=== PATIENT | female | born 1950 | race Caucasian/White ===

== ENCOUNTER → 2017-02-21 | Outpatient (CLI) | payer BC ==
--- NOTE | 2017-02-21 19:59 | Diagnostic Imaging Report ---
Bilateral screening mammogram. The current study was also evaluated with a Computer Aided Detection (CAD) system. INDICATION: Screening. No current complaints stated on the questionnaire. COMPARISON: 02/18/16. FINDINGS: The breasts are composed of scattered fibroglandular densities. Occasional benign-appearing calcifications are seen. Allowing for technique and positional differences, no suspicious change is seen. IMPRESSION: No significant change. ACR BI-RADS Category 2: Benign findings. Result letter will be mailed to the patient. Note: At least 10% of breast cancer is not imaged by mammography. Dictated by: Dictated on workstation # [id number]
== END ==
LOC: RAD 09:41
PROVIDERS: ATTEND Family Medicine
DX: Z12.31 Encounter for screening mammogram for malignant neoplasm of breast (principal)
CPT/HCPCS: 77067

== ENCOUNTER → 2017-09-05 | Outpatient (CLI) | payer MEDICARE ==
--- NOTE | 2017-09-05 17:20 | Diagnostic Imaging Report ---
Three views of the left knee. INDICATION: Left knee pain. FINDINGS: There is no fracture, dislocation, or radiopaque foreign body. There are tricompartment osteophytes seen. No significant joint space loss is identified. There is suggestion of a small suprapatellar effusion. IMPRESSION: Osteoarthritis. Suggestion of a small suprapatellar effusion. Dictated by: Dictated on workstation # [id number]
== END ==
LOC: RAD 14:14
DX: M17.12 Unilateral primary osteoarthritis, left knee (principal)
CPT/HCPCS: 73562

== ENCOUNTER → 2017-11-02 | Outpatient (CLI) | payer MEDICARE ==
--- NOTE | 2017-11-02 11:19 | Diagnostic Imaging Report ---
PROCEDURE: MRI left joint lower extremity without contrast. TECHNIQUE: Multiplanar, multisequence non contrast-enhanced MRI of the left lower extremity was accomplished. INDICATION: Left knee pain. FINDINGS: There is a small suprapatellar effusion. There is a small popliteal cyst measuring 2.4 x 0.7 x 3 cm. There is mild tendinosis in the distal quadriceps tendon, otherwise the extensor mechanism is intact. There is mild subcutaneous edema anterior to the proximal aspect of the patellar tendon. The PCL and ACL are intact. There is increased signal seen in the posterior root of the lateral meniscus which could be degenerative or related to a nondisplaced tear. The body of the medial meniscus demonstrates extrusion with no definite tear. The MCL and the lateral collateral ligament complex appears intact. Prominent marginal osteophytes are seen particularly medially and in the patellofemoral compartment. There is 50% cartilage thinning in the patellofemoral compartment and 25% cartilage thinning in the medial and lateral compartments suggested. No focal significant marrow signal abnormality. There are some subcutaneous mildly dilated veins compatible with varicose veins. Dilated veins within the medial head of the gastrocnemius muscle is also noted. IMPRESSION: 1. Moderate tricompartment osteoarthritis changes. 2. Small Cazares's cyst. 3. Varicose veins. Dictated by: Dictated on workstation # [id number]
== END ==
LOC: RAD 09:06
PROVIDERS: ATTEND Nurse Practitioner Family
DX: M17.12 Unilateral primary osteoarthritis, left knee (principal); I83.92 Asymptomatic varicose veins of left lower extremity; M71.22 Synovial cyst of popliteal space [Baker], left knee
CPT/HCPCS: 73721

== ENCOUNTER 2018-01-12 12:53 | Outpatient (RCR) | payer MEDICARE | END 2018-01-12 14:23 | disposition home or self-care (01) | PROVIDERS: ATTEND Orthopaedic Surgery | DX: M17.12 Unilateral primary osteoarthritis, left knee (principal) ==

== ENCOUNTER → 2018-03-02 | Outpatient (CLI) | payer MEDICARE ==
--- NOTE | 2018-03-03 11:56 | Diagnostic Imaging Report ---
Procedure: Digital mammogram. Indication: Bilateral screening. Comparison: This study was compared to prior exams of 02/21/2017, 02/18/2016 and 02/04/2015. At this time there are no current complaints. The current study was also evaluated with a Computer Aided Detection (CAD) system. FINDINGS: The fibroglandular tissue in both breasts is heterogeneously dense. This does limit the sensitivity of this exam. Overall, there does not appear to have been any significant change when compared to the prior study. No primary or secondary sign of malignancy is noted. IMPRESSION: There is no radiographic evidence for malignancy. Dictated on workstation # [id number]
== END ==
LOC: RAD 09:27
PROVIDERS: ATTEND Family Medicine
DX: Z12.31 Encounter for screening mammogram for malignant neoplasm of breast (principal)
CPT/HCPCS: 77067

== ENCOUNTER → 2018-05-08 | Outpatient (CLI) | payer MEDICARE ==
[2018-05-08 12:02] LABS: BASOPHILS % (AUTO) 0 % (0-10); EOSINOPHILS # (AUTO) 0.2 10^3/uL (0.0-0.3); EOSINOPHILS % (AUTO) 1 % (0-10); HEMATOCRIT 39 % (35-52); HEMOGLOBIN 12.5 G/DL (11.5-16.0); LYMPHOCYTES # (AUTO) 1.1 X 10^3 (1.0-4.0); LYMPHOCYTES % (AUTO) 8 % (12-44); MEAN CORPUSCULAR HEMOGLOBIN 29 PG (25-34); MEAN CORPUSCULAR HGB CONC 32 G/DL (32-36); MEAN CORPUSCULAR VOLUME 91 FL (80-99); MEAN PLATELET VOLUME 9.4 FL (7.4-10.4); MONOCYTES # (AUTO) 0.8 X 10^3 (0.0-1.0); MONOCYTES % (AUTO) 6 % (0-12); NEUTROPHILS # (AUTO) 11.1 X 10^3 (1.8-7.8); NEUTROPHILS % (AUTO) 84 % (42-75); PLATELET COUNT 268 10^3/uL (130-400); RED BLOOD COUNT 4.26 10^6/uL (4.35-5.85); RED CELL DISTRIBUTION WIDTH 14.9 % (10.0-14.5); WHITE BLOOD COUNT 13.2 10^3/uL (4.3-11.0)
[2018-05-08 12:25] LABS: ERYTHROCYTE SEDIMENTATION RATE 17 MM/HR (0-30)
[2018-05-08 12:28] LABS: CALCIUM 9.7 MG/DL (8.5-10.1); CREATININE SERUM 1.04 MG/DL (0.60-1.30); POTASSIUM 3.8 MMOL/L (3.6-5.0)
--- NOTE | 2018-05-08 13:04 | Diagnostic Imaging Report ---
INDICATION: Pneumonia. Patient complains of shortness of breath and cough. COMPARISON: No prior studies are available for comparison. FINDINGS: The heart is enlarged. The lungs are clear. No infiltrates are detected. There is no evidence of congestive failure. No effusion or pneumothorax is seen. IMPRESSION: 1. Cardiomegaly. 2. No acute pulmonary infiltrate is detected. 3. The report was called to Lucy/financial administration officer of Dr. Unique Frye by romulo@ 1:05 PM. Dictated by: Dictated on workstation # [id number]
== END ==
LOC: RAD 11:34
PROVIDERS: ATTEND Family Medicine
DX: J18.9 Pneumonia, unspecified organism (principal); I51.7 Cardiomegaly
CPT/HCPCS: 36415; 71046; 80048; 85025; 85652

== ENCOUNTER → 2018-05-10 | Outpatient (CLI) | payer MEDICARE ==
[~2018-05-10] MED LIST: IOHEXOL 350 MG/ML 150 ML (OMNIPAQUE 350) VIAL IV ONE; NS 250 ML (IVPB) BAG IV ONE
--- NOTE | 2018-05-10 15:16 | Diagnostic Imaging Report ---
PROCEDURE: CT angiography of the chest with contrast. TECHNIQUE: Multiple contiguous axial images were obtained through the chest after uneventful bolus administration of intravenous contrast. Reconstructed CTA MIP acquisitions were also performed. INDICATION: Dyspnea and elevated d-dimer. FINDINGS: There is good opacification of pulmonary arteries without intraluminal filling defect. The lungs appear clear and well expanded. There is no pleural pericardial fluid. No pathologic adenopathy is identified. IMPRESSION: No CTA evidence of pulmonary embolism. There is no evidence of acute thoracic aortic abnormality or other acute abnormality in the thorax. Dictated by: Dictated on workstation # [id number]
== END ==
LOC: RAD 13:40
PROVIDERS: ATTEND Nurse Practitioner Family
DX: R06.00 Dyspnea, unspecified (principal); R79.1 Abnormal coagulation profile
CPT/HCPCS: 71275

== ENCOUNTER → 2018-06-13 | Outpatient (CLI) | payer MEDICARE ==
[~2018-06-13] MED LIST changes: +AMLO5TAB2 PO; +APIX5TAB PO; +ASPI-983 PO; +ASPI-999 PO; +CARV6.25 PO; +CATHETER FLUSH 10 ML SYR IV PRN; +CLON0.2T PO; +COLE1TAB PO; +CYCL5TAB PO; +DILT120C82 PO; +FURO-124 PO; +GLUC-194 PO; -IOHEXOL 350 MG/ML 150 ML (OMNIPAQUE 350) VIAL IV ONE; +METO-395 PO; -NS 250 ML (IVPB) BAG IV ONE; +POTA10TA36 PO; +REGADENOSON 0.4 MG/5 ML SYR (LEXISCAN) IV ONE; +VALS320T15 PO
[2018-06-13 08:58] VITALS: BP 213/101
[2018-06-13 09:17] VITALS: BP 210/101
--- NOTE | 2018-06-13 23:52 | STRESS TEST ---
DATE OF SERVICE: 06/13/2018 RESTING AND POST REGADENOSON TECHNETIUM-99M TETROFOSMIN SPECT CT IMAGING ORDERING PHYSICIAN: Unique Frye DO PRIMARY CARE PHYSICIAN: Unique Frye DO CLINICAL DIAGNOSIS: Chest pain. Baseline images were carried out after injection of 10.94 mCi of technetium-99m Tetrofosmin. This was followed by 0.4 mg of regadenoson and 30.9 mCi of technetium-99m tetrofosmin for stress imaging. The electrocardiogram showed atrial fibrillation with a controlled ventricular rate and intermittent left bundle branch block. The electrocardiogram did not change significantly with regadenoson infusion. Review of images at rest and following stress does not indicate any significant perfusion defects consistent with significant myocardial ischemia or infarction. Review of images at rest and following stress indicates an anteroseptal perfusion defect, which is small and appears transient. Gated images show mild impairment in global left ventricular systolic function with ejection fraction of 46%. Left ventricular end diastolic volume is 104 mL. TID is absent (1.01). CONCLUSIONS: 1. This study suggests a small amount of anteroseptal ischemia. 2. Mild to moderate cardiomegaly. 3. Mild impairment in global left ventricular systolic function with ejection fraction 46%. 4. The electrocardiogram indicated atrial fibrillation with intermittent left bundle branch block. Job ID: [id number] DocumentID: [id number] Dictated Date: 06/13/2018 20:49:31 Certified Medicine Aide Date: 06/13/2018 22:46:07 Dictated By: DARRIAN KILGORE MD, MA, FACP, FACC, MTDD
== END ==
LOC: CARD 06:48
PROVIDERS: ATTEND Family Medicine
DX: R07.9 Chest pain, unspecified (principal); I51.7 Cardiomegaly
CPT/HCPCS: 78452; 93017

== ENCOUNTER 2018-06-21 10:29 | Outpatient (RCR) | payer MEDICARE ==
[2018-06-22] MEDS ORDERED: VALS320T15 PO (14:06)
[2018-06-22] MEDS ORDERED: CYCL5TAB PO (14:06)
[2018-06-22] MEDS ORDERED: ASPI-999 PO (14:06)
[2018-06-22] MEDS ORDERED: CLON0.2T PO (14:06)
[2018-06-22] MEDS ORDERED: GLUC-194 PO (14:06)
[2018-06-22] MEDS ORDERED: METO-395 PO (14:06)
[2018-06-22] MEDS ORDERED: COLE1TAB PO (14:06)
[2018-06-23] MEDS ORDERED: ASPI-983 PO (12:31)
[2018-06-24] MEDS ORDERED: FURO-124 PO (12:20)
[2018-06-24] MEDS ORDERED: AMLO5TAB2 PO (12:20)
[2018-06-24] MEDS ORDERED: CARV6.25 PO (12:20)
[2018-06-24] MEDS ORDERED: APIX5TAB PO (12:20)
[2018-06-24] MEDS ORDERED: DILT120C82 PO (12:20)
[2018-06-24] MEDS ORDERED: POTA10TA36 PO (12:20)
== END 2018-07-05 10:43 | disposition home or self-care (01) ==
PROVIDERS: ATTEND Family Medicine
DX: M54.2 Cervicalgia (principal); R51 Headache

== ENCOUNTER 2018-06-22 11:28 | Inpatient (IN) | payer MEDICARE ==
[~2018-06-22] VITALS: Ht 167.6 cm; Wt 104.5 kg
[2018-06-22] VITALS (14 sets, daily range): BP systolic 130–197; BP diastolic 79–179
[2018-06-22] MEDS ORDERED: PATIENT MAY USE OWN MEDS, ALL PO SCH (12:15)
[2018-06-22] MEDS ORDERED: ONDANSETRON 4 MG/2 ML (SDV) Z0FRAN IVP PRN (12:15)
[2018-06-22] MEDS ORDERED: ENOXAPARIN 40 MG/0.4 ML (LOVENOX) SYR SC NR (12:30)
--- NOTE | 2018-06-22 12:42 | Diagnostic Imaging Report ---
Indication: Chest pain Frontal chest obtained at 1229 hrs pm, and compared with 05/08/2018. There is cardiomegaly. There is central vascular congestion which appears similar to the prior study. There is some early infiltrate in the right lung base. There is no pneumothorax or pleural fluid. IMPRESSION: Cardiomegaly and central vascular congestion. Early infiltrate in right lung base. No pneumothorax or pleural fluid. Dictated by: Dictated on workstation # [id number]
[2018-06-22 12:45] LABS: BASOPHILS % (AUTO) 0 % (0-10); EOSINOPHILS # (AUTO) 0.2 10^3/uL (0.0-0.3); EOSINOPHILS % (AUTO) 3 % (0-10); HEMATOCRIT 37 % (35-52); LYMPHOCYTES # (AUTO) 0.8 X 10^3 (1.0-4.0); LYMPHOCYTES % (AUTO) 11 % (12-44); MEAN CORPUSCULAR HEMOGLOBIN 30 PG (25-34); MEAN CORPUSCULAR HGB CONC 33 G/DL (32-36); MEAN CORPUSCULAR VOLUME 92 FL (80-99); MEAN PLATELET VOLUME 9.6 FL (7.4-10.4); MONOCYTES # (AUTO) 0.5 X 10^3 (0.0-1.0); MONOCYTES % (AUTO) 7 % (0-12); NEUTROPHILS # (AUTO) 5.5 X 10^3 (1.8-7.8); NEUTROPHILS % (AUTO) 79 % (42-75); PLATELET COUNT 205 10^3/uL (130-400); RED BLOOD COUNT 3.98 10^6/uL (4.35-5.85); RED CELL DISTRIBUTION WIDTH 15.1 % (10.0-14.5)
[2018-06-22 13:04] LABS: ALANINE AMINOTRANSFERASE 30 U/L (0-55); ALKALINE PHOSPHATASE 77 U/L (40-136); BILIRUBIN,TOTAL 1.4 MG/DL (0.1-1.0); BUN/CREATININE RATIO 17; CALCIUM 9.6 MG/DL (8.5-10.1); CARBON DIOXIDE 28 MMOL/L (21-32); CHLORIDE 107 MMOL/L (98-107); CREATININE SERUM 1.08 MG/DL (0.60-1.30); GFR ESTIMATED 51; GLUCOSE 112 MG/DL (70-105); POTASSIUM 4.3 MMOL/L (3.6-5.0); SODIUM 143 MMOL/L (135-145); TOTAL PROTEIN 6.5 GM/DL (6.4-8.2)
[2018-06-22] MEDS ORDERED: CLON0.2T PO (14:06)
[2018-06-22] MEDS ORDERED: COLE1TAB PO (14:06)
[2018-06-22] MEDS ORDERED: METO-395 PO (14:06)
[2018-06-22] MEDS ORDERED: ASPI-999 PO (14:06)
[2018-06-22] MEDS ORDERED: GLUC-194 PO (14:06)
[2018-06-22] MEDS ORDERED: CYCL5TAB PO (14:06)
[2018-06-22] MEDS ORDERED: VALS320T15 PO (14:06)
[2018-06-22] MEDS ORDERED: DILTIAZEM 60 MG (CARDIZEM) TAB ONE (14:55)
[2018-06-22] MEDS ORDERED: amLODIPine 5 MG (NORVASC) TAB ONE (14:55)
[2018-06-22] MEDS ORDERED: amLODIPine 5 MG (NORVASC) TAB PO NR (15:00)
[2018-06-22] MEDS: DILTIAZEM 60 MG (CARDIZEM) TAB PO SCH ×2 (15:01→20:34)
[2018-06-22] MEDS ORDERED: CATHETER FLUSH 10 ML SYR IV PRN (15:15)
[2018-06-22] MEDS ORDERED: FUROSEMIDE 40 MG/4 ML INJ (LASIX) ONE (15:17)
[2018-06-22] MEDS ORDERED: RT-ALBUTEROL/IPRATROPIUM 3 ML (DUONEB) VIAL INH PRN (15:30)
[2018-06-22] MEDS ORDERED: FUROSEMIDE 40 MG/4 ML INJ (LASIX) IVP NR ×3 (15:30→18:30)
[2018-06-22] MEDS ORDERED: LORazepam INJ 2 MG/ML (ATIVAN) VIAL ONE (15:36)
[2018-06-22] MEDS ORDERED: LORazepam INJ 2 MG/ML (ATIVAN) VIAL IVP NR (15:45)
[2018-06-22] MEDS ORDERED: DILTIAZEM 25 MG/5 ML INJ (CARDIZEM) VIAL IV NR (15:45)
[2018-06-22] MEDS ORDERED: DILTIAZEM 25 MG/5 ML INJ (CARDIZEM) VIAL ONE (15:46)
[2018-06-22 15:52] LABS: MEAN PLATELET VOLUME 10.4 FL (7.4-10.4); RED BLOOD COUNT 4.61 10^6/uL (4.35-5.85); RED CELL DISTRIBUTION WIDTH 15.5 % (10.0-14.5); WHITE BLOOD COUNT 10.5 10^3/uL (4.3-11.0)
[2018-06-22 15:53] LABS: ABG BASE EXCESS 0.7 MMOL/L (-2.5-2.5); ABG OXYGEN SATURATION 99 % (94-100); ABG PCO2 42 MMHG (35-45); ABG PH 7.39 (7.37-7.43); ABG PO2 91 MMHG (79-93); ABG TCO2 26.7 MMOL/L (21.0-31.0)
[2018-06-22 15:54] LABS: ALLENS TEST POSITIVE
[2018-06-22 15:55] LABS: INSPIRED O2 4L; PATIENT TEMP 96.2; VENTILATOR NO
[2018-06-22] MEDS ORDERED: NS IV 1000 ML 1,000 ML ONE (16:00)
[2018-06-22] MEDS ORDERED: PROPOFOL DRIP (ICU) 0 ML IV ONE (16:00)
[2018-06-22] MEDS ORDERED: MIDAZOLAM 5 MG/5 ML (VERSED) VIAL ONE (16:00)
[2018-06-22 16:08] LABS: ALBUMIN 4.5 GM/DL (3.2-4.5); BILIRUBIN,TOTAL 1.6 MG/DL (0.1-1.0); CREATININE SERUM 1.01 MG/DL (0.60-1.30); TOTAL PROTEIN 7.5 GM/DL (6.4-8.2)
--- NOTE | 2018-06-22 16:11 | Pulmonary Consultation ---
History of Present Illness History of Present Illness Date of Consultation 06/22/18 1530 Time Seen by Provider: 18:00 Date of Admission History of Present Illness 68yo who was admitted from Dr. Frye's office secondary to progressive SOB and weakness. PT was found to have new onset AFib and recent stress test questioned anterolateral ischemia. After admission pt was ambulating to bathroom and became acutely more SOB. Pt also developed wheezing. Pt was placed on BiPAP and was given a total of 80mg of IV Lasix. Afib RVR with rate around 180's and Cardizem was given. I was called for a stat consult and upon entering room pt was in obvious respiratory distress with increased WOB while on BiPAP. PT agreed to intubation however while we were getting set for intubation pt showed improved respiratory distress. Since pt was improving I decided to hold off on intubation. PT diuresed over 2 liters after lasix. Cardiology is consulted and they are planning on cardiac catheterization. Unable to obtain full ROS secondary to Bipap and respiratory distress. I discussed patient extensively with RN, Dr. Turner and Dr. Frye. I have also discussed plan of care with patient and family. Allergies and Home Medications Allergies Coded Allergies: No Known Drug Allergies (Unverified , 04/19/11) Home Medications Amlodipine Besylate 5 Mg Tablet, 10 MG PO DAILY Prescribed by: ISAIAH ESCALONA on 06/24/18 1220 Apixaban 5 Mg Tablet, 5 MG PO BID Prescribed by: ISAIAH ESCALONA on 06/24/18 1220 Aspirin 81 Mg Tablet.dr, 81 MG PO DAILY, (Reported) Carvedilol 6.25 Mg Tablet, 6.25 MG PO BID Prescribed by: ISAIAH ESCALONA on 06/24/18 1220 Clonidine HCl 0.2 Mg Tablet, 0.2 MG PO HS, (Reported) Diltiazem HCl 120 Mg Cap.er.24h, 120 MG PO BID Prescribed by: ISAIAH ESCALONA on 06/24/18 1220 Furosemide 40 Mg Tablet, 40 MG PO DAILY Prescribed by: ISAIAH ESCALONA on 06/24/18 1220 Potassium Chloride 10 Meq Tab.er.prt, 10 MEQ PO DAILY Prescribed by: ISAIAH ESCALONA on 06/24/18 1220 Past Pqzpkuy-Qlwunl-Zxbosa Hx Patient Social History Recent Foreign Travel: No Contact w/Someone Who Travel: No Review of Systems Time Seen by Provider: 13:24 Sepsis Event Evaluation Height, Weight, BMI Height: 5'6.00" Weight: 252lbs. 0.0oz. 114.202826nn; 40.7 BMI Method: Exam Exam Vital Signs Date Time Temp Pulse Resp B/P (MAP) Pulse Ox O2 Delivery O2 Flow Rate FiO2 06/22/18 15:48 96.7 06/22/18 15:34 NIV Bilevel 50.00 06/22/18 15:33 149 42 96 50.00 06/22/18 15:31 Non Rebreather 15.00 06/22/18 15:14 93 94 28 06/22/18 13:00 99 06/22/18 12:30 93 18 173/123 (140) 97 Nasal Cannula 2.00 06/22/18 12:10 99.2 112 23 92 Room Air Height & Weight Height: 5'6.00" Weight: 252lbs. 0.0oz. 114.135826db; 40.7 BMI Method: General Appearance: Severe Distress HEENT: Normal ENT Inspection, Pharynx Normal Neck: Non Tender, Supple; No Carotid Bruit; JVD Respiratory: Accessory Muscle Use, Crackles, Decreased Breath Sounds, Respiratory Distress, Wheezing Cardiovascular: Regular Rate, Rhythm Gastrointestinal: normal bowel sounds, non tender, soft Extremity: Normal Capillary Refill, No Pedal Edema Neurologic/Psychiatric: Alert, Oriented x3 Skin: Normal Color, Warm/Dry Lymphatic: No Adenopathy Results Lab Laboratory Tests 06/22/18 12:35 06/22/18 15:40 Assessment/Plan Assessment/Plan Severe acute respiratory distress -Hold off on intubation and continue BiPAP -repeat labs and BNP pending -stat echo- (beign done now) and CTA CP -Cardiology following and planning cath Afib RVR -cardizem gtt I discussed with Dr. Turner,and Dr. Frye. Over 60 min was spent with patient , medical staff and family. Critical Care: Critically Ill Patient Time spent with patient (mins): 60 GOOD CHO DO Jun 22, 2018 16:11
[2018-06-22] MEDS: DILTIAZEM 125 MG/D5W 100 ML DRIP IV SCH ×2 (16:15)
[2018-06-22] MEDS ORDERED: NS IV 1000 ML 1,000 ML IV ONE ×2 (16:30)
[2018-06-22] MEDS ORDERED: NS 250 ML (IVPB) BAG IV ONE (17:15)
[2018-06-22] MEDS ORDERED: IOHEXOL 350 MG/ML 150 ML (OMNIPAQUE 350) VIAL IV ONE (17:15)
--- NOTE | 2018-06-22 17:48 | Diagnostic Imaging Report ---
PROCEDURE: CT angiography of the chest with contrast. TECHNIQUE: Multiple contiguous axial images were obtained through the chest after uneventful bolus administration of intravenous contrast. Reconstructed CTA MIP acquisitions were also performed. INDICATION: Shortness of breath, respiratory failure. COMPARISON: 05/10/18 FINDINGS: The heart remains mildly enlarged. There is no pericardial effusion. There is no lymphadenopathy. The pulmonary arteries and aorta are grossly unremarkable. There is no embolism. There are bilateral pleural effusions right greater than left with dependent atelectasis. There is central vascular congestion and borderline pulmonary edema. There is no focal infiltrate. Benign stable liver cysts are present. There is a small hiatal hernia. Osseous structures are age-appropriate. IMPRESSION: 1. Cardiac enlargement with central vascular congestion and borderline pulmonary edema. 2. No pulmonary embolism identified. 3. Bilateral pleural effusions with dependent atelectasis. Dictated by: Dictated on workstation # [id number]
--- NOTE | 2018-06-22 17:49 | Consultation-Cardiology ---
HPI-Cardiology Cardiology Consultation: Date of Consultation 06/22/18 Date of Admission Attending Physician Unique Frye DO Admitting Physician Unique Frye DO Consulting Physician Iris TURNER MD HPI: Time Seen by Provider: 15:30 Chief Complaint: Chest discomfort, atrial fibrillation, respiratory distress. This is a 68-year-old lady with history of recurrent pneumonia. Her last episode of pneumonia was one and a half month ago. She has history of irregular heart beating but denies atrial fibrillation. She had mild chest discomfort and had abnormal nuclear stress test with mild apical ischemia done by Dr. Todd. She also has history of hypertension. On the stress test she was noted to be in atrial fibrillation. She also had normal LV function on the stress test. She presented with new onset atrial fibrillation, chest discomfort and with breathing difficulties. Review of Systems-Cardiology Review of Systems Constitutional: As described under HPI; No As described under HPI, No no symptoms reported, No chills, No fever, No lightheadedness Eyes: No As described under HPI, No no symptoms reported, No blindness, No blurred vision, No contact lenses, No drainage, No decreased acuity, No foreign body sensation, No pain, No vision change Ears/Nose/Throat: No As described under HPI, No no symptoms reported, No chronic hearing loss, No ear discharge, No ear pain, No nasal drainage, No ulcerations Respiratory: No no symptoms reported; As described under HPI; No As described under HPI, No cough; orthopnea, shortness of breath; No SOB with excertion Cardiovascular: No no symptoms reported; As described under HPI; No As described under HPI; chest pain; No edema, No irregular heart rate, No lightheadedness, No palpitations Gastrointestinal: No no symptoms reported, No As described under HPI, No abdomen distended, No abdominal pain, No blood streaked bowels, No constipation , No diarrhea, No nausea, No vomiting, No stool coloration changes Genitourinary: No As described under HPI, No burning, No dysuria, No discharge , No frequency, No flank pain, No hematuria, No urgency : Yes : No Skin: No rash, No skin related problems, No ulcerations Psychiatric/Neurological: No anxiety, No depression, No seizure, No focal weakness, No syncope Hematologic: No bleeding abnormalities XML-Nhymdl-Vrbulw Hx Patient Social History Smoking Status: Never a Smoker Recent Foreign Travel: No Recent Infectious Disease Expo: No Immunizations Up To Date Date of Pneumonia Vaccine: May 28, 2015 Past Medical History PMH As described under Assessment. Family Medical History Family History: Dementia 19 MOTHER Diabetes mellitus G8 BROTHER FH: CABG (coronary artery bypass surgery) 19 FATHER FH: stroke 19 FATHER G8 BROTHER Myocardial infarction 19 FATHER TIAs G8 SISTER Allergies and Home Medications Allergies Coded Allergies: No Known Drug Allergies (Unverified , 04/19/11) Home Medications Aspirin 81 Mg Tab.chew, 81 MG PO DAILY, (Reported) Clonidine HCl 0.2 Mg Tablet, 0.2 MG PO HS, (Reported) Colestipol HCl 1 Gm Tablet, 1 GM PO TID, (Reported) Cyclobenzaprine HCl 5 Mg Tablet, 5-10 MG PO HS, (Reported) Glucosam/Chondroit/C/Manganese 1 Each Capsule, 1 EACH PO DAILY, (Reported) Metoprolol Succinate 100 Mg Tab.er.24h, 100 MG PO HS, (Reported) Valsartan 320 Mg Tablet, 320 MG PO DAILY, (Reported) Patient Home Medication List Home Medication List Reviewed: Yes Physical Exam-Cardiology Physical Exam Vital Signs/I&O 06/22/18 06/22/18 06/22/18 06/22/18 12:10 12:30 13:00 13:00 Temp 99.2 Pulse 112 93 99 99 Resp 23 18 22 B/P (MAP) 173/123 (140) 179/130 (146) Pulse Ox 92 97 96 O2 Delivery Room Air Nasal Cannula Nasal Cannula O2 Flow Rate 2.00 2.00 06/22/18 06/22/18 06/22/18 06/22/18 14:00 15:00 15:14 15:31 Pulse 80 104 93 Resp 15 38 B/P (MAP) 184/102 (129) 182/153 (163) Pulse Ox 96 93 94 O2 Delivery Nasal Cannula Nasal Cannula Non Rebreather O2 Flow Rate 2.00 2.00 15.00 FiO2 28 06/22/18 06/22/18 06/22/18 06/22/18 15:33 15:34 15:48 16:00 Temp 96.7 Pulse 149 Resp 42 Pulse Ox 96 O2 Delivery NIV Bilevel NIV Bilevel O2 Flow Rate 50.00 50.00 FiO2 50 06/22/18 06/22/18 06/22/18 16:00 17:00 17:14 Pulse 86 73 Resp 35 28 B/P (MAP) 197/132 (153) 159/99 (119) Pulse Ox 95 100 94 O2 Delivery NIV Bilevel NIV Bilevel Vapotherm O2 Flow Rate 50.00 50.00 15.00 FiO2 35 Capillary Refill : Constitutional: AAO x 3, apparent distress HEENT: No PERRL, No normal ENT inspection, No TMs normal, No pharynx normal, No scleral icterus (R), No scleral icterus (L), No pale conjunctivae (R), No pale conjunctivae (L), No photophobia, No TM abnormal (R), No TM abnormal (L), No pharyngeal erythema, No tonsillar exudate, No other, No discharge, No EOMI, No hearing is well preserved, No hard of hearing, No oral hygience is good, No ulceration, No xanthelasmas are seen Neck: No non-tender, No full range of motion, No supple, No normal inspection, No carotid bruit, No limited range of motion, No lymphadenopathy (R), No lymphadenopathy (L), No tender lateral, No tender midline, No thyromegaly, No other, No carotid pulses are 2 + bilaterally, No with good upstrokes Respiratory: accessory muscle use, respiratory distress, chest is bilaterally symmetric, rales Cardiovascular: No regular rate-rhythm; irregularly irregular; No extra beats, No parasternal heave is noted, No JVD, No edema, No bradycardia; tachycardia; No point of maximal impulse, No cardiac thrills are palpable; S1 and S2; No gallop/S3, No gallop/S4, No diastolic murmur, No systolic murmur, No friction rub, No click, No other Gastrointestinal: No tender, No soft, No round, No distended, No pulsatile mass , No organomegaly, No guarding, No rebound, No tenderness, No hernia, No mass, No audible bowel sounds, No abnormal bowel sounds, No abdominal bruits, No spleenomegaly, No other Rectal: deferred Extremities: No normal range of motion, No non-tender, No normal inspection, No pedal edema, No calf tenderness, No normal capillary refill, No pelvis stable , No calf tenderness, No inflammation, No pedal edema, No slow capillary refill , No swelling, No other, No abrasion, No clubbing, No cyanosis, No ecchymosis, No laceration, No no lower extremity edema bilateral, No significant edema, No tenderness, No wound Neurologic/Psychiatric: no motor/sensory deficits, alert, normal mood/affect, oriented x 3 Skin: No normal color, No warm/dry, No cyanosis, No cool, No diaphoresis, No damp, No ecchymosis, No jaundice, No mottled, No pallor, No rash, No tattoos/ piercings, No ulcerations, No rash on exposed areas, No ulcerations on exposed areas, No other Data Review Labs Laboratory Tests 06/22/18 12:35: White Blood Count 7.0, Red Blood Count 3.98L, Hemoglobin 12.0, Hematocrit 37, Mean Corpuscular Volume 92, Mean Corpuscular Hemoglobin 30, Mean Corpuscular Hemoglobin Concent 33, Red Cell Distribution Width 15.1H, Platelet Count 205, Mean Platelet Volume 9.6, Neutrophils (%) (Auto) 79H, Lymphocytes (%) (Auto) 11L , Monocytes (%) (Auto) 7, Eosinophils (%) (Auto) 3, Basophils (%) (Auto) 0, Neutrophils # (Auto) 5.5, Lymphocytes # (Auto) 0.8L, Monocytes # (Auto) 0.5, Eosinophils # (Auto) 0.2, Basophils # (Auto) 0.0, Sodium Level 143, Potassium Level 4.3, Chloride Level 107, Carbon Dioxide Level 28, Anion Gap 8, Blood Urea Nitrogen 18, Creatinine 1.08, Estimat Glomerular Filtration Rate 51, BUN/ Creatinine Ratio 17, Glucose Level 112H, Calcium Level 9.6, Total Bilirubin 1.4H , Aspartate Amino Transf (AST/SGOT) 31, Alanine Aminotransferase (ALT/SGPT) 30, Alkaline Phosphatase 77, Troponin I < 0.30, Total Protein 6.5, Albumin 4.0 06/22/18 15:40: White Blood Count 10.5, Red Blood Count 4.61, Hemoglobin 14.0, Hematocrit 42, Mean Corpuscular Volume 91, Mean Corpuscular Hemoglobin 30, Mean Corpuscular Hemoglobin Concent 33, Red Cell Distribution Width 15.5H, Platelet Count 258, Mean Platelet Volume 10.4, Sodium Level 143, Potassium Level 4.0, Chloride Level 107, Carbon Dioxide Level 26, Anion Gap 10, Blood Urea Nitrogen 17, Creatinine 1.01, Estimat Glomerular Filtration Rate 55, BUN/Creatinine Ratio 17 , Glucose Level 118H, Calcium Level 10.0, Total Bilirubin 1.6H, Aspartate Amino Transf (AST/SGOT) 36H, Alanine Aminotransferase (ALT/SGPT) 36, Alkaline Phosphatase 93, Troponin I < 0.30, Total Protein 7.5, Albumin 4.5, B-Type Natriuretic Peptide 1500.2H 06/22/18 15:45: Blood Gas Puncture Site RIGHT RADIAL, Blood Gas Patient Temperature 96.2, Arterial Blood pH 7.39, Arterial Blood Partial Pressure CO2 42, Arterial Blood Partial Pressure O2 91, Arterial Blood HCO3 25, Arterial Blood Total CO2 26.7, Arterial Blood Oxygen Saturation 99, Arterial Blood Base Excess 0.7, Bill Test POSITIVE, Blood Gas Ventilator Setting NO, Blood Gas Inspired Oxygen 4L ECG Impression ECG Initial ECG Impression: Atrial Fibrillation w/RVR A/P-Cardiology Assessment/Admission Diagnosis Severe respiratory distress, Chest discomfort, Atrial fibrillation with rapid ventricular rate, Recent pneumonia, Hypertension Plan Severe respiratory distress, difficulty breathing, she was started on BiPAP. Given Lasix 40 mg and then 40 mg more. By mouth Cardizem was given. Pulmonology consultation was requested. Lower extremity swelling which occurred recently. Pulmonary embolism needs to be ruled out with chest CT angiogram. Bedside echocardiogram was done which showed normal LV function with moderate concentric LVH. Right atrial enlargement. No significant valvular heart disease. Dilated IVC suggesting increased right atrial pressure. Mild pulmonary hypertension. I remained at the bedside during the entire echocardiogram. Discussed with pulmonology with possible intubation. Critical patient requiring over 30 minutes of bedside care. Chest discomfort, no chest discomfort on my examination. Nuclear stress testing had shown reversible apical ischemia. Coronary angiography when stable. Atrial fibrillation with rapid ventricular rate, Cardizem by mouth 60 mg. Cardizem infusion will be started. Eliquis. Recent pneumonia, Hypertension Thank you for your consultation. Please call me if you have any questions. Lorene Turner MD, FACP, FACC, FSCAI, FHRS, CCDS Interventional Cardiology Cardiac Electrophysiology Vascular Medicine and Endovascular Interventions Iris TURNER MD Jun 22, 2018 5:49 pm
--- NOTE | 2018-06-22 17:53 | History & Physicial ---
History of Present Illness History of Present Illness Reason for visit/HPI This is a 68 year old female who presented to my office in followup with complaint of weakness and worsening shortness of air. She was in new onset atrial fibrillation in my office and her recent chemical stress test showed some possible anterolateral ischemia so it was decided to direct admit her to ICU stepdown. The patient was admitted and got up to go to the [facility] after which she had sudden onset of shortness of air requiring oxygen. This worsened with associated wheezing and the patient had to be placed on BIPAP. Her pulse jumped to the 160s and her BP was in the 180s over 90s. Oral cardizem was ordered and IV lasix and pulmonology was consulted. She was close to intubation when her respiratory status started to improve. She has diuresed over 2 liters and her breathing is much improved. Cardiology is planning on a cardiac catheterization in the morning. Date of Admission Jun 22, 2018 at 12:05 Date Seen by Provider: Jun 22, 2018 Time Seen by Provider: 17:48 I consulted on this patient on 06/22/18 17:47 Attending Physician Unique Frye DO Admitting Physician Unique Frye DO Consult Allergies and Home Medications Allergies Coded Allergies: No Known Drug Allergies (Unverified , 04/19/11) Home Medications Aspirin 81 Mg Tab.chew, 81 MG PO DAILY, (Reported) Clonidine HCl 0.2 Mg Tablet, 0.2 MG PO HS, (Reported) Colestipol HCl 1 Gm Tablet, 1 GM PO TID, (Reported) Cyclobenzaprine HCl 5 Mg Tablet, 5-10 MG PO HS, (Reported) Glucosam/Chondroit/C/Manganese 1 Each Capsule, 1 EACH PO DAILY, (Reported) Metoprolol Succinate 100 Mg Tab.er.24h, 100 MG PO HS, (Reported) Valsartan 320 Mg Tablet, 320 MG PO DAILY, (Reported) Patient Home Medication List Home Medication List Reviewed: Yes Past Thkodcx-Lmvkns-Nencnm Hx Patient Social History Marrital Status: Smoking Status: Never a Smoker Recent Foreign Travel: No Contact w/other who traveled: No Recent Infectious Disease Expo: No Immunizations Up To Date Date of Pneumonia Vaccine: May 28, 2015 Family Medical History Family Hx: Dementia 19 MOTHER Diabetes mellitus G8 BROTHER FH: CABG (coronary artery bypass surgery) 19 FATHER FH: stroke 19 FATHER G8 BROTHER Myocardial infarction 19 FATHER TIAs G8 SISTER Constitutional: weakness EENTM: No see HPI, No no symptoms reported, No ear discharge, No hearing loss, No ear pain, No blurred vision, No double vision, No eye pain, No tearing, No vision loss, No dental problems, No hoarseness, No mouth pain, No mouth swelling , No epistaxis, No nose congestion, No nose pain, No throat pain, No throat swelling, No other Respiratory: dyspnea on exertion, short of breath, wheezing Cardiovascular: chest pain (mild substernal chest pressure), edema (recently increased) Gastrointestinal: No RUQ, No LUQ, No RLQ, No LLQ, No no symptoms reported, No see HPI, No abdominal pain, No constipation, No diarrhea, No dysphagia, No hematemesis, No heartburn, No jaundice, No loss of appetite, No melena, No nausea, No vomiting, No other Genitourinary: No no symptoms reported, No see HPI, No decreased output, No discharge, No dysuria, No frequency, No hematuria, No hesitancy, No incontinence , No nocturia, No pain, No other Musculoskeletal: muscle weakness Skin: No no symptoms reported, No see HPI, No change in color, No change in hair/nails, No dryness, No hx of skin cancer, No lesions, No lumps, No pruritus , No rash, No other Psychiatric/Neurological: Weakness Physical Exam Vital Signs Vital Signs - First Documented 06/22/18 06/22/18 06/22/18 12:10 12:30 15:14 Temp 99.2 Pulse 112 Resp 23 B/P (MAP) 173/123 (140) Pulse Ox 92 O2 Delivery Room Air O2 Flow Rate 2.00 FiO2 28 Capillary Refill : Height, Weight, BMI Height: 5'6.00" Weight: 240lbs. 6.0oz. [id number]; 38.8 BMI Method: General Appearance: Mild Distress HEENT: Pharynx Normal Neck: Supple Respiratory: Lungs Clear Cardiovascular: Systolic Murmur, Gallop/S4, Irregularly Irregular, Tachycardia Gastrointestinal: Normal Bowel Sounds, Non Tender, Soft Rectal: Deferred Back: No CVA Tenderness Extremity: Non Tender, No Pedal Edema Neurologic/Psychiatric: Alert, Oriented x3 Skin: Normal Color, Warm/Dry Comments Laboratory Tests 06/22/18 12:35: White Blood Count 7.0, Red Blood Count 3.98L, Hemoglobin 12.0, Hematocrit 37, Mean Corpuscular Volume 92, Mean Corpuscular Hemoglobin 30, Mean Corpuscular Hemoglobin Concent 33, Red Cell Distribution Width 15.1H, Platelet Count 205, Mean Platelet Volume 9.6, Neutrophils (%) (Auto) 79H, Lymphocytes (%) (Auto) 11L , Monocytes (%) (Auto) 7, Eosinophils (%) (Auto) 3, Basophils (%) (Auto) 0, Neutrophils # (Auto) 5.5, Lymphocytes # (Auto) 0.8L, Monocytes # (Auto) 0.5, Eosinophils # (Auto) 0.2, Basophils # (Auto) 0.0, Sodium Level 143, Potassium Level 4.3, Chloride Level 107, Carbon Dioxide Level 28, Anion Gap 8, Blood Urea Nitrogen 18, Creatinine 1.08, Estimat Glomerular Filtration Rate 51, BUN/ Creatinine Ratio 17, Glucose Level 112H, Calcium Level 9.6, Total Bilirubin 1.4H , Aspartate Amino Transf (AST/SGOT) 31, Alanine Aminotransferase (ALT/SGPT) 30, Alkaline Phosphatase 77, Troponin I < 0.30, Total Protein 6.5, Albumin 4.0 06/22/18 15:40: White Blood Count 10.5, Red Blood Count 4.61, Hemoglobin 14.0, Hematocrit 42, Mean Corpuscular Volume 91, Mean Corpuscular Hemoglobin 30, Mean Corpuscular Hemoglobin Concent 33, Red Cell Distribution Width 15.5H, Platelet Count 258, Mean Platelet Volume 10.4, Sodium Level 143, Potassium Level 4.0, Chloride Level 107, Carbon Dioxide Level 26, Anion Gap 10, Blood Urea Nitrogen 17, Creatinine 1.01, Estimat Glomerular Filtration Rate 55, BUN/Creatinine Ratio 17 , Glucose Level 118H, Calcium Level 10.0, Total Bilirubin 1.6H, Aspartate Amino Transf (AST/SGOT) 36H, Alanine Aminotransferase (ALT/SGPT) 36, Alkaline Phosphatase 93, Troponin I < 0.30, Total Protein 7.5, Albumin 4.5, B-Type Natriuretic Peptide 1500.2H 06/22/18 15:45: Blood Gas Puncture Site RIGHT RADIAL, Blood Gas Patient Temperature 96.2, Arterial Blood pH 7.39, Arterial Blood Partial Pressure CO2 42, Arterial Blood Partial Pressure O2 91, Arterial Blood HCO3 25, Arterial Blood Total CO2 26.7, Arterial Blood Oxygen Saturation 99, Arterial Blood Base Excess 0.7, Bill Test POSITIVE, Blood Gas Ventilator Setting NO, Blood Gas Inspired Oxygen 4L Assessment/Plan Assessment and Plan 1. New onset Atrial Fibrillation--admit, rate control, eliquis started, cardiology consulted 2. Acute Respiratory Failure due to Diastolic Dysfunction--improved after diuresis 3. Chest Pressure--cardiac catheterization in AM 4. Hypertension--started on Cardizem and has IV lopressor prn Admission Diagnosis Admission Status: Inpatient Order (span 2 midnights) Reason for Inpatient Admission: Acute Respiratory Distress and new onset atrial fibrillation which will require at least 2 midnights to assess and adjust medications UNIQUE FRYE DO Jun 22, 2018 17:53
[2018-06-22] MEDS ORDERED: TEMAZEPAM 15 MG (RESTORIL) CAP PO PRN (18:00)
[2018-06-22] MEDS: meTOprolol 5 MG/5 ML (LOPRESSOR) VIAL IV PRN (18:18)
[2018-06-22] MEDS: RT-ALBUTEROL/IPRATROPIUM 3 ML (DUONEB) VIAL INH SCH (18:26)
--- NOTE | 2018-06-22 18:58 | Diagnostic Imaging Report ---
CLINICAL INDICATION: Patient with shortness of air. COMPARISON: None. PROCEDURE: Real-time bilateral lower extremity venous Doppler duplex evaluation is performed from the inguinal region through the popliteal fossa. The calf venous structures were unable to be evaluated due to lower extremity edema. FINDINGS: Limited exam due to patient body habitus and lower extremity swelling. 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 The deep venous system is well visualized and is easily compressible. There is no evidence of deep venous thrombosis, valvular incompetence, or significant collateral circulation. IMPRESSION: 1: Limited exam due to patient body habitus and lower extremity swelling. There is no ultrasound Doppler evidence of deep venous thrombosis in the bilateral lower extremities. 2: Left Cazares's cyst. Dictated by: Dictated on workstation # [id number]
[2018-06-22] MEDS: APIXABAN 5 MG (ELIQUIS) TABLET PO SCH (20:33)
[2018-06-22] MEDS: ACETAMINOPHEN 325 MG TABLET PO PRN (20:34)
[2018-06-22] MEDS ORDERED: meTOprolol TARTRATE 25 MG (LOPRESSOR) TABLET ONE (21:33)
[2018-06-22] MEDS: meTOprolol TARTRATE 25 MG (LOPRESSOR) TABLET PO SCH (21:44)
[2018-06-22] MEDS: CATHETER FLUSH 10 ML SYR IV SCH (22:00)
[2018-06-23] VITALS (30 sets, daily range): BP systolic 84–182; BP diastolic 63–125
[2018-06-23] MEDS: RT-ALBUTEROL/IPRATROPIUM 3 ML (DUONEB) VIAL INH SCH ×4 (02:48→19:35)
[2018-06-23] MEDS: CATHETER FLUSH 10 ML SYR IV SCH ×3 (05:13→22:22)
[2018-06-23 06:22] LABS: BASOPHILS % (AUTO) 1 % (0-10); EOSINOPHILS # (AUTO) 0.3 10^3/uL (0.0-0.3); EOSINOPHILS % (AUTO) 4 % (0-10); HEMATOCRIT 39 % (35-52); HEMOGLOBIN 12.6 G/DL (11.5-16.0); LYMPHOCYTES # (AUTO) 1.2 X 10^3 (1.0-4.0); LYMPHOCYTES % (AUTO) 19 % (12-44); MEAN CORPUSCULAR HEMOGLOBIN 29 PG (25-34); MEAN CORPUSCULAR HGB CONC 33 G/DL (32-36); MEAN CORPUSCULAR VOLUME 90 FL (80-99); MEAN PLATELET VOLUME 10.2 FL (7.4-10.4); MONOCYTES # (AUTO) 0.6 X 10^3 (0.0-1.0); MONOCYTES % (AUTO) 10 % (0-12); NEUTROPHILS # (AUTO) 4.4 X 10^3 (1.8-7.8); NEUTROPHILS % (AUTO) 68 % (42-75); PLATELET COUNT 214 10^3/uL (130-400); RED CELL DISTRIBUTION WIDTH 15.3 % (10.0-14.5); WHITE BLOOD COUNT 6.6 10^3/uL (4.3-11.0)
[2018-06-23 06:40] LABS: BILIRUBIN,TOTAL 2.6 MG/DL (0.1-1.0); CALCIUM 9.7 MG/DL (8.5-10.1); POTASSIUM 3.1 MMOL/L (3.6-5.0); TOTAL PROTEIN 6.5 GM/DL (6.4-8.2)
[2018-06-23] MEDS: meTOprolol 5 MG/5 ML (LOPRESSOR) VIAL IV PRN ×2 (06:42→17:29)
[2018-06-23] MEDS: KCL 20 MEQ TAB (K-DUR) PO SCH (06:43)
[2018-06-23] MEDS: MAGNESIUM 1 GM/100 ML IVPB 100 ML IV SCH (06:43)
[2018-06-23] MEDS: POTASSIUM CL 10MEQ/50ML IVPB 50 ML IV SCH ×3 (06:44→07:42)
[2018-06-23] MEDS ORDERED: NS (IVPB) 250 ML ONE (06:49)
[2018-06-23] MEDS ORDERED: HEParin (CATH LAB) 2,000 ML IV ONE (07:32)
[2018-06-23] MEDS ORDERED: NS IV 1000 ML 1,000 ML ONE (07:32)
[2018-06-23] MEDS ORDERED: LIDOCAINE 1% INJ 20 ML 20 ML VIAL ONE (07:32)
[2018-06-23] MEDS: ASPIRIN E.C. 81 MG (ECOTRIN) TAB PO SCH (07:52)
[2018-06-23] MEDS: APIXABAN 5 MG (ELIQUIS) TABLET PO SCH ×2 (07:52→20:57)
[2018-06-23] MEDS: DILTIAZEM 60 MG (CARDIZEM) TAB PO SCH ×3 (07:52→20:57)
[2018-06-23] MEDS: meTOprolol TARTRATE 25 MG (LOPRESSOR) TABLET PO SCH ×2 (07:53→20:57)
[2018-06-23] MEDS: ACETAMINOPHEN 325 MG TABLET PO PRN (07:58)
[2018-06-23] MEDS ORDERED: POTASSIUM CL 10MEQ/50ML IVPB 50 ML IV NR (08:30)
[2018-06-23] MEDS ORDERED: KCL 10 MEQ TAB (MICRO K) PO NR (09:00)
[2018-06-23] MEDS ORDERED: ASPI-983 PO (12:31)
--- NOTE | 2018-06-23 13:07 | Progress Note (SOAP) ---
Subjective Date Seen by Provider: Jun 23, 2018 Time Seen by Provider: 13:03 Subjective/Events-last exam Fwup new onset atrial fibrillation, diastolic dysfunction with acute respiratory failure, edema, hypertension. C/O JEAN-BAPTISTE. Did not sleep well but did not try sleeping med last night. Family concerned about worsening memory. Objective Exam Vital Signs Date Time Temp Pulse Resp B/P (MAP) Pulse Ox O2 Delivery O2 Flow Rate FiO2 06/23/18 11:00 71 18 165/100 (121) 95 Vapotherm 40.00 12.00 06/23/18 10:00 78 13 158/105 (122) 94 Vapotherm 40.00 12.00 06/23/18 09:21 Vapotherm 40.00 12.00 06/23/18 09:02 92 Vapotherm 12.00 40 06/23/18 09:00 Vapotherm 15.00 45 06/23/18 09:00 98 13 159/125 (136) 96 Vapotherm 45.00 15.00 06/23/18 08:00 97.1 Vapotherm 45.00 15.00 06/23/18 08:00 73 12 159/108 (125) 97 Vapotherm 45.00 15.00 06/23/18 08:00 Vapotherm 15.00 45 06/23/18 07:00 68 162/104 (123) 96 Vapotherm 45.00 15.00 06/23/18 07:00 66 06/23/18 06:00 75 14 165/106 (125) 97 Vapotherm 45.00 15.00 06/23/18 05:00 66 20 158/105 (122) 94 Vapotherm 45.00 15.00 06/23/18 04:00 Vapotherm 15.00 45 06/23/18 04:00 64 19 173/85 (114) 91 Vapotherm 45.00 15.00 06/23/18 03:00 51 18 169/104 (125) 91 Vapotherm 45.00 15.00 06/23/18 02:50 92 Vapotherm 15.00 45 06/23/18 02:00 63 14 143/89 (107) 96 Vapotherm 45.00 15.00 06/23/18 01:00 69 36 136/108 (117) 95 Vapotherm 45.00 15.00 06/23/18 01:00 69 06/23/18 00:00 Vapotherm 15.00 45 06/23/18 00:00 53 28 155/84 (107) 91 Vapotherm 45.00 15.00 06/23/18 00:00 98.2 06/22/18 23:00 67 18 143/80 (101) 93 Vapotherm 45.00 15.00 06/22/18 22:15 61 11 94 Vapotherm 45.00 15.00 06/22/18 22:00 60 14 148/86 (106) 92 Vapotherm 35.00 15.00 06/22/18 21:00 69 14 130/119 (123) 93 Vapotherm 35.00 15.00 06/22/18 21:00 94 Vapotherm 15.00 35 06/22/18 20:00 97.1 06/22/18 20:00 High Flow N/C 15.00 35 06/22/18 20:00 81 27 154/103 (120) 94 Vapotherm 35.00 15.00 06/22/18 19:55 Vapotherm 35.00 15.00 06/22/18 19:00 81 30 184/122 (142) 95 Vapotherm 35.00 15.00 06/22/18 19:00 81 06/22/18 18:32 95 Vapotherm 15.00 35 06/22/18 18:00 78 14 183/79 (113) 94 Vapotherm 35.00 15.00 06/22/18 17:14 94 Vapotherm 15.00 35 06/22/18 17:12 Vapotherm 35.00 15.00 06/22/18 17:00 73 28 159/99 (119) 100 NIV Bilevel 50.00 06/22/18 16:00 86 35 197/132 (153) 95 NIV Bilevel 50.00 06/22/18 16:00 NIV Bilevel 50 06/22/18 15:48 96.7 06/22/18 15:34 NIV Bilevel 50.00 06/22/18 15:33 149 42 96 50.00 06/22/18 15:31 Non Rebreather 15.00 06/22/18 15:14 93 94 28 06/22/18 15:00 104 38 182/153 (163) 93 Nasal Cannula 2.00 06/22/18 14:00 80 15 184/102 (325) 96 Nasal Cannula 2.00 I & O 06/23/18 07:00 Intake Total 930 ml Output Total 9270 ml Balance -8340 ml Capillary Refill : General Appearance: No Apparent Distress Neck: Supple Respiratory: Lungs Clear Cardiovascular: Systolic Murmur, Gallop/S4, Irregularly Irregular Gastrointestinal: normal bowel sounds, non tender, soft Extremity: Non Tender, No Calf Tenderness, No Pedal Edema Neurologic/Psychiatric: Alert, Oriented x3 Results Lab Laboratory Tests 06/22/18 15:40: White Blood Count 10.5, Red Blood Count 4.61, Hemoglobin 14.0, Hematocrit 42, Mean Corpuscular Volume 91, Mean Corpuscular Hemoglobin 30, Mean Corpuscular Hemoglobin Concent 33, Red Cell Distribution Width 15.5H, Platelet Count 258, Mean Platelet Volume 10.4, Sodium Level 143, Potassium Level 4.0, Chloride Level 107, Carbon Dioxide Level 26, Anion Gap 10, Blood Urea Nitrogen 17, Creatinine 1.01, Estimat Glomerular Filtration Rate 55, BUN/Creatinine Ratio 17 , Glucose Level 118H, Calcium Level 10.0, Total Bilirubin 1.6H, Aspartate Amino Transf (AST/SGOT) 36H, Alanine Aminotransferase (ALT/SGPT) 36, Alkaline Phosphatase 93, Troponin I < 0.30, B-Type Natriuretic Peptide 1500.2H, Total Protein 7.5, Albumin 4.5 06/22/18 15:45: Blood Gas Puncture Site RIGHT RADIAL, Blood Gas Patient Temperature 96.2, Arterial Blood pH 7.39, Arterial Blood Partial Pressure CO2 42, Arterial Blood Partial Pressure O2 91, Arterial Blood HCO3 25, Arterial Blood Total CO2 26.7, Arterial Blood Oxygen Saturation 99, Arterial Blood Base Excess 0.7, Bill Test POSITIVE, Blood Gas Ventilator Setting NO, Blood Gas Inspired Oxygen 4L 06/22/18 19:08: Troponin I < 0.30, D-Dimer 2.75H 06/23/18 06:05: White Blood Count 6.6, Red Blood Count 4.30L, Hemoglobin 12.6, Hematocrit 39, Mean Corpuscular Volume 90, Mean Corpuscular Hemoglobin 29, Mean Corpuscular Hemoglobin Concent 33, Red Cell Distribution Width 15.3H, Platelet Count 214, Mean Platelet Volume 10.2, Sodium Level 143, Potassium Level 3.1L, Chloride Level 97L, Carbon Dioxide Level 34H, Anion Gap 12, Blood Urea Nitrogen 15, Creatinine 1.00, Estimat Glomerular Filtration Rate 55, BUN/Creatinine Ratio 15 , Glucose Level 93, Calcium Level 9.7, Total Bilirubin 2.6H, Aspartate Amino Transf (AST/SGOT) 30, Alanine Aminotransferase (ALT/SGPT) 28, Alkaline Phosphatase 83, Total Protein 6.5, Albumin 4.0, Neutrophils (%) (Auto) 68, Lymphocytes (%) (Auto) 19, Monocytes (%) (Auto) 10, Eosinophils (%) (Auto) 4, Basophils (%) (Auto) 1, Neutrophils # (Auto) 4.4, Lymphocytes # (Auto) 1.2, Monocytes # (Auto) 0.6, Eosinophils # (Auto) 0.3, Basophils # (Auto) 0.0 Assessment/Plan Assessment/Plan Assess & Plan/Chief Complaint 1. New onset atrial fibrillation--on eliquis and cardizem and rate controlled, cardiac cath today 2. Diastolic Dysfunction with Acute Respiratory Failure--improved, cath today 3. Hypertension--on cardizem with lopressor prn 4. Memory Loss--will Check CT scan of brain and carotid dopplers Clinical Quality Measures Admission Status Admission Dx 1. New onset Atrial Fibrillation--admit, rate control, eliquis started, cardiology consulted 2. Acute Respiratory Failure due to Diastolic Dysfunction--improved after diuresis 3. Chest Pressure--cardiac catheterization in AM 4. Hypertension--started on Cardizem and has IV lopressor prn DVT/VTE Risk/Contraindication: Risk Factor Score Per Nursin RFS Level Per Nursing on Admit: 4+=Very High CAPO SEE DO Jun 23, 2018 13:07
[2018-06-23] MEDS ORDERED: MIDAZOLAM 5 MG/5 ML (VERSED) VIAL ONE (13:52)
[2018-06-23] MEDS ORDERED: fentaNYL INJECTION 100 MCG/2 ML AMP ONE (13:52)
--- NOTE | 2018-06-23 14:20 | Diagnostic Imaging Report ---
PROCEDURE: CT head without contrast. TECHNIQUE: Multiple contiguous axial images were obtained through the brain without the use of intravenous contrast. INDICATION: Memory loss, possible TIAs. COMPARISON: Study correlated with brain MRI 10/28/2015. FINDINGS: Periventricular and subcortical white matter disease when the differing modalities are taken into account does not appear convincingly changed and is most likely reflective of the sequelae of chronic small vessel disease. No sulcal effacement. No findings suggestive of cortical edema. No intracerebral hemorrhage, mass, or mass effect. The basilar cisterns are patent. The ventricles are nondilated and nondisplaced. The orbits, sinuses, and calvarium appear nonacute. IMPRESSION: Chronic white matter small vessel sequelae. No findings of edema, hemorrhage, or acute pathology. Dictated by: Dictated on workstation # [id number]
[2018-06-23] MEDS ORDERED: ENALAPRILAT 2.5 MG/2 ML (VASOTEC) VIAL IV ONE (15:05)
--- NOTE | 2018-06-23 15:08 | Cardiac Procedure Note-CS/ASA ---
Pre-Procedure Note Pre-Op Procedure Note H&P Reviewed The H&P was reviewed, patient examined and no changes noted. Date H&P Reviewed: Jun 23, 2018 Time H&P Reviewed: 14:00 Conscious Sedation Pre-Proced Time Reviewed: 14:00 ASA Class: 3 Airway Mallampati Classification: (inaja appropriate class) I. II. III, IV Lungs Heart ASA score ASA 1: a normal healthy patient ASA 2: a patient with a mild systemic disease (mid diabetes, controlled hypertension, obesity ASA 3: a patient with a severe systemic disease that limits activity (angina , COPD, prior Myocardial infarction) ASA 4: a patient with an incapacitating disease that is a constant threat to life (CHF, renal failure) ASA 5: a moribund patient not expected to survive 24 hrs. (ruptured aneurysm) ASA 6: a declared brain patient whose organs are being harvested. For emergent operations, add the letter E after the classification Grade 1 Sedation Plan: Analgesia, Amnesia, Plan communicated to team members, Discussed options with patient/fam, Discussed risks with patient/fam Note The patient is an appropriate candidate to undergo the planned procedure, sedation, and anesthesia. The patient immediately re-assessed prior to indication. Iris SALMON MD Jun 23, 2018 3:08 pm
--- NOTE | 2018-06-23 15:08 | Cardiology Progress Note ---
Cardiology SOAP Progress Note Subjective: No cardiac complaints. Objective: I&O/Vital Signs 06/23/18 06/23/18 06/23/18 06/23/18 04:00 04:00 05:00 06:00 Pulse 64 66 75 Resp 19 20 14 B/P (MAP) 173/85 (114) 158/105 (122) 165/106 (125) Pulse Ox 91 94 97 O2 Delivery Vapotherm Vapotherm Vapotherm Vapotherm O2 Flow Rate 45.00 15.00 45.00 45.00 15.00 15.00 15.00 FiO2 45 06/23/18 06/23/18 06/23/18 06/23/18 07:00 07:00 08:00 08:00 Pulse 66 68 73 Resp 12 B/P (MAP) 162/104 (123) 159/108 (125) Pulse Ox 96 97 O2 Delivery Vapotherm Vapotherm Vapotherm O2 Flow Rate 45.00 15.00 45.00 15.00 15.00 FiO2 45 06/23/18 06/23/18 06/23/18 06/23/18 08:00 09:00 09:00 09:02 Temp 97.1 Pulse 98 Resp 13 B/P (MAP) 159/125 (136) Pulse Ox 96 92 O2 Delivery Vapotherm Vapotherm Vapotherm Vapotherm O2 Flow Rate 45.00 45.00 15.00 12.00 15.00 15.00 FiO2 45 40 06/23/18 06/23/18 06/23/18 06/23/18 09:21 10:00 11:00 12:00 Pulse 78 71 Resp 13 18 B/P (MAP) 158/105 (122) 165/100 (121) Pulse Ox 94 95 O2 Delivery Vapotherm Vapotherm Vapotherm Vapotherm O2 Flow Rate 40.00 40.00 40.00 12.00 12.00 12.00 12.00 FiO2 40 06/23/18 13:00 Pulse 77 06/23/18 00:00 Intake Total 460 ml Output Total 7270 ml Balance -6810 ml Weight (Pounds): 225 Weight (Ounces): 6.0 Weight (Calculated Kilograms): [id number] Constitutional: AAO x 3, apparent distress Respiratory: chest is bilaterally symmetric, lungs clear to auscultation Cardiovascular: No regular rate-rhythm; irregularly irregular; No extra beats, No parasternal heave is noted, No JVD, No edema, No bradycardia; tachycardia; No point of maximal impulse, No cardiac thrills are palpable; S1 and S2; No gallop/S3, No gallop/S4, No diastolic murmur, No systolic murmur, No friction rub, No click, No other Gastrointestional: No tender, No soft, No round, No distended, No pulsatile mass, No organomegaly, No guarding, No rebound, No tenderness, No hernia, No mass, No audible bowel sounds, No abnormal bowel sounds, No abdominal bruits, No spleenomegaly, No other Extremities: No normal range of motion, No non-tender, No normal inspection, No pedal edema, No calf tenderness, No normal capillary refill, No pelvis stable , No calf tenderness, No inflammation, No pedal edema, No slow capillary refill , No swelling, No other, No abrasion, No clubbing, No cyanosis, No ecchymosis, No laceration, No no lower extremity edema bilateral, No significant edema, No tenderness, No wound Neurologic/Psychiatric: no motor/sensory deficits, alert, normal mood/affect, oriented x 3 Skin: No normal color, No warm/dry, No cyanosis, No cool, No diaphoresis, No damp, No ecchymosis, No jaundice, No mottled, No pallor, No rash, No tattoos/ piercings, No ulcerations, No rash on exposed areas, No ulcerations on exposed areas, No other Results/Procedures: Labs Laboratory Tests 06/22/18 15:40: White Blood Count 10.5, Red Blood Count 4.61, Hemoglobin 14.0, Hematocrit 42, Mean Corpuscular Volume 91, Mean Corpuscular Hemoglobin 30, Mean Corpuscular Hemoglobin Concent 33, Red Cell Distribution Width 15.5H, Platelet Count 258, Mean Platelet Volume 10.4, Sodium Level 143, Potassium Level 4.0, Chloride Level 107, Carbon Dioxide Level 26, Anion Gap 10, Blood Urea Nitrogen 17, Creatinine 1.01, Estimat Glomerular Filtration Rate 55, BUN/Creatinine Ratio 17 , Glucose Level 118H, Calcium Level 10.0, Total Bilirubin 1.6H, Aspartate Amino Transf (AST/SGOT) 36H, Alanine Aminotransferase (ALT/SGPT) 36, Alkaline Phosphatase 93, Troponin I < 0.30, B-Type Natriuretic Peptide 1500.2H, Total Protein 7.5, Albumin 4.5 06/22/18 15:45: Blood Gas Puncture Site RIGHT RADIAL, Blood Gas Patient Temperature 96.2, Arterial Blood pH 7.39, Arterial Blood Partial Pressure CO2 42, Arterial Blood Partial Pressure O2 91, Arterial Blood HCO3 25, Arterial Blood Total CO2 26.7, Arterial Blood Oxygen Saturation 99, Arterial Blood Base Excess 0.7, Bill Test POSITIVE, Blood Gas Ventilator Setting NO, Blood Gas Inspired Oxygen 4L 06/22/18 19:08: Troponin I < 0.30, D-Dimer 2.75H 06/23/18 06:05: White Blood Count 6.6, Red Blood Count 4.30L, Hemoglobin 12.6, Hematocrit 39, Mean Corpuscular Volume 90, Mean Corpuscular Hemoglobin 29, Mean Corpuscular Hemoglobin Concent 33, Red Cell Distribution Width 15.3H, Platelet Count 214, Mean Platelet Volume 10.2, Sodium Level 143, Potassium Level 3.1L, Chloride Level 97L, Carbon Dioxide Level 34H, Anion Gap 12, Blood Urea Nitrogen 15, Creatinine 1.00, Estimat Glomerular Filtration Rate 55, BUN/Creatinine Ratio 15 , Glucose Level 93, Calcium Level 9.7, Total Bilirubin 2.6H, Aspartate Amino Transf (AST/SGOT) 30, Alanine Aminotransferase (ALT/SGPT) 28, Alkaline Phosphatase 83, Total Protein 6.5, Albumin 4.0, Neutrophils (%) (Auto) 68, Lymphocytes (%) (Auto) 19, Monocytes (%) (Auto) 10, Eosinophils (%) (Auto) 4, Basophils (%) (Auto) 1, Neutrophils # (Auto) 4.4, Lymphocytes # (Auto) 1.2, Monocytes # (Auto) 0.6, Eosinophils # (Auto) 0.3, Basophils # (Auto) 0.0 A/P: Assessment/Dx: Severe respiratory distress, Acute diastolic heart failure. Chest discomfort, Atrial fibrillation with rapid ventricular rate, Recent pneumonia, Hypertension Plan: Improved respiratory status. She was started on BiPAP. On Lasix. Chest CT angios was negative for PE. Acute diastolic heart failure improved significantly with Lasix. Coronary angiography showed patent epicardial coronary vessels. LVEDP 12 mmHg which is normal. Bedside echocardiogram was done which showed normal LV function with moderate concentric LVH. Right atrial enlargement. No significant valvular heart disease. Dilated IVC suggesting increased right atrial pressure. Mild pulmonary hypertension. Chest discomfort, no chest discomfort on my examination. Nuclear stress testing had shown reversible apical ischemia. Coronary angiography shows no CAD. Atrial fibrillation with rapid ventricular rate, Cardizem by mouth 60 mg. Cardizem infusion will be started. Eliquis. Recent pneumonia, Hypertension Thank you for your consultation. Please call me if you have any questions. Lorene Turner MD, FACP, FACC, FSCAI, FHRS, CCDS Interventional Cardiology Cardiac Electrophysiology Vascular Medicine and Endovascular Interventions Iris TURNER MD Jun 23, 2018 3:08 pm
[2018-06-23] MEDS ORDERED: PATIENT MAY USE OWN MEDS, ALL PO SCH (15:15)
[2018-06-23] MEDS ORDERED: NITRO DRIP 25000 MCG/D5W 250 ML IV ONE (15:16)
--- NOTE | 2018-06-23 15:16 | Coronary Angiography Report ---
Coronary Angiography Report DATE OF PROCEDURE: 06/23/18 INDICATION: Atrial fibrillation, abnormal nuclear stress test, recurrent chest pain. PREOPERATIVE DIAGNOSIS: Atrial fibrillation, abnormal nuclear stress test, recurrent chest pain. POSTOPERATIVE DIAGNOSIS: Patent epicardial coronary arteries. HISTORY: This is a 68-year-old lady with history of chest pain with abnormal nuclear stress test. Atrial fibrillation with rapid ventricular rate controlled with Cardizem. Presented with chest pain and shortness of breath. Severe respiratory distress yesterday responded to IV Lasix. Therefore, the patient was scheduled for coronary angiography. PROCEDURES PERFORMED: 1.Coronary angiography. 2.Left heart catheterization. 3. Aortic arch angiography. COMPLICATIONS: None. SPECIMENS: None. ESTIMATED BLOOD LOSS: 10 mL ANESTHESIA: Conscious sedation ANTICOAGULATION: None. CONTRAST: 77 mL. FLUOROSCOPY: 2.39 minutes. FLOUROSCOPY DOSE: 467 MGY. PROCEDURE DETAILS: The patient is a 68 female and was brought to the labor specialist after informed consent was taken. All the risks and complications were explained in detail; this included the risk of bleeding, vascular damage, stroke , VT and even . The patient was draped and prepped in the usual sterile fashion. Access was gained in the right femoral artery with a 5 Romansh sheath. Coronary angiography was performed with a JR4 and JL4 catheter. Left heart catheterization and aortic arch angiogram was performed with a JR4 catheter. FINDINGS: 1.Left main: Patent. 2.LAD: Patent. 3.Left circumflex artery: Patent. 4.RCA: Patent. 5.Left heart catheterization: Aortic pressure 195/95 mmHg. LV pressure 176/12 mmHg. LVEDP 12 mmHg. Normal LV function with no wall motion abnormalities. No gradient across the aortic valve. 6. Aortic arch angiogram: No evidence of dissection or aneurysm. Patent proximal segment of great arteries including brachycephalic artery, common carotid artery, subclavian artery. CONCLUSIONS: 1. Atrial fibrillation, hypertension, patent epicardial coronary arteries. Normal LVEDP. Lorene Turner MD, FACP, FACC, [facility] Interventional Cardiology Iris TURNER MD Jun 23, 2018 3:16 pm
[2018-06-23] MEDS ORDERED: meTOprolol 5 MG/5 ML (LOPRESSOR) VIAL ONE (15:18)
[2018-06-23] MEDS ORDERED: LABETALOL HCL 20 MG/4 ML VIAL ONE (15:24)
[2018-06-23] MEDS: DILTIAZEM 125 MG/D5W 100 ML DRIP IV SCH ×2 (16:30)
--- NOTE | 2018-06-23 16:44 | Diagnostic Imaging Report ---
INDICATION: Transient ischemic attacks. TECHNIQUE: Carotid Doppler study performed in the routine fashion with color flow Doppler and waveform analysis. FINDINGS: There is no significant plaquing or stenosis visualized on either side. Velocities and ratios are within normal range with ICA/CCA systolic velocity ratio of 1.1 on the right side and 0.95 on the left side. Both vertebrals show antegrade flow. Parameters based on the consensus panel Frye-Scale and Doppler ultrasound criteria published September 2003, Radiology, Volume 229. DOPPLER (peak systolic velocity M/S Right Left CCA 0.7 0.7 ICA Proximal 0.8 0.4 ICA Mid 0.6 0.5 ICA Distal 0.6 0.7 RATIO 1.1 0.95 ECA 0.6 0.8 VERT 0.5 0.4 IMPRESSION: Unremarkable carotid Doppler study. Dictated by: Dictated on workstation # [id number]
[2018-06-23] MEDS: NS IV 1000 ML 1,000 ML IV SCH (17:29)
[2018-06-23] MEDS ORDERED: amLODIPine 10 MG (NORVASC) TAB PO NR (17:30)
[2018-06-24] VITALS (16 sets, daily range): BP systolic 137–178; BP diastolic 62–108
[2018-06-24] MEDS: RT-ALBUTEROL/IPRATROPIUM 3 ML (DUONEB) VIAL INH SCH ×2 (01:16→09:10)
[2018-06-24] MEDS: NS IV 1000 ML 1,000 ML IV SCH ×2 (01:20→03:11)
[2018-06-24] MEDS: CATHETER FLUSH 10 ML SYR IV SCH (03:21)
[2018-06-24 03:53] LABS: CALCIUM 9.2 MG/DL (8.5-10.1); CREATININE SERUM 0.96 MG/DL (0.60-1.30); MAGNESIUM 1.5 MG/DL (1.8-2.4); POTASSIUM 3.4 MMOL/L (3.6-5.0)
[2018-06-24] MEDS: POTASSIUM CL 10MEQ/50ML IVPB 50 ML IV SCH (04:01)
[2018-06-24] MEDS: KCL 20 MEQ TAB (K-DUR) PO SCH (04:01)
[2018-06-24] MEDS: MAGNESIUM 1 GM/100 ML IVPB 100 ML IV SCH ×3 (04:01→05:31)
[2018-06-24] MEDS: meTOprolol 5 MG/5 ML (LOPRESSOR) VIAL IV PRN (06:40)
[2018-06-24 07:40] LABS: BASOPHILS % (AUTO) 1 % (0-10); EOSINOPHILS # (AUTO) 0.4 10^3/uL (0.0-0.3); EOSINOPHILS % (AUTO) 5 % (0-10); HEMATOCRIT 38 % (35-52); HEMOGLOBIN 12.8 G/DL (11.5-16.0); LYMPHOCYTES # (AUTO) 1.3 X 10^3 (1.0-4.0); LYMPHOCYTES % (AUTO) 18 % (12-44); MEAN CORPUSCULAR HEMOGLOBIN 31 PG (25-34); MEAN CORPUSCULAR HGB CONC 33 G/DL (32-36); MEAN CORPUSCULAR VOLUME 92 FL (80-99); MEAN PLATELET VOLUME 10.6 FL (7.4-10.4); MONOCYTES # (AUTO) 0.8 X 10^3 (0.0-1.0); MONOCYTES % (AUTO) 11 % (0-12); NEUTROPHILS # (AUTO) 4.7 X 10^3 (1.8-7.8); NEUTROPHILS % (AUTO) 66 % (42-75); PLATELET COUNT 226 10^3/uL (130-400); RED BLOOD COUNT 4.18 10^6/uL (4.35-5.85); RED CELL DISTRIBUTION WIDTH 15.3 % (10.0-14.5); WHITE BLOOD COUNT 7.2 10^3/uL (4.3-11.0)
[2018-06-24] MEDS: meTOprolol TARTRATE 25 MG (LOPRESSOR) TABLET PO SCH (08:08)
[2018-06-24] MEDS: DILTIAZEM 60 MG (CARDIZEM) TAB PO SCH ×2 (08:08→12:30)
[2018-06-24] MEDS: ASPIRIN E.C. 81 MG (ECOTRIN) TAB PO SCH (08:09)
[2018-06-24] MEDS: APIXABAN 5 MG (ELIQUIS) TABLET PO SCH (08:09)
[2018-06-24] MEDS ORDERED: amLODIPine 5 MG (NORVASC) TAB PO SCH (09:00)
[2018-06-24] MEDS ORDERED: KCL 20 MEQ TAB (K-DUR) PO ONE (09:00)
--- NOTE | 2018-06-24 09:36 | Diagnostic Imaging Report ---
EXAM: CHEST 1 VIEW, AP/PA ONLY INDICATION: Congestive heart failure. COMPARISON: Chest radiograph 06/22/2018. FINDINGS: Cardiomegaly. Mild prominence of the central pulmonary vascularity. This is overall improved compared to the prior exam. No new dense consolidation, pleural effusion or pneumothorax. No acute osseous findings. IMPRESSION: Cardiomegaly with improving pulmonary venous congestion. Dictated by: Dictated on workstation # [id number]
[2018-06-24] MEDS ORDERED: POTA10TA36 PO (12:20)
[2018-06-24] MEDS ORDERED: DILT120C82 PO (12:20)
[2018-06-24] MEDS ORDERED: FURO-124 PO (12:20)
[2018-06-24] MEDS ORDERED: CARV6.25 PO (12:20)
[2018-06-24] MEDS ORDERED: AMLO5TAB2 PO (12:20)
[2018-06-24] MEDS ORDERED: APIX5TAB PO (12:20)
--- NOTE | 2018-06-24 12:22 | Discharge Summary-Hospitalist ---
Diagnosis/Chief Complaint Date of Admission Jun 22, 2018 at 12:10 Date of Discharge Discharge Date: Jun 24, 2018 Discharge Diagnosis (1) Atrial fibrillation Status: Acute (2) Hypoxia Status: Acute Assessment & Plan: O2 evaluation and likely will Rx home O2 at DC (3) Weakness Status: Acute Assessment & Plan: Appears to be the last 6 months since bronchitis and diverticulitis episode (4) Sleep apnea Status: Chronic Assessment & Plan: Maintain on CPAP (5) Obesity Status: Chronic (6) Debility Status: Chronic (7) Hypertension, malignant Status: Chronic Assessment & Plan: Multiple med changes per Cardiology (8) H/O viral meningitis Status: Chronic (9) Headache, chronic daily Status: Chronic (10) Anticoagulant prescribed at discharge Status: Acute Assessment & Plan: Gave coupon for initiation of Eliquis Discharge Summary Discharge Physical Exam Allergies: Coded Allergies: No Known Drug Allergies (Unverified , 04/19/11) Vitals & I&Os Vital Signs Date Time Temp Pulse Resp B/P (MAP) Pulse Ox O2 Delivery O2 Flow Rate FiO2 06/24/18 12:00 92 Room Air 06/24/18 11:11 2.00 06/24/18 11:00 97.6 63 157/80 (105) 06/24/18 10:00 15 06/23/18 16:00 40 General Appearance: Alert, Oriented X3, Cooperative, Other (weakened) Respiratory: Clear to Auscultation, Normal Air Movement Cardiovascular: Other (Irr Irr) Neuro: Normal Gait, Normal Speech, Strength at 5/5 X4 Ext Psych/Mental Status: Mental Status NL, Mood NL Hospital Course Hospital course: Patient was admitted for chest pain noted new onset atrial fibrillation with rapid ventricular response so cardiology manage that with medical treatment. She is placed on anticoagulation for stroke prophylaxis. She underwent cardiac catheterization for risk stratification which revealed no significant CAD. Home O2 evaluation is initiated at time of discharge cardiology and patient were all in agreement for discharge home. She will have close follow-up due to multiple blood pressure medication changes along with initiation of anticoagulation and coupon was given at time of discharge to help with the cost of that new medication. Labs (last 24 hrs) Laboratory Tests 06/24/18 03:05: White Blood Count 7.2, Red Blood Count 4.18L, Hemoglobin 12.8, Hematocrit 38, Mean Corpuscular Volume 92, Mean Corpuscular Hemoglobin 31, Mean Corpuscular Hemoglobin Concent 33, Red Cell Distribution Width 15.3H, Platelet Count 226, Mean Platelet Volume 10.6H, Neutrophils (%) (Auto) 66, Lymphocytes (%) (Auto) 18 , Monocytes (%) (Auto) 11, Eosinophils (%) (Auto) 5, Basophils (%) (Auto) 1, Neutrophils # (Auto) 4.7, Lymphocytes # (Auto) 1.3, Monocytes # (Auto) 0.8, Eosinophils # (Auto) 0.4H, Basophils # (Auto) 0.0, Sodium Level 143, Potassium Level 3.4L, Chloride Level 101, Carbon Dioxide Level 29, Anion Gap 13, Blood Urea Nitrogen 16, Creatinine 0.96, Estimat Glomerular Filtration Rate 58, BUN/ Creatinine Ratio 17, Glucose Level 98, Calcium Level 9.2, Magnesium Level 1.5L Patient resulted labs reviewed. Discussion & Recommendations Discharge Planning: <30 minutes discharge planning Discharge Home Medications: Active Scripts Active Potassium Chloride 10 Meq Tab.er.prt 10 Meq PO DAILY Lasix (Furosemide) 40 Mg Tablet 40 Mg PO DAILY Coreg (Carvedilol) 6.25 Mg Tablet 6.25 Mg PO BID Cardizem Cd (Diltiazem HCl) 120 Mg Cap.er.24h 120 Mg PO BID Amlodipine Besylate 5 Mg Tablet 10 Mg PO DAILY Eliquis (Apixaban) 5 Mg Tablet 5 Mg PO BID Reported Aspirin EC (Aspirin) 81 Mg Tablet.dr 81 Mg PO DAILY Valsartan 320 Mg Tablet 320 Mg PO DAILY Clonidine HCl 0.2 Mg Tablet 0.2 Mg PO HS Metoprolol Succinate 100 Mg Tab.er.24h 100 Mg PO HS Instructions to patient/family Please see electronic discharge instructions given to patient. Clinical Quality Measures DVT/VTE Risk/Contraindication: Risk Factor Score Per Nursin RFS Level Per Nursing on Admit: 4+=Very High Problem Qualifiers (1) Atrial fibrillation: Atrial fibrillation type: chronic Qualified Codes: I48.2 - Chronic atrial fibrillation (2) Sleep apnea: Sleep apnea type: unspecified type Qualified Codes: G47.30 - Sleep apnea, unspecified (3) Obesity: Obesity type: due to excess calories Obesity classification: adult class 2 ( BMI 35 - 39.9) Serious obesity comorbidity presence: with serious comorbidity ISAIAH ESCALONA DO Jun 24, 2018 12:22
--- NOTE | 2018-06-24 15:13 | Cardiology Progress Note ---
Cardiology SOAP Progress Note Subjective: Improved shortness of breath. Objective: I&O/Vital Signs 06/24/18 06/24/18 06/24/18 06/24/18 04:00 04:00 05:00 06:00 Pulse 68 61 63 B/P (MAP) 137/108 (118) 165/97 (119) 168/106 (126) Pulse Ox 95 94 95 O2 Delivery NIV CPAP NIV CPAP NIV CPAP NIV CPAP O2 Flow Rate 4.00 3.00 3.00 3.00 06/24/18 06/24/18 06/24/18 06/24/18 06:29 07:00 07:00 08:00 Pulse 73 55 62 B/P (MAP) 167/107 (127) 164/89 (114) Pulse Ox 97 96 O2 Delivery NIV CPAP NIV CPAP Nasal Cannula O2 Flow Rate 3.00 3.00 4.00 06/24/18 06/24/18 06/24/18 06/24/18 08:00 08:00 09:00 09:12 Temp 97.7 Pulse 76 68 Resp 16 20 B/P (MAP) 172/105 (127) 177/94 (121) Pulse Ox 95 96 92 O2 Delivery NIV CPAP NIV CPAP Nasal Cannula High Flow N/C O2 Flow Rate 4.00 4.00 4.00 4.00 06/24/18 06/24/18 06/24/18 06/24/18 10:00 11:00 11:11 12:00 Temp 97.6 Pulse 65 63 Resp 15 B/P (MAP) 154/90 (111) 157/80 (105) Pulse Ox 96 98 92 O2 Delivery Nasal Cannula Nasal Cannula NIV CPAP Room Air O2 Flow Rate 4.00 2.00 2.00 06/24/18 06/24/18 06/24/18 06/24/18 12:00 12:45 13:00 13:00 Pulse 59 67 59 Resp 28 11 B/P (MAP) 143/64 (90) Pulse Ox 96 95 96 O2 Delivery Nasal Cannula Nasal Cannula O2 Flow Rate 2.00 2.00 2.00 06/24/18 06/24/18 14:00 15:01 Pulse 54 61 Resp 18 12 B/P (MAP) 152/62 (92) 143/86 (105) Pulse Ox 98 98 O2 Delivery Nasal Cannula Room Air O2 Flow Rate 2.00 06/24/18 00:00 Intake Total 300 ml Output Total 1250 ml Balance -950 ml Weight (Pounds): 230 Weight (Ounces): 6.0 Weight (Calculated Kilograms): [id number] Constitutional: AAO x 3, apparent distress Respiratory: chest is bilaterally symmetric, lungs clear to auscultation Cardiovascular: No regular rate-rhythm; irregularly irregular; No extra beats, No parasternal heave is noted, No JVD, No edema, No bradycardia; tachycardia; No point of maximal impulse, No cardiac thrills are palpable; S1 and S2; No gallop/S3, No gallop/S4, No diastolic murmur, No systolic murmur, No friction rub, No click, No other Gastrointestional: No tender, No soft, No round, No distended, No pulsatile mass, No organomegaly, No guarding, No rebound, No tenderness, No hernia, No mass, No audible bowel sounds, No abnormal bowel sounds, No abdominal bruits, No spleenomegaly, No other Extremities: No normal range of motion, No non-tender, No normal inspection, No pedal edema, No calf tenderness, No normal capillary refill, No pelvis stable , No calf tenderness, No inflammation, No pedal edema, No slow capillary refill , No swelling, No other, No abrasion, No clubbing, No cyanosis, No ecchymosis, No laceration, No no lower extremity edema bilateral, No significant edema, No tenderness, No wound Neurologic/Psychiatric: no motor/sensory deficits, alert, normal mood/affect, oriented x 3 Skin: No normal color, No warm/dry, No cyanosis, No cool, No diaphoresis, No damp, No ecchymosis, No jaundice, No mottled, No pallor, No rash, No tattoos/ piercings, No ulcerations, No rash on exposed areas, No ulcerations on exposed areas, No other Results/Procedures: Labs Laboratory Tests 06/24/18 03:05: White Blood Count 7.2, Red Blood Count 4.18L, Hemoglobin 12.8, Hematocrit 38, Mean Corpuscular Volume 92, Mean Corpuscular Hemoglobin 31, Mean Corpuscular Hemoglobin Concent 33, Red Cell Distribution Width 15.3H, Platelet Count 226, Mean Platelet Volume 10.6H, Neutrophils (%) (Auto) 66, Lymphocytes (%) (Auto) 18 , Monocytes (%) (Auto) 11, Eosinophils (%) (Auto) 5, Basophils (%) (Auto) 1, Neutrophils # (Auto) 4.7, Lymphocytes # (Auto) 1.3, Monocytes # (Auto) 0.8, Eosinophils # (Auto) 0.4H, Basophils # (Auto) 0.0, Sodium Level 143, Potassium Level 3.4L, Chloride Level 101, Carbon Dioxide Level 29, Anion Gap 13, Blood Urea Nitrogen 16, Creatinine 0.96, Estimat Glomerular Filtration Rate 58, BUN/ Creatinine Ratio 17, Glucose Level 98, Calcium Level 9.2, Magnesium Level 1.5L A/P: Assessment/Dx: Severe respiratory distress, Acute diastolic heart failure. Chest discomfort, Atrial fibrillation with rapid ventricular rate, rate controlled now. Recent pneumonia, Hypertension Plan: Improved respiratory status. Acute diastolic heart failure improved significantly with Lasix. Coronary angiography showed patent epicardial coronary vessels. LVEDP 12 mmHg which is normal. Bedside echocardiogram was done which showed normal LV function with moderate concentric LVH. Right atrial enlargement. No significant valvular heart disease. Dilated IVC suggesting increased right atrial pressure. Mild pulmonary hypertension. Chest discomfort, no chest discomfort on my examination. Nuclear stress testing had shown reversible apical ischemia. Coronary angiography shows no CAD. Atrial fibrillation with rapid ventricular rate, rate much better now. Start Cardizem long-acting. Continue Eliquis. Okay to discharge to follow-up as an outpatient and will likely require ARNAUD cardioversion. Recent pneumonia, Hypertension, amlodipine, lisinopril. Thank you for your consultation. Please call me if you have any questions. Lorene Turner MD, FACP, FACC, FSCAI, FHRS, CCDS Interventional Cardiology Cardiac Electrophysiology Vascular Medicine and Endovascular Interventions Iris TURNER MD Jun 24, 2018 15:13
--- OUTSIDE RECORDS SUMMARY | 2018-07-01 10:00 | XMS REPORT | Continuity of Care Document ---
Author Author [facility] Organization [facility] Address Unknown Phone Unavailable Allergies Active Description Code Type Severity Reaction Onset Reported/Identified Relationship to Patient Clinical Status Yes No Known Drug Allergies [id number] Drug Allergy Unknown N/A 04/19/2011 Medications There is no data. Problems Date Dx Coded Attending Type Code Diagnosis Diagnosed By 10/27/1422 PRIYANKA ALTHAM DO Ot M17.12 UNILATERAL PRIMARY OSTEOARTHRITIS, LEFT 04/19/2011 Ot 562.10 04/19/2011 Ot 787.3 04/19/2011 Ot 787.99 02/20/2015 Ot V76.12 06/03/2015 [facility] Ot 427.9 06/19/2015 UNIQUE FRYE DO S Ot 327.23 OBSTRUCTIVE SLEEP APNEA (ADULT) (PEDIATR 06/19/2015 KARRI FRYE DOLINE S Ot 427.2 PAROX TACHYCARDIA NOS 07/07/2015 MAYI FARMER, UNIQUE S Ot 327.23 OBSTRUCTIVE SLEEP APNEA (ADULT) (PEDIATR 07/17/2015 [facility] Ot 789.06 07/25/2015 [facility] Ot 573.8 07/25/2015 [facility] Ot 789.06 10/30/2015 UNIQUE FRYE DO S Ot R41.3 10/30/2015 IRVING FRYE DOQUELINE S Ot R51 11/13/2015 IRVING FRYE DOQUELINE S Ot R41.3 11/13/2015 IRVING FRYE DOQUELINE S Ot R51 02/18/2016 Ot 793.81 02/18/2016 Ot V67.9 02/18/2016 Ot 610.8 02/18/2016 Ot V15.89 02/18/2016 Ot V76.11 02/18/2016 Ot 454.8 02/18/2016 Ot 787.02 02/18/2016 Ot 789.00 02/18/2016 Ot 789.00 02/18/2016 Ot V76.12 02/18/2016 NEETA, MART R DRESSAGE JUDGE Ot 553.3 02/18/2016 NEETA, MART R DRESSAGE JUDGE Ot 562.10 02/18/2016 NEETA, MART R DRESSAGE JUDGE Ot 789.00 02/18/2016 NEETA, MART R DRESSAGE JUDGE Ot 789.00 02/18/2016 ART SANTACRUZINA R DRESSAGE JUDGE Ot 625.8 02/18/2016 ORENDER DO, UNIQUE S Ot V76.12 02/18/2016 Ot V76.12 02/18/2016 VANBECELAERE, JAKE M [facility] SOC[facility] WORKER Ot 427.9 02/18/2016 VANBECELAERE, JAKE M [facility] WORKER Ot 789.06 02/18/2016 VANBECELAERE, JAKE M [facility] WORKER Ot 573.8 02/18/2016 VANBECELAERE, JAKE M [facility] WORKER Ot 789.06 02/18/2016 FERNNDER DO, UNIQUE S Ot R41.3 02/18/2016 [facility] Ot R51 02/19/2016 SHIVANI CHAVARRIA DRESSAGE JUDGE Ot Z12.31 03/03/2016 SHIVANI CHAVARRIA DRESSAGE JUDGE Ot Z12.31 03/17/2016 SHIVANI CHAVARRIA DRESSAGE JUDGE Ot R10.84 GENERALIZED ABDOMINAL PAIN 05/24/2016 ORENDER DO, UNIQUE S Ot E86.0 DEHYDRATION 05/24/2016 ORENDER DO, UNIQUE S Ot R11.0 NAUSEA 05/24/2016 ORENDER DO, UNIQUE S Ot R51 HEADACHE 05/25/2016 ORENDER DO, UNIQUE S Ot E86.0 DEHYDRATION 05/25/2016 ORENDER DO, UNIQUE S Ot R11.0 NAUSEA 05/25/2016 ORENDER DO, UNIQUE S Ot R51 HEADACHE 06/03/2016 ORENDER DO, UNIQUE S Ot E86.0 DEHYDRATION 06/03/2016 ORENDER DO, UNIQUE S Ot R11.0 NAUSEA 06/03/2016 ORENDER DO, UNIQUE S Ot R51 HEADACHE 02/21/2017 Ot V15.89 HX-HEALTH HAZARDS NEC 02/21/2017 Ot V76.11 SCRN MAMMO- HIGH RISK PT, MALIGNANT NEOPL 02/21/2017 Ot 454.8 VARICOSE VEINS LOWER EXTREM W OTHER COMP 02/21/2017 Ot 787.02 NAUSEA ALONE 02/21/2017 Ot 789.00 ABDOMINAL PAIN, UNSPECIFIED SITE 02/21/2017 Ot 789.00 ABDOMINAL PAIN, UNSPECIFIED SITE 02/21/2017 Ot V76.12 OTH SCREEN MAMMO-MALIGN NEOPLASM OF SHAUN 02/21/2017 MART SANTACRUZ DRESSAGE JUDGE Ot 553.3 DIAPHRAGMATIC HERNIA 02/21/2017 MART SANTACRUZ R DRESSAGE JUDGE Ot 562.10 DIVERTICULOSIS COLON (W/O MENT OF HEMORR 02/21/2017 MART SANTACRUZ DRESSAGE JUDGE Ot 789.00 ABDOMINAL PAIN, UNSPECIFIED SITE 02/21/2017 MART SANTACRUZ DRESSAGE JUDGE Ot 789.00 ABDOMINAL PAIN, UNSPECIFIED SITE 02/21/2017 MART SANTACRUZ DRESSAGE JUDGE Ot 625.8 FEM GENITAL SYMPTOMS NEC 02/21/2017 UNIQUE FRYE DO S Ot V76.12 OTH SCREEN MAMMO-MALIGN NEOPLASM OF SHAUN 02/21/2017 Ot V76.12 OTH SCREEN MAMMO-MALIGN NEOPLASM OF SHAUN 02/21/2017 VANJAKE EPSTEIN M [facility] SOCIAL WORKER Ot 427.9 CARDIAC DYSRHYTHMIA NOS 02/21/2017 [facility] M [facility] WORK[facility] Ot 789.06 ABDOMINAL PAIN, EPIGASTRIC 02/21/2017 [facility] M [facility] WORK[facility] Ot 573.8 LIVER DISORDERS NEC 02/21/2017 [facility] M [facility] WORKER Ot 789.06 ABDOMINAL PAIN, EPIGASTRIC 02/21/2017 KARRI FRYE DOLINE S Ot R41.3 OTHER AMNESIA 02/21/2017 KARRI FRYE DOLINE S Ot R51 HEADACHE 02/21/2017 SHIVANI CHAVARRIA DRESSAGE JUDGE Ot Z12.31 ENCNTR SCREEN MAMMOGRAM FOR MALIGNANT NE 02/21/2017 SHIVANI CHAVARRIA DRESSAGE JUDGE Ot R10.84 GENERALIZED ABDOMINAL PAIN 02/21/2017 UNIQUE FRYE DO S Ot E86.0 DEHYDRATION 02/21/2017 UNIQUE FRYE DO S Ot R11.0 NAUSEA 02/21/2017 KARRI FRYE DOLINE S Ot R51 HEADACHE 02/22/2017 MAYI FARMER UNIQUE S Ot Z12.31 ENCNTR SCREEN MAMMOGRAM FOR MALIGNANT NE 03/03/2017 FERNRAMONMICHELLE DO UNIQUE S Ot Z12.31 ENCNTR SCREEN MAMMOGRAM FOR MALIGNANT NE 09/05/2017 Ot 454.8 VARICOSE VEINS LOWER EXTREM W OTHER COMP 09/05/2017 Ot 787.02 NAUSEA ALONE 09/05/2017 Ot 789.00 ABDOMINAL PAIN, UNSPECIFIED SITE 09/05/2017 Ot 789.00 ABDOMINAL PAIN, UNSPECIFIED SITE 09/05/2017 Ot V76.12 OTH SCREEN MAMMO-MALIGN NEOPLASM OF SHAUN 09/05/2017 MART SANTACRUZ DRESSAGE JUDGE Ot 553.3 DIAPHRAGMATIC HERNIA 09/05/2017 MART SANTACRUZ DRESSAGE JUDGE Ot 562.10 DIVERTICULOSIS COLON (W/O MENT OF HEMORR 09/05/2017 MART SANTACRUZ DRESSAGE JUDGE Ot 789.00 ABDOMINAL PAIN, UNSPECIFIED SITE 09/05/2017 MART SANTACRUZ DRESSAGE JUDGE Ot 789.00 ABDOMINAL PAIN, UNSPECIFIED SITE 09/05/2017 MART SANTACRUZ DRESSAGE JUDGE Ot 625.8 FEM GENITAL SYMPTOMS NEC 09/05/2017 MAYI FARMER UNIQUE S Ot V76.12 OTH SCREEN MAMMO-MALIGN NEOPLASM OF SHAUN 09/05/2017 Ot V76.12 OTH SCREEN MAMMO-MALIGN NEOPLASM OF SHAUN 09/05/2017 [facility] Ot 427.9 CARDIAC DYSRHYTHMIA NOS 09/05/2017 XAVIER, JAKE M [facility] SOC[facility] WORKER Ot 789.06 ABDOMINAL PAIN, EPIGASTRIC 09/05/2017 VANLUCIAN, JAKE M [facility] WORKER Ot 573.8 LIVER DISORDERS NEC 09/05/2017 VANHUBERTELAESUSIE, JAKE M [facility] WORKER Ot 789.06 ABDOMINAL PAIN, EPIGASTRIC 09/05/2017 UNIQUE FRYE DO S Ot R41.3 OTHER AMNESIA 09/05/2017 UNIQUE FRYE DO S Ot R51 HEADACHE 09/05/2017 SHIVANI CHAVARRIA DRESSAGE JUDGE Ot Z12.31 ENCNTR SCREEN MAMMOGRAM FOR MALIGNANT NE 09/05/2017 SHIVANI CHAVARRIA DRESSAGE JUDGE Ot R10.84 GENERALIZED ABDOMINAL PAIN 09/05/2017 IRVING FRYE DOQUELINE S Ot E86.0 DEHYDRATION 09/05/2017 ORENDER DO, UNIQUE S Ot R11.0 NAUSEA 09/05/2017 [facility] S Ot R51 HEADACHE 09/05/2017 ORENDER DO, UNIQUE S Ot Z12.31 ENCNTR SCREEN MAMMOGRAM FOR MALIGNANT NE 09/06/2017 OTHER, UNLISTED Ot M17.12 UNILATERAL PRIMARY OSTEOARTHRITIS, LEFT 09/11/2017 OTHER, UNLISTED Ot M17.12 UNILATERAL PRIMARY OSTEOARTHRITIS, LEFT 09/29/2017 OTHER, UNLISTED Ot M17.12 UNILATERAL PRIMARY OSTEOARTHRITIS, LEFT 10/06/2017 OTHER, UNLISTED Ot M17.12 UNILATERAL PRIMARY OSTEOARTHRITIS, LEFT 11/08/2017 BRAYAN, GOLDEN R DRESSAGE JUDGE Ot 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 11/08/2017 BRAYAN, GOLDEN R DRESSAGE JUDGE Ot M17.12 UNILATERAL PRIMARY OSTEOARTHRITIS, LEFT 11/08/2017 BRAYAN, GOLDEN R DRESSAGE JUDGE Ot M71.22 SYNOVIAL CYST OF POPLITEAL SPACE [GARCIA] 11/23/2017 BRAYAN, GOLDEN R DRESSAGE JUDGE Ot 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 11/23/2017 BRAYAN, GOLDEN R DRESSAGE JUDGE Ot M17.12 UNILATERAL PRIMARY OSTEOARTHRITIS, LEFT 11/23/2017 BRAYAN, GOLDEN R DRESSAGE JUDGE Ot M71.22 SYNOVIAL CYST OF POPLITEAL SPACE [GARCIA] 12/02/2017 BRAYAN, GOLDEN R DRESSAGE JUDGE Ot 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 12/02/2017 BRAYAN, GOLDEN R DRESSAGE JUDGE Ot M17.12 UNILATERAL PRIMARY OSTEOARTHRITIS, LEFT 12/02/2017 BRAYAN, GOLDEN R DRESSAGE JUDGE Ot M71.22 SYNOVIAL CYST OF POPLITEAL SPACE [GARCIA] 01/12/2018 YEISON DO, PRIYANKA Laura Ot M17.12 UNILATERAL PRIMARY OSTEOARTHRITIS, LEFT 02/23/2018 [facility], [facility]QUE S Ot Z12.31 ENCNTR SCREEN MAMMOGRAM FOR MALIGNANT NE 03/03/2018 ORENDER DO, UNIQUE S Ot Z12.31 ENCNTR SCREEN MAMMOGRAM FOR MALIGNANT NE 03/23/2018 OREND DO, UNIQUE S Ot Z12.31 ENCNTR SCREEN MAMMOGRAM FOR MALIGNANT NE 05/09/2018 ORENDER DO, UNIQUE S Ot I51.7 CARDIOMEGALY 05/09/2018 ORENDER DO, UNIQUE S Ot J18.9 PNEUMONIA, UNSPECIFIED ORGANISM 05/09/2018 ORENDER DO, UNIQUE S Ot I51.7 CARDIOMEGALY 05/09/2018 ORENDER DO, UNIQUE S Ot J18.9 PNEUMONIA, UNSPECIFIED ORGANISM 05/11/2018 BRAYAN, GOLDEN R DRESSAGE JUDGE Ot R06.00 DYSPNEA, UNSPECIFIED 05/11/2018 BRAYAN, GOLDEN R DRESSAGE JUDGE Ot R79.1 ABNORMAL COAGULATION PROFILE 06/01/2018 ORENDER DO, UNIQUE S Ot I51.7 CARDIOMEGALY 06/01/2018 ORENDER DO, UNIQUE S Ot J18.9 PNEUMONIA, UNSPECIFIED ORGANISM 06/01/2018 BRAYAN, GOLDEN R DRESSAGE JUDGE Ot R06.00 DYSPNEA, UNSPECIFIED 06/01/2018 BRAYAN, GOLDEN R DRESSAGE JUDGE Ot R79.1 ABNORMAL COAGULATION PROFILE 06/08/2018 ORENDER DO, UNIQUE S Ot I51.7 CARDIOMEGALY 06/08/2018 ORENDER DO, UNIQUE S Ot J18.9 PNEUMONIA, UNSPECIFIED ORGANISM 06/08/2018 BRAYAN, GOLDEN R DRESSAGE JUDGE Ot R06.00 DYSPNEA, UNSPECIFIED 06/08/2018 BRAYAN, GOLDEN R DRESSAGE JUDGE Ot R79.1 ABNORMAL COAGULATION PROFILE 06/14/2018 ORENDER DO, UNIQUE S Ot I51.7 CARDIOMEGALY 06/14/2018 ORENDER DO, UNIQUE S Ot R07.9 CHEST PAIN, UNSPECIFIED 06/16/2018 ORENDER DO, UNIQUE S Ot M54.2 CERVICALGIA 06/16/2018 ORENDER DO, UNIQUE S Ot R51 HEADACHE Procedures There is no data. Results Test Result Range Complete blood count (CBC) with automated white blood cell (WBC) differential - 05/08/18 11:55 Blood leukocytes automated count (number/volume) 13.2 10*3/uL 4.3-11.0 Blood erythrocytes automated count (number/volume) 4.26 10*6/uL 4.35-5.85 Venous blood hemoglobin measurement (mass/volume) 12.5 g/dL 11.5-16.0 Blood hematocrit (volume fraction) 39 % 35-52 Automated erythrocyte mean corpuscular volume 91 [foz_us] 80-99 Automated erythrocyte mean corpuscular hemoglobin (mass per erythrocyte) 29 pg 25-34 Automated erythrocyte mean corpuscular hemoglobin concentration measurement ( mass/volume) 32 g/dL 32-36 Automated erythrocyte distribution width ratio 14.9 % 10.0-14.5 Automated blood platelet count (count/volume) 268 10*3/uL 130-400 Automated blood platelet mean volume measurement 9.4 [foz_us] 7.4-10.4 Automated blood neutrophils/100 leukocytes 84 % 42-75 Automated blood lymphocytes/100 leukocytes 8 % 12-44 Blood monocytes/100 leukocytes 6 % 0-12 Automated blood eosinophils/100 leukocytes 1 % 0-10 Automated blood basophils/100 leukocytes 0 % 0-10 Blood neutrophils automated count (number/volume) 11.1 10*3 1.8-7.8 Blood lymphocytes automated count (number/volume) 1.1 10*3 1.0-4.0 Blood monocytes automated count (number/volume) 0.8 10*3 0.0-1.0 Automated eosinophil count 0.2 10*3/uL 0.0-0.3 Automated blood basophil count (count/volume) 0.0 10*3/uL 0.0-0.1 Erythrocyte sedimentation rate by westergren method - 05/08/18 11:55 Erythrocyte sedimentation rate by westergren method 17 mm 0-30 Whole blood basic metabolic panel - 05/08/18 11:55 Serum or plasma sodium measurement (moles/volume) 141 mmol/L 135-145 Serum or plasma potassium measurement (moles/volume) 3.8 mmol/L 3.6-5.0 Serum or plasma chloride measurement (moles/volume) 102 mmol/L 98-107 Carbon dioxide 27 mmol/L 21-32 Serum or plasma anion gap determination (moles/volume) 12 mmol/L 5-14 Serum or plasma urea nitrogen measurement (mass/volume) 19 mg/dL 7-18 Serum or plasma creatinine measurement (mass/volume) 1.04 mg/dL 0.60-1.30 Serum or plasma urea nitrogen/creatinine mass ratio 18 NRG Serum or plasma creatinine measurement with calculation of estimated glomerular filtration rate 53 NRG Serum or plasma glucose measurement (mass/volume) 80 mg/dL 70-105 Serum or plasma calcium measurement (mass/volume) 9.7 mg/dL 8.5-10.1 Complete blood count (CBC) with automated white blood cell (WBC) differential - 06/22/18 12:35 Blood leukocytes automated count (number/volume) 7.0 10*3/uL 4.3-11.0 Blood erythrocytes automated count (number/volume) 3.98 10*6/uL 4.35-5.85 Venous blood hemoglobin measurement (mass/volume) 12.0 g/dL 11.5-16.0 Blood hematocrit (volume fraction) 37 % 35-52 Automated erythrocyte mean corpuscular volume 92 [foz_us] 80-99 Automated erythrocyte mean corpuscular hemoglobin (mass per erythrocyte) 30 pg 25-34 Automated erythrocyte mean corpuscular hemoglobin concentration measurement ( mass/volume) 33 g/dL 32-36 Automated erythrocyte distribution width ratio 15.1 % 10.0-14.5 Automated blood platelet count (count/volume) 205 10*3/uL 130-400 Automated blood platelet mean volume measurement 9.6 [foz_us] 7.4-10.4 Automated blood neutrophils/100 leukocytes 79 % 42-75 Automated blood lymphocytes/100 leukocytes 11 % 12-44 Blood monocytes/100 leukocytes 7 % 0-12 Automated blood eosinophils/100 leukocytes 3 % 0-10 Automated blood basophils/100 leukocytes 0 % 0-10 Blood neutrophils automated count (number/volume) 5.5 10*3 1.8-7.8 Blood lymphocytes automated count (number/volume) 0.8 10*3 1.0-4.0 Blood monocytes automated count (number/volume) 0.5 10*3 0.0-1.0 Automated eosinophil count 0.2 10*3/uL 0.0-0.3 Automated blood basophil count (count/volume) 0.0 10*3/uL 0.0-0.1 Comprehensive metabolic panel - 06/22/18 12:35 Serum or plasma sodium measurement (moles/volume) 143 mmol/L 135-145 Serum or plasma potassium measurement (moles/volume) 4.3 mmol/L 3.6-5.0 Serum or plasma chloride measurement (moles/volume) 107 mmol/L 98-107 Carbon dioxide 28 mmol/L 21-32 Serum or plasma anion gap determination (moles/volume) 8 mmol/L 5-14 Serum or plasma urea nitrogen measurement (mass/volume) 18 mg/dL 7-18 Serum or plasma creatinine measurement (mass/volume) 1.08 mg/dL 0.60-1.30 Serum or plasma urea nitrogen/creatinine mass ratio 17 NRG Serum or plasma creatinine measurement with calculation of estimated glomerular filtration rate 51 NRG Serum or plasma glucose measurement (mass/volume) 112 mg/dL 70-105 Serum or plasma calcium measurement (mass/volume) 9.6 mg/dL 8.5-10.1 Serum or plasma total bilirubin measurement (mass/volume) 1.4 mg/dL 0.1-1.0 Serum or plasma alkaline phosphatase measurement (enzymatic activity/volume) 77 U/L 40-136 Serum or plasma aspartate aminotransferase measurement (enzymatic activity/ volume) 31 U/L 5-34 Serum or plasma alanine aminotransferase measurement (enzymatic activity/volume ) 30 U/L 0-55 Serum or plasma protein measurement (mass/volume) 6.5 g/dL 6.4-8.2 Serum or plasma albumin measurement (mass/volume) 4.0 g/dL 3.2-4.5 Serum or plasma troponin i.cardiac measurement (mass/volume) - 06/22/18 12:35 Serum or plasma troponin i.cardiac measurement (mass/volume) < ng/ mL <0.30 Automated blood complete blood count (hemogram) panel - 06/22/18 15:40 Blood leukocytes automated count (number/volume) 10.5 10*3/uL 4.3-11.0 Blood erythrocytes automated count (number/volume) 4.61 10*6/uL 4.35-5.85 Venous blood hemoglobin measurement (mass/volume) 14.0 g/dL 11.5-16.0 Blood hematocrit (volume fraction) 42 % 35-52 Automated erythrocyte mean corpuscular volume 91 [foz_us] 80-99 Automated erythrocyte mean corpuscular hemoglobin (mass per erythrocyte) 30 pg 25-34 Automated erythrocyte mean corpuscular hemoglobin concentration measurement ( mass/volume) 33 g/dL 32-36 Automated erythrocyte distribution width ratio 15.5 % 10.0-14.5 Automated blood platelet count (count/volume) 258 10*3/uL 130-400 Automated blood platelet mean volume measurement 10.4 [foz_us] 7.4-10.4 Comprehensive metabolic panel - 06/22/18 15:40 Serum or plasma sodium measurement (moles/volume) 143 mmol/L 135-145 Serum or plasma potassium measurement (moles/volume) 4.0 mmol/L 3.6-5.0 Serum or plasma chloride measurement (moles/volume) 107 mmol/L 98-107 Carbon dioxide 26 mmol/L 21-32 Serum or plasma anion gap determination (moles/volume) 10 mmol/L 5-14 Serum or plasma urea nitrogen measurement (mass/volume) 17 mg/dL 7-18 Serum or plasma creatinine measurement (mass/volume) 1.01 mg/dL 0.60-1.30 Serum or plasma urea nitrogen/creatinine mass ratio 17 NRG Serum or plasma creatinine measurement with calculation of estimated glomerular filtration rate 55 NRG Serum or plasma glucose measurement (mass/volume) 118 mg/dL 70-105 Serum or plasma calcium measurement (mass/volume) 10.0 mg/dL 8.5-10.1 Serum or plasma total bilirubin measurement (mass/volume) 1.6 mg/dL 0.1-1.0 Serum or plasma alkaline phosphatase measurement (enzymatic activity/volume) 93 U/L 40-136 Serum or plasma aspartate aminotransferase measurement (enzymatic activity/ volume) 36 U/L 5-34 Serum or plasma alanine aminotransferase measurement (enzymatic activity/volume ) 36 U/L 0-55 Serum or plasma protein measurement (mass/volume) 7.5 g/dL 6.4-8.2 Serum or plasma albumin measurement (mass/volume) 4.5 g/dL 3.2-4.5 Serum or plasma lithium measurement (moles/volume) - 06/22/18 15:40 BNP level 1500.2 pg/mL <100.0 Serum or plasma troponin i.cardiac measurement (mass/volume) - 06/22/18 15:40 Serum or plasma troponin i.cardiac measurement (mass/volume) < ng/ mL <0.30 Arterial blood gas measurement - 06/22/18 15:45 Blood pCO2 42 mm[Hg] 35-45 Blood pO2 91 mm[Hg] 79-93 Arterial blood bicarbonate measurement (moles/volume) 25 mmol/L 23-27 Arterial blood base excess by calculation 0.7 mmol/L -2.5 -2.5 Arterial blood oxygen saturation measurement 99 % 94-100 * Inhaled oxygen flow rate 4L NRG Arterial blood pH measurement with patient temperature correction 7.39 7.37-7.43 Arterial blood carbon dioxide, total measurement (moles/volume) 26.7 mmol/L 21.0-31.0 Body site RIGHT RADIAL NRG Assessment of wrist artery patency prior to arterial puncture POSITIVE NRG Setting of ventilation mode NO NRG Measurement of body temperature 96.2 NRG Fibrin D-dimer FEU measurement in platelet poor plasma (mass/volume) - 19:08 Fibrin D-dimer FEU measurement in platelet poor plasma (mass/volume) 2.75 ug/mL 0.00-0.49 Serum or plasma troponin i.cardiac measurement (mass/volume) - 06/22/18 19:08 Serum or plasma troponin i.cardiac measurement (mass/volume) < ng/ mL <0.30 Complete blood count (CBC) with automated white blood cell (WBC) differential - 06/23/18 06:05 Blood leukocytes automated count (number/volume) 6.6 10*3/uL 4.3-11.0 Blood erythrocytes automated count (number/volume) 4.30 10*6/uL 4.35-5.85 Venous blood hemoglobin measurement (mass/volume) 12.6 g/dL 11.5-16.0 Blood hematocrit (volume fraction) 39 % 35-52 Automated erythrocyte mean corpuscular volume 90 [foz_us] 80-99 Automated erythrocyte mean corpuscular hemoglobin (mass per erythrocyte) 29 pg 25-34 Automated erythrocyte mean corpuscular hemoglobin concentration measurement ( mass/volume) 33 g/dL 32-36 Automated erythrocyte distribution width ratio 15.3 % 10.0-14.5 Automated blood platelet count (count/volume) 214 10*3/uL 130-400 Automated blood platelet mean volume measurement 10.2 [foz_us] 7.4-10.4 Automated blood neutrophils/100 leukocytes 68 % 42-75 Automated blood lymphocytes/100 leukocytes 19 % 12-44 Blood monocytes/100 leukocytes 10 % 0-12 Automated blood eosinophils/100 leukocytes 4 % 0-10 Automated blood basophils/100 leukocytes 1 % 0-10 Blood neutrophils automated count (number/volume) 4.4 10*3 1.8-7.8 Blood lymphocytes automated count (number/volume) 1.2 10*3 1.0-4.0 Blood monocytes automated count (number/volume) 0.6 10*3 0.0-1.0 Automated eosinophil count 0.3 10*3/uL 0.0-0.3 Automated blood basophil count (count/volume) 0.0 10*3/uL 0.0-0.1 Comprehensive metabolic panel - 06/23/18 06:05 Serum or plasma sodium measurement (moles/volume) 143 mmol/L 135-145 Serum or plasma potassium measurement (moles/volume) 3.1 mmol/L 3.6-5.0 Serum or plasma chloride measurement (moles/volume) 97 mmol/L 98-107 Carbon dioxide 34 mmol/L 21-32 Serum or plasma anion gap determination (moles/volume) 12 mmol/L 5-14 Serum or plasma urea nitrogen measurement (mass/volume) 15 mg/dL 7-18 Serum or plasma creatinine measurement (mass/volume) 1.00 mg/dL 0.60-1.30 Serum or plasma urea nitrogen/creatinine mass ratio 15 NRG Serum or plasma creatinine measurement with calculation of estimated glomerular filtration rate 55 NRG Serum or plasma glucose measurement (mass/volume) 93 mg/dL 70-105 Serum or plasma calcium measurement (mass/volume) 9.7 mg/dL 8.5-10.1 Serum or plasma total bilirubin measurement (mass/volume) 2.6 mg/dL 0.1-1.0 Serum or plasma alkaline phosphatase measurement (enzymatic activity/volume) 83 U/L 40-136 Serum or plasma aspartate aminotransferase measurement (enzymatic activity/ volume) 30 U/L 5-34 Serum or plasma alanine aminotransferase measurement (enzymatic activity/volume ) 28 U/L 0-55 Serum or plasma protein measurement (mass/volume) 6.5 g/dL 6.4-8.2 Serum or plasma albumin measurement (mass/volume) 4.0 g/dL 3.2-4.5 Encounters ACCT No. Visit Date/Time Discharge Status Pt. Type Provider Facility Loc./Unit Complaint [id number] 07/07/2015 22:29:27 07/07/2015 23:59:59 [facility] Outpatient Shivani Chavarria [id number] 07/07/2015 22:18:40 07/07/2015 23:59:59 [facility] Outpatient Shivani Chavarria [id number] 07/07/2015 22:16:21 07/07/2015 23:59:59 [facility] Outpatient Shivani Chavarria [id number] 06/21/2018 10:29:00 06/21/2018 23:59:59 [facility] Outpatient FERNNDER DO, UNIQUE S [facility] REHAB CERVICALGIA WITH CEPHALGIA [id number] 06/13/2018 06:48:00 06/13/2018 23:59:59 CLS Outpatient ORENDER DO, UNIQUE S [facility] CARD CHEST PAIN [id number] 05/10/2018 13:40:00 05/10/2018 23:59:59 CLS Outpatient GOLDEN SCHMIDT DRESSAGE JUDGE [facility] RAD ASPNEA,ELEVATED,D- DIMER [id number] 05/08/2018 11:34:00 05/08/2018 23:59:59 CLS Outpatient FERNNDER DO UNIQUE S [facility] RAD PNEUMONIA [id number] 03/02/2018 09:27:00 03/02/2018 23:59:59 CLS Outpatient ORENDER DO, UNIQUE S [facility] RAD SCREENING [id number] 01/12/2018 12:53:00 01/12/2018 14:23:00 DIS Outpatient YEISON DOPRIYANKA [facility] REHAB PRIMARY OA L KNEE [id number] 11/02/2017 09:06:00 11/02/2017 23:59:59 CLS Outpatient GOLDEN SCHMIDT DRESSAGE JUDGE [facility] RAD LT KNEE PAIN [id number] 09/05/2017 14:14:00 09/05/2017 23:59:59 CLS Outpatient OTHER, UNLISTED [facility] RAD LT KNEE PAIN [id number] 02/21/2017 09:41:00 02/21/2017 23:59:59 CLS Outpatient ORENDER DO, UNIQUE S [facility] RAD SCREENING [id number] 05/21/2016 12:14:00 05/21/2016 23:59:59 CLS Outpatient MONAER DO, UNIQUE S [facility] LAB NAUSEA,COPHALGIA [id number] 03/03/2016 15:34:00 03/03/2016 23:59:59 CLS Outpatient DEON SHIVANI Leone DRESSAGE JUDGE [facility] RAD GENERAL ABDOMINAL PAIN [id number] 02/18/2016 08:16:00 02/18/2016 23:59:59 CLS Outpatient DEON SHIVANI Sulema DRESSAGE JUDGE [facility] RAD SCREENING [id number] 10/28/2015 14:21:00 10/28/2015 23:59:59 CLS Outpatient UNIQUE FRYE DO [facility] RAD MEMORY LOSS, CEPHALGIA [id number] 07/10/2015 09:20:00 07/10/2015 23:59:59 CLS Outpatient [facility] CARD EPIGASTRIC PAIN LIVER CYST [id number] 07/06/2015 19:55:00 07/07/2015 05:00:00 DIS Outpatient UNIQUE FRYE DO [facility] SLEEP OBSERVED APNEAS CESAR [id number] 07/02/2015 07:36:00 07/02/2015 23:59:59 CLS Outpatient [facility] RAD EPIGASTRIC PAIN [id number] 06/18/2015 20:53:00 06/19/2015 06:00:00 DIS Outpatient UNIQUE FRYE DO S [facility] SLEEP OBSERVED APNEAS SNORING HTN EXCESSIVE DAYTIME SLEE [id number] 05/13/2015 08:31:00 05/13/2015 23:59:59 CLS Outpatient [facility] CARD IRREGULAR HEARTBEAT [id number] 12/24/2013 07:09:00 12/24/2013 23:59:59 CLS Outpatient UNIQUE FRYE DO S [facility] RAD SCREENING [id number] 04/24/2013 15:26:00 04/24/2013 23:59:59 CLS Outpatient MART SANTACRUZ DRESSAGE JUDGE [facility] RAD ABDOMINAL CYST [id number] 04/19/2013 07:53:00 04/19/2013 23:59:59 CLS Outpatient ART SANTACRUZINA R DRESSAGE JUDGE [facility] RAD ABD PAIN [id number] 04/18/2013 09:05:00 04/18/2013 23:59:59 CLS Outpatient MART SANTACRUZ R DRESSAGE JUDGE [facility] LAB ABD PAIN [id number] 06/22/2018 12:05:00 ACT Inpatient UNIQUE FRYE DO [facility] ICU CHEST PAIN [id number] 02/04/2015 08:17:00 Document Registration [id number] 11/29/2012 10:21:00 Document Registration [id number] 05/08/2012 14:21:00 Document Registration [id number] 05/02/2012 08:32:00 Document Registration [id number] 04/14/2012 13:59:00 Document Registration [id number] 11/11/2011 09:51:00 Document Registration [id number] 04/19/2011 08:09:00 Document Registration [id number] 03/01/2011 08:01:00 Document Registration [id number] 02/23/2011 12:41:00 Document Registration 02/201706/22/2018 19:32:54 06/22/2018 23:59:59 CLS Outpatient Unique Frye
== END 2018-06-24 15:18 | disposition home or self-care (01) | DRG 308 ==
LOC: UNDOADMOB 12:05 → ICU 12:05 → INTOOBSV 12:05 → UNDOADMOB 12:10 → ICU 12:10 → OBSVTOIN 06-23 09:21 → UNDODISOB 06-24 15:18
PROVIDERS: ADMIT Family Medicine; ATTEND Family Medicine
DX: I48.2 Chronic atrial fibrillation (principal); J96.01 Acute respiratory failure with hypoxia; R07.89 Other chest pain; I10 Essential (primary) hypertension; I27.20 Pulmonary hypertension, unspecified; Z87.01 Personal history of pneumonia (recurrent); R41.3 Other amnesia; R53.1 Weakness; G47.30 Sleep apnea, unspecified; I34.0 Nonrheumatic mitral (valve) insufficiency; E66.9 Obesity, unspecified; R51 Headache; Z79.01 Long term (current) use of anticoagulants; Z68.37 Body mass index [BMI] 37.0-37.9, adult
CPT/HCPCS: 36415; 36600; 70450; 71045; 71275; 80048; 80053; 82805; 83735; 83880; 84484; 85025; 85027; 85379; 93005; 93306; 93458; 93567; 93880; 93970; 94640; 94660; 94761

== ENCOUNTER → 2018-08-09 | Outpatient (CLI) | payer MEDICARE ==
[~2018-08-09] MED LIST changes: -AMLO5TAB2 PO; +AMLO5TAB7 PO; -CATHETER FLUSH 10 ML SYR IV PRN; -REGADENOSON 0.4 MG/5 ML SYR (LEXISCAN) IV ONE; +RT-ALBUTEROL SULF 2.5 MG/3 ML PRE-MIX VIAL INH ONE
== END ==
LOC: RT 14:59
PROVIDERS: ATTEND Internal Medicine Interventional Cardiology
DX: I11.0 Hypertensive heart disease with heart failure (principal); I50.32 Chronic diastolic (congestive) heart failure; I48.1 Persistent atrial fibrillation; I34.0 Nonrheumatic mitral (valve) insufficiency; E66.01 Morbid (severe) obesity due to excess calories; Z68.41 Body mass index [BMI] 40.0-44.9, adult
CPT/HCPCS: 94060; 94726; 94729

== ENCOUNTER 2018-08-24 20:35 | Outpatient (CLI) | payer MEDICARE ==
[~2018-08-24 20:35] MED LIST changes: -RT-ALBUTEROL SULF 2.5 MG/3 ML PRE-MIX VIAL INH ONE
== END 2018-08-25 06:37 | disposition home or self-care (01) ==
LOC: SLEEP 20:35
PROVIDERS: ATTEND Family Medicine
DX: G47.33 Obstructive sleep apnea (adult) (pediatric) (principal); G47.36 Sleep related hypoventilation in conditions classified elsewhere; R09.02 Hypoxemia; R06.83 Snoring; I10 Essential (primary) hypertension; I48.91 Unspecified atrial fibrillation; I47.9 Paroxysmal tachycardia, unspecified; Z79.82 Long term (current) use of aspirin; Z79.899 Other long term (current) drug therapy
CPT/HCPCS: 95811

== ENCOUNTER → 2018-10-04 | Outpatient (CLI) | payer MEDICARE ==
--- NOTE | 2018-10-04 15:55 | Diagnostic Imaging Report ---
INDICATION: Dyspnea. Recent heart surgery. COMPARISON: 06/24/2018 FINDINGS: Frontal and lateral radiographic views of the chest were obtained and show persistent, although improved mild cardiomegaly. Pulmonary vasculature is within normal limits. There are small bibasilar pleural effusions. Otherwise, lungs are essentially clear. There is no pneumothorax on either side. Sternotomy wires and postsurgical changes of interval cardiac valve repair are noted. Bony structures show no acute abnormalities. IMPRESSION: 1. Improved, although persistent mild cardiomegaly. 2. Small bibasilar effusions. Dictated by: Dictated on workstation # [id number]
== END ==
LOC: RAD 13:55
PROVIDERS: ATTEND Internal Medicine Interventional Cardiology
DX: J90 Pleural effusion, not elsewhere classified (principal); I50.32 Chronic diastolic (congestive) heart failure; Z98.890 Other specified postprocedural states
CPT/HCPCS: 71046

== ENCOUNTER 2018-10-11 08:55 | Outpatient (CLI) | payer MEDICARE ==
[~2018-10-11] VITALS: Ht 167.6 cm; Wt 114.3 kg
[2018-10-11] VITALS (7 sets, daily range): BP systolic 112–131; BP diastolic 59–69
[2018-10-11] MEDS ORDERED: NS IV 500 ML 500 ML IV SCH (09:15)
[2018-10-11] MEDS ORDERED: FUROSEMIDE 40 MG/4 ML INJ (LASIX) IV NR (09:15)
[2018-10-11 13:06] LABS: HEMOGLOBIN 7.9 G/DL (11.5-16.0)
[2018-10-11 15:37] LABS: HEMOGLOBIN 8.6 G/DL (11.5-16.0)
== END 2018-10-11 14:35 | disposition home or self-care (01) ==
LOC: SDC 08:55
PROVIDERS: ATTEND Family Medicine
DX: D64.9 Anemia, unspecified (principal); I48.2 Chronic atrial fibrillation; I50.23 Acute on chronic systolic (congestive) heart failure
CPT/HCPCS: 36415; 36430; 85014; 85018; 86850; 86900; 86901; 86920

== ENCOUNTER → 2018-12-06 | Outpatient (CLI) | payer MEDICARE ==
[~2018-12-06] MED LIST changes: +AMLO10TA6 PO; +ATOR40TA70 PO; +CARV6.252 PO; +CLOT15CR5 TOP; +CYAN10006 PO; +DOXA2TAB2 PO; +FERR325T18 PO; +FURO40TA4 PO; +METR-197 PO; +MULT-35 PO; +POTA10TA14 PO; +SPIR25TA5 PO; +WARF1TAB82 PO; +WARF4TAB70 PO
--- NOTE | 2018-12-06 11:47 | Diagnostic Imaging Report ---
PROCEDURE: CT abdomen and pelvis without contrast. TECHNIQUE: Multiple contiguous axial images were obtained through the abdomen and pelvis without the use of intravenous contrast. INDICATION: Colitis, abdominal pain and diarrhea. COMPARISON: Correlation is made with prior CT from 03/03/2016. FINDINGS: The lung bases are clear. The liver contains several circumscribed low-density masses suggestive of cysts. All cysts appear similar to perhaps slightly increased in size when compared to prior exam. No biliary ductal dilatation is seen. The gallbladder is unremarkable. The pancreas and spleen are unremarkable. No adrenal mass is detected. The kidneys are unremarkable. Aorta is nonaneurysmal. The small and large bowel loops are normal in caliber. No obstruction is seen. There is diverticulosis of the sigmoid colon, however, no evidence of acute diverticulitis. Uterus contains calcified mass in the left uterine body consistent with a fibroid. The bladder is decompressed. No definite abdominal or pelvic lymphadenopathy is seen. No acute inflammatory process is identified. Appendix is unremarkable. IMPRESSION: Stable noncontrast CT of the abdomen and pelvis when compared with the examination from 03/03/2016 apart from mild increase in size of hepatic cyst. No acute feature is detected. There are findings of uncomplicated sigmoid diverticulosis. Dictated by: Dictated on workstation # [id number]
== END ==
LOC: RAD 10:14
PROVIDERS: ATTEND Family Medicine
DX: K76.89 Other specified diseases of liver (principal); K52.9 Noninfective gastroenteritis and colitis, unspecified; R10.9 Unspecified abdominal pain
CPT/HCPCS: 74176

== ENCOUNTER 2018-12-07 12:16 | Observation (INO) | payer MEDICARE ==
[~2018-12-07] VITALS: Ht 167.6 cm; Wt 112.9 kg
[~2018-12-07 12:16] MED LIST changes: -AMLO10TA6 PO; -ATOR40TA70 PO; -CARV6.252 PO; -CLOT15CR5 TOP; -CYAN10006 PO; -DOXA2TAB2 PO; -FERR325T18 PO; -FURO40TA4 PO; -METR-197 PO; -MULT-35 PO; -POTA10TA14 PO; -SPIR25TA5 PO; -WARF1TAB82 PO; -WARF4TAB70 PO
--- OUTSIDE RECORDS SUMMARY | 2018-12-07 13:29 | XMS REPORT | Encounter Summary ---
Author Author [facility] Organization [facility] Address Unknown Phone Unavailable Care Team Providers Care Icer Air Conditioning Name Role Phone Unique Frye MD PCP Emilee Turner MD 21 Reason for Visit * Reason Comments Post Operative Visit Postop MVR, cryozame, per MARIAELENA, Please discuss endocarditis prophylaxis Encounter Details Care Team Description Date Type Department Anthony River MD [address] [facility] [address] [place] [address] Persistent atrial fibrillation (HCC) (Primary Dx); S/P Maze operation for atrial fibrillation 10/30/2018 Office Visit [facility] Thoracic & Cardiovascular Surgeons [facility] [place] [address] Social History Date Tobacco Use Types Packs/Day Years Used Never Smoker Smokeless Tobacco: Never Used Alcohol Use Drinks/Week oz/Week Comments No Sex Assigned at Date Recorded Not on file Industry Job Start Date Occupation Not on file Not on file Not on file Travel End Travel History Travel Start No recent travel history available. as of this encounter Last Filed Vital Signs Time Taken Vital Sign Reading 10/30/2018 10:30 AM LOSS MITIGATION SPECIALIST Blood Pressure 122/72 10/30/2018 10:30 AM LOSS MITIGATION SPECIALIST Pulse 84 - Temperature - - Respiratory Rate - 10/30/2018 10:30 AM LOSS MITIGATION SPECIALIST Oxygen Saturation 90% - Inhaled Oxygen - Concentration 10/30/2018 10:30 AM LOSS MITIGATION SPECIALIST Weight 114.3 kg (252 lb) 10/30/2018 10:30 AM LOSS MITIGATION SPECIALIST Height 167.6 cm (5' 6") 10/30/2018 10:30 AM LOSS MITIGATION SPECIALIST Body Mass Index 40.67 in this encounter Functional Status Date of Assessment Functional Status Response 09/09/2018 Does the patient have a hearing impairment: No as of this encounter Progress Notes * Anthony River MD - 10/30/2018 11:15 AM LOSS MITIGATION SPECIALIST Date of Service: 10/30/2018 Subjective: Juany Conley is a 68 y.o. female. History of Present IllnessToday we had the pleasure of seeing your patient, Juany Conley, in our office for routine postop follow up after valvuloplasty mitral valve with cardiopulmonary bypass and prosthetic ring, tissue ablation and reconstruction of the atria with cardiopulmonary bypass and extensive tricuspid annuloplasty performed by Dr. Anthony River on 09/08/18. She did return into atrial fibrillation and was placed on warfarin. Her prior to arrival Eliquis was discontinued during this immediate postoperative period. She was weaned back to her home oxygen requirement of 2 L per nasal cannula and was discharged to a longterm facility. Since discharge Jauny Conley states she has been doing well. She has been walking daily. She denies any fevers, drainage from her incision or popping/ clicking of her sternum. She does have an area of her midsternal incision between her breasts which does appear that it has periods of moisture. It is without erythema or purulent drainage and she has been instructed to keep this area dry. She was seen by her PCP for routine follow-up and complained of extreme fatigue and her hemoglobin was checked and she continued to be anemic and she did receive a blood transfusion for this. She states since that time her energy level has continued to improve. She is continue to work with outpatient physical therapy and plans to start cardiac rehab at [facility]. She has followed up with her gauge checker, Dr. Turner, since discharge. We have instructed her that from a surgical standpoint is fine for her to transition back to her prior to arrival Eliquis from her warfarin. She has been instructed to contact her gauge checker for this transition. She has continued to have lower extremity edema and has needed her oxygen continuously. She does complain of a nonproductive cough. She has an appointment scheduled with her PCP in the next few days for reevaluation and we have instructed her to discuss her diuretics with them at that time. EKG performed today revealed atrial for ablation with a heart rate of 74. Chest xray performed today revealed stable sternum without significant effusion. She will need antibiotics prior to certain procedures. This helps prevent infection that could scar and destroy the heart valve. She will be given instructions on when to take this medication, such as before dental work, surgery, or medical procedures. She will need a baseline echocardiogram and then yearly after for continued surveillance. She was instructed on how to keep her sternal incision dry with gauze or another dressing for continued healing. She will weight herself daily and continue to follow up with her PCP and gauge checker. She is scheduled to see her PCP this week. She was instructed to discuss her swelling and weight with them. She may transition back to her [facility] per cardiology recommendations. Patient was informed that at 6 weeks from the date of surgery she may gradually increase the amount of weight that she is lifting. She should start at low weights and gradually work her way up. If there is no discomfort while doing it, then that is ok. If she has discomfort then she should stop. At 3 months from the date of surgery the sternum should be completely healed like it was never broken. If she has any questions or concerns she will notify our office otherwise we feel no further surgical follow-up is warranted. She will continue to follow with her PCP and gauge checker for continued care. Thank you for the opportunity to participate in the care of Juany Gambino Jonna. Review of Systems Constitution: Positive for chills, weakness and night sweats. HENT: Negative. Eyes: Negative. Cardiovascular: Positive for dyspnea on exertion, irregular heartbeat and leg swelling. Respiratory: Positive for cough and shortness of breath. Endocrine: Negative. Hematologic/Lymphatic: Negative. Skin: Negative. Musculoskeletal: Negative. Gastrointestinal: Positive for diarrhea. Genitourinary: Negative. Psychiatric/Behavioral: Negative. Allergic/Immunologic: Negative. Objective: acetaminophen (TYLENOL) 325 mg tablet Take two tablets by mouth every 6 hours as needed. albuterol (PROAIR HFA, VENTOLIN HFA, OR PROVENTIL HFA) 90 mcg/actuation inhaler Inhale 2 puffs by mouth into the lungs every 6 hours as needed for Wheezing or Shortness of Breath. Shake well before use. amLODIPine (NORVASC) 10 mg tablet Take 10 mg by mouth at bedtime daily. aspirin EC 81 mg tablet Take 81 mg by mouth daily. Take with food. atorvastatin (LIPITOR) 40 mg tablet Take one tablet by mouth daily. carvedilol (COREG) 6.25 mg tablet Take one tablet by mouth twice daily. Take with food. doxazosin (CARDURA) 2 mg tablet Take one tablet by mouth daily. furosemide (LASIX) 80 mg tablet Take 80 mg by mouth twice daily. potassium chloride SR (K-DUR) 20 mEq tablet Take 20 mEq by mouth twice daily. Take with a meal and a full glass of water. senna/docusate (SENOKOT-S) 8.6/50 mg tablet Take two tablets by mouth twice daily. traMADol (ULTRAM) 50 mg tablet Take one tablet to two tablets by mouth every 6 hours as needed. warfarin (COUMADIN) 4 mg tablet Take 4 mg by mouth daily. Vitals: 10/30/18 1030 BP: 122/72 Pulse: 84 SpO2: (!) 90% Weight: 114.3 kg (252 lb) Height: 1.676 m (5' 6") Body mass index is 40.67 kg/m. Physical Exam Constitutional: She is oriented to person, place, and time. She appears well- developed and well-nourished. morbid obesity HENT: Head: Normocephalic and atraumatic. Eyes: Pupils are equal, round, and reactive to light. Conjunctivae and EOM are normal. Neck: Normal range of motion. Neck supple. Cardiovascular: Normal rate, regular rhythm and intact distal pulses. Pulmonary/Chest: Effort normal and breath sounds normal. O2 per NC @ 2L Abdominal: Soft. Musculoskeletal: Normal range of motion. Edema: 2+ bilateral LE. Neurological: She is alert and oriented to person, place, and time. Skin: Skin is warm and dry. midsternal incision is intact without erythema or drainage. Middle portion of midsternal area with superficial open area that appears to have remained moist. Sternum is stable with cough. Psychiatric: She has a normal mood and affect. Her behavior is normal. Judgment and thought content normal. ROEN Simon-Kassi 10/31/18 @ 0855. I performed a history and physical examination of the patient and discussed his management with the midlevel provider. I reviewed the midlevel provider note and agree with the documented findings and plan of care. Mrs. conley is come along very well. I suspect it will take 3-6 months in order for her to recover completely from her open heart surgery. I think it is fine for her to resume her Eliquis instead of warfarin at this point. She will follow-up with her primary gauge checker, Dr. Turner. I truly appreciate the opportunity of taking care of your delightful patient. Thank you very much for the kind referral. We will keep you updated. Sincerely, Anthony River MD Cardiovascular and Thoracic Surgery [facility] [place], [place] [email or web address] MITIGATION SPECIALIST in this encounter Plan of Treatment Order Schedule Name Priority Associated Diagnoses Expected: 10/30/2018, Expires: 10/30/2019 ECG 12-LEAD Routine Persistent atrial fibrillation (HCC) S/P Maze operation for atrial fibrillation as of this encounter Procedures Comments Procedure Name Priority Date/Time Associated Diagnosis ECG-SCAN 10/31/2018 12:45 PM LOSS MITIGATION SPECIALIST in this encounter Results * ECG-SCAN (10/31/2018 12:45 PM LOSS MITIGATION SPECIALIST) Narrative Performed At Ordered by an unspecified provider. in this encounter Visit Diagnoses Diagnosis Persistent atrial fibrillation (HCC) - Primary Atrial fibrillation S/P Maze operation for atrial fibrillation Other postprocedural status in this encounter
--- OUTSIDE RECORDS SUMMARY | 2018-12-07 13:29 | XMS REPORT | Encounter Summary ---
Author Author [facility] Organization [facility] Address Unknown Phone Unavailable Care Team Providers Care Collection Teller Name Role Phone Unique Frye MD PCP Emilee Turner MD 21 Reason for Visit * Reason Comments General Question Encounter Details Care Team Description Date Type Department Carl dAame RN General Question 09/29/2018 Telephone [facility] Thoracic [facility] Cardiovascular Surgeons [place] [address] [address] [place] [address] Social History Date Tobacco Use Types Packs/Day Years Used Never Smoker Smokeless Tobacco: Never Used Alcohol Use Drinks/Week oz/Week Comments No Sex Assigned at Date Recorded Not on file Industry Job Start Date Occupation Not on file Not on file Not on file Travel End Travel History Travel Start No recent travel history available. as of this encounter Functional Status Date of Assessment Functional Status Response 09/09/2018 Does the patient have a hearing impairment: No as of this encounter Miscellaneous Notes * Telephone Encounter - Carl Adame RN - 09/29/2018 11:51 AM CDT Received call from patient's spouse with reports that today the patient has noted some increased SOB, and she states she feels "very chilled". He reports this AM her BP was 84/50, HR 70s, however they do not feel their BP cuff is accurate. They have not taken a temp, and he reports her incisions are CDI. Requested they recheck vitals, BP 123/101, HR 70s, Temp 99.1*F, SpO2 92% on 2L O2. Discussed that she should be evaluated today, they live about 2 hours from so it is difficult to come to our office. Called spoke with Riya, RN at patient's PCP office, the office closes at Noon on Tuesday's and they are unable to see the patient, nurse states she will update Dr. Frye of her status. Nurse also states they evaluated the patient on Tuesday, and she was doing well at that time, her BP was 138/82, SpO2 98% on 2L O2. Nurse at that office states they do have local urgent care however they would recommend the patient proceed to the ER. Updated patient's spouse, the patient does not want to seek care in the ER. Called patient's cardiology office, spoke with Alma, who also speaks with Emily, the medical staff specialist. They also recommend the patient seek care in the ER, and are not able to see the patient in the office today. Called patient back to update, she states she is "feeling much better now, my breathing is back to normal again". Updated her that we are glad to hear that she is feeling improved however we do still recommend she be evaluated in the ER. She states "well, if I get to feeling that way again that's the first place I'll go". Patient reports she will call us back on Tuesday AM to update us on her status. ADDENDUM: 10/02 0845 - Called patient to follow up on her status, spoke with her spouse. He states "she's doing really good now". He reports she no longer has any SOB, he states "shes much stronger and her vitals are all good". He states the patient denies any fevers or chills. He states they did no seek care in an ER or go to a local urgent care after she felt she was improving. They have an OV with her exhibit builder tomorrow. Instructed them to call if she would have any other issues. in this encounter Plan of Treatment Not on fileas of this encounter Visit Diagnoses Not on filein this encounter
--- OUTSIDE RECORDS SUMMARY | 2018-12-07 13:29 | XMS REPORT | Encounter Summary ---
Author Author [facility] Organization [facility] Address Unknown Phone Unavailable Care Team Providers Care Certified Adaptive Physical Educator Name Role Phone Unique Frye MD PCP Emilee Turner MD 21 Encounter Details Care Team Description Date Type Department Laine Mosher PA-C [address] [facility] [address] [place], [place] [id number] 10/30/2018 Hospital [facility] Radiology [facility] [address]nd [address] [place] [address] Social History Date Tobacco Use Types Packs/Day [...] hearing impairment: No as of this encounter Medications at Time of Discharge Start Date End Date Medication Sig Dispensed Refills 09/18/2018 acetaminophen (TYLENOL) Take two 0 325 mg tablet tablets by mouth every 6 hours as needed. albuterol (PROAIR HFA, Inhale 2 0 VENTOLIN HFA, OR puffs by PROVENTIL HFA) 90 mouth into mcg/actuation inhaler the lungs every 6 hours as needed for Wheezing or Shortness of Breath. Shake well before use. amLODIPine (NORVASC) 10 Take 10 mg by 0 mg tablet mouth at bedtime daily. aspirin EC 81 mg tablet Take 81 mg by 0 mouth daily. Take with food. 09/19/2018 atorvastatin (LIPITOR) 40 Take one 90 tablet 3 mg tablet tablet by mouth daily. 09/18/2018 carvedilol (COREG) 6.25 Take one 180 tablet 3 mg tablet tablet by mouth twice daily. Take with food. 09/19/2018 doxazosin (CARDURA) 2 mg Take one 90 tablet 1 tablet tablet by mouth daily. furosemide (LASIX) 80 mg Take 80 mg by 0 tablet mouth twice daily. potassium chloride SR Take 20 mEq 0 (K-DUR) 20 mEq tablet by mouth twice daily. Take with a meal and a full glass of water. 09/18/2018 senna/docusate Take two 60 tablet 0 (SENOKOT-S) 8.6/50 mg tablets by tablet mouth twice daily. 09/18/2018 traMADol (ULTRAM) 50 mg Take one 30 tablet 0 tablet tablet to two tablets by mouth every 6 hours as needed. warfarin (COUMADIN) 4 mg Take 4 mg by 0 tablet mouth daily. as of this encounter Plan of Treatment Not on fileas of this encounter Procedures Comments Procedure Name Priority Date/Time Associated Diagnosis CHEST 2 VIEWS Routine 10/30/2018 Mitral valve 10:08 AM VEHICLE TECHNICIAN insufficiency, unspecified etiology Persistent atrial fibrillation (HCC) in this encounter Results * CHEST 2 VIEWS (10/30/2018 10:08 AM VEHICLE TECHNICIAN) Impressions Performed At Stable cardiomegaly without CHF or pneumonia. [facility] RESULTS Approved by Tyron Huerta M.D. on 10/30/2018 10:27 AM By my electronic signature, I attest that I have personally reviewed the images for this examination and formulated the interpretations and opinions expressed in this report Finalized by Albert Leyva M.D. on 10/30/2018 11:44 AM. Dictated by Tyron Huerta M.D. on 10/30/2018 10:10 AM. Narrative Performed At CHEST 2 VIEWS [facility] RESULTS Clinical Indication: Female, 68 years old. Status post mitral valve repair, tricuspid valve repair, MAZE procedure Comparison: Chest x-ray 09/15/2018 Findings: Prior median sternotomy, mitral valve annuloplasty, and atrial appendage clip. The cardiac silhouette remains mildly enlarged without evidence of pulmonary vascular congestion. No consolidating pneumonia, pleural effusion, or pneumothorax. Procedure Note Interface, Radiant Results - 10/30/2018 11:47 AM VEHICLE TECHNICIAN CHEST 2 VIEWS Clinical Indication: Female, 68 years old. Status post mitral valve repair, tricuspid valve repair, MAZE procedure Comparison: Chest x-ray 09/15/2018 Findings: Prior median sternotomy, mitral valve annuloplasty, and atrial appendage clip. The cardiac silhouette remains mildly enlarged without evidence of pulmonary vascular congestion. No consolidating pneumonia, pleural effusion, or pneumothorax. IMPRESSION Stable cardiomegaly without CHF or pneumonia. Approved by Tyron Huerta M.D. on 10/30/2018 10:27 AM By my electronic signature, I attest that I have personally reviewed the images for this examination and formulated the interpretations and opinions expressed in this report Finalized by Albert Leyva M.D. on 10/30/2018 11:44 AM. Dictated by Tyron Huerta M.D. on 10/30/2018 10:10 AM. Performing Organization Address City/State/Zipcode Phone Number [facility] RESULTS in this encounter Visit Diagnoses Diagnosis Mitral valve insufficiency, unspecified etiology Persistent atrial fibrillation (HCC) Atrial fibrillation in this encounter
--- OUTSIDE RECORDS SUMMARY | 2018-12-07 13:29 | XMS REPORT | Clinical Summary ---
Author Author [facility] Organization [facility] Address Unknown Phone Unavailable Care Team Providers Care Progressive Die Maker Name Role Phone Unique Frye MD PCP Emilee Turner MD 21 Source Comments Some departments are not documenting in the electronic medical record. If you do not see the information that you expected, contact Release of Information in the Health Information Management department at [phone] for further assistance in locating additional records.[facility] Allergies No Known Allergies Medications End Date Status Medication Sig Dispensed Refills Start Date Active albuterol (PROAIR HFA, Inhale 2 0 VENTOLIN HFA, OR puffs by PROVENTIL HFA) 90 mouth into mcg/actuation inhaler the lungs every 6 hours as needed for Wheezing or Shortness of Breath. Shake well before use. Active aspirin EC 81 mg tablet Take 81 mg by 0 mouth daily. Take with food. Active amLODIPine (NORVASC) 10 Take 10 mg by 0 mg tablet mouth at bedtime daily. Active carvedilol (COREG) 6.25 Take one 180 tablet 3 09/18/201 mg tablet tablet by 8 mouth twice daily. Take with food. Active doxazosin (CARDURA) 2 mg Take one 90 tablet 1 09/19/201 tablet tablet by 8 mouth daily. Active acetaminophen (TYLENOL) Take two 0 09/18/201 325 mg tablet tablets by 8 mouth every 6 hours as needed. Active traMADol (ULTRAM) 50 mg Take one 30 tablet 0 09/18/201 tablet tablet to two 8 tablets by mouth every 6 hours as needed. Active atorvastatin (LIPITOR) 40 Take one 90 tablet 3 10/23/201 mg tablet tablet by 8 mouth daily. Active senna/docusate Take two 60 tablet 0 (SENOKOT-S) 8.6/50 mg tablets by 8 tablet mouth twice daily. Active furosemide (LASIX) 80 mg Take 80 mg by 0 tablet mouth twice daily. Active potassium chloride SR Take 20 mEq 0 (K-DUR) 20 mEq tablet by mouth twice daily. Take with a meal and a full glass of water. Active warfarin (COUMADIN) 4 mg Take 4 mg by 0 tablet mouth daily. Active Problems Problem Noted Date Acute on chronic respiratory failure with hypoxia 09/11/2018 S/P mitral valve repair 09/08/2018 Overview: 09/08/18 - s/p MVRepair, TVRepair, Maze H/O tricuspid valve annuloplasty 09/08/2018 Overview: 09/08/18 S/P Maze operation for atrial fibrillation 09/08/2018 Overview: 09/08/18 Atrial fibrillation Chronic diastolic heart failure HTN (hypertension) Hyperlipemia Morbid obesity Acute on chronic diastolic CHF (congestive heart failure), NYHA class 3 Resolved Problems Problem Noted Date Resolved Date Mitral regurgitation 08/01/2018 09/08/2018 Encounters Care Team Description Date Type Specialty Anthony River MD Persistent atrial fibrillation (HCC) (Primary Dx); S/P Maze operation for atrial fibrillation 10/30/2018 Office Visit Cardiothoracic Surgery Laine Mosher PA-C 10/30/2018 Hospital Radiology Encounter Carl Adame RN General Question 09/29/2018 Telephone Cardiothoracic Surgery Anthoyn River MD VALVULOPLASTY MITRAL VALVE WITH CARDIOPULMONARY BYPASS AND PROSTHETIC RING 09/08/2018 Surgery Fady Uribe MD 09/08/2018 Anesthesia Event Anthony River MD S/P mitral valve repair 09/08/2018 Hospital - Encounter 09/18/2018 Anthony River MD 09/07/2018 Hospital Radiology Encounter Anthony River MD Encounter for blood typing (Primary Dx); Mitral valve insufficiency, unspecified etiology; Atrial fibrillation, unspecified type (HCC) 09/07/2018 PAC Office Anesthesiology Visit Kwesi Vo MD 09/07/2018 Hospital Cardiology Encounter Anthony River MD 09/07/2018 Orders Only Cardiothoracic Surgery from Last 3 Months Family History Medical History Relation Name Comments Diabetes Brother Heart Disease Brother Cancer Father Heart Disease Father Hypertension Mother Relation Name Status Comments Brother Alive Father (Age 72) Mother (Age 90s) Social History Date Tobacco Use Types Packs/Day Years Used Never Smoker Smokeless Tobacco: Never Used Alcohol Use Drinks/Week oz/Week Comments No Sex Assigned at Date Recorded Not on file Industry Job Start Date Occupation Not on file Not on file Not on file Travel End Travel History Travel Start No recent travel history available. Last Filed Vital Signs Time Taken Vital Sign Reading 10/30/2018 10:30 AM CONTROL CLERK HEAD Blood Pressure 122/72 10/30/2018 10:30 AM CONTROL CLERK HEAD Pulse 84 09/18/2018 7:25 AM CDT Temperature 36.7 C (98.1 F) - Respiratory Rate - 10/30/2018 10:30 AM CONTROL CLERK HEAD Oxygen Saturation 90% - Inhaled Oxygen - Concentration 10/30/2018 10:30 AM CONTROL CLERK HEAD Weight 114.3 kg (252 lb) 10/30/2018 10:30 AM CONTROL CLERK HEAD Height 167.6 cm (5' 6") 10/30/2018 10:30 AM CONTROL CLERK HEAD Body Mass Index 40.67 Plan of Treatment Health Maintenance Due Date Last Done Comments HEPATITIS C SCREENING 1952 PHYSICAL (COMPREHENSIVE) 1959 EXAM DTAP/TDAP VACCINES (1 - 1970 Tdap) BREAST CANCER SCREENING 1992 COLORECTAL CANCER 2002 SCREENING SHINGLES RECOMBINANT 2002 VACCINE (1 of 2) OSTEOPOROSIS 2017 SCREENING/MONITORING PNEUMONIA (PCV13/PPSV23) 2017 VACCINES (1 of 2 - PCV13) INFLUENZA VACCINE 06/28/2018 Implants Device Identifier Shelf Expiration Date Model / Serial / Lot Implanted Type Area Manufactur er 11/27/2021 [id number] / [id number] / [id number] Band Annuloplasty 27mm Simulus N/A: Heart ATS MED Fully Flexible - [id number] Implanted: Qty: 1 on 09/08/2018 by Anthony River MD 01/26/2021 PRO 145 / NA / [id number] Clip Internal 60d 45mm Atriclip Pro N/A: Heart ATRICURE [employer] Head - Sna Implanted: Qty: 1 on 09/08/2018 by Anthony River MD Procedures Comments Procedure Name Priority Date/Time Associated Diagnosis ECG-SCAN 10/31/2018 12:45 PM CONTROL CLERK HEAD CHEST 2 VIEWS Routine 10/30/2018 Mitral valve 10:08 AM CONTROL CLERK HEAD insufficiency, unspecified etiology Persistent atrial fibrillation (HCC) ECG-SCAN 10/08/2018 3:30 PM CONTROL CLERK HEAD TELEMETRY STRIPS-SCAN 09/21/2018 1:15 PM CDT PROCEDURE RECORD-SCAN 09/19/2018 10:27 AM CDT ECG-SCAN 09/19/2018 10:11 AM CDT BASIC METABOLIC PANEL Routine 09/18/2018 3:54 AM CDT CBC Routine 09/18/2018 3:54 AM CDT PROTIME INR (PT) Routine 09/18/2018 3:54 AM CDT BASIC METABOLIC PANEL Routine 09/17/2018 4:36 AM CDT CBC Routine 09/17/2018 4:36 AM CDT PROTIME INR (PT) Routine 09/17/2018 4:36 AM CDT BASIC METABOLIC PANEL Routine 09/16/2018 3:51 AM CDT CBC Routine 09/16/2018 3:51 AM CDT PROTIME INR (PT) Routine 09/16/2018 3:51 AM CDT CHEST SINGLE VIEW Routine 09/15/2018 6:09 AM CDT BASIC METABOLIC PANEL Routine 09/15/2018 4:07 AM CDT CBC Routine 09/15/2018 4:07 AM CDT PROTIME INR (PT) Routine 09/15/2018 4:07 AM CDT POC GLUCOSE 09/14/2018 9:08 PM CDT POC GLUCOSE 09/14/2018 11:47 AM CDT CBC Add on 09/14/2018 3:54 AM CDT BASIC METABOLIC PANEL Add on 09/14/2018 3:54 AM CDT PROTIME INR (PT) Routine 09/14/2018 3:54 AM CDT POC GLUCOSE 09/13/2018 9:00 PM CDT POC GLUCOSE 09/13/2018 8:15 AM CDT CHEST 2 VIEWS Routine 09/13/2018 6:34 AM CDT PROTIME INR (PT) Routine 09/13/2018 4:45 AM CDT BASIC METABOLIC PANEL Routine 09/13/2018 4:45 AM CDT CBC Routine 09/13/2018 4:45 AM CDT POC GLUCOSE 09/12/2018 9:18 PM CDT POC GLUCOSE 09/12/2018 5:23 PM CDT POC GLUCOSE 09/12/2018 12:08 PM CDT POC GLUCOSE 09/12/2018 8:43 AM CDT CHEST SINGLE VIEW YOEL 09/12/2018 6:19 AM CDT POC GLUCOSE 09/12/2018 3:44 AM CDT MAGNESIUM Routine 09/12/2018 3:30 AM CDT PROTIME INR (PT) STAT 09/12/2018 3:30 AM CDT BASIC METABOLIC PANEL Routine 09/12/2018 3:30 AM CDT CBC Routine 09/12/2018 3:30 AM CDT POC GLUCOSE 09/11/2018 9:18 PM CDT POC GLUCOSE 09/11/2018 4:12 PM CDT PHOSPHORUS STAT 09/11/2018 4:10 PM CDT MAGNESIUM STAT 09/11/2018 4:10 PM CDT BASIC METABOLIC PANEL STAT 09/11/2018 4:10 PM CDT POC GLUCOSE 09/11/2018 12:12 PM CDT POC GLUCOSE 09/11/2018 8:47 AM CDT CHEST SINGLE VIEW Routine 09/11/2018 4:37 AM CDT POC GLUCOSE 09/11/2018 3:23 AM CDT PROTIME INR (PT) STAT 09/11/2018 3:20 AM CDT BASIC METABOLIC PANEL Routine 09/11/2018 3:20 AM CDT CBC Routine 09/11/2018 3:20 AM CDT POC GLUCOSE 09/10/2018 8:48 PM CDT POC GLUCOSE 09/10/2018 5:22 PM CDT MAGNESIUM STAT 09/10/2018 5:20 PM CDT BASIC METABOLIC PANEL STAT 09/10/2018 5:20 PM CDT POC GLUCOSE 09/10/2018 12:12 PM CDT BASIC METABOLIC PANEL STAT 09/10/2018 12:10 PM CDT POC GLUCOSE 09/10/2018 8:08 AM CDT CHEST SINGLE VIEW Routine 09/10/2018 4:15 AM CDT POC GLUCOSE 09/10/2018 3:02 AM CDT MAGNESIUM 09/10/2018 1:50 AM CDT PROTIME INR (PT) STAT 09/10/2018 1:50 AM CDT BASIC METABOLIC PANEL Routine 09/10/2018 1:50 AM CDT CBC Routine 09/10/2018 1:50 AM CDT POC GLUCOSE 09/09/2018 9:07 PM CDT POC GLUCOSE 09/09/2018 6:05 PM CDT BASIC METABOLIC PANEL STAT 09/09/2018 3:45 PM CDT CHEST SINGLE VIEW Routine 09/09/2018 3:35 PM CDT ECG-SCAN 09/09/2018 11:30 AM CDT POC GLUCOSE 09/09/2018 8:56 AM CDT O2 SATURATION, MIXED Routine 09/09/2018 VENOUS 8:48 AM CDT POC GLUCOSE 09/09/2018 6:52 AM CDT CHEST SINGLE VIEW Routine 09/09/2018 4:56 AM CDT POC GLUCOSE 09/09/2018 4:21 AM CDT O2 SATURATION, MIXED Routine 09/09/2018 VENOUS 4:11 AM CDT BASIC METABOLIC PANEL Routine 09/09/2018 4:11 AM CDT CBC Routine 09/09/2018 4:11 AM CDT ECG 12-LEAD Routine 09/09/2018 4:00 AM CDT POC GLUCOSE 09/09/2018 2:04 AM CDT POC GLUCOSE 09/09/2018 12:23 AM CDT O2 SATURATION, MIXED Routine 09/09/2018 VENOUS 12:17 AM CDT POC GLUCOSE 09/08/2018 8:35 PM CDT POTASSIUM Routine 09/08/2018 8:27 PM CDT O2 SATURATION, MIXED Routine 09/08/2018 VENOUS 8:27 PM CDT BLOOD GASES, ARTERIAL STAT 09/08/2018 6:50 PM CDT POC GLUCOSE 09/08/2018 6:49 PM CDT POC BLOOD GAS ARTERIAL 09/08/2018 5:41 PM CDT POC GLUCOSE 09/08/2018 5:38 PM CDT POTASSIUM Routine 09/08/2018 5:35 PM CDT MAGNESIUM Routine 09/08/2018 5:35 PM CDT POC GLUCOSE 09/08/2018 3:35 PM CDT POTASSIUM Routine 09/08/2018 2:23 PM CDT O2 SATURATION, MIXED STAT 09/08/2018 VENOUS 2:23 PM CDT POC GLUCOSE 09/08/2018 2:20 PM CDT POC IONIZED CALCIUM 09/08/2018 1:16 PM CDT POC SODIUM 09/08/2018 1:16 PM CDT POC POTASSIUM 09/08/2018 1:16 PM CDT POC HEMATOCRIT 09/08/2018 1:16 PM CDT POC BLOOD GAS ARTERIAL 09/08/2018 1:16 PM CDT MAGNESIUM STAT 09/08/2018 1:15 PM CDT PTT (APTT) STAT 09/08/2018 1:15 PM CDT PROTIME INR (PT) STAT 09/08/2018 1:15 PM CDT BASIC METABOLIC PANEL STAT 09/08/2018 1:15 PM CDT CBC STAT 09/08/2018 1:15 PM CDT POC GLUCOSE 09/08/2018 1:13 PM CDT LINE PLCMT 1V CXR STAT 09/08/2018 12:40 PM CDT POC IONIZED CALCIUM 09/08/2018 11:26 AM CDT POC SODIUM 09/08/2018 11:26 AM CDT POC POTASSIUM 09/08/2018 11:26 AM CDT POC HEMATOCRIT 09/08/2018 11:26 AM CDT POC BLOOD GAS ARTERIAL 09/08/2018 11:26 AM CDT POC GLUCOSE 09/08/2018 11:24 AM CDT POC IONIZED CALCIUM 09/08/2018 10:36 AM CDT POC SODIUM 09/08/2018 10:36 AM CDT POC POTASSIUM 09/08/2018 10:36 AM CDT POC HEMATOCRIT 09/08/2018 10:36 AM CDT POC BLOOD GAS ARTERIAL 09/08/2018 10:36 AM CDT POC GLUCOSE 09/08/2018 10:34 AM CDT POC IONIZED CALCIUM 09/08/2018 10:07 AM CDT POC SODIUM 09/08/2018 10:07 AM CDT POC POTASSIUM 09/08/2018 10:07 AM CDT POC HEMATOCRIT 09/08/2018 10:07 AM CDT POC BLOOD GAS ARTERIAL 09/08/2018 10:07 AM CDT POC GLUCOSE 09/08/2018 10:05 AM CDT POC IONIZED CALCIUM 09/08/2018 9:39 AM CDT POC SODIUM 09/08/2018 9:39 AM CDT POC POTASSIUM 09/08/2018 9:39 AM CDT POC HEMATOCRIT 09/08/2018 9:39 AM CDT POC BLOOD GAS ARTERIAL 09/08/2018 9:39 AM CDT POC GLUCOSE 09/08/2018 9:37 AM CDT ANESTHESIA Routine 09/08/2018 TRANSEESOPHAGEAL 9:29 AM CDT ECHOCARDIOGRAM Procedure Note - González Benson DO - 09/08/2018 9:29 AM CDT Anesthesi a Procedure: Transesoph ageal Echocardio gram ARNAUD Preproced ure checklist performed: 2 patient identifier s, risks & benefits discussed, patient evaluated, timeout performed, consent obtained and patient being monitored Staff Anesthesio logist: GONZÁLEZ BENSON Surgeon: ANTHONY RIVER Performed personally Indicatio n for ARNAUD: assessment of ascending aorta, assessment of surgical repair, defect repair evaluation , ventricula r function, volume assessment , confirmati on of pre-proced ure diagnosis and valvular assessment CPT codes: 54669 - ARNAUD 2D imaging (w or w/o M-mode) including probe placement, image acquisitio n, interpreta tion & report, 22902 - PWD and/or CWD complete and 67261 - Color flow velocity mapping Patient location: OR Intubated: yes Bite block: yes Heart visualized : yes Insertion: easy Probe type: multiplane Modalities : 2D, color flow mapping, continuous wave Doppler, pulse wave Doppler and 3D Echocardio graphic and Doppler Measuremen ts Ventricul ar Findings Right Ventricle RV cavity size: normal RV hypertroph y: no RV thrombus: no RV global function: normal Left Ventricle LV cavity size: dilated and spherical dilation. LV thrombus: no LV global function: normal LV ejection fraction: 55% Ventricula r Wall Motion Four Chamber View Basal anterolate ral: normal Basal inferosept al: normal Mid anterolate ral: normal Mid inferosept al: normal Apical lateral: normal Apical septal: normal Two Chamber View Basal anterior: normal Basal inferior: normal Mid anterior: normal Mid inferior: normal Apical anterior: normal Apical inferior: normal Long [place] View Basal anterosept al: normal Basal inferolate ral: normal Mid anterosept al: normal Mid inferolate ral: normal Apical lateral: normal Apical septal: normal [place]: normal Mid Short [place] View Mid anterosept al: normal Mid anterior: normal Mid anterolate ral: normal Mid inferolate ral: normal Mid inferior: normal Mid inferosept al: normal Valves Aortic Valve Annulus: normal Stenosis: none Annulus measuremen t: 1.9 cm Regurgitat ion severity: trace Leaflet morphology : thickened Leaflet motion: normal Mitral Valve Annulus: normal Stenosis: none Mean gradient: 2 mmHg VC width: 0.38 cm Regurgitat ion severity: moderate and With MAP 110. PISA EROA 0.16 Leaflet morphology : thickened Leaflet motion: restricted Tricuspid Valve Annulus: normal Stenosis: none Annulus measuremen t: 3.9 cm Regurgitat ion severity: moderate and Mith elevated MAP Leaflet morphology : thickened Leaflet motion: normal Pulmonic Valve Annulus: normal Stenosis: none Regurgitat ion severity: trace regurgitat ion Leaflet morphology : normal Aorta Ascending Aorta Size: normal Diameter: 3.5 cm Dissection : no Plaque thickness: 0-3 mm Plaque mobile: no Sinotubul ar Junction Size: normal Diameter: 2.42 cm Dissection : no Plaque mobile: no Sinus of Valsalva Size: normal Diameter: 3.23 cm Dissection : no Plaque mobile: no Descendin g Thoracic Aorta Size: normal Dissection : no Plaque mobile: no Atria Right Atrium Size: dilated SEC (smoke): no Thrombus: no Tumor: no Device: yes Left Atrium Size: dilated SEC (smoke): no Thrombus: no Tumor: no Device: no Left atrial appendage size: normal Septa Intra-atri al septal morphology : normal Intra-ignacia tricular septal morphology : normal Other Findings Pericardiu m: normal Pleural effusion: none Pulmonary arteries: normal Pulmonary venous flow: blunted (decreased ) systolic flow Additiona l notes: A/P 2.6/1.9, C-sept 2.88 cm. Post Procedure Mitral valve procedure Mean gradient (mmHg): 3 Systolic anterior motion of the mitral valve: no Return to [facility] for echo-relat ed diagnosis: no Aorta intact after decannulat ion: yes Post-proce dure LVEF measured: yes; 60% Post-proce dure RV dysfunctio n: none Post-proc edure comments: S/P MV ring annuloplas ty, TV ring annuloplas ty, LAAL with an atriclip and cryo Maze. LV: Normal size and function. RV: unchanged MV: ring in place, low mean gradient of 3, no LISA, No residual MR TV: ring in place, low mean gradient of 1, no residual TR. GRAY appears well isolated, no flow seen on color. Aorta intact No pericardia effusion. Performed by: GONZÁLEZ BENSON Authorized by: GONZÁLEZ BENSON ANESTHESIA PULMONARY Routine 09/08/2018 ARTERY CATHETER INSERTION 9:16 AM CDT ANESTHESIA CENTRAL LINE Routine 09/08/2018 INSERTION 9:15 AM CDT ANESTHESIA ARTERIAL LINE Routine 09/08/2018 INSERTION 9:12 AM CDT POC GLUCOSE 09/08/2018 9:04 AM CDT POC IONIZED CALCIUM 09/08/2018 8:41 AM CDT POC SODIUM 09/08/2018 8:41 AM CDT POC POTASSIUM 09/08/2018 8:41 AM CDT POC HEMATOCRIT 09/08/2018 8:41 AM CDT POC BLOOD GAS ARTERIAL 09/08/2018 8:41 AM CDT POC GLUCOSE 09/08/2018 8:38 AM CDT BLOOD TYPE CONFIRMATION - STAT 09/08/2018 Mitral valve ORDER ONLY IF REQUESTED 7:25 AM CDT insufficiency, BY LAB unspecified etiology Atrial fibrillation, unspecified type (HCC) Encounter for blood typing CHEST 2 VIEWS STAT 09/07/2018 Mitral valve 11:56 AM CDT insufficiency, unspecified etiology Atrial fibrillation, unspecified type (HCC) TYPE & CROSSMATCH STAT 09/07/2018 Mitral valve 10:24 AM CDT insufficiency, unspecified etiology Atrial fibrillation, unspecified type (HCC) PTT (APTT) STAT 09/07/2018 Mitral valve 10:24 AM CDT insufficiency, unspecified etiology Atrial fibrillation, unspecified type (HCC) PROTIME INR (PT) STAT 09/07/2018 Mitral valve 10:24 AM CDT insufficiency, unspecified etiology Atrial fibrillation, unspecified type (HCC) HEMOGLOBIN A1C STAT 09/07/2018 Mitral valve 10:24 AM CDT insufficiency, unspecified etiology Atrial fibrillation, unspecified type (HCC) COMPREHENSIVE METABOLIC STAT 09/07/2018 Mitral valve PANEL 10:24 AM CDT insufficiency, unspecified etiology Atrial fibrillation, unspecified type (HCC) CBC STAT 09/07/2018 Mitral valve 10:24 AM CDT insufficiency, unspecified etiology Atrial fibrillation, unspecified type (HCC) BNP (B-TYPE NATRIURETIC STAT 09/07/2018 Mitral valve PEPTI) 10:24 AM CDT insufficiency, unspecified etiology Atrial fibrillation, unspecified type (HCC) URINALYSIS MICROSCOPIC STAT 09/07/2018 Mitral valve REFLEX TO CULTURE 10:23 AM CDT insufficiency, unspecified etiology Atrial fibrillation, unspecified type (HCC) URINALYSIS DIPSTICK STAT 09/07/2018 Mitral valve REFLEX TO CULTURE 10:23 AM CDT insufficiency, unspecified etiology Atrial fibrillation, unspecified type (HCC) UA REFLEX CULTURE LABEL STAT 09/07/2018 Mitral valve 10:23 AM CDT insufficiency, unspecified etiology Atrial fibrillation, unspecified type (HCC) CULTURE-URINE 09/07/2018 W/SENSITIVITY 10:23 AM CDT from Last 3 Months Results * ECG-SCAN (10/31/2018 12:45 PM CONTROL CLERK HEAD) Narrative Performed At Ordered by an unspecified provider. * CHEST 2 VIEWS (10/30/2018 10:08 AM CONTROL CLERK HEAD) Only the most recent of 3 results within the time period is included. Impressions Performed At Stable cardiomegaly without CHF [...] Interface, Radiant Results - 10/30/2018 11:47 AM CONTROL CLERK HEAD CHEST 2 VIEWS Clinical Indication: Female, 68 [...] Address City/State/Zipcode Phone Number [facility] * ECG-SCAN (10/08/2018 3:30 PM CONTROL CLERK HEAD) Narrative Performed At Ordered by an unspecified provider. * TELEMETRY STRIPS-SCAN (09/21/2018 1:15 PM CDT) Narrative Performed At Ordered by an unspecified provider. * PROCEDURE RECORD-SCAN (09/19/2018 10:27 AM CDT) Narrative Performed At Ordered by an unspecified provider. * ECG-SCAN (09/19/2018 10:11 AM CDT) Narrative Performed At Ordered by an unspecified provider. * PROTIME INR (PT) (09/18/2018 3:54 AM CDT) Only the most recent of 11 results within the time period is included. INR 2.2 (H) 0.8 - 1.2 MAIN LAB Specimen Blood Performing Organization Address City/[facility] Phone Number [facility] [address] [place] [address] * CBC (09/18/2018 3:54 AM CDT) Only the most recent of 12 results within the time period is included. White Blood Cells 9.0 4.5 - 11.0 K/[facility] MAIN LAB RBC 2.95 (L) 4.0 - 5.0 M/UL MAIN LAB Hemoglobin 8.6 (L) 12.0 - 15.0 GM/DL [facility] Hematocrit 26.1 (L) 36 - 45 % MAIN LAB MCV 88.6 80 - 100 FL [facility] MCH 29.3 26 - 34 PG MAIN LAB MCHC 33.1 32.0 - 36.0 G/DL MAIN LAB RDW 14.6 11 - 15 % [facility] Platelet Count 310 150 - 400 K/[facility] MAIN [facility] MPV 7.7 7 - 11 FL MAIN LAB Specimen Blood Performing Organization Address [facility] Phone Number [facility] [address] [place] [address] * BASIC METABOLIC PANEL (09/18/2018 3:54 AM CDT) Only the most recent of 15 results within the time period is included. Sodium 134 (L) 137 - 147 MMOL/L MAIN LAB Potassium 3.7 3.5 - 5.1 MMOL/L MAIN LAB Chloride 96 (L) 98 - 110 MMOL/L MAIN LAB CO2 31 (H) 21 - 30 MMOL/L [facility] Anion Gap 7 3 - 12 [facility] Glucose 98 70 - 100 MG/DL [facility] Blood Urea Nitrogen 34 (H) 7 - 25 MG/DL [facility] Creatinine 1.33 (H) 0.4 - 1.00 MG/DL [facility] Calcium 9.3 8.5 - 10.6 MG/DL [facility] eGFR Non 40 (L) >60 mL/min [facility] Comment: The eGFR is not validated for use in drug dosing adjustments.Continue to use estimated creatinine clearance per dosing reference text.Please contact the Clinical Pharmacist for questions. eGFR 48 (L) >60 mL/min [facility] Comment: The eGFR is not validated for use in drug dosing adjustments.Continue to use estimated creatinine clearance per dosing reference text.Please contact the Clinical Pharmacist for questions. Specimen Blood Performing Organization Address City/State/Zipcode Phone Number [facility] [address] [place] [address] * CHEST SINGLE VIEW (09/15/2018 6:09 AM CDT) Only the most recent of 6 results within the time period is included. Impressions Performed At 1. Stable chest radiograph with unchanged enlargement of the cardiac silhouette [facility] and pulmonary vascular congestion, small left pleural effusion and atelectasis of the left lower lobe. Approved by Henny Wilkins MD on 09/15/2018 10:52 AM By my electronic signature, I attest that I have personally reviewed the images for this examination and formulated the interpretations and opinions expressed in this report Finalized by Albert Leyva M.D. on 09/15/2018 12:24 PM. Dictated by Henny Wilkins MD on 09/15/2018 8:17 AM. Narrative Performed At CHEST SINGLE VIEW [facility] RES[facility] Clinical Indication: Female, 68 years old with atelectasis. Comparison: Chest 2 views September 13, 2018. Findings: And AP upright, single view chest radiograph was obtained. Median sternotomy wires, mitral valve repair and left atrial appendage clip are again noted. There is persistent enlargement of the cardiac silhouette with pulmonary vascular congestion. Small left pleural effusion and atelectasis of the left lower lobe. Pleural effusion and atelectasis of the right lower lobe have improved. No pneumothorax. Procedure Note Interface, Radiant Results - 09/15/2018 12:27 PM CDT CHEST SINGLE VIEW Clinical Indication: Female, 68 years old with atelectasis. Comparison: Chest 2 views September 13, 2018. Findings: And AP upright, single view chest radiograph was obtained. Median sternotomy wires, mitral valve repair and left atrial appendage clip are again noted. There is persistent enlargement of the cardiac silhouette with pulmonary vascular congestion. Small left pleural effusion and atelectasis of the left lower lobe. Pleural effusion and atelectasis of the right lower lobe have improved. No pneumothorax. IMPRESSION 1. Stable chest radiograph with unchanged enlargement of the cardiac silhouette and pulmonary vascular congestion, small left pleural effusion and atelectasis of the left lower lobe. Approved by Henny Wilkins MD on 09/15/2018 10:52 AM By my electronic signature, I attest that I have personally reviewed the images for this examination and formulated the interpretations and opinions expressed in this report Finalized by Albert Leyva M.D. on 09/15/2018 12:24 PM. Dictated by Henny Wilkins MD on 09/15/2018 8:17 AM. Performing Organization Address [facility] Phone Number RAD RESULTS * POC GLUCOSE (09/14/2018 9:08 PM CDT) Only the most recent of 38 results within the time period is included. Glucose, POC 133 (H) 70 - 100 MG/DL [facility] Performing Organization Address [facility] Phone Number [facility] [address] [place] [address] * MAGNESIUM (09/12/2018 3:30 AM CDT) Only the most recent of 6 results within the time period is included. Magnesium 2.1 1.6 - 2.6 mg/dL [facility] MAIN [facility] Specimen Blood Performing Organization Address [facility] Phone Number MA[facility] LAB [address] [place] [address] * PHOSPHORUS (09/11/2018 4:10 PM CDT) Phosphorus 3.4Comment: NOTE NEW REFERENCE 2.0 - 4.5 MG/DL [employer] MAIN LAB RANGES Specimen Blood Performing Organization Address [facility] Phone Number MAIN LAB [address] [place] [address] * ECG-SCAN (09/09/2018 11:30 AM CDT) Narrative Performed At Ordered by an unspecified provider. * O2 SATURATION, MIXED VENOUS (09/09/2018 8:48 AM CDT) Only the most recent of 5 results within the time period is included. [id number] Venous 57.9 % MAIN LAB Specimen Blood Performing Organization Address [facility] Phone Number [facility] LAB [address] [place] [address] * POTASSIUM (09/08/2018 8:27 PM CDT) Only the most recent of 3 results within the time period is included. Potassium 4.0 3.5 - 5.1 MMOL/L MAIN LAB Specimen Blood Performing Organization Address [facility] Phone Number MAIN LAB [address] [place] [address] * BLOOD GASES, ARTERIAL (09/08/2018 6:50 PM CDT) pH-Arterial 7.40 7.35 - 7.45 MAIN LAB pCO2-Arterial 39 35 - 45 [facility] MAIN LAB pO2-Arterial 88 80 - 100 [facility] MAIN LAB Base Deficit-Arterial 0.5 MMOL/L [facility] MAIN LAB O2 Sat-Arterial 96.8 95 - 99 % MAIN LAB Hvrvsygiivb-EQA-Zsb 24.0 21 - 28 MMOL/L MAIN LAB Specimen Blood, arterial - Blood Performing Organization Address [facility] Phone Number MAIN LAB [address] [place] [address] * POC BLOOD GAS ARTERIAL (09/08/2018 5:41 PM CDT) Only the most recent of 7 results within the time period is included. PH-ART-POC 7.41 7.35 - 7.45 [facility] MAIN LAB [id number]-[id number] 40 35 - 45 [facility] MAIN LAB PO2-ART-POC 85 80 - 100 [facility] MAIN LAB Base Ex-ART-POC 1.0 MMOL/L MAIN LAB O2 Sat-ART-POC 97.0 95 - 99 % MAIN LAB Cetqjhzqatm-BEN-IVJ 25.3 21 - 28 MMOL/L MAIN LAB Performing Organization Address [facility] Phone Number MAIN LAB [address] [place] [address] * POC SODIUM (09/08/2018 1:16 PM CDT) Only the most recent of 6 results within the time period is included. Sodium-POC 143 137 - 147 MMOL/L [employer] MAIN LAB Performing Organization Address [facility] Phone Number [employer] MAIN LAB [address] [place] [address] * POC POTASSIUM (09/08/2018 1:16 PM CDT) Only the most recent of 6 results within the time period is included. Potassium-POC 3.5 3.5 - 5.1 MMOL/L [facility] MAIN LAB Performing Organization Address [facility] Phone Number [employer] MAIN LAB [address] [place] [address] * POC IONIZED CALCIUM (09/08/2018 1:16 PM CDT) Only the most recent of 6 results within the time period is included. Ionized Calcium-POC 1.17 1.0 - 1.3 MMOL/L [employer] MAIN LAB Performing Organization Address [facility] Phone Number [employer] MAIN LAB [address] [place] [address] * POC HEMATOCRIT (09/08/2018 1:16 PM CDT) Only the most recent of 6 results within the time period is included. Hemoglobin POC 10.2 (L) 12.0 - 15.0 GM/DL [employer] MAIN LAB Hematocrit POC 30.0 (L) 36 - 45 % [facility] MAIN LAB Performing Organization Address [facility] Phone Number [employer] MAIN LAB [address] [place] [address] * PTT (APTT) (09/08/2018 1:15 PM CDT) Only the most recent of 2 results within the time period is included. APTT 24.9Comment: NOTE NEW 20.0 - 36.0 SEC [employer] MAIN LAB REFERENCE RANGES Specimen Blood Performing Organization Address [facility] Phone Number [employer] MAIN LAB [address] [place] [address] * LINE PLCMT 1V CXR (09/08/2018 12:40 PM CDT) Impressions Performed At Interval median sternotomy and placement of an atrial clip device, as well as [facility] multiple indwelling lines and catheters as described above. No pneumothorax is identified. Finalized by Jeff Boykin D.O. on 09/08/2018 12:44 PM. Dictated by Jeff Boykin D.O. on 09/08/2018 12:41 PM. Narrative Performed At Chest single view [facility] Clinical history: Endotracheal tube and line placement Comparison: September 07, 2018 Findings: Interval median sternotomy and placement of an atrial appendage clip. Interval placement of an endotracheal tube with its tip lying midway between the clavicles and artemio. Interval placement of a right IJ Brooks-Darío catheter with its tip overlying the region of the main pulmonary artery. Interval placement of 2 thoracostomy tubes and a nasogastric tube. Nasogastric tube is visualized caudally to the level of the epigastrium. The distal tip is not clearly visualized due to overlying medical devices. Limited depth of inspiration causing crowding of the central pulmonary vasculature. The cardiac silhouette remains mildly enlarged. No pleural effusion or pneumothorax is identified. Procedure Note Interface, Radiant Results - 09/08/2018 12:47 PM CDT Chest single view Clinical history: Endotracheal tube and line placement Comparison: September 07, 2018 Findings: Interval median sternotomy and placement of an atrial appendage clip. Interval placement of an endotracheal tube with its tip lying midway between the clavicles and artemio. Interval placement of a right IJ Brooks-Darío catheter with its tip overlying the region of the main pulmonary artery. Interval placement of 2 thoracostomy tubes and a nasogastric tube. Nasogastric tube is visualized caudally to the level of the epigastrium. The distal tip is not clearly visualized due to overlying medical devices. Limited depth of inspiration causing crowding of the central pulmonary vasculature. The cardiac silhouette remains mildly enlarged. No pleural effusion or pneumothorax is identified. IMPRESSION Interval median sternotomy and placement of an atrial clip device, as well as multiple indwelling lines and catheters as described above. No pneumothorax is identified. Finalized by Jeff Boykin D.O. on 09/08/2018 12:44 PM. Dictated by Jeff Boykin D.O. on 09/08/2018 12:41 PM. Performing Organization Address City/State/Zipcode Phone Number [facility] * ANESTHESIA PULMONARY ARTERY CATHETER INSERTION (09/08/2018 9:16 AM CDT) Narrative Performed At González Benson DO 09/08/2018 10:00 AM Anesthesia Procedure: Pulmonary Artery Catheter PULMONARY ARTERY CATHETER INSERTION Date/Time: 09/08/2018 8:25 AM This note is used in conjunction with the CVC Line Insertion note for additional details regarding the insertion of a Pulmonary Artery Catheter: PA Catheter Insertion Procedure Catheter type: standard Insertion depth: 40 cm Events: none Additional notes: ATTESTATION I was present during the entire procedure performed by a resident Staff name:oGnzález Benson DO Date:09/08/2018 Performed by: BUNNY MANTILLA Authorized by: GONZÁLEZ BENSON Procedure Note González Benson DO - 09/08/2018 9:16 AM CDT Anesthesia Procedure: Pulmonary Artery Catheter PULMONARY ARTERY CATHETER INSERTION Date/Time: 09/08/2018 8:25 AM This note is used in conjunction with the CVC Line Insertion note for additional details regarding the insertion of a Pulmonary Artery Catheter: PA Catheter Insertion Procedure Catheter type: standard Insertion depth: 40 cm Events: none Additional notes: ATTESTATION I was present during the entire procedure performed by a resident Staff name: González Benson DO Date: 09/08/2018 Performed by: BUNNY MANTILLA Authorized by: GONZÁLEZ BENSON * ANESTHESIA CENTRAL LINE INSERTION (09/08/2018 9:15 AM CDT) Narrative Performed At Bunny Mantilla DO 09/08/20189:16 AM Anesthesia Procedure: Central Venous Catheter Line CENTRAL LINE INSERTION Date/Time: 09/08/2018 8:20 AM Patient location: OR Indications: medications requiring CV access, hemodynamic pressure monitoring and vascular access Preprocedure checklist performed: 2 patient identifiers, risks & benefits discussed, patient evaluated, timeout performed, consent obtained, patient being monitored and CVC bundle followed (proper hand washing, maximal sterile barrier technique with cap, sterile gown, sterile glove, sterile drape, and skin prep for antisepsis) CVC Line Insertion Procedure Skin prepped with chlorhexidine; skin prep agent completely dried prior to procedure. Patient Position: Trendelenburg Location: internal jugular vein Laterality: right Vein identification: ultrasound guided Confirmation of venous placement prior to dilation of vein by: ultrasound Ultrasound image captured Number of attempts: 1 Successful placement: yes Patient sedated: yes Sedation given: general Catheter: Catheter type: introducer placed using standard wire through needle technique Catheter size: 9 Fr Insertion depth: 10 cm Procedure Outcome Post procedure: all ports aspirated, dressing applied, line sutured and securement device; Dressing: chlorhexidine impregnated sponge and sterile occlusive dressing Placement verification: x-ray verification pending Events: none Observations: patient tolerated well Performed by: BUNNY MANTILLA Authorized by: GONZÁLEZ BENSON * ANESTHESIA ARTERIAL LINE INSERTION (09/08/2018 9:12 AM CDT) Narrative Performed At Bunny Mantilla DO 09/08/20189:13 AM Anesthesia Procedure: Arterial Line Placement A-LINE INSERTION Date/Time: 09/08/2018 7:50 AM Patient location: OR Preprocedure checklist performed: 2 patient identifiers, risks & benefits discussed, patient evaluated, timeout performed, consent obtained and patient being monitored Sterile technique: - Proper hand washing - Cap, mask - Sterile gloves - Skin prep for antisepsis Arterial Line Procedure Patient sedated: yes (see MAR) Sedation type: general; Artery prepped with chlorhexidine; skin prep agent completely dried prior to procedure. Location: radial artery Laterality: right Technique: palpation Needle gauge: 20 G Number of attempts: 1 Procedure Outcome Catheter secured with adhesive dressing applied Events: no complications noted during insertion and skin intact, warm, and dry Observation: pt tolerated well Performed by: BUNNY MANTILLA Authorized by: GONZÁLEZ BENSON * BLOOD TYPE CONFIRMATION - ORDER ONLY IF REQUESTED BY LAB (09/08/2018 7:25 AM CDT) ABO/RH(D) A NEG MAIN LAB Specimen Blood Performing Organization Address [facility] Phone Number MAIN LAB [address] [place] [address] * TYPE & CROSSMATCH (09/07/2018 10:24 AM CDT) Units Ordered 0 MAIN LAB Crossmatch Expires 09/10/2018 MAIN LAB Record Check 2ND TYPE REQUIRED MAIN LAB ABO/RH(D) A NEG MAIN LAB Antibody Screen NEG MAIN LAB Electronic Crossmatch YES MAIN LAB Specimen Blood Performing Organization Address City/[facility] Phone Number MAIN LAB [address] [place] [address] * BNP (B-TYPE NATRIURETIC PEPTI) (09/07/2018 10:24 AM CDT) B Type Natriuretic 323.0 (H) 0 - 100 PG/ML MAIN LAB Peptide Specimen Blood Performing Organization Address [facility] Phone [facility] MAIN LAB [address] [place] [address] * HEMOGLOBIN A1C (09/07/2018 10:24 AM CDT) Hemoglobin A1C 5.6 4.0 - 6.0 % [facility] MAIN LAB Comment: The ADA recommends that most patients with type 1 and type 2 diabetes maintain an A1c level <7%. Specimen Blood Performing Organization Address [facility] Phone Number MAIN LAB [address] [place] [address] * COMPREHENSIVE METABOLIC PANEL (09/07/2018 10:24 AM CDT) Sodium 142 137 - 147 MMOL/L [facility] MAIN LAB Potassium 4.0 3.5 - 5.1 MMOL/L [facility] MAIN LAB Chloride 101 98 - 110 MMOL/L [facility] MAIN LAB Glucose 93 70 - 100 MG/DL [facility] MAIN LAB Blood Urea Nitrogen 25 7 - 25 MG/DL [facility] MAIN LAB Creatinine 1.25 (H) 0.4 - 1.00 MG/DL [facility] MAIN LAB Calcium 10.2 8.5 - 10.6 MG/DL [facility] MAIN LAB Total Protein 7.4 6.0 - 8.0 G/DL [facility] MAIN LAB Total Bilirubin 0.7 0.3 - 1.2 MG/DL [facility] MAIN [facility] Albumin 4.3 3.5 - 5.0 G/DL [facility] MAIN [facility] Alk Phosphatase 90 25 - 110 U/L [facility] MAIN [facility] AST (SGOT) 22 7 - 40 U/L [facility] MAIN LAB CO2 31 (H) 21 - 30 MMOL/L [facility] MAIN [facility] ALT (SGPT) 15 7 - 56 U/L [facility] MAIN [facility] Anion Gap 10 3 - 12 [facility] MAIN [facility] eGFR Non 43 (L) >60 mL/min [facility] MAIN [facility] Comment: The eGFR is not validated for use in drug dosing adjustments.Continue to use estimated creatinine clearance per dosing reference text.Please contact the Clinical Pharmacist for questions. eGFR 52 (L) >60 mL/min [facility] MAIN LAB Comment: The eGFR is not validated for use in drug dosing adjustments.Continue to use estimated creatinine clearance per dosing reference text.Please contact the Clinical Pharmacist for questions. Specimen Blood Performing Organization Address City/[facility]/Zipcode Phone Number MAIN LAB [address] [place] [address] * UA REFLEX CULTURE LABEL (09/07/2018 10:23 AM CDT) UA Reflex Culture LAB LABEL [facility] MAIN LAB Specimen Urine Performing Organization Address City/[facility]/Zipcode Phone Number [facility] MAIN LAB [address] [place] [address] * URINALYSIS MICROSCOPIC REFLEX TO CULTURE (09/07/2018 10:23 AM CDT) WBCs,UA PACKED 0 - 2 /HPF [facility] MAIN LAB RBCs,UA 0-2 0 - 3 /HPF [facility] MAIN [facility] Comment,UA Urine submitted for reflex [facility] MAIN LAB culture if criteria are met:WBC>10, positive nitrite and/or >=1+ leukocyte esterase. If quantity is not sufficient, an addendum will follow. Bacteria,UA MODERATE (A) NEG-NEG MAIN LAB Squamous Epithelial Cells 5-10 0 - 5 [facility] MAIN LAB Specimen Urine Performing Organization Address City/[facility]/Zipcode Phone Number MAIN LAB [address] [place] [address] * URINALYSIS DIPSTICK REFLEX TO CULTURE (09/07/2018 10:23 AM CDT) Color,UA YELLOW [facility] MAIN [facility] Turbidity,UA 1+ (A) CLEAR-CLEAR [facility] MAIN LAB Specific [place]-Urine 1.016 1.003 - 1.035 [facility] MAIN LAB pH,UA 7.0 5.0 - 8.0 [facility] MAIN LAB Protein,UA NEG NEG-NEG [facility] MAIN LAB Glucose,UA NEG NEG-NEG [facility] MAIN [facility] Ketones,UA NEG NEG-NEG MAIN LAB Bilirubin,UA NEG NEG-NEG MAIN LAB Blood,UA NEG NEG-NEG [facility] MAIN LAB Urobilinogen,UA INCREASED (A) NORM-NORMAL [facility]IN [facility] Nitrite,UA NEG NEG-NEG [facility]IN [facility] Leukocytes,UA 3+ (A) NEG-NEG [facility] MAIN [facility] Urine Ascorbic Acid, UA POS (A) NEG-NEG MAIN LAB Comment: Ascorbic acid is found in various food supplies and dietary supplements, and is reported to cause strong interference with Macroscopic Urinalysis testing for glucose, blood and nitrite, and can result in a false negative result. Specimen Urine Performing Organization Address City/[facility]/Zipcode Phone Number MAIN LAB [address] [place] [address] * CULTURE-URINE W/SENSITIVITY (09/07/2018 10:23 AM CDT) Battery Name URINE CULTURE [facility] MAIN LAB Specimen Description URINE MAIN LAB Special Requests NONE [facility] MAIN LAB Culture <10,000 organisms/ml MAIN LAB MIXED CONTAMINANTS Report Status FINAL MAIN LAB 09/08/2018 Specimen Urine Performing Organization Address City/State/Zipcode Phone Number [facility] MAIN LAB [address] [place] [address] from Last 3 Months Insurance Payer Benefit Subscriber ID Type Phone Address Plan / Group MEDICARE MEDICARE xxxxxxxxxxx Medicare PART A [place] B [place] Medicare SUPPLEMENT Advance Directives Patient has advance care planning documents, and code status on file. For more information, please contact: [facility] [address] [place] [address] Date Inactivated Comments Code Status Date Activated 09/18/2018 1:15 PM Full Code 09/08/2018 6:40 AM Provider has discussed Code Status Yes w/Patient or Family?
[2018-12-07] MEDS ORDERED: PATIENT MAY USE OWN MEDS, ALL PO SCH (13:30)
[2018-12-07] MEDS ORDERED: ONDANSETRON 4 MG/2 ML (SDV) Z0FRAN IV PRN (13:30)
[2018-12-07] MEDS ORDERED: LOPERAMIDE 2 MG (IMODIUM) CAP PO NR (13:30)
[2018-12-07] MEDS ORDERED: LOPERAMIDE 2 MG (IMODIUM) CAP PO PRN (13:30)
--- OUTSIDE RECORDS SUMMARY | 2018-12-07 13:32 | XMS REPORT | Encounter Summary ---
Author Author [facility] Organization [facility] Address Unknown Phone Unavailable Care Team Providers Care Autoclave Operator Name Role Phone Unique Frye MD PCP Emilee Turner MD 21 Reason for Visit * Auth/Cert Referred By Contact Referred To Contact Status Reason Specialty Diagnoses / Procedures Diagnoses Mitral regurgitation Atrial fibrillation (HCC) Mitral regurgitation [I34.0] Atrial fibrillation (HCC) [I48.91] P rocedures AL VLVP MITRAL VALVE W/CARD BYP W/PROSTC RING AL ABLATION & RCNSTJ ATRIA EXTNSV W/BYPASS VALVULOPLASTY MITRAL VALVE WITH CARDIOPULMONARY BYPASS AND PROSTHETIC RING TISSUE ABLATION AND RECONSTRUCTION OF ATRIA WITH CARDIOPULMONARY BYPASS - EXTENSIVE Encounter Details Care Team Description Date Type Department David River MD [address] [facility] [address] [place] [address] [phone] S/P mitral valve repair 09/08/2018 Hospital Cardiothor Prgrsv cr - Encounter [address] 09/18/2018 [place] [address] Social History Date Tobacco Use Types Packs/Day [...] Vital Signs Time Taken Vital Sign Reading 09/18/2018 7:25 AM CDT Blood Pressure 128/57 09/18/2018 8:42 AM CDT Pulse 78 09/18/2018 7:25 AM CDT Temperature 36.7 C (98.1 F) - Respiratory Rate - 09/18/2018 8:42 AM CDT Oxygen Saturation 96% - Inhaled Oxygen - Concentration 09/18/2018 6:00 AM CDT Weight 108 kg (238 lb) 09/08/2018 7:42 AM CDT Height 167.6 cm (5' 6") 09/18/2018 6:00 AM CDT Body Mass Index 38.41 in this encounter Functional Status Date of Assessment Functional Status Response 09/09/2018 Does the patient have a hearing impairment: No as of this encounter Discharge Summaries * Laine Mosher PA-C - 09/18/2018 9:55 AM CDT Physician Discharge Summary Name: Ashlee Hoyt Date Of : 1950 Age: 68 years Admit date: 09/08/2018 Discharge date: 09/18/2018 Attending Physician: David River MD Service: Cardiothor Surg Physician Summary completed by: Laine Mosher PA-C Reason for hospitalization: Mitral valve regurgitation Significant PMH: Past Medical History: Diagnosis Date Acute on chronic diastolic CHF (congestive heart failure), NYHA class 3 (HCC ) Atrial fibrillation (HCC) Dyspnea Gastrointestinal disorder diverticulosis HTN (hypertension) Hx of acute respiratory failure 05/2018 2 liters NC continuously Hyperlipemia Mitral regurgitation Morbid obesity (HCC) Sleep apnea CPAP use Allergies: Patient has no known allergies. Brief Hospital Course: Ms. Hoyt is a 68 y/o F with PMHx atrial fibrillation, HTN, HLD, morbid obesity, and chronic respiratory failure who has been followed for mitral valve regurgitation. She was hospitalized in May with respiratory failure and echo demonstrated severe mitral regurgitation. She was evaluated in CTS clinic and surgical intervention was recommended. She presented to the hospital on 09/08/18 for surgery and was taken to the OR under the direction of Dr. River. She underwent mitral valve repair, tricuspid valve repair, MAZE, and AtriClip without complications and was monitored in the CTICU after surgery. She was diuresed and started on Coumadin for atrial fibrillation. She had an JOSE F and her creatinine peaked at 1.85, however it trended back down to her baseline. She was kept in the ICU due to acute on chronic respiratory failure and her oxygen requirements improved with aggressive pulmonary toilet and diuresis. She was transferred to the floor on POD 4. She was eventually weaned back to her home oxygen requirement of 2L. PT and OT were consulted and she slowly increased her physical activity daily. She was deemed stable for discharge to care home facility on POD 9. She was discharged on Coumadin 3mg QHS and will have levels followed by her PCP, Dr. Frye after she is discharged from the care home facility. Condition at Discharge: Stable Discharge Diagnoses: Hospital Problems Active Problems * (Principal)S/P mitral valve repair Atrial fibrillation (HCC) Chronic diastolic heart failure (HCC) HTN (hypertension) Hyperlipemia Morbid obesity (HCC) Acute on chronic diastolic CHF (congestive heart failure), NYHA class 3 ([facility]) H/O tricuspid valve annuloplasty S/P Maze operation for atrial fibrillation Acute on chronic respiratory failure with hypoxia ([facility]) Resolved Problems RESOLVED: Mitral regurgitation Surgical Procedures: 09/08/18 Dr. River Mitral valve repair with 27mm Medtronic flexible band, DeVega annuloplasty of tricuspid valve, left atrial appendage occlusion with 45mm AtriClip and Maze procedure Significant Diagnostic Studies and Procedures: noted in brief hospital course Consults: Anesthesiology/Critical Care Patient Disposition: [facility] Facility Patient instructions/medications: CHEST 2 VIEWS Standing Status: Future Standing Exp. Date: 09/18/19 Reason for exam:(Sign,Symptom,Reason) s/p mitral valve repair, tricuspid valve repair, MAZE 09/08/18 Other Activity Restrictions -You should and need to walk daily. Your goal is to walk 30 minutes at at time without stopping for breaks. This is a daily exercise routine that you should start as soon as you arrive home. Your basic daily activities do not count toward your 30 minute minimum, e.g. housework, toileting, fixing meals. Do not exercise outside in extremely hot or cold temperatures. -Bathing: NO tub baths, hot tubs, or swimming for 6 weeks. You may shower at any time. -Driving: NO driving for 2 weeks or while taking narcotics -Lifting: NO lifting more than 10 pounds (gallon of milk) for 6 weeks. -Monitoring: If you have access to a home blood pressure cuff, record your blood pressure and heart rate daily. Please call if your systolic blood pressure is <90 or >160, OR if your heart rate is <50 or >120 at rest Report These Signs and Symptoms Please contact your doctor for the following symptoms: *Temperature over 100 degrees F *Uncontrolled pain *Drainage with a foul odor *Shortness of breath *Racing or skipping heart beats *Popping or clicking of your breastbone *Suture material sticking up through your incisions *Change in coordination of ability to talk *If you gain more than 2 pounds in 24 hours, or 5 pounds in one week. Questions About Your Stay For questions or concerns regarding your hospital stay. Call [phone] Discharging attending physician: DAVID RIVER [[id number]] Complete if patient is going to a Penitentiary Facility I certify that the patient requires skilled care Yes The patient's stay is expected to be less than 30 days Yes I will be in charge of patient in group home No Cardiac Diet Limiting unhealthy fats and cholesterol is the most important step you can take in reducing your risk for cardiovascular disease. Unhealthy fats include saturated and trans fats. Monitor your sodium and cholesterol intake. Restrict your sodium to 2g (grams) or 2000mg (milligrams) daily, and your cholesterol to 200mg daily. If you have questions regarding your diet at home, you may contact a dietitian at . Incision Care *Keep your incision clean and dry. *May shower daily following procedure. Avoid direct water contact to the incision. Take sponge baths, working around the incision during this time. *Do not submerge incision in tub, pool, hot tub, or simms for 4 weeks. *Usually there are not stitches to be removed. Steri-strips (strips of tape) will begin to fall off in 10-14 days. If they remain after 2 weeks, gently remove them when they are damp after a shower. *Your incision should gradually look better each day. If you notice unusual swelling, redness, drainage, have increasing pain at the site, or have a fever greater than 100 degrees, notify your physician immediately. Return Appointment You will have a chest x-ray at 12:30. Your appointment with Dr. River will follow at 1:30. [facility] Provider DAVID RIVER [[id number]] Appointment date: 10/23/2018 Appointment time: 12:30 PM Return Appointment Please call your primary care provider to schedule an appointment for 1-2 weeks after you are discharged from the hospital for follow up. Provider UNIQUE FRYE [[id number]] Return Appointment You will need to schedule an appointment with your braid maker for 3-4 weeks after you are discharged from the hospital for follow up. Outside Provider Dr. Turner Cardiac Rehab Your physician has referred you to outpatient cardiac rehab. Contact [facility] Cardiac Rehab Department at [phone] to schedule an appointment. Opioid (Narcotic) Safety Information OPIOID (NARCOTIC) PAIN MEDICATION SAFETY We care about your comfort, and believe you need opioid medications at this time to treat your pain. An opioid is a strong pain medication. It is only available by prescription for moderate to severe pain. Usually these medications are used for only a short time to treat pain, but sometimes will be prescribed for longer. Talk with your doctor or nurse about how long they expect you to need this medication. When used the right way, opioids are safe and effective medications to treat your pain, even when used for a long time. Yet, when used in the wrong way, opioids can be dangerous for you or others. Opioids do not work for everyone. Most patients do not get full relief of their pain from opioid medication; full relief of your pain may not be possible. For your safety, we ask you to follow these instructions: *Only take your opioid medication as prescribed. If your pain is not controlled with the prescribed dose, or the medication is not lasting long enough, call your doctor. *Do not break or crush your opioid medication unless your doctor or pharmacist says you can. With certain medications, this can be dangerous, and may cause . *Never share your medications with others, even if they appear to have a good reason. Never take someone else's pain medication-this is dangerous, and illegal (a crime). Overdoses and deaths have occurred. *Keep your opioid medications safe, as you would with miranda, in a lock box or similar container. *Make sure your opioids are going to be secure, especially if you are around children or teens. *Talk with your doctor or pharmacist before you take other medications. *Avoid driving, operating machinery, or drinking alcohol while taking opioid pain medication. This may be unsafe. Pain medications can cause constipation. Constipation is bowel movements that are less often than normal. Stools often become very hard and difficult to pass. This may lead to stomach pain and bloating. It may also cause pain when trying to use the bathroom. Constipation may be treated with suppositories, laxatives or stool softeners. A diet high in fiber with plenty of fluids helps to maintain regular, soft bowel movements. Warfarin Information WARFARIN INFORMATION Medication regimen: You will be discharged on warfarin. Warfarin is a blood thinner medication. The dose you are currently taking may change based on blood levels/INR upon follow-up. It is very important to continue taking the medication as prescribed. Do not change your dose unless instructed by a healthcare professional. Warfarin requires monitoring of blood levels/INR on a regular basis. You should tell your healthcare professionals that you take warfarin. Follow-up: Follow-up on all scheduled appointments. Warfarin dosing may change based on your blood level/INR. If not done already, you will want to schedule an appointment after discharge to follow-up on your blood levels/INR. You may need to follow-up multiple times during the first several weeks after hospital discharge. Drug Interactions: Talk with your healthcare professional prior to starting or stopping any medications. This includes prescription, nlkw-tqe-owosldh, natural supplements , vitamins, and minerals. Many medications may increase or decrease your blood level/INR. Dietary Advice: Certain foods with vitamin K may alter the effects of warfarin. Green, leafy vegetables (examples: broccoli, spinach, kale) are some vegetables that may change blood levels/INR. It is important to keep a consistent diet. Avoid any major changes in diet when taking warfarin. Please notify a health professional before changing your eating habits. Adverse Reactions: The most common reaction seen with warfarin is an increased risk of bleeding. Bruising may also be a common occurrence while taking this medication. Reasons to go to the emergency department: *Falling/hitting your head, with periods of headaches, vision changes, dizziness , loss of consciousness *Heavy pressure on your chest, difficulty breathing, shortness of breath. This may be a sign of a clot in your lungs. *Blood-tinged vomiting, or what looks like coffee-grounds. This may be a sign of a stomach bleed. *Bright red urine. This may be a sign of a bleed in your bladder. *Extreme temperature changes, swelling, and pain in your thighs. This may be a sign of a clot in your legs. Current Discharge Medication List START taking these medications Details acetaminophen (TYLENOL) 325 mg tablet Take two tablets by mouth every 6 hours as needed. Refills: 0 PRESCRIPTION TYPE: No Print atorvastatin (LIPITOR) 40 mg tablet Take one tablet by mouth daily. Qty: 90 tablet, Refills: 3 PRESCRIPTION TYPE: No Print doxazosin (CARDURA) 2 mg tablet Take one tablet by mouth daily. Qty: 90 tablet, Refills: 1 PRESCRIPTION TYPE: No Print senna/docusate (SENOKOT-S) 8.6/50 mg tablet Take two tablets by mouth twice daily. Qty: 60 tablet, Refills: 0 PRESCRIPTION TYPE: No Print traMADol (ULTRAM) 50 mg tablet Take one tablet to two tablets by mouth every 6 hours as needed. Qty: 30 tablet, Refills: 0 PRESCRIPTION TYPE: Print warfarin (COUMADIN) 3 mg tablet Take one tablet by mouth at bedtime daily. Qty: 90 tablet, Refills: 3 PRESCRIPTION TYPE: No Print CONTINUE these medications which have been CHANGED or REFILLED Details carvedilol (COREG) 6.25 mg tablet Take one tablet by mouth twice daily. Take with food. Qty: 180 tablet, Refills: 3 PRESCRIPTION TYPE: No Print furosemide (LASIX) 40 mg tablet Take one tablet by mouth daily. Qty: 90 tablet, Refills: 3 PRESCRIPTION TYPE: No Print CONTINUE these medications which have NOT CHANGED Details albuterol (PROAIR HFA, VENTOLIN HFA, OR PROVENTIL HFA) 90 mcg/actuation inhaler Inhale 2 puffs by mouth into the lungs every 6 hours as needed for Wheezing or Shortness of Breath. Shake well before use. PRESCRIPTION TYPE: Historical Med amLODIPine (NORVASC) 10 mg tablet Take 10 mg by mouth at bedtime daily. PRESCRIPTION TYPE: Historical Med aspirin EC 81 mg tablet Take 81 mg by mouth daily. Take with food. PRESCRIPTION TYPE: Historical Med potassium chloride SR (K-DUR) 10 mEq tablet Take 20 mEq by mouth daily. Take with a meal and a full glass of water. PRESCRIPTION TYPE: Historical Med The following medications were removed from your list. 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 ([facility]) [facility] [facility] [address] Signed: Laine Mosher PA-C 09/18/2018 cc: Primary Care Physician: Unique Frye Referring physicians: Unique Frye MD Additional provider(s): Emilee Turner MD in this encounter Medications at Time of Discharge [...] tablet 1 tablet tablet by mouth daily. 09/18/2018 senna/docusate Take two 60 tablet 0 (SENOKOT-S) 8.6/50 mg tablets by tablet mouth twice daily. 09/18/2018 traMADol (ULTRAM) 50 mg Take one 30 tablet 0 tablet tablet to two tablets by mouth every 6 hours as needed. 09/19/2018 10/30/2018 furosemide (LASIX) 40 mg Take one 90 tablet 3 tablet tablet by mouth daily. 10/30/2018 potassium chloride SR Take 20 mEq 0 (K-DUR) 10 mEq tablet by mouth daily. Take with a meal and a full glass of water. 09/18/2018 10/30/2018 warfarin (COUMADIN) 3 mg Take one 90 tablet 3 tablet tablet by mouth at bedtime daily. as of this encounter Progress Notes * Unique Patel RN - 09/18/2018 11:09 AM CDT Cardiac Rehab Call Back Note: Pt reporting she has felt stronger the past few days. Pt reporting she has had some fluid in her legs. Pt reporting she is taking lasix and potassium for excess fluid. Pt reporting her PCP is aware of this and is following the fluid. Instructed pt to notify doctor if this does not improve or gets worse. Pt agrees with this plan. Are you tolerating activity?Yes Is pain controlled?Pt denies pain Is appetite normal?N/A Are you having symptoms of heart discomfort?No Are you having signs of infection at your incision sites or groin site?No Do you want outpt cardiac rehab?Yes. Pt reporting she has an appointment scheduled to start cardiac rehab. * Anjali Hampton RN - 09/18/2018 11:09 AM CDT Assessments complete and documented per flowsheet. A/Ox4. VSS. Requiring 2lpm O2 via NC. Afib (80s) on tele. Mild pain adequately managed with PRN tylenol. Surgical incisions clean, dry, approximated, and open to air; CTE sutures removed prior to d/c. Ambulating in giang with assist x1 and a walker, fall bundle in place. UOA, last BM 09/16. Discharge instructions reviewed with pt by RIMMA Penny. IV and tele removed. Report called to Lana at [facility] at [phone]. Pt left unit via facility transport with discharge instructions and all personal belongings. * Hemalatha Sunshine RN - 09/18/2018 10:14 AM CDT 1000 - Reviewed discharge instructions, medications, follow-up appt with pt and pt's family. Pt states verbal understanding - no questions. IV and Tele dc'd. CT sutures dc'd. Interfacility transfer packet complete and outside of room - narcotic prescription inside of envelope. Pt scheduled to be transported to facility at 10am this morning. Pt's RN, julian Alba. * Gonzalez French RT - 09/18/2018 8:45 AM CDT RT Adult Assessment Note NAME:Ashlee Hoyt :1950 AGE: 68 y.o. ADMISSION DATE: 09/08/2018 DAYS ADMITTED: LOS: 10 days RT Treatment Plan: Protocol Plan: Medications Albuterol: MDI PRN Protocol Plan: Procedures IPPB: Place a nursing order for "IS Q1h While Awake" for any of Lung Expansion indicators Oxygen/Humidity: O2 to keep SpO2 > 92% Monitoring: Pulse oximetry BID & PRN Comment: 2L home O2. Alb PRN home use. CESAR w/ CPAP Additional Comments: Impressions of the patient: resting on baseline oxygen. Vital Signs: Pulse: Pulse: 78 RR: Respirations: 16 PER MINUTE SpO2: SpO2: 96 % O2 Device: $$ O2 Device: Standby Liter Flow: O2 Liter Flow: (RA) O2%: Breath Sounds: Respiratory Effort: Respiratory Effort: Non-Labored * Unique Patel RN - 09/18/2018 8:31 AM CDT 09/18/18 0830 Cardiac Rehab Activity Distance Walked (feet) 360 ft BP Pre-activity 141/80 BP Post-activity 142/72 HR Pre-activity 76 bpm HR Post-activity 74 SaO2 Pre-activity 94 % SaO2 Post-activity 98 O2 Device Nasal Cannula O2 (lpm) 2 LPM Comments Pt ambulated with a steady gait. Pt tolerated ambulation well Mobility Progressive Mobility Level 9 Level of Assistance Assist X1 Assistive Device Walker Time Tolerated 0-10 minutes Activity Limited By No limitations * Mega Guadarrama MD - 09/18/2018 8:11 AM CDT Doing well, ready for d/c to [facility]. Reviewed with pt and , questions answered. GFM * Laine Mosher PA-C - 09/18/2018 7:33 AM CDT CARDIOTHORACIC SURGERY DAILY PROGRESS NOTE PROCEDURE: 09/08/18 - VALVULOPLASTY MITRAL VALVE WITH CARDIOPULMONARY BYPASS AND PROSTHETIC RIN (CPT) TISSUE ABLATION AND RECONSTRUCTION OF ATRIA WITH CARDIOPULMONARY BYPASS - EXTENSIVE: 28043 (CPT) POD #: 9 SUBJECTIVE: No acute events overnight. ASSESSMENT: Principal Problem: S/P mitral valve repair Active Problems: Atrial fibrillation (HCC) Chronic diastolic heart failure (HCC) HTN (hypertension) Hyperlipemia Morbid obesity (HCC) Acute on chronic diastolic CHF (congestive heart failure), NYHA class 3 (HCC) H/O tricuspid valve annuloplasty S/P Maze operation for atrial fibrillation Acute on chronic respiratory failure with hypoxia (HCC) PLAN: Neuro A&O. Pain controlled on current regimen. Continue PRN tramadol, Tylenol. CV Atrial fib, rates 60-70s. SBP 110s. On Norvasc 10mg, ASA 81mg, atorvastatin, Coreg 6.25. Holding home clonidine, cardizem CD. Intra op ARNAUD LVEF normal. 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 INR 1.7-->1.7-->1.8--> 2.2. Give 3mg tonight. Resp CXR 09/15 with cardiomegaly, improved vascular congestion, persistent bibasilar atelectasis and small bilateral effusions. Weaned to 2L O2 (wore 2L at home). Continue home CPAP qHS. Continue IS, aggressive pulm toilet. IPPB. Renal JOSE F on CKD stage III, baseline ~1.2. SCr 1.59-->1.41-->1.46-->1.33--> 1.42-->1.39-->1.33. On Lasix 40mg PO daily. UOP 1.8L/24hr. Na+ 133. FW restriction. Net -6kg/admission. GI - Cardiac diet, +BM ID Afebrile. WBC 7.8 Heme Hgb 8.9, Plts 292. Continue coumadin for Afib. FEN Hgb A1c 5.6 %. FSBS stable, D/C SSI. Activity PT/OT consulted. Recommending inpatient setting at discharge. Planning DC to facility today. Walked 200' yesterday. Increase activity as able. Disposition - Continue pulmonary toilet, wean O2 as able. Cont Coumadin, PO Lasix. Increase activity. DC to SNF today. OBJECTIVE: Vitals: 09/17/18 2020 09/17/18 2300 09/18/18 0335 09/18/18 0600 BP: 118/63 113/67 Pulse: 71 70 74 Temp: 36.8 C (98.3 F) 36.7 C (98.1 F) SpO2: 98% 96% 93% Weight: 108 kg (238 lb) Height: Physical Exam: General: A&O x 3 Cardiovascular: Irregularly irregular, no murmur Respiratory: LS CTA jocelyn, diminished in bases GI: obese, soft, NT, +BS Extremities: trace bilateral LE edema Incisions: clean, dry, intact, sternum stable Prophylaxis Review: Lines: No Antibiotic Usage: No VTE: Pharmacological prophylaxis; Warfarin and Mechanical prophylaxis; Sequential compression device Urinary Catheter: No Pertinent Meds: Taking Reason for Not Taking 1. Aspirin yes 2. B-Uziel yes 3. Statin yes 4. JEANETTE/ARB no EF > 40% LABS: Lab Results Component Value Date/Time WBC 9.0 09/18/2018 03:54 AM HGB 8.6 (L) 09/18/2018 03:54 AM HCT 26.1 (L) 09/18/2018 03:54 AM PLTCT 310 09/18/2018 03:54 AM Lab Results Component Value Date/Time NA 134 (L) 09/18/2018 03:54 AM K 3.7 09/18/2018 03:54 AM CL 96 (L) 09/18/2018 03:54 AM CO2 31 (H) 09/18/2018 03:54 AM BUN 34 (H) 09/18/2018 03:54 AM CR 1.33 (H) 09/18/2018 03:54 AM GLU 98 09/18/2018 03:54 AM Lab Results Component Value Date MG 2.1 09/12/2018 Lab Results Component Value Date PO4 3.4 09/11/2018 Lab Results Component Value Date GLUPOC 133 (H) 09/14/2018 GLUPOC 116 (H) 09/14/2018 GLUPOC 124 (H) 09/13/2018 GLUPOC 113 (H) 09/13/2018 GLUPOC 150 (H) 09/12/2018 GLUPOC 105 (H) 09/12/2018 GLUPOC 91 09/12/2018 GLUPOC 99 09/12/2018 Laine Mosher PA-C [id number] * Brionna Giang RN - 09/18/2018 5:57 AM CDT Pt rested most of night. Afib with BBB on tele. Vital signs per trend. Pt has denied pain. Mid sternal incision approximated/ENVIRONMENTAL EDUCATOR with dermabond. CT exits with sutures. Denies needs. Will cont to monitor. * Ashtyn Rae RN - 09/17/2018 4:50 PM CDT Pt has walked in the halls, and took a shower. She has had minimal c/o pain controlled with tylenol. Urine output adequate, and no BM this shift, although is still requesting maalox to prevent diarrhea again. Remains afib on tele, and has been weaned to home O2 dose of 2L O2 NC. No other changes to previously charted assessments. Will cont to monitor. * Daniel Alves PA-C - 09/17/2018 6:31 AM CDT CARDIOTHORACIC SURGERY DAILY PROGRESS NOTE PROCEDURE: 09/08/18 - VALVULOPLASTY MITRAL VALVE WITH CARDIOPULMONARY BYPASS AND PROSTHETIC RIN (CPT) TISSUE ABLATION AND RECONSTRUCTION OF ATRIA WITH CARDIOPULMONARY BYPASS - EXTENSIVE: 40169 (CPT) POD #: 8 SUBJECTIVE: No acute events overnight. ASSESSMENT: Principal Problem: S/P mitral valve repair Active Problems: Atrial fibrillation (HCC) Chronic diastolic heart failure (HCC) HTN (hypertension) Hyperlipemia Morbid obesity (HCC) Acute on chronic diastolic CHF (congestive heart failure), NYHA class 3 (HCC) H/O tricuspid valve annuloplasty S/P Maze operation for atrial fibrillation Acute on chronic respiratory failure with hypoxia (HCC) PLAN: Neuro A&O. Pain controlled on current regimen. Continue PRN tramadol, Tylenol. CV Atrial fib, rates 60-70s. SBP 110s-130s. On Norvasc 10mg, ASA 81mg, atorvastatin, Coreg 6.25. Holding home clonidine, cardizem CD Intra op ARNAUD LVEF normal. 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 INR 1.7-->1.7-->1.8. Give 3mg tonight. Resp CXR 09/15 with cardiomegaly, improved vascular congestion, persistent bibasilar atelectasis and small bilateral effusions. On 3-4L NC. Wean O2 as able. Wears 2L home O2. Continue home CPAP qHS. Continue IS, aggressive pulm toilet. IPPB. Renal JOSEF on CKD stage III, baseline ~1.2. SCr 1.59-->1.41-->1.46-->1.33--> 1.42-->1.39. On Lasix 40mg PO daily. UOP 1.8L/24hr. Na+ 133. FW restriction. Net -6kg/admission. GI - Cardiac diet, +BM ID Afebrile. WBC 7.8 Heme Hgb 8.9, Plts 292. Continue coumadin for Afib. FEN Hgb A1c 5.6 %. FSBS stable, D/C SSI. Activity PT/OT consulted. Recommending inpatient setting at discharge. Planning DC to facility on Tuesday. Walked 200' yesterday. Increase activity as able. Disposition - Continue pulmonary toilet, wean O2 as able. Cont Coumadin, PO Lasix. Increase activity. Will discuss with staff. Likely DC to facility Tuesday. OBJECTIVE: Vitals: 09/16/18 1830 09/16/18 2115 09/16/18 2300 09/17/18 0300 BP: 125/71 111/74 110/65 Pulse: 64 70 74 73 Temp: 36.7 C (98.1 F) 37.1 C (98.7 F) 36.5 C (97.7 F) SpO2: 98% 97% 98% Weight: Height: Physical Exam: General: A&O x 3 Cardiovascular: Irregularly irregular, no murmur Respiratory: LS CTA jocelyn, diminished in bases GI: obese, soft, NT, +BS Extremities: trace bilateral LE edema Incisions: clean, dry, intact, sternum stable Prophylaxis Review: Lines: No Antibiotic Usage: No VTE: Pharmacological prophylaxis; Warfarin and Mechanical prophylaxis; Sequential compression device Urinary Catheter: No Pertinent Meds: Taking Reason for Not Taking 1. Aspirin yes 2. B-Uziel yes 3. Statin yes 4. JEANETTE/ARB no EF > 40% LABS: Lab Results Component Value Date/Time WBC 7.8 09/17/2018 04:36 AM HGB 8.9 (L) 09/17/2018 04:36 AM HCT 26.8 (L) 09/17/2018 04:36 AM PLTCT 292 09/17/2018 04:36 AM Lab Results Component Value Date/Time NA 133 (L) 09/17/2018 04:36 AM K 4.2 09/17/2018 04:36 AM CL 94 (L) 09/17/2018 04:36 AM CO2 31 (H) 09/17/2018 04:36 AM BUN 36 (H) 09/17/2018 04:36 AM CR 1.39 (H) 09/17/2018 04:36 AM GLU 103 (H) 09/17/2018 04:36 AM Lab Results Component Value Date MG 2.1 09/12/2018 Lab Results Component Value Date PO4 3.4 09/11/2018 Lab Results Component Value Date GLUPOC 133 (H) 09/14/2018 GLUPOC 116 (H) 09/14/2018 GLUPOC 124 (H) 09/13/2018 GLUPOC 113 (H) 09/13/2018 GLUPOC 150 (H) 09/12/2018 GLUPOC 105 (H) 09/12/2018 GLUPOC 91 09/12/2018 GLUPOC 99 09/12/2018 Daniel Alves PA-C [id number] Associated attestation - Blas Nogueira MD - 09/17/2018 8:55 AM CDT Walking in the halls well. She is still a little bit of oxygen. We will see if we get that off before she leaves. Anticipate transfer to skilled facility tomorrow morning. Miguel Nogueira M.D. * Ashtyn Rae RN - 09/16/2018 5:46 PM CDT Pt has done well today. She has walked in the halls x3, and has minimal c/o pain. She had multiple loose BMs despite holding all bowel meds this morning, but she also has diverticulitis. Maalox has calmed her stomach. Urine output adequate. Pt remains in afib and on RA. No other changes. Will cont to monitor. * Daniel Alves PA-C - 09/16/2018 8:58 AM CDT CARDIOTHORACIC SURGERY DAILY PROGRESS NOTE PROCEDURE: 09/08/18 - VALVULOPLASTY MITRAL VALVE WITH CARDIOPULMONARY BYPASS AND PROSTHETIC RIN (CPT) TISSUE ABLATION AND RECONSTRUCTION OF ATRIA WITH CARDIOPULMONARY BYPASS - EXTENSIVE: 34387 (CPT) POD #: 8 SUBJECTIVE: No acute events overnight. ASSESSMENT: Principal Problem: S/P mitral valve repair Active Problems: Atrial fibrillation (HCC) Chronic diastolic heart failure (HCC) HTN (hypertension) Hyperlipemia Morbid obesity (HCC) Acute on chronic diastolic CHF (congestive heart failure), NYHA class 3 (HCC) H/O tricuspid valve annuloplasty S/P Maze operation for atrial fibrillation Acute on chronic respiratory failure with hypoxia (HCC) PLAN: Neuro A&O. Pain controlled on current regimen. Continue PRN tramadol, Tylenol. CV Atrial fib, rates 70-80s. SBP 110s-140s. On Norvasc 10mg, ASA 81mg, atorvastatin, Coreg 6.25. Holding home clonidine, cardizem CD Intra op ARNAUD LVEF normal. 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 INR 1.7-->1.7-->1.8. Give 3mg tonight. Resp CXR 09/15 with cardiomegaly, improved vascular congestion, persistent bibasilar atelectasis and small bilateral effusions. On 3-4L NC. Wean O2 as able. Wears 2L home O2. Continue home CPAP qHS. Continue IS, aggressive pulm toilet. IPPB. Renal JOSE F on CKD stage III, baseline ~1.2. SCr 1.59-->1.41-->1.46-->1.33--> 1.42. On Lasix 40mg PO daily. UOP 2.0L/24hr. Lasix 40mg IV BID. Na+ 134. FW restriction. Net -6kg/admission. GI - Cardiac diet, continue post op bowel regimen. +BM ID Afebrile. WBC 7.2 Heme Hgb 8.9, Plts 247. Continue coumadin for Afib. FEN Hgb A1c 5.6 %. FSBS stable, D/C SSI. Activity PT/OT consulted. Recommending inpatient setting at discharge. Planning DC to facility on Tuesday. Walked 100' yesterday. Increase activity as able. Disposition - Continue pulmonary toilet, wean O2 as able. Cont Coumadin, PO Lasix. Increase activity. Will discuss with staff. Likely DC to facility Tuesday. OBJECTIVE: Vitals: 09/16/18 0104 09/16/18 0300 09/16/18 0700 09/16/18 0746 BP: 131/59 145/79 Pulse: 80 89 85 Temp: 37.2 C (98.9 F) 36.8 C (98.2 F) SpO2: 98% 92% 93% Weight: 108.6 kg (239 lb 6.4 oz) Height: Physical Exam: General: A&O x 3 Cardiovascular: Irregularly irregular, no murmur Respiratory: LS CTA jocelyn, diminished in bases GI: obese, soft, NT, +BS Extremities: trace bilateral LE edema Incisions: clean, dry, intact, sternum stable Prophylaxis Review: Lines: No Antibiotic Usage: No VTE: Pharmacological prophylaxis; Warfarin and Mechanical prophylaxis; Sequential compression device Urinary Catheter: No Pertinent Meds: Taking Reason for Not Taking 1. Aspirin yes 2. B-Uziel yes 3. Statin yes 4. JEANETTE/ARB no EF > 40% LABS: Lab Results Component Value Date/Time WBC 7.2 09/16/2018 03:51 AM HGB 8.9 (L) 09/16/2018 03:51 AM HCT 26.3 (L) 09/16/2018 03:51 AM PLTCT 247 09/16/2018 03:51 AM Lab Results Component Value Date/Time NA 134 (L) 09/16/2018 03:51 AM K 3.9 09/16/2018 03:51 AM CL 94 (L) 09/16/2018 03:51 AM CO2 31 (H) 09/16/2018 03:51 AM BUN 40 (H) 09/16/2018 03:51 AM CR 1.42 (H) 09/16/2018 03:51 AM GLU 104 (H) 09/16/2018 03:51 AM Lab Results Component Value Date MG 2.1 09/12/2018 Lab Results Component Value Date PO4 3.4 09/11/2018 Lab Results Component Value Date GLUPOC 133 (H) 09/14/2018 GLUPOC 116 (H) 09/14/2018 GLUPOC 124 (H) 09/13/2018 GLUPOC 113 (H) 09/13/2018 GLUPOC 150 (H) 09/12/2018 GLUPOC 105 (H) 09/12/2018 GLUPOC 91 09/12/2018 GLUPOC 99 09/12/2018 Daniel Alves PA-C [id number] * Brionna Giang RN - 09/16/2018 5:27 AM CDT Pt rested most of night. AFib with BBB on tele. Vital signs per trend. Pt has c/o minimal pain. No prn medications requested. Incisions approximated with no drainage. CT exits with sutures. Denies needs. Will cont to monitor. * Peri Mckeon RN - 09/15/2018 6:27 PM CDT Assumed pt care at 0700. VSS per trend, A&Ox4, tolerating 3-4L NC, Afib on tele. Incisional pain relieved with Tylenol. Incisions C/D/I. UOP adequate. BM x2 during shift. Pt states throughout the day she feels very tired and wants to sleep. Team aware. Encouraging ambulation. High fall risk bundle in place, call light within reach, will cont to monitor. 1830-No further changes or acute events during shift. Will cont to monitor and handoff to night RN. * Suellen Morris, PT - 09/15/2018 3:35 PM CDT PHYSICAL THERAPY NOTE Patient declined to participate despite encouragement and education about the role and benefits of physical therapy. Pt states she returned from a walk with nursing staff about 20 minutes prior to this therapist's arrival - reports she is fatigued at this time and wants to take a nap. Physical therapy will continue to follow and provide intervention as indicated. Therapist: Suellen Morris PT, DPT Date: 09/15/2018 * Lorin Adams - 09/15/2018 1:11 PM CDT CLINICAL NUTRITION Clinical Nutrition Assessment Summary NAME:Ashlee Hoyt :1950 AGE: 68 y.o. ADMISSION DATE: 09/08/2018 DAYS ADMITTED: LOS: 7 days Nutrition Assessment of Patient: BMI Categories Adult: Obesity Class II: 35-39.9 Malnutrition Assessment: Does not meet criteria Current Oral Intake: Inconsistent, Inadequate Estimated Calorie Needs: 1750 kcal (25 kcal/kg per DBW) Estimated Protein Needs: 84 gm (1.2 gm/kg per DBW) Oral Diet Order: Cardiac (1000mL free water restriction) Comments: Pt is a 68 yo female with hx of CHF, afib, HTN, HLD and mitral regurgitation who presented for planned valvuloplasty mitral valve with cardiopulmonary bypass and prosthetic ring; tissue ablation and reconstruction of atria with cardiopulmonary bypass. Now POD #7. Pt reports having a normal appetite and PO intakes V/[employer]. She does not follow any specific diet restrictions. She endorses reduced appetite since admission, which she attributes to nausea. PRN behzad on board, last given this morning. Per diet recall, intakes have been inconsistent and largely inadequate. For breakfast today she only ate a piece of toast and for lunch she had a few bites of a pretzel brought in by her spouse. She has tried Boost in the past with marginal liking and was agreeable to RD providing one for her this afternoon. RD encouraged continued small/ frequent PO intake attempts with focus on protein/kcal rich options until appetite improves. Pt denies recent wt loss, but was unable to report a dry/ usual weight. No evident muscle wasting or fat loss present. Note weight is - 5.9kg since admit 2/2 diuresis with -9.2L net I/Os. Pt denied low Na diet education during visit today d/t feeling nauseous, however, she did accept printed materials provided by RD. Recommendation: Continue cardiac diet as ordered encouraging good PO intake efforts at all meals /snacks and offering Boost supplement if pt is not consuming at least 50% of meals Intervention / Plan: Continue to assess adequacy/tolerance of PO intakes Monitor GI symptoms, wt trends, labs, meds Encouraged good PO intakes efforts with all meals/snacks; provided Boost for pt to try and encouraged consuming as a supplement to meals Nutrition Diagnosis: Inadequate protein-energy intake Etiology: reduced appetite, nausea Signs & Symptoms: diet recall/pt report, meal documentation Goals: Patient to consume >75% of meals Time Frame: Within [address], LD *[phone] * Unique Patel RN - 09/15/2018 11:39 AM CDT 09/15/18 1109 Cardiac Rehab Activity Distance Walked (feet) 100 ft BP Pre-activity 122/59 BP Post-activity 139/76 HR Pre-activity 84 bpm HR Post-activity 76 SaO2 Pre-activity 100 % SaO2 Post-activity 98 O2 Device Nasal Cannula O2 (lpm) 4 LPM Comments Pt initially declining ambulation and requesting I come back at 10:35. Returned at 1035 and pt reporting that she felt her heart pounding and that she was fatigued. Pt agreeable to ambulate. Pt ambulated 50 feet with a wheeled walker and pt requesting to sit down. Pt reporting SOA and dizziness. BP 139/76 , 02 sat 95%. Pt rested. Pt then requesting to return to room. Additional staff member present for walk back to room. Once in chair, pt reporting nausea, chest heaviness and fatigue. RN notifed of pt's symptoms. Mobility Progressive Mobility Level 8 Level of Assistance Assist X1 (2nd person present for walk back to room) Assistive Device Walker Time Tolerated 0-10 minutes Activity Limited By Fatigue;Nausea;Patient request to stop * Laine De La Cruz - 09/15/2018 11:18 AM CDT OCCUPATIONAL THERAPY NOTE Spoke with RN and attempted to see patient for OT tx session at this time. Pt c/ o nausea and fatigue and declined participation in OT session after education. RN addressing nausea. Will hold, continue to follow, and re-attempt to see as able to progress with OT plan of care. Therapist: Laine De La Cruz OTR/Juan Manuel [id number] Date: 09/15/2018 * Gonzalez French RT - 09/15/2018 8:38 AM CDT RT Adult Assessment Note NAME:Ashlee Hoyt :1950 AGE: 68 y.o. ADMISSION DATE: 09/08/2018 DAYS ADMITTED: LOS: 7 days RT Treatment Plan: Protocol Plan: Procedures IPPB: Place a nursing order for "IS Q1h While Awake" for any of Lung Expansion indicators Oxygen/Humidity: O2 to keep SpO2 > 92% Monitoring: Pulse oximetry BID & PRN Comment: 2L home O2. Alb PRN home use. CESAR w/ CPAP. Additional Comments: Impressions of the patient: doing IS and PEP every hour. Good effort. Currently resting on 4L nasal cannula. Will continue to titrate down to 2L baseline. Vital Signs: Pulse: Pulse: 73 RR: Respirations: 16 PER MINUTE SpO2: SpO2: 94 % O2 Device: $$ O2 Device: High Flow Nasal Cannula Liter Flow: O2 Liter Flow: 4 lpm O2%: Breath Sounds: Respiratory Effort: Respiratory Effort: Non-Labored * Ginette Moffett PA-C - 09/15/2018 7:32 AM CDT CARDIOTHORACIC SURGERY DAILY PROGRESS NOTE PROCEDURE: 09/08/18 - VALVULOPLASTY MITRAL VALVE WITH CARDIOPULMONARY BYPASS AND PROSTHETIC RIN (CPT) TISSUE ABLATION AND RECONSTRUCTION OF ATRIA WITH CARDIOPULMONARY BYPASS - EXTENSIVE: 90207 (CPT) POD #: 7 SUBJECTIVE: Feels much better than yesterday. Overnight events: No acute overnight events. ASSESSMENT: Principal Problem: S/P mitral valve repair Active Problems: Atrial fibrillation (HCC) Chronic diastolic heart failure (HCC) HTN (hypertension) Hyperlipemia Morbid obesity (HCC) Acute on chronic diastolic CHF (congestive heart failure), NYHA class 3 (HCC) H/O tricuspid valve annuloplasty S/P Maze operation for atrial fibrillation Acute on chronic respiratory failure with hypoxia (HCC) PLAN: Neuro Pain controlled on current regimen. Continue PRN tramadol, Tylenol. CV Atrial fibrillation rates 60s-80s. SBP 110s-130s. Continue Cardura, Maxzide, amlodipine, Coreg. Cont ASA 81 mg and statin. Intra op ARNAUD LVEF normal. Continue coumadin for afib. INR 1.7. Resp CXR: lungs expanded, improving pulmonary vascular congestion, persistent bibasilar atelectasis and bilateral effusions. On 3-4L NC. Wean O2. Wears 2L home O2. Continue home CPAP qHS. Continue IS, aggressive pulm toilet. IPPB. Renal JOSE F on CKD. Baseline Scr 1.25-->1.39-->1.85-->1.69-->1.59-->1.41--> 1.33. Continue maxzide. UOP 4.2L/24hr. Lasix 40mg IV BID. Na+ 133-->134. FW restriction. Net -6kg/admission. GI - Cardiac diet, continue post op bowel regimen. Last BM 09/14. ID Afebrile. WBC 7.2 Heme INR 1.3-->2.2-->2.9-->2.0-->1.7-->1.7, Patient received 2 doses of 5mg , held x 2 days, restarted 09/13 at 2mg-->3mg 09/14. Holding V/[employer] Eliquis (for atrial fib). FEN Hgb A1c 5.6 %. FSBS stable, D/C SSI. Activity PT/OT consulted. Recommending inpatient setting at discharge. Considering [facility]. Will d/w social work. Walked 200' yesterday. Increase activity as able. Disposition - Continue pulmonary toilet, wean O2 as able. Cont Coumadin. Increase activity. Discuss w staff. OBJECTIVE: Vitals: 09/14/18 2356 09/15/18 0000 09/15/18 0400 09/15/18 0600 BP: 132/82 138/72 Pulse: 69 77 81 Temp: 37.2 C (99 F) 36.6 C (97.9 F) SpO2: 98% 96% 96% Weight: 108.9 kg (240 lb) Height: Physical Exam: General: A&O x 3 Cardiovascular: Irregularly irregular, no murmur Respiratory: LS CTA jocelyn, diminished in bases GI: obese, soft, NT, +BS Extremities: trace bilateral LE edema Incisions: clean, dry, intact, sternum stable Prophylaxis Review: Lines: No Antibiotic Usage: No VTE: Pharmacological prophylaxis; Warfarin and Mechanical prophylaxis; Sequential compression device Urinary Catheter: No Pertinent Meds: Taking Reason for Not Taking 1. Aspirin yes 2. B-Uziel yes 3. Statin yes 4. JEANETTE/ARB no EF > 40% LABS: Lab Results Component Value Date/Time WBC 7.2 09/15/2018 04:07 AM HGB 9.0 (L) 09/15/2018 04:07 AM HCT 27.0 (L) 09/15/2018 04:07 AM PLTCT 202 09/15/2018 04:07 AM Lab Results Component Value Date/Time NA 134 (L) 09/15/2018 04:07 AM K 3.9 09/15/2018 04:07 AM CL 93 (L) 09/15/2018 04:07 AM CO2 32 (H) 09/15/2018 04:07 AM BUN 46 (H) 09/15/2018 04:07 AM CR 1.33 (H) 09/15/2018 04:07 AM GLU 104 (H) 09/15/2018 04:07 AM Lab Results Component Value Date MG 2.1 09/12/2018 Lab Results Component Value Date PO4 3.4 09/11/2018 Lab Results Component Value Date GLUPOC 133 (H) 09/14/2018 GLUPOC 116 (H) 09/14/2018 GLUPOC 124 (H) 09/13/2018 GLUPOC 113 (H) 09/13/2018 GLUPOC 150 (H) 09/12/2018 GLUPOC 105 (H) 09/12/2018 GLUPOC 91 09/12/2018 GLUPOC 99 09/12/2018 Ginette Moffett PA-C [id number] Associated attestation - David River MD - 09/15/2018 1:11 PM CDT Better today. INR Therapeutic. Looking at group home options. * Brionna Giang RN - 09/15/2018 5:32 AM CDT Pt rested most of night. C/o minimal pain. Afib on tele. Vital signs per trend. Incision approximated with no drainage. UOP adequate. +BM. Denies needs. Will cont to monitor. * Anjali Hampton RN - 09/14/2018 6:57 PM CDT I have reviewed the notes, assessments, and/or procedures performed by Smiley Mendes, and concur with her documentation unless otherwise noted. * Anjali Hampton RN - 09/14/2018 4:44 PM CDT Assessments complete and documented per flowsheet. Alert in AM/PM - lethargic midday following tramadol admin, improved in afternoon/evening. Ox4. Requiring 3lpm O2 via NC, 4lpm c ambulation. VSS. Afib (80s) on tele. Mild to moderate pain adequately managed with PRN tylenol and tramadol. Surgical incisions clean, dry, approximated, and open to air c sutures to CTEs. Ambulating in [place] with assist x1 and a walker, limited by fatigue, fall bundle in place. UOA, last BM 09/11 - passing flatus. Pt participating in and compliant c mgmt of 1L FWR. Call light within reach, will continue to monitor until transferring care to night baker RN. * Laine De La Cruz - 09/14/2018 2:15 PM CDT OCCUPATIONAL THERAPY ASSESSMENT NOTE Patient Name: Ashlee Hoyt Room/Bed: [facility]/ Admitting Diagnosis: Mitral regurgitation [I34.0] Atrial fibrillation (HCC) [I48.91] Past Medical History: Diagnosis Date Acute on chronic diastolic CHF (congestive heart failure), NYHA class 3 (HCC ) Atrial fibrillation (HCC) Dyspnea Gastrointestinal disorder diverticulosis HTN (hypertension) Hx of acute respiratory failure 05/2018 2 liters NC continuously Hyperlipemia Mitral regurgitation Morbid obesity (HCC) Sleep apnea CPAP use Mobility Progressive Mobility Level: Walk in room Distance Walked (feet): 30 ft Level of Assistance: Assist X1 Assistive Device: Walker Time Tolerated: 0-10 minutes Activity Limited By: Fatigue Subjective Pertinent Dx per Physician: History of A-fib, acute on chronic diastolic heart failure, chronic respiratory failure, and mitral regurgitation; s/p mitral valve repair on 09/08/18. Precautions: Standard;Falls;Sternal Precautions;O2 Requirement Pain / Complaints: Patient agrees to participate in therapy;Patient premedicated Pain Location: Incisional (Does not rate; Controlled at rest) Comments: Patient sleeping in recliner upon therapist arrival and positioned for comfort in chair with needs met and precautions in place at end of session. Daughter entering room. Objective Psychosocial Status: Willing and Cooperative to Participate Persons Present: Family Home Living Type of Home: House Home Layout: Multi-level Bathroom Shower / Tub: Tub/Shower Unit;Walk-in Shower Bathroom Toilet: Standard Home Equipment: (None) Comment: Was bathing in tub prior to admission. Has to navigate stairs to walk- in shower. Prior Function Level Of [place]: Independent with ADLs and functional transfers; Independent with homemaking w/ ambulation Lives With: Spouse Receives Help From: Spouse (IADLs) Homemaking Tasks: Laundry Homemaking Assist: (Spouse provides transport; Has cleaning lady) Vocational: Retired Other Function Comments: Pt independent with in-home distances prior to admission, but reports, "I didn't move much." Pt denies hx of falls. Reports functional decline/ increased fatigue since March. Spouse works as ethnic origins teacher and project manager/team coach and is not home 20/06. ADL's Where Assessed: In Bathroom;Standing at Sink;Chair Eating Assist: Independent Eating Deficits: No Assist Needed LE Dressing Assist: Modified Independent (demo of crossover technique for socks only ) LE Dressing Deficits: Setup;Verbal Cueing;Supervision/Safety;Increased Time To Complete Toileting Assist: Minimal Assist Toileting Deficits: Setup;Perineal Hygiene (Pt managed gown only- not wearing brief) Functional Transfer Assist: Minimal Assist (with roller walker) Functional Transfer Deficits: Setup;Verbal Cueing;Supervision/Safety;Increased Time to Complete;Toilet Transfer Comment: ADLs per above. Pt required cues to avoid pushing through UEs during functional sit <> stand transfers. Pt on 3L O2 NC upon therapist arrival and 4L upon therapist exit; SpO2 92% on 4L NC. Activity Tolerance Endurance: 4/5 Tolerates 30+ Minutes Exercise W/O Fatigue Sitting Balance: 4/5 Moves/Returns Trunkal Midpoint 1-2 Inches in Multiple Planes Cognition Overall Cognitive Status: WFL to Adequately Complete Self Care Tasks Safely Comments: Decreased alertness; Pt's R eye closing during seated-level conversation. Pt reports feeling tired and nausea earlier this morning. Spoke with RN. UE AROM Overall BUE AROM WNL: Yes Coordination: Adequate to Complete ADLs UE Strength / Tone Overall Strength / Tone: WFL Able to Perform ADL Tasks Education Persons Educated: Patient Teaching Methods: Verbal Instruction;Demonstration Patient Response: Verbalized and Demo Understanding;More Instruction Required Topics: Role of OT, Goals for Therapy;ADL Compensatory Techniques (Sternal precautions) Goal Formulation: With Patient/Family Assessment Assessment: Decreased ADL Status;Decreased Endurance;Decreased Self-Care Trans; Decreased High-Level ADLs Prognosis: Good;w/Cont OT s/p Acute Discharge Goal Formulation: Patient AM-PAC 6 Clicks Basic Mobility Inpatient Turning from your back to your side while in a flat bed without using bed rails : A Little Moving from lying on your back to sitting on the side of a flatbed without using bedrails : A Lot Moving to and from a bed to a chair (including a wheelchair): A Little Standing up from a chair using your arms (e.g. wheelchair, or bedside chair): A Little To walk in hospital room: A Little Climbing 3-5 steps with a railing: A Lot Raw Score: 16 Standardized (T-scale) Score: 38.32 Basic Mobility CMS 0-100%: 47.12 CMS G Code Modifier for Basic Mobility: CK AM-PAC 6 Clicks Daily Activity Inpatient Putting on and taking off regular lower body clothes?: A Little Bathing (Including washing, rinsing, drying): A Little Toileting, which includes using toilet, bedpan, or urinal: A Little Putting on and taking off regular upper body clothing: A Little Taking care of personal grooming such as brushing teeth: A Little Eating meals?: None Daily Activity Raw Score: 19 Standardized (t-scale) score: 40.22 CMS 0-100% Score: 42.8 CMS G Code Modifier: CK Plan OT Frequency: 5x/week OT Plan for Next Visit: Functional sit <> stands with sternal precautions maintained; Billie care; Pants; Log roll ADL Goals Patient Will Perform LE Dressing: w/ Stand By Assist (maintaining precautions) Patient Will Perform Toileting: w/ Stand By Assist (maintaining precautions) Functional Transfer Goals Pt Will Perform All Functional Transfers: w/ Stand By Assist G-Codes: Self-care [id number] Current Status: 40-59% Impairment [id number] Goal Status: 1-19% Impairment Based on above evaluation and clinical judgment. OT Discharge Recommendations OT Discharge Recommendations: Inpatient Setting (at current functional level) Equipment Recommendations: Likely None; Ongoing assessment needed Additional Information: Pt limited primarily by lethargy, SOA, and acute medical status, in addition to need to maintain sternal precautions. Will continue to follow to provide intervention as indicated and ongoing discharge recommendations as appropriate during acute stay. Therapist: Laine De La Cruz OTR/Juan Manuel [id number] Date: 09/14/2018 * Cristina Orantes, PT - 09/14/2018 10:46 AM CDT PHYSICAL THERAPY ASSESSMENT MOBILITY: Mobility Progressive Mobility Level: Walk in hallway Distance Walked (feet): 200 ft (100' x2 bouts with rest break) Level of Assistance: Assist X1 Assistive Device: Walker Time Tolerated: 0-10 minutes Activity Limited By: Nausea;Fatigue SUBJECTIVE: Subjective Significant hospital events: History of A-fib, acute on chronic diastolic heart failure, chronic respiratory failure, and mitral regurgitation; s/p mitral valve repair on 09/08/18. Mental / Cognitive Status: Alert;Oriented;Cooperative;Follows Commands (soft- spoken, keeps eyes closed majority of session) Persons Present: Family Pain: Patient complains of pain;Patient does not rate pain;Before activity; During activity Pain Location: (Nausea) Pain Interventions: Patient pre-medicated;Patient agrees to participate in therapy with modifications to session;Treatment altered to patient's pain tolerance;Nursing staff notified of patient's pain level (Pain varies with mobility; appears to decrease with rest) Comments: Receiving 3L O2 via NC upon arrival. Per discussion with cardiac clinical rehabilitation aide, patient with desaturation requiring titration to 4L to maintain O2 saturations 90% Precautions: Sternal Precautions Comments: Patient is seated in chair upon arrival Comments: Family reports gradual worsening of mobility with incresaed fatigue since March 2018. Patient has been staying on main level and occasionaly requiring family assistance for iADLs Ambulation Assist: Independent Mobility in Community without Device Patient Owned Equipment: None Home Situation: Lives with Family Type of Home: House Entry Stairs: 1-2 Stairs (2) In-Home Stairs: Able to Live on One Level;1-2 Flights of Stairs;Rail on 1 Side ( to basement) Comments: Oxygen requirement at baseline: 2L via NC during the day BED MOBILITY/TRANSFERS: Bed Mobility/Transfers Transfer Type: Sit to/from Stand Transfer: Assistance Level: To/From;Bed Side Chair;Minimal Assist (and hallway bench) Transfer: Assistive Device: Roller Walker Transfers: Type Of Assistance: Verbal Cues;To Maintain Precautions;For Balance End Of Activity Status: Up in Chair;Nursing Notified;Instructed Patient to Request Assist with Mobility;Instructed Patient to Use Call Light GAIT: Gait Gait Distance: 100 feet (x2 bouts with 5 minute seated rest break) Gait: Assistance Level: Minimal Assist;Safety Considerations (periods of contact guard assistance) Gait: Assistive Device: Roller Walker Gait: Descriptors: Pace: Slow;Variable step length;Swing-Through Gait (cues to ligthen human resources records clerk on walker to aide in UE tension) O2 saturations at rest: 96% on 3L O2, During activity 92% on 4L, decreased to 3L during seated rest break and tolerated 3L for last gait bout with O2 saturations >90%. Activity Limited By: Nausea;Complaint of Fatigue EDUCATION: Education Persons Educated: Patient/Family Patient Barriers To Learning: Pain Interventions: Repetition of Instructions;Family Education Teaching Methods: Verbal Instruction Patient Response: Verbalized Understanding;More Instruction Required Topics: Plan/Goals of PT Interventions;Mobility Progression;Precautions; Importance of Increasing Activity;Use of Assistive Device/Orthosis;Recommend Continued Therapy;Therapy Schedule ASSESSMENT/PROGRESS: Assessment/Progress Impaired Mobility Due To: Decreased Activity Tolerance;Pain;Deconditioning Assessment/Progress: Should Improve w/ Continued PT Comments: Expect patient will benefit from inpatient setting to improve independence and safety with functional mobility, entering/exiting home, and mobility-related ADLs AM-PAC 6 Clicks Basic Mobility Inpatient Turning from your back to your side while in a flat bed without using bed rails : A Little Moving from lying on your back to sitting on the side of a flatbed without using bedrails : A Lot Moving to and from a bed to a chair (including a wheelchair): A Little Standing up from a chair using your arms (e.g. wheelchair, or bedside chair): A Little To walk in hospital room: A Little Climbing 3-5 steps with a railing: A Lot Raw Score: 16 Standardized (T-scale) Score: 38.32 Basic Mobility CMS 0-100%: 47.12 [facility] G Code Modifier for Basic Mobility: CK G-Codes: Mobility G8978 Current Status: 40-59% Impairment G8979 Goal Status: 20-39% Impairment Based on above evaluation and clinical judgment. GOALS: Goals Goal Formulation: With Patient/Family Time For Goal Achievement: 5 days Pt Will Go Supine To/From Sit: w/ Stand By Assist Pt Will Transfer Sit to Stand: w/ Stand By Assist Pt Will Ambulate: Greater than 200 Feet, w/ Walker, w/ Stand By Assist Pt Will Go Up / Down Stairs: 1-2 Stairs, w/ Stand By Assist PLAN: Plan Treatment Interventions: Mobility Training;Strengthening;Endurance Training; Balance Activities;Family Training Plan Frequency: 5 Days per Week PT Plan for Next Visit: progress gait distance and activity tolerance; evaluate bed mobility next session RECOMMENDATIONS: PT Discharge Recommendations PT Discharge Recommendations: Inpatient Setting;[facility] Equipment Recommendations: Roller Walker (early recommendation) Therapist: Cristina Orantes PT, DPT Date: 09/14/2018 * Unique Patel RN - 09/14/2018 8:38 AM CDT 09/14/18 0831 Cardiac Rehab Activity Distance Walked (feet) 200 ft BP Pre-activity (see v/s flowsheet. BP just taken prior to my arrival) BP Post-activity 147/87 HR Pre-activity 89 bpm HR Post-activity 88 SaO2 Pre-activity 97 % SaO2 Post-activity 95 O2 Device Nasal Cannula O2 (lpm) (3-4 L NC) Comments Pt provided with demonstration of standing while preserving sternal precautions. Pt stood with assistance of 1. Pt ambulated with a wheeled walker. 30 feet into walk, pt reporting dizziness. Attempted to have pt sit and rest and pt reporting the dizziness went away with a standing rest break. Pt then continued to ambulate. Pt stopped for a prolonged sitting rest break. Pt reporting shoulder blade pain. Pt reporting SOA. 02 sat 88% on 3 LNC. Pt placed on 4 LNC and 02 sat increased to 95%. Pt then resumed ambulation on 4 L NC. Once back to chair in room, pt placed on 3 LNC and 02 sat remained 95% on 3 LNC at rest. Rn notified of dizziness, pain, and 02 requirement Mobility Progressive Mobility Level 8 Level of Assistance Assist X1 (2nd staff member present) Assistive Device Walker Time Tolerated 0-10 minutes Activity Limited By Fatigue;Shortness of air * Laine Mosher PA-C - 09/14/2018 7:15 AM CDT CARDIOTHORACIC SURGERY DAILY PROGRESS NOTE PROCEDURE: VALVULOPLASTY MITRAL VALVE WITH CARDIOPULMONARY BYPASS AND PROSTHETIC RIN (CPT) TISSUE ABLATION AND RECONSTRUCTION OF ATRIA WITH CARDIOPULMONARY BYPASS - EXTENSIVE: 86459 (CPT) POD #: 6 SUBJECTIVE: Overnight events: No acute overnight events. ASSESSMENT: Principal Problem: S/P mitral valve repair Active Problems: Atrial fibrillation (HCC) Chronic diastolic heart failure (HCC) HTN (hypertension) Hyperlipemia Morbid obesity (HCC) Acute on chronic diastolic CHF (congestive heart failure), NYHA class 3 (HCC) H/O tricuspid valve annuloplasty S/P Maze operation for atrial fibrillation Acute on chronic respiratory failure with hypoxia (HCC) PLAN: Neuro Pain controlled on current regimen. Continue PRN tramadol, Tylenol. CV Atrial fibrillation rates 70s-80s. SBP 110s-130s. Continue Cardura, Maxzide, amlodipine, Coreg. Cont ASA 81 mg and statin. Intra op ARNAUD LVEF normal. Resp 2 view CXR yesterday: lungs expanded, improving pulmonary vascular congestion, persistent bibasilar atelectasis and bilateral effusions. On 3-4L NC. Wean O2. Wears 2L home O2. Continue home CPAP qHS. Continue IS, aggressive pulm toilet. IPPB. Renal JOSE F on CKD. Baseline Scr 1.25-->1.39-->1.85-->1.69-->1.59-->1.41--> pending. Continue maxzide. UOP 2.7L/24hr. Lasix 40mg IV BID. Na+ 133-->pending. FW restriction. GI - Cardiac diet, continue post op bowel regimen. Last BM 09/11. ID Afebrile. Heme INR 1.3-->2.2-->2.9-->2.0-->1.7, Patient received 2 doses of 5mg, held x 2 days, restarted last night at 2mg. Increase to 3mg tonight. Holding V/[employer] Eliquis (for atrial fib). FEN Hgb A1c 5.6 %. FSBS stable, D/C SSI. Activity PT/OT consulted. Walked 150' yesterday. Increase activity. Disposition - Continue pulmonary toilet and diuresis, wean O2 as able. Increase Coumadin. Increase activity. OBJECTIVE: Vitals: 09/13/18 2155 09/13/18 2300 09/14/18 0330 09/14/18 0406 BP: 136/78 122/70 115/66 Pulse: 78 84 70 74 Temp: 36.7 C (98.1 F) 36.7 C (98.1 F) SpO2: 94% 94% 93% Weight: Height: Physical Exam: General: A&O x 3 Cardiovascular: Irregularly irregular rate, no murmur Respiratory: LS CTA jocelyn, diminished in bases GI: obese, soft, NT, +BS Extremities: 1+ bilateral LE edema Incisions: clean, dry, intact, sternum stable Prophylaxis Review: Lines: No Antibiotic Usage: No VTE: Pharmacological prophylaxis; Warfarin and Mechanical prophylaxis; Sequential compression device Urinary Catheter: No Pertinent Meds: Taking Reason for Not Taking 1. Aspirin yes 2. B-Uziel yes 3. Statin yes 4. JEANETTE/ARB no EF > 40% LABS: Lab Results Component Value Date/Time WBC 6.8 09/13/2018 04:45 AM HGB 8.8 (L) 09/13/2018 04:45 AM HCT 26.5 (L) 09/13/2018 04:45 AM PLTCT 163 09/13/2018 04:45 AM Lab Results Component Value Date/Time NA 133 (L) 09/13/2018 04:45 AM K 4.0 09/13/2018 04:45 AM CL 94 (L) 09/13/2018 04:45 AM CO2 31 (H) 09/13/2018 04:45 AM BUN 47 (H) 09/13/2018 04:45 AM CR 1.41 (H) 09/13/2018 04:45 AM GLU 105 (H) 09/13/2018 04:45 AM Lab Results Component Value Date MG 2.1 09/12/2018 Lab Results Component Value Date PO4 3.4 09/11/2018 Lab Results Component Value Date GLUPOC 124 (H) 09/13/2018 GLUPOC 113 (H) 09/13/2018 GLUPOC 150 (H) 09/12/2018 GLUPOC 105 (H) 09/12/2018 GLUPOC 91 09/12/2018 GLUPOC 99 09/12/2018 GLUPOC 94 09/12/2018 GLUPOC 132 (H) 09/11/2018 Laine Mosher PA-C [id number] Associated attestation - David River MD - 09/14/2018 8:27 AM CDT Slow improvement. May need snf * Kirsten Lacy, RIMMA - 09/14/2018 7:03 AM CDT Assumed care at 1900. No acute events overnight. Assessments completed and documented per flowsheet. A&Ox4, VSS per pt trend, Tolerating 4L NC and wore CPAP at night, denies SOA. Afib on tele overnight. Pt has chronic Afib. Pain well controlled via current regimen. Surgical incisions CDI. BM 09/11/18, Adequate UOP overnight. HFR bundle in place. Pt uses call light appropriately. No other needs voiced at this time. Call light within reach. Will continue to monitor. * Anjali Hampton RN - 09/13/2018 4:36 PM CDT Assessments complete and documented per flowsheet. A/Ox4. VSS. Requiring 4lpm O2 via NC. Afib (80s) on tele. Mild to moderate pain adequately managed with PRN tramadol. Surgical incisions clean, dry, approximated, and open to air. Ambulating in giang with assist x1 and a walker, fall bundle in place. UOA, last BM 09/11. Call light within reach, will continue to monitor until transferring care to night baker RN. * Unique Patel RN - 09/13/2018 3:34 PM CDT 09/13/18 1532 Cardiac Rehab Activity Distance Walked (feet) 150 ft BP Pre-activity 147/76 BP Post-activity 149/69 HR Pre-activity 80 bpm HR Post-activity 72 SaO2 Pre-activity 95 % SaO2 Post-activity 94 O2 Device Nasal Cannula O2 (lpm) 4 LPM Comments Pt ambulated with a wheeled walker. Pt reporting she felt weaker this afternoon. Pt requesting to return to room. Pt then requesting pain medication. RN notified of pain and weakness Mobility Progressive Mobility Level 8 Level of Assistance Assist X1 Assistive Device Walker Time Tolerated 0-10 minutes Activity Limited By Patient request to stop;Weakness * Tommy Sanchez RT - 09/13/2018 1:21 PM CDT RT Adult Assessment Note NAME:Ashlee Hoyt :1950 AGE: 68 y.o. ADMISSION DATE: 09/08/2018 DAYS ADMITTED: LOS: 5 days RT Treatment Plan: Protocol Plan: Procedures PEP Therapy: Place a nursing order for "IS Q1h While Awake" for any of Lung Expansion indicators IPPB: Q4h IPPB While Awake Oxygen/Humidity: O2 to keep SpO2 > 92% Monitoring: Pulse oximetry BID & PRN Additional Comments: Impressions of the patient: pt. Resting comfortably Vital Signs: Pulse: Pulse: 67 RR: Respirations: 18 PER MINUTE SpO2: SpO2: 97 % O2 Device: Liter Flow: O2 Liter Flow: 4 lpm O2%: Breath Sounds: Respiratory Effort: * Kirsten Lacy RN - 09/13/2018 7:50 AM CDT Assumed care at 1900. No acute events overnight. Assessments completed and documented per flowsheet. A&Ox4, VSS per pt trend (except see below about O2 Sats) Pt uses 2L of O2 at home. Needing 3-5L via NC + wore CPAP w/ 4L while asleep. O2 Sats fluctuating 90-94%. RT notified, and came to bedside to assess, and adjust O2 as needed. Pt continued to fluctuate between 90-94% w/ CPAP the rest of shift. SOA w/ activity. Afib on tele overnight (chronic). Pain well controlled via current regimen. Surgical incisions CDI. BM 09/11/18, Adequate UOP overnight. HFR bundle in place. Up x 1 w/ gait belt. Walker in room if needed. Pt uses call light appropriately. No other needs voiced at this time. Call light within reach. Will continue to monitor. * Laine Mosher PA-C - 09/13/2018 7:43 AM CDT CARDIOTHORACIC SURGERY DAILY PROGRESS NOTE PROCEDURE: VALVULOPLASTY MITRAL VALVE WITH CARDIOPULMONARY BYPASS AND PROSTHETIC RIN (CPT) TISSUE ABLATION AND RECONSTRUCTION OF ATRIA WITH CARDIOPULMONARY BYPASS - EXTENSIVE: 79951 (CPT) POD #: 5 SUBJECTIVE: Overnight events: Transferred to floor from CTI. No acute overnight events. ASSESSMENT: Principal Problem: S/P mitral valve repair Active Problems: Atrial fibrillation (HCC) Chronic diastolic heart failure (HCC) HTN (hypertension) Hyperlipemia Morbid obesity (HCC) Acute on chronic diastolic CHF (congestive heart failure), NYHA class 3 (HCC) H/O tricuspid valve annuloplasty S/P Maze operation for atrial fibrillation Acute on chronic respiratory failure with hypoxia (HCC) PLAN: Neuro Pain controlled on current regimen. Continue PRN tramadol, Tylenol. CV Post-op had times of accelerated junctional 50's with sinus beats. Now atrial fibrillation rates 80s-90s. EC wires capped (atrial wire have been removed -> non-functional). SBP 110s-130s. Continue Cardura, Maxzide, amlodipine , Coreg. Cont ASA 81 mg (hold for plts <80k) and statin. Hold ACEI in the initial post op phase. Intra op ARNAUD LVEF normal. Resp 2 view CXR: lungs expanded, improving pulmonary vascular congestion, persistent bibasilar atelectasis and bilateral effusions. On 4L NC. Wean O2. Wears 2L home O2. Continue home CPAP qHS. Continue IS, aggressive pulm toilet. Add IPPB. Renal JOSE F on CKD. Baseline Scr 1.25-->1.39-->1.85-->1.69-->1.59-->1.41 today. Continue maxzide. UOP 3.4L/24hr. Continue to diurese with Bumex PRN. Na+ 133. FW restriction. GI - Cardiac diet, continue post op bowel regimen. Last BM 09/11. ID Afebrile. WBC 6.8. Heme INR 1.3-->2.2-->2.9-->2.0, Patient received 2 doses of 5mg, on hold since 09/11. Restart tonight at 2mg. Holding V/[employer] Eliquis (for atrial fib). Continue mechanical prophylaxis. FEN If creatinine < 2.0, replace Mg and K per CTS post op protocol. Hgb A1c 5.6 %. FSBS stable, D/C SSI. Activity Patient has not walked much. Consult PT/OT, increase activity. OOBTC, ambulate in halls as tolerated, goal of at least TID. Early cardiac PT/ OT. Disposition - D/C wires, continue pulmonary toilet, wean O2 as able. Restart Coumadin. Increase activity. OBJECTIVE: Vitals: 09/12/18 2300 09/13/18 0058 09/13/18 0335 09/13/18 0359 BP: 111/72 129/64 Pulse: 86 85 Temp: 37.3 C (99.2 F) 37.3 C (99.1 F) SpO2: (!) 90% 92% 94% Weight: 111.6 kg (246 lb) Height: Physical Exam: General: A&O x 3 Cardiovascular: Irregularly irregular rate, no murmur Respiratory: LS CTA jocelyn, diminished in bases GI: soft, NT, +BS Extremities: 1+ bilateral LE edema Incisions: clean, dry, intact, sternum stable Prophylaxis Review: Lines: No Antibiotic Usage: No VTE: Pharmacological prophylaxis; Warfarin and Mechanical prophylaxis; Sequential compression device Urinary Catheter: No Pertinent Meds: Taking Reason for Not Taking 1. Aspirin yes 2. B-Uziel yes 3. Statin yes 4. JEANETTE/ARB no EF > 40% LABS: Lab Results Component Value Date/Time WBC 6.8 09/13/2018 04:45 AM HGB 8.8 (L) 09/13/2018 04:45 AM HCT 26.5 (L) 09/13/2018 04:45 AM PLTCT 163 09/13/2018 04:45 AM Lab Results Component Value Date/Time NA 133 (L) 09/13/2018 04:45 AM K 4.0 09/13/2018 04:45 AM CL 94 (L) 09/13/2018 04:45 AM CO2 31 (H) 09/13/2018 04:45 AM BUN 47 (H) 09/13/2018 04:45 AM CR 1.41 (H) 09/13/2018 04:45 AM GLU 105 (H) 09/13/2018 04:45 AM Lab Results Component Value Date MG 2.1 09/12/2018 Lab Results Component Value Date PO4 3.4 09/11/2018 Lab Results Component Value Date GLUPOC 150 (H) 09/12/2018 GLUPOC 105 (H) 09/12/2018 GLUPOC 91 09/12/2018 GLUPOC 99 09/12/2018 GLUPOC 94 09/12/2018 GLUPOC 132 (H) 09/11/2018 GLUPOC 99 09/11/2018 GLUPOC 105 (H) 09/11/2018 Laine Mosher PA-C [id number] * Nilton Masterson MD - 09/12/2018 4:30 PM CDT Critical Care Progress Note Today's Date: 09/12/2018 Name: Ashlee Hoyt Admission Date: 09/08/2018 LOS: 4 days Assessment/Plan: Principal Problem: S/P mitral valve repair Active Problems: Atrial fibrillation (HCC) Chronic diastolic heart failure (HCC) HTN (hypertension) Hyperlipemia Morbid obesity (HCC) Acute on chronic diastolic CHF (congestive heart failure), NYHA class 3 (HCC) H/O tricuspid valve annuloplasty S/P Maze operation for atrial fibrillation Acute on chronic respiratory failure with hypoxia (HCC) Neuro: Pain well controlled. Monitor. Cardiac: Hemodynamics improving. Uptitrate antihypertensives. No slow rhythm overnight. Will add back low dose carvedilol. Respiratory: CXR improving. Chronic O2 requirement. Diuresis in favor of lungs today. Cont NIV as needed and nocturnally. GI: Advance diet as tolerated. GI ppx. Continue bowel regimen, ensure regular BM. Heme: INR with large increase. Will hold warfarin agian for tonight. Monitor. ID: No infectious concerns. Monitor. Renal: Watch BMP. Creat looks to have peaked. Bumex today in favor of lungs. FEN:Electrolyte goals while in ICU: Mg >2.0, iCal > 1.0, K+ >4.0 mEq/L. Insulin gtt per Modified [facility]al[facility] Protocol. Activity: Advance activity as tolerated. Early cardiac PT/OT. Dispo: Improving. Okay for telemetry. __ Subjective: Ashlee Hoyt is a 68 y.o. female. Overnight Events: Stable night. Objective: Medications: Scheduled Meds: amLODIPine (NORVASC) tablet 10 mg 10 mg Oral QDAY aspirin EC tablet 81 mg 81 mg Oral QDAY atorvastatin (LIPITOR) tablet 40 mg 40 mg Oral QDAY carvedilol (COREG) tablet 3.125 mg 3.125 mg Oral BID doxazosin (CARDURA) tablet 2 mg 2 mg Oral QDAY insulin aspart U-100 (NOVOLOG FLEXPEN) injection PEN 0-14 Units 0-14 Units Subcutaneous 5 X Day polyethylene glycol 3350 (MIRALAX) packet 17 g 1 packet Oral BID senna/docusate (SENOKOT-S) tablet 2 tablet 2 tablet Oral BID triamterene-hydrochlorothiazide (MAXZIDE) 75-50 mg tablet 1 tablet 1 tablet Oral QDAY Continuous Infusions: PRN and Respiratory Meds:[START ON 09/13/2018] acetaminophen Q6H PRN OR [ START ON 09/13/2018] acetaminophen Q6H PRN, alum/mag hydroxide/simeth Q4H PRN, bisacodyl QDAY PRN, hydrALAZINE Q6H PRN, metoclopramide (REGLAN) IV Q6H PRN, milk of magnesia (CONC) QDAY PRN, ondansetron Q6H PRN OR ondansetron (ZOFRAN ) IV Q6H PRN, potassium chloride SR PRN OR potassium chloride PRN OR potassium chloride in water PRN, traMADol Q6H PRN Vital Signs: Last Filed Vital Signs: 24 Hour Range BP: 134/72 (09/12 1520) Temp: 37.2 C (98.9 F) (09/12 1520) Pulse: 88 (09/12 1610) Respirations: 20 PER MINUTE (09/12 152) SpO2: 92 % (09/12 1520) O2 Delivery: High Flow Nasal Cannula (09/12 152) Weight: 108.3 kg (238 lb 12.8 oz) (09/12 06) BP: (111-147)/(57-79) Temp: [37.2 C (98.9 F)-37.4 C (99.3 F)] Pulse: [82-102] Respirations: [16 PER MINUTE-34 PER MINUTE] SpO2: [91 %-99 %] O2 Delivery: High Flow Nasal Cannula Intensity Pain Scale (Self Report): (not recorded) Vitals: 09/10/18 0600 09/11/18 0600 09/12/18 0600 Weight: 123.8 kg (273 lb) 118.1 kg (260 lb 5.8 oz) 108.3 kg (238 lb 12.8 oz) Intake/Output Summary (Last 24 hours) at 09/12/18 1915 Last data filed at 09/12/18 1700 Gross per 24 hour Intake 840 ml Output 3150 ml Net -2310 ml Physical Exam: General: Alert, cooperative, no distress, appears stated age Lungs: DIminished bilaterally Heart: Junctional to NSR rhythm Abdomen: Soft, non-tender. Bowel sounds normal. No masses. No organomegaly. Extremities: Edema present Lab Review: 24-hour labs: Results for orders placed or performed during the hospital encounter of (from the past 24 hour(s)) POC GLUCOSE Collection Time: 09/11/18 9:18 PM Result Value Ref Range Glucose, POC 132 (H) 70 - 100 MG/DL CBC Collection Time: 09/12/18 3:30 AM Result Value Ref Range White Blood Cells 7.6 4.5 - 11.0 K/UL RBC 2.94 (L) 4.0 - 5.0 M/UL Hemoglobin 9.0 (L) 12.0 - 15.0 GM/DL Hematocrit 26.7 (L) 36 - 45 % MCV 90.8 80 - 100 FL MCH 30.4 26 - 34 PG MCHC 33.5 32.0 - 36.0 G/DL RDW 15.1 (H) 11 - 15 % Platelet Count 131 (L) 150 - 400 K/UL MPV 8.7 7 - 11 FL BASIC METABOLIC PANEL Collection Time: 09/12/18 3:30 AM Result Value Ref Range Sodium 136 (L) 137 - 147 MMOL/L Potassium 4.2 3.5 - 5.1 MMOL/L Chloride 97 (L) 98 - 110 MMOL/L CO2 30 21 - 30 MMOL/L Anion Gap 9 3 - 12 Glucose 91 70 - 100 MG/DL Blood Urea Nitrogen 45 (H) 7 - 25 MG/DL Creatinine 1.59 (H) 0.4 - 1.00 MG/DL Calcium 10.2 8.5 - 10.6 MG/DL eGFR Non 32 (L) >60 mL/min eGFR 39 (L) >60 mL/min PROTIME INR (PT) Collection Time: 09/12/18 3:30 AM Result Value Ref Range INR 2.9 (H) 0.8 - 1.2 MAGNESIUM Collection Time: 09/12/18 3:30 AM Result Value Ref Range Magnesium 2.1 1.6 - 2.6 mg/dL POC GLUCOSE Collection Time: 09/12/18 3:44 AM Result Value Ref Range Glucose, POC 94 70 - 100 MG/DL POC GLUCOSE Collection Time: 09/12/18 8:43 AM Result Value Ref Range Glucose, POC 99 70 - 100 MG/DL POC GLUCOSE Collection Time: 09/12/18 12:08 PM Result Value Ref Range Glucose, POC 91 70 - 100 MG/DL POC GLUCOSE Collection Time: 09/12/18 5:23 PM Result Value Ref Range Glucose, POC 105 (H) 70 - 100 MG/DL Point of Care Testing: (Last 24 hours): Glucose: 91 (09/12/18 0330) POC Glucose (Download): (!) 105 (09/12/18 0263) Radiology and Other Diagnostic Procedures Review: Pertinent radiology reviewed. I have seen, examined and reviewed data concerning this patient. I discussed the findings and plan of care with the [facility] ICU team. I spent 45 minutes in critical care time, excluding procedures today. Nilton Masterson MD [employer] Anesthesiology and Critical Care [phone] * Gurjit Diehl RN - 09/12/2018 2:55 PM CDT Pt transferred to [facility] via wheelchair accompanied by staff in stable condition. Report given to Lorena SHANKS, see transfer flowsheet for details. * Marilu Coleman APRN - 09/12/2018 10:26 AM CDT Cardiothoracic Surgery Critical Care Progress Note Ashlee Gambino Jonna Today's Date: 09/12/2018 Admission Date: 09/08/2018 LOS: 4 days POD: 4 Procedure: VALVULOPLASTY MITRAL VALVE WITH CARDIOPULMONARY BYPASS AND PROSTHETIC RIN (CPT) TISSUE ABLATION AND RECONSTRUCTION OF ATRIA WITH CARDIOPULMONARY BYPASS - EXTENSIVE: 11526 (CPT) Principal Problem: S/P mitral valve repair Active Problems: Atrial fibrillation (HCC) Chronic diastolic heart failure (HCC) HTN (hypertension) Hyperlipemia Morbid obesity (HCC) Acute on chronic diastolic CHF (congestive heart failure), NYHA class 3 ([facility]) H/O tricuspid valve annuloplasty S/P Maze operation for atrial fibrillation Acute on chronic respiratory failure with hypoxia ([facility]) Assessment/Plan: Neuro Pain controlled on current regimen. Continue PRN tramadol, Tylenol. CV Post-op had times of accelerated junctional 50's with sinus beats. Now atrial fibrillation rates 80s-100s. EC wires capped (atrial wire have been removed -> non-functional). BP 110s-150s/60s-80s. Continue Cardura, Maxzide, amlodipine. Add Coreg. Cont ASA 81 mg (hold for plts <80k) and statin. Hold ACEI in the initial post op phase. Intra op ARNAUD LVEF normal. Resp Daily CXR bedside interpretation: lungs expanded, improving pulmonary vascular congestion, persistent bibasilar atelectasis. Will review radiology report. SpO2 95% on O2 @ 4L NC. Wean O2. Wears 2L home O2. Continue home CPAP qHS. Continue IS, aggressive pulm toilet. Renal JOSE F on CKD. Baseline Scr 1.25-->1.39-->1.85-->1.69-->1.59 today. Monitor BMP BID. Continue maxzide. UOP 4 L/24hr, net -3.2 L/24hr. Continue to diurese with Bumex PRN. GI - ADAT, continue post op bowel regimen. Last BM 09/11. ID afebrile. No indication for abx. Heme INR 1.3-->2.2-->2.9, continue to hold warfarin tonight (last dose 5mg on 09/10). Holding V/[employer] Eliquis (for atrial fib). Continue mechanical prophylaxis. FEN If creatinine < 2.0, replace Mg and K per CTS post op protocol. Hgb A1c 5.6 %. FSBS 94-132, continue MDCF. Activity OOBTC, ambulate in halls as tolerated, goal of at least TID. Early cardiac PT/OT. Prophylaxis Review: Lines: Yes; Central Line; Indication: Hemodynamic monitoring; Type: Internal jugular - remove Antibiotic Usage: No VTE: Pharmacological prophylaxis; Warfarin and Mechanical prophylaxis; Foot pump Urinary Catheter: Yes; Retain cardoza due to: Need for accurate Intake and Output and Acute renal insufficiency or failure Disposition: Plan as above, This patient is post-cardiac surgery and at risk for life threatening deterioration. Recovering as expected. Anticipate transfer to the floor later today. I have seen, personally fully evaluated, and discussed patient with the critical care attending and cardiothoracic surgeon. The patient is critically ill, I spent 60 minutes (excluding time spent performing procedures) providing and personally directing critical care services hemodynamic monitoring and management, lab and radiology review, medication review and management, fluid and electrolyte management and coordination of care. Marilu Coleman APRN [facility] Intensive Care Pager [phone] 09/12/2018 Subjective: HPI: Ashlee Hoyt is a 68 y.o. female with a history of A. fib with RVR, chronic anticoagulation, acute on chronic diastolic heart failure, hypertension, morbid obesity, hyperlipidemia and respiratory failure. She was hospitalized in May with respiratory failure and wears home O2. She underwent valvuloplasty mitral valve with prosthetic ring with full MAZE with Dr. River. She remains in the ICU with accelerated junctional rhythm with evolving JOSE F, will continue diuretic management and optimize hemodynamics, stay in ICU today. POD2 converted out of JR to AF POD 3 remains AF. Increased O2 requirements overnight, requiring BiPap. POD 4 wean O2, add BB, transfer to floor REVIEW OF SYSTEMS: Constitutional: negative for fevers and chills Respiratory: positive for cough, negative for increased work of breathing or wheezing Cardiovascular: positive for lower extremity edema, negative for chest pain, palpitations Gastrointestinal: positive for decreased appetite, negative for nausea and vomiting Musculoskeletal:negative for muscle weakness Neurological: negative for memory problems and speech problems Objective: Medications: Scheduled Meds: acetaminophen (TYLENOL) tablet 1,000 mg 1,000 mg Oral Q6H* amLODIPine (NORVASC) tablet 10 mg 10 mg Oral QDAY aspirin EC tablet 81 mg 81 mg Oral QDAY atorvastatin (LIPITOR) tablet 40 mg 40 mg Oral QDAY carvedilol (COREG) tablet 3.125 mg 3.125 mg Oral BID doxazosin (CARDURA) tablet 2 mg 2 mg Oral QDAY insulin aspart U-100 (NOVOLOG FLEXPEN) injection PEN 0-14 Units 0-14 Units Subcutaneous 5 X Day polyethylene glycol 3350 (MIRALAX) packet 17 g 1 packet Oral BID senna/docusate (SENOKOT-S) tablet 2 tablet 2 tablet Oral BID triamterene-hydrochlorothiazide (MAXZIDE) 75-50 mg tablet 1 tablet 1 tablet Oral QDAY Continuous Infusions: nitroGLYCERIN 50 mg/D5W 250 mL infusion Stopped (09/09/18 1550) PRN and Respiratory Meds:[START ON 09/13/2018] acetaminophen Q6H PRN OR [ START ON 09/13/2018] acetaminophen Q6H PRN, alum/mag hydroxide/simeth Q4H PRN, bisacodyl QDAY PRN, hydrALAZINE Q6H PRN, lidocaine PF PRN, metoclopramide ( REGLAN) IV Q6H PRN, milk of magnesia (CONC) QDAY PRN, ondansetron Q6H PRN OR* * ondansetron (ZOFRAN) IV Q6H PRN, oxyCODONE Q4H PRN, potassium chloride SR PRN OR potassium chloride PRN OR potassium chloride in water PRN, traMADol Q6H PRN Vital Signs: Last Filed Vital Signs: 24 Hour Range BP: 123/64 (09/12 1000) Temp: 37.4 C (99.3 F) (09/12 0800) Pulse: 97 (09/12 1000) Respirations: 20 PER MINUTE (09/12 1000) SpO2: 94 % (09/12 1000) O2 Delivery: High Flow Nasal Cannula (09/12 1000) SpO2 Pulse: 96 (09/12 1000) BP: (114-155)/(57-83) Temp: [37.2 C (98.9 F)-37.4 C (99.3 F)] Pulse: [82-103] Respirations: [14 PER MINUTE-34 PER MINUTE] SpO2: [90 %-99 %] O2 Delivery: High Flow Nasal Cannula Intensity Pain Scale (Self Report): 0 (09/12/18 1000) Vitals: 09/10/18 0600 09/11/18 0600 09/12/18 0600 Weight: 123.8 kg (273 lb) 118.1 kg (260 lb 5.8 oz) 108.3 kg (238 lb 12.8 oz) Intake/Output Summary: (Last 24 hours) Intake/Output Summary (Last 24 hours) at 09/12/18 1027 Last data filed at 09/12/18 0951 Gross per 24 hour Intake 840 ml Output 3600 ml Net -2760 ml Physical Exam: Neuro: Awake and alert, ANTOINE Cardiovascular: RRR no rub or murmur Respiratory: LS CTA jocelyn - diminished in the bases GI: soft, NT, hypoactive BS Extremities: 1+ BLE Edema Incisions: Sternal incision dressing, dry and intact. No crepitus or sternal instability. Laboratory: LABS: Recent Labs 09/09/18 1545 09/10/18 0150 09/10/18 1210 09/10/18 1720 09/11/18 0320 09/11/18 1610 09/12/18 0330 NA 136* 136* 134* 135* 135* 135* 136* K 4.3 3.8 4.3 4.3 4.1 3.8 4.2 CL 104 104 102 101 100 96* 97* CO2 22 24 26 26 26 31* 30 GAP 10 8 6 8 9 8 9 BUN 29* 30* 34* 35* 38* 41* 45* CR 1.79* 1.85* 1.65* 1.72* 1.69* 1.52* 1.59* GLU 161* 145* 118* 114* 104* 99 91 CA 9.5 9.3 9.9 10.1 10.3 10.5 10.2 MG -- 2.3 -- 2.5 -- 2.1 2.1 PO4 -- -- -- -- -- 3.4 -- Recent Labs 09/10/18 0150 09/11/18 0320 09/12/18 0330 WBC 12.5* 11.9* 7.6 HGB 9.3* 9.3* 9.0* HCT 27.3* 27.8* 26.7* PLTCT 110* 122* 131* INR 1.3* 2.2* 2.9* Estimated Creatinine Clearance: 43.4 mL/min (A) (based on SCr of 1.59 mg/dL (H)) . Vitals: 09/10/18 0600 09/11/18 0600 09/12/18 0600 Weight: 123.8 kg (273 lb) 118.1 kg (260 lb 5.8 oz) 108.3 kg (238 lb 12.8 oz) No results for input(s): PHART, PO2ART in the last 72 hours. Invalid input(s): PC02A Radiology and Other Diagnostic Procedures Review: Reviewed * Gurjit Diehl RN - 09/12/2018 8:30 AM CDT Pt assessment completed per flowsheet. Lines and drains reviewed. Pt is a/o x 4 sitting up in chair. Telemetry is afib 90's, SBP 130's High flow NC down to 4L w/ sats 90-95%. Pt tolerating PO and voiding well. Plan discussed w/ CTS team during rounds. Start low dose coreg today. Diuresis w/ Bumex. Hold warfarin dose. Encourage IS and wean O2 as able. TTF later today if pt doing well. Call light in pt's reach, ICU care cont. * Negra Best MD - 09/12/2018 6:20 AM CDT JODEE ON. Remains in rate controlled afib. Continues to diurese well, negative 2.8L yesterday. Cr stable at 1.5. Remains on 6LNC. CXR with improving effusions/atelectasis compared to yesterday. INR 2.9 from 2.2 this AM; will continue to hold Coumadin. Continue diuresis and pulm hygiene. Hopefully transfer to floor later today. Nerga Best MD * Elida Donnelly RN - 09/12/2018 4:18 AM CDT 0344-Reassessment complete. No acute changes. Pt resting comfortably. Will continue to monitor. * Elida Donnelly RN - 09/12/2018 12:33 AM CDT 0010-Reassessment complete. No acute changes at this time. Pt resting comfortably. Will continue to monitor. * Nilton Masterson MD - 09/11/2018 10:29 PM CDT Critical Care Progress Note Today's Date: 09/11/2018 Name: Ashlee Hoyt Admission Date: 09/08/2018 LOS: 3 days Assessment/Plan: Principal Problem: S/P mitral valve repair Active Problems: Atrial fibrillation (HCC) Chronic diastolic heart failure (HCC) HTN (hypertension) Hyperlipemia Morbid obesity (HCC) Acute on chronic diastolic CHF (congestive heart failure), NYHA class 3 (HCC) H/O tricuspid valve annuloplasty S/P Maze operation for atrial fibrillation Acute on chronic respiratory failure with hypoxia (HCC) Neuro: Pain well controlled. Monitor. Cardiac: Hemodynamics improving. Uptitrate antihypertensives. Avoiding AV emmie blockers for now as she has had intermittent junctional rhythm. Respiratory: CXR with some congestion. Chronic O2 requirement. Diuresis in favor of lungs today. Cont NIV as needed and nocturnally. GI: Advance diet as tolerated. GI ppx. Continue bowel regimen, ensure regular BM. Heme: INR with large increase. Will hold warfarin for tonight. Monitor. ID: No infectious concerns. Monitor. Renal: Watch BMP. Creat looks to have peaked. Bumex today in favor of lungs. FEN:Electrolyte goals while in ICU: Mg >2.0, iCal > 1.0, K+ >4.0 mEq/L. Insulin gtt per Modified Pratt Protocol. Activity: Advance activity as tolerated. Early cardiac PT/OT. Dispo: This patient is immediately postop, critically ill with dysfunction of multiple organ systems and is at risk for additional life threatening deterioration. Cont ICU care while having increased oxygen requirements. __ Subjective: Ashlee Hoyt is a 68 y.o. female. Overnight Events: Increased oxygen requirements. Objective: Medications: Scheduled Meds: acetaminophen (TYLENOL) tablet 1,000 mg 1,000 mg Oral Q6H* amLODIPine (NORVASC) tablet 10 mg 10 mg Oral QDAY aspirin EC tablet 81 mg 81 mg Oral QDAY atorvastatin (LIPITOR) tablet 40 mg 40 mg Oral QDAY doxazosin (CARDURA) tablet 2 mg 2 mg Oral QDAY insulin aspart U-100 (NOVOLOG FLEXPEN) injection PEN 0-14 Units 0-14 Units Subcutaneous 5 X Day polyethylene glycol 3350 (MIRALAX) packet 17 g 1 packet Oral BID senna/docusate (SENOKOT-S) tablet 2 tablet 2 tablet Oral BID triamterene-hydrochlorothiazide (MAXZIDE) 75-50 mg tablet 1 tablet 1 tablet Oral QDAY Continuous Infusions: nitroGLYCERIN 50 mg/D5W 250 mL infusion Stopped (09/09/18 1550) PRN and Respiratory Meds:[START ON 09/13/2018] acetaminophen Q6H PRN OR [ START ON 09/13/2018] acetaminophen Q6H PRN, alum/mag hydroxide/simeth Q4H PRN, bisacodyl QDAY PRN, hydrALAZINE Q6H PRN, lidocaine PF PRN, metoclopramide ( REGLAN) IV Q6H PRN, milk of magnesia (CONC) QDAY PRN, ondansetron Q6H PRN OR* * ondansetron (ZOFRAN) IV Q6H PRN, oxyCODONE Q4H PRN, potassium chloride SR PRN OR potassium chloride PRN OR potassium chloride in water PRN, traMADol Q6H PRN Vital Signs: Last Filed Vital Signs: 24 Hour Range BP: 137/71 (09/11 2200) Temp: 37.3 C (99.2 F) (09/11 2010) Pulse: 94 (09/11 2200) Respirations: 19 PER MINUTE (09/11 2200) SpO2: 94 % (09/11 2200) O2 Delivery: High Flow Nasal Cannula (09/11 2200) Weight: 118.1 kg (260 lb 5.8 oz) (09/11 600) BP: (114-155)/(57-92) Temp: [37 C (98.6 F)-37.4 C (99.4 F)] Pulse: [84-107] Respirations: [14 PER MINUTE-31 PER MINUTE] SpO2: [75 %-97 %] O2 Delivery: High Flow Nasal Cannula Intensity Pain Scale (Self Report): (not recorded) Vitals: 09/09/18 0600 09/10/18 0600 09/11/18599 Weight: 116.7 kg (257 lb 4.4 oz) 123.8 kg (273 lb) 118.1 kg (260 lb 5.8 oz) Intake/Output Summary (Last 24 hours) at 09/11/189 Last data filed at 09/11/18 2100 Gross per 24 hour Intake 600 ml Output 5250 ml Net -4650 ml Physical Exam: General: Alert, cooperative, no distress, appears stated age Lungs: DIminished bilaterally Heart: Junctional to NSR rhythm Abdomen: Soft, non-tender. Bowel sounds normal. No masses. No organomegaly. Extremities: Edema present Lab Review: 24-hour labs: Results for orders placed or performed during the hospital encounter of (from the past 24 hour(s)) CBC Collection Time: 09/11/18 3:20 AM Result Value Ref Range White Blood Cells 11.9 (H) 4.5 - 11.0 K/UL RBC 3.09 (L) 4.0 - 5.0 M/UL Hemoglobin 9.3 (L) 12.0 - 15.0 GM/DL Hematocrit 27.8 (L) 36 - 45 % MCV 90.0 80 - 100 FL MCH 30.2 26 - 34 PG MCHC 33.6 32.0 - 36.0 G/DL RDW 15.4 (H) 11 - 15 % Platelet Count 122 (L) 150 - 400 K/UL MPV 9.2 7 - 11 FL BASIC METABOLIC PANEL Collection Time: 09/11/18 3:20 AM Result Value Ref Range Sodium 135 (L) 137 - 147 MMOL/L Potassium 4.1 3.5 - 5.1 MMOL/L Chloride 100 98 - 110 MMOL/L CO2 26 21 - 30 MMOL/L Anion Gap 9 3 - 12 Glucose 104 (H) 70 - 100 MG/DL Blood Urea Nitrogen 38 (H) 7 - 25 MG/DL Creatinine 1.69 (H) 0.4 - 1.00 MG/DL Calcium 10.3 8.5 - 10.6 MG/DL eGFR Non 30 (L) >60 mL/min eGFR 37 (L) >60 mL/min PROTIME INR (PT) Collection Time: 09/11/18 3:20 AM Result Value Ref Range INR 2.2 (H) 0.8 - 1.2 POC GLUCOSE Collection Time: 09/11/18 3:23 AM Result Value Ref Range Glucose, POC 104 (H) 70 - 100 MG/DL POC GLUCOSE Collection Time: 09/11/18 8:47 AM Result Value Ref Range Glucose, POC 102 (H) 70 - 100 MG/DL POC GLUCOSE Collection Time: 09/11/18 12:12 PM Result Value Ref Range Glucose, POC 105 (H) 70 - 100 MG/DL BASIC METABOLIC PANEL Collection Time: 09/11/18 4:10 PM Result Value Ref Range Sodium 135 (L) 137 - 147 MMOL/L Potassium 3.8 3.5 - 5.1 MMOL/L Chloride 96 (L) 98 - 110 MMOL/L CO2 31 (H) 21 - 30 MMOL/L Anion Gap 8 3 - 12 Glucose 99 70 - 100 MG/DL Blood Urea Nitrogen 41 (H) 7 - 25 MG/DL Creatinine 1.52 (H) 0.4 - 1.00 MG/DL Calcium 10.5 8.5 - 10.6 MG/DL eGFR Non 34 (L) >60 mL/min eGFR 41 (L) >60 mL/min MAGNESIUM Collection Time: 09/11/18 4:10 PM Result Value Ref Range Magnesium 2.1 1.6 - 2.6 mg/dL PHOSPHORUS Collection Time: 09/11/18 4:10 PM Result Value Ref Range Phosphorus 3.4 2.0 - 4.5 MG/DL POC GLUCOSE Collection Time: 09/11/18 4:12 PM Result Value Ref Range Glucose, POC 99 70 - 100 MG/DL POC GLUCOSE Collection Time: 09/11/18 9:18 PM Result Value Ref Range Glucose, POC 132 (H) 70 - 100 MG/DL Point of Care Testing: (Last 24 hours): Glucose: 99 (09/11/18 1610) POC Glucose (Download): (!) 132 (09/11/188) Radiology and Other Diagnostic Procedures Review: Pertinent radiology reviewed. I have seen, examined and reviewed data concerning this patient. I discussed the findings and plan of care with the [facility] ICU team. I spent 45 minutes in critical care time, excluding procedures today. Nilton Masterson MD [employer] Anesthesiology and Critical Care [phone] * Elida Donnelly RN - 09/11/2018 10:08 PM CDT 2009-Initial assessment complete. Pt lethargic but oriented x4. ANTOINE. Temp ~99. PERRL. Pt is Afib in the 80s-90s. SBP 130s-140s. Pulses palpable. Lungs clear/ diminished on 6L HFNC. Encouraging respiratory exercises frequently. Voiding adequately. No c/o pain. Pt resting comfortably at this time. ~2100-Pt walked, VSS, some c/o SOA, SpO2 decreased to ~90. Back to chair. * David River MD - 09/11/2018 12:40 PM CDT Increased O2 requirements last night, but hemodynamics good. Suspect she is mobilizing and will need aggressive diuretics. Discussed w family. * Marilu Coleman APRN - 09/11/2018 9:15 AM CDT Cardiothoracic Surgery Critical Care Progress Note Ashlee Gambino Jonna Today's Date: 09/11/2018 Admission Date: 09/08/2018 LOS: 3 days POD: 3 Procedure: VALVULOPLASTY MITRAL VALVE WITH CARDIOPULMONARY BYPASS AND PROSTHETIC RIN (CPT) TISSUE ABLATION AND RECONSTRUCTION OF ATRIA WITH CARDIOPULMONARY BYPASS - EXTENSIVE: 08261 (CPT) Principal Problem: S/P mitral valve repair Active Problems: Atrial fibrillation (HCC) Chronic diastolic heart failure (HCC) HTN (hypertension) Hyperlipemia Morbid obesity (HCC) Acute on chronic diastolic CHF (congestive heart failure), NYHA class 3 (HCC) H/O tricuspid valve annuloplasty S/P Maze operation for atrial fibrillation Assessment/Plan: Neuro Pain controlled on current regimen. Continue PRN tramadol, oxycodone with scheduled Tylenol. CV Post-op had times of accelerated junctional 50's with sinus beats. Now atrial fibrillation rates 70-100. EC wires capped (atrial wire have been removed -> non-functional). BP 120s-150s/60s-70s. Continue Cardura, Maxzide, increase amlodipine to 10mg. Cont ASA 81 mg (hold for plts < 80k) and statin. Hold BB with recent JR and ACEI in the initial post op phase. Intra op ARNAUD LVEF normal. Resp Daily CXR bedside interpretation: lungs expanded, pulmonary vascular congestion, persistent bibasilar atelectasis. Will review radiology report. SpO2 95% on BiPap 10/5, FiO2 60%. Wean FiO2. Wears 2L home O2. Continue IS, aggressive pulm toilet. Renal JOSE F on CKD. Baseline Scr 1.25-->1.39-->1.85-->1.69 today. Monitor BMP BID. Continue maxzide. UOP 3.8 L/24hr, net -2260 mL/24hr. Continue to diurese with Bumex. GI - ADAT, continue post op bowel regimen. Last BM V/[employer]. ID afebrile. No indication for abx. Heme INR 1.3-->2.2 after warfarin 5 mg x2 doses, hold warfarin tonight. Holding V/[employer] Eliquis (for atrial fib). Continue mechanical prophylaxis. FEN If creatinine < 2.0, replace Mg and K per CTS post op protocol. Hgb A1c 5.6 %. FSBS 104-122, continue MDCF. Activity OOBTC. Early cardiac PT/OT. Prophylaxis Review: Lines: Yes; Central Line; Indication: Hemodynamic monitoring; Type: Internal jugular Antibiotic Usage: No VTE: Pharmacological prophylaxis; Warfarin and Mechanical prophylaxis; Foot pump Urinary Catheter: Yes; Retain cardoza due to: Need for accurate Intake and Output and Acute renal insufficiency or failure Disposition: The patient is post-cardiac surgery at at risk for life threatening deterioration. Patient is s/p valvuloplasty mitral valve with prosthetic ring with full MAZE with Dr. River. Continue ICU for acute on chronic hypoxic respiratory failure. I have seen, personally fully evaluated, and discussed patient with the critical care attending and cardiothoracic surgeon. The patient is critically ill, I spent 60 minutes (excluding time spent performing procedures) providing and personally directing critical care services hemodynamic monitoring and management, lab and radiology review, medication review and management, fluid and electrolyte management and coordination of care. Marilu Coleman APRN [facility] Intensive Care Pager [phone] 09/11/2018 Subjective: HPI: Ashlee Hoyt is a 68 y.o. female with a history of A. fib with RVR, chronic anticoagulation, acute on chronic diastolic heart failure, hypertension, morbid obesity, hyperlipidemia and respiratory failure. She was hospitalized in May with respiratory failure and wears home O2. She underwent valvuloplasty mitral valve with prosthetic ring with full MAZE with Dr. River. She remains in the ICU with accelerated junctional rhythm with evolving JOSE F, will continue diuretic management and optimize hemodynamics, stay in ICU today. POD2 converted out of JR to AF POD 3 remains AF. Increased O2 requirements overnight, requiring BiPap. REVIEW OF SYSTEMS: Constitutional: negative for fevers and chills Respiratory: positive for increased work of breathing, negative for wheezing Cardiovascular: negative for chest pain, palpitations Gastrointestinal: positive for decreased appetite, negative for nausea and vomiting Musculoskeletal:negative for muscle weakness Neurological: negative for memory problems and speech problems Objective: Medications: Scheduled Meds: acetaminophen (TYLENOL) tablet 1,000 mg 1,000 mg Oral Q6H* amLODIPine (NORVASC) tablet 10 mg 10 mg Oral QDAY aspirin EC tablet 81 mg 81 mg Oral QDAY atorvastatin (LIPITOR) tablet 40 mg 40 mg Oral QDAY doxazosin (CARDURA) tablet 2 mg 2 mg Oral QDAY insulin aspart U-100 (NOVOLOG FLEXPEN) injection PEN 0-14 Units 0-14 Units Subcutaneous 5 X Day polyethylene glycol 3350 (MIRALAX) packet 17 g 1 packet Oral BID senna/docusate (SENOKOT-S) tablet 2 tablet 2 tablet Oral BID triamterene-hydrochlorothiazide (MAXZIDE) 75-50 mg tablet 1 tablet 1 tablet Oral QDAY Continuous Infusions: nitroGLYCERIN 50 mg/D5W 250 mL infusion Stopped (09/09/18 1550) PRN and Respiratory Meds:[START ON 09/13/2018] acetaminophen Q6H PRN OR [ START ON 09/13/2018] acetaminophen Q6H PRN, alum/mag hydroxide/simeth Q4H PRN, bisacodyl QDAY PRN, hydrALAZINE Q6H PRN, lidocaine PF PRN, metoclopramide ( REGLAN) IV Q6H PRN, milk of magnesia (CONC) QDAY PRN, ondansetron Q6H PRN OR* * ondansetron (ZOFRAN) IV Q6H PRN, oxyCODONE Q4H PRN, potassium chloride SR PRN OR potassium chloride PRN OR potassium chloride in water PRN, traMADol Q6H PRN Vital Signs: Last Filed Vital Signs: 24 Hour Range BP: 154/92 (09/11 1000) Temp: 37.4 C (99.4 F) (09/11 0800) Pulse: 98 (09/11 1000) Respirations: 27 PER MINUTE (09/11 1000) SpO2: 94 % (09/11 1000) O2 Delivery: High Flow Nasal Cannula (09/11 1000) SpO2 Pulse: 95 (09/11 1000) BP: (120-155)/(58-92) Temp: [37 C (98.6 F)-37.4 C (99.4 F)] Pulse: [73-107] Respirations: [13 PER MINUTE-31 PER MINUTE] SpO2: [75 %-97 %] O2 Delivery: High Flow Nasal Cannula Intensity Pain Scale (Self Report): 0 (09/11/18 1000) Vitals: 09/09/18 0600 09/10/18 0600 09/11/18 0600 Weight: 116.7 kg (257 lb 4.4 oz) 123.8 kg (273 lb) 118.1 kg (260 lb 5.8 oz) Intake/Output Summary: (Last 24 hours) Intake/Output Summary (Last 24 hours) at 09/11/18 1117 Last data filed at 09/11/18 1000 Gross per 24 hour Intake 1060 ml Output 4275 ml Net -3215 ml Physical Exam: Neuro: Awake and alert, ANTOINE Cardiovascular: RRR no rub or murmur Respiratory: LS CTA jocelyn - diminished in the bases GI: soft, NT, hypoactive BS Extremities: 2+ BLE Edema Incisions: Sternal incision dressing, dry and intact. No crepitus or sternal instability. Laboratory: LABS: Recent Labs 09/08/18 1315 09/08/18 1423 09/08/18 1735 09/08/18 2027 09/09/18 0411 09/09/18 1545 09/10/18 0150 09/10/18 1210 09/10/18 1720 09/11/18 0320 NA 140 -- -- -- 140 136* 136* 134* 135* 135* K 3.5 3.7 3.7 4.0 3.9 4.3 3.8 4.3 4.3 4.1 CL 107 -- -- -- 106 104 104 102 101 100 CO2 25 -- -- -- 24 22 24 26 26 26 GAP 8 -- -- -- 10 10 8 6 8 9 BUN 21 -- -- -- 22 29* 30* 34* 35* 38* CR 1.14* -- -- -- 1.39* 1.79* 1.85* 1.65* 1.72* 1.69* GLU 158* -- -- -- 136* 161* 145* 118* 114* 104* CA 8.7 -- -- -- 9.4 9.5 9.3 9.9 10.1 10.3 MG 2.3 -- 2.9* -- -- -- 2.3 -- 2.5 -- Recent Labs 09/08/18 1315 09/09/18 0411 09/10/18 0150 09/11/18 0320 WBC 10.6 10.5 12.5* 11.9* HGB 10.9* 10.9* 9.3* 9.3* HCT 32.3* 32.1* 27.3* 27.8* PLTCT 137* 159 110* 122* INR 1.2 -- 1.3* 2.2* PTT 24.9 -- -- -- Estimated Creatinine Clearance: 42.8 mL/min (A) (based on SCr of 1.69 mg/dL (H)) . Vitals: 09/09/18 0600 09/10/18 0600 09/11/18 0600 Weight: 116.7 kg (257 lb 4.4 oz) 123.8 kg (273 lb) 118.1 kg (260 lb 5.8 oz) Recent Labs 09/08/18 1850 PHART 7.40 PO2ART 88 Radiology and Other Diagnostic Procedures Review: Reviewed * Gurjit Diehl, RIMMA - 09/11/2018 8:30 AM CDT Pt assessment completed per flowsheet. Lines and drains reviewed. Pt is a/o x 4, denies pain and is currently on BiPAP 5/5 60%. Plan to change to high flow NC once she is ready to move OOBTC. ABD soft, rounds w/ active BS and bountiful flatulent's. Tolerating PO and voiding. Wounds per flowsheet. Plan discussed w/ CTS team during rounds. Increase norvasc. Give bumex today. Hold warfarin dose. Encourage IS, IPPB. Ambulation and OOB TID. Keep in ICU today to closely monitor respiratory status. * Elida Donnelly RN - 09/11/2018 6:23 AM CDT Pt desats when turning. Team aware. Unable to get up to the chair at this time. * Elida Donnelly RN - 09/11/2018 4:27 AM CDT 0420-Reassessment complete. Pt switched to face mask for more comfort. See flowsheet for details of assessment. No other acute changes at this time. * Elida Donnelly RN - 09/11/2018 12:35 AM CDT 0010-Reassessment complete. Pt resting comfortably at this time. Periods of desatting when getting up and moving, RT notified, to bedside for treatment. Josee Carter APRN notified, new orders placed and carried out. See flowsheet for details of assessment. * Milan Barraza DO - 09/10/2018 4:28 PM CDT Critical Care Progress Note Today's Date: 09/10/2018 Name: Ashlee Hoyt Admission Date: 09/08/2018 LOS: 2 days Assessment/Plan: Principal Problem: S/P mitral valve repair Active Problems: Atrial fibrillation (HCC) Chronic diastolic heart failure (HCC) HTN (hypertension) Hyperlipemia Morbid obesity (HCC) Acute on chronic diastolic CHF (congestive heart failure), NYHA class 3 (HCC) H/O tricuspid valve annuloplasty S/P Maze operation for atrial fibrillation Neuro: PRN tylenol and PRN opioids per CTS protocol. Assess daily for delirium. Cardiac: Monitor vitals q1hr. Fluids and inotropes for CI greater than 2. Diuresis in favor of lungs Respiratory: OOB when able, aggressive RT. Chest tubes per CTS. 2 liter O2 home requirement. Continue Nebs GI: Advance diet as tolerated. GI ppx. Continue CTS bowel regimen, ensure regular BM. Heme: Watch CBC/coags, assess for coagulopathy. Hold chemical DVT ppx until cleared by CTS, continue mechanical ppx. Continue warfarin ID: Post op abx: Per CTS protocol Renal: Watch BMP, monitor for JOSE F. Cr up. Lasix/diuril today FEN:Electrolyte goals while in ICU: Mg >2.0, iCal > 1.0, K+ >4.0 mEq/L. Insulin gtt per Modified Rosalind Protocol. Activity: Advance activity as tolerated. Early cardiac PT/OT. Dispo: This patient is immediately postop, critically ill with dysfunction of multiple organ systems and is at risk for additional life threatening deterioration. Cont ICU care. __ Subjective: Ashlee Hoyt is a 68 y.o. female. Overnight Events:JODEE Objective: Medications: Scheduled Meds: acetaminophen (TYLENOL) tablet 1,000 mg 1,000 mg Oral Q6H* amLODIPine (NORVASC) tablet 5 mg 5 mg Oral QDAY aspirin EC tablet 81 mg 81 mg Oral QDAY atorvastatin (LIPITOR) tablet 40 mg 40 mg Oral QDAY doxazosin (CARDURA) tablet 2 mg 2 mg Oral QDAY insulin aspart U-100 (NOVOLOG FLEXPEN) injection PEN 0-14 Units 0-14 Units Subcutaneous 5 X Day senna/docusate (SENOKOT-S) tablet 2 tablet 2 tablet Oral BID triamterene-hydrochlorothiazide (MAXZIDE) 75-50 mg tablet 1 tablet 1 tablet Oral QDAY warfarin (COUMADIN) tablet 5 mg 5 mg Oral QHS Continuous Infusions: nitroGLYCERIN 50 mg/D5W 250 mL infusion Stopped (09/09/18 1550) PRN and Respiratory Meds:[START ON 09/13/2018] acetaminophen Q6H PRN OR [ START ON 09/13/2018] acetaminophen Q6H PRN, alum/mag hydroxide/simeth Q4H PRN, bisacodyl QDAY PRN, hydrALAZINE Q6H PRN, lidocaine PF PRN, metoclopramide ( REGLAN) IV Q6H PRN, milk of magnesia (CONC) QDAY PRN, ondansetron Q6H PRN OR* * ondansetron (ZOFRAN) IV Q6H PRN, oxyCODONE Q4H PRN, potassium chloride SR PRN OR potassium chloride PRN OR potassium chloride in water PRN, traMADol Q6H PRN Vital Signs: Last Filed Vital Signs: 24 Hour Range BP: 135/70 (09/10 1600) Temp: 37 C (98.6 F) (09/10 1200) Pulse: 83 (09/10 1600) Respirations: 20 PER MINUTE (09/10 1600) SpO2: 93 % (09/10 1600) O2 Delivery: High Flow Nasal Cannula (09/10 1400) Weight: 123.8 kg (273 lb) (09/10 0600) BP: (120-172)/(55-97) Temp: [37 C (98.6 F)-37.3 C (99.1 F)] Pulse: [56-106] Respirations: [13 PER MINUTE-33 PER MINUTE] SpO2: [84 %-96 %] O2 Delivery: High Flow Nasal Cannula Intensity Pain Scale (Self Report): (not recorded) Vitals: 09/08/18 0742 09/09/18 0600 09/10/18 0600 Weight: 114.8 kg (253 lb 1.4 oz) 116.7 kg (257 lb 4.4 oz) 123.8 kg (273 lb) Critical Care Vitals: ICP Monitoring: PA Catheter: Hemodynamics/Oxycalcs: Intake/Output Summary: (Last 24 hours) Intake/Output Summary (Last 24 hours) at 09/10/18 1628 Last data filed at 09/10/18 1600 Gross per 24 hour Intake 1600 ml Output 1687 ml Net -87 ml Physical Exam: General: Alert, cooperative, no distress, appears stated age Lungs: DIminished bilaterally Heart: Junctional to NSR rhythm Abdomen: Soft, non-tender. Bowel sounds normal. No masses. No organomegaly. Extremities: Edema present Lab Review: 24-hour labs: Results for orders placed or performed during the hospital encounter of (from the past 24 hour(s)) POC GLUCOSE Collection Time: 09/09/18 6:05 PM Result Value Ref Range Glucose, POC 152 (H) 70 - 100 MG/DL POC GLUCOSE Collection Time: 09/09/18 9:07 PM Result Value Ref Range Glucose, POC 165 (H) 70 - 100 MG/DL CBC Collection Time: 09/10/18 1:50 AM Result Value Ref Range White Blood Cells 12.5 (H) 4.5 - 11.0 K/UL RBC 3.05 (L) 4.0 - 5.0 M/UL Hemoglobin 9.3 (L) 12.0 - 15.0 GM/DL Hematocrit 27.3 (L) 36 - 45 % MCV 89.3 80 - 100 FL MCH 30.5 26 - 34 PG MCHC 34.1 32.0 - 36.0 G/DL RDW 14.8 11 - 15 % Platelet Count 110 (L) 150 - 400 K/UL MPV 8.9 7 - 11 FL BASIC METABOLIC PANEL Collection Time: 09/10/18 1:50 AM Result Value Ref Range Sodium 136 (L) 137 - 147 MMOL/L Potassium 3.8 3.5 - 5.1 MMOL/L Chloride 104 98 - 110 MMOL/L CO2 24 21 - 30 MMOL/L Anion Gap 8 3 - 12 Glucose 145 (H) 70 - 100 MG/DL Blood Urea Nitrogen 30 (H) 7 - 25 MG/DL Creatinine 1.85 (H) 0.4 - 1.00 MG/DL Calcium 9.3 8.5 - 10.6 MG/DL eGFR Non 27 (L) >60 mL/min eGFR 33 (L) >60 mL/min PROTIME INR (PT) Collection Time: 09/10/18 1:50 AM Result Value Ref Range INR 1.3 (H) 0.8 - 1.2 MAGNESIUM Collection Time: 09/10/18 1:50 AM Result Value Ref Range Magnesium 2.3 1.6 - 2.6 mg/dL POC GLUCOSE Collection Time: 09/10/18 3:02 AM Result Value Ref Range Glucose, POC 152 (H) 70 - 100 MG/DL POC GLUCOSE Collection Time: 09/10/18 8:08 AM Result Value Ref Range Glucose, POC 120 (H) 70 - 100 MG/DL BASIC METABOLIC PANEL Collection Time: 09/10/18 12:10 PM Result Value Ref Range Sodium 134 (L) 137 - 147 MMOL/L Potassium 4.3 3.5 - 5.1 MMOL/L Chloride 102 98 - 110 MMOL/L CO2 26 21 - 30 MMOL/L Anion Gap 6 3 - 12 Glucose 118 (H) 70 - 100 MG/DL Blood Urea Nitrogen 34 (H) 7 - 25 MG/DL Creatinine 1.65 (H) 0.4 - 1.00 MG/DL Calcium 9.9 8.5 - 10.6 MG/DL eGFR Non 31 (L) >60 mL/min eGFR 38 (L) >60 mL/min POC GLUCOSE Collection Time: 09/10/18 12:12 PM Result Value Ref Range Glucose, POC 120 (H) 70 - 100 MG/DL Point of Care Testing: (Last 24 hours): Glucose: (!) 118 (09/10/18 1210) POC Glucose (Download): (!) 120 (09/10/18 1212) Radiology and Other Diagnostic Procedures Review: Pertinent radiology reviewed. I have seen, examined and reviewed data concerning this patient. I discussed the findings and plan of care with the [facility] ICU team. I spent 30 minutes in critical care time, excluding procedures today. Milan Barraza DO [employer] Anesthesiology and Critical Care [phone] * Kelly Yuen, RIMMA - 09/10/2018 4:00 PM CDT Pt reassessed - see flowsheet for detailed assessment. Pt resting in chair throughout day. Encouraging mobility and pulmonary toilet. Good response to bumex - Josephine Cazares APRN updated. 4L HF NC. Will continue to monitor. * Kelly Yuen, RIMMA - 09/10/2018 1:00 PM CDT Updated Josephine Cazares APRN on new BMP results, VS, UO, and decrease of O2 requirement last hour to 4L NC. New orders for bumex IV and hold/dc norvasc. Will continue to monitor. * Kelly Yuen RN - 09/10/2018 12:00 PM CDT Pt reassessed - see flowsheet for detailed assessment. Pt denies pain. Ambulated in hallway - noted to desat to mid-80% and increased O2 requirements for walk up to 8L, but able to decrease to 6L NC when returned from walk. Encouraging mobility and deep breathing. Pt resting in chair this AM. Will continue to monitor. * Tala Cazares APRN - 09/10/2018 9:11 AM CDT Cardiothoracic Surgery Critical Care Progress Note Ashlee Hoyt Today's Date: 09/10/2018 Admission Date: 09/08/2018 LOS: 2 days POD: 2 Procedure: VALVULOPLASTY MITRAL VALVE WITH CARDIOPULMONARY BYPASS AND PROSTHETIC RIN (CPT) TISSUE ABLATION AND RECONSTRUCTION OF ATRIA WITH CARDIOPULMONARY BYPASS - EXTENSIVE: 00535 (CPT) Principal Problem: S/P mitral valve repair Active Problems: Atrial fibrillation (HCC) Chronic diastolic heart failure (HCC) HTN (hypertension) Hyperlipemia Morbid obesity (HCC) Acute on chronic diastolic CHF (congestive heart failure), NYHA class 3 (HCC) H/O tricuspid valve annuloplasty S/P Maze operation for atrial fibrillation Assessment/Plan: Neuro Continue PRN Fentanyl, oxycodone with scheduled Tylenol. CV Underlying accelerated junctional 50's with sinus beats, atrial fibrillation rate ~90. on back up VVI 40, d/c atrial wire (non-functional) BP ~160/70-90, cardura added yesterday. Cont ASA 81 mg (hold for plts <80k) and statin. Hold BB and ACEI in the initial post op phase. Intra op ARNAUD LVEF normal. Resp Daily CXR bedside interpretation: lungs expanded without large effusion with bibasilar atelectasis. Will await radiology report. Currently on 6L, Wean FiO2. Wears 2L home O2. Initiate IS, aggressive pulm toilet today. Renal JOSE F on CKD. Baseline Scr 1.25-->1.39-->1.85 today. Monitor BMP BID. Hold Lasix, diuril today. Continue maxzide. GI - ADAT, start post op bowel regimen today. Large gastric distention on xray with reglan scheduled yesterday. ID Continue standard post op antibiotic for prophylaxis, per CTS protocol. Heme INR 1.3, continue warfarin 5 mg today, Eliquis V/[employer] SIGNAL OFFICER for atrial fib. Continue mechanical prophylaxis. FEN If creatinine < 2.0, replace Mg and K per CTS post op protocol. Hgb A1c 5.6 %. Controlled on [facility]. Activity OOBTC. Early cardiac PT/OT. Prophylaxis Review: Lines: Yes; Central Line; Indication: Hemodynamic monitoring; Type: Internal jugular Antibiotic Usage: No VTE: Mechanical prophylaxis; Foot pump Urinary Catheter: Yes; Retain cardoza due to: Need for accurate Intake and Output and Acute renal insufficiency or failure Disposition: The patient is post-cardiac surgery at at risk for life threatening deterioration. Patient is s/p valvuloplasty mitral valve with prosthetic ring with full MAZE with Dr. River. Keep in the ICU today for hemodynamic monitoring, accelerated junctional rhthym, JOSE F. I have seen, personally fully evaluated, and discussed patient with the critical care attending and cardiothoracic surgeon. The patient is critically ill, I spent 60 minutes (excluding time spent performing procedures) providing and personally directing critical care services hemodynamic monitoring and management, lab and radiology review, medication review and management, fluid and electrolyte management and coordination of care. Tala Cazares APRN [facility] Intensive Care Pager [phone] 09/10/2018 Subjective: HPI: Ashlee Hoyt is a 68 y.o. female with a history of A. fib with RVR, chronic anticoagulation, acute on chronic diastolic heart failure, hypertension, morbid obesity, hyperlipidemia and respiratory failure. She was hospitalized in May with respiratory failure and wears home O2. She underwent valvuloplasty mitral valve with prosthetic ring with full MAZE with Dr. River. She remains in the ICU with accelerated junctional rhythm with evolving JOSE F, will continue diuretic management and optimize hemodynamics, stay in ICU today. REVIEW OF SYSTEMS: Constitutional: negative for fevers and chills Respiratory: negative for increased work of breathing, wheezing or dyspnea on exertion Cardiovascular: negative for chest pain, palpitations Gastrointestinal: positive for nausea and vomiting Musculoskeletal:negative for muscle weakness Neurological: negative for memory problems and speech problems Objective: Medications: Scheduled Meds: acetaminophen (TYLENOL) tablet 1,000 mg 1,000 mg Oral Q6H* aspirin EC tablet 81 mg 81 mg Oral QDAY atorvastatin (LIPITOR) tablet 40 mg 40 mg Oral QDAY chlorothiazide injection 500 mg 500 mg Intravenous ONCE doxazosin (CARDURA) tablet 2 mg 2 mg Oral QDAY insulin aspart U-100 (NOVOLOG FLEXPEN) injection PEN 0-14 Units 0-14 Units Subcutaneous 5 X Day senna/docusate (SENOKOT-S) tablet 2 tablet 2 tablet Oral BID triamterene-hydrochlorothiazide (MAXZIDE) 75-50 mg tablet 1 tablet 1 tablet Oral QDAY warfarin (COUMADIN) tablet 5 mg 5 mg Oral QHS WATER FOR INJECTION, STERILE IJ SOLN (Cabinet Override) NOW Continuous Infusions: nitroGLYCERIN 50 mg/D5W 250 mL infusion Stopped (09/09/18 1550) sodium chloride 0.9 % infusion Stopped (09/09/18 1550) PRN and Respiratory Meds:[START ON 09/13/2018] acetaminophen Q6H PRN OR [ START ON 09/13/2018] acetaminophen Q6H PRN, alum/mag hydroxide/simeth Q4H PRN, bisacodyl QDAY PRN, hydrALAZINE Q6H PRN, lidocaine PF PRN, metoclopramide ( REGLAN) IV Q6H PRN, milk of magnesia (CONC) QDAY PRN, ondansetron Q6H PRN OR* * ondansetron (ZOFRAN) IV Q6H PRN, oxyCODONE Q4H PRN, potassium chloride SR PRN OR potassium chloride PRN OR potassium chloride in water PRN, traMADol Q6H PRN Vital Signs: Last Filed Vital Signs: 24 Hour Range BP: 164/87 (09/10 800) Temp: 37.1 C (98.8 F) (09/10 726) Pulse: 87 (09/10 0800) Respirations: 22 PER MINUTE (09/10 0800) SpO2: 94 % (09/10 800) O2 Delivery: Nasal Cannula (09/10 800) SpO2 Pulse: 87 (09/10 800) BP: (121-172)/(55-97) ABP: (130-163)/(56-66) Temp: [36.9 C (98.4 F)-37.3 C (99.1 F)] Pulse: [56-106] Respirations: [14 PER MINUTE-33 PER MINUTE] SpO2: [84 %-96 %] O2 Delivery: Nasal Cannula Intensity Pain Scale (Self Report): 4 (09/10/18 08) Vitals: 09/08/18 0742 09/09/18 0600 09/10/18 06 Weight: 114.8 kg (253 lb 1.4 oz) 116.7 kg (257 lb 4.4 oz) 123.8 kg (273 lb) Intake/Output Summary: (Last 24 hours) Intake/Output Summary (Last 24 hours) at 09/10/18 0911 Last data filed at 09/10/18 0808 Gross per 24 hour Intake 1055.47 ml Output 737 ml Net 318.47 ml Physical Exam: Neuro: Awake and alert, ANTOINE Cardiovascular: RRR no rub or murmur Respiratory: LS CTA jocelyn - diminished in the bases GI: soft, NT, hypoactive BS Extremities: No Edema Incisions: Sternal incision dressing, dry and intact. No crepitus or sternal instability. Laboratory: LABS: Recent Labs 09/07/18 1024 09/08/18 1315 09/08/18 1423 09/08/18 1735 09/08/18 2027 09/09/18 0411 09/09/18 1545 09/10/18 0150 NA 142 140 -- -- -- 140 136* 136* K 4.0 3.5 3.7 3.7 4.0 3.9 4.3 3.8 CL 101 107 -- -- -- 106 104 104 CO2 31* 25 -- -- -- 24 22 24 GAP 10 8 -- -- -- 10 10 8 BUN 25 21 -- -- -- 22 29* 30* CR 1.25* 1.14* -- -- -- 1.39* 1.79* 1.85* GLU 93 158* -- -- -- 136* 161* 145* CA 10.2 8.7 -- -- -- 9.4 9.5 9.3 ALBUMIN 4.3 -- -- -- -- -- -- -- MG -- 2.3 -- 2.9* -- -- -- 2.3 HGBA1C 5.6 -- -- -- -- -- -- -- Recent Labs 09/07/18 1024 09/08/18 1315 09/09/18 0411 09/10/18 0150 WBC 4.7 10.6 10.5 12.5* HGB 12.2 10.9* 10.9* 9.3* HCT 36.8 32.3* 32.1* 27.3* PLTCT 187 137* 159 110* INR 1.1 1.2 -- 1.3* PTT 29.6 24.9 -- -- AST 22 -- -- -- ALT 15 -- -- -- ALKPHOS 90 -- -- -- Estimated Creatinine Clearance: 40.2 mL/min (A) (based on SCr of 1.85 mg/dL (H)) . Vitals: 09/08/18 0742 09/09/18 0600 09/10/18 0600 Weight: 114.8 kg (253 lb 1.4 oz) 116.7 kg (257 lb 4.4 oz) 123.8 kg (273 lb) Recent Labs 09/08/18 1850 PHART 7.40 PO2ART 88 Radiology and Other Diagnostic Procedures Review: Reviewed * Kelly Yuen RN - 09/10/2018 8:00 AM CDT Pt assessed - see flowsheet for detailed assessment. Pt states "mild pain" of 4/ 10, but denies need for pain medication. Lethargic, but easily arousable. Sitting in chair tolerating well. Encouraging deep breathing and coughing. 6L NC. Denies nausea. Eating breakfast at this time. Will continue to monitor. * Reuben Gruber MD - 09/10/2018 6:48 AM CDT 68F h/o A fib, NYHA class III from mitral regurgitation s/p mitral valve repair with 27mm Medtronic flexible band, DeVega annuloplasty of TV and Maze procedure on 09/08/18. Requiring more O2, typically on 2L nc at home. Was on 4L yesterday morning, now at 6. CPAP overnight. Rhythm varied from junctional to a fib to NSR with PVCs, currently in NSR with occasional PVCs. Received hydralazine over interval. UOP 36-75 ml hr. Received lasix 40mg once yesterday due to increased Cr, receiving 25% albumin q6hr. on maxzide cardura, coumadin. Cr currently 1.85 up from 1.79. Basline ~1.25. CXR improved congestion and left base effusion. Continue aggressive pulm toilet. Continue diuresis. Replace K. Keep on unit Reuben Gruber MD [id number] * Kareen Galvez, RN - 09/10/2018 6:31 AM CDT Pt walked 170 ft in giang with walker and standby assist at 0550. Up to chair. Pt stated she was able to get "some sleep" and that her pain was tolerable and she did not need any pain medication after walk completed. Monitor shows afib with frequent wide complex beats, rate 80s. SBP 140s, required more hydralazine to keep SBP < 160. Temp 37.3. On CPAP for CESAR overnight (wears CPAP at home), required O2 at 6L to keep SpO2>92%. Continued to require extensive coaching to use IS, doing 500. Taking water, c/o nausea when moving, comfortable at rest. Reglan given. Cardoza with adequate u/o >30 ml/hr. KCL 40 meq po given for AM K 3.8. Desaturated during walk to 88%, required increased O2 to 8L until recovered and then able to titrate back down to 6L. * Kareen Galvez RN - 09/10/2018 2:07 AM CDT Josee Carter NP notified of rhythm change to afib with possible bigeminy vs aberrantly conducted beats, rate increased to 90-100s. SBP 160. Orders received to draw AM lab early and add a magnesium level. Josee Carter NUCLEAR ENGINEERING TECHNICIAN notified of SBP>160 earlier, orders received to increase hydralazine dose from 10 to 10-20mg q 6 hrs. SBP decreased to 140-150s after another 10 mg IV given. * Kareen Galvez RN - 09/09/2018 9:35 PM CDT Assumed care of pt at 1930. Pt drowsy, states she is "very very tired". Up in chair on initial assessment. Oriented x4. ANTOINE. Up for walk with 2 person assist to stand, standby assist during walk, using walker at 2047. Pt c/o incisional pain, ultram 50 mg given with continued pain, oxycodone total 10 mg given after walk with partial relief. Pt getting scheduled doses of tylenol. Monitor shows junctional rhythm, rate 55-60s. V wires connected to temp pacer set at backup rate of 40. Hydralazine 10 mg IV given at 2035 for SBP>160. Temp 37.2. On O2 initially at 4L by NC. Pt desaturated during walk to 84%. O2 titrated up to 7L to keep SpO2 >92%. After walk, continued to require increased O2 to maintain SpO2. Poor effort on IS even with coaching. NUCLEAR ENGINEERING TECHNICIAN cough. Tolerating sips of water, c/o some intermittent nausea, hypoactive BS. Reglan 10 mg IV given to improve bowel motility. Senna given as ordered. Cardoza with marginal u/o, monitoring hourly, currently 30 ml/hr. 1 peripheral IV and RIJ introducer for access. * Kelly Yuen RN - 09/09/2018 4:00 PM CDT Assumed care of pt - assessed - see flowsheet for detailed assessment. Pt denies pain. States nausea is "better." Pt needing much encouragement to participate in care. Lethargic, but easily arousable. Orders to hold lasix IV until BMP resulted. NTG off - orders to DC lyla per Josephine Cazares, RAHUL. Will continue to monitor. * Star Barrazaed, - 09/09/2018 10:26 AM CDT Critical Care Progress Note Today's Date: 09/09/2018 Name: Ashlee Hoyt Admission Date: 09/08/2018 LOS: 1 day Assessment/Plan: Principal Problem: S/P mitral valve repair Active Problems: Atrial fibrillation (HCC) Chronic diastolic heart failure (HCC) HTN (hypertension) Hyperlipemia Morbid obesity (HCC) Acute on chronic diastolic CHF (congestive heart failure), NYHA class 3 (HCC) H/O tricuspid valve annuloplasty S/P Maze operation for atrial fibrillation Neuro: PRN tylenol and PRN opioids per CTS protocol. Assess daily for delirium. Cardiac: Monitor vitals q1hr. Fluids and inotropes for CI greater than 2. Diuresis in favor of lungs Respiratory: COOB when able, aggressive RT. Chest tubes per CTS. 2 liter O2 home requirement. Continue Nebs GI: NPO for now, then advance diet as tolerated. GI ppx. Start CTS bowel regimen, ensure regular BM. Heme: Check postop CBC/coags, assess for coagulopathy. Hold chemical DVT ppx until cleared by CTS, continue mechanical ppx. ID: Post op abx: Per CTS protocol Renal: Check postop BMP, monitor for JOSE F. Fluids PRN to maintain hemodynamic stability. FEN:Electrolyte goals while in ICU: Mg >2.0, iCal > 1.0, K+ >4.0 mEq/L. Insulin gtt per Modified Rosalind Protocol. Activity: Advance activity as tolerated. Early cardiac PT/OT. Dispo: This patient is immediately postop, critically ill with dysfunction of multiple organ systems and is at risk for additional life threatening deterioration. Cont ICU care. __ Subjective: Ashlee Hoyt is a 68 y.o. female. Overnight Events:JODEE, Extubated Objective: Medications: Scheduled Meds: acetaminophen (TYLENOL) tablet 1,000 mg 1,000 mg Oral Q6H* aspirin EC tablet 81 mg 81 mg Oral QDAY atorvastatin (LIPITOR) tablet 40 mg 40 mg Oral QDAY ceFAZolin (ANCEF) IVP 2 g 2 g Intravenous Q8H* furosemide (LASIX) injection 40 mg 40 mg Intravenous BID(08-14) senna/docusate (SENOKOT-S) tablet 2 tablet 2 tablet Oral BID triamterene-hydrochlorothiazide (MAXZIDE) 75-50 mg tablet 1 tablet 1 tablet Oral QDAY warfarin (COUMADIN) tablet 5 mg 5 mg Oral QHS Continuous Infusions: nitroGLYCERIN 50 mg/D5W 250 mL infusion 0.5 mcg/kg/min (09/09/18 0842) sodium chloride 0.9 % infusion 30 mL/hr at 09/08/18 1241 PRN and Respiratory Meds:[START ON 09/13/2018] acetaminophen Q6H PRN OR [ START ON 09/13/2018] acetaminophen Q6H PRN, alum/mag hydroxide/simeth Q4H PRN, bisacodyl QDAY PRN, fentaNYL citrate PF Q1H PRN, hydrALAZINE Q6H PRN, lidocaine PF PRN, milk of magnesia (CONC) QDAY PRN, ondansetron Q6H PRN OR ondansetron (ZOFRAN) IV Q6H PRN, oxyCODONE Q4H PRN, potassium chloride SR PRN OR potassium chloride PRN OR potassium chloride in water PRN Vital Signs: Last Filed Vital Signs: 24 Hour Range ABP: 130/64 (09/09 1000) Temp: 36.9 C (98.4 F) (09/09 1000) Pulse: 58 (09/09 1000) Respirations: 18 PER MINUTE (09/09 1000) SpO2: 93 % (09/09 1000) O2 Delivery: Nasal Cannula (09/09 09) Weight: 116.7 kg (257 lb 4.4 oz) (09/09 06) ABP: (100-148)/(50-82) Temp: [36.1 C (97 F)-37.4 C (99.3 F)] Pulse: [58-81] Respirations: [0 PER MINUTE-25 PER MINUTE] SpO2: [93 %-99 %] O2 Delivery: Nasal Cannula Intensity Pain Scale (Self Report): 5 (09/09/18 0900) Vitals: 09/08/18 0742 09/09/18 0600 Weight: 114.8 kg (253 lb 1.4 oz) 116.7 kg (257 lb 4.4 oz) Critical Care Vitals: Vigileo SVI (Calculated): (!) 23 (09/08/18 1400) SVRI (Calculated): (!) 3889 (09/08/18 1325) LVSWI (Calculated): (!) 20 (09/08/18 1400) ICP Monitoring: PA Catheter: PA Catheter Only PA Pressure: (!) 40/20 (09/09/18 1000) PA Mean (mm Hg): (!) 28 mm Hg (09/09/18 1000) PAOP: (!) 25 MM HG (09/08/18 1400) CO: 4.14 (09/08/18 1400) CI: (!) 1.87 (09/08/18 1400) SVR (Calculated): 1468 (09/08/18 1400) SVRI (Calculated): (!) 3889 (09/08/18 1325) PVR (Calculated): 77 (09/08/18 1400) PVRI (Calculated): (!) 171 (09/08/18 1400) SV (Calculated): (!) 52 (09/08/18 1400) SVI (Calculated): (!) 23 (09/08/18 1400) Hemodynamics/Oxycalcs: Hemodynamics/Oxycalcs PA Pressure: (!) 40/20 (09/09/18 1000) PA Mean (mm Hg): (!) 28 mm Hg (09/09/18 1000) CVP: (!) 14 MM HG (09/09/18 1000) PAOP: (!) 25 MM HG (09/08/18 1400) CO: 4.14 (09/08/18 1400) CI: (!) 1.87 (09/08/18 1400) SVR (Calculated): 1468 (09/08/18 1400) SVRI (Calculated): (!) 3889 (09/08/18 1325) PVR (Calculated): 77 (09/08/18 1400) PVRI (Calculated): (!) 171 (09/08/18 1400) LVSWI (Calculated): (!) 20 (09/08/18 1400) RVSWI (Calculated): (!) 4.14 (09/08/18 1325) SV (Calculated): (!) 52 (09/08/18 1400) SVI (Calculated): (!) 23 (09/08/18 1400) Intake/Output Summary: (Last 24 hours) Intake/Output Summary (Last 24 hours) at 09/09/18 1027 Last data filed at 09/09/18 0900 Gross per 24 hour Intake 5950.51 ml Output 1387 ml Net 4563.51 ml Physical Exam: General: Alert, cooperative, no distress, appears stated age Lungs: DIminished bilaterally Heart: Junctional to NSR rhythm Abdomen: Soft, non-tender. Bowel sounds normal. No masses. No organomegaly. Extremities: Edema present Lab Review: 24-hour labs: Results for orders placed or performed during the hospital encounter of (from the past 24 hour(s)) POC GLUCOSE Collection Time: 09/08/18 10:34 AM Result Value Ref Range Glucose, POC 154 (H) 70 - 100 MG/DL POC BLOOD GAS ARTERIAL Collection Time: 09/08/18 10:36 AM Result Value Ref Range PH-ART-POC 7.47 (H) 7.35 - 7.45 [id number] 45 35 - 45 MMHG PO2-ART-POC 437 (H) 80 - 100 MMHG Base Ex-ART-POC 9.0 MMOL/L O2 Sat-ART-POC 100.0 (H) 95 - 99 % [id number]-SEN-SLN 32.8 (H) 21 - 28 MMOL/L POC HEMATOCRIT Collection Time: 09/08/18 10:36 AM Result Value Ref Range Hemoglobin POC 8.2 (L) 12.0 - 15.0 GM/DL Hematocrit POC 24.0 (L) 36 - 45 % POC POTASSIUM Collection Time: 09/08/18 10:36 AM Result Value Ref Range Potassium-POC 3.6 3.5 - 5.1 MMOL/L POC SODIUM Collection Time: 09/08/18 10:36 AM Result Value Ref Range Sodium-POC 142 137 - 147 MMOL/L POC IONIZED CALCIUM Collection Time: 09/08/18 10:36 AM Result Value Ref Range Ionized Calcium-POC 1.05 1.0 - 1.3 MMOL/L POC GLUCOSE Collection Time: 09/08/18 11:24 AM Result Value Ref Range Glucose, POC 159 (H) 70 - 100 MG/DL POC BLOOD GAS ARTERIAL Collection Time: 09/08/18 11:26 AM Result Value Ref Range PH-ART-POC 7.48 (H) 7.35 - 7.45 [id number] 39 35 - 45 MMHG PO2-ART-POC 277 (H) 80 - 100 MMHG Base Ex-ART-POC 6.0 MMOL/L O2 Sat-ART-POC 100.0 (H) 95 - 99 % [id number]-NOU-HTC 29.2 (H) 21 - 28 MMOL/L POC HEMATOCRIT Collection Time: 09/08/18 11:26 AM Result Value Ref Range Hemoglobin POC 8.2 (L) 12.0 - 15.0 GM/DL Hematocrit POC 24.0 (L) 36 - 45 % POC POTASSIUM Collection Time: 09/08/18 11:26 AM Result Value Ref Range Potassium-POC 3.2 (L) 3.5 - 5.1 MMOL/L POC SODIUM Collection Time: 09/08/18 11:26 AM Result Value Ref Range Sodium-POC 143 137 - 147 MMOL/L POC IONIZED CALCIUM Collection Time: 09/08/18 11:26 AM Result Value Ref Range Ionized Calcium-POC 1.13 1.0 - 1.3 MMOL/L POC GLUCOSE Collection Time: 09/08/18 1:13 PM Result Value Ref Range Glucose, POC 160 (H) 70 - 100 MG/DL CBC Collection Time: 09/08/18 1:15 PM Result Value Ref Range White Blood Cells 10.6 4.5 - 11.0 K/UL RBC 3.62 (L) 4.0 - 5.0 M/UL Hemoglobin 10.9 (L) 12.0 - 15.0 GM/DL Hematocrit 32.3 (L) 36 - 45 % MCV 89.4 80 - 100 FL MCH 30.2 26 - 34 PG MCHC 33.8 32.0 - 36.0 G/DL RDW 14.4 11 - 15 % Platelet Count 137 (L) 150 - 400 K/UL MPV 8.6 7 - 11 FL BASIC METABOLIC PANEL Collection Time: 09/08/18 1:15 PM Result Value Ref Range Sodium 140 137 - 147 MMOL/L Potassium 3.5 3.5 - 5.1 MMOL/L Chloride 107 98 - 110 MMOL/L CO2 25 21 - 30 MMOL/L Anion Gap 8 3 - 12 Glucose 158 (H) 70 - 100 MG/DL Blood Urea Nitrogen 21 7 - 25 MG/DL Creatinine 1.14 (H) 0.4 - 1.00 MG/DL Calcium 8.7 8.5 - 10.6 MG/DL eGFR Non 48 (L) >60 mL/min eGFR 58 (L) >60 mL/min PROTIME INR (PT) Collection Time: 09/08/18 1:15 PM Result Value Ref Range INR 1.2 0.8 - 1.2 PTT (APTT) Collection Time: 09/08/18 1:15 PM Result Value Ref Range APTT 24.9 20.0 - 36.0 SEC MAGNESIUM Collection Time: 09/08/18 1:15 PM Result Value Ref Range Magnesium 2.3 1.6 - 2.6 mg/dL POC BLOOD GAS ARTERIAL Collection Time: 09/08/18 1:16 PM Result Value Ref Range PH-ART-POC 7.43 7.35 - 7.45 [id number] 41 35 - 45 MMHG PO2-ART-POC 143 (H) 80 - 100 MMHG Base Ex-ART-POC 3.0 MMOL/L O2 Sat-ART-POC 99.0 95 - 99 % Rglxzikyvvc-XCM-STM 27.0 21 - 28 MMOL/L POC HEMATOCRIT Collection Time: 09/08/18 1:16 PM Result Value Ref Range Hemoglobin POC 10.2 (L) 12.0 - 15.0 GM/DL Hematocrit POC 30.0 (L) 36 - 45 % POC POTASSIUM Collection Time: 09/08/18 1:16 PM Result Value Ref Range Potassium-POC 3.5 3.5 - 5.1 MMOL/L POC SODIUM Collection Time: 09/08/18 1:16 PM Result Value Ref Range Sodium-POC 143 137 - 147 MMOL/L POC IONIZED CALCIUM Collection Time: 09/08/18 1:16 PM Result Value Ref Range Ionized Calcium-POC 1.17 1.0 - 1.3 MMOL/L POC GLUCOSE Collection Time: 09/08/18 2:20 PM Result Value Ref Range Glucose, POC 151 (H) 70 - 100 MG/DL O2 SATURATION, MIXED VENOUS Collection Time: 09/08/18 2:23 PM Result Value Ref Range N4Mnn-Ihfhk Venous 58.8 % POTASSIUM Collection Time: 09/08/18 2:23 PM Result Value Ref Range Potassium 3.7 3.5 - 5.1 MMOL/L POC GLUCOSE Collection Time: 09/08/18 3:35 PM Result Value Ref Range Glucose, POC 148 (H) 70 - 100 MG/DL MAGNESIUM Collection Time: 09/08/18 5:35 PM Result Value Ref Range Magnesium 2.9 (H) 1.6 - 2.6 mg/dL POTASSIUM Collection Time: 09/08/18 5:35 PM Result Value Ref Range Potassium 3.7 3.5 - 5.1 MMOL/L POC GLUCOSE Collection Time: 09/08/18 5:38 PM Result Value Ref Range Glucose, POC 138 (H) 70 - 100 MG/DL POC BLOOD GAS ARTERIAL Collection Time: 09/08/18 5:41 PM Result Value Ref Range PH-ART-POC 7.41 7.35 - 7.45 [id number] 40 35 - 45 MMHG PO2-ART-POC 85 80 - 100 MMHG Base Ex-ART-POC 1.0 MMOL/L O2 Sat-ART-POC 97.0 95 - 99 % Tdisyfsnldg-KBF-XAI 25.3 21 - 28 MMOL/L POC GLUCOSE Collection Time: 09/08/18 6:49 PM Result Value Ref Range Glucose, POC 131 (H) 70 - 100 MG/DL BLOOD GASES, ARTERIAL Collection Time: 09/08/18 6:50 PM Result Value Ref Range pH-Arterial 7.40 7.35 - 7.45 pCO2-Arterial 39 35 - 45 MMHG pO2-Arterial 88 80 - 100 MMHG Base Deficit-Arterial 0.5 MMOL/L O2 Sat-Arterial 96.8 95 - 99 % Zufifboisnd-AOL-Ylx 24.0 21 - 28 MMOL/L O2 SATURATION, MIXED VENOUS Collection Time: 09/08/18 8:27 PM Result Value Ref Range U1Wsr-Duuqr Venous 64.5 % POTASSIUM Collection Time: 09/08/18 8:27 PM Result Value Ref Range Potassium 4.0 3.5 - 5.1 MMOL/L POC GLUCOSE Collection Time: 09/08/18 8:35 PM Result Value Ref Range Glucose, POC 130 (H) 70 - 100 MG/DL O2 SATURATION, MIXED VENOUS Collection Time: 09/09/18 12:17 AM Result Value Ref Range Z7Ukg-Rydaz Venous 65.1 % POC GLUCOSE Collection Time: 09/09/18 12:23 AM Result Value Ref Range Glucose, POC 119 (H) 70 - 100 MG/DL POC GLUCOSE Collection Time: 09/09/18 2:04 AM Result Value Ref Range Glucose, POC 127 (H) 70 - 100 MG/DL CBC Collection Time: 09/09/18 4:11 AM Result Value Ref Range White Blood Cells 10.5 4.5 - 11.0 K/UL RBC 3.59 (L) 4.0 - 5.0 M/UL Hemoglobin 10.9 (L) 12.0 - 15.0 GM/DL Hematocrit 32.1 (L) 36 - 45 % MCV 89.4 80 - 100 FL MCH 30.2 26 - 34 PG MCHC 33.8 32.0 - 36.0 G/DL RDW 14.3 11 - 15 % Platelet Count 159 150 - 400 K/UL MPV 9.0 7 - 11 FL BASIC METABOLIC PANEL Collection Time: 09/09/18 4:11 AM Result Value Ref Range Sodium 140 137 - 147 MMOL/L Potassium 3.9 3.5 - 5.1 MMOL/L Chloride 106 98 - 110 MMOL/L CO2 24 21 - 30 MMOL/L Anion Gap 10 3 - 12 Glucose 136 (H) 70 - 100 MG/DL Blood Urea Nitrogen 22 7 - 25 MG/DL Creatinine 1.39 (H) 0.4 - 1.00 MG/DL Calcium 9.4 8.5 - 10.6 MG/DL eGFR Non 38 (L) >60 mL/min eGFR 46 (L) >60 mL/min O2 SATURATION, MIXED VENOUS Collection Time: 09/09/18 4:11 AM Result Value Ref Range R1Znn-Nsvon Venous 64.1 % POC GLUCOSE Collection Time: 09/09/18 4:21 AM Result Value Ref Range Glucose, POC 136 (H) 70 - 100 MG/DL POC GLUCOSE Collection Time: 09/09/18 6:52 AM Result Value Ref Range Glucose, POC 133 (H) 70 - 100 MG/DL O2 SATURATION, MIXED VENOUS Collection Time: 09/09/18 8:48 AM Result Value Ref Range U3Hbx-Xnygi Venous 57.9 % POC GLUCOSE Collection Time: 09/09/18 8:56 AM Result Value Ref Range Glucose, POC 124 (H) 70 - 100 MG/DL Point of Care Testing: (Last 24 hours): Glucose: (!) 136 (09/09/18 9401) POC Glucose (Download): (!) 124 (09/09/18 5547) Radiology and Other Diagnostic Procedures Review: Pertinent radiology reviewed. I have seen, examined and reviewed data concerning this patient. I discussed the findings and plan of care with the [facility] ICU team. I spent 45 minutes in critical care time, excluding procedures today. Milan Barraza DO [employer] Anesthesiology and Critical Care [phone] * Tala Cazares, ROLLER EMBOSSER - 09/09/2018 9:43 AM CDT Cardiothoracic Surgery Critical Care Progress Note Ashlee Hoyt Today's Date: 09/09/2018 Admission Date: 09/08/2018 LOS: 1 day POD: 1 Procedure: VALVULOPLASTY MITRAL VALVE WITH CARDIOPULMONARY BYPASS AND PROSTHETIC RIN (CPT) TISSUE ABLATION AND RECONSTRUCTION OF ATRIA WITH CARDIOPULMONARY BYPASS - EXTENSIVE: 01236 (CPT) Principal Problem: S/P mitral valve repair Active Problems: Atrial fibrillation (HCC) Chronic diastolic heart failure (HCC) HTN (hypertension) Hyperlipemia Morbid obesity (HCC) Acute on chronic diastolic CHF (congestive heart failure), NYHA class 3 (HCC) H/O tricuspid valve annuloplasty S/P Maze operation for atrial fibrillation Assessment/Plan: Neuro Continue PRN Fentanyl, oxycodone with scheduled Tylenol. CV Underlying accelerated junctional 50's with sinus beats, on back up VVI 40, d/c atrial wire today (non-functional) history of afib, BP augmented with NTG, D/C PA cath, will resume Lasix 40 mg IV BID and Maxzide 50 mg daily, could add alpha uziel for BP control. Cont ASA 81 mg (hold for plts <80k) and statin. Hold BB and ACEI in the initial post op phase. Intra op ARNAUD LVEF normal. Resp Daily CXR bedside interpretation: lungs expanded without large effusion. Will await radiology report. Currently on 4L, Wean FiO2. Wears 2L home O2. Initiate IS, aggressive pulm toilet once extubated. Chest tubes in place will likely d/c later today, total 325 ml/out since OR. Renal Baseline Scr 1.25-->1.39 today. Monitor BMP, assess for JOSE F. Lasix 40 mg IV BID, V/STOL LANDING SIGNAL OFFICER Lasix 80 daily. GI - ADAT, start post op bowel regimen today. ID Continue standard post op antibiotic for prophylaxis, per CTS protocol. Heme Daily INR, start warfarin 5 mg today, Eliquis V/STOL [employer] OFFICER for atrial fib. Continue mechanical prophylaxis. FEN If creatinine < 2.0, replace Mg and K per CTS post op protocol. Hgb A1c 5.6 %. Insulin gtt [facility]ed [facility] Activity OOBTC. Early cardiac PT/OT. Prophylaxis Review: Lines: Yes; Arterial Line; Indication: Frequent blood draws and Continuous BP monitoring; Location: Radial Central Line; Indication: Hemodynamic monitoring; Type: Internal jugular Antibiotic Usage: No VTE: Mechanical prophylaxis; Foot pump Urinary Catheter: Yes; Retain cardoza due to: Need for accurate Intake and Output Disposition: The patient is post-cardiac surgery at at risk for life threatening deterioration. Patient is s/p valvuloplasty mitral valve with prosthetic ring with full MAZE with Dr. River. Keep in the ICU while on NTG for blood pressure, accelerated junctional rhthym, increase activity. I have seen, personally fully evaluated, and discussed patient with the critical care attending and cardiothoracic surgeon. The patient is critically ill, I spent 60 minutes (excluding time spent performing procedures) providing and personally directing critical care services including direct OR recovery, ventilator management, hemodynamic monitoring and management, lab and radiology review, medication review and management, fluid and electrolyte management and coordination of care. Tala Cazares APRN [facility] Intensive Care Pager [phone] 09/09/2018 Subjective: HPI: Ashlee Hoyt is a 68 y.o. female with a history of A. fib with RVR, chronic anticoagulation, acute on chronic diastolic heart failure, hypertension, morbid obesity, hyperlipidemia and respiratory failure. She was hospitalized in May with respiratory failure and wears home O2. She underwent valvuloplasty mitral valve with prosthetic ring with full MAZE with Dr. River. She remains in the ICU with accelerated junctional rhythm off pressor support. REVIEW OF SYSTEMS: Review of systems not obtained from patient due to patient factors. Objective: Medications: Scheduled Meds: acetaminophen (TYLENOL) tablet 1,000 mg 1,000 mg Oral Q6H* aspirin EC tablet 81 mg 81 mg Oral QDAY atorvastatin (LIPITOR) tablet 40 mg 40 mg Oral QDAY ceFAZolin (ANCEF) IVP 2 g 2 g Intravenous Q8H* furosemide (LASIX) injection 40 mg 40 mg Intravenous BID(08-14) senna/docusate (SENOKOT-S) tablet 2 tablet 2 tablet Oral BID triamterene-hydrochlorothiazide (MAXZIDE) 75-50 mg tablet 1 tablet 1 tablet Oral QDAY warfarin (COUMADIN) tablet 5 mg 5 mg Oral QHS Continuous Infusions: nitroGLYCERIN 50 mg/D5W 250 mL infusion 0.5 mcg/kg/min (09/09/18 0842) sodium chloride 0.9 % infusion 30 mL/hr at 09/08/18 1241 PRN and Respiratory Meds:[START ON 09/13/2018] acetaminophen Q6H PRN OR [ START ON 09/13/2018] acetaminophen Q6H PRN, alum/mag hydroxide/simeth Q4H PRN, bisacodyl QDAY PRN, fentaNYL citrate PF Q1H PRN, hydrALAZINE Q6H PRN, lidocaine PF PRN, milk of magnesia (CONC) QDAY PRN, ondansetron Q6H PRN OR ondansetron (ZOFRAN) IV Q6H PRN, oxyCODONE Q4H PRN, potassium chloride SR PRN OR potassium chloride PRN OR potassium chloride in water PRN Vital Signs: Last Filed Vital Signs: 24 Hour Range Temp: 37 C (98.6 F) (09/09 700) Pulse: 70 (09/09 700) Respirations: 18 PER MINUTE (09/09 700) SpO2: 95 % (09/09 700) O2 Delivery: Nasal Cannula (09/09 700) SpO2 Pulse: 70 (09/09 700) ABP: (100-148)/(50-82) Temp: [36.1 C (97 F)-37.4 C (99.3 F)] Pulse: [70-81] Respirations: [0 PER MINUTE-25 PER MINUTE] SpO2: [93 %-99 %] O2 Delivery: Nasal Cannula Intensity Pain Scale (Self Report): 5 (09/09/18 0400) Vitals: 09/08/18 0742 09/09/18 0600 Weight: 114.8 kg (253 lb 1.4 oz) 116.7 kg (257 lb 4.4 oz) Intake/Output Summary: (Last 24 hours) Intake/Output Summary (Last 24 hours) at 09/09/18 0943 Last data filed at 09/09/18 0900 Gross per 24 hour Intake 5950.51 ml Output 1562 ml Net 4388.51 ml Physical Exam: Neuro: Awake and alert, ANTOINE Cardiovascular: RRR no rub or murmur Respiratory: LS CTA jocelyn - diminished in the bases GI: soft, NT, hypoactive BS Extremities: No Edema Incisions: Sternal incision dressing, dry and intact. No crepitus or sternal instability. Chest Tubes OUTPUT/24 HOURSAIR LEAK PRESENT Mediastinal 325 No Mediastinal Pleural Pleural Laboratory: LABS: Recent Labs 09/07/18 1024 09/08/18 1315 09/08/18 1423 09/08/18 1735 09/08/18202609/09/18 0411 NA 142 140 -- -- -- 140 K 4.0 3.5 3.7 3.7 4.0 3.9 CL 101 107 -- -- -- 106 CO2 31* 25 -- -- -- 24 GAP 10 8 -- -- -- 10 BUN 25 21 -- -- -- 22 CR 1.25* 1.14* -- -- -- 1.39* GLU 93 158* -- -- -- 136* CA 10.2 8.7 -- -- -- 9.4 ALBUMIN 4.3 -- -- -- -- -- MG -- 2.3 -- 2.9* -- -- HGBA1C 5.6 -- -- -- -- -- Recent Labs 09/07/18 1024 09/08/18 1315 09/09/18 0411 WBC 4.7 10.6 10.5 HGB 12.2 10.9* 10.9* HCT 36.8 32.3* 32.1* PLTCT 187 137* 159 INR 1.1 1.2 -- PTT 29.6 24.9 -- AST 22 -- -- ALT 15 -- -- ALKPHOS 90 -- -- Estimated Creatinine Clearance: 51.7 mL/min (A) (based on SCr of 1.39 mg/dL (H)) . Vitals: 09/08/18 0742 09/09/18 0600 Weight: 114.8 kg (253 lb 1.4 oz) 116.7 kg (257 lb 4.4 oz) Recent Labs 09/08/18 1850 PHART 7.40 PO2ART 88 Radiology and Other Diagnostic Procedures Review: Reviewed * David River MD - 09/09/2018 7:58 AM CDT Off to good start. Etc. noted junctional rhythm with occasional sinus beats. We will begin diuretics and anticoagulation * Reuben Gruber MD - 09/09/2018 5:29 AM CDT 68F h/o A fib, NYHA class III from mitral regurgitation s/p mitral valve repair with 27mm [employer]onic flexible band, DeVega annuloplasty of TV and Maze procedure on 09/08/18. Extubated yesterday late afternoon. Doing well on 4L [place], on CPAP at night. Pain controlled. Paced at 70, underlying rhythm went from junctional to afib with rates in the 50's this am. Systolic murmur, CTAB. UOP slowing down, 10-25ml/hr. Received total 250 albumin since surgery. Mixed venous stable ~65. PAP 42/22. On Nitro 0.3mcg/kg/min. Labs reviewed, Cr 1. 39, baseline ~1.25. On lasix at home 80mg daily. CXR appears congested with poor inspiratory effort. Will plan on diuresing today, place her on PO BP meds and wean off Nitro. Ambulate and remove CTs later today if output remains low. Reuben Gruber MD [phone] * Mikey Leyva RN - 09/09/2018 5:20 AM CDT Patient reassessment completed. A&Ox4. PRN pain meds administered. Afebrile. AV paced rate of 70, underlying rhythm now AFib rate 50's. UOP <30ml previous 2 hours, Dr. Gruber updated and discussed lab results. Will continue to monitor. Current gtts: Insulin, Nitro, MIV * Mikey Leyva RN - 09/09/2018 12:00 AM CDT Patient reassessment completed. A&Ox4. States pain is tolerable at this time. AV Paced on monitor. Dangle at side of bed without event. UOP>30ml/hr. Minimal CT output. Will continue to monitor. Current gtts: Insulin, MIV * Mikey Leyva RN - 09/08/2018 8:00 PM CDT Patient assessment completed. Drowsy, oriented x4. Afebrile. AV paced on monitor rate of 70. UOP >30ml/hr. Minimal CT output at this time. Will continue to monitor. Current gtts: Insulin, MIV * Tien Gaitan RN - 09/08/2018 6:18 PM CDT 1750 - Pt extubated to 4LNC, oriented x4, OG removed. Fentanyl given for pain. Restraints off. * Vito Perez RT - 09/08/2018 5:55 PM CDT RT Adult Assessment Note NAME:Ashlee Hoyt :1950 AGE: 68 y.o. ADMISSION DATE: 09/08/2018 DAYS ADMITTED: LOS: 0 days RT Treatment Plan: Protocol Plan: Procedures PEP Therapy: Q4h PEP While Awake PAP: Q4h PAP While Awake IPPB: Place a nursing order for "IS Q1h While Awake" for any of Lung Expansion indicators Oxygen/Humidity: O2 to keep SpO2 > 92% Monitoring: Pulse oximetry BID & PRN Additional Comments: Impressions of the patient: pt. extubated; RN at bedside to manage pain Intervention(s)/outcome(s): standard CTS RT Protocol therapies initiated Patient education that was completed: pt. encouraged to deep breath and cough Recommendations to the care team: none at this time Vital Signs: Pulse: Pulse: 80 RR: Respirations: 22 PER MINUTE SpO2: SpO2: 97 % O2 Device: $$ O2 Device: Cannula Liter Flow: O2 Liter Flow: 4 lpm O2%: O2 Percent: 40 % Breath Sounds: Respiratory Effort: Respiratory Effort: Non-Labored * Tien Gaitan RN - 09/08/2018 4:24 PM CDT Pt reassessed. ANTOINE, follow commands. Off NTG, precedex off. Checking mixed venous in place of CI now per NUCLEAR ENGINEERING TECHNICIAN Tala Zheng Will trial as able. VSS. Will continue to monitor. * Unique Patel RN - 09/08/2018 3:30 PM CDT CARDIOPULMONARY REHABILITATION INPATIENT ASSESSMENT Cardiac Rehabilitation Staff: Dior Patel RN Discharge Date: Demographics Pre-admit Dx: Mitral Regurg Date of Admission: 09/08/2018 Room: [place] [id number] : 1950 Insurance: Primary: Medicare Secondary: unknown Address: [address] [place] [id number] Patient (home) [phone] (work ) Marital Status: Occupation: Unknown ED Contact: Vito Hoyt ED Phone #: [phone] CTS: [employer]ta [employer]: Cardiac Procedures and Events Valve: 09/08/18 Procedure: VALVULOPLASTY MITRAL VALVE WITH CARDIOPULMONARY BYPASS AND PROSTHETIC RIN (CPT) TISSUE ABLATION AND RECONSTRUCTION OF ATRIA WITH CARDIOPULMONARY BYPASS - EXTENSIVE: 63612 (CPT) Risk Factors Risk Factors: Hypertension, Obesity, Hyperlipidemia BP: 137/78 Height: 167.6 cm (66") Weight: 114.8 kg (253 lb 1.4 oz) BMI (Calculated): 40.85 Medical History has a past medical history of Acute on chronic diastolic CHF (congestive heart failure), NYHA class 3 (HCC); Atrial fibrillation (HCC); Dyspnea; Gastrointestinal disorder; HTN (hypertension); acute respiratory failure (2017); Hyperlipemia; Mitral regurgitation; Morbid obesity (HCC); and Sleep apnea. Labs Hemoglobin A1C Date Value Ref Range Status 09/07/2018 5.6 4.0 - 6.0 % Final Comment: The ADA recommends that most patients with type 1 and type 2 diabetes maintain an A1c level <7%. Heart Resource Manual Given: Teaching Completed: Outpatient Cardiopulmonary Rehabilitation OPCR: Referral Faxed to: Date Faxed: Location: If [facility], Sent to Staff: Unique Patel RN 09/08/2018 * Tala Cazares, ROLLER EMBOSSER - 09/08/2018 1:27 PM CDT Cardiothoracic Surgery Critical Care Progress Note Ashlee Hoyt Today's Date: 09/08/2018 Admission Date: 09/08/2018 LOS: 0 days POD: 0 Procedure: VALVULOPLASTY MITRAL VALVE WITH CARDIOPULMONARY BYPASS AND PROSTHETIC RIN (CPT) TISSUE ABLATION AND RECONSTRUCTION OF ATRIA WITH CARDIOPULMONARY BYPASS - EXTENSIVE: 82289 (CPT) Principal Problem: Mitral regurgitation Active Problems: Atrial fibrillation (HCC) Chronic diastolic heart failure (HCC) HTN (hypertension) Hyperlipemia Morbid obesity (HCC) Acute on chronic diastolic CHF (congestive heart failure), NYHA class 3 (HCC) Assessment/Plan: Neuro Continue to wean from sedation to work towards extubation. Continue PRN Fentanyl, oxycodone with scheduled Tylenol. CV Underlying accelerated junctional 50's, A paced at 80, history of afib, BP 128/76, CI 1.62, PA 32/24, CVP 12. NTG @ 0.75 mcg/kg/min. Cont ASA 81 mg (hold for plts <80k) and statin. Hold BB and ACEI in the initial post op phase. Intra op ARNAUD LVEF normal. Resp Daily CXR bedside interpretation: lungs expanded without large effusion. Will await radiology report. ABG 7.43/41/143/27.0. Wean FiO2. Wears 2L home O2. Initiate IS, aggressive pulm toilet once extubated. Chest tubes in place. Renal Baseline Scr 1.25. Monitor BMP, assess for JOSE F. GI - ADAT, start post op bowel regimen on POD 1. ID Continue standard post op antibiotic for prophylaxis, per CTS protocol. Heme Check post op CBC/coags, assess for coagulopathy. Hold DVT prophylaxis until cleared by CTS, continue mechanical prophylaxis. V/STOL [employer]NAL OFFICER Eliquis. FEN If creatinine < 2.0, replace Mg and K per CTS post op protocol. Hgb A1c 5.6 %. Insulin gtt per Modified Pratt Protocol. Activity HOB to 30 degrees over 1st postop hour. Bedrest until extubated, dangle 6 hours after extubation. Early cardiac PT/OT. Prophylaxis Review: Lines: Yes; Arterial Line; Indication: Frequent blood draws and Continuous BP monitoring; Location: Radial Central Line; Indication: Hemodynamic monitoring; Type: Internal jugular Antibiotic Usage: No VTE: Mechanical prophylaxis; Foot pump Urinary Catheter: Yes; Retain cardoza due to: Need for accurate Intake and Output Disposition: The patient is post-cardiac surgery at at risk for life threatening deterioration. Patient is critically ill s/p valvuloplasty mitral valve with prosthetic ring with full MAZE with Dr. River. I have seen, personally fully evaluated, and discussed patient with the critical care attending and cardiothoracic surgeon. The patient is critically ill, I spent 70 minutes (excluding time spent performing procedures) providing and personally directing critical care services including direct OR recovery, ventilator management, hemodynamic monitoring and management, lab and radiology review, medication review and management, fluid and electrolyte management and coordination of care. Tala Cazares APRN [facility] Intensive Care Pager [phone] 09/08/2018 Subjective: HPI: Ashlee Hoyt is a 68 y.o. female with a history of A. fib with RVR, chronic anticoagulation, acute on chronic diastolic heart failure, hypertension, morbid obesity, hyperlipidemia and respiratory failure. She was hospitalized in May with respiratory failure and wears home O2. She underwent valvuloplasty mitral valve with prosthetic ring with full MAZE with Dr. River. REVIEW OF SYSTEMS: Review of systems not obtained from patient due to patient factors. Objective: Medications: Scheduled Meds: acetaminophen (TYLENOL) tablet 1,000 mg 1,000 mg Oral Q6H* [START ON 09/09/2018] amiodarone (CORDARONE) tablet 400 mg 400 mg Oral BID aspirin EC tablet 81 mg 81 mg Oral QDAY [START ON 09/09/2018] atorvastatin (LIPITOR) tablet 40 mg 40 mg Oral QDAY ceFAZolin (ANCEF) IVP 2 g 2 g Intravenous Q8H* magnesium sulfate 4 g/50 mL IVPB 4 g Intravenous ONCE [START ON 09/09/2018] senna/docusate (SENOKOT-S) tablet 2 tablet 2 tablet Oral BID Continuous Infusions: aminocaproic acid (AMICAR) 12.5 g in sodium chloride 0.9% (NS) IV infusion 2 g/hr (09/08/18 1240) insulin regular (NOVOLIN R) 100 Units in sodium chloride 0.9% (NS) 100 mL IV drip (std conc) 1 Units/hr (09/08/18 1320) nitroGLYCERIN 50 mg/D5W 250 mL infusion 0.75 mcg/kg/min (09/08/18 1310) norepinephrine (LEVOPHED) 4 mg in dextrose 5% (D5W) 250 mL IV drip (std conc ) Stopped (09/08/18 1241) sodium chloride 0.9 % infusion 30 mL/hr at 09/08/18 1241 PRN and Respiratory Meds:[START ON 09/13/2018] acetaminophen Q6H PRN OR [ START ON 09/13/2018] acetaminophen Q6H PRN, alum/mag hydroxide/simeth Q4H PRN, atropine Once PRN, bisacodyl QDAY PRN, fentaNYL citrate PF Q1H PRN, hydrALAZINE Q6H PRN, lidocaine PF PRN, milk of magnesia (CONC) QDAY PRN, ondansetron Q6H PRN OR ondansetron (ZOFRAN) IV Q6H PRN, oxyCODONE Q4H PRN, potassium chloride SR PRN OR potassium chloride PRN OR potassium chloride in water PRN Vital Signs: Last Filed Vital Signs: 24 Hour Range BP: 137/78 (09/08 0715) Temp: 36.3 C (97.3 F) (09/08 1325) Pulse: 80 (09/08 1325) Respirations: 0 PER MINUTE (09/08 1325) SpO2: 96 % (09/08 1325) O2 Delivery: Endotracheal Tube (Oral) (09/08 1300) SpO2 Pulse: 80 (09/08 1325) Height: 167.6 cm (66") (09/08 0742) BP: (137-148)/(78-79) ABP: (100-142)/(50-82) Temp: [36.1 C (97 F)-36.9 C (98.4 F)] Pulse: [59-81] Respirations: [0 PER MINUTE-15 PER MINUTE] SpO2: [96 %-100 %] O2 Delivery: Endotracheal Tube (Oral) Vitals: 09/08/18 0742 Weight: 114.8 kg (253 lb 1.4 oz) Intake/Output Summary: (Last 24 hours) Intake/Output Summary (Last 24 hours) at 09/08/18 1327 Last data filed at 09/08/18 1300 Gross per 24 hour Intake 3601.53 ml Output 770 ml Net 2831.53 ml Physical Exam: Neuro: Sedated, ANTOINE Cardiovascular: RRR no rub or murmur Respiratory: LS CTA jocelyn - diminished in the bases GI: soft, NT, hypoactive BS Extremities: No Edema Incisions: Sternal incision dressing, dry and intact. No crepitus or sternal instability. Chest Tubes OUTPUT/24 HOURSAIR LEAK PRESENT Mediastinal Mediastinal Pleural Pleural Artificial airway: Endotracheal Tube Vent weaning trial: Per protocol Laboratory: LABS: Recent Labs 09/07/18 1024 NA 142 K 4.0 CL 101 CO2 31* GAP 10 BUN 25 CR 1.25* GLU 93 CA 10.2 ALBUMIN 4.3 HGBA1C 5.6 Recent Labs 09/07/18 1024 WBC 4.7 HGB 12.2 HCT 36.8 PLTCT 187 INR 1.1 PTT 29.6 AST 22 ALT 15 ALKPHOS 90 Estimated Creatinine Clearance: 57 mL/min (A) (based on SCr of 1.25 mg/dL (H)). Vitals: 09/08/18 0742 Weight: 114.8 kg (253 lb 1.4 oz) No results for input(s): PHART, PO2ART in the last 72 hours. Invalid input(s): PC02A Radiology and Other Diagnostic Procedures Review: Reviewed * Tien Gaitan, RIMMA - 09/08/2018 1:00 PM CDT Pt received by bed from OR, attached to vent and monitor, assessment completed, see doc flowsheet for details. Sedated, precedex gtt. Apaced @ 80bpm, low CI treating with 5% albumin per NUCLEAR ENGINEERING TECHNICIAN Tala, NTG gtt. Vent at 100% fiO2. OG to LIS, clear drainage, absent BS x4. Cardoza cath to DD, clear yellow drainage. Med CT x2 -20cm, SS drainage. VSS. Will monitor. * Kayley Paez RN - 09/07/2018 12:04 PM CDT Reported to Lorene Andrade PA-C pt's pre operative UA results and patient denies UTI s/s. Orders for Cipro 500 mg PO today and tomorrow am with sip of water. Patient verbalized understanding for prescription. * Kayley Paez RN - 09/07/2018 12:03 PM CDT Reviewed pre op instructions with patient and her family. Instructions included arrival time (0630)/location, NPO at VT, CHG 4 % shower x 2 and plan of care. Patient and family verbalized understanding. in this encounter H&P Notes * Ginette Moffett PA-C - 09/08/2018 7:00 AM CDT History and Physical Update Note Name: Ashlee Hoyt Allergies: Patient has no known allergies. Primary Care Physician: Unique Frye Verified Lab/Radiology/Other Diagnostic Tests: Hematology: Lab Results Component Value Date HGB 12.2 09/07/2018 HCT 36.8 09/07/2018 PLTCT 187 09/07/2018 WBC 4.7 09/07/2018 MCV 89.6 09/07/2018 MCHC 33.0 09/07/2018 MPV 8.3 09/07/2018 RDW 14.2 09/07/2018 , Coagulation: Lab Results Component Value Date PTT 29.6 09/07/2018 INR 1.1 09/07/2018 , General Chemistry: Lab Results Component Value Date NA 142 09/07/2018 K 4.0 09/07/2018 CL 101 09/07/2018 GAP 10 09/07/2018 BUN 25 09/07/2018 CR 1.25 09/07/2018 GLU 93 09/07/2018 CA 10.2 09/07/2018 ALBUMIN 4.3 09/07/2018 TOTBILI 0.7 09/07/2018 , Enzymes: Lab Results Component Value Date AST 22 09/07/2018 ALT 15 09/07/2018 ALKPHOS 90 09/07/2018 , HgbA1C: Lab Results Component Value Date HGBA1C 5.6 09/07/2018 , Lipid Profile: No results found for: CHOL, TRIG, HDL, LDL, VLDL and Blood Bank: Results for ASHLEE HOYT ( ) as of 09/08/2018 07:08 Ref. Range 09/07/2018 10:24 Record Check Unknown 2ND TYPE REQUIRED ABO/RH(D) Unknown A NEG Antibody Screen Unknown NEG Crossmatch Expires Unknown 09/10/2018 Units Ordered Unknown 0 BNP: 323 Last Dose Beta Blockers/Anticoagulants: Last dose of Beta Uziel: Date 09/08/18 - coreg 3.125mg , Last dose of other Anticoagulant Date Eliquis 09/01/18 Point of Care Testing: (Last 24 hours): I have examined the patient, and there are no significant changes in their condition, from the previous H&P performed on 08/21/18. She was given Cipro 500 mg x 2 doses for positive UA. She denies dysuria, hematuria, fevers, chills, or night sweats. The patient has been NPO since midnight. Her consent for MVR/Maze is signed and on the chart. She has no further questions and is eager to proceed with surgery. Patient Active Problem List Diagnosis Date Noted Acute on chronic diastolic CHF (congestive heart failure), NYHA class 3 (HCC ) Atrial fibrillation (HCC) Chronic diastolic heart failure (HCC) HTN (hypertension) Hyperlipemia Morbid obesity (HCC) Mitral regurgitation 08/01/2018 Ginette Moffett PA-C Pager [phone] * Daniel Alves PA-C - 09/07/2018 9:10 AM CDT The original H&P below was performed and dictated by Brianne HINKLE and Dr. River. Daniel Alves PA-C Pager [phone] Date of Service: 08/21/2018 Subjective: Ashlee Hoyt is a 68 y.o. female. History of Present Illness Thank you for the referral of your pleasant patient Ashlee Hoyt. As you know Ashlee Hoyt is a 68 y.o. female who you have been following for MRRosio She has a history of A. fib with RVR, chronic anticoagulation, acute on chronic diastolic heart failure, hypertension, morbid obesity, hyperlipidemia and respiratory failure. She was hospitalized in May with respiratory failure and recurrent pneumonia. She did complain of some mild chest discomfort and a nuclear stress test was performed which was abnormal. She was noted to be in atrial fibrillation during her stress test. She had had palpitations in the past but no documented atrial fibrillation. Outside hospital transthoracic echocardiogram performed June 22, 2018 revealed ejection fraction of 55-65%, grade 1 diastolic dysfunction, normal aortic valve, mild MR and mild TR. She was placed on anticoagulation as well as antiarrhythmic was scheduled for a cardioversion. Outside hospital cardiac catheterization performed June 23, 2018 revealed normal coronary arteries. ARNAUD performed during her cardioversion on July 20, 2018 revealed a normal ejection fraction, moderately dilated left atrium, normal aortic valve, severe mitral regurgitation and mild TR. Her cardioversion was unsuccessful at that time. ARNAUD performed here today was reviewed by Dr. River. Pulmonary function test performed August 09, 2018 revealed an FEV1 of 1.81 which was 70% predicted and a DLCO of 71%. CTA chest 06/22/18 revealed no PE, cardiac enlargement with central vascular congestion and borderline pulmonary edema with bilateral pleural effusions. Overall her symptoms have included fatigue, decreased energy level, lower extremity edema, lightheadedness and occasional chest pressure. She lives at home independently with her and prior to her hospitalization did not require oxygen. Since discharge she has remained on O2 at 2 L per nasal cannula continuously and was instructed to do very little activity. She was placed on diuretics at that time but has noticed little difference in her lower extremity edema since then. Imaging was reviewed at length today by Dr. River. These results were discussed with the patient at length. She is here today to discuss possible surgical interventions. Prelim STS Procedure: MV Replacement Only Risk of Mortality: 2.569% Morbidity or Mortality: 19.305% Long Length of Stay: 9.605% Short Length of Stay: 21.395% Permanent Stroke: 1.199% Prolonged Ventilation: 13.292% DSW Infection: 0.493% Renal Failure: 5.557% Reoperation: 7.264% Procedure: MV Repair Risk of Mortality: 1.391% Morbidity or Mortality: 13.908% Long Length of Stay: 6.44% Short Length of Stay: 33.504% Permanent Stroke: 1.199% Prolonged Ventilation: 8.333% DSW Infection: 0.493% Renal Failure: 3.752% Reoperation: 5.566% HAS-BLED score of 3. Review of Systems Constitution: Negative. HENT: Negative. Eyes: Negative. Cardiovascular: Positive for dyspnea on exertion. Respiratory: Positive for shortness of breath. Endocrine: Negative. Hematologic/Lymphatic: Negative. Skin: Negative. Musculoskeletal: Negative. Gastrointestinal: Positive for diarrhea and flatus. Genitourinary: Negative. Neurological: Positive for headaches. Psychiatric/Behavioral: Negative. Objective: albuterol (PROAIR HFA, VENTOLIN HFA, OR PROVENTIL HFA) 90 mcg/actuation inhaler Inhale 2 puffs by mouth into the lungs every 6 hours as needed for Wheezing or Shortness of Breath. Shake well before use. amLODIPine (NORVASC) 5 mg tablet Take 5 mg by mouth daily. apixaban (ELIQUIS) 5 mg tablet Take 5 mg by mouth twice daily. aspirin EC 81 mg tablet Take 81 mg by mouth daily. Take with food. carvedilol (COREG) 3.125 mg tablet Take 3.125 mg by mouth twice daily. Take with food. cloNIDine (CATAPRESS) 0.2 mg tablet Take 0.2 mg by mouth daily. diltiazem CD (CARDIZEM CD) 120 mg capsule Take 120 mg by mouth daily. furosemide (LASIX) 40 mg tablet Take 80 mg by mouth every morning. potassium chloride SR (K-DUR) 10 mEq tablet Take 20 mEq by mouth daily. Take with a meal and a full glass of water. Vitals: 08/21/18 1239 BP: 142/86 Pulse: 58 SpO2: 98% Weight: 116.1 kg (255 lb 14.4 oz) Height: 1.676 m (5' 6") Body mass index is 41.3 kg/m. Past Medical History: Diagnosis Date Acute on chronic diastolic CHF (congestive heart failure), NYHA class 3 (HCC ) Atrial fibrillation (HCC) Dyspnea HTN (hypertension) Hyperlipemia Mitral regurgitation Morbid obesity (HCC) Past Surgical History: Procedure Laterality Date CARDIAC CATHERIZATION 06/23/2018 [facility]- normal coronaries CARDIOVERSION 07/20/2018 Unsuccessful TRANSESOPHAGEAL ECHOCARDIOGRAM 07/20/2018 EYE SURGERY Left FOOT SURGERY Right TUBAL LIGATION No Known Allergies Social History Social History Marital status: Spouse name: N/A Number of children: 3 Years of education: N/A Social History Main Topics Smoking status: Never Smoker Smokeless tobacco: Never Used Alcohol use No Drug use: No Sexual activity: Not on file Other Topics Concern Not on file Social History Narrative No narrative on file Family History Problem Relation Age of Onset Cancer Father Heart Disease Father 66 Diabetes Brother Heart Disease Brother Hypertension Mother Physical Exam Constitutional: She is oriented to person, place, and time. She appears ill. morbid obesity HENT: Head: Normocephalic and atraumatic. Eyes: Pupils are equal, round, and reactive to light. Conjunctivae and EOM are normal. Neck: Normal range of motion. Neck supple. Cardiovascular: S1 normal and S2 normal. An irregularly irregular rhythm present. Murmur heard. Pulmonary/Chest: Effort normal and breath sounds normal. O2 @ 2L per NC Abdominal: Soft. Bowel sounds are normal. obese, round, soft, nontender Musculoskeletal: Normal range of motion. wheelchair Neurological: She is alert and oriented to person, place, and time. Skin: Skin is warm and dry. Psychiatric: She has a normal mood and affect. Her behavior is normal. Judgment and thought content normal. Assessment: 1. Severe mitral regurgitation 2. Acute on chronic diastolic heart failure, NYHA class 3 3. Morbid obesity 4. A.fib 5. Chronic anticoagulation 6. HTN 7. Hyperlipidemia Will obtain CTA images from [facility]. Will plan for open MV repair, LLAA and cryomaze. MANAN Simon 08/21/18 @ 1340. Assessment and Plan: I performed a history and physical examination of the patient and discussed his management with the midlevel provider. I reviewed the midlevel provider note and agree with the documented findings and plan of care. The patient's symptoms include severe shortness of breath and acute on chronic diastolic heart failure with [place] heart association class III symptoms, and this is consistent with severe mitral valve insufficiency. Her mitral valve insufficiency appears to be functional. Her left atrium is quite dilated. Her ventricular function remains normal. I suspect that this lady has had long- standing atrial fibrillation and that this has affected her mitral valve. I agree that mitral valve repair or replacement, as well as a maze ablation procedure is indicated. The benefits (symptomatic relief, prolongation of life expectancy) and risks (including, but not limited to , stroke, renal failure, blood product transfusion and infection) were all clearly explained to the patient who voiced understanding. The risk profile documented above was specifically discussed with the patient, and all questions were answered to the patient's satisfaction. Will proceed with surgery electively. In addition, there is a report of a questionable aortic enlargement at the mid ascending aorta and I will review her CTA from [facility] to investigate this further. I truly appreciate the opportunity of taking care of your delightful patient. Thank you very much for the kind referral. We will keep you updated. Sincerely, David River MD Cardiovascular and Thoracic Surgery [facility] [place], [place] [email or web address]. in this encounter Consult Notes * Torrey Temple MD - 09/15/2018 9:33 AM CDT Associated Order(s): CONSULT REHABILITATION MEDICINE PHYSICIAN Rehabilitation Medicine Attending Physician Attestation: Agree with resident, with exceptions as noted in blue font and as appropriate. I personally performed edmonds portions of the history and exam. I discussed the case with the resident and concur with the resident's documentation of history, physical assessment and treatment plan unless otherwise noted. Torrey Temple MD Physical Medicine & Rehabilitation Consult Note Date of Service: 09/15/2018 Ashlee Hoyt is a 68 y.o. female. : 1950 Primary Insurance: MEDICARE Secondary Insurance: [employer] [place] Tertiary Insurance: Financial Class: Medicare Date of Admission: 09/08/2018 Referring Physician: David River MD Reason for Consult: evaluate for Post-Acute Rehab/Placement Precautions: Fall, . Weight bearing Precautions: Sternal Active Problems Debility Impaired mobility and ADLs Impaired transfers Gait abnormality Generalized weakness Mitral Regurgitation s/p MV valvuloplasty A-Fib s/p MAZE Assessment & Plan Ashlee Hoyt is a 68 y.o. female admitted to [facility] on 09/08/2018 with the following issues: debility due to CHF , Mitral Regurgitation, A-Fib Impairments: poor activity tolerance and weakness Activity Limitations: transfers, ambulation and stairs Participation Restrictions: unable to return home safely Post-acute care rehabilitation needs: -Patient has therapeutic goals in PT and OT but borderline complexity to warrant daily physician oversight at a IPR. Concern that pt would be able to tolerate 3 hours of therapy a day and thus qualify for IPR. Agree with referral to [facility]. Will continue to follow as patient becomes medically stable and progresses with therapy. Other recommendations (bowel, bladder, skin, pain, etc): Pain: Patient would benefit from pre-treatment of pain prior to therapies and possibly scheduling Tylenol 650mg-1g TID while awake for improved pain and function (If LFT is WNL) Bowel:Recommend bowel regimen with Senokot 2 tabs QHS and Colace 100-200mg daily while on opiate pain medications +/- Miralax daily PRN Bladder: Voiding independently Skin/MSK: Given relative immobility and/or risk for contractures and skin breakdown, continue passive range of motion ~twice daily (partially performed by therapists), progressing as able to active range of motion, and functional activities. Recommend HOB > 30 degrees to reduce shearing, turning Q2 hours while supine in bed, pressure relief [id number] in seated position, PRAFOs for pressure relief and to prevent contractures Papito Tamayo, DO Rehab Consult Pager: [phone] History of Present Illness CC: Mitral Regurgitation, A-Fib Hospital Course: Ashlee Hoyt is a 68 y/o female PMHx of A.fib w/RVR on chronic anticoagulation, Mitral regurgitation, CHF, HTN, HLD, obesity s/p mitral valve valvuloplasty and Maze procedure 09/08 per . Post op course complicated by JOSE F on CKD, recently transitioned from IV to PO lasix. Pt transferred to floor 09/13. Rehab consulted for post acute rehab/placement. 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 Past Medical History Past Medical History: Diagnosis Date Acute on chronic diastolic CHF (congestive heart failure), NYHA class 3 (HCC ) Atrial fibrillation (HCC) Dyspnea Gastrointestinal disorder diverticulosis HTN (hypertension) Hx of acute respiratory failure 05/2018 2 liters NC continuously Hyperlipemia Mitral regurgitation Morbid obesity (HCC) Sleep apnea CPAP use Past Surgical History Past Surgical History: Procedure Laterality Date CARDIAC CATHERIZATION 06/23/2018 [facility]- normal coronaries CARDIOVERSION 07/20/2018 Unsuccessful TRANSESOPHAGEAL ECHOCARDIOGRAM 07/20/2018 MITRAL VALVULOPLASTY N/A 09/08/2018 VALVULOPLASTY MITRAL VALVE WITH CARDIOPULMONARY BYPASS AND PROSTHETIC RING performed by David River MD at [facility] HX MAZE N/A 09/08/2018 TISSUE ABLATION AND RECONSTRUCTION OF ATRIA WITH CARDIOPULMONARY BYPASS - EXTENSIVE performed by David River MD at [facility] EYE SURGERY Left FOOT SURGERY Right TUBAL LIGATION Family\\Social History Social History Social History Marital status: Spouse name: N/A Number of children: 3 Years of education: N/A Social History Main Topics Smoking status: Never Smoker Smokeless tobacco: Never Used Alcohol use No Drug use: No Sexual activity: Not on file Other Topics Concern Not on file Social History Narrative No narrative on file Family History Problem Relation Age of Onset Cancer Father Heart Disease Father 66 Diabetes Brother Heart Disease Brother Hypertension Mother Medications: amLODIPine (NORVASC) tablet 10 mg 10 mg Oral QDAY aspirin EC tablet 81 mg 81 mg Oral QDAY atorvastatin (LIPITOR) tablet 40 mg 40 mg Oral QDAY carvedilol (COREG) tablet 6.25 mg 6.25 mg Oral BID doxazosin (CARDURA) tablet 2 mg 2 mg Oral QDAY furosemide (LASIX) tablet 40 mg 40 mg Oral QDAY polyethylene glycol 3350 (MIRALAX) packet 17 g 1 packet Oral BID senna/docusate (SENOKOT-S) tablet 2 tablet 2 tablet Oral BID triamterene-hydrochlorothiazide (MAXZIDE) 75-50 mg tablet 1 tablet 1 tablet Oral QDAY warfarin (COUMADIN) tablet 3 mg 3 mg Oral QHS PRN Medications: acetaminophen Q6H PRN OR acetaminophen Q6H PRN, alum/mag hydroxide/simeth Q4H PRN, bisacodyl QDAY PRN, hydrALAZINE Q6H PRN, metoclopramide (REGLAN) IV Q6H PRN, milk of magnesia (CONC) QDAY PRN, ondansetron Q6H PRN OR ondansetron (ZOFRAN) IV Q6H PRN, potassium chloride SR PRN OR potassium chloride PRN OR potassium chloride in water PRN, traMADol Q6H PRN Allergies: No Known Allergies Prior Level of Function Prior Function Level Of [place]: Independent with ADLs and functional transfers; Independent with homemaking w/ ambulation Lives With: Spouse Receives Help From: Spouse (IADLs) Homemaking Tasks: Laundry Homemaking Assist: (Spouse provides transport; Has cleaning lady) Vocational: Retired Other Function Comments: Pt independent with in-home distances prior to admission, but reports, "I didn't move much." Pt denies hx of falls. Reports functional decline/ increased fatigue since March. Spouse works as ethnic origins teacher and project manager/team coach and is not home 20/06 Home Environment: Home Situation: Lives with Family (09/14/2018 10:42 AM) Patient Owned Equipment: None (09/14/2018 10:42 AM) Type of Home: House (09/14/2018 2:00 PM) Entry Stairs: 1-2 Stairs (2) (09/14/2018 10:42 AM) In-Home Stairs: Able to Live on One Level;1-2 Flights of Stairs;Rail on 1 Side ( to basement) (09/14/2018 10:42 AM) Comments: Oxygen requirement at baseline: 2L via NC during the day (09/14/2018 10:42 AM) No Data Recorded Current Level of Function Current Level Of Function: PT Gait:Gait Distance: 100 feet (x2 bouts with 5 minute seated rest break) Gait : Assistance Level: Minimal Assist, Safety Considerations (periods of contact guard assistance) Gait: Assistive Device: Roller Walker Bed Mobility/Transfers Transfer Type: Sit to/from Stand Transfer: Assistance Level: To/From, Bed Side Chair, Minimal Assist (and hallway bench) Transfer: Assistive Device: Roller Walker Transfers: Type Of Assistance: Verbal Cues, To Maintain Precautions, For Balance End Of Activity Status: Up in Chair, Nursing Notified, Instructed Patient to Request Assist with Mobility, Instructed Patient to Use Call Light OT ADL's Where Assessed: In Bathroom, Standing at Sink, Chair Eating Assist: Independent Eating Deficits: No Assist Needed LE Dressing Assist: Modified Independent (demo of crossover technique for socks only ) LE Dressing Deficits: Setup, Verbal Cueing, Supervision/Safety, Increased Time To Complete Toileting Assist: Minimal Assist Toileting Deficits: Setup, Perineal Hygiene (Pt managed gown only- not wearing brief) Functional Transfer Assist: Minimal Assist (with roller walker) Functional Transfer Deficits: Setup, Verbal Cueing, Supervision/Safety, Increased Time to Complete, Toilet Transfer Comment: ADLs per above. Pt required cues to avoid pushing through UEs during functional sit <> stand transfers. Pt on 3L O2 NC upon therapist arrival and 4L upon therapist exit; SpO2 92%. SATELLITE INSTALLATION TECHNICIAN COGNITIVE EVALUATION SUMMARY PRAGMATICS: BEHAVIOR: AUDITORY COMPREHENSION: ORIENTATION: AUDITORY ATTENTION/WORKING MEMORY: AUDITORY MEMORY/SUSTAINED ATTENTION: NEW LEARNING: SEQUENCING/ORGANIZATION: PROBLEM SOLVING: REASONING: MATH/MONEY SKILLS: VISUAL PERCEPTUAL: SWALLOW EVALUATION SUMMARY Review of Systems A 14 point review of systems was negative except for: Noted in HPI Physical Exam BP: 134/69 (09/15 820) Temp: 36.8 C (98.3 F) (09/15 820) Pulse: 73 (09/15 835) Respirations: 16 PER MINUTE (09/15 835) SpO2: 94 % (09/15 835) O2 Delivery: Nasal Cannula (09/15 820) Body mass index is 38.74 kg/m. Gen: Alert & Oriented X 3, No Acute Distress HEENT: NCAT, PERRL, EOMI, MMM Neck: Supple, no elevated JVP Heart: Regular Rate & Rhythm, no m/g/r Lungs: Clear to auscultation bilaterally, no w/r/r Abdomen: Soft, non-tender, non-distended, +BS : No Cardoza Skin: no rash/lesion Ext: MS: Root Right Left Shoulder Abduction C5 4 4 Elbow Flexion C5 4 4 Elbow Extension C7 4 4 Wrist Extension C6 4 4 Finger Flexion C8 4 4 Finger Abduction T1 4 4 Hip Flexion L2 4 4 Knee Flexion L5/S1 4 4 Knee Extension L3 4 4 Dorsiflexion L4 4 4 Plantarflexion S1 4 4 EHL Extension L5 4 4 Intake/Output Summary: Intake/Output Summary (Last 24 hours) at 09/15/18 0933 Last data filed at 09/15/18 0600 Gross per 24 hour Intake 370 ml Output 4250 ml Net -3880 ml Stool Occurrence: 1 (09/14/2018 11:05 PM) Last Bowel Movement Date: 09/14/18 (09/14/2018 11:00 PM) No Data Recorded No Data Recorded No Data Recorded No Data Recorded No Data Recorded Basic Metabolic Profile Lab Results Component Value Date/Time NA 134 (L) 09/15/2018 04:07 AM K 3.9 09/15/2018 04:07 AM CA 9.8 09/15/2018 04:07 AM CL 93 (L) 09/15/2018 04:07 AM CO2 32 (H) 09/15/2018 04:07 AM Lab Results Component Value Date/Time BUN 46 (H) 09/15/2018 04:07 AM CR 1.33 (H) 09/15/2018 04:07 AM GLU 104 (H) 09/15/2018 04:07 AM CBC w/Diff Lab Results Component Value Date/Time WBC 7.2 09/15/2018 04:07 AM RBC 2.99 (L) 09/15/2018 04:07 AM HGB 9.0 (L) 09/15/2018 04:07 AM HCT 27.0 (L) 09/15/2018 04:07 AM MCV 90.3 09/15/2018 04:07 AM MCH 30.0 09/15/2018 04:07 AM RDW 14.4 09/15/2018 04:07 AM PLTCT 202 09/15/2018 04:07 AM MPV 8.1 09/15/2018 04:07 AM No results found for: NEUT, ANC, LYMA, ALC, YOUSUF, AMC, EOSA, AEC, BASA, ABC Radiology: Pertinent radiology reviewed * Milan Barraza DO - 09/08/2018 2:15 PM CDT Associated Order(s): CONSULT ANESTHESIOLOGY CRITICAL CARE PHYSICIAN Ashlee Gambino Jonna Admission Date: 09/08/2018 LOS: 0 days ASSESSMENT/PLAN ATTESTATION I have seen, personally fully evaluated, and discussed patient with the CTS ICU team. The patient is critically ill s/p VALVULOPLASTY MITRAL VALVE WITH CARDIOPULMONARY BYPASS AND PROSTHETIC RING,) TISSUE ABLATION AND RECONSTRUCTION OF ATRIA WITH CARDIOPULMONARY BYPASS - EXTENSIVE. I spent 60 minutes ( excluding time spent performing or supervising any procedures) providing and personally directing critical care services including direct OR recovery, ventilator management, hemodynamic monitoring and management, lab and radiology review, medication review and management, fluid and electrolyte management and coordination of care. Staff name: Milan Barraza, Date: 09/08/2018 Patient Active Problem List Diagnosis Date Noted Acute on chronic diastolic CHF (congestive heart failure), NYHA class 3 (HCC ) Atrial fibrillation (HCC) Chronic diastolic heart failure (HCC) HTN (hypertension) Hyperlipemia Morbid obesity (HCC) Mitral regurgitation 08/01/2018 Neuro: PRN tylenol and PRN opioids per CTS protocol. Assess daily for delirium. Sedation: PRN pain meds. Precedex for moderate to severe agitation if no contraindications (bradycardia, heart block). Cardiac: Monitor vitals q1hr. Fluids and inotropes for CI greater than 2. Respiratory: Check postop ABG. OOB when able, aggressive RT. Chest tubes per CTS. GI: NPO for now, then advance diet as tolerated. GI ppx. Start CTS bowel regimen, ensure regular BM. Heme: Check postop CBC/coags, assess for coagulopathy. Hold chemical DVT ppx until cleared by CTS, continue mechanical ppx. ID: Post op abx: Per CTS protocol Renal: Check postop BMP, monitor for JOSE F. Fluids PRN to maintain hemodynamic stability. FEN:Electrolyte goals while in ICU: Mg >2.0, iCal > 1.0, K+ >4.0 mEq/L. Insulin gtt per Modified Rosalind Protocol. Activity: Increase HOB to 30 degrees over 1st postop hour. Bedrest until extubated. Dangle early and advance activity as tolerated. Early cardiac PT/ OT. Dispo: This patient is immediately postop, critically ill with dysfunction of multiple organ systems and is at risk for additional life threatening deterioration. Cont ICU care. Lines: Yes; Arterial Line; Indication: Frequent blood draws and Continuous BP monitoring; Location: Radial Central Line; Indication: Incompatability of meds and Hemodynamic monitoring; Type: Internal jugular Urinary Catheter: Yes; Retain cardoza due to: Need for accurate Intake and Output __ HISTORY OR Course Uncomplicated intubation. Complications: None PMHx significant for: HTN, HLD, Mitral regurgitation, Morbid Obesity, Aifb Past Surgical History: Procedure Laterality Date CARDIAC CATHERIZATION 06/23/2018 [facility]- normal coronaries CARDIOVERSION 07/20/2018 Unsuccessful TRANSESOPHAGEAL ECHOCARDIOGRAM 07/20/2018 EYE SURGERY Left FOOT SURGERY Right TUBAL LIGATION No Known Allergies Home Medications Inpatient Scheduled Meds: acetaminophen (TYLENOL) tablet 1,000 mg 1,000 mg Oral Q6H* aspirin EC tablet 81 mg 81 mg Oral QDAY [START ON 09/09/2018] atorvastatin (LIPITOR) tablet 40 mg 40 mg Oral QDAY ceFAZolin (ANCEF) IVP 2 g 2 g Intravenous Q8H* magnesium sulfate 4 g/50 mL IVPB 4 g Intravenous ONCE [START ON 09/09/2018] senna/docusate (SENOKOT-S) tablet 2 tablet 2 tablet Oral BID Continuous Infusions: aminocaproic acid (AMICAR) 12.5 g in sodium chloride 0.9% (NS) IV infusion 2 g/hr (09/08/18 1240) dexmedetomidine (PRECEDEX) 400 mcg in sodium chloride 0.9% (NS) 100 mL IV infusion 0.5 mcg/kg/hr (09/08/18 1415) insulin regular (NOVOLIN R) 100 Units in sodium chloride 0.9% (NS) 100 mL IV drip (std conc) 1 Units/hr (09/08/18 1320) nitroGLYCERIN 50 mg/D5W 250 mL infusion 0.75 mcg/kg/min (09/08/18 1310) norepinephrine (LEVOPHED) 4 mg in dextrose 5% (D5W) 250 mL IV drip (std conc ) Stopped (09/08/18 1241) sodium chloride 0.9 % infusion 30 mL/hr at 09/08/18 1241 PRN and Respiratory Meds:[START ON 09/13/2018] acetaminophen Q6H PRN OR [ START ON 09/13/2018] acetaminophen Q6H PRN, alum/mag hydroxide/simeth Q4H PRN, atropine Once PRN, bisacodyl QDAY PRN, fentaNYL citrate PF Q1H PRN, hydrALAZINE Q6H PRN, lidocaine PF PRN, milk of magnesia (CONC) QDAY PRN, ondansetron Q6H PRN OR ondansetron (ZOFRAN) IV Q6H PRN, oxyCODONE Q4H PRN, potassium chloride SR PRN OR potassium chloride PRN OR potassium chloride in water PRN Social History Social History Substance Use Topics Smoking status: Never Smoker Smokeless tobacco: Never Used Alcohol use No OBJECTIVE Vital Signs: Last Filed Vital Signs: 24 Hour Range BP: 137/78 (09/08 715) ABP: 129/73 (09/08 1400) Temp: 36.3 C (97.3 F) (09/08 1400) Pulse: 80 (09/08 1400) Respirations: 0 PER MINUTE (09/08 1400) SpO2: 95 % (09/08 1400) O2 Delivery: Endotracheal Tube (Oral) (09/08 1400) Height: 167.6 cm (66") (09/08 742) Weight: 114.8 kg (253 lb 1.4 oz) (09/08 742) BP: (137-148)/(78-79) ABP: (100-142)/(50-82) Temp: [36.1 C (97 F)-36.9 C (98.4 F)] Pulse: [59-81] Respirations: [0 PER MINUTE-17 PER MINUTE] SpO2: [95 %-100 %] O2 Delivery: Endotracheal Tube (Oral) Intensity Pain Scale (Self Report): (not recorded) Vitals: 09/08/18741 Weight: 114.8 kg (253 lb 1.4 oz) Artificial airway: Endotracheal Tube Ventilator/ Respiratory Therapy: Yes: Weaning readiness screen (RT Only):: Implement protocol Mode: V/AC+ Set Vt (ml): [460 milliliters] Tidal Volume Spont (mL): [463 milliliters-466 milliliters] Set RR: [15 breaths/minutes] Total Respiratory Rate (Breaths/Min): [15 breaths/minutes] Minute Volume (L/min): [6.9 liters/minutes-7.01 liters/minutes] %MVspon: [0 %-1 %] O2%: [50 %-100 %] PIP Actual: [21 cm H20-23 cm H20] PEEP/CPAP: [5 cm H2O] Physical Exam: General: Sedated Neurologic: Pupils: Size: 2 mm, Reactivity: PERRL Heart: RRR, no murmur Lungs: CTAB Abdomen: Soft, NTTP Extremities: Trace edema Lab Review: 24-hour labs: Results for orders placed or performed during the hospital encounter of (from the past 24 hour(s)) BLOOD TYPE CONFIRMATION - ORDER ONLY IF REQUESTED BY LAB Collection Time: 09/08/18 7:25 AM Result Value Ref Range ABO/RH(D) A NEG POC GLUCOSE Collection Time: 09/08/18 8:38 AM Result Value Ref Range Glucose, POC 104 (H) 70 - 100 MG/DL POC BLOOD GAS ARTERIAL Collection Time: 09/08/18 8:41 AM Result Value Ref Range PH-ART-POC 7.40 7.35 - 7.45 [id number]-SBN-ZSK 48 (H) 35 - 45 MMHG PO2-ART-POC 103 (H) 80 - 100 MMHG Base Ex-ART-POC 5.0 MMOL/L O2 Sat-ART-POC 98.0 95 - 99 % Raulzoqyncm-FUA-NVX 29.6 (H) 21 - 28 MMOL/L POC HEMATOCRIT Collection Time: 09/08/18 8:41 AM Result Value Ref Range Hemoglobin POC 10.2 (L) 12.0 - 15.0 GM/DL Hematocrit POC 30.0 (L) 36 - 45 % POC POTASSIUM Collection Time: 09/08/18 8:41 AM Result Value Ref Range Potassium-POC 3.2 (L) 3.5 - 5.1 MMOL/L POC SODIUM Collection Time: 09/08/18 8:41 AM Result Value Ref Range Sodium-POC 142 137 - 147 MMOL/L POC IONIZED CALCIUM Collection Time: 09/08/18 8:41 AM Result Value Ref Range Ionized Calcium-POC 1.16 1.0 - 1.3 MMOL/L POC GLUCOSE Collection Time: 09/08/18 9:04 AM Result Value Ref Range Glucose, POC 111 (H) 70 - 100 MG/DL POC GLUCOSE Collection Time: 09/08/18 9:37 AM Result Value Ref Range Glucose, POC 116 (H) 70 - 100 MG/DL POC BLOOD GAS ARTERIAL Collection Time: 09/08/18 9:39 AM Result Value Ref Range PH-ART-POC 7.56 (H) 7.35 - 7.45 [id number]-[id number]-[id number] 37 35 - 45 MMHG PO2-ART-POC 423 (H) 80 - 100 MMHG Base Ex-ART-POC 11.0 MMOL/L O2 Sat-ART-POC 100.0 (H) 95 - 99 % Awxewmmiozm-ALO-UAC 33.4 (H) 21 - 28 MMOL/L POC HEMATOCRIT Collection Time: 09/08/18 9:39 AM Result Value Ref Range Hemoglobin POC 8.5 (L) 12.0 - 15.0 GM/DL Hematocrit POC 25.0 (L) 36 - 45 % POC POTASSIUM Collection Time: 09/08/18 9:39 AM Result Value Ref Range Potassium-POC 3.6 3.5 - 5.1 MMOL/L POC SODIUM Collection Time: 09/08/18 9:39 AM Result Value Ref Range Sodium-POC 141 137 - 147 MMOL/L POC IONIZED CALCIUM Collection Time: 09/08/18 9:39 AM Result Value Ref Range Ionized Calcium-POC 1.01 1.0 - 1.3 MMOL/L POC GLUCOSE Collection Time: 09/08/18 10:05 AM Result Value Ref Range Glucose, POC 135 (H) 70 - 100 MG/DL POC BLOOD GAS ARTERIAL Collection Time: 09/08/18 10:07 AM Result Value Ref Range PH-ART-POC 7.54 (H) 7.35 - 7.45 XEU0-GFV-VAA 38 35 - 45 MMHG PO2-ART-POC 363 (H) 80 - 100 MMHG Base Ex-ART-POC 9.0 MMOL/L O2 Sat-ART-POC 100.0 (H) 95 - 99 % Rvevlgbvbho-EIR-EKR 32.0 (H) 21 - 28 MMOL/L POC HEMATOCRIT Collection Time: 09/08/18 10:07 AM Result Value Ref Range Hemoglobin POC 8.8 (L) 12.0 - 15.0 GM/DL Hematocrit POC 26.0 (L) 36 - 45 % POC POTASSIUM Collection Time: 09/08/18 10:07 AM Result Value Ref Range Potassium-POC 3.7 3.5 - 5.1 MMOL/L POC SODIUM Collection Time: 09/08/18 10:07 AM Result Value Ref Range Sodium-POC 142 137 - 147 MMOL/L POC IONIZED CALCIUM Collection Time: 09/08/18 10:07 AM Result Value Ref Range Ionized Calcium-POC 1.03 1.0 - 1.3 MMOL/L POC GLUCOSE Collection Time: 09/08/18 10:34 AM Result Value Ref Range Glucose, POC 154 (H) 70 - 100 MG/DL POC BLOOD GAS ARTERIAL Collection Time: 09/08/18 10:36 AM Result Value Ref Range PH-ART-POC 7.47 (H) 7.35 - 7.45 VEQ7-WTU-DVK 45 35 - 45 MMHG PO2-ART-POC 437 (H) 80 - 100 MMHG Base Ex-ART-POC 9.0 MMOL/L O2 Sat-ART-POC 100.0 (H) 95 - 99 % Wejcyquufjy-TUV-URK 32.8 (H) 21 - 28 MMOL/L POC HEMATOCRIT Collection Time: 09/08/18 10:36 AM Result Value Ref Range Hemoglobin POC 8.2 (L) 12.0 - 15.0 GM/DL Hematocrit POC 24.0 (L) 36 - 45 % POC POTASSIUM Collection Time: 09/08/18 10:36 AM Result Value Ref Range Potassium-POC 3.6 3.5 - 5.1 MMOL/L POC SODIUM Collection Time: 09/08/18 10:36 AM Result Value Ref Range Sodium-POC 142 137 - 147 MMOL/L POC IONIZED CALCIUM Collection Time: 09/08/18 10:36 AM Result Value Ref Range Ionized Calcium-POC 1.05 1.0 - 1.3 MMOL/L POC GLUCOSE Collection Time: 09/08/18 11:24 AM Result Value Ref Range Glucose, POC 159 (H) 70 - 100 MG/DL POC BLOOD GAS ARTERIAL Collection Time: 09/08/18 11:26 AM Result Value Ref Range PH-ART-POC 7.48 (H) 7.35 - 7.45 UVY6-UXL-JDU 39 35 - 45 MMHG PO2-ART-POC 277 (H) 80 - 100 MMHG Base Ex-ART-POC 6.0 MMOL/L O2 Sat-ART-POC 100.0 (H) 95 - 99 % Sqjwwpjxyld-KTB-UUB 29.2 (H) 21 - 28 MMOL/L POC HEMATOCRIT Collection Time: 09/08/18 11:26 AM Result Value Ref Range Hemoglobin POC 8.2 (L) 12.0 - 15.0 GM/DL Hematocrit POC 24.0 (L) 36 - 45 % POC POTASSIUM Collection Time: 09/08/18 11:26 AM Result Value Ref Range Potassium-POC 3.2 (L) 3.5 - 5.1 MMOL/L POC SODIUM Collection Time: 09/08/18 11:26 AM Result Value Ref Range Sodium-POC 143 137 - 147 MMOL/L POC IONIZED CALCIUM Collection Time: 09/08/18 11:26 AM Result Value Ref Range Ionized Calcium-POC 1.13 1.0 - 1.3 MMOL/L POC GLUCOSE Collection Time: 09/08/18 1:13 PM Result Value Ref Range Glucose, POC 160 (H) 70 - 100 MG/DL CBC Collection Time: 09/08/18 1:15 PM Result Value Ref Range White Blood Cells 10.6 4.5 - 11.0 K/UL RBC 3.62 (L) 4.0 - 5.0 M/UL Hemoglobin 10.9 (L) 12.0 - 15.0 GM/DL Hematocrit 32.3 (L) 36 - 45 % MCV 89.4 80 - 100 FL MCH 30.2 26 - 34 PG MCHC 33.8 32.0 - 36.0 G/DL RDW 14.4 11 - 15 % Platelet Count 137 (L) 150 - 400 K/UL MPV 8.6 7 - 11 FL BASIC METABOLIC PANEL Collection Time: 09/08/18 1:15 PM Result Value Ref Range Sodium 140 137 - 147 MMOL/L Potassium 3.5 3.5 - 5.1 MMOL/L Chloride 107 98 - 110 MMOL/L CO2 25 21 - 30 MMOL/L Anion Gap 8 3 - 12 Glucose 158 (H) 70 - 100 MG/DL Blood Urea Nitrogen 21 7 - 25 MG/DL Creatinine 1.14 (H) 0.4 - 1.00 MG/DL Calcium 8.7 8.5 - 10.6 MG/DL eGFR Non 48 (L) >60 mL/min eGFR 58 (L) >60 mL/min PROTIME INR (PT) Collection Time: 09/08/18 1:15 PM Result Value Ref Range INR 1.2 0.8 - 1.2 PTT (APTT) Collection Time: 09/08/18 1:15 PM Result Value Ref Range APTT 24.9 20.0 - 36.0 SEC MAGNESIUM Collection Time: 09/08/18 1:15 PM Result Value Ref Range Magnesium 2.3 1.6 - 2.6 mg/dL POC BLOOD GAS ARTERIAL Collection Time: 09/08/18 1:16 PM Result Value Ref Range PH-ART-POC 7.43 7.35 - 7.45 XPP2-HUN-QHA 41 35 - 45 MMHG PO2-ART-POC 143 (H) 80 - 100 MMHG Base Ex-ART-POC 3.0 MMOL/L O2 Sat-ART-POC 99.0 95 - 99 % Itdatahpjpb-LSD-YXO 27.0 21 - 28 MMOL/L POC HEMATOCRIT Collection Time: 09/08/18 1:16 PM Result Value Ref Range Hemoglobin POC 10.2 (L) 12.0 - 15.0 GM/DL Hematocrit POC 30.0 (L) 36 - 45 % POC POTASSIUM Collection Time: 09/08/18 1:16 PM Result Value Ref Range Potassium-POC 3.5 3.5 - 5.1 MMOL/L POC SODIUM Collection Time: 09/08/18 1:16 PM Result Value Ref Range Sodium-POC 143 137 - 147 MMOL/L POC IONIZED CALCIUM Collection Time: 09/08/18 1:16 PM Result Value Ref Range Ionized Calcium-POC 1.17 1.0 - 1.3 MMOL/L Point of Care Testing: (Last 24 hours): Glucose: (!) 158 (09/08/18 1315) POC Glucose (Download): (!) 160 (09/08/18 1313) Radiology and Other Diagnostic Procedures Review: Reviewed Milan Barraza DO, MA Men'S Designer Anesthesiology and Critical Care [phone] in this encounter Miscellaneous Notes * Case Mgmt DC Plan - Suellen Quijano - 09/18/2018 11:09 AM CDT Case Management Progress NoteNAME:Ashlee Hoyt :1950 AGE: 68 y.o. ADMISSION DATE: 09/08/2018 DAYS ADMITTED: LOS: 10 days Todays Date: 09/18/2018 Plan DC to SNF today. Interventions ? Support Support: Pt/Family Updates re:POC or DC Plan, Patient Education ? Info or Referral Information or Referral to Community Resources: No Needs Identified ? Discharge Planning Discharge Planning: [facility] NCM faxed physician dc summary to PCP in continuity of care as PCP will be managing pt's AC once she discharged from the SNF. ? 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 ) ? Financial Financial: No Needs Identified ? Legal Legal: No Needs Identified ? Other Other/None: No needs identified Disposition ? Expected Discharge Date Expected Discharge Date: 09/18/18 ? Transportation Does the patient need discharge transport arranged?: No Transportation Name, Phone and Availability #1: Spouse or dgt, Jadyn Does the patient use Medicaid Transportation?: No ? Discharge Disposition DC to SNF today. Suellen TUCKER, coupon redemption clerk Nurse Wastewater Superintendent Inpatient Cardiothoracic Surgery M-F [phone] O: [phone] * Case Mgmt DC Plan - Selin Bowens - 09/18/2018 11:02 AM CDT Case Management Progress NoteNAME:Ashlee Hoyt :1950 AGE: 68 y.o. ADMISSION DATE: 09/08/2018 DAYS ADMITTED: LOS: 10 days Todays Date: 09/18/2018 Plan Pt to dc today at 10am via facility arranged wc van. 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 Pt with jodee overnight. Pt continues with pulmonary toilet and to have team to wean O2 as able. Pt on po lasix. Ready for dc today. Interventions ? Support Support: Pt/Family Updates re:POC or DC Plan, Patient Education KATY met with pt this am in room to discuss dc planning and to complete a CARE assessment. Pt and agreeable to meeting with SW to complete same. KATY discussed why CARE assessment was needed and had pt sign all WANDA as well as certificate of assessment once it was completed. KATY provided her with her brochure, certificate, and right to a hearing handout as well. SW confirmed she was agreeable to going to SNF today at [facility] via wc van. Pt and agreeable to same. ? Info or Referral Information or Referral to Community Resources: No Needs Identified ? Discharge Planning Discharge Planning: [facility] SW contacted SNF admissions this am to confirm they are able to accept pt today and can provide transport. They notified SW they can accept and sent their transport team over at 8am so they will be arriving at 10am. SW notified CTS team as well as bedside and DC RN's of timeline. SW completed transfer packet and placed in wallaroo. SW also faxed signed dc orders and scripts to [phone]. SW also faxed CARE assessment and WANDA/ Certificate along with dc orders. ? 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 ) ? Financial Financial: No Needs Identified ? Legal Legal: No Needs Identified ? Other Other/None: No needs identified Disposition ? Expected Discharge Date Expected Discharge Date: 09/18/18 ? Transportation Does the patient need discharge transport arranged?: No Transportation Name, Phone and Availability #1: Spouse or dgt, Jadyn Does the patient use Medicaid Transportation?: No ? Next Level of Care (Acute Psych discharges only) ? Discharge Disposition Durable Medical Equipment No service has been selected for the patient. Destination [facility] Home Care No service has been selected for the patient. Dialysis/Infusion No service has been selected for the patient. Selin Bowens LMSW Surgery - Cardiothoracic/Vascular Turbine Room Attendant *[id number] * Care Plan - Brionna Giang RN - 09/16/2018 5:31 AM CDT Problem: Discharge Planning Goal: Prepared for discharge Outcome: Goal Ongoing Pt going to SNF at beginning of next week. Problem: Pain Goal: Management of pain Outcome: Goal Ongoing Pain assessed q4h and prn. Pt has c/o minimal pain. Problem: Respiratory Impairment (Non-Ventilated Patient) Goal: Effective gas exchange Outcome: Goal Ongoing Pt remains on 3-4L while awake. * Care Plan - Peri Mckeon RN - 09/15/2018 12:00 PM CDT Problem: Discharge Planning Goal: Participation in plan of care Outcome: Goal Ongoing Pt is an active participant in plan of care. Goal: Knowledge regarding plan of care Outcome: Goal Ongoing Pt verbalizes understanding in plan of care. Goal: Prepared for discharge Outcome: Goal Ongoing Dc plan ongoing. Problem: Pain Goal: Management of pain Outcome: Goal Ongoing Pain well controlled with current pain regimen. Goal: Knowledge of pain management Outcome: Goal Ongoing Pt verbalizes understanding of pain scale and pain management options. Problem: Fluid Volume, Imbalanced Goal: Absence of dehydration Outcome: Goal Ongoing Monitoring I&Os. Goal: Absence of fluid overload Outcome: Goal Ongoing Monitoring I&Os. 1L Free Water restriction in place. Problem: Falls, High Risk of Goal: Absence of falls-Adult Patient Outcome: Goal Ongoing High fall risk bundle in place. Problem: Infection, Risk of, Surgical Site Infection Goal: Absence of surgical site infection Outcome: Goal Ongoing Incisions C/D/I. Problem: Skin Integrity Goal: Skin integrity intact Outcome: Goal Ongoing Encouraging ambulation, self turns and weight shifting. Goal: Healing of skin (Wound & Incision) Outcome: Goal Ongoing Incisions C/D/I. Goal: Healing of skin (Pressure Ulcer) Outcome: Goal Achieved Date Met: 09/15/18 Pt does not have pressure ulcer. Problem: Respiratory Impairment (Non-Ventilated Patient) Goal: Effective gas exchange Outcome: Goal Ongoing Tolerating 3-4L NC. Goal: Effective breathing pattern Outcome: Goal Ongoing Pt displays non-labored, symmetrical breathing. Goal: Patent airway Outcome: Goal Ongoing Displays patent airway. Problem: Mobility/Activity Intolerance Goal: Maximize functional ADL's and mobility outcomes Outcome: Goal Ongoing PT/OT/Cardiac rehab following. Problem: Self-Care Deficit Goal: Maximize ADL functioning Outcome: Goal Ongoing Completing ADLs with staff assist. * Case Mgmt DC Plan - Selin Bowens - 09/15/2018 11:21 AM CDT Case Management Progress NoteNAME:Ashlee Hoyt :1950 AGE: 68 y.o. ADMISSION DATE: 09/08/2018 DAYS ADMITTED: LOS: 7 days Todays Date: 09/15/2018 Plan [facility] can accept for admit on Tuesday and will plan to p/u pt at 10am. Per CTS team huddle this am, pt is medically stable for dc. Pt still requiring 3-4L NC at rest. Team to attempt to wean pt as able. Pt on cardiac diet and continues on post op bowel regimen. INR currently 1.7. PT/OT consulted and recommending inpatient. Interventions ? Support Support: Pt/Family Updates re:POC or DC Plan, Patient Education KATY met with pt's sister in room this morning because pt was outside of room working with PT/OT. Sister notified SW that she and her family had discussed SNF vs IPR and feel pt is not ready for IPR setting and will need to go to SNF for several weeks. They are requesting for referrals to be sent to [facility] as well as [facility]. They would prefer to have pt dc to [facility]. KATY also contacted pt's to discuss plan to ensure the above information was correct. He confirmed same and notified SW he would be at [facility] later today in case SW had updates. Update 1:15pm SW met with pt this afternoon in room to discuss dc planning. KATY apologized for not being able to meet with pt sooner but also explained that each time SW has tried to meet with her, she has been working with therapies. Pt understood same. SW notified pt of [facility] being able to accept her for admit on Tuesday. She was agreeable to this plan and thanked KATY for her assistance. ? Info or Referral Information or Referral to Community Resources: No Needs Identified ? Discharge Planning Discharge Planning: [facility]patient Rehabilitation, [facility] KATY contacted [facility] and notified them of incoming referral. They cannot accept pt over the weekend and would need to defer until Tuesday. They will review referral and f/u with SW when able. Update 1:00pm SW received f[facility]u from [facility] and they can accept pt for admit on Tuesday morning and will plan to p/u at 10am. SW notified them of need for O2 as well. ? 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 ) ? Financial Financial: No Needs Identified ? Legal Legal: No Needs Identified ? Other Other/None: No needs identified Disposition ? Expected Discharge Date Expected Discharge Date: 09/18/18 ? Transportation Does the patient need discharge transport arranged?: No Transportation Name, Phone and Availability #1: Spouse or dgt, Jadyn Does the patient use Medicaid Transportation?: No ? Next Level of Care (Acute Psych discharges only) ? Discharge Disposition Durable Medical Equipment No service has been selected for the patient. [facility] Destination No service has been selected for the patient. Home Care No service has been selected for the patient. [facility] Dialysis/Infusion No service has been selected for the patient. Selin Bowens LMSW Surgery - Cardiothoracic/Vascular Turbine Room Attendant *[id number] * Care Plan - Brionna Giang RN - 09/15/2018 3:01 AM CDT Problem: Infection, Risk of, Central Venous Catheter-Associated Bloodstream Infection Goal: Absence of CVC Associated Bloodstream infection Outcome: Goal Achieved Date Met: 09/15/18 Pt no longer has a CVC. Problem: Pain Goal: Management of pain Outcome: Goal Ongoing Pain assessed q4h and prn. Pt has c/o minimal pain. Problem: Falls, High Risk of Goal: Absence of falls-Adult Patient Outcome: Goal Ongoing Fall bundle in place. Call light in reach. Bed exit alarm armed. Problem: Glucose Management Goal: Glucose level within specified parameters Outcome: Goal Achieved Date Met: 09/15/18 Pt no longer glucose checks. * Case Mgmt DC Plan - Selin Bowens - 09/14/2018 2:29 PM CDT Case Management Progress NoteNAME:Ashlee Hoyt :1950 AGE: 68 y.o. ADMISSION DATE: 09/08/2018 DAYS ADMITTED: LOS: 6 days Todays Date: 09/14/2018 Plan Dc planning ongoing at this time. Pt will likely need placement upon dc. SNF vs IPR. Pt's family would prefer IPR setting at [facility] in [place], [place] if possible. 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 Pt with jodee overnight. To continue with pulmonary toilet and diuresis. Pt to be weaned of O2 as able and to have coumadin increased. Interventions ? Support Support: Pt/Family Updates re:POC or DC Plan, Patient Education SW met with pt's , dgt, and sister in waiting room this afternoon to discuss dc planning. SW attempted to meet with pt but she had just begun working with OT. SW notified pt's family that she would likely need rehab upon dc. SW discussed the differences between SNF and IPR and also provided a list for both options. Pt's and sister felt pt would not be open to SNF and would only consider IPR. SW educated family on PMR consult process. They identified [facility] IPR as the only close option. SW told them she would discuss PMR consult with her team and notify them if there were any issues. ? Info or Referral Information or Referral to Community Resources: No Needs Identified ? Discharge Planning Discharge Planning: [facility]patient Rehabilitation[facility] SW requested for team to place a rehab consult as soon as they were able per families preference. ? 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 ) ? Financial Financial: No Needs Identified ? Legal Legal: No Needs Identified ? Other Other/None: No needs identified Disposition ? Expected Discharge Date Expected Discharge Date: 09/18/18 ? Transportation Does the patient need discharge transport arranged?: No Transportation Name, Phone and Availability #1: Spouse or dgt, Jadyn Does the patient use Medicaid Transportation?: No ? Next Level of Care (Acute Psych discharges only) ? Discharge Disposition Durable Medical Equipment No service has been selected for the patient. Destination No service has been selected for the patient. Home Care No service has been selected for the patient. Dialysis/Infusion No service has been selected for the patient. Selin Bowens LMSW Surgery - Cardiothoracic/Vascular Turbine Room Attendant *[id number] * Care Plan - Kirsten Lacy RN - 09/14/2018 2:50 AM CDT Problem: Discharge Planning Goal: Participation in plan of care Outcome: Goal Ongoing Pt acknowledges current POC. No concerns at this time. Problem: Pain Goal: Management of pain Outcome: Goal Ongoing Pain well controlled via current regimen. Problem: Falls, High Risk of Goal: Absence of falls-Adult Patient Outcome: Goal Ongoing HFR bundle in place. Pt uses call light appropriately. Problem: Skin Integrity Goal: Skin integrity intact Outcome: Goal Ongoing Skin integrity intact (except surgical incisions/wounds). Warm, race appropriate, w/ normal turgor. Goal: Healing of skin (Pressure Ulcer) Outcome: Goal Ongoing Surgical incisions CDI. No s/s of infection. * Patient Education - Keegan Morales - 09/13/2018 6:54 PM CDT Pharmacy Anticoagulation Teaching Ashlee Hoyt was provided with both verbal and written drug information about Warfarin. Discussion with the patient included: the medication regimen, dosing, monitoring, possible adverse effects, food/drug interactions to be aware of and OTC/herbal medication use. Emphasis was placed on the importance of medication compliance. The patient was also encouraged to contact the pharmacist with any further questions. Keegan Morales Clinical Social Science Manager 09/13/2018 * Case Mgmt DC Plan - Suellen Quijano - 09/13/2018 10:48 AM CDT Case Management Progress NoteNAME:Ashlee Hoyt :1950 AGE: 68 y.o. ADMISSION DATE: 09/08/2018 DAYS ADMITTED: LOS: 5 days Todays Date: 09/13/2018 Plan Continue inpt care/dc planning. PT/OT evals pending. Possible dc by the end of the week . Interventions ? Support ? Info or Referral ? Discharge Planning [facility] spoke with Dr. Turner's nurse ( pt's Cards) and confirmed that he does not manage Coumadin and defers to PCP. GLENDA then called Dr. Skaggs and spoke with her nurse Chela and confirmed they will manage AC. [facility] anticipates need for HHS on dc therefore HH RN can draw INR's while on service. Once pt dc's from [facility], she can have labs done within PCP clinic. INR results to be faxed to Dr. Skaggs : [phone] F: [phone]. Will follow up w pt to further discuss dc needs once PT/OT rec's in place. ? 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 ) ? Financial ? Legal ? Other Disposition ? Expected Discharge Date Expected Discharge Date: 09/16/18 ? Transportation Does the patient need discharge transport arranged?: No Transportation Name, Phone and Availability #1: Spouse or dgt, Jadyn Does the patient use Medicaid Transportation?: No ? Discharge Disposition TBD pending progression. Suellen TUCKER, coupon redemption clerk Nurse Wastewater Superintendent Inpatient Cardiothoracic Surgery M-F [phone] O: [phone] * Care Plan - Kirsten Lacy RN - 09/13/2018 12:57 AM CDT Problem: Discharge Planning Goal: Participation in plan of care Outcome: Goal Ongoing Pt and pt's acknowledge current POC. Both express concerns w/ pt's O2 Sat levels. I continued to educate the pt on taking deep breaths in to expand lungs, and notified RT of low 90's Sats. Problem: Pain Goal: Management of pain Outcome: Goal Ongoing Pain well controlled via current regimen. Problem: Falls, High Risk of Goal: Absence of falls-Adult Patient Outcome: Goal Ongoing HFR bundle in place. Up x1-2 + walker in room if needed. Pt uses call light appropriately. Problem: Skin Integrity Goal: Skin integrity intact Outcome: Goal Ongoing Skin integrity intact (except surgical incisions/wounds). Warm, race appropriate, w/ normal turgor. Goal: Healing of skin (Wound & Incision) Outcome: Goal Ongoing Surgical incisions CDI. No s/s of infection. Problem: Respiratory Impairment (Non-Ventilated Patient) Goal: Effective gas exchange Outcome: Goal Ongoing Pt uses 2L of O2 at home. Needing 3-5L via NC overnight + wearing CPAP while asleep. O2 Sats in low 90's, and RT notified. Pt c/o SOA w/ activity and increased pain. * Case Mgmt DC Plan - Suellen Quijano - 09/12/2018 3:30 PM CDT Case Management Admission AssessmentNAME:Ashlee Hoyt :1950 AGE: 68 y.o. ADMISSION DATE: 09/08/2018 DAYS ADMITTED: LOS: 4 days Todays Date: 09/12/2018 Source of Information: Patient Plan Plan: CM Assessment, Assist PRN with SW/NCM Services, Discharge Planning for Home Anticipated NCM met with pt in continuation of care and dc planning. NCM introduced self and NCM/SW roles. Provided contact information and encouraged pt to reach out to CM team with questions or concerns. Pt admitted for planned MVR and is now POD 4- dc needs TBD. NCM to follow up w pt on 09/14 to further discuss dc planning. NCM called and left VM for Dr. Turner's nurse to determine if they can follow and mange AC on dc-awaiting response. Patient Address/Phone [address] [place] [phone] (home) [phone] (work) Emergency Contact Extended Emergency Contact Information Primary Emergency Contact: Vito Hoyt [address]: [address] [place] [phone] [facility] Relation: Spouse Healthcare Directive Healthcare Directive: No, patient does not have a healthcare directive Would patient like to fill out a (a new) Healthcare Directive?: No, patient declined Transportation Does the patient need discharge transport arranged?: No Transportation Name, Phone and Availability #1: Spouse or Jadyn young Does the patient use Medicaid Transportation?: No Expected Discharge Date Expected Discharge Date: 09/16/18 Living Situation Prior to Admission ? Living Arrangements Living Arrangements: Spouse/significant other Bathroom Shower / Tub: Walk-in Shower How many levels in the residence?: 2 Can patient live on one level if needed?: Yes Does residence have entry and/or side stairs?: (S) Yes (2) Assistance needed prior to admit or anticipated on discharge: Yes Who provides assistance or could if needed?: Spouse can assist. Pt's Jadyn young will also be taking time off work to stay w pt and assist with any needs. Are they in good health?: Yes Can support system provide 24/7 care if needed?: Maybe ? Level of Function Prior level of function: Independent ? Cognitive Abilities Cognitive Abilities: Alert and Oriented, Participates in decision making, Recognizes impact of health condition on lifestyle, Engages in problem solving and planning Financial Resources ? Coverage Primary Insurance: Medicare (A/B ) Secondary Insurance: Commercial insurance ([employer] [place]) Additional Coverage: RX (BCBS ) States meds have been affordable. ? 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 Financial Assistance Needed? NA Psychosocial Needs ? Mental Health Mental Health History: No ? Substance Use History Substance Use History Screen: No ? Other NA Current/Previous Services ? PCP [facility], , Cards: Dr. Turner ? Pharmacy [address] [facility] [address] ? Durable Medical Equipment Durable Medical Equipment at home: Oxygen (Wears 2 lpm oxygen continuously- supplied by [facility] [facility]- pt also uses a CPAP w nasal pillow. ) ? Home Health Receiving home health: No ? Hemodialysis or Peritoneal Dialysis Undergoing hemodialysis or peritoneal dialysis: No ? Tube/Enteral Feeds Receive tube/enteral feeds: No ? Infusion Receive infusions: No ? Private Duty Private duty help used: No ? Home and Community Based Services Home and community based services: No ? Daniel Morales: N/A ? Hospice Hospice: No ? Outpatient Therapy PT: No OT: No SATELLITE INSTALLATION TECHNICIAN: No ? Penitentiary Facility/Senior Living SNF: No NH: No ? Inpatient Rehab No ? Long-Term Acute Care Hospital LTACH: No ? Acute Hospital Stay Acute Hospital Stay: In the past Was patient's stay within the last 30 days?: No Suellen TUCKER, coupon redemption clerk Nurse Wastewater Superintendent Inpatient Cardiothoracic Surgery M-F [phone] O: [phone] * Case Mgmt DC Plan - Suellen Quijano - 09/12/2018 3:30 PM CDT Case Management Admission AssessmentNAME:Ashlee Immanuel Hoyt :1950 AGE: 68 y.o. ADMISSION DATE: 09/08/2018 DAYS ADMITTED: LOS: 4 days Todays Date: 09/12/2018 Source of Information: Patient Plan Plan: CM Assessment, Assist PRN with SW/NCM Services, Discharge Planning for Home Anticipated NCM met with pt in continuation of care and dc planning. NCM introduced self and NCM/SW roles. Provided contact information and encouraged pt to reach out to CM team with questions or concerns. Pt admitted for planned MVR and is now POD 4- dc needs TBD. NCM to follow up w pt on 09/14 to further discuss dc planning. Patient Address/Phone [address] [facility] [phone] (home) [phone] (work) Emergency Contact Extended Emergency Contact Information Primary Emergency Contact: Vito Hoyt Address: [address] [place] [address] [facility] Relation: Spouse Healthcare Directive Healthcare Directive: No, patient does not have a healthcare directive Would patient like to fill out a (a new) Healthcare Directive?: No, patient declined Transportation Does the patient need discharge transport arranged?: No Transportation Name, Phone and Availability #1: Spouse or Jadyn young Does the patient use Medicaid Transportation?: No Expected Discharge Date Expected Discharge Date: 09/16/18 Living Situation Prior to Admission ? Living Arrangements Living Arrangements: Spouse/significant other Bathroom Shower / Tub: Walk-in Shower How many levels in the residence?: 2 Can patient live on one level if needed?: Yes Does residence have entry and/or side stairs?: (S) Yes (2) Assistance needed prior to admit or anticipated on discharge: Yes Who provides assistance or could if needed?: Spouse can assist. Pt's Jadyn young will also be taking time off work to stay w pt and assist with any needs. Are they in good health?: Yes Can support system provide 24/7 care if needed?: Maybe ? Level of Function Prior level of function: Independent ? Cognitive Abilities Cognitive Abilities: Alert and Oriented, Participates in decision making, Recognizes impact of health condition on lifestyle, Engages in problem solving and planning Financial Resources ? Coverage Primary Insurance: Medicare (A/B ) Secondary Insurance: Commercial insurance ([employer] [place]) Additional Coverage: RX (BCBS ) States meds have been affordable. ? 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 Financial Assistance Needed? NA Psychosocial Needs ? Mental Health Mental Health History: No ? Substance Use History Substance Use History Screen: No ? Other NA Current/Previous Services ? PCP [facility], , Cards: Dr. Turner ? Pharmacy [address] [facility] [address] ? Durable Medical Equipment Durable Medical Equipment at home: Oxygen (Wears 2 lpm oxygen continuously- supplied by [facility]- pt also uses a CPAP w nasal pillow. ) ? Home Health Receiving home health: No ? Hemodialysis or Peritoneal Dialysis Undergoing hemodialysis or peritoneal dialysis: No ? Tube/Enteral Feeds Receive tube/enteral feeds: No ? Infusion Receive infusions: No ? Private Duty Private duty help used: No ? Home and Community Based Services Home and community based services: No ? Daniel Sanchez [place]: N/A ? Hospice Hospice: No ? Outpatient Therapy PT: No OT: No SATELLITE INSTALLATION TECHNICIAN: No ? Penitentiary Facility/Senior Living SNF: No NH: No ? Inpatient Rehab No ? Long-Term Acute Care Hospital LTACH: No ? Acute Hospital Stay Acute Hospital Stay: In the past Was patient's stay within the last 30 days?: No Suellen TUCKER, coupon redemption clerk Nurse Wastewater Superintendent Inpatient Cardiothoracic Surgery M-F [phone] O: [phone] * Care Plan - Elida Donnelly RN - 09/12/2018 3:33 AM CDT Problem: Discharge Planning Goal: Prepared for discharge Outcome: Goal Ongoing Not prepared for d/c at this time. Problem: Glucose Management Goal: Glucose level within specified parameters Outcome: Goal Ongoing Blood sugar checks 5x daily, treated appropriately. * Case Mgmt DC Plan - Suellen Quijano - 09/11/2018 3:22 PM CDT Case Management Progress NoteNAME:Ashlee Hoyt :1950 AGE: 68 y.o. ADMISSION DATE: 09/08/2018 DAYS ADMITTED: LOS: 3 days Todays Date: 09/11/2018 Plan Pt admitted for planned MVR and is now POD 3. Interventions ? Support ? Info or Referral ? Discharge Planning EMR and POC reviewed CM team attempted to complete assessment however pt not appropriate for same due to drowsiness. CM team to f/u again tomorrow to complete assessment. ? Medication Needs ? Financial ? Legal ? Other Disposition ? Expected Discharge Date Expected Discharge Date: 09/15/18 ? Discharge Disposition TBD pending progression. Suellen TUCKER, coupon redemption clerk Nurse Wastewater Superintendent Inpatient Cardiothoracic Surgery M-F [phone] O: [phone] * Care Plan - Elida Donnelly RN - 09/10/2018 9:56 PM CDT Problem: Infection, Risk of, Central Venous Catheter-Associated Bloodstream Infection Goal: Absence of CVC Associated Bloodstream infection Outcome: Goal Ongoing Central line up to date. Problem: Pain Goal: Management of pain Outcome: Goal Ongoing Pain assessed q2 and more frequently as needed, treated appropriately per eMAR. Problem: Falls, High Risk of Goal: Absence of falls-Adult Patient Outcome: Goal Ongoing Fall bundle in place. Problem: Skin Integrity Goal: Healing of skin (Wound & Incision) Outcome: Goal Ongoing Skin and wounds c/d/i. Wound cleanser used as able. * Care Plan - Kelly Yuen RN - 09/10/2018 10:42 AM CDT Problem: Infection, Risk of, Central Venous Catheter-Associated Bloodstream Infection Goal: Absence of CVC Associated Bloodstream infection Outcome: Goal Ongoing CL care per protocol. Problem: Infection, Risk of, Urinary Catheter-Associated Urinary Tract Infection Goal: Absence of urinary catheter-associated infection Outcome: Goal Ongoing Cardoza care per protocol. Problem: Discharge Planning Goal: Participation in plan of care Outcome: Goal Ongoing Educated pt and family on POC and expectations. Goal: Knowledge regarding plan of care Outcome: Goal Ongoing Educated pt and family on POC and expectations. Goal: Prepared for discharge Outcome: Goal Ongoing Anticipate DC needs Problem: Pain Goal: Management of pain Outcome: Goal Ongoing Educated pt and family on pain mgt. Goal: Knowledge of pain management Outcome: Goal Ongoing Educated pt and family on pain mgt. Problem: Fluid Volume, Imbalanced Goal: Absence of dehydration Outcome: Goal Ongoing Monitor I/O Goal: Absence of fluid overload Outcome: Goal Ongoing Monitor I/O Problem: Falls, High Risk of Goal: Absence of falls-Adult Patient Outcome: Goal Ongoing High fall risk preventions in place Problem: Infection, Risk of, Surgical Site Infection Goal: Absence of surgical site infection Outcome: Goal Ongoing Incision care per protocol. Problem: Glucose Management Goal: Glucose level within specified parameters Outcome: Goal Ongoing SSI Problem: Skin Integrity Goal: Skin integrity intact Outcome: Goal Ongoing Encourage mobility. Goal: Healing of skin (Wound & Incision) Outcome: Goal Ongoing Incision care per protocol. * Care Plan - Kareen Galvez RN - 09/09/2018 11:58 PM CDT Problem: Infection, Risk of, Central Venous Catheter-Associated Bloodstream Infection Goal: Absence of CVC Associated Bloodstream infection Outcome: Goal Ongoing CLABSI bundle interventions in place to prevent infection. Problem: Infection, Risk of, Urinary Catheter-Associated Urinary Tract Infection Goal: Absence of urinary catheter-associated infection Outcome: Goal Ongoing CAUTI bundle interventions in place to prevent infection. Problem: Injury-Risk of, Non-Violent Physical Restraints Goal: Absence of Injury while physically restrained (Non-Violent) Outcome: Goal Achieved Date Met: 09/09/18 Restraints removed when pt extubated. Problem: Discharge Planning Goal: Participation in plan of care Outcome: Goal Ongoing Pt participating in plan of care. Goal: Knowledge regarding plan of care Outcome: Goal Ongoing Discussed plan of care for the night with pt at beginning of shift. Goal: Prepared for discharge Outcome: Goal Ongoing Requires ICU level care at this time. Problem: Anxiety Goal: Alleviation of anxiety Outcome: Goal Ongoing Pt calm and cooperative. Needs encouragement to increase mobility. Problem: Pain Goal: Management of pain Outcome: Goal Ongoing Receiving scheduled doses of tylenol and prn tramadol and oxycodone for pain control. Comfort/pain: comfortable Change in pain: About the same Pain Control: Partially effective Function: Can do most things, but pain gets in the way of some things Sleep: Awake with occasional pain Problem: Tissue Perfusion, Altered Goal: Adequate tissue perfusion Outcome: Goal Ongoing Maintaining adequate MAP. Problem: Skin Integrity Goal: Skin integrity intact Outcome: Goal Ongoing No changes in skin integrity. Assisting with turns. Goal: Healing of skin (Wound & Incision) Outcome: Goal Ongoing Surgical dressings dry and intact. Problem: Fluid Volume, Imbalanced Goal: Absence of dehydration Outcome: Goal Ongoing Monitoring I&Os hourly. Goal: Absence of fluid overload Outcome: Goal Ongoing Monitoring I&Os hourly. Standard postop 1.5L fluid restriction. Problem: Falls, High Risk of Goal: Absence of falls-Adult Patient Outcome: Goal Ongoing High risk fall bundle interventions in place to prevent falls. Problem: Infection, Risk of, Surgical Site Infection Goal: Absence of surgical site infection Outcome: Goal Ongoing No evidence of surgical site infection, dressings dry and intact. Problem: Glucose Management Goal: Glucose level within specified parameters Outcome: Goal Ongoing Monitoring FSBG 5 times daily with SSI as needed. * Care Plan - Mikey Leyva RN - 09/09/2018 3:12 AM CDT Problem: Discharge Planning Goal: Prepared for discharge Outcome: Goal Ongoing Continues to require ICU level of care. * Operative Report (Direct Entry) - Negra Best MD - 09/08/2018 12:00 PM CDT OPERATIVE REPORT Name: Ashlee Hoyt is a 68 y.o. female : 1950 DATE OF OPERATION: 09/08/2018 Surgeon(s) and Role: * David River MD - Primary * Negra Best MD - Fellow * Selin Good PA-C - Assisting Preoperative Diagnosis: Mitral regurgitation [I34.0] Atrial fibrillation (HCC) [I48.91] Post-op Diagnosis * Mitral regurgitation [I34.0] * Atrial fibrillation (HCC) [I48.91] Procedure(s): VALVULOPLASTY MITRAL VALVE WITH CARDIOPULMONARY BYPASS AND PROSTHETIC RING TISSUE ABLATION AND RECONSTRUCTION OF ATRIA WITH CARDIOPULMONARY BYPASS - EXTENSIVE TRICUSPID ANNULOPLASTY Anesthesia Type: General Indications for Procedure: Ms. Hoyt is a 68 y/o F with atrial fibrillation and NYHA class III symptoms from mitral regurgitation. Today's procedure is a planned mitral valve repair and Maze procedure. The risks and benefits of the procedure were discussed at length with the pt and her family and all parties wish to proceed. Description and Findings of Operative Procedure: The patient was brought to the operating room and placed in the supine position. A timeout was performed. Following induction of anesthesia, the patient was intubated and an arterial line and [place] catheter were placed. The patient was then prepped and draped in sterile fashion. A median sternotomy was performed and a sternal retractor was placed, the heart was exposed and a pericardial well was created. The patient was systemically heparinized and following placement of caval tapes and pursestring sutures, the aorta, SVC and IVC were cannulated. An antegrade cardioplegia catheter was placed. After confirmation of appropriate ACT, cardiopulmonary bypass was initiated. The crossclamp was applied, caval tapes were snared and the heart arrested using a high-potassium cold-blood cardioplegia solution in both an antegrade and retrograde fashion. The arrest was maintained throughout the case with periodic reinfusion of cold cardioplegia. The right atrium was then entered sharply. The left atrium was entered through the fossa ovalis and the incision extended along the floor of the right atrium into the dome of the left atrium. The left atrial appendage was quite large and was accordingly sized and occluded using a 45mm AtriClip. Next the atrial edges were suspended. A full Maze was then performed using a cryothermal probe. The mitral valve was exposed and inspected. The leaflets appeared morphologically normal with a dilated annulus. Eight Ethibond sutures were then placed along the annulus and a 27 mm Medtronic flexible annuloplasty band was selected, the sutures seated into the band and the band secured. No regurgitation was appreciated upon distension of the left ventricle with saline instillation. Next the tricuspid valve was examined, and its annulus was also found to be dilated. A DeVega annuloplasty was performed using a 4-0 Prolene suture with good reduction in annular diameter. Using a running suture the left atrium was closed following deairing maneuvers. The heart was then infused with warm blood while the right atrium was deaired and closed with a running suture. The crossclamp was then removed. Caval tapes were released. All suture lines were inspected and repairs made when necessary. Atrial and ventricular pacing wires were placed. Deairing maneuvers were performed with satisfactory echocardiographic improvement. The patient was placed back onto the ventilator. Once appropriate cardiac output was demonstrated the patient was successfully from cardiopulmonary bypass. Protamine was administered, the patient was decannulated without incident and hemostasis was achieved. Two 24F drains were placed into the mediastinum and pleural spaces, and the chest was closed with stainless steel wire cerclage. The fascia and deep dermal layers were reapproximated with an 0 PDS, and the skin was reapproximated with a 4-0 Monocryl. The incision was covered with a Silverlon dressing. Post-bypass echo showed preserved ventricular function, complete occlusion of the left atrial appendage, and no regurgitation within the tricuspid or mitral valves. The patient tolerated the procedure well; there were no complications. Sponge and instrument counts were reported as correct at the end of the case. She was transferred to the ICU in critical but stable condition. Dr. River was present and scrubbed for the critical portions of the case. Estimated Blood Loss: No blood loss documented. Specimen(s) Removed/Disposition: * No specimens in log * Attestation: I performed this procedure with a resident. Negra Best MD Pager [phone] * Procedures (Immed Post or Bedside) - Negra Best MD - 09/08/2018 11:57 AM CDT Brief Operative Note Name: Ashlee Hoyt is a 68 y.o. female : 1950 DATE OF OPERATION: 09/08/2018 Date: 09/08/2018 Preoperative Dx: Mitral regurgitation [I34.0] Atrial fibrillation (HCC) [I48.91] Post-op Diagnosis * Mitral regurgitation [I34.0] * Atrial fibrillation (HCC) [I48.91] Procedure(s): VALVULOPLASTY MITRAL VALVE WITH CARDIOPULMONARY BYPASS AND PROSTHETIC RING TISSUE ABLATION AND RECONSTRUCTION OF ATRIA WITH CARDIOPULMONARY BYPASS - EXTENSIVE Anesthesia Type: Defer to Anesthesia Surgeon(s) and Role: * David River MD - Primary * Negra Best MD - Fellow * Selin Good PA-C - Assisting Findings: Maze procedure performed. Dilated mitral annulus with essentially normal leaflets. 27mm annuloplasty band placed with no regurgitation on postprocedure ARNAUD. DeVega annuloplasty of the tricuspid valve performed with trace TR on postprocedure echo. Estimated Blood Loss: No blood loss documented. Specimen(s) Removed/Disposition: * No specimens in log * Complications: None Implants: 27mm Medtronic flexible mitral annuloplasty band Drains: Other 24F mediastinal drain x 2 Disposition: ICU - stable Negra Best MD Pager [phone] in this encounter Plan of Treatment Order Schedule Name Priority Associated Diagnoses ONE TIME for 1 Occurrences starting 09/08/2018 until 09/08/2018 ECG 12-LEAD STAT as of this encounter Procedures Comments Procedure Name Priority Date/Time Associated Diagnosis ECG-SCAN 10/08/2018 3:30 PM LAND SURVEY TECHNICIAN TELEMETRY STRIPS-SCAN 09/21/2018 1:15 PM CDT PROCEDURE RECORD-SCAN 09/19/2018 10:27 AM CDT ECG-SCAN 09/19/2018 10:11 AM CDT PROTIME INR (PT) Routine 09/18/2018 3:54 AM CDT CBC Routine 09/18/2018 3:54 AM CDT BASIC METABOLIC PANEL Routine 09/18/2018 3:54 AM CDT PROTIME INR (PT) Routine 09/17/2018 4:36 AM CDT CBC Routine 09/17/2018 4:36 AM CDT BASIC METABOLIC PANEL Routine 09/17/2018 4:36 AM CDT PROTIME INR (PT) Routine 09/16/2018 3:51 AM CDT CBC Routine 09/16/2018 3:51 AM CDT BASIC METABOLIC PANEL Routine 09/16/2018 3:51 AM CDT CHEST SINGLE VIEW Routine 09/15/2018 6:09 AM CDT PROTIME INR (PT) Routine 09/15/2018 4:07 AM CDT CBC Routine 09/15/2018 4:07 AM CDT BASIC METABOLIC PANEL Routine 09/15/2018 4:07 AM CDT POC GLUCOSE 09/14/2018 9:08 PM CDT POC GLUCOSE 09/14/2018 11:47 AM CDT PROTIME INR (PT) Routine 09/14/2018 3:54 AM CDT CBC Add on 09/14/2018 3:54 AM CDT BASIC METABOLIC PANEL Add on 09/14/2018 3:54 AM CDT POC GLUCOSE 09/13/2018 9:00 PM CDT POC GLUCOSE 09/13/2018 8:15 AM CDT CHEST 2 VIEWS Routine 09/13/2018 6:34 AM CDT PROTIME INR (PT) Routine 09/13/2018 4:45 AM CDT CBC Routine 09/13/2018 4:45 AM CDT BASIC METABOLIC PANEL Routine 09/13/2018 4:45 AM CDT POC GLUCOSE 09/12/2018 9:18 PM CDT POC GLUCOSE 09/12/2018 5:23 PM CDT POC GLUCOSE 09/12/2018 12:08 PM CDT POC GLUCOSE 09/12/2018 8:43 AM CDT CHEST SINGLE VIEW YOEL 09/12/2018 6:19 AM CDT POC GLUCOSE 09/12/2018 3:44 AM CDT PROTIME INR (PT) STAT 09/12/2018 3:30 AM CDT CBC Routine 09/12/2018 3:30 AM CDT MAGNESIUM Routine 09/12/2018 3:30 AM CDT BASIC METABOLIC PANEL Routine 09/12/2018 3:30 AM CDT POC GLUCOSE [...] INR (PT) STAT 09/11/2018 3:20 AM CDT CBC Routine 09/11/2018 3:20 AM CDT BASIC METABOLIC PANEL Routine 09/11/2018 3:20 AM CDT POC GLUCOSE [...] CDT POC GLUCOSE 09/10/2018 3:02 AM CDT PROTIME INR (PT) STAT 09/10/2018 1:50 AM CDT CBC Routine 09/10/2018 1:50 AM CDT MAGNESIUM 09/10/2018 1:50 AM CDT BASIC METABOLIC PANEL Routine 09/10/2018 1:50 AM CDT POC GLUCOSE 09/09/2018 9:07 PM CDT POC GLUCOSE 09/09/2018 6:05 PM CDT BASIC METABOLIC PANEL STAT 09/09/2018 3:45 PM CDT CHEST SINGLE VIEW Routine 09/09/2018 3:35 PM CDT POC GLUCOSE 09/09/2018 8:56 AM CDT O2 SATURATION, MIXED Routine 09/09/2018 VENOUS 8:48 AM CDT POC GLUCOSE 09/09/2018 6:52 AM CDT CHEST SINGLE VIEW Routine 09/09/2018 4:56 AM CDT POC GLUCOSE 09/09/2018 4:21 AM CDT O2 SATURATION, MIXED Routine 09/09/2018 VENOUS 4:11 AM CDT CBC Routine 09/09/2018 4:11 AM CDT BASIC METABOLIC PANEL Routine 09/09/2018 4:11 AM CDT ECG 12-LEAD Routine 09/09/2018 4:00 AM CDT POC GLUCOSE 09/09/2018 2:04 AM CDT POC GLUCOSE 09/09/2018 12:23 AM CDT O2 SATURATION, MIXED Routine 09/09/2018 VENOUS 12:17 AM CDT POC GLUCOSE 09/08/2018 8:35 PM CDT O2 SATURATION, MIXED Routine 09/08/2018 VENOUS 8:27 PM CDT POTASSIUM Routine 09/08/2018 8:27 PM CDT BLOOD GASES, ARTERIAL STAT 09/08/2018 6:50 PM CDT POC GLUCOSE 09/08/2018 6:49 PM CDT POC BLOOD GAS ARTERIAL 09/08/2018 5:41 PM CDT POC GLUCOSE 09/08/2018 5:38 PM CDT POTASSIUM Routine 09/08/2018 5:35 PM CDT MAGNESIUM Routine 09/08/2018 5:35 PM CDT POC GLUCOSE 09/08/2018 3:35 PM CDT O2 SATURATION, MIXED STAT 09/08/2018 VENOUS 2:23 PM CDT POTASSIUM Routine 09/08/2018 2:23 PM CDT POC GLUCOSE 09/08/2018 2:20 PM CDT POC BLOOD GAS ARTERIAL 09/08/2018 1:16 PM CDT POC SODIUM 09/08/2018 1:16 PM CDT POC POTASSIUM 09/08/2018 1:16 PM CDT POC IONIZED CALCIUM 09/08/2018 1:16 PM CDT POC HEMATOCRIT 09/08/2018 1:16 PM CDT PTT (APTT) STAT 09/08/2018 1:15 PM CDT PROTIME INR (PT) STAT 09/08/2018 1:15 PM CDT CBC STAT 09/08/2018 1:15 PM CDT MAGNESIUM STAT 09/08/2018 1:15 PM CDT BASIC METABOLIC PANEL STAT 09/08/2018 1:15 PM CDT POC GLUCOSE 09/08/2018 1:13 PM CDT LINE PLCMT 1V CXR STAT 09/08/2018 12:40 PM CDT POC BLOOD GAS ARTERIAL 09/08/2018 11:26 AM CDT POC SODIUM 09/08/2018 11:26 AM CDT POC POTASSIUM 09/08/2018 11:26 AM CDT POC IONIZED CALCIUM 09/08/2018 11:26 AM CDT POC HEMATOCRIT 09/08/2018 11:26 AM CDT POC GLUCOSE 09/08/2018 11:24 AM CDT POC BLOOD GAS ARTERIAL 09/08/2018 10:36 AM CDT POC SODIUM 09/08/2018 10:36 AM CDT POC POTASSIUM 09/08/2018 10:36 AM CDT POC IONIZED CALCIUM 09/08/2018 10:36 AM CDT POC HEMATOCRIT 09/08/2018 10:36 AM CDT POC GLUCOSE 09/08/2018 10:34 AM CDT POC BLOOD GAS ARTERIAL 09/08/2018 10:07 AM CDT POC SODIUM 09/08/2018 10:07 AM CDT POC POTASSIUM 09/08/2018 10:07 AM CDT POC IONIZED CALCIUM 09/08/2018 10:07 AM CDT POC HEMATOCRIT 09/08/2018 10:07 AM CDT POC GLUCOSE 09/08/2018 10:05 AM CDT POC BLOOD GAS ARTERIAL 09/08/2018 9:39 AM CDT POC SODIUM 09/08/2018 9:39 AM CDT POC POTASSIUM 09/08/2018 9:39 AM CDT POC IONIZED CALCIUM 09/08/2018 9:39 AM CDT POC HEMATOCRIT 09/08/2018 9:39 AM CDT POC GLUCOSE 09/08/2018 9:37 AM CDT POC GLUCOSE 09/08/2018 9:04 AM CDT POC BLOOD GAS ARTERIAL 09/08/2018 8:41 AM CDT POC SODIUM 09/08/2018 8:41 AM CDT POC POTASSIUM 09/08/2018 8:41 AM CDT POC IONIZED CALCIUM 09/08/2018 8:41 AM CDT POC HEMATOCRIT 09/08/2018 8:41 AM CDT POC GLUCOSE 09/08/2018 8:38 AM CDT BLOOD TYPE CONFIRMATION - STAT 09/08/2018 Mitral valve ORDER ONLY IF REQUESTED 7:25 AM CDT insufficiency, BY LAB unspecified etiology Atrial fibrillation, unspecified type (HCC) Encounter for blood typing in this encounter Results * CHEST 2 VIEWS (10/30/2018 10:08 AM LAND SURVEY TECHNICIAN) Impressions Performed At Stable cardiomegaly without [...] Interface, Radiant Results - 10/30/2018 11:47 AM LAND SURVEY TECHNICIAN CHEST 2 VIEWS Clinical Indication: Female, [...] RAD RESULTS * ECG-SCAN (10/08/2018 3:30 PM LAND SURVEY TECHNICIAN) Narrative Performed At Ordered by an unspecified provider. * TELEMETRY STRIPS-SCAN (09/21/2018 1:15 PM CDT) Narrative Performed At Ordered by an unspecified provider. * PROCEDURE RECORD-SCAN (09/19/2018 10:27 AM CDT) Narrative Performed At Ordered by an unspecified provider. * ECG-SCAN (09/19/2018 10:11 AM CDT) Narrative Performed At Ordered by an unspecified provider. * BASIC METABOLIC PANEL (09/18/2018 3:54 AM CDT) Sodium 134 (L) 137 - 147 MMOL/L [facility] Potassium 3.7 3.5 - 5.1 MMOL/L [facility] Chloride 96 (L) 98 - 110 MMOL/L [facility] CO2 31 (H) 21 [...] Blood Performing Organization Address City/State/Zipcode Phone Number [facility] [address] [place] [address] * CBC (09/18/2018 3:54 AM CDT) White Blood Cells 9.0 4.5 - 11.0 K/UL [facility] RBC 2.95 (L) 4.0 - 5.0 M/UL [facility] Hemoglobin 8.6 (L) 12.0 - 15.0 GM/DL [facility] Hematocrit 26.1 (L) 36 - 45 % [facility] MCV 88.6 80 - 100 FL [facility] MCH 29.3 26 - 34 PG [facility] MCHC 33.1 32.0 - 36.0 G/DL [facility] RDW 14.6 11 - 15 % [facility] Platelet Count 310 150 - 400 K/UL [facility] MPV 7.7 7 - 11 FL [facility] Specimen Blood Performing Organization Address [facility] Phone Number [facility] [address] [phone] * PROTIME INR (PT) (09/18/2018 3:54 AM CDT) INR 2.2 (H) 0.8 - 1.2 MAIN [facility] Specimen Blood Performing Organization Address [facility] Phone Number [facility] [address] [place] [address] * BASIC METABOLIC PANEL (09/17/2018 4:36 AM CDT) Sodium 133 (L) 137 - 147 MMOL/L [facility] Potassium 4.2 3.5 - 5.1 MMOL/L [facility] Chloride 94 (L) 98 - 110 MMOL/L [facility] CO2 31 (H) 21 - 30 MMOL/L [facility] Anion Gap 8 3 - 12 [facility] Glucose 103 (H) 70 - 100 MG/DL [facility] Blood Urea Nitrogen 36 (H) 7 - 25 MG/DL [facility] Creatinine 1.39 (H) 0.4 - 1.00 MG/DL [facility] Calcium 9.5 8.5 - 10.6 MG/DL [facility] eGFR Non 38 (L) >60 mL/min [facility] Comment: The eGFR is not validated for use in drug dosing adjustments.Continue to use estimated creatinine clearance per dosing reference text.Please contact the Clinical Pharmacist for questions. eGFR 46 (L) >60 mL/min [facility] Comment: The eGFR is not validated for use in drug dosing adjustments.Continue to use estimated creatinine clearance per dosing reference text.Please contact the Clinical Pharmacist for questions. Specimen Blood Performing Organization Address [facility]/Zipcode Phone Number [facility] [address] [place] [address] * CBC (09/17/2018 4:36 AM CDT) White Blood Cells 7.8 4.5 - 11.0 K/UL [facility] RBC 2.99 (L) 4.0 - 5.0 M/UL [facility] Hemoglobin 8.9 (L) 12.0 - 15.0 GM/DL [facility] Hematocrit 26.8 (L) 36 - 45 % [facility] MCV 89.8 80 - 100 FL [facility] MCH 29.7 26 - 34 PG [facility] MCHC 33.0 32.0 - 36.0 G/DL [facility]IN [facility] RDW 14.8 11 - 15 % [facility] Platelet Count 292 150 - 400 K/UL [facility] MPV 7.6 7 - 11 FL [facility] Specimen Blood Performing Organization Address [facility] Phone Number [facility] [address] [place] [address] * PROTIME INR (PT) (09/17/2018 4:36 AM CDT) INR 1.9 (H) 0.8 - 1.2 MAIN [facility] Specimen Blood Performing Organization Address [facility] Phone Number [facility] [address] [place] [address] * BASIC METABOLIC PANEL (09/16/2018 3:51 AM CDT) Sodium 134 (L) 137 - 147 MMOL/L [facility] Potassium 3.9 3.5 - 5.1 MMOL/L [facility] Chloride 94 (L) 98 - 110 MMOL/L [facility] CO2 31 (H) 21 - 30 MMOL/L [facility] Anion Gap 9 3 - 12 [facility] Glucose 104 (H) 70 - 100 MG/DL [facility] Blood Urea Nitrogen 40 (H) 7 - 25 MG/DL [facility] Creatinine 1.42 (H) 0.4 - 1.00 MG/DL [facility] Calcium 9.6 8.5 - 10.6 MG/DL [facility]IN [facility] eGFR Non 37 (L) >60 mL/min [facility] Comment: The eGFR is not validated for use in drug dosing adjustments.Continue to use estimated creatinine clearance per dosing reference text.Please contact the Clinical Pharmacist for questions. eGFR 45 (L) >60 mL/min [facility] Comment: The eGFR is not validated for use in drug dosing adjustments.Continue to use estimated creatinine clearance per dosing reference text.Please contact the Clinical Pharmacist for questions. Specimen Blood Performing Organization Address [facility] Phone Number [facility] [address] [place] [address] * CBC (09/16/2018 3:51 AM CDT) White Blood Cells 7.2 4.5 - 11.0 K/UL [facility] RBC 2.98 (L) 4.0 - 5.0 M/UL [facility] Hemoglobin 8.9 (L) 12.0 - 15.0 GM/DL [facility] Hematocrit 26.3 (L) 36 - 45 % [facility] MCV 88.3 80 - 100 FL [facility] MCH 29.7 26 - 34 PG [facility] MCHC 33.7 32.0 - 36.0 G/DL [facility] RDW 14.7 11 - 15 % [facility] Platelet Count 247 150 - 400 K/UL [facility] MPV 8.2 7 - 11 FL [facility] Specimen Blood Performing Organization Address City/[facility]/Zipcode Phone Number MAIN LAB [address] [place] [address] * PROTIME INR (PT) (09/16/2018 3:51 AM CDT) INR 1.8 (H) 0.8 - 1.2 [facility] Specimen Blood Performing Organization Address City/[facility]/Zipcode Phone Number [facility] [address] [place] [address] * CHEST SINGLE VIEW (09/15/2018 6:09 AM CDT) Impressions Performed At 1. Stable chest radiograph [...] on 09/15/2018 8:17 AM. Performing Organization Address City/State/Zipcode Phone Number [facility] RAD RESULTS * BASIC METABOLIC PANEL (09/15/2018 4:07 AM CDT) Sodium 134 (L) 137 - 147 MMOL/L [facility] Potassium 3.9 3.5 - 5.1 MMOL/L [facility] Chloride 93 (L) 98 - 110 MMOL/L [facility] CO2 32 (H) 21 - 30 MMOL/L [facility] Anion Gap 9 3 - 12 [facility] Glucose 104 (H) 70 - 100 MG/DL [facility] Blood Urea Nitrogen 46 (H) 7 - 25 MG/DL [facility] Creatinine 1.33 (H) 0.4 - 1.00 MG/DL [facility] Calcium 9.8 8.5 - 10.6 MG/DL [facility] [...] for questions. Specimen Blood Performing Organization Address City/[facility] Phone Number [facility] [address] [place] [address] * CBC (09/15/2018 4:07 AM CDT) White Blood Cells 7.2 4.5 - 11.0 K/UL [facility] RBC 2.99 (L) 4.0 - 5.0 M/UL [facility] Hemoglobin 9.0 (L) 12.0 - 15.0 GM/DL [facility] Hematocrit 27.0 (L) 36 - 45 % [facility] MCV 90.3 80 - 100 FL [facility] MCH 30.0 26 - 34 PG [facility] MCHC 33.2 32.0 - 36.0 G/DL [facility] RDW 14.4 11 - 15 % [facility] Platelet Count 202 150 - 400 K/UL [facility] MPV 8.1 7 - 11 FL [facility] Specimen Blood Performing Organization Address [facility] Phone Number [facility] [address] [phone] * PROTIME INR (PT) (09/15/2018 4:07 AM CDT) INR 1.7 (H) 0.8 - 1.2 MAIN LAB Specimen Blood Performing Organization Address [facility] Phone Number [facility] [address] [place] [address] * POC GLUCOSE (09/14/2018 9:08 PM CDT) Glucose, POC 133 (H) 70 - 100 MG/DL [facility] Performing Organization Address [facility] Phone Number [facility] [address] [place] [address] * POC GLUCOSE (09/14/2018 11:47 AM CDT) Glucose, POC 116 (H) 70 - 100 MG/DL [facility] Performing Organization Address [facility] Phone Number [facility] [address] [place] [address] * CBC (09/14/2018 3:54 AM CDT) White Blood Cells 6.6 4.5 - 11.0 K/UL [facility] RBC 2.85 (L) 4.0 - 5.0 M/UL [facility] Hemoglobin 8.6 (L) 12.0 - 15.0 GM/DL [facility] Hematocrit 25.2 (L) 36 - 45 % [facility] MCV 88.4 80 - 100 FL [facility] MCH 30.2 26 - 34 PG [facility] MCHC 34.2 32.0 - 36.0 G/DL [facility] RDW 14.6 11 - 15 % [facility] Platelet Count 167 150 - 400 K/UL [facility] MPV 8.7 7 - 11 FL [facility] Performing Organization Address City/[facility] Phone Number [facility] [address] [place] [address] * BASIC METABOLIC PANEL (09/14/2018 3:54 AM CDT) Sodium 132 (L) 137 - 147 MMOL/L [facility] Potassium 3.8 3.5 - 5.1 MMOL/L [facility] Chloride 92 (L) 98 - 110 MMOL/L [facility] CO2 31 (H) 21 - 30 MMOL/L [facility] Anion Gap 9 3 - 12 [facility] Glucose 100 70 - 100 MG/DL [facility] Blood Urea Nitrogen 50 (H) 7 - 25 MG/DL [facility] Creatinine 1.46 (H) 0.4 - 1.00 MG/DL [facility] Calcium 9.5 8.5 - 10.6 MG/DL [facility] eGFR Non 36 (L) >60 mL/min [facility] Comment: The eGFR is not validated for use in drug dosing adjustments.Continue to use estimated creatinine clearance per dosing reference text.Please contact the Clinical Pharmacist for questions. eGFR 43 (L) >60 mL/min [facility] Comment: The eGFR is not validated for use in drug dosing adjustments.Continue to use estimated creatinine clearance per dosing reference text.Please contact the Clinical Pharmacist for questions. Performing Organization Address City/[facility]/Zipcode Phone Number MAIN [facility] [address] [place] [address] * PROTIME INR (PT) (09/14/2018 3:54 AM CDT) INR 1.7 (H) 0.8 - 1.2 [facility] Specimen Blood Performing Organization Address [facility] Phone Number [facility] [address] [place] [address] * POC GLUCOSE (09/13/2018 9:00 PM CDT) Glucose, POC 124 (H) 70 - 100 MG/DL [facility] Performing Organization Address [facility] Phone Number [facility] [address] [place] [address] * POC GLUCOSE (09/13/2018 8:15 AM CDT) Glucose, POC 113 (H) 70 - 100 MG/DL [facility] Performing Organization Address [facility] Phone Number MAIN [facility] [address] [place] [address] * CHEST 2 VIEWS (09/13/2018 6:34 AM CDT) Impressions Performed At Stable chest radiograph demonstrating cardiomegaly and pulmonary vascular [facility] RAD RESULTS congestion with gradually improving perihilar edema. Bilateral pleural effusions associated with atelectasis and consolidation of the lower lobes, left greater than right. Finalized by Albert Leyva M.D. on 09/13/2018 11:37 AM. Dictated by Albert Leyva M.D. on 09/13/2018 11:36 AM. Narrative Performed At CHEST 2 VIEWS [facility] RESULTS History: atelectasis. Mitral valve disease, pleural effusion, atelectasis Technique: PA and lateral views of the chest were obtained. Comparison: Comparison is made to an examination of 09/12/2018. Findings: Changes of sternotomy, mitral valve repair and left atrial appendage clip placement are again identified. There is unchanged cardiomegaly. There is persistent pulmonary venous congestion. Zones of atelectasis and consolidation lower lobes shown little change. Bilateral pleural effusions are again identified. No significant pneumothorax is seen. Procedure Note Interface, Radiant Results - 09/13/2018 11:40 AM CDT CHEST 2 VIEWS History: atelectasis. Mitral valve disease, pleural effusion, atelectasis Technique: PA and lateral views of the chest were obtained. Comparison: Comparison is made to an examination of 09/12/2018. Findings: Changes of sternotomy, mitral valve repair and left atrial appendage clip placement are again identified. There is unchanged cardiomegaly. There is persistent pulmonary venous congestion. Zones of atelectasis and consolidation lower lobes shown little change. Bilateral pleural effusions are again identified. No significant pneumothorax is seen. IMPRESSION Stable chest radiograph demonstrating cardiomegaly and pulmonary vascular congestion with gradually improving perihilar edema. Bilateral pleural effusions associated with atelectasis and consolidation of the lower lobes, left greater than right. Finalized by Albert Leyva M.D. on 09/13/2018 11:37 AM. Dictated by Albert Leyva M.D. on 09/13/2018 11:36 AM. Performing Organization Address City/State/Zipcode Phone Number RAD RESULTS * PROTIME INR (PT) (09/13/2018 4:45 AM CDT) INR 2.0 (H) 0.8 - 1.2 [facility] Specimen Blood Performing Organization Address City/[facility]/Zipcode Phone Number [facility] [address] [place] [address] * BASIC METABOLIC PANEL (09/13/2018 4:45 AM CDT) Sodium 133 (L) 137 - 147 MMOL/L [facility] Potassium 4.0 3.5 - 5.1 MMOL/L [facility] Chloride 94 (L) 98 - 110 MMOL/L [facility] CO2 31 (H) 21 - 30 MMOL/L [facility] Anion Gap 8 3 - 12 [facility] Glucose 105 (H) 70 - 100 MG/DL [facility] Blood Urea Nitrogen 47 (H) 7 - 25 MG/DL [facility] Creatinine 1.41 (H) 0.4 - 1.00 MG/DL [facility] Calcium 9.6 8.5 - 10.6 MG/DL [facility] eGFR Non 37 (L) >60 mL/min [facility] Comment: The eGFR is not validated for use in drug dosing adjustments.Continue to use estimated creatinine clearance per dosing reference text.Please contact the Clinical Pharmacist for questions. eGFR 45 (L) >60 mL/min [facility] Comment: The eGFR is not validated for use in drug dosing adjustments.Continue to use estimated creatinine clearance per dosing reference text.Please contact the Clinical Pharmacist for questions. Specimen Blood Performing Organization Address City/[facility]/Zipcode Phone Number [facility] [address] [place] [address] * CBC (09/13/2018 4:45 AM CDT) White Blood Cells 6.8 4.5 - 11.0 K/UL [facility] RBC 2.92 (L) 4.0 - 5.0 M/UL [facility] Hemoglobin 8.8 (L) 12.0 - 15.0 GM/DL [facility] Hematocrit 26.5 (L) 36 - 45 % [facility] MCV 90.6 80 - 100 FL [facility] MCH 30.0 26 - 34 PG [facility] MCHC 33.1 32.0 - 36.0 G/DL [facility] RDW 14.6 11 - 15 % MAIN LAB Platelet Count 163 150 - 400 K/UL [facility] MPV 8.6 7 - 11 FL [facility] Specimen Blood Performing Organization Address City/[facility] Phone Number [facility] [address] [place] [address] * POC GLUCOSE (09/12/2018 9:18 PM CDT) Glucose, POC 150 (H) 70 - 100 MG/DL [facility] Performing Organization Address City/[facility] Phone Number [facility] [address] [place] [address] * POC GLUCOSE (09/12/2018 5:23 PM CDT) Glucose, POC 105 (H) 70 - 100 MG/DL [facility] Performing Organization Address City/[facility] Phone Number [facility] [address] [place] [address] * POC GLUCOSE (09/12/2018 12:08 PM CDT) Glucose, POC 91 70 - 100 MG/DL [facility] Performing Organization Address City/[facility]/Zipcode Phone Number [facility] [address] [place] [address] * POC GLUCOSE (09/12/2018 8:43 AM CDT) Glucose, POC 99 70 - 100 MG/DL [facility] Performing Organization Address City/[facility]/Zipcode Phone Number [facility] [address] [place] [address] * CHEST SINGLE VIEW (09/12/2018 6:19 AM CDT) Impressions Performed At 1. Persistent cardiomegaly with mild improvement in perihilar edema. [facility] RAD RESULTS 2. Persistent zones of atelectasis and or pneumonitis involving the bilateral lower lobes. Finalized by Emmanuel Anaya M.D. on 09/12/2018 8:17 AM. Dictated by Emmanuel Anaya M.D. on 09/12/2018 8:15 AM. Narrative Performed At Portable upright AP chest [facility] RESULTS Clinical history: Atelectasis. Comparison: 09/11/2018. Findings: Portable upright AP chest again demonstrate prior median sternotomy, left atrial clipping and mitral valvular repair. There is persistent moderate cardiomegaly with mild improvement in perihilar edema. Zones of atelectasis and or pneumonitis involving the lower lobes are again seen. No pneumothorax. Procedure Note Interface, Radiant Results - 09/12/2018 8:20 AM CDT Portable upright AP chest Clinical history: Atelectasis. Comparison: 09/11/2018. Findings: Portable upright AP chest again demonstrate prior median sternotomy, left atrial clipping and mitral valvular repair. There is persistent moderate cardiomegaly with mild improvement in perihilar edema. Zones of atelectasis and or pneumonitis involving the lower lobes are again seen. No pneumothorax. IMPRESSION 1. Persistent cardiomegaly with mild improvement in perihilar edema. 2. Persistent zones of atelectasis and or pneumonitis involving the bilateral lower lobes. Finalized by Emmanuel Anaya M.D. on 09/12/2018 8:17 AM. Dictated by Emmanuel Anaya M.D. on 09/12/2018 8:15 AM. Performing Organization Address [facility] Phone Number [facility] RESULTS * POC GLUCOSE (09/12/2018 3:44 AM CDT) Glucose, POC 94 70 - 100 MG/DL [facility] Performing Organization Address [facility] Phone Number [facility] [address] [place] [address] * PROTIME INR (PT) (09/12/2018 3:30 AM CDT) INR 2.9 (H) 0.8 - 1.2 [facility] Specimen Blood Performing Organization Address City/[facility] Phone Number [facility] [address] [place] [address] * MAGNESIUM (09/12/2018 3:30 AM CDT) Magnesium 2.1 1.6 - 2.6 mg/dL [facility] Specimen Blood Performing Organization Address City/[facility] Phone Number [facility] [address] [place] [address] * BASIC METABOLIC PANEL (09/12/2018 3:30 AM CDT) Sodium 136 (L) 137 - 147 MMOL/L [facility] Potassium 4.2 3.5 - 5.1 MMOL/L [facility] Chloride 97 (L) 98 - 110 MMOL/L [facility] CO2 30 21 - 30 MMOL/L [facility] Anion Gap 9 3 - 12 [facility] Glucose 91 70 - 100 MG/DL [facility] Blood Urea Nitrogen 45 (H) 7 - 25 MG/DL [facility] Creatinine 1.59 (H) 0.4 - 1.00 MG/DL [facility] Calcium 10.2 8.5 - 10.6 MG/DL [facility] eGFR Non 32 (L) >60 mL/min [facility] Comment: The eGFR is not validated for use in drug dosing adjustments.Continue to use estimated creatinine clearance per dosing reference text.Please contact the Clinical Pharmacist for questions. eGFR 39 (L) >60 mL/min [facility] Comment: The eGFR is not validated for use in drug dosing adjustments.Continue to use estimated creatinine clearance per dosing reference text.Please contact the Clinical Pharmacist for questions. Specimen Blood Performing Organization Address [facility] Phone Number [facility] [address] [place] [address] * CBC (09/12/2018 3:30 AM CDT) White Blood Cells 7.6 4.5 - 11.0 K/UL [facility] RBC 2.94 (L) 4.0 - 5.0 M/UL [facility] Hemoglobin 9.0 (L) 12.0 - 15.0 GM/DL [facility] Hematocrit 26.7 (L) 36 - 45 % [facility] MCV 90.8 80 - 100 FL [facility] MCH 30.4 26 - 34 PG [facility] MCHC 33.5 32.0 - 36.0 G/DL [facility]IN LAB RDW 15.1 (H) 11 - 15 % MAIN LAB Platelet Count 131 (L) 150 - 400 K/UL MAIN LAB MPV 8.7 7 - 11 FL [facility]IN [facility] Specimen Blood Performing Organization Address City/[facility] Phone Number [facility] [address] [place] [address] * POC GLUCOSE (09/11/2018 9:18 PM CDT) Glucose, POC 132 (H) 70 - 100 MG/DL [facility] Performing Organization Address City/[facility] Phone Number [facility] [address] [place] [address] * POC GLUCOSE (09/11/2018 4:12 PM CDT) Glucose, POC 99 70 - 100 MG/DL [facility] Performing Organization Address [facility] Phone Number MA[facility] [address] [place] [address] * PHOSPHORUS (09/11/2018 4:10 PM CDT) Phosphorus 3.4Comment: NOTE NEW REFERENCE 2.0 - 4.5 MG/DL [facility]IN [facility] RANGES Specimen Blood Performing Organization Address City/[facility] Phone Number [facility] [address] [phone] * MAGNESIUM (09/11/2018 4:10 PM CDT) Magnesium 2.1 1.6 - 2.6 mg/dL [facility]IN LAB Specimen Blood Performing Organization Address [facility] [facility] [address] [phone] * BASIC METABOLIC PANEL (09/11/2018 4:10 PM CDT) Sodium 135 (L) 137 - 147 MMOL/L MAIN LAB Potassium 3.8 3.5 - 5.1 MMOL/L MAIN LAB Chloride 96 (L) 98 - 110 MMOL/L MAIN LAB CO2 31 (H) 21 - 30 MMOL/L [facility] MAIN [facility] Anion Gap 8 3 - 12 MAIN LAB Glucose 99 70 - 100 MG/DL MAIN LAB Blood Urea Nitrogen 41 (H) 7 - 25 MG/DL MAIN LAB Creatinine 1.52 (H) 0.4 - 1.00 MG/DL [facility] MAIN [facility] Calcium 10.5 8.5 - 10.6 MG/DL [facility] MAIN [facility] eGFR Non 34 (L) >60 mL/min [facility] MAIN [facility] Comment: The eGFR is not validated for use in drug dosing adjustments.Continue to use estimated creatinine clearance per dosing reference text.Please contact the Clinical Pharmacist for questions. eGFR 41 (L) >60 mL/min [facility] MAIN LAB Comment: The eGFR is not validated for use in drug dosing adjustments.Continue to use estimated creatinine clearance per dosing reference text.Please contact the Clinical Pharmacist for questions. Specimen Blood Performing Organization Address City/[facility]/Zipcode Phone Number [facility] MAIN LAB [address] [place] [address] * POC GLUCOSE (09/11/2018 12:12 PM CDT) Glucose, POC 105 (H) 70 - 100 MG/DL [facility] MAIN LAB Performing Organization Address [facility] Phone Number [facility] [address] [place] [address] * POC GLUCOSE (09/11/2018 8:47 AM CDT) Glucose, POC 102 (H) 70 - 100 MG/DL [facility] MAIN LAB Performing Organization Address [facility] Phone Number [facility] MA[facility] [address] [place] [address] * CHEST SINGLE VIEW (09/11/2018 4:37 AM CDT) Impressions Performed At Cardiomegaly with progression of findings of vascular congestion and pulmonary [facility] RAD RESULTS edema. Persistent zones of atelectasis and pneumonitis in the lower lobes. Finalized by Albert Leyva M.D. on 09/11/2018 10:31 AM. Dictated by Albert Leyva M.D. on 09/11/2018 10:30 AM. Narrative Performed At CHEST SINGLE VIEW [facility] RAD RESULTS History: s/p MVR, Maze. Mitral insufficiency, cardiomegaly Technique: Single portable AP upright view of the chest was obtained. Comparison: Comparison is made to an examination of the previous day.. Findings: Changes of prior sternotomy, mitral valve annuloplasty, and left atrial appendage clip placement are again identified. There has been change in the generalized cardiomegaly but there has been progression of findings of vascular congestion and pulmonary edema. Zones of atelectasis and pneumonitis in the lower lobes persist. No pneumothorax is identified. Procedure Note Interface, Radiant Results - 09/11/2018 10:34 AM CDT CHEST SINGLE VIEW History: s/p MVR, Maze. Mitral insufficiency, cardiomegaly Technique: Single portable AP upright view of the chest was obtained. Comparison: Comparison is made to an examination of the previous day.. Findings: Changes of prior sternotomy, mitral valve annuloplasty, and left atrial appendage clip placement are again identified. There has been change in the generalized cardiomegaly but there has been progression of findings of vascular congestion and pulmonary edema. Zones of atelectasis and pneumonitis in the lower lobes persist. No pneumothorax is identified. IMPRESSION Cardiomegaly with progression of findings of vascular congestion and pulmonary edema. Persistent zones of atelectasis and pneumonitis in the lower lobes. Finalized by Albert Leyva M.D. on 09/11/2018 10:31 AM. Dictated by Albert Leyva M.D. on 09/11/2018 10:30 AM. Performing Organization Address [facility] Phone Number RAD RESULTS * POC GLUCOSE (09/11/2018 3:23 AM CDT) Glucose, POC 104 (H) 70 - 100 MG/DL MAIN LAB Performing Organization Address [facility] Phone Number [facility] [address] [place] [address] * PROTIME INR (PT) (09/11/2018 3:20 AM CDT) INR 2.2 (H) 0.8 - 1.2 MAIN LAB Specimen Blood Performing Organization Address [facility] Phone Number MAIN LAB [address] [place] [address] * BASIC METABOLIC PANEL (09/11/2018 3:20 AM CDT) Sodium 135 (L) 137 - 147 MMOL/L [facility] MAIN LAB Potassium 4.1 3.5 - 5.1 MMOL/L [facility] MAIN [facility] Chloride 100 98 - 110 MMOL/L [facility] MAIN LAB CO2 26 21 - 30 MMOL/L [facility] MAIN [facility] Anion Gap 9 3 - 12 [facility] MAIN [facility] Glucose 104 (H) 70 - 100 MG/DL [facility] MAIN [facility] Blood Urea Nitrogen 38 (H) 7 - 25 MG/DL [facility] MAIN [facility] Creatinine 1.69 (H) 0.4 - 1.00 MG/DL [facility] MAIN [facility] Calcium 10.3 8.5 - 10.6 MG/DL [facility] MAIN LAB eGFR Non 30 (L) >60 mL/min [facility] MAIN LAB Comment: The eGFR is not validated for use in drug dosing adjustments.Continue to use estimated creatinine clearance per dosing reference text.Please contact the Clinical Pharmacist for questions. eGFR 37 (L) >60 mL/min [facility] MAIN LAB Comment: The eGFR is not validated for use in drug dosing adjustments.Continue to use estimated creatinine clearance per dosing reference text.Please contact the Clinical Pharmacist for questions. Specimen Blood Performing Organization Address City/[facility] Phone Number [facility] [address] [place] [address] * CBC (09/11/2018 3:20 AM CDT) White Blood Cells 11.9 (H) 4.5 - 11.0 K/UL [facility] MAIN LAB RBC 3.09 (L) 4.0 - 5.0 M/UL [facility] MAIN LAB Hemoglobin 9.3 (L) 12.0 - 15.0 GM/DL [facility] MAIN LAB Hematocrit 27.8 (L) 36 - 45 % [facility] MAIN LAB MCV 90.0 80 - 100 FL [facility] MAIN LAB MCH 30.2 26 - 34 PG [facility] MAIN LAB MCHC 33.6 32.0 - 36.0 G/DL [facility] MAIN LAB RDW 15.4 (H) 11 - 15 % [facility] MAIN LAB Platelet Count 122 (L) 150 - 400 K/UL [facility] MAIN LAB MPV 9.2 7 - 11 FL MAIN LAB Specimen Blood Performing Organization Address [facility] Phone Number [facility] MA[facility] [address] [place] [address] * POC GLUCOSE (09/10/2018 8:48 PM CDT) Glucose, POC 122 (H) 70 - 100 MG/DL [facility] MAIN [facility] Performing Organization Address City/[facility] Phone Number [facility] [address] [place] [address] * POC GLUCOSE (09/10/2018 5:22 PM CDT) Glucose, POC 119 (H) 70 - 100 MG/DL [facility] MAIN [facility] Performing Organization Address [facility] Phone Number [facility] [address] [place] [address] * MAGNESIUM (09/10/2018 5:20 PM CDT) Magnesium 2.5 1.6 - 2.6 mg/dL [facility] MAIN LAB Specimen Blood Performing Organization Address City/[facility]/Zipcode Phone Number [facility] MAIN LAB [address] [place] [address] * BASIC METABOLIC PANEL (09/10/2018 5:20 PM CDT) Sodium 135 (L) 137 - 147 MMOL/L [facility] MAIN [facility] Potassium 4.3 3.5 - 5.1 MMOL/L [facility] MAIN [facility] Chloride 101 98 - 110 MMOL/L [facility] MAIN [facility] CO2 26 21 - 30 MMOL/L [facility] MAIN [facility] Anion Gap 8 3 - 12 [facility] MAIN LAB Glucose 114 (H) 70 - 100 MG/DL [facility] MAIN [facility] Blood Urea Nitrogen 35 (H) 7 - 25 MG/DL [facility] MAIN [facility] Creatinine 1.72 (H) 0.4 - 1.00 MG/DL [facility] MAIN [facility] Calcium 10.1 8.5 - 10.6 MG/DL [facility] MAIN [facility] eGFR Non 30 (L) >60 mL/min [facility] MAIN LAB Comment: The eGFR is not validated for use in drug dosing adjustments.Continue to use estimated creatinine clearance per dosing reference text.Please contact the Clinical Pharmacist for questions. eGFR 36 (L) >60 mL/min [facility] MAIN [facility] Comment: The eGFR is not validated for use in drug dosing adjustments.Continue to use estimated creatinine clearance per dosing reference text.Please contact the Clinical Pharmacist for questions. Specimen Blood Performing Organization Address City/[facility]/Zipcode Phone Number MAIN LAB [address] [place] [address] * POC GLUCOSE (09/10/2018 12:12 PM CDT) Glucose, POC 120 (H) 70 - 100 MG/DL [facility] MAIN LAB Performing Organization Address City/[facility]/Zipcode Phone Number MAIN LAB [address] [place] [address] * BASIC METABOLIC PANEL (09/10/2018 12:10 PM CDT) Sodium 134 (L) 137 - 147 MMOL/L [facility] MAIN [facility] Potassium 4.3 3.5 - 5.1 MMOL/L [facility] MAIN [facility] Chloride 102 98 - 110 MMOL/L [facility] MAIN [facility] CO2 26 21 - 30 MMOL/L [facility] MAIN [facility] Anion Gap 6 3 - 12 [facility] MAIN [facility] Glucose 118 (H) 70 - 100 MG/DL [facility] MAIN [facility] Blood Urea Nitrogen 34 (H) 7 - 25 MG/DL [facility] MAIN [facility] Creatinine 1.65 (H) 0.4 - 1.00 MG/DL [facility] MAIN LAB Calcium 9.9 8.5 - 10.6 MG/DL [facility] MAIN LAB eGFR Non 31 (L) >60 mL/min [facility] MAIN LAB Comment: The eGFR is not validated for use in drug dosing adjustments.Continue to use estimated creatinine clearance per dosing reference text.Please contact the Clinical Pharmacist for questions. eGFR 38 (L) >60 mL/min [facility] MAIN LAB Comment: The eGFR is not validated for use in drug dosing adjustments.Continue to use estimated creatinine clearance per dosing reference text.Please contact the Clinical Pharmacist for questions. Specimen Blood Performing Organization Address City/[facility]/Zipcode Phone Number MAIN LAB [address] [place] [address] * POC GLUCOSE (09/10/2018 8:08 AM CDT) Glucose, POC 120 (H) 70 - 100 MG/DL [facility] MAIN LAB Performing Organization Address City/[facility] Phone Number MA[facility] LAB [address] [place] [address] * CHEST SINGLE VIEW (09/10/2018 4:15 AM CDT) Impressions Performed At 1.Limited depth of inspiration with unchanged perihilar opacities and small [facility] RAD RESULTS left pleural effusion. Finalized by Chidi Garcia M.D. on 09/10/2018 10:56 AM. Dictated by Chidi Garcia M.D. on 09/10/2018 10:54 AM. Narrative Performed At Procedure: CHEST SINGLE VIEW [facility] RAD RESULTS Clinical Indication: Status post MVR Comparison: Chest x-ray 09/09/2018 Findings: Prior median sternotomy, mitral valve annuloplasty, and left atrial appendage clipping. Limited depth of inspiration with crowding of the heart and pulmonary vasculature as well as persistent perihilar opacities. Unchanged small left pleural effusion. No pneumothorax. Procedure Note Interface, Radiant Results - 09/10/2018 10:59 AM CDT Procedure: CHEST SINGLE VIEW Clinical Indication: Status post MVR Comparison: Chest x-ray 09/09/2018 Findings: Prior median sternotomy, mitral valve annuloplasty, and left atrial appendage clipping. Limited depth of inspiration with crowding of the heart and pulmonary vasculature as well as persistent perihilar opacities. Unchanged small left pleural effusion. No pneumothorax. IMPRESSION 1. Limited depth of inspiration with unchanged perihilar opacities and small left pleural effusion. Finalized by Chidi Garcia M.D. on 09/10/2018 10:56 AM. Dictated by Chidi Garcia M.D. on 09/10/2018 10:54 AM. Performing Organization Address [facility] Phone Number RAD RESULTS * POC GLUCOSE (09/10/2018 3:02 AM CDT) Glucose, POC 152 (H) 70 - 100 MG/DL MAIN LAB Performing Organization Address [facility] Phone Number MAIN LAB [address] [place] [address] * MAGNESIUM (09/10/2018 1:50 AM CDT) Magnesium 2.3 1.6 - 2.6 mg/dL MAIN LAB Performing Organization Address [facility] Phone Number MAIN LAB [address] [place] [address] * PROTIME INR (PT) (09/10/2018 1:50 AM CDT) INR 1.3 (H) 0.8 - 1.2 MAIN LAB Specimen Blood Performing Organization Address [facility] Phone Number MAIN LAB [address] [place] [address] * BASIC METABOLIC PANEL (09/10/2018 1:50 AM CDT) Sodium 136 (L) 137 - 147 MMOL/L [facility] MAIN LAB Potassium 3.8 3.5 - 5.1 MMOL/L [facility] MAIN LAB Chloride 104 98 - 110 MMOL/L [facility] MAIN LAB CO2 24 21 - 30 MMOL/L [facility] MAIN LAB Anion Gap 8 3 - 12 [facility] MAIN LAB Glucose 145 (H) 70 - 100 MG/DL [facility] MAIN LAB Blood Urea Nitrogen 30 (H) 7 - 25 MG/DL [facility] MAIN LAB Creatinine 1.85 (H) 0.4 - 1.00 MG/DL [facility] MAIN LAB Calcium 9.3 8.5 - 10.6 MG/DL [facility] MAIN LAB eGFR Non 27 (L) >60 mL/min [facility] MAIN LAB Comment: The eGFR is not validated for use in drug dosing adjustments.Continue to use estimated creatinine clearance per dosing reference text.Please contact the Clinical Pharmacist for questions. eGFR 33 (L) >60 mL/min [facility] MAIN LAB Comment: The eGFR is not validated for use in drug dosing adjustments.Continue to use estimated creatinine clearance per dosing reference text.Please contact the Clinical Pharmacist for questions. Specimen Blood Performing Organization Address City/[facility]/Zipcode Phone Number MAIN LAB [address] [place] [address] * CBC (09/10/2018 1:50 AM CDT) White Blood Cells 12.5 (H) 4.5 - 11.0 K/UL [facility] MAIN LAB RBC 3.05 (L) 4.0 - 5.0 M/UL [facility] MAIN LAB Hemoglobin 9.3 (L) 12.0 - 15.0 GM/DL [facility] MAIN LAB Hematocrit 27.3 (L) 36 - 45 % [facility] MAIN LAB MCV 89.3 80 - 100 FL [facility] MAIN LAB MCH 30.5 26 - 34 PG [facility] MAIN LAB MCHC 34.1 32.0 - 36.0 G/DL [facility] MAIN LAB RDW 14.8 11 - 15 % [facility] MAIN LAB Platelet Count 110 (L) 150 - 400 K/UL [facility] MAIN LAB MPV 8.9 7 - 11 FL [facility] MAIN LAB Specimen Blood Performing Organization Address City/[facility] Phone Number [facility] [address] [place] [address] * POC GLUCOSE (09/09/2018 9:07 PM CDT) Glucose, POC 165 (H) 70 - 100 MG/DL [facility] MAIN LAB Performing Organization Address City/[facility] Phone Number [facility] [address] [place] [address] * POC GLUCOSE (09/09/2018 6:05 PM CDT) Glucose, POC 152 (H) 70 - 100 MG/DL [facility] MAIN LAB Performing Organization Address [facility] Phone Number [facility] [address] [place] [address] * BASIC METABOLIC PANEL (09/09/2018 3:45 PM CDT) Sodium 136 (L) 137 - 147 MMOL/L [facility] MAIN LAB Potassium 4.3 3.5 - 5.1 MMOL/L [facility] MAIN LAB Chloride 104 98 - 110 MMOL/L [facility] MAIN [facility] CO2 22 21 - 30 MMOL/L [facility] MAIN LAB Anion Gap 10 3 - 12 [facility] MAIN [facility] Glucose 161 (H) 70 - 100 MG/DL [facility] MAIN LAB Blood Urea Nitrogen 29 (H) 7 - 25 MG/DL [facility] MAIN LAB Creatinine 1.79 (H) 0.4 - 1.00 MG/DL [facility] MAIN LAB Calcium 9.5 8.5 - 10.6 MG/DL [facility] MAIN LAB eGFR Non 28 (L) >60 mL/min [facility] MAIN LAB Comment: The eGFR is not validated for use in drug dosing adjustments.Continue to use estimated creatinine clearance per dosing reference text.Please contact the Clinical Pharmacist for questions. eGFR 34 (L) >60 mL/min [facility] MAIN LAB Comment: The eGFR is not validated for use in drug dosing adjustments.Continue to use estimated creatinine clearance per dosing reference text.Please contact the Clinical Pharmacist for questions. Specimen Blood Performing Organization Address City/State/Zipcode Phone Number MAIN LAB [address] [place] [address] * CHEST SINGLE VIEW (09/09/2018 3:35 PM CDT) Impressions Performed At 1.Limited depth of inspiration with unchanged perihilar opacities and small [facility] RAD RESULTS left pleural effusion. 2.Interval removal of the thoracostomy and mediastinal tubes without pneumothorax. Approved by Janee Johns M.D. on 09/10/2018 9:30 AM By my electronic signature, I attest that I have personally reviewed the images for this examination and formulated the interpretations and opinions expressed in this report Finalized by Chidi Garcia M.D. on 09/10/2018 10:02 AM. Dictated by Janee Johns M.D. on 09/10/2018 7:20 AM. Narrative Performed At Procedure: CHEST SINGLE VIEW [facility] RAD RESULTS Clinical Indication: Chest tube removal Comparison: Chest x-ray 09/09/2018 Findings: Prior median sternotomy, mitral valve annuloplasty, and left atrial appendage clipping. Limited depth of inspiration with crowding of the heart and pulmonary vasculature as well as persistent perihilar opacities. Unchanged small left pleural effusion. Interval removal of the mediastinal drains and thoracostomy tube. No pneumothorax. Procedure Note Interface, Radiant Results - 09/10/2018 10:05 AM CDT Procedure: CHEST SINGLE VIEW Clinical Indication: Chest tube removal Comparison: Chest x-ray 09/09/2018 Findings: Prior median sternotomy, mitral valve annuloplasty, and left atrial appendage clipping. Limited depth of inspiration with crowding of the heart and pulmonary vasculature as well as persistent perihilar opacities. Unchanged small left pleural effusion. Interval removal of the mediastinal drains and thoracostomy tube. No pneumothorax. IMPRESSION 1. Limited depth of inspiration with unchanged perihilar opacities and small left pleural effusion. 2. Interval removal of the thoracostomy and mediastinal tubes without pneumothorax. Approved by Janee Johns M.D. on 09/10/2018 9:30 AM By my electronic signature, I attest that I have personally reviewed the images for this examination and formulated the interpretations and opinions expressed in this report Finalized by Chidi Garcia M.D. on 09/10/2018 10:02 AM. Dictated by Janee Johns M.D. on 09/10/2018 7:20 AM. Performing Organization Address [facility] Phone Number [facility] RAD RESULTS * POC GLUCOSE (09/09/2018 8:56 AM CDT) Glucose, POC 124 (H) 70 - 100 MG/DL [facility] MAIN LAB Performing Organization Address [facility] Phone Number [facility] MAIN LAB [address] [place] [address] * O2 SATURATION, MIXED VENOUS (09/09/2018 8:48 AM CDT) [id number] Venous 57.9 % [facility] MAIN LAB Specimen Blood Performing Organization Address [facility] Phone Number [facility] MAIN LAB [address] [place] [address] * POC GLUCOSE (09/09/2018 6:52 AM CDT) Glucose, POC 133 (H) 70 - 100 MG/DL [facility] MAIN LAB Performing Organization Address [facility] Phone Number [facility] MAIN LAB [address] [place] [address] * CHEST SINGLE VIEW (09/09/2018 4:56 AM CDT) Impressions Performed At 1.Removal of the ET tube and NG tube. [facility] RAD RESULTS 2.Limited depth of inspiration with mild hazy opacities in both lung bases that most likely represents atelectasis.Mild blunting of the left costophrenic angle may represent a small effusion or atelectasis. Finalized by Daniel Cuadra M.D. on 09/09/2018 10:16 AM. Dictated by Daniel Cuadra M.D. on 09/09/2018 10:14 AM. Narrative Performed At CHEST SINGLE VIEW [facility] RAD RESULTS Clinical Indication: Female, 68 years old.Status post mitral valve replacement, maze Comparison: X-ray September 08, 2018 Findings: Single portable upright AP chest x-ray was obtained.ET tube and NG tube have been removed.The other various indwelling medical devices all remain in similar position.Limited depth of inspiration and mild blunting of the left costophrenic angle.Minimal hazy opacities in the lung bases.No pneumothorax is visualized. Procedure Note Interface, Radiant Results - 09/09/2018 10:19 AM CDT CHEST SINGLE VIEW Clinical Indication: Female, 68 years old. Status post mitral valve replacement , maze Comparison: X-ray September 08, 2018 Findings: Single portable upright AP chest x-ray was obtained. ET tube and NG tube have been removed. The other various indwelling medical devices all remain in similar position. Limited depth of inspiration and mild blunting of the left costophrenic angle. Minimal hazy opacities in the lung bases. No pneumothorax is visualized. IMPRESSION 1. Removal of the ET tube and NG tube. 2. Limited depth of inspiration with mild hazy opacities in both lung bases that most likely represents atelectasis. Mild blunting of the left costophrenic angle may represent a small effusion or atelectasis. Finalized by Daniel Cuadra M.D. on 09/09/2018 10:16 AM. Dictated by Daniel Cuadra M.D. on 09/09/2018 10:14 AM. Performing Organization Address City/State/Zipcode Phone Number [facility] RAD RESULTS * POC GLUCOSE (09/09/2018 4:21 AM CDT) Glucose, POC 136 (H) 70 - 100 MG/DL [facility] MAIN LAB Performing Organization Address City/State/Zipcode Phone Number MAIN LAB [address] [place] [address] * O2 SATURATION, MIXED VENOUS (09/09/2018 4:11 AM CDT) [id number] Venous 64.1 % [facility] MAIN LAB Specimen Blood Performing Organization Address [facility] Phone Number MAIN LAB [address] [place] [address] * BASIC METABOLIC PANEL (09/09/2018 4:11 AM CDT) Sodium 140 137 - 147 MMOL/L [facility] MAIN LAB Potassium 3.9 3.5 - 5.1 MMOL/L [facility] MAIN LAB Chloride 106 98 - 110 MMOL/L [facility] MAIN LAB CO2 24 21 - 30 MMOL/L [facility] MAIN [facility] Anion Gap 10 3 - 12 [facility] MAIN LAB Glucose 136 (H) 70 - 100 MG/DL [facility] MAIN LAB Blood Urea Nitrogen 22 7 - 25 MG/DL [facility] MAIN LAB Creatinine 1.39 (H) 0.4 - 1.00 MG/DL [facility] MAIN LAB Calcium 9.4 8.5 - 10.6 MG/DL [facility] MAIN LAB eGFR Non 38 (L) >60 mL/min [facility] MAIN LAB Comment: The eGFR is not validated for use in drug dosing adjustments.Continue to use estimated creatinine clearance per dosing reference text.Please contact the Clinical Pharmacist for questions. eGFR 46 (L) >60 mL/min [facility] MAIN LAB Comment: The eGFR is not validated for use in drug dosing adjustments.Continue to use estimated creatinine clearance per dosing reference text.Please contact the Clinical Pharmacist for questions. Specimen Blood Performing Organization Address [facility] Phone Number MAIN LAB [address] [place] [address] * CBC (09/09/2018 4:11 AM CDT) White Blood Cells 10.5 4.5 - 11.0 K/UL [facility] MAIN LAB RBC 3.59 (L) 4.0 - 5.0 M/UL MAIN LAB Hemoglobin 10.9 (L) 12.0 - 15.0 GM/DL [facility] MAIN LAB Hematocrit 32.1 (L) 36 - 45 % [facility] MAIN LAB MCV 89.4 80 - 100 FL [facility] MAIN LAB MCH 30.2 26 - 34 PG [facility] MAIN LAB MCHC 33.8 32.0 - 36.0 G/DL [facility] MAIN LAB RDW 14.3 11 - 15 % [facility] MAIN LAB Platelet Count 159 150 - 400 K/UL [facility] MAIN LAB MPV 9.0 7 - 11 FL [facility] MAIN LAB Specimen Blood Performing Organization Address City/[facility]/Zipcode Phone Number MAIN LAB [address] [place] [address] * POC GLUCOSE (09/09/2018 2:04 AM CDT) Glucose, POC 127 (H) 70 - 100 MG/DL [facility] MAIN LAB Performing Organization Address [facility] Phone Number MA[facility] LAB [address] [place] [address] * POC GLUCOSE (09/09/2018 12:23 AM CDT) Glucose, POC 119 (H) 70 - 100 MG/DL [facility] MAIN LAB Performing Organization Address [facility] Phone Number MA[facility] LAB [address] [place] [address] * O2 SATURATION, MIXED VENOUS (09/09/2018 12:17 AM CDT) [id number] Venous 65.1 % MAIN LAB Specimen Blood Performing Organization Address City/[facility] Phone Number MAIN LAB [address] [place] [address] * POC GLUCOSE (09/08/2018 8:35 PM CDT) Glucose, POC 130 (H) 70 - 100 MG/DL MAIN LAB Performing Organization Address [facility] Phone Number MAIN LAB [address] [place] [address] * POTASSIUM (09/08/2018 8:27 PM CDT) Potassium 4.0 3.5 - 5.1 MMOL/L MAIN LAB Specimen Blood Performing Organization Address [facility] Phone Number MAIN LAB [address] [place] [address] * O2 SATURATION, MIXED VENOUS (09/08/2018 8:27 PM CDT) [id number] Venous 64.5 % MAIN LAB Specimen Blood Performing Organization Address [facility] Phone Number MAIN LAB [address] [place] [address] * BLOOD GASES, ARTERIAL (09/08/2018 6:50 PM CDT) pH-Arterial 7.40 7.35 - 7.45 [facility] MAIN LAB pCO2-Arterial 39 35 - 45 MMHG [facility] MAIN LAB pO2-Arterial 88 80 - 100 MMHG [facility] MAIN LAB Base Deficit-Arterial 0.5 MMOL/L [facility] MAIN LAB O2 Sat-Arterial 96.8 95 - 99 % [facility] MAIN LAB [id number]-IRS-Onz 24.0 21 - 28 MMOL/L [facility] MAIN LAB Specimen Blood, arterial - Blood Performing Organization Address [facility] Phone Number MAIN LAB [address] [place] [address] * POC GLUCOSE (09/08/2018 6:49 PM CDT) Glucose, POC 131 (H) 70 - 100 MG/DL [facility] MAIN LAB Performing Organization Address [facility] Phone Number [facility] [address] [place] [address] * POC BLOOD GAS ARTERIAL (09/08/2018 5:41 PM CDT) PH-ART-POC 7.41 7.35 - 7.45 [facility] MAIN LAB [id number] 40 35 - 45 MMHG [facility] MAIN LAB PO2-ART-POC 85 80 - 100 MMHG [facility] MAIN LAB Base Ex-ART-POC 1.0 MMOL/L MAIN LAB O2 Sat-ART-POC 97.0 95 - 99 % MAIN LAB Altrdrwfvqq-LTU-XQA 25.3 21 - 28 MMOL/L MAIN LAB Performing Organization Address [facility] Phone Number MA[facility] LAB [address] [place] [address] * POC GLUCOSE (09/08/2018 5:38 PM CDT) Glucose, POC 138 (H) 70 - 100 MG/DL [facility] MAIN LAB Performing Organization Address [facility] Phone Number MAIN LAB [address] [place] [address] * POTASSIUM (09/08/2018 5:35 PM CDT) Potassium 3.7 3.5 - 5.1 MMOL/L MAIN LAB Specimen Blood Performing Organization Address City/[facility]/Zipcode Phone Number MAIN LAB [address] [place] [address] * MAGNESIUM (09/08/2018 5:35 PM CDT) Magnesium 2.9 (H) 1.6 - 2.6 mg/dL MAIN LAB Specimen Blood Performing Organization Address City/[facility]/Zipcode Phone Number MAIN LAB [address] [place] [address] * POC GLUCOSE (09/08/2018 3:35 PM CDT) Glucose, POC 148 (H) 70 - 100 MG/DL [facility] MAIN LAB Performing Organization Address City/State/Zipcode Phone Number MAIN LAB [address] [place] [address] * POTASSIUM (09/08/2018 2:23 PM CDT) Potassium 3.7 3.5 - 5.1 MMOL/L MAIN LAB Specimen Blood Performing Organization Address City/[facility] Phone Number [facility] [address] [place] [address] * O2 SATURATION, MIXED VENOUS (09/08/2018 2:23 PM CDT) [id number] Venous 58.8 % MAIN LAB Specimen Blood Performing Organization Address City/[facility] Phone Number [facility] LAB [address] [place] [address] * POC GLUCOSE (09/08/2018 2:20 PM CDT) Glucose, POC 151 (H) 70 - 100 MG/DL [facility] MAIN LAB Performing Organization Address City/[facility]/Zipcode Phone Number MAIN LAB [address] [place] [address] * POC IONIZED CALCIUM (09/08/2018 1:16 PM CDT) Ionized Calcium-POC 1.17 1.0 - 1.3 MMOL/L MAIN LAB Performing Organization Address City/[facility] Phone Number MAIN LAB [address] [place] [address] * POC SODIUM (09/08/2018 1:16 PM CDT) Sodium-POC 143 137 - 147 MMOL/L MAIN LAB Performing Organization Address City/[facility]/Zipcode Phone Number MAIN LAB [address] [place] [address] * POC POTASSIUM (09/08/2018 1:16 PM CDT) Potassium-POC 3.5 3.5 - 5.1 MMOL/L MAIN LAB Performing Organization Address City/[facility]/Zipcode Phone Number MAIN LAB [address] [place] [address] * POC HEMATOCRIT (09/08/2018 1:16 PM CDT) Hemoglobin POC 10.2 (L) 12.0 - 15.0 GM/DL [facility] MAIN LAB Hematocrit POC 30.0 (L) 36 - 45 % [facility] MAIN LAB Performing Organization Address [facility] Phone Number MAIN LAB [address] [place] [phone] * POC BLOOD GAS ARTERIAL (09/08/2018 1:16 PM CDT) PH-ART-POC 7.43 7.35 - 7.45 [facility] MAIN LAB [id number] 41 35 - 45 MMHG [facility] MAIN LAB PO2-ART-POC 143 (H) 80 - 100 MMHG [facility] MAIN LAB Base Ex-ART-POC 3.0 MMOL/L MAIN LAB O2 Sat-ART-POC 99.0 95 - 99 % MAIN LAB Kywvdfzdgtd-EQR-BDI 27.0 21 - 28 MMOL/L [facility] MAIN LAB Performing Organization Address [facility] Phone Number MAIN LAB [address] [place] [address] * MAGNESIUM (09/08/2018 1:15 PM CDT) Magnesium 2.3 1.6 - 2.6 mg/dL MAIN LAB Specimen Blood Performing Organization Address [facility] Phone Number MAIN LAB [address] [place] [address] * PTT (APTT) (09/08/2018 1:15 PM CDT) APTT 24.9Comment: NOTE NEW 20.0 - 36.0 SEC MAIN LAB REFERENCE RANGES Specimen Blood Performing Organization Address [facility] Phone Number MAIN LAB [address] [place] [phone] * PROTIME INR (PT) (09/08/2018 1:15 PM CDT) INR 1.2 0.8 - 1.2 MAIN LAB Specimen Blood Performing Organization Address [facility] Phone Number MAIN LAB [address] [place] [address] * BASIC METABOLIC PANEL (09/08/2018 1:15 PM CDT) Sodium 140 137 - 147 MMOL/L MAIN LAB Potassium 3.5 3.5 - 5.1 MMOL/L MAIN LAB Chloride 107 98 - 110 MMOL/L [facility] MAIN LAB CO2 25 21 - 30 MMOL/L [facility] MAIN LAB Anion Gap 8 3 - 12 [facility] MAIN LAB Glucose 158 (H) 70 - 100 MG/DL [facility] MAIN LAB Blood Urea Nitrogen 21 7 - 25 MG/DL [facility] MAIN LAB Creatinine 1.14 (H) 0.4 - 1.00 MG/DL [facility] MAIN LAB Calcium 8.7 8.5 - 10.6 MG/DL [facility] MAIN LAB eGFR Non 48 (L) >60 mL/min [facility] MAIN LAB Comment: The eGFR is not validated for use in drug dosing adjustments.Continue to use estimated creatinine clearance per dosing reference text.Please contact the Clinical Pharmacist for questions. eGFR 58 (L) >60 mL/min [facility] MAIN LAB Comment: The eGFR is not validated for use in drug dosing adjustments.Continue to use estimated creatinine clearance per dosing reference text.Please contact the Clinical Pharmacist for questions. Specimen Blood Performing Organization Address City/[facility]/Zipcode Phone Number MAIN LAB [address] [place] [address] * CBC (09/08/2018 1:15 PM CDT) White Blood Cells 10.6 4.5 - 11.0 K/UL MAIN LAB RBC 3.62 (L) 4.0 - 5.0 M/UL MAIN LAB Hemoglobin 10.9 (L) 12.0 - 15.0 GM/DL MAIN LAB Hematocrit 32.3 (L) 36 - 45 % [facility] MAIN LAB MCV 89.4 80 - 100 FL MAIN LAB MCH 30.2 26 - 34 PG MAIN LAB MCHC 33.8 32.0 - 36.0 G/DL MAIN LAB RDW 14.4 11 - 15 % MAIN LAB Platelet Count 137 (L) 150 - 400 K/UL MAIN LAB MPV 8.6 7 - 11 FL MAIN LAB Specimen Blood Performing Organization Address City/[facility]/Zipcode Phone Number MAIN LAB [address] [place] [address] * POC GLUCOSE (09/08/2018 1:13 PM CDT) Glucose, POC 160 (H) 70 - 100 MG/DL MAIN LAB Performing Organization Address City/[facility]/Zipcode Phone Number [facility] [address] [place] [address] * LINE PLCMT 1V CXR (09/08/2018 12:40 [...] artemio. Interval placement of a right IJ [place]-Darío catheter with its tip overlying the region [...] artemio. Interval placement of a right IJ [place]-Dar[place] catheter with its tip overlying the region [...] City/State/Zipcode Phone Number [facility] RAD RESULTS * POC IONIZED CALCIUM (09/08/2018 11:26 AM CDT) Ionized Calcium-POC 1.13 1.0 - 1.3 MMOL/L [facility] MAIN LAB Performing Organization Address City/[facility] Phone Number [facility] MAIN [facility] [address] [place] [address] * POC SODIUM (09/08/2018 11:26 AM CDT) Sodium-POC 143 137 - 147 MMOL/L [facility] MAIN LAB Performing Organization Address City/[facility] Phone Number [facility] MAIN [facility] [address] [place] [address] * POC POTASSIUM (09/08/2018 11:26 AM CDT) Potassium-POC 3.2 (L) 3.5 - 5.1 MMOL/L [facility] MAIN LAB Performing Organization Address City/[facility] Phone Number MAIN LAB [address] [place] [address] * POC HEMATOCRIT (09/08/2018 11:26 AM CDT) Hemoglobin POC 8.2 (L) 12.0 - 15.0 GM/DL [facility] MAIN LAB Hematocrit POC 24.0 (L) 36 - 45 % [facility] MAIN LAB Performing Organization Address City/[facility] Phone Number MAIN LAB [address] [place] [address] * POC BLOOD GAS ARTERIAL (09/08/2018 11:26 AM CDT) PH-ART-POC 7.48 (H) 7.35 - 7.45 [facility] MAIN LAB [id number]-[id number] 39 35 - 45 MMHG [facility] MAIN LAB PO2-ART-POC 277 (H) 80 - 100 MMHG [facility] MAIN LAB Base Ex-ART-POC 6.0 MMOL/L [facility] MAIN LAB O2 Sat-ART-POC 100.0 (H) 95 - 99 % [facility] MAIN LAB Laomgruhpze-KSM-IWZ 29.2 (H) 21 - 28 MMOL/L [facility] MAIN LAB Performing Organization Address City/[facility] Phone Number MAIN LAB [address] [place] [address] * POC GLUCOSE (09/08/2018 11:24 AM CDT) Glucose, POC 159 (H) 70 - 100 MG/DL [facility] MAIN LAB Performing Organization Address City/[facility] Phone Number [facility] MAIN [facility] [address] [place] [address] * POC IONIZED CALCIUM (09/08/2018 10:36 AM CDT) Ionized Calcium-POC 1.05 1.0 - 1.3 MMOL/L [facility] MAIN LAB Performing Organization Address City/[facility] Phone Number [facility] MAIN [facility] [address] [place] [address] * POC SODIUM (09/08/2018 10:36 AM CDT) Sodium-POC 142 137 - 147 MMOL/L [facility] MAIN LAB Performing Organization Address City/[facility] Phone Number MAIN LAB [address] [place] [address] * POC POTASSIUM (09/08/2018 10:36 AM CDT) Potassium-POC 3.6 3.5 - 5.1 MMOL/L MAIN LAB Performing Organization Address [facility] Phone Number MAIN LAB [address] [place] [address] * POC HEMATOCRIT (09/08/2018 10:36 AM CDT) Hemoglobin POC 8.2 (L) 12.0 - 15.0 GM/DL MAIN LAB Hematocrit POC 24.0 (L) 36 - 45 % MAIN LAB Performing Organization Address [facility] Phone Number [facility] MAIN LAB [address] [place] [address] * POC BLOOD GAS ARTERIAL (09/08/2018 10:36 AM CDT) PH-ART-POC 7.47 (H) 7.35 - 7.45 [facility] MAIN LAB [id number] 45 35 - 45 MMHG [facility] MAIN LAB PO2-ART-POC 437 (H) 80 - 100 MMHG [facility] MAIN LAB Base Ex-ART-POC 9.0 MMOL/L [facility] MAIN LAB O2 Sat-ART-POC 100.0 (H) 95 - 99 % [facility] MAIN LAB Aeaxsdietlt-YWO-TMT 32.8 (H) 21 - 28 MMOL/L [facility] MAIN LAB Performing Organization Address [facility] Phone Number MAIN LAB [address] [place] [address] * POC GLUCOSE (09/08/2018 10:34 AM CDT) Glucose, POC 154 (H) 70 - 100 MG/DL [facility] MAIN LAB Performing Organization Address City/[facility] Phone Number [facility] MAIN [facility] [address] [place] [address] * POC IONIZED CALCIUM (09/08/2018 10:07 AM CDT) Ionized Calcium-POC 1.03 1.0 - 1.3 MMOL/L [facility] MAIN LAB Performing Organization Address City/[facility] Phone Number [facility] MAIN [facility] [address] [place] [address] * POC SODIUM (09/08/2018 10:07 AM CDT) Sodium-POC 142 137 - 147 MMOL/L [facility] MAIN LAB Performing Organization Address City/[facility] Phone Number MAIN LAB [address] [place] [address] * POC POTASSIUM (09/08/2018 10:07 AM CDT) Potassium-POC 3.7 3.5 - 5.1 MMOL/L [facility] MAIN LAB Performing Organization Address [facility] Phone Number MAIN LAB [address] [place] [address] * POC HEMATOCRIT (09/08/2018 10:07 AM CDT) Hemoglobin POC 8.8 (L) 12.0 - 15.0 GM/DL MAIN LAB Hematocrit POC 26.0 (L) 36 - 45 % [facility] MAIN LAB Performing Organization Address [facility] Phone Number [facility] MAIN LAB [address] [place] [address] * POC BLOOD GAS ARTERIAL (09/08/2018 10:07 AM CDT) PH-ART-POC 7.54 (H) 7.35 - 7.45 [facility] MAIN LAB [id number] 38 35 - 45 MMHG [facility] MAIN LAB PO2-ART-POC 363 (H) 80 - 100 MMHG [facility] MAIN LAB Base Ex-ART-POC 9.0 MMOL/L [facility] MAIN LAB O2 Sat-ART-POC 100.0 (H) 95 - 99 % [facility] MAIN LAB Neheajxcfbr-NOQ-HPR 32.0 (H) 21 - 28 MMOL/L [facility] MAIN LAB Performing Organization Address [facility] Phone Number MAIN LAB [address] [place] [address] * POC GLUCOSE (09/08/2018 10:05 AM CDT) Glucose, POC 135 (H) 70 - 100 MG/DL [facility] MAIN LAB Performing Organization Address [facility] Phone Number [facility] MAIN LAB [address] [place] [phone] * POC IONIZED CALCIUM (09/08/2018 9:39 AM CDT) Ionized Calcium-POC 1.01 1.0 - 1.3 MMOL/L [facility] MAIN LAB Performing Organization Address [facility] Phone Number [facility] MAIN LAB [address] [place] [address] * POC SODIUM (09/08/2018 9:39 AM CDT) Sodium-POC 141 137 - 147 MMOL/L [facility] MAIN LAB Performing Organization Address [facility] Phone Number MAIN LAB [address] [place] [address] * POC POTASSIUM (09/08/2018 9:39 AM CDT) Potassium-POC 3.6 3.5 - 5.1 MMOL/L [facility] MAIN LAB Performing Organization Address [facility] Phone Number MAIN LAB [address] [place] [address] * POC HEMATOCRIT (09/08/2018 9:39 AM CDT) Hemoglobin POC 8.5 (L) 12.0 - 15.0 GM/DL [facility] MAIN LAB Hematocrit POC 25.0 (L) 36 - 45 % [facility] MAIN LAB Performing Organization Address [facility] Phone Number MAIN LAB [address] [place] [phone] * POC BLOOD GAS ARTERIAL (09/08/2018 9:39 AM CDT) PH-ART-POC 7.56 (H) 7.35 - 7.45 [facility] MAIN LAB [id number] 37 35 - 45 MMHG [facility] MAIN LAB PO2-ART-POC 423 (H) 80 - 100 MMHG [facility] MAIN LAB Base Ex-ART-POC 11.0 MMOL/L [facility] MAIN LAB O2 Sat-ART-POC 100.0 (H) 95 - 99 % [facility] MAIN LAB Rcpiwfpkpuj-QTN-EPB 33.4 (H) 21 - 28 MMOL/L [facility] MAIN LAB Performing Organization Address [facility]/Zipcode Phone Number [facility] MAIN LAB [address] [place] [address] * POC GLUCOSE (09/08/2018 9:37 AM CDT) Glucose, POC 116 (H) 70 - 100 MG/DL [facility] MAIN LAB Performing Organization Address City/[facility] Phone Number [facility] MAIN [facility] [address] [place] [address] * POC GLUCOSE (09/08/2018 9:04 AM CDT) Glucose, POC 111 (H) 70 - 100 MG/DL [facility] MAIN LAB Performing Organization Address City/[facility] Phone Number MAIN LAB [address] [place] [address] * POC IONIZED CALCIUM (09/08/2018 8:41 AM CDT) Ionized Calcium-POC 1.16 1.0 - 1.3 MMOL/L [facility] MAIN LAB Performing Organization Address City/[facility] Phone Number MAIN LAB [address] [place] [address] * POC SODIUM (09/08/2018 8:41 AM CDT) Sodium-POC 142 137 - 147 MMOL/L [facility] MAIN LAB Performing Organization Address City/[facility] Phone Number MAIN LAB [address] [place] [address] * POC POTASSIUM (09/08/2018 8:41 AM CDT) Potassium-POC 3.2 (L) 3.5 - 5.1 MMOL/L [facility] MAIN LAB Performing Organization Address City/[facility] Phone Number MAIN LAB [address] [place] [address] * POC HEMATOCRIT (09/08/2018 8:41 AM CDT) Hemoglobin POC 10.2 (L) 12.0 - 15.0 GM/DL [facility] MAIN LAB Hematocrit POC 30.0 (L) 36 - 45 % [facility] MAIN LAB Performing Organization Address City/[facility] Phone Number MAIN LAB [address] [place] [address] * POC BLOOD GAS ARTERIAL (09/08/2018 8:41 AM CDT) PH-ART-POC 7.40 7.35 - 7.45 [facility] MAIN LAB [id number]-[id number] 48 (H) 35 - 45 MMHG [facility] MAIN LAB PO2-ART-POC 103 (H) 80 - 100 MMHG [facility] MAIN LAB Base Ex-ART-POC 5.0 MMOL/L MAIN LAB O2 Sat-ART-POC 98.0 95 - 99 % MAIN LAB Bqwjknirqci-RIQ-OXN 29.6 (H) 21 - 28 MMOL/L [facility] MAIN LAB Performing Organization Address [facility] Phone Number MAIN LAB [address] [place] [address] * POC GLUCOSE (09/08/2018 8:38 AM CDT) Glucose, POC 104 (H) 70 - 100 MG/DL MAIN LAB Performing Organization Address [facility] Phone Number MAIN LAB [address] [place] [address] * BLOOD TYPE CONFIRMATION - ORDER ONLY IF REQUESTED BY LAB (09/08/2018 7:25 AM CDT) ABO/RH(D) A NEG MAIN LAB Specimen Blood Performing Organization Address [facility] Phone Number MAIN LAB [address] [place] [address] in this encounter Visit Diagnoses Diagnosis S/P mitral valve repair - Primary Other postprocedural status Mitral valve insufficiency, unspecified etiology Atrial fibrillation, unspecified type ([facility]) Encounter for blood typing Acute on chronic diastolic CHF (congestive heart failure), NYHA class 3 ([facility]) Acute on chronic diastolic heart failure Persistent atrial fibrillation (HCC) Atrial fibrillation Chronic diastolic heart failure (HCC) Chronic diastolic heart failure Hypertension, unspecified type Morbid obesity (HCC) Morbid obesity S/P Maze operation for atrial fibrillation Other postprocedural status H/O tricuspid valve annuloplasty Personal history of surgery to heart and great vessels, presenting hazards to health Acute on chronic respiratory failure with hypoxia (HCC) Non-rheumatic mitral regurgitation Mitral valve disorders Acute respiratory failure with hypoxia (HCC) Acute respiratory failure Hyperlipemia Other and unspecified hyperlipidemia in this encounter Administered Medications Action Date Dose Rate Site Medication Order MAR Action acetaminophen (TYLENOL) rectal suppository 650 mg 650 mg, Rectal, EVERY 6 HOURS PRN, Starting Tue09/13/18 at 0000, Until Tue09/18/18 at 1309, Pain non-opioid: may be used alone or in combination with opioid analgesia, Temp > 38.5 C, Start POD #5, 6 hours after last scheduled acetaminophen dose. ACETAMINOPHEN DOSE NOT TO EXCEED 4GM DAILY., 09/12/2018 7:23 AM CDT 1,000 mg acetaminophen (TYLENOL) tablet 1,000 mg Given 1,000 mg, Oral, EVERY 6 HOURS, 16 doses, First dose on Tue09/08/18 at 1230, Last dose on Tue09/12/18 at 0930, Acetaminophen dose not to exceed 4 gm daily, 1,000 mg Given 09/11/2018 9:18 PM CDT 1,000 mg Given 09/11/2018 4:06 PM CDT 09/18/2018 9:28 AM CDT 650 mg acetaminophen (TYLENOL) tablet 650 mg Given 650 mg, Oral, EVERY 6 HOURS PRN, Starting Tue09/13/18 at 0000, Until Tue09/18/18 at 1309, Pain non-opioid: may be used alone or in combination with opioid analgesia, Temp > 38.5 C, Start POD #5, 6 hours after last scheduled acetaminophen dose. ACETAMINOPHEN DOSE NOT TO EXCEED 4GM DAILY., 650 mg Given 09/17/2018 4:34 PM CDT 650 mg Given 09/17/2018 8:44 AM CDT 09/08/2018 1:35 PM CDT 250 mL albumin 5% injection 250 mL Given - New 250 mL, 250 mL, Intravenous, ONCE, 1 Bag dose, Tue09/08/18 at 1345 09/10/2018 8:11 AM CDT 25 g albumin 25% injection 25 g Given - New 100 mL, 25 g, Intravenous, EVERY 6 Bag HOURS, 3 doses, First dose on 09/09/18 at 1945, Last dose on Tue09/10/18 at 0600 25 g Given - New Bag 09/09/2018 11:46 PM CDT 25 g Given - New Bag 09/09/2018 6:57 PM CDT ALBUMIN, HUMAN 5 % IV SOLP (Cabinet Override) NOW, 1 dose, Tue09/08/18 at 0800, Created by cabinet override, Created by cabinet override, albuterol (PROAIR HFA, VENTOLIN HFA, or PROVENTIL HFA) inhaler 2 puff 2 puff, Inhalation, RT EVERY 4 HOURS PRN, Starting Tue09/18/18 at 0845, Until Tue09/18/18 at 1309, RT PROTOCOL, When administered by RT, will be per RT policy., 09/17/2018 4:31 PM CDT 30 mL alum/mag hydroxide/simeth (MYLANTA, Given MAALOX PLUS) oral suspension 30 mL 30 mL, Oral, EVERY 4 HOURS PRN, Starting Tue09/08/18 at 1225, Until Tue09/18/18 at 1309, Indigestion/Heartburn, May give per NG tube, 30 mL Given 09/17/2018 8:44 AM CDT 30 mL Given 09/16/2018 7:12 PM CDT 09/08/2018 12:40 PM CDT 2 g/hr 40 mL/hr aminocaproic acid (AMICAR) 12.5 g in Dose/Rate sodium chloride 0.9% (NS) IV infusion Verify 2 g/hr (40 mL/hr), Intravenous, 250 mL, CONTINUOUS (ROTOR ASSEMBLER FROM RX), Starting Tue09/08/18 at 1230, Until Tue09/08/18 at 1829, Continuous infusion until OR bag is complete (approx 2 hours), 09/18/2018 9:28 AM CDT 10 mg amLODIPine (NORVASC) tablet 10 mg Given 10 mg, Oral, DAILY, First dose on Tue09/11/18 at 0900, Until Discontinued, NURSING: Please educate patient and document: Do not give with grapefruit juice., 10 mg Given 09/17/2018 8:44 AM CDT 10 mg Given 09/16/2018 9:23 AM CDT 09/18/2018 9:52 AM CDT 81 mg aspirin EC tablet 81 mg Given 81 mg, Oral, DAILY, First dose on Tue09/08/18 at 1230, Until Discontinued 81 mg Given 09/17/2018 8:44 AM CDT 81 mg Given 09/16/2018 9:23 AM CDT 09/18/2018 9:28 AM CDT 40 mg atorvastatin (LIPITOR) tablet 40 mg Given 40 mg, Oral, DAILY, First dose on Tue09/09/18 at 0900, Until Discontinued, Start POD #1, 40 mg Given 09/17/2018 8:44 AM CDT 40 mg Given 09/16/2018 9:23 AM CDT 09/10/2018 1:18 PM CDT 2 mg bumetanide (BUMEX) injection 2 mg Given 2 mg, Intravenous, ONCE, 1 dose, 09/10/18 at 1300, PROTECT FROM LIGHT, 09/11/2018 1:10 AM CDT 2 mg bumetanide (BUMEX) injection 2 mg Given 2 mg, Intravenous, ONCE, 1 dose, Tue09/11/18 at 0115, PROTECT FROM LIGHT, 09/11/2018 9:57 AM CDT 2 mg bumetanide (BUMEX) injection 2 mg Given 2 mg, Intravenous, ONCE, 1 dose, Tue09/11/18 at 1000, PROTECT FROM LIGHT, 09/12/2018 9:19 AM CDT 2 mg bumetanide (BUMEX) injection 2 mg Given 2 mg, Intravenous, ONCE, 1 dose, Tue09/12/18 at 0845, PROTECT FROM LIGHT, 09/12/2018 9:01 PM CDT 3.125 mg carvedilol (COREG) tablet 3.125 mg Given 3.125 mg, Oral, TWICE DAILY, First dose on Tue09/12/18 at 0945, Until Discontinued, Hold for heart rate < 60 bpm or systolic BP < 100, 3.125 mg Given 09/12/2018 9:19 AM CDT 09/18/2018 9:29 AM CDT 6.25 mg carvedilol (COREG) tablet 6.25 mg Given 6.25 mg, Oral, TWICE DAILY, First dose on Tue09/13/18 at 0900, Until Discontinued, Hold for heart rate < 60 bpm or systolic BP < 100, 6.25 mg Given 09/17/2018 10:03 PM CDT 6.25 mg Given 09/17/2018 8:44 AM CDT 09/09/2018 11:53 AM CDT 2 g ceFAZolin (ANCEF) IVP 2 g Given 2 g, Intravenous, EVERY 8 HOURS, 3 doses, First dose on Tue09/08/18 at 1930, Last dose on Tue09/09/18 at 1130, IV PUSH -- RECONSTITUTE each 1 g vial by adding 10 mL 0.9% NACL, For patients >=80 kg, 2 g Given 09/09/2018 4:02 AM CDT 2 g Given 09/08/2018 6:52 PM CDT 09/10/2018 9:26 AM CDT 500 mg chlorothiazide injection 500 mg Given 500 mg, Intravenous, ONCE, 1 dose, 09/10/18 at 0830 09/09/2018 11:54 AM CDT 4 mg dexamethasone (DECADRON) injection 4 mg Given 4 mg, Intravenous, 1 mL, Administer over 5 Minutes, ONCE, 1 dose, 09/09/18 at 1145, Administration of IV Push Dexamethasone (on Non-Critical Care Units): - Adults: Administer doses of 10 mg or less diluted in 10 mL of NS or D5W IV Push over 5 minutes. Doses greater than 10mg should be administered via Piggyback. - Pediatrics: Administer doses of 10 mg or less diluted in 5-10 mL of NS or D5W IV Push over 5 minutes. Doses greater than 10mg should be administered via Piggyback., DEXAMETHASONE SODIUM PHOSPHATE 4 MG/ML IJ SOLN (Cabinet Override) NOW, 1 dose, 09/09/18 at 1200, Created by cabinet override, Created by cabinet override, 09/08/2018 3:41 PM CDT 0.2 mcg/kg/hr 5.7 mL/hr dexmedetomidine (PRECEDEX) 400 mcg in Dose/Rate sodium chloride 0.9% (NS) 100 mL IV Change infusion 0.2-1 mcg/kg/hr 114.8 kg (5.74-28.7 mL/hr, rounded to 5.7-28.7 mL/hr) 100 mL, at 5.7-28.7 mL/hr, Intravenous, TITRATE DIRECTED , Starting Tue09/08/18 at 1345, Until 09/09/18 at 0846, -Initiate at .5 mcg/kg/hr and maintain for 30 minutes -Titrate to keep: RASS of 0 to -2 a.) Titrate infusion in increments of 0.1 mcg/kg/hour at 5 minute intervals until goal sedation level achieved or maintenance exceeds 1.0 mcg/kg/hr b.) If HR < 60 or SBP < 90 mmHg hold for 10 minutes then restart at dose reduced by 0.3 mcg/kg/min c.) Notify physician for persistent hypotension (SBP < 90 mmHg) or bradycardia (HR < 60) over 15 minutes d.) For breakthrough agitation NOTIFY PHYSICIAN and consider bolus of 1 mcg/kg over 20 min if HR and BP are acceptable. e.) Notify physician if maintenance exceeds 1 mcg/kg/hr -Taper agent continuously to lowest effective dose to achieve desired level of sedation keeping patient calm and able to participate in care. , Std conc=4mcg/ml NOTE: For weight-based dosing, use patient dosing weight. NOTE: This is a HIGH ALERT Medication., 0.3 mcg/kg/hr 8.6 mL/hr Dose/Rate Change 09/08/2018 3:09 PM CDT 0.5 mcg/kg/hr 14.4 mL/hr Given - New Bag 09/08/2018 2:45 PM CDT 09/18/2018 9:29 AM CDT 2 mg doxazosin (CARDURA) tablet 2 mg Given 2 mg, Oral, DAILY, First dose on 09/09/18 at 1330, Until Discontinued 2 mg Given 09/17/2018 8:44 AM CDT 2 mg Given 09/16/2018 9:23 AM CDT 09/08/2018 12:30 PM CDT 250 mcg FENTANYL CITRATE (PF) 50 MCG/ML IJ SOLN Given - See (Cabinet Override) OR/Proc NOW, 1 dose, 09/08/18 at 1230, Sheba, Flowsheet Linda K: cabinet override, Linda Scruggs K: cabinet override, 09/08/2018 8:23 PM CDT 50 mcg fentaNYL citrate PF (SUBLIMAZE) Given injection 25-50 mcg 25-50 mcg, Intravenous, EVERY 1 HOUR PRN, Starting 09/08/18 at 1225, Until 09/09/18 at 1834, Pain Injectable, To be given in ICU only., 25 mcg Given 09/08/2018 5:58 PM CDT 25 mcg Given 09/08/2018 4:07 PM CDT 09/09/2018 5:50 AM CDT 40 mg furosemide (LASIX) injection 40 mg Given 40 mg, Intravenous, ONCE, 1 dose, 09/09/18 at 0545, PROTECT FROM LIGHT, 09/15/2018 8:02 AM CDT 40 mg furosemide (LASIX) injection 40 mg Given 40 mg, Intravenous, TWICE DAILY, First dose on Anne Marie 09/14/18 at 0900, Until Discontinued, PROTECT FROM LIGHT, 40 mg Given 09/14/2018 4:19 PM CDT 40 mg Given 09/14/2018 8:33 AM CDT 09/13/2018 9:18 AM CDT 80 mg furosemide (LASIX) injection 80 mg Given 80 mg, Intravenous, ONCE, 1 dose, Tue09/13/18 at 0845, PROTECT FROM LIGHT, 09/18/2018 9:29 AM CDT 40 mg furosemide (LASIX) tablet 40 mg Given 40 mg, Oral, DAILY, First dose on Tue09/15/18 at 0830, Until Discontinued 40 mg Given 09/17/2018 8:44 AM CDT 40 mg Given 09/16/2018 9:23 AM CDT 09/09/2018 8:36 PM CDT 10 mg hydrALAZINE (APRESOLINE) injection 10 mg Given 10 mg, Intravenous, EVERY 6 HOURS PRN, Starting Tue09/08/18 at 1225, Until Tue09/10/18 at 0018, Systolic Blood Pressure..., >160 mmHg 10 mg Given 09/09/2018 12:32 PM CDT 09/10/2018 3:39 AM CDT 20 mg hydrALAZINE (APRESOLINE) injection 10-20 Given mg 10-20 mg, Intravenous, EVERY 6 HOURS PRN, Starting Tue09/10/18 at 0018, Until Tue09/18/18 at 1309, Systolic Blood Pressure..., >160 mmHg 10 mg Given 09/10/2018 12:47 AM CDT 09/09/2018 6:07 PM CDT 2 Units Abdomen:RLQ insulin aspart U-100 (NOVOLOG FLEXPEN) Given injection PEN 0-14 Units 0-14 Units, Subcutaneous, FIVE TIMES DAILY, First dose on Tue09/09/18 at 1700, Until Discontinued, -POC glucose 140-180mg/dL at , , administer 2 units insulin, at 21, 03* administer 0 units. -POC glucose 181-220mg/dL at , , administer 4 units insulin, at 21, 03* administer 2 units. -POC glucose 221-260mg/dL at , , administer 6 units insulin, at 21, 03* administer 4 units. -POC glucose 261-300mg/dL at , , administer 8 units insulin, at 21, 03* administer 6 units. -POC glucose 301-350mg/dL at , , administer 10 units insulin, at 21, 03* administer 8 units. -POC glucose 351-400mg/dL at , , administer 12 units insulin, at , * administer 10 units. -POC glucose >400mg/dL at , , administer 14 units insulin, at , * administer 12 units. *only if ordered 5x's daily For POCT glucose >350mg/dL give correction bolus and recheck POCT glucose in 2 hours. If POCT glucose at 2 hours >300mg/dL call physician for further orders. For patients who are not eating meals, continue to administer the appropriate correction factor. NOTE: This is a HIGH ALERT Medication., Dispense pens manually with initial order and then upon request. DO NOT uncheck "Do not dispense", 09/09/2018 7:30 AM CDT 0.5 Units/hr 0.5 mL/hr insulin regular (NOVOLIN R) 100 Units in Dose/Rate sodium chloride 0.9% (NS) 100 mL IV drip Verify (std conc) 1-32 Units/hr (1-32 mL/hr) 100 mL, at 1-32 mL/hr, Intravenous, TITRATE DIRECTED , Starting Tue09/08/18 at 1230, Until 09/09/18 at 0846, (Administration Instructions were omitted from this summary because they were too long), 0.5 Units/hr 0.5 mL/hr Dose/Rate Change 09/09/2018 12:24 AM CDT 1 Units/hr 1 mL/hr Dose/Rate Verify 09/08/2018 7:16 PM CDT 09/09/2018 7:50 AM CDT 1,000 mL LACTATED RINGERS IV SOLP (Cabinet Given - New Override) Bag NOW, 1 dose, 09/09/18 at 0800, Created by cabinet override, Created by cabinet override, 09/08/2018 7:00 AM CDT LIDOCAINE (PF) 10 MG/ML (1 %) IJ SOLN Given - See (Cabinet Override) OR/Proc NOW, 1 dose, Tue09/08/18 at 0700, Flowsheet Created by cabinet override, Created by cabinet override, 09/08/2018 1:15 PM CDT 4 g magnesium sulfate 4 g/50 mL IVPB Given - New 4 g, Intravenous, 50 mL, Administer over Bag 240 Minutes, ONCE, 1 dose, Tue09/08/18 at 1230, Give upon arrival to ICU. Check with physician prior to infusing if SCr >2 mg/dL. Do not give if ESRD patient on HD. Check Mg++ level after completion of infusion. Each 1gm delivers 8.1 mEq Magnesium., MAGNESIUM SULFATE IN WATER 4 GRAM/50 ML (8 %) IV PGBK (Cabinet Override) NOW, 1 dose, Tue09/08/18 at 0800, Created by cabinet [email or web address], Created by cabinet override, 09/08/2018 8:53 PM CDT 10 mg metoclopramide (REGLAN) injection 10 mg Given 10 mg, Intravenous, ONCE, 1 dose, Tue09/08/18 at 1930 09/10/2018 6:15 AM CDT 10 mg metoclopramide (REGLAN) injection 10 mg Given 10 mg, Intravenous, EVERY 6 HOURS PRN, Starting 09/09/18 at 1129, Until 09/17/18 at 0635, Nausea/Vomiting Injectable 10 mg Given 09/09/2018 8:52 PM CDT 10 mg Given 09/09/2018 11:56 AM CDT 09/08/2018 6:30 AM CDT 12.5 mg metoprolol tartrate (LOPRESSOR) tablet Given - See 12.5 mg OR/Proc 12.5 mg, Oral, ONCE, 1 dose, Tue Flowsheet 09/08/18 at 0645, Give PRE-OP in all heart patients and all patients taking beta uziel prior to admit. HOLD if taken in last 24 hours or SBP < 100 mmHg or HR < 60., Pre-Op 09/09/2018 9:07 AM CDT 10 mL milk of magnesia (CONC) oral suspension Given 10 mL 10 mL, Oral, DAILY PRN, Starting 09/08/18 at 1225, Until 09/18/18 at 1309, Constipation PO, May give per NG tube. 10 mL CONC=30 mL MOM, 09/09/2018 3:00 PM CDT 0.5 mcg/kg/min 17.6 mL/hr nitroGLYCERIN 50 mg/D5W 250 mL infusion Dose/Rate 0.1-3 mcg/kg/min Verify 117 kg (3.51-105.3 mL/hr, rounded to 3.5-105.3 mL/hr) 250 mL, at 3.5-105.3 mL/hr, Intravenous, TITRATE DIRECTED , Starting Tue09/08/18 at 1230, Until Tue09/12/18 at 1050, Initiate at 0.1 mcg/kg/min Titrate to: SBP >=90 and <=110 mmHg x 3 hours then 130 mmHg. NOTE: For weight-based dosing, use patient dosing weight., 0.5 mcg/kg/min 17.6 mL/hr Given - New Bag 09/09/2018 8:42 AM CDT 0.5 mcg/kg/min 17.6 mL/hr Dose/Rate Change 09/09/2018 5:58 AM CDT 09/15/2018 11:17 AM CDT 4 mg ondansetron (ZOFRAN) injection 4 mg Given 4 mg, Intravenous, EVERY 6 HOURS PRN, Starting Tue09/08/18 at 1225, Until Tue09/18/18 at 1309, Nausea/Vomiting Injectable 4 mg Given 09/14/2018 11:22 AM CDT 4 mg Given 09/13/2018 3:31 PM CDT ondansetron (ZOFRAN) tablet 4 mg 4 mg, Oral, EVERY 6 HOURS PRN, Starting Tue09/08/18 at 1225, Until Tue09/18/18 at 1309, Nausea/Vomiting PO, (May use for PO or NG), 09/09/2018 9:22 PM CDT 5 mg oxyCODONE (ROXICODONE, OXY-IR) tablet Given 5-10 mg 5-10 mg, Oral, EVERY 4 HOURS PRN, Starting Tue09/08/18 at 1225, Until Tue09/12/18 at 1050, Pain PO 5 mg Given 09/09/2018 8:52 PM CDT 10 mg Given 09/09/2018 9:07 AM CDT 09/11/2018 9:58 AM CDT 17 g polyethylene glycol 3350 (MIRALAX) Given packet 17 g 17 g (1 packet), Oral, TWICE DAILY, First dose on 09/10/18 at 2100, Until Discontinued, 8.5 GRAMS=0.5 PACKET 17 GRAMS=1 PACKET 34 GRAMS=2 PACKETS, 17 g Given 09/10/2018 8:42 PM CDT POTASSIUM CHLORIDE IN WATER 10 MEQ/50 ML IV PGBK (Cabinet Override) NOW, 1 dose, Tue09/08/18 at 0800, Created by cabinet override NOTE: This is a HIGH ALERT Medication., Created by cabinet override, 09/08/2018 9:35 PM CDT 10 mEq 50 mL/hr potassium chloride in water IVPB 10 mEq Given - New 10 mEq, Intravenous, 50 mL, Administer Bag over 60 Minutes, NEEDED, Starting Tue09/08/18 at 1225, Until Tue09/18/18 at 1309, See admin instructions, Use tablet or suspension if patient tolerating PO; use IV if not tolerating PO. It urine output <30 mL/hr or SCr >2 mg/dL, check with physician prior to giving K+ replacement. - For K+ 4.0-4.3, give potassium chloride 10 mEq IV over 1 hour* - For K+ 3.5-3.9, give potassium chloride 20 mEq IV over 2 hours* - For K+ 3.0-3.4, give potassium chloride 30 mEq IV over 3 hours* - For K+ <3, give potassium chloride 40 mEq IV over 4 hours* - *May increase rate to 20 mEq/hr if patient has central line - Check K+ 1 hour after end of each replacement dose. Follow K+ replacement orders based on result. NOTE: This is a HIGH ALERT Medication., 10 mEq 50 mL/hr Given - New Bag 09/08/2018 7:18 PM CDT 10 mEq 50 mL/hr Given - New Bag 09/08/2018 6:38 PM CDT 09/11/2018 9:23 PM CDT 40 mEq potassium chloride oral solution 20-40 Given mEq 20-40 mEq, Per NG tube, NEEDED, Starting Tue09/08/18 at 1225, Until Tue09/18/18 at 1309, Other..., See admin instructions, If urine output <30 mL/hr or SCr >2 mg/dL, check with physician prior to giving K+ replacement. - For K+ 4.0-4.3, give potassium chloride 20 mEq PO/NG x 1 dose - For K+ 3.5-3.9, give potassium chloride 40 mEq PO/NG x 1 dose - For K+ <3.5, give potassium chloride 40 mEq PO/NG every 4 hours x 2 doses - Check K+ in the AM if potassium >=3.5 and replacement given - Check K+ 4 hours after last replacement dose given if K+ <3.5, then repeat replacement orders if needed. , 09/18/2018 9:28 AM CDT 40 mEq potassium chloride SR (K-DUR) tablet Given 20-40 mEq 20-40 mEq, Oral, NEEDED, Starting Tue09/08/18 at 1225, Until 09/18/18 at 1309, Other..., See admin instructions, If urine output <30 mL/hr or SCr >2 mg/dL, check with physician prior to giving K+ replacement. - For K+ 4.0-4.3, give potassium chloride 20 mEq PO/NG x 1 dose - For K+ 3.5-3.9, give potassium chloride 40 mEq PO/NG x 1 dose - For K+ <3.5, give potassium chloride 40 mEq PO/NG every 4 hours x 2 doses - Check K+ in the AM if potassium >=3.5 and replacement given - Check K+ 4 hours after last replacement dose given if K+ <3.5, then repeat replacement orders if needed. , 40 mEq Given 09/16/2018 9:23 AM CDT 40 mEq Given 09/15/2018 9:52 AM CDT 09/14/2018 8:27 PM CDT 2 tablets senna/docusate (SENOKOT-S) tablet 2 Given tablet 2 tablet, Oral, TWICE DAILY, First dose on 09/09/18 at 0900, Until Discontinued, Start POD #1. Hold for loose stools., 2 tablets Given 09/14/2018 8:33 AM CDT 2 tablets Given 09/13/2018 9:51 PM CDT 09/08/2018 12:41 PM CDT 30 mL/hr sodium chloride 0.9 % infusion Dose/Rate 1,000 mL, Intravenous, at 30 mL/hr, Verify CONTINUOUS, Starting Tue09/08/18 at 1230, Until 09/10/18 at 1229 09/14/2018 8:31 AM CDT 100 mg traMADol (ULTRAM) tablet 50-100 mg Given 50-100 mg, Oral, EVERY 6 HOURS PRN, Starting 09/09/18 at 1129, Until 09/18/18 at 1309, Pain PO 50 mg Given 09/13/2018 8:55 PM CDT 100 mg Given 09/13/2018 3:30 PM CDT 09/16/2018 9:26 AM CDT 1 tablet triamterene-hydrochlorothiazide Given (MAXZIDE) 75-50 mg tablet 1 tablet 1 tablet, Oral, DAILY, First dose on 09/09/18 at 1000, Until Discontinued 1 tablet Given 09/15/2018 9:52 AM CDT 1 tablet Given 09/14/2018 9:00 AM CDT 09/13/2018 9:51 PM CDT 2 mg warfarin (COUMADIN) tablet 2 mg Given 2 mg, Oral, AT BEDTIME DAILY, First dose on 09/13/18 at 2100, Until Discontinued, NURSING: Provide patient with warfarin education leaflet and video. Do not give with cranberry juice. NOTE: This is a HIGH ALERT Medication., 09/17/2018 10:03 PM CDT 3 mg warfarin (COUMADIN) tablet 3 mg Given 3 mg, Oral, AT BEDTIME DAILY, First dose on Anne Marie 09/14/18 at 2100, Until Discontinued, NURSING: Provide patient with warfarin education leaflet and video. Do not give with cranberry juice. NOTE: This is a HIGH ALERT Medication., 3 mg Given 09/16/2018 8:55 PM CDT 3 mg Given 09/15/2018 9:07 PM CDT 09/10/2018 8:42 PM CDT 5 mg warfarin (COUMADIN) tablet 5 mg Given 5 mg, Oral, AT BEDTIME DAILY, First dose on 09/09/18 at 2100, Until Discontinued, NURSING: Provide patient with warfarin education leaflet and video. Do not give with cranberry juice. NOTE: This is a HIGH ALERT Medication., 5 mg Given 09/09/2018 8:52 PM CDT 09/10/2018 9:26 AM CDT 20 mL WATER FOR INJECTION, STERILE IJ SOLN Given (Cabinet Override) NOW, 1 dose, 09/10/18 at 0900, Created by cabinet override, Created by cabinet override, in this encounter
--- OUTSIDE RECORDS SUMMARY | 2018-12-07 13:34 | XMS REPORT | Encounter Summary ---
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 as of this encounter Plan of Treatment Order Schedule Name Priority Associated Diagnoses ONE TIME for 1 Occurrences starting 09/08/2018 until 09/08/2018 ECG 12-LEAD STAT as of this encounter Procedures Comments Procedure Name Priority Date/Time Associated Diagnosis ECG-SCAN 10/08/2018 3:30 PM STOCK ANALYST TELEMETRY STRIPS-SCAN 09/21/2018 1:15 PM CDT PROCEDURE [...] * CHEST 2 VIEWS (10/30/2018 10:08 AM STOCK ANALYST) Impressions Performed At Stable cardiomegaly without CHF [...] Interface, Radiant Results - 10/30/2018 11:47 AM STOCK ANALYST CHEST 2 VIEWS Clinical Indication: Female, 68 [...] RAD RESULTS * ECG-SCAN (10/08/2018 3:30 PM STOCK ANALYST) Narrative Performed At Ordered by an unspecified [...] LAB Anion Gap 7 3 - 12 MAIN LAB Glucose 98 70 - 100 MG/DL MAIN LAB Blood Urea Nitrogen 34 (H) 7 - 25 MG/DL MAIN LAB Creatinine 1.33 (H) 0.4 - 1.00 MG/DL MAIN LAB Calcium 9.3 8.5 - 10.6 MG/DL MAIN LAB eGFR Non 40 (L) >60 mL/min MAIN LAB Comment: The [...] for questions. Specimen Blood Performing Organization Address City/[facility]/Zipcode Phone Number MAIN LAB [address] [place] [address] * CBC (09/18/2018 3:54 AM CDT) White Blood Cells 9.0 4.5 - 11.0 K/UL MAIN LAB RBC 2.95 (L) 4.0 - 5.0 M/UL MAIN LAB Hemoglobin 8.6 (L) 12.0 - 15.0 GM/DL MAIN LAB Hematocrit 26.1 (L) 36 - 45 % MAIN LAB MCV 88.6 80 - 100 FL MAIN LAB MCH 29.3 26 - 34 PG [facility] LAB MCHC 33.1 32.0 - 36.0 G/DL [facility] LAB RDW 14.6 11 - 15 % MAIN LAB Platelet Count 310 150 - 400 K/UL MAIN LAB MPV 7.7 7 - 11 FL MAIN LAB Specimen Blood Performing Organization Address City/[facility]/Zipcode Phone Number MAIN LAB [address] [place] [address] * PROTIME INR (PT) (09/18/2018 3:54 AM CDT) INR 2.2 (H) 0.8 - 1.2 MAIN LAB Specimen Blood Performing Organization Address City/[facility]/Zipcode Phone Number MAIN LAB [address] [place] [address] * BASIC METABOLIC PANEL (09/17/2018 4:36 AM CDT) Sodium 133 (L) 137 - 147 MMOL/L KU MAIN LAB Potassium 4.2 3.5 - 5.1 MMOL/L MAIN LAB Chloride 94 (L) 98 - 110 MMOL/L K[facility] MAIN LAB CO2 31 (H) 21 - 30 MMOL/L [facility] MAIN LAB Anion Gap 8 3 - 12 K[facility] MAIN LAB Glucose 103 (H) 70 - 100 MG/DL [facility] MAIN LAB Blood Urea Nitrogen 36 (H) 7 - 25 MG/DL KU MAIN [...] Blood Performing Organization Address City/State/Zipcode Phone Number [facility] [address] [place] [address] * CBC (09/17/2018 4:36 AM CDT) White Blood Cells 7.8 4.5 - 11.0 K/UL MAIN LAB RBC 2.99 (L) 4.0 - 5.0 M/UL [facility] LAB Hemoglobin 8.9 (L) 12.0 - 15.0 GM/DL [facility] LAB Hematocrit 26.8 (L) 36 - 45 % MAIN LAB MCV 89.8 80 - 100 FL MAIN LAB MCH 29.7 26 - 34 PG [facility] LAB MCHC 33.0 32.0 - 36.0 G/DL [facility] LAB RDW 14.8 11 - 15 % MAIN LAB Platelet Count 292 150 - 400 K/UL MAIN LAB MPV 7.6 7 - 11 FL [facility] LAB Specimen Blood Performing Organization Address City/[facility]/Zipcode Phone Number [facility] [address] [place] [address] * PROTIME INR (PT) (09/17/2018 4:36 AM CDT) INR 1.9 (H) 0.8 - 1.2 KU MAIN LAB Specimen Blood Performing Organization Address City/[facility]/Zipcode Phone Number MAIN LAB [address] [place] [address] * BASIC METABOLIC PANEL (09/16/2018 3:51 AM [...] MG/DL [facility] MAIN LAB Blood Urea Nitrogen 40 (H) 7 - 25 MG/DL [facility] MAIN LAB Creatinine 1.42 (H) 0.4 - 1.00 MG/DL KU MAIN [...] for questions. Specimen Blood Performing Organization Address City/[facility]/Zipcode Phone Number MAIN LAB [address] [place] [address] * CBC (09/16/2018 3:51 AM CDT) White [...] MAIN LAB Specimen Blood Performing Organization Address City/[facility]/Zipcode Phone Number MAIN LAB [address] [place] [address] * PROTIME INR (PT) (09/16/2018 3:51 AM CDT) INR 1.8 (H) 0.8 - 1.2 MAIN LAB Specimen Blood Performing Organization Address [facility]/Zipcode Phone Number MAIN LAB [address] [place] [address] * CHEST SINGLE VIEW (09/15/2018 6:09 AM [...] on 09/15/2018 12:24 PM. Dictated by Henny Wilknis MD on 09/15/2018 8:17 AM. Narrative Performed [...] on 09/15/2018 8:17 AM. Performing Organization Address City/[facility]/Zipcode Phone Number RAD RESULTS * BASIC METABOLIC PANEL (09/15/2018 [...] for questions. Specimen Blood Performing Organization Address City/[facility]/Zipcode Phone Number MAIN LAB [address] [place] [address] * CBC (09/15/2018 4:07 AM CDT) White [...] LAB MPV 8.1 7 - 11 FL MAIN LAB Specimen Blood Performing Organization Address [facility] Phone Number MAIN LAB [address] [place] [address] * PROTIME INR (PT) (09/15/2018 4:07 AM CDT) INR 1.7 (H) 0.8 - 1.2 MAIN LAB Specimen Blood Performing Organization Address [facility] Phone Number MAIN LAB [address] [place] [address] * POC GLUCOSE (09/14/2018 9:08 PM CDT) Glucose, POC 133 (H) 70 - 100 MG/DL K[facility] MAIN LAB Performing Organization Address [facility] Phone Number MAIN LAB [address] [place] [address] * POC GLUCOSE (09/14/2018 11:47 AM CDT) Glucose, POC 116 (H) 70 - 100 MG/DL MAIN LAB Performing Organization Address [facility] Phone Number MAIN LAB [address] [place] [address] * CBC (09/14/2018 3:54 AM CDT) White Blood Cells 6.6 4.5 - 11.0 K/UL MAIN LAB RBC 2.85 (L) 4.0 - 5.0 M/UL K[facility] MAIN LAB Hemoglobin 8.6 (L) 12.0 - 15.0 GM/DL [facility] MAIN LAB Hematocrit 25.2 (L) 36 - 45 % [facility] MAIN LAB MCV 88.4 80 - 100 FL K[facility] MAIN LAB MCH 30.2 26 - 34 PG MAIN LAB MCHC 34.2 32.0 - 36.0 G/DL MAIN LAB RDW 14.6 11 - 15 % K[facility] MAIN LAB Platelet Count 167 150 - 400 K/UL MAIN LAB MPV 8.7 7 - 11 FL MAIN LAB Performing Organization Address City/[facility]/Zipcode Phone Number MAIN LAB [address] [place] [address] * BASIC METABOLIC PANEL (09/14/2018 3:54 AM [...] Clinical Pharmacist for questions. Performing Organization Address [facility]/Zipcode Phone Number MAIN LAB [address] [place] [address] * PROTIME INR (PT) (09/14/2018 3:54 AM CDT) INR 1.7 (H) 0.8 - 1.2 MAIN LAB Specimen Blood Performing Organization Address City/[facility]/Zipcode Phone Number MAIN LAB [address] [place] [address] * POC GLUCOSE (09/13/2018 9:00 PM CDT) Glucose, POC 124 (H) 70 - 100 MG/DL K[facility] MAIN LAB Performing Organization Address City/[facility]/Zipcode Phone Number MAIN LAB [address] [place] [address] * POC GLUCOSE (09/13/2018 8:15 AM CDT) Glucose, POC 113 (H) 70 - 100 MG/DL K[facility] MAIN LAB Performing Organization Address City/[facility]/Zipcode Phone Number [facility] MAIN LAB [address] [place] [address] * CHEST 2 VIEWS (09/13/2018 6:34 AM [...] on 09/13/2018 11:36 AM. Performing Organization Address City/[facility] Phone Number K[facility] RAD RESULTS * PROTIME INR (PT) (09/13/2018 4:45 AM CDT) INR 2.0 (H) 0.8 - 1.2 MAIN LAB Specimen Blood Performing Organization Address [facility] Phone Number [facility] [address] [place] [address] * BASIC METABOLIC PANEL (09/13/2018 4:45 AM [...] for questions. Specimen Blood Performing Organization Address [facility] Phone Number [facility] [address] [place] [address] * CBC (09/13/2018 4:45 AM CDT) White [...] 15 % KU MAIN LAB Platelet Count 163 150 - 400 K/UL K[facility] MAIN LAB MPV 8.6 7 - 11 FL KU MAIN LAB Specimen Blood Performing Organization Address City/[facility] Phone Number [facility] MAIN LAB [address] [place] [address] * POC GLUCOSE (09/12/2018 9:18 PM CDT) Glucose, POC 150 (H) 70 - 100 MG/DL [facility] MAIN LAB Performing Organization Address [facility] Phone Number [facility] MAIN LAB [address] [place] [address] * POC GLUCOSE (09/12/2018 5:23 PM CDT) Glucose, POC 105 (H) 70 - 100 MG/DL [facility] MAIN LAB Performing Organization Address [facility] Phone Number [facility] MAIN LAB [address] [place] [address] * POC GLUCOSE (09/12/2018 12:08 PM CDT) Glucose, POC 91 70 - 100 MG/DL [facility] MAIN LAB Performing Organization Address [facility] Phone Number [facility] MAIN LAB [address] [place] [address] * POC GLUCOSE (09/12/2018 8:43 AM CDT) Glucose, POC 99 70 - 100 MG/DL [facility] MAIN LAB Performing Organization Address [facility] Phone Number [facility] MAIN LAB [address] [place] [address] * CHEST SINGLE VIEW (09/12/2018 6:19 AM [...] on 09/12/2018 8:15 AM. Performing Organization Address [facility] Phone Number RAD RESULTS * POC GLUCOSE (09/12/2018 3:44 AM CDT) Glucose, POC 94 70 - 100 MG/DL MAIN LAB Performing Organization Address [facility] Phone Number MAIN LAB [address] [place] [address] * PROTIME INR (PT) (09/12/2018 3:30 AM CDT) INR 2.9 (H) 0.8 - 1.2 KU MAIN LAB Specimen Blood Performing Organization Address [facility] Phone Number MAIN LAB [address] [place] [address] * MAGNESIUM (09/12/2018 3:30 AM CDT) Magnesium 2.1 1.6 - 2.6 mg/dL MAIN LAB Specimen Blood Performing Organization Address [facility] Phone Number MAIN LAB [address] [place] [address] * BASIC METABOLIC PANEL (09/12/2018 3:30 AM [...] for questions. Specimen Blood Performing Organization Address City/[facility]/Zipcode Phone Number MAIN LAB [address] [place] [address] * CBC (09/12/2018 3:30 AM CDT) White Blood Cells 7.6 4.5 - 11.0 K/UL KU MAIN LAB RBC 2.94 (L) 4.0 - 5.0 M/UL K[facility] MAIN LAB Hemoglobin 9.0 (L) 12.0 - 15.0 GM/DL K[facility] MAIN LAB Hematocrit 26.7 (L) 36 - 45 % K[facility] MAIN LAB MCV 90.8 80 - 100 FL MAIN LAB MCH 30.4 26 - 34 PG MAIN LAB MCHC 33.5 32.0 - 36.0 G/DL MAIN LAB RDW 15.1 (H) 11 - 15 % KU MAIN LAB Platelet Count 131 (L) 150 - 400 K/UL MAIN LAB MPV 8.7 7 - 11 FL MAIN LAB Specimen Blood Performing Organization Address City/[facility]/Zipcode Phone Number MAIN LAB [address] [place] [address] * POC GLUCOSE (09/11/2018 9:18 PM CDT) Glucose, POC 132 (H) 70 - 100 MG/DL MAIN LAB Performing Organization Address City/[facility]/Zipcode Phone Number MAIN LAB [address] [place] [address] * POC GLUCOSE (09/11/2018 4:12 PM CDT) Glucose, POC 99 70 - 100 MG/DL [facility] MAIN LAB Performing Organization Address [facility] Phone Number MAIN LAB [address] [place] [address] * PHOSPHORUS (09/11/2018 4:10 PM CDT) Phosphorus 3.4Comment: NOTE NEW REFERENCE 2.0 - 4.5 MG/DL KU MAIN LAB RANGES Specimen Blood Performing Organization Address [facility] Phone Number MAIN LAB [address] [place] [phone] * MAGNESIUM (09/11/2018 4:10 PM CDT) Magnesium 2.1 1.6 - 2.6 mg/dL KU MAIN LAB Specimen Blood Performing Organization Address [facility] Phone Number MAIN LAB [address] [place] [phone] * BASIC METABOLIC PANEL (09/11/2018 4:10 PM CDT) Sodium 135 (L) 137 - 147 MMOL/L KU MAIN LAB Potassium 3.8 3.5 - 5.1 MMOL/L K[facility] MAIN LAB Chloride 96 (L) 98 - 110 MMOL/L K[facility] MAIN LAB CO2 31 (H) 21 - 30 MMOL/L KU MAIN LAB Anion Gap 8 3 - 12 KU MAIN LAB Glucose 99 70 - 100 MG/DL K[facility] MAIN LAB Blood Urea Nitrogen 41 (H) 7 - 25 MG/DL K[facility] MAIN LAB Creatinine 1.52 (H) 0.4 - [...] for questions. Specimen Blood Performing Organization Address [facility] Phone Number MAIN LAB [address] [place] [phone] * POC GLUCOSE (09/11/2018 12:12 PM CDT) Glucose, POC 105 (H) 70 - 100 MG/DL K[facility] MAIN LAB Performing Organization Address [facility] Phone Number [facility] MAIN LAB [address] [place] [address] * POC GLUCOSE (09/11/2018 8:47 AM CDT) Glucose, POC 102 (H) 70 - 100 MG/DL K[facility] MAIN LAB Performing Organization Address [facility] Phone Number [facility] MAIN LAB [address] [place] [address] * CHEST SINGLE VIEW (09/11/2018 4:37 AM [...] on 09/11/2018 10:30 AM. Performing Organization Address [facility] Phone Number RAD RESULTS * POC GLUCOSE (09/11/2018 3:23 AM CDT) Glucose, POC 104 (H) 70 - 100 MG/DL MAIN LAB Performing Organization Address [facility] Phone Number MAIN LAB [address] [place] [phone] * PROTIME INR (PT) (09/11/2018 3:20 AM CDT) INR 2.2 (H) 0.8 - 1.2 MAIN LAB Specimen Blood Performing Organization Address [facility] Phone Number MAIN LAB [address] [place] [address] * BASIC METABOLIC PANEL (09/11/2018 3:20 AM CDT) Sodium 135 (L) 137 - 147 MMOL/L KU MAIN LAB Potassium 4.1 3.5 - 5.1 MMOL/L MAIN LAB Chloride 100 98 - 110 MMOL/L K[facility] MAIN LAB CO2 26 21 - 30 MMOL/L K[facility] MAIN LAB Anion Gap 9 3 - 12 KU MAIN LAB Glucose 104 (H) 70 - 100 MG/DL K[facility] MAIN LAB Blood Urea Nitrogen 38 (H) 7 - 25 MG/DL [facility] MAIN LAB Creatinine 1.69 (H) 0.4 - 1.00 MG/DL MAIN LAB Calcium 10.3 8.5 - 10.6 MG/DL MAIN LAB eGFR Non 30 (L) >60 [...] for questions. Specimen Blood Performing Organization Address [facility] Phone Number MAIN LAB [address] [place] [address] * CBC (09/11/2018 3:20 AM CDT) White Blood Cells 11.9 (H) 4.5 - 11.0 K/UL MAIN LAB RBC 3.09 (L) 4.0 - 5.0 M/UL K[facility] MAIN LAB Hemoglobin 9.3 (L) 12.0 - 15.0 GM/DL MAIN LAB Hematocrit 27.8 (L) 36 - 45 % K[facility] MAIN LAB MCV 90.0 80 - 100 FL KU MAIN LAB MCH 30.2 26 - 34 PG K[facility] MAIN LAB MCHC 33.6 32.0 - 36.0 G/DL MAIN LAB RDW 15.4 (H) 11 - 15 % MAIN LAB Platelet Count 122 (L) 150 - 400 K/UL MAIN LAB MPV 9.2 7 - 11 FL MAIN LAB Specimen Blood Performing Organization Address City/[facility] Phone Number MAIN LAB [address] [place] [address] * POC GLUCOSE (09/10/2018 8:48 PM CDT) Glucose, POC 122 (H) 70 - 100 MG/DL [facility] MAIN LAB Performing Organization Address City/[facility] Phone Number MAIN LAB [address] [place] [address] * POC GLUCOSE (09/10/2018 5:22 PM CDT) Glucose, POC 119 (H) 70 - 100 MG/DL MAIN LAB Performing Organization Address [facility] Phone Number MAIN LAB [address] [place] [address] * MAGNESIUM (09/10/2018 5:20 PM CDT) Magnesium 2.5 1.6 - 2.6 mg/dL MAIN LAB Specimen Blood Performing Organization Address [facility] Phone Number MAIN LAB [address] [place] [address] * BASIC METABOLIC PANEL (09/10/2018 5:20 PM CDT) Sodium 135 (L) 137 - 147 MMOL/L KU MAIN LAB Potassium 4.3 3.5 - 5.1 MMOL/L MAIN LAB Chloride 101 98 - 110 MMOL/L MAIN LAB CO2 26 21 - 30 MMOL/L K[facility] MAIN LAB Anion Gap 8 3 - 12 MAIN LAB Glucose 114 (H) 70 - [...] for questions. Specimen Blood Performing Organization Address City/[facility]/Zipcode Phone Number [facility] [address] [place] [address] * POC GLUCOSE (09/10/2018 12:12 PM CDT) Glucose, POC 120 (H) 70 - 100 MG/DL [facility] Performing Organization Address City/[facility] Phone Number [facility] [address] [place] [address] * BASIC METABOLIC PANEL (09/10/2018 12:10 PM [...] for questions. Specimen Blood Performing Organization Address [facility] Phone Number [facility] MAIN [facility] [address] [place] [address] * POC GLUCOSE (09/10/2018 8:08 AM CDT) Glucose, POC 120 (H) 70 - 100 MG/DL [facility] MAIN LAB Performing Organization Address [facility] Phone Number [facility] MAIN LAB [address] [place] [address] * CHEST SINGLE VIEW (09/10/2018 4:15 AM [...] on 09/10/2018 10:54 AM. Performing Organization Address [facility] Phone Number KU RAD RESULTS * POC GLUCOSE (09/10/2018 3:02 AM CDT) Glucose, POC 152 (H) 70 - 100 MG/DL [facility] MAIN LAB Performing Organization Address [facility] Phone Number MAIN LAB [address] [place] [address] * MAGNESIUM (09/10/2018 1:50 AM CDT) Magnesium 2.3 1.6 - 2.6 mg/dL K[facility] MAIN LAB Performing Organization Address [facility] Phone Number MAIN LAB [address] [place] [address] * PROTIME INR (PT) (09/10/2018 1:50 AM CDT) INR 1.3 (H) 0.8 - 1.2 K[facility] MAIN LAB Specimen Blood Performing Organization Address [facility] Phone Number MAIN LAB [address] [place] [address] * BASIC METABOLIC PANEL (09/10/2018 1:50 AM [...] for questions. Specimen Blood Performing Organization Address [facility] Phone Number MAIN LAB [address] [place] [address] * CBC (09/10/2018 1:50 AM CDT) White Blood Cells 12.5 (H) 4.5 - 11.0 K/UL MAIN LAB RBC 3.05 (L) 4.0 - 5.0 M/UL [facility] MAIN LAB Hemoglobin 9.3 (L) 12.0 - 15.0 GM/DL MAIN LAB Hematocrit 27.3 (L) 36 - 45 % MAIN LAB MCV 89.3 80 - 100 FL K[facility] MAIN LAB MCH 30.5 26 - 34 PG [facility] MAIN LAB MCHC 34.1 32.0 - 36.0 G/DL MAIN LAB RDW 14.8 11 - 15 % MAIN LAB Platelet Count 110 (L) 150 - 400 K/UL [facility] MAIN LAB MPV 8.9 7 - 11 FL MAIN LAB Specimen Blood Performing Organization Address City/[facility]/Zipcode Phone Number MAIN LAB [address] [place] [address] * POC GLUCOSE (09/09/2018 9:07 PM CDT) Glucose, POC 165 (H) 70 - 100 MG/DL [facility] MAIN LAB Performing Organization Address City/[facility] Phone Number MAIN LAB [address] [place] [address] * POC GLUCOSE (09/09/2018 6:05 PM CDT) Glucose, POC 152 (H) 70 - 100 MG/DL [facility] MAIN LAB Performing Organization Address [facility] Phone Number MAIN LAB [address] [place] [address] * BASIC METABOLIC PANEL (09/09/2018 3:45 PM CDT) Sodium 136 (L) 137 - 147 MMOL/L [facility] MAIN LAB Potassium 4.3 3.5 - 5.1 MMOL/L [facility] MAIN LAB Chloride 104 98 - 110 MMOL/L [facility] MAIN LAB CO2 22 21 - 30 MMOL/L [facility] MAIN LAB Anion Gap 10 3 - 12 [facility] MAIN LAB Glucose 161 (H) 70 - 100 MG/DL MAIN LAB Blood Urea Nitrogen 29 (H) 7 - 25 MG/DL MAIN LAB Creatinine 1.79 (H) 0.4 - 1.00 MG/DL MAIN LAB Calcium 9.5 8.5 - 10.6 MG/DL MAIN LAB eGFR Non 28 (L) >60 mL/min MAIN LAB Comment: The [...] Address City/State/Zipcode Phone Number [facility] MAIN LAB [address] [place] [address] * CHEST SINGLE VIEW (09/09/2018 3:35 PM [...] on 09/10/2018 7:20 AM. Performing Organization Address [facility] Phone Number [facility] RAD RESULTS * POC GLUCOSE (09/09/2018 8:56 AM CDT) Glucose, POC 124 (H) 70 - 100 MG/DL [facility] MAIN LAB Performing Organization Address [facility] Phone Number [facility] [address] [place] [address] * O2 SATURATION, MIXED VENOUS (09/09/2018 8:48 AM CDT) [id number] Venous 57.9 % [facility] MAIN LAB Specimen Blood Performing Organization Address [facility] Phone Number MAIN LAB [address] [place] [address] * POC GLUCOSE (09/09/2018 6:52 AM CDT) Glucose, POC 133 (H) 70 - 100 MG/DL [facility] MAIN LAB Performing Organization Address [facility] Phone Number MAIN LAB [address] [place] [address] * CHEST SINGLE VIEW (09/09/2018 4:56 AM [...] on 09/09/2018 10:14 AM. Performing Organization Address [facility] Phone Number RAD RESULTS * POC GLUCOSE (09/09/2018 4:21 AM CDT) Glucose, POC 136 (H) 70 - 100 MG/DL MAIN LAB Performing Organization Address [facility] Phone Number MAIN LAB [address] [place] [phone] * O2 SATURATION, MIXED VENOUS (09/09/2018 4:11 AM CDT) [id number] Venous 64.1 % MAIN LAB Specimen Blood Performing Organization Address [facility] Phone Number MAIN LAB [address] [place] [address] * BASIC METABOLIC PANEL (09/09/2018 4:11 AM [...] for questions. Specimen Blood Performing Organization Address City/[facility]/Zipcode Phone Number [facility] [address] [place] [address] * CBC (09/09/2018 4:11 AM CDT) White Blood Cells 10.5 4.5 - 11.0 K/UL [facility] RBC 3.59 (L) 4.0 - 5.0 M/UL [facility] Hemoglobin 10.9 (L) 12.0 - [...] MAIN LAB Specimen Blood Performing Organization Address City/[facility] Phone Number [facility] [address] [place] [address] * POC GLUCOSE (09/09/2018 2:04 AM CDT) Glucose, POC 127 (H) 70 - 100 MG/DL [facility] Performing Organization Address City/[facility]/Zipcode Phone Number [facility] [address] [place] [address] * POC GLUCOSE (09/09/2018 12:23 AM CDT) Glucose, POC 119 (H) 70 - 100 MG/DL [facility] Performing Organization Address [place]/[facility] Phone Number [facility] [address] [place] [address] * O2 SATURATION, MIXED VENOUS (09/09/2018 12:17 AM CDT) [id number]-Yfweu Venous 65.1 % MAIN LAB Specimen Blood Performing Organization Address City/[facility] Phone Number MAIN LAB [address] [place] [address] * POC GLUCOSE (09/08/2018 8:35 PM CDT) Glucose, POC 130 (H) 70 - 100 MG/DL [facility] Performing Organization Address City/[facility] Phone Number MAIN LAB [address] [place] [address] * POTASSIUM (09/08/2018 8:27 PM CDT) Potassium 4.0 3.5 - 5.1 MMOL/L MAIN LAB Specimen Blood Performing Organization Address [place]/[facility]y Phone Number MAIN LAB [address] [place] [address] * O2 SATURATION, MIXED VENOUS (09/08/2018 8:27 PM CDT) [id number] Venous 64.5 % MAIN LAB Specimen Blood Performing Organization Address [facility] Phone Number MAIN LAB [address] [place] [address] * BLOOD GASES, ARTERIAL (09/08/2018 6:50 PM CDT) pH-Arterial 7.40 7.35 - 7.45 MAIN LAB pCO2-Arterial 39 35 - 45 MMHG MAIN LAB pO2-Arterial 88 80 - 100 MM[facility] MAIN LAB Base Deficit-Arterial 0.5 MMOL/L MAIN LAB O2 Sat-Arterial 96.8 95 - 99 % MAIN LAB Plrqqaewxxu-RHM-Mcn 24.0 21 - 28 MMOL/L MAIN LAB Specimen Blood, arterial - Blood Performing Organization Address [facility] Phone Number MAIN LAB [address] [place] [address] * POC GLUCOSE (09/08/2018 6:49 PM CDT) Glucose, POC 131 (H) 70 - 100 MG/DL [facility] Performing Organization Address City/[facility] Phone Number MAIN LAB [address] [place] [address] * POC BLOOD GAS ARTERIAL (09/08/2018 5:41 PM CDT) PH-ART-POC 7.41 7.35 - 7.45 [facility] QTR4-HNS-VMH 40 35 - 45 MMHG [facility] PO2-ART-POC 85 80 - 100 MMHG [facility] Base Ex-ART-POC 1.0 MMOL/L [facility] O2 Sat-ART-POC 97.0 95 - 99 % [facility] Yuqktpdeire-GRF-ZIJ 25.3 21 - 28 MMOL/L [facility] Performing Organization Address City/[facility] Phone Number MAIN LAB [address] [place] [address] * POC GLUCOSE (09/08/2018 5:38 PM CDT) Glucose, POC 138 (H) 70 - 100 MG/DL [facility] Performing Organization Address City/[facility] Phone Number MAIN LAB [address] [place] [address] * POTASSIUM (09/08/2018 5:35 PM CDT) Potassium 3.7 3.5 - 5.1 MMOL/L MAIN LAB Specimen Blood Performing Organization Address City/[facility] Phone Number MAIN LAB [address] [place] [address] * MAGNESIUM (09/08/2018 5:35 PM CDT) Magnesium 2.9 (H) 1.6 - 2.6 mg/dL MAIN LAB Specimen Blood Performing Organization Address City/[facility] Phone Number MAIN LAB [address] [place] [address] * POC GLUCOSE (09/08/2018 3:35 PM CDT) Glucose, POC 148 (H) 70 - 100 MG/DL MAIN LAB Performing Organization Address City/[facility] Phone Number MAIN LAB [address] [place] [address] * POTASSIUM (09/08/2018 2:23 PM CDT) Potassium 3.7 3.5 - 5.1 MMOL/L MAIN LAB Specimen Blood Performing Organization Address City/[facility] Phone Number MAIN LAB [address] [place] [address] * O2 SATURATION, MIXED VENOUS (09/08/2018 2:23 PM CDT) H9Yod-Hafld Venous 58.8 % [facility] Specimen Blood Performing Organization Address City/[facility] Phone Number [facility] [address] [place] [address] * POC GLUCOSE (09/08/2018 2:20 PM CDT) Glucose, POC 151 (H) 70 - 100 MG/DL [facility] Performing Organization Address [facility] Phone Number [facility] [address] [place] [address] * POC IONIZED CALCIUM (09/08/2018 1:16 PM CDT) Ionized Calcium-POC 1.17 1.0 - 1.3 MMOL/L [facility] Performing Organization Address City/[facility] Phone Number MAIN LAB [address] [place] [phone] * POC SODIUM (09/08/2018 1:16 PM CDT) Sodium-POC 143 137 - 147 MMOL/L [facility] Performing Organization Address [facility] Phone Number [facility] [address] [place] [address] * POC POTASSIUM (09/08/2018 1:16 PM CDT) Potassium-POC 3.5 3.5 - 5.1 MMOL/L [facility] Performing Organization Address [facility] Phone Number MAIN LAB [address] [place] [address] * POC HEMATOCRIT (09/08/2018 1:16 PM CDT) Hemoglobin POC 10.2 (L) 12.0 - 15.0 GM/DL [facility] Hematocrit POC 30.0 (L) 36 - 45 % [facility] Performing Organization Address [facility] Phone Number [facility] [address] [place] [address] * POC BLOOD GAS ARTERIAL (09/08/2018 1:16 PM CDT) PH-ART-POC 7.43 7.35 - 7.45 [facility] ETX2-VTH-WCE 41 35 - 45 MMHG [facility] PO2-ART-POC 143 (H) 80 - 100 MMHG [facility] Base Ex-ART-POC 3.0 MMOL/L [facility] O2 Sat-ART-POC 99.0 95 - 99 % [facility] Bmzdpttadlr-RTB-KKQ 27.0 21 - 28 MMOL/L [facility] Performing Organization Address [facility] Phone Number [facility] [address] [place] [address] * MAGNESIUM (09/08/2018 1:15 PM CDT) Magnesium 2.3 1.6 - 2.6 mg/dL [facility] Specimen Blood Performing Organization Address [facility] Phone Number [facility] [address] [place] [address] * PTT (APTT) (09/08/2018 1:15 PM CDT) APTT 24.9Comment: NOTE NEW 20.0 - 36.0 SEC [facility] REFERENCE RANGES Specimen Blood Performing Organization Address [facility] Phone Number [facility] [address] [place] [address] * PROTIME INR (PT) (09/08/2018 1:15 PM CDT) INR 1.2 0.8 - 1.2 [facility] Specimen Blood Performing Organization Address [facility] Phone Number [facility] [address] [place] [address] * BASIC METABOLIC PANEL (09/08/2018 1:15 PM CDT) Sodium 140 137 - 147 MMOL/L [facility] Potassium 3.5 3.5 - 5.1 MMOL/L [facility] Chloride 107 98 - 110 [...] for questions. Specimen Blood Performing Organization Address City/[facility]/Zipcode Phone Number MAIN LAB [address] [place] [address] * CBC (09/08/2018 1:15 PM CDT) White Blood Cells 10.6 4.5 - 11.0 K/UL [facility] RBC 3.62 (L) 4.0 - 5.0 M/UL [facility] Hemoglobin 10.9 (L) 12.0 - 15.0 GM/DL [facility] Hematocrit 32.3 (L) 36 - 45 % [facility] MCV 89.4 80 - 100 FL [facility] MCH 30.2 26 - 34 PG [facility] MCHC 33.8 32.0 - 36.0 G/DL [facility] RDW 14.4 11 - 15 % [facility] Platelet Count 137 (L) 150 - 400 K/UL [facility] MPV 8.6 7 - 11 FL [facility] Specimen Blood Performing Organization Address [facility] Phone Number MAIN LAB [address] [place] [address] * POC GLUCOSE (09/08/2018 1:13 PM CDT) Glucose, POC 160 (H) 70 - 100 MG/DL MAIN LAB Performing Organization Address [facility] Phone Number MAIN LAB [address] [place] [address] * LINE PLCMT 1V CXR (09/08/2018 12:40 [...] artemio. Interval placement of a right IJ [place] catheter with its tip overlying the region [...] artemio. Interval placement of a right IJ [place] catheter with its tip overlying the region [...] on 09/08/2018 12:41 PM. Performing Organization Address [facility] Phone Number RAD RESULTS * POC IONIZED CALCIUM (09/08/2018 11:26 AM CDT) Ionized Calcium-POC 1.13 1.0 - 1.3 MMOL/L [facility] Performing Organization Address [facility] Phone Number [facility] [address] [place] [address] * POC SODIUM (09/08/2018 11:26 AM CDT) Sodium-POC 143 137 - 147 MMOL/L [facility] Performing Organization Address [facility] Phone Number MAIN LAB [address] [place] [address] * POC POTASSIUM (09/08/2018 11:26 AM CDT) Potassium-POC 3.2 (L) 3.5 - 5.1 MMOL/L [facility] Performing Organization Address City/[facility] Phone Number [facility] [address] [place] [address] * POC HEMATOCRIT (09/08/2018 11:26 AM CDT) Hemoglobin POC 8.2 (L) 12.0 - 15.0 GM/DL [facility] Hematocrit POC 24.0 (L) 36 - 45 % [facility] Performing Organization Address City/[facility] Phone Number [facility] [address] [place] [address] * POC BLOOD GAS ARTERIAL (09/08/2018 11:26 AM CDT) PH-ART-POC 7.48 (H) 7.35 - 7.45 [facility] RQN9-ZAY-MAJ 39 35 - 45 MMHG [facility] PO2-ART-POC 277 (H) 80 - 100 MMHG [facility] Base Ex-ART-POC 6.0 MMOL/L MAIN LAB O2 Sat-ART-POC 100.0 (H) 95 - 99 % MAIN LAB Jetujtgwuai-ZYK-OEH 29.2 (H) 21 - 28 MMOL/L [facility] Performing Organization Address [place]/[facility] Phone Number [facility] [address] [place] [address] * POC GLUCOSE (09/08/2018 11:24 AM CDT) Glucose, POC 159 (H) 70 - 100 MG/DL [facility] Performing Organization Address City/[facility]/Zipcode Phone Number MAIN LAB [address] [place] [address] * POC IONIZED CALCIUM (09/08/2018 10:36 AM CDT) Ionized Calcium-POC 1.05 1.0 - 1.3 MMOL/L [facility] Performing Organization Address City/[facility]/Zipcode Phone Number MAIN LAB [address] [place] [address] * POC SODIUM (09/08/2018 10:36 AM CDT) Sodium-POC 142 137 - 147 MMOL/L [facility] Performing Organization Address City/[facility]/Zipcode Phone Number MAIN LAB [address] [place] [address] * POC POTASSIUM (09/08/2018 10:36 AM CDT) Potassium-POC 3.6 3.5 - 5.1 MMOL/L [facility] Performing Organization Address [place]/[facility] Phone Number [facility] [address] [place] [address] * POC HEMATOCRIT (09/08/2018 10:36 AM CDT) Hemoglobin POC 8.2 (L) 12.0 - 15.0 GM/DL [facility] Hematocrit POC 24.0 (L) 36 - 45 % [facility] Performing Organization Address [place]/[facility] Phone Number [facility] [address] [place] [address] * POC BLOOD GAS ARTERIAL (09/08/2018 10:36 AM CDT) PH-ART-POC 7.47 (H) 7.35 - 7.45 [facility] QBE6-IJJ-HJV 45 35 - 45 MMHG [facility] PO2-ART-POC 437 (H) 80 - 100 MMHG [facility] Base Ex-ART-POC 9.0 MMOL/L [facility] O2 Sat-ART-POC 100.0 (H) 95 - 99 % MAIN LAB Dlwaqftbtvx-KRU-IME 32.8 (H) 21 - 28 MMOL/L [facility] Performing Organization Address [place]/[facility] Phone Number [facility] [address] [place] [address] * POC GLUCOSE (09/08/2018 10:34 AM CDT) Glucose, POC 154 (H) 70 - 100 MG/DL [facility] Performing Organization Address [place]/[facility] Phone Number [facility] [address] [place] [address] * POC IONIZED CALCIUM (09/08/2018 10:07 AM CDT) Ionized Calcium-POC 1.03 1.0 - 1.3 MMOL/L [facility] Performing Organization Address [place]/[facility] Phone Number MAIN LAB [address] [place] [phone] * POC SODIUM (09/08/2018 10:07 AM CDT) Sodium-POC 142 137 - 147 MMOL/L [facility] Performing Organization Address City/[facility]/Zipcode Phone Number [facility] [address] [place] [address] * POC POTASSIUM (09/08/2018 10:07 AM CDT) Potassium-POC 3.7 3.5 - 5.1 MMOL/L [facility] Performing Organization Address City/[facility] Phone Number MAIN LAB [address] [place] [address] * POC HEMATOCRIT (09/08/2018 10:07 AM CDT) Hemoglobin POC 8.8 (L) 12.0 - 15.0 GM/DL [facility] Hematocrit POC 26.0 (L) 36 - 45 % [facility] Performing Organization Address City/[facility] Phone Number MAIN LAB [address] [place] [address] * POC BLOOD GAS ARTERIAL (09/08/2018 10:07 AM CDT) PH-ART-POC 7.54 (H) 7.35 - 7.45 MAIN LAB OVU2-VID-ANL 38 35 - 45 MMHG [facility] PO2-ART-POC 363 (H) 80 - 100 MMHG [facility] Base Ex-ART-POC 9.0 MMOL/L MAIN LAB O2 Sat-ART-POC 100.0 (H) 95 - 99 % MAIN LAB Qrdswbxavbv-LEL-KEL 32.0 (H) 21 - 28 MMOL/L [facility] Performing Organization Address [facility] Phone Number MAIN LAB [address] [place] [address] * POC GLUCOSE (09/08/2018 10:05 AM CDT) Glucose, POC 135 (H) 70 - 100 MG/DL [facility] Performing Organization Address City/[facility]/Zipcode Phone Number MAIN LAB [address] [place] [address] * POC IONIZED CALCIUM (09/08/2018 9:39 AM CDT) Ionized Calcium-POC 1.01 1.0 - 1.3 MMOL/L [facility] Performing Organization Address City/[facility]/Zipcode Phone Number MAIN LAB [address] [place] [address] * POC SODIUM (09/08/2018 9:39 AM CDT) Sodium-POC 141 137 - 147 MMOL/L [facility] Performing Organization Address City/[facility]/Zipcode Phone Number [facility] [address] [place] [address] * POC POTASSIUM (09/08/2018 9:39 AM CDT) Potassium-POC 3.6 3.5 - 5.1 MMOL/L [facility] Performing Organization Address City/[facility]/Zipcode Phone Number [facility] [address] [place] [address] * POC HEMATOCRIT (09/08/2018 9:39 AM CDT) Hemoglobin POC 8.5 (L) 12.0 - 15.0 GM/DL [facility] Hematocrit POC 25.0 (L) 36 - 45 % [facility] Performing Organization Address City/[facility] Phone Number [facility] [address] [place] [address] * POC BLOOD GAS ARTERIAL (09/08/2018 9:39 AM CDT) PH-ART-POC 7.56 (H) 7.35 - 7.45 [facility] BKA1-TXA-SJQ 37 35 - 45 MMHG [facility] PO2-ART-POC 423 (H) 80 - 100 MMHG [facility] Base Ex-ART-POC 11.0 MMOL/L MAIN LAB O2 Sat-ART-POC 100.0 (H) 95 - 99 % MAIN LAB Rrzmbymtvpn-ZWO-AKP 33.4 (H) 21 - 28 MMOL/L [facility] Performing Organization Address [place]/[facility] Phone Number [facility] [address] [place] [address] * POC GLUCOSE (09/08/2018 9:37 AM CDT) Glucose, POC 116 (H) 70 - 100 MG/DL [facility] Performing Organization Address City/[facility]/Zipcode Phone Number [facility] [address] [place] [address] * POC GLUCOSE (09/08/2018 9:04 AM CDT) Glucose, POC 111 (H) 70 - 100 MG/DL [facility] Performing Organization Address City/[facility]/Zipcode Phone Number [facility] [address] [place] [address] * POC IONIZED CALCIUM (09/08/2018 8:41 AM CDT) Ionized Calcium-POC 1.16 1.0 - 1.3 MMOL/L [facility] Performing Organization Address [place]/[facility] Phone Number [facility] [address] [place] [address] * POC SODIUM (09/08/2018 8:41 AM CDT) Sodium-POC 142 137 - 147 MMOL/L [facility] Performing Organization Address [place]/[facility] Phone Number [facility] LAB [address] [place] [phone] * POC POTASSIUM (09/08/2018 8:41 AM CDT) Potassium-POC 3.2 (L) 3.5 - 5.1 MMOL/L [facility] Performing Organization Address [facility] Phone Number MAIN LAB [address] [place] [address] * POC HEMATOCRIT (09/08/2018 8:41 AM CDT) Hemoglobin POC 10.2 (L) 12.0 - 15.0 GM/DL MAIN LAB Hematocrit POC 30.0 (L) 36 - 45 % MAIN LAB Performing Organization Address [facility] Phone Number MAIN LAB [address] [place] [phone] * POC BLOOD GAS ARTERIAL (09/08/2018 8:41 AM CDT) PH-ART-POC 7.40 7.35 - 7.45 [facility] ULP5-NOK-YEU 48 (H) 35 - 45 MMHG [facility] PO2-ART-POC 103 (H) 80 - 100 MMHG MAIN LAB Base Ex-ART-POC 5.0 MMOL/L MAIN LAB O2 Sat-ART-POC 98.0 95 - 99 % MAIN LAB Apguowvuaqe-HQU-LZH 29.6 (H) 21 - 28 MMOL/L [facility] Performing Organization Address [facility] Phone Number MAIN LAB [address] [place] [address] * POC GLUCOSE (09/08/2018 8:38 AM CDT) Glucose, POC 104 (H) 70 - 100 MG/DL [facility] Performing Organization Address City/[facility] Phone Number [facility] LAB [address] [place] [address] * BLOOD TYPE CONFIRMATION - ORDER ONLY IF REQUESTED BY LAB (09/08/2018 7:25 AM CDT) ABO/RH(D) A NEG MAIN LAB Specimen Blood Performing Organization Address City/State/Zipcode Phone Number MAIN LAB [address] [place] [address] in this encounter Visit Diagnoses Diagnosis Mitral regurgitation Mitral valve disorders Atrial fibrillation (HCC) Atrial fibrillation in this encounter Administered Medications Action Date [...] ACETAMINOPHEN DOSE NOT TO EXCEED 4GM DAILY., 09/18/2018 9:28 AM CDT 650 mg acetaminophen [...] 650 mg Given 09/17/2018 8:44 AM CDT albuterol (PROAIR HFA, VENTOLIN HFA, or PROVENTIL [...] 30 mL Given 09/16/2018 7:12 PM CDT 09/18/2018 9:28 AM CDT 10 mg amLODIPine [...] 40 mg Given 09/16/2018 9:23 AM CDT 09/18/2018 9:29 AM CDT 6.25 mg carvedilol (COREG) tablet 6.25 mg Given 6.25 mg, Oral, TWICE DAILY, First dose on Tue09/13/18 at 0900, Until Discontinued, Hold for heart rate < 60 bpm or systolic BP < 100, 6.25 mg Given 09/17/2018 10:03 PM CDT 6.25 mg Given 09/17/2018 8:44 AM CDT 09/18/2018 9:29 AM CDT 2 mg doxazosin (CARDURA) tablet 2 mg Given 2 mg, Oral, DAILY, First dose on Tue09/09/18 at 1330, Until Discontinued 2 mg Given 09/17/2018 8:44 AM CDT 2 mg Given 09/16/2018 9:23 AM CDT 09/18/2018 9:29 AM CDT 40 mg furosemide (LASIX) tablet 40 mg Given 40 mg, Oral, DAILY, First dose on Tue09/15/18 at 0830, Until Discontinued 40 mg Given 09/17/2018 8:44 AM CDT 40 mg Given 09/16/2018 9:23 AM CDT 09/10/2018 3:39 AM CDT 20 mg hydrALAZINE (APRESOLINE) injection 10-20 Given mg 10-20 mg, Intravenous, EVERY 6 HOURS PRN, Starting 09/10/18 at 0018, Until Tue09/18/18 at 1309, Systolic Blood Pressure..., >160 mmHg 10 mg Given 09/10/2018 12:47 AM CDT 09/09/2018 9:07 AM CDT 10 mL milk of magnesia (CONC) oral suspension Given 10 mL 10 mL, Oral, DAILY PRN, Starting Tue09/08/18 at 1225, Until Tue09/18/18 at 1309, Constipation PO, May give per NG tube. 10 mL CONC=30 mL MOM, 09/15/2018 11:17 AM CDT 4 mg ondansetron [...] PO, (May use for PO or NG), 09/08/2018 9:35 PM CDT 10 mEq 50 [...] Oral, NEEDED, Starting Tue09/08/18 at 1225, Until Tue09/18/18 [...] tablets Given 09/13/2018 9:51 PM CDT 09/08/2018 10:10 AM CDT 5,000 mL sodium chloride 0.9 % infusion Given - New INTRA-PROCEDURE MED(CONT), Starting Fri Bag 09/08/18 at 1010, Until 09/08/18 at 1010, Intra-op 09/14/2018 8:31 AM CDT 100 mg traMADol (ULTRAM) tablet 50-100 mg Given 50-100 mg, Oral, EVERY 6 HOURS PRN, Starting 09/09/18 at 1129, Until 09/18/18 at 1309, Pain PO 50 mg Given 09/13/2018 8:55 PM CDT 100 mg Given 09/13/2018 3:30 PM CDT 09/08/2018 10:10 AM CDT 4 g vancomycin (VANCOCIN) injection Given INTRA-PROCEDURE MED, Starting 09/08/18 at 1010, Until 09/08/18 at 1224, Intra-op 09/17/2018 10:03 PM CDT 3 mg warfarin [...] 3 mg Given 09/15/2018 9:07 PM CDT in this encounter
--- OUTSIDE RECORDS SUMMARY | 2018-12-07 13:34 | XMS REPORT | Encounter Summary ---
Author Author [facility] Organization [facility] Address Unknown Phone Unavailable Care Team Providers Care Piping Manager Name Role Phone Unique Frye MD PCP Emilee Turner MD 21 Reason for Visit * Auth/Cert Referred By Contact Referred To Contact Status Reason Specialty Diagnoses / Procedures Diagnoses Mitral regurgitation Atrial fibrillation (HCC) Mitral regurgitation [I34.0] Atrial fibrillation (HCC) [I48.91] P rocedures CA VLVP MITRAL VALVE W/CARD BYP W/PROSTC RING CA ABLATION & RCNSTJ ATRIA EXTNSV W/BYPASS VALVULOPLASTY MITRAL VALVE WITH CARDIOPULMONARY BYPASS AND PROSTHETIC RING TISSUE ABLATION AND RECONSTRUCTION OF ATRIA WITH CARDIOPULMONARY BYPASS - EXTENSIVE Encounter Details Care Team Description Date Type Department Bunny MantillaDO [address] [place] [address] [phone] 09/08/2018 Anesthesia Cardiovascular Operating Event Room [address] [place] [address] Anesthesia Record Responsible Anesthesiologist Anesthesia Start Time Anesthesia Stop Time Procedure Name González Benson DO 09/08/18 0742 09/08/18 1230 VALVULOPLASTY MITRAL VALVE WITH CARDIOPULMONARY BYPASS AND PROSTHETIC RING (N/A ) Date Time Event Comment 614 AN Equip Check 2017 0722 0742 Anes Start 0745 Out of Pre Procedure 0747 An Start Data 0748 In Room 0755 An Induction The patient was reevaluated immediately before moderate or deep sedation use and before anesthesia induction. 0757 Art Line 0800 An Intubation 0820 CVC 0825 Anesthesia Ready 0826 AN ARNAUD 0842 Antibiotic Given 0854 Sternotomy 0914 An Aortic Cannula 0918 An Venous Cannula 0920 An CV Bypass init 0924 An Clamp On 0940 Quick Note Blood glucose 116 1009 Quick Note Blood glucose 135 Hgb 8.8 1050 An Clamp Off 1054 An Defib 1103 An CV Bypass Ended 1125 Quick Note Blood glucose 159 K 3.2 1222 Transport 1222 an stop data 1230 Handoff to RN I completed my SBAR handoff to the receiving nurse. 1230 An Stop Meds Name Total midazolam (VERSED) 1 mg/mL injection 6 mg fentaNYL PF (SUBLIMAZE) injection 1,000 mcg propofol (DIPRIVAN) 200 mg/ 20 mL 90 mg injection (VIAL) vecuronium (NORCURON) 10 mg injection 20 mg heparin (porcine) 1,000 units/mL 30,000 Units injection protamine injection 250 mg phenylephrine (MARYAN-SYNEPHRINE) 10 mg in 1.15 mg sodium chloride 0.9% (NS) 250 mL IV drip (std conc) nitroGLYCERIN 50 mg/D5W 250 mL infusion 16.36 mg aminocaproic acid (AMICAR) injection 5 g aminocaproic acid (AMICAR) 12.5 g in 142.67 mL sodium chloride 0.9% (NS) IVPB dextran 70/hypromellose (GENTEAL TEARS; 2 drop BION TEARS) ophthalmic solution glycopyrrolate (ROBINUL) 0.2mg/mL 0.4 mg injection ePHEDrine 50 mg/mL 50 mg in sodium 10 mg chloride PF 0.9% 5 mL IV syringe nitroGLYCERIN 200 mcg in dextrose 5% 920 mcg (D5W) syringe ceFAZolin (ANCEF) injection 4 g dexmedetomidine in 0.9 % NaCl (PRECEDEX) 88.4 mcg infusion sodium chloride 0.9 % infusion 800 mL electrolyte-A (PLASMA-LYTE A PH 7.4) 1,500 mL infusion lactated ringers infusion (1000 mL bag) 400 mL AUTOLOGOUS BLOOD (CELL SAVER) 766 mL * Name O2 N2O Inspired N2O Sevoflurane Isoflurane Inspired Isoflurane Inspired Sevoflurane * No blood administrations on file. Removal Type Details Placement Wounds 09/08/18; 1211; Chest; Surgical Incision 09/08/18 1211 by Naya (NOT for Laura Sanchez RN Pressure Injuries) 09/18/18 0945 by Hemalatha Sunshine RN Peripheral 09/08/18; 0725; RN; R; Wrist; 18 G; 09/08/18 0725 by Fareed IV 09/18/18; 0945 RIMMA Fried 09/09/18 1640 by Kelly Yuen RN Arterial 09/08/18; 0750 (created via procedure 09/08/18 0750 by Line documentation); Radial; 20 G; 09/09/18; Bunny Mantilla DO 1640 09/09/18 1604 by Kelly Yuen RN ETT 09/08/18; 0800; Ventilated by mask with 09/08/18 0800 by oral airway (2); Direct laryngoscopy; Bunyn Mantilla DO Single-Lumen, Cuffed; 7mm; Mac; 3; Oral; 1-Full view of the glottis; 1 insertion attempt; Auscultation, ETCO2 Detector; 22 centimeters; 09/09/18; 1604 09/08/18 1750 by Bunny Perez RT Endotrache 09/08/18; 0800; Oral; 7mm; Single-Lumen; 09/08/18 0800 by eh Perez Tube Auscultation, ETCO2 Detector, Other RT Bunny (Comment) (confirmed in OR); 23 cm; 09/08/18; 1750 09/10/18 1720 by Kelly Yuen RN Indwelling 09/08/18; 0805; Unit (Comment) (CVOR); 09/08/18 0805 by Naya Urinary 16 FR; Regular (Two-way); 09/10/18; 1720 Laura Sanchez RN Catheter 09/12/18 1445 by Gurjit Diehl RN Introducer 09/08/18; 0820 (created via procedure 09/08/18 0820 by / Cordis documentation); OR; Yes; 9 FR; Bunny Mantilla DO Chlorhexadine (CHG) impregnated sponge, Sterile occlusive dressing; 09/12/18; 1445 09/09/18 1029 by Bunny Alonso RN PA 09/08/18; 0825 (created via procedure 09/08/18 0825 by Catheter documentation); 09/09/18; 1029; N Bunny Mantilla DO 09/09/18 1444 by Bunny Alonso RN Chest Tube 09/08/18; 1100; Mediastinal; 24 FR, X2; 09/08/18 1100 by Naya 09/09/18; 1444 Laura Sanchez RN 09/08/18 1750 by Tien Gaitan RN Oral 09/08/18; 1240; Oral; 09/08/18; 1750 09/08/18 1240 by Susan Gaitan RN Tube in this encounter Social History Date Tobacco Use Types Packs/Day Years Used Never Smoker Smokeless Tobacco: Never Used Alcohol Use Drinks/Week oz/Week Comments No Sex Assigned at Date Recorded Not on file Industry Job Start Date Occupation Not on file Not on file Not on file Travel End Travel History Travel Start No recent travel history available. as of this encounter Plan of Treatment Date/Time Name Priority Associated Diagnoses 09/08/2018 9:29 AM CDT ANESTHESIA TRANSEESOPHAGEAL Routine ECHOCARDIOGRAM as of this encounter Results * ANESTHESIA PULMONARY ARTERY CATHETER INSERTION (09/08/2018 [...] entire procedure performed by a resident Staff name:González Benson DO Date:09/08/2018 Performed by: BUNNY MANTILLA [...] by: BUNNY MANTILLA Authorized by: GONZÁLEZ BENSON in this encounter Visit Diagnoses Not on filein this encounter Administered Medications Action Date Dose Rate Site Medication Order MAR Action 09/08/2018 8:56 AM CDT 40 mL/hr 40 mL/hr aminocaproic acid (AMICAR) 12.5 g in Given - New sodium chloride 0.9% (NS) IVPB Bag 250 mL, Intravenous, INTRA-PROCEDURE MED(CONT), Starting Tue09/08/18 at 0856, Until Tue09/08/18 at 1236, Anesthesia Intra-op 09/08/2018 8:56 AM CDT 5 g aminocaproic acid (AMICAR) injection Given Intravenous, INTRA-PROCEDURE MED, Starting Tue09/08/18 at 0856, Until Tue09/08/18 at 1236, Anesthesia Intra-op 09/08/2018 11:13 AM CDT AUTOLOGOUS BLOOD (CELL SAVER) Given - New INTRA-PROCEDURE MED(CONT), Starting Tue Bag 09/08/18 at 1113, Until Tue09/08/18 at 1236, Anesthesia Intra-op 09/08/2018 11:26 AM CDT 2 g ceFAZolin (ANCEF) injection Given INTRA-PROCEDURE MED, Starting Tue09/08/18 at 0842, Until Tue09/08/18 at 1236, Anesthesia Intra-op 2 g Given 09/08/2018 8:42 AM CDT 09/08/2018 11:24 AM CDT 0.7 mcg/kg/hr 20.1 mL/hr dexmedetomidine in 0.9 % NaCl (PRECEDEX) Given - New infusion Bag 50 mL, INTRA-PROCEDURE MED(CONT), Starting Tue09/08/18 at 1124, Until Tue09/08/18 at 1236, Anesthesia Intra-op 09/08/2018 8:02 AM CDT 2 drops dextran 70/hypromellose (GENTEAL TEARS; Given BION TEARS) ophthalmic solution INTRA-PROCEDURE MED, Starting Tue09/08/18 at 0802, Until Tue09/08/18 at 1236, Dry Eyes, Anesthesia Intra-op 09/08/2018 10:54 AM CDT electrolyte-A (PLASMA-LYTE A PH 7.4) Given - New injection Bag INTRA-PROCEDURE MED(CONT), Starting Tue09/08/18 at 0820, Until Tue09/08/18 at 1236, Anesthesia Intra-op Given - New Bag 09/08/2018 8:20 AM CDT 09/08/2018 8:33 AM CDT 10 mg ePHEDrine 50 mg/mL 50 mg in sodium Given - New chloride PF 0.9% 5 mL IV syringe Bag 5 mL, INTRA-PROCEDURE MED(CONT), Starting Tue09/08/18 at 0833, Until Tue09/08/18 at 1236, Anesthesia Intra-op 09/08/2018 10:53 AM CDT 250 mcg fentaNYL citrate PF (SUBLIMAZE) Given injection INTRA-PROCEDURE MED, Starting Tue09/08/18 at 0848, Until Tue09/08/18 at 1236, Pain Injectable, Anesthesia Intra-op 250 mcg Given 09/08/2018 8:52 AM CDT 250 mcg Given 09/08/2018 8:48 AM CDT 09/08/2018 8:33 AM CDT 0.2 mg glycopyrrolate (ROBINUL) injection Given INTRA-PROCEDURE MED, Starting Tue09/08/18 at 0830, Until Tue09/08/18 at 1236, Secretions, Anesthesia Intra-op 0.2 mg Given 09/08/2018 8:30 AM CDT 09/08/2018 9:00 AM CDT 30,000 Units heparin (porcine) injection Given Intravenous, INTRA-PROCEDURE MED, Starting Tue09/08/18 at 0900, Until Tue09/08/18 at 1236, Anesthesia Intra-op 09/08/2018 8:20 AM CDT lactated ringers infusion Given - New INTRA-PROCEDURE MED(CONT), Starting Tue09/08/18 at 0820, Until Tue09/08/18 at 1236, Anesthesia Intra-op 09/08/2018 12:25 PM CDT 3 mg midazolam (VERSED) injection Given Intravenous, INTRA-PROCEDURE MED, Starting Tue09/08/18 at 0741, Until Tue09/08/18 at 1236, Agitation Injectable, Anxiety Injectable, Anesthesia Intra-op 2 mg Given 09/08/2018 7:51 AM CDT 1 mg Given 09/08/2018 7:41 AM CDT 09/08/2018 11:16 AM CDT 100 mcg nitroGLYCERIN 200 mcg in dextrose 5% Bolus (D5W) syringe 10 mL, INTRA-PROCEDURE MED(CONT), Starting Tue09/08/18 at 0901, Until Tue09/08/18 at 1236, Anesthesia Intra-op 100 mcg Bolus 09/08/2018 11:14 AM CDT 200 mcg Bolus 09/08/2018 11:12 AM CDT 09/08/2018 12:05 PM CDT 0.5 mcg/kg/min 17.2 mL/hr nitroGLYCERIN 50 mg/D5W 250 mL infusion Infusion 250 mL, Intravenous, INTRA-PROCEDURE Restarted MED(CONT), Starting Tue09/08/18 at 0859, Until Tue09/08/18 at 1236, Anesthesia Intra-op 0.5 mcg/kg/min 17.2 mL/hr Dose/Rate Change 09/08/2018 11:43 AM CDT 1 mcg/kg/min 34.4 mL/hr Dose/Rate Change 09/08/2018 11:35 AM CDT 09/08/2018 8:30 AM CDT 0.5 mcg/kg/min 86.1 mL/hr phenylephrine (MARYAN-SYNEPHRINE) 10 mg in Given - New sodium chloride 0.9% (NS) 250 mL IV drip Bag (std conc) 250 mL, Intravenous, INTRA-PROCEDURE MED(CONT), Starting Tue09/08/18 at 0830, Until Tue09/08/18 at 1236, Anesthesia Intra-op 09/08/2018 12:25 PM CDT 30 mg propofol (DIPRIVAN) injection Given INTRA-PROCEDURE MED, Starting Tue09/08/18 at 0755, Until Tue09/08/18 at 1236, Anesthesia Intra-op 60 mg Given 09/08/2018 7:55 AM CDT 09/08/2018 11:14 AM CDT 30 mg protamine injection Given INTRA-PROCEDURE MED, Starting Tue09/08/18 at 1106, Until Tue09/08/18 at 1236, Anesthesia Intra-op 30 mg Given 09/08/2018 11:13 AM CDT 20 mg Given 09/08/2018 11:12 AM CDT 09/08/2018 7:31 AM CDT sodium chloride 0.9 % infusion Given - New 1,000 mL, Intravenous, at 20 mL/hr, Bag CONTINUOUS, Starting Tue09/08/18 at 0645, Until Tue09/08/18 at 1225, Pre-Op 09/08/2018 10:34 AM CDT 3 mg vecuronium (NORCURON) injection Given Intravenous, INTRA-PROCEDURE MED, Starting Tue09/08/18 at 0757, Until Tue09/08/18 at 1236, Anesthesia Intra-op 2 mg Given 09/08/2018 10:20 AM CDT 5 mg Given 09/08/2018 9:22 AM CDT in this encounter
--- OUTSIDE RECORDS SUMMARY | 2018-12-07 13:35 | XMS REPORT | Encounter Summary ---
Author Author [facility] Organization [facility] Address Unknown Phone Unavailable Care Team Providers Care Plastics Spreading Machine Operator Name Role Phone Unique Frye MD PCP Emilee Turner MD 21 Encounter Details Care Team Description Date Type Department Anthony River MD [address] [facility] [address] [place] [address] 09/07/2018 Orders Only [facility] [place] [address] Social History Date Tobacco Use Types Packs/Day [...] Comments Procedure Name Priority Date/Time Associated Diagnosis CULTURE-URINE 09/07/2018 W/SENSITIVITY 10:23 AM CDT in this encounter Results * CULTURE-URINE W/SENSITIVITY (09/07/2018 10:23 AM CDT) Battery Name URINE CULTURE [facility] Specimen Description URINE [facility] Special Requests NONE [facility] Culture <10,000 organisms/ml [facility] MIXED CONTAMINANTS Report Status FINAL [facility] 09/08/2018 Specimen Urine Performing Organization Address City/State/Zipcode Phone Number [facility] [address] [place] [address] in this encounter Visit Diagnoses Not on filein this encounter
--- OUTSIDE RECORDS SUMMARY | 2018-12-07 13:35 | XMS REPORT | Encounter Summary ---
Author Author [facility] Organization [facility] Address Unknown Phone Unavailable Care Team Providers Care Speech And Language Clinician Name Role Phone Unique Frye MD PCP Emilee Turner MD 21 Reason for Visit * Auth/Cert Referred By Contact Referred To Contact Status Reason Specialty Diagnoses / Procedures Diagnoses Mitral regurgitation Atrial fibrillation (HCC) Mitral regurgitation [I34.0] Atrial fibrillation (HCC) [I48.91] P rocedures [place] VLVP MITRAL VALVE W/CARD BYP W/PROSTC RING SD ABLATION & RCNSTJ ATRIA EXTNSV W/BYPASS VALVULOPLASTY MITRAL VALVE WITH CARDIOPULMONARY BYPASS AND PROSTHETIC RING TISSUE ABLATION AND RECONSTRUCTION OF ATRIA WITH CARDIOPULMONARY BYPASS - EXTENSIVE Encounter Details Care Team Description Date Type Department Anthony River MD [address] [facility] [address] [place] [address] [phone] 09/07/2018 Hospital [facility] Radiology [facility] 2nd fl [address] [place] [address] Social History Date Tobacco Use Types Packs/Day Years Used Never Smoker Smokeless Tobacco: Never Used Alcohol Use Drinks/Week oz/Week Comments No Sex Assigned at Date Recorded Not on file Industry Job Start Date Occupation Not on file Not on file Not on file Travel End Travel History Travel Start No recent travel history available. as of this encounter Medications at Time [...] by mouth every 6 hours as needed. 09/18/2018 apixaban (ELIQUIS) 5 mg Take 5 mg by 0 tablet mouth twice daily. 09/18/2018 carvedilol (COREG) 3.125 Take 3.125 mg 0 mg tablet by mouth twice daily. Take with food. 09/07/2018 09/18/2018 ciprofloxacin (CIPRO) 500 Take one 2 tablet 0 mg tablet tablet by mouth now and one tablet with a sip of water the morning of September 08 before coming to surgery. 09/18/2018 cloNIDine (CATAPRESS) 0.2 Take 0.2 mg 0 mg tablet by mouth at bedtime daily. 09/18/2018 diltiazem CD (CARDIZEM Take 120 mg 0 CD) 120 mg capsule by mouth twice daily. 09/19/2018 10/30/2018 furosemide (LASIX) 40 mg Take one 90 tablet 3 tablet tablet by mouth daily. 09/18/2018 furosemide (LASIX) 40 mg Take 80 mg by 0 tablet mouth every morning. 10/30/2018 potassium chloride SR Take 20 mEq [...] Priority Date/Time Associated Diagnosis CHEST 2 VIEWS STAT 09/07/2018 Mitral valve 11:56 AM CDT insufficiency, unspecified etiology Atrial fibrillation, unspecified type (HCC) in this encounter Visit Diagnoses Not on filein this encounter
--- OUTSIDE RECORDS SUMMARY | 2018-12-07 13:35 | XMS REPORT | Encounter Summary ---
Author Author [facility] Organization [facility] Address Unknown Phone Unavailable Care Team Providers Care Appetizer Packer Name Role Phone Unique Frye MD PCP Emilee Turner MD 21 Reason for Visit * Auth/Cert Referred By Contact Referred To Contact Status Reason Specialty Diagnoses / Procedures Diagnoses Mitral regurgitation Atrial fibrillation (HCC) Mitral regurgitation [I34.0] Atrial fibrillation (HCC) [I48.91] P rocedures [place] VLVP MITRAL VALVE W/CARD BYP W/PROSTC RING [place] ABLATION & RCNSTJ ATRIA EXTNSV W/BYPASS VALVULOPLASTY MITRAL VALVE WITH CARDIOPULMONARY BYPASS AND PROSTHETIC RING TISSUE ABLATION AND RECONSTRUCTION OF ATRIA WITH CARDIOPULMONARY BYPASS - EXTENSIVE Encounter Details Care Team Description Date Type Department Kwesi Vo MD [address] [facility] [address] [place] [address] [phone] 09/07/2018 Hospital Cardiovascular Medicine Encounter Main Hospital [facility] [address] [place] [address] Social History Date Tobacco Use [...] by mouth twice daily. Take with food. 09/18/2018 cloNIDine (CATAPRESS) 0.2 Take 0.2 mg [...]
--- OUTSIDE RECORDS SUMMARY | 2018-12-07 13:35 | XMS REPORT | Encounter Summary ---
Author Author [facility] Organization [facility] Address Unknown Phone Unavailable Care Team Providers Care Manager Of Operations Name Role Phone Unique Frye MD PCP Emilee Turner MD 21 Reason for Visit * Auth/Cert Referred By Contact Referred To Contact Status Reason Specialty Diagnoses / Procedures Diagnoses Mitral regurgitation Atrial fibrillation (HCC) Mitral regurgitation [I34.0] Atrial fibrillation (HCC) [I48.91] P rocedures CO VLVP MITRAL VALVE W/CARD BYP W/PROSTC RING CO ABLATION & RCNSTJ ATRIA EXTNSV W/BYPASS VALVULOPLASTY MITRAL VALVE WITH CARDIOPULMONARY BYPASS AND PROSTHETIC RING TISSUE ABLATION AND RECONSTRUCTION OF ATRIA WITH CARDIOPULMONARY BYPASS - EXTENSIVE Encounter Details Care Team Description Date Type Department Anthony River MD [address] [facility] [address] [place] [address] Encounter for blood typing (Primary Dx); Mitral valve insufficiency, unspecified etiology; Atrial fibrillation, unspecified type (HCC) 09/07/2018 PAC Office Preoperative Assessment Visit Clinic [facility] 1st fl G430 [address] [place], [place] [id number] Anesthesia Record Responsible Anesthesiologist Anesthesia Start Time [...] the receiving nurse. 1230 An Stop Meds * No agents on file. * No blood administrations on file. Removal Type Details Placement Wounds 09/08/18; 1211; Chest; Surgical Incision 09/08/18 1211 by Naya (NOT for Laura Sanchez RN Pressure Injuries) 09/18/18 0945 by Hemalatha Sunshine RN Peripheral 09/08/18; 0725; RN; R; Wrist; 18 G; 09/08/18 0725 by Fareed, IV 09/18/18; 0945 RIMMA Fried 09/09/18 1640 by Kelly Yuen RN Arterial 09/08/18; 0750 (created via procedure 09/08/18 0750 by Line documentation); Radial; 20 G; 09/09/18; Vito Harris DO 1640 09/09/18 1604 by Kelly Yuen RN ETT 09/08/18; 0800; Ventilated by mask with 09/08/18 0800 by oral airway (2); Direct laryngoscopy; Vito Harris DO Single-Lumen, Cuffed; 7mm; Mac; 3; Oral; 1-Full view of the glottis; 1 insertion attempt; Auscultation, ETCO2 Detector; 22 centimeters; 09/09/18; 1604 09/08/18 1750 by Vito Perez RT Endotrache 09/08/18; 0800; Oral; 7mm; Single-Lumen; 09/08/18 0800 by eh Perez Tube Auscultation, ETCO2 Detector, Other RT Vito (Comment) (confirmed in OR); 23 cm; 09/08/18; 1750 09/10/18 1720 by Kelly Yuen RN Indwelling 09/08/18; 0805; Unit (Comment) (CVOR); 09/08/18 0805 by Naya Urinary 16 FR; Regular (Two-way); 09/10/18; 1720 Laura Sanchez RN Catheter 09/12/18 1445 by Gurjit Diehl RN Introducer 09/08/18; 0820 (created via procedure 09/08/18 0820 by / Cordis documentation); OR; Yes; 9 FR; Vito Harris DO Chlorhexadine (CHG) impregnated sponge, Sterile occlusive dressing; 09/12/18; 1445 09/09/18 1029 by Vito Alonso RN PA 09/08/18; 0825 (created via procedure 09/08/18 0825 by Catheter documentation); 09/09/18; 1029; N Vito Harris DO 09/09/18 1444 by Vito Alonso RN Chest Tube 09/08/18; 1100; Mediastinal; 24 FR, X2; 09/08/18 1100 by Rembrandt 09/09/18; 1444 Luara Sanchez RN 09/08/18 1750 by Tien Gaitan [...] Vital Signs Time Taken Vital Sign Reading 09/07/2018 10:36 AM CDT Blood Pressure 149/82 09/07/2018 10:34 AM CDT Pulse 56 09/07/2018 10:34 AM CDT Temperature 36.6 C (97.9 F) - Respiratory Rate - 09/07/2018 10:34 AM CDT Oxygen Saturation 99% - Inhaled Oxygen - Concentration 09/07/2018 10:34 AM CDT Weight 117 kg (258 lb) 09/07/2018 10:34 AM CDT Height 167.6 cm (5' 6") 09/07/2018 10:34 AM CDT Body Mass Index 41.64 in this encounter Patient Instructions * Pre-Anesthesia Medication Instructions* Kyleigh aRymond - 09/07/2018 10:07 AM CDT YOUR MEDICATIONS: albuterol (PROAIR HFA, VENTOLIN HFA, OR PROVENTIL HFA) 90 mcg/actuation inhaler Inhale 2 puffs by mouth into the lungs every 6 hours as needed for Wheezing or Shortness of Breath. Shake well before use. amLODIPine (NORVASC) 10 mg tablet Take 10 mg by mouth at bedtime daily. apixaban (ELIQUIS) 5 mg tablet Take 5 mg by mouth twice daily. aspirin EC 81 mg tablet Take 81 mg by mouth daily. Take with food. carvedilol (COREG) 3.125 mg tablet Take 3.125 mg by mouth twice daily. Take with food. cloNIDine (CATAPRESS) 0.2 mg tablet Take 0.2 mg by mouth at bedtime daily. diltiazem CD (CARDIZEM CD) 120 mg capsule Take 120 mg by mouth twice daily. furosemide (LASIX) 40 mg tablet Take 80 mg by mouth every morning. potassium chloride SR (K-DUR) 10 mEq tablet Take 20 mEq by mouth daily. Take with a meal and a full glass of water. YOUR MEDICATION INSTRUCTIONS FOR SURGERY: Before surgery Stop the following medications NOW: Vitamins, supplements and herbal and natural products Stop the following medications NOW: Anti-inflammatory medications such as ibuprofen (Advil, Motrin) and naproxen (Aleve) You may use acetaminophen (Tylenol) Please follow these instructions regarding your blood thinner medications: Eliquis: Last dose was 08/31/18. Aspirin: Continue taking as usual, but skip dose on morning of surgery Morning of surgery On the morning of surgery, do NOT take these medications: Remaining vitamins/supplements Ointments/creams/lotions Furosemide Potassium chloride Aspirin On the morning of surgery, take ONLY these medications with a sip (1-2 ounces) of water: Carvedilol Diltiazem May take if needed: Albuterol inhaler as usual Other information Before surgery, please contact the clinic pharmacist with any medicine updates or questions. E-mail: [email or web address] Before going home from the hospital, please ask your doctor when you should re- start your medicines that were stopped before surgery. in this encounter Progress Notes * Kyleigh Raymond - 09/07/2018 10:30 AM CDT PAC Beta Juliette Instructions Note: Juany Coyle was seen in the PAC on 09/07/2018. As part of the visit, an accurate medication list was obtained and the patient was given pre-op medication instructions for upcoming surgery on 09/08/18. Juany Coyle is currently taking a beta juliette (carvedilol 3.125mg twice daily) . The patient was instructed to continue their beta juliette as prescribed and to take it on the day of surgery. The patient verbalized understanding. Kyleigh Raymond, PharmD in this encounter Plan of Treatment Not on fileas of this encounter Procedures Comments Procedure Name Priority Date/Time Associated Diagnosis ECG-SCAN 09/09/2018 11:30 AM CDT CHEST 2 VIEWS STAT 09/07/2018 Mitral valve [...] fibrillation, unspecified type (HCC) in this encounter Results * ECG-SCAN (09/09/2018 11:30 AM CDT) Narrative Performed At Ordered by an unspecified provider. * CHEST 2 VIEWS (09/07/2018 11:56 AM CDT) Impressions Performed At Mildly enlarged cardiac silhouette without vascular congestion. [facility] RESULTS Finalized by DIMITRIOS BAKER M.D. on 09/07/2018 12:12 PM. Dictated by DIMITRIOS BAKER M.D. on 09/07/2018 12:12 PM. Narrative Performed At CHEST 2 VIEWS [facility] RESULTS Clinical history: MV repair vs replace and Maze 09-08. Mitral valve insufficiency, unspecified etiology. Comparison: None. Findings: The cardiac silhouette is mildly enlarged without vascular congestion. No focal consolidation or pleural effusion is seen. There is mild thoracic spondylosis. Procedure Note Interface, Radiant Results - 09/07/2018 12:15 PM CDT CHEST 2 VIEWS Clinical history: MV repair vs replace and Maze -. Mitral valve insufficiency, unspecified etiology. Comparison: None. Findings: The cardiac silhouette is mildly enlarged without vascular congestion. No focal consolidation or pleural effusion is seen. There is mild thoracic spondylosis. IMPRESSION Mildly enlarged cardiac silhouette without vascular congestion. Finalized by DIMITRIOS BAKER M.D. on 09/07/2018 12:12 PM. Dictated by DIMITRIOS BAKER M.D. on 09/07/2018 12:12 PM. Performing Organization Address City/[facility] Phone Number RAD RESULTS * TYPE & CROSSMATCH (09/07/2018 10:24 AM CDT) Units Ordered 0 MAIN LAB Crossmatch Expires 09/10/2018 MAIN LAB Record Check 2ND TYPE REQUIRED MAIN LAB ABO/RH(D) A NEG MAIN LAB Antibody Screen NEG MAIN LAB Electronic Crossmatch YES MAIN LAB Specimen Blood Performing Organization Address [facility] Phone Number MAIN LAB [address] [place] [address] * PTT (APTT) (09/07/2018 10:24 AM CDT) APTT 29.6Comment: NOTE NEW 20.0 - 36.0 SEC MAIN LAB REFERENCE RANGES Specimen Blood Performing Organization Address [facility] Phone Number MAIN LAB [address] [place] [address] * PROTIME INR (PT) (09/07/2018 10:24 AM CDT) INR 1.1 0.8 - 1.2 MAIN LAB Specimen Blood Performing Organization Address [facility] Phone Number MAIN LAB [address] [place] [address] * HEMOGLOBIN A1C (09/07/2018 10:24 AM CDT) Hemoglobin A1C 5.6 4.0 - 6.0 % MAIN LAB Comment: The ADA recommends that most patients with type 1 and type 2 diabetes maintain an A1c level <7%. Specimen Blood Performing Organization Address [facility] Phone Number MAIN LAB [address] [place] [address] * COMPREHENSIVE METABOLIC PANEL (09/07/2018 10:24 AM CDT) Sodium 142 137 - 147 MMOL/L MAIN LAB Potassium 4.0 3.5 - 5.1 MMOL/L MAIN LAB Chloride 101 98 - 110 MMOL/L MAIN LAB Glucose 93 70 - 100 MG/DL MAIN LAB Blood Urea Nitrogen 25 7 - 25 MG/DL MAIN LAB Creatinine 1.25 (H) 0.4 - [...] for questions. Specimen Blood Performing Organization Address City/[facility]/Zipcode Phone Number [facility] [address] [place] [address] * CBC (09/07/2018 10:24 AM CDT) White Blood Cells 4.7 4.5 - 11.0 K/UL MAIN LAB RBC 4.11 4.0 - 5.0 M/UL MAIN LAB Hemoglobin 12.2 12.0 - 15.0 GM/DL [facility] MAIN LAB Hematocrit 36.8 36 - 45 % [facility] MAIN [facility] MCV 89.6 80 - 100 FL [facility] MAIN LAB MCH 29.6 26 - 34 PG MAIN LAB MCHC 33.0 32.0 - 36.0 G/DL [facility] RDW 14.2 11 - 15 % MAIN LAB Platelet Count 187 150 - 400 K/UL MAIN LAB MPV 8.3 7 - 11 FL MAIN LAB Specimen Blood Performing Organization Address City/[facility]/Zipcode Phone Number [facility] [address] [place] [address] * BNP (B-TYPE NATRIURETIC PEPTI) (09/07/2018 10:24 AM CDT) B Type Natriuretic 323.0 (H) 0 - 100 PG/ML [facility] MAIN [facility] Peptide Specimen Blood Performing Organization Address City/[facility]/Zipcode Phone Number [facility] [address] [place] [address] * URINALYSIS MICROSCOPIC REFLEX TO CULTURE (09/07/2018 10:23 AM CDT) WBCs,UA PACKED 0 - 2 /HPF [facility] MA[facility] RBCs,UA 0-2 0 - 3 /HPF [facility] Comment,UA Urine submitted for reflex [facility] MAIN LAB culture if criteria are met:WBC>10, positive nitrite and/or >=1+ leukocyte esterase. If quantity is not sufficient, an addendum will follow. Bacteria,UA MODERATE (A) NEG-NEG [facility] MAIN [facility] Squamous Epithelial Cells 5-10 0 - 5 [facility] MAIN [facility] Specimen Urine Performing Organization Address [facility] Phone Number [facility] [address] [place] [address] * URINALYSIS DIPSTICK REFLEX TO CULTURE (09/07/2018 10:23 AM CDT) Color,UA YELLOW [facility] Turbidity,UA 1+ (A) CLEAR-CLEAR [facility] MA[facility] Specific [place]-Urine 1.016 1.003 - 1.035 [facility] MAIN [facility] pH,UA 7.0 5.0 - 8.0 [facility] MA[facility] Protein,UA NEG NEG-NEG [facility] Glucose,UA NEG NEG-NEG [facility] Ketones,UA NEG NEG-NEG [facility] Bilirubin,UA NEG NEG-NEG [facility] Blood,UA NEG NEG-NEG [facility] Urobilinogen,UA INCREASED (A) NORM-NORMAL [facility] Nitrite,UA NEG NEG-NEG [facility] Leukocytes,UA 3+ (A) NEG-NEG [facility] MA[facility] Urine Ascorbic Acid, UA POS (A) NEG-NEG [facility]IN [facility] Comment: Ascorbic acid is found in various food supplies and dietary supplements, and is reported to cause strong interference with Macroscopic Urinalysis testing for glucose, blood and nitrite, and can result in a false negative result. Specimen Urine Performing Organization Address City/[facility]/Zipcode Phone Number MAIN LAB [address] [place] [address] * UA REFLEX CULTURE LABEL (09/07/2018 10:23 AM CDT) UA Reflex Culture LAB LABEL [facility]IN [facility] Specimen Urine Performing Organization Address City/State/Zipcode Phone Number MAIN LAB [address] [place] [address] in this encounter Visit Diagnoses Diagnosis Encounter for blood typing - Primary Mitral valve insufficiency, unspecified etiology Atrial fibrillation, unspecified type (HCC) in this encounter
--- OUTSIDE RECORDS SUMMARY | 2018-12-07 13:36 | XMS REPORT | Continuity of Care Document ---
Author Author [facility] Organization [facility] Address Unknown Phone Unavailable Allergies Active Description Code Type Severity Reaction Onset Reported/Identified Relationship to Patient Clinical Status Yes No Known Drug Allergies [id number] Drug Allergy Unknown N/A 04/19/2011 Medications There is no data. Problems Date Dx Coded Attending Type Code Diagnosis Diagnosed By 10/27/1422 PRIYANKA LATHAM DO Ot M17.12 UNILATERAL PRIMARY OSTEOARTHRITIS, LEFT 04/19/2011 Ot 562.10 04/19/2011 Ot 787.3 04/19/2011 Ot 787.99 02/20/2015 Ot V76.12 06/03/2015 JAKE PARK HAZMAT TECHNICIAN Ot 427.9 06/19/2015 UNIQUE FRYE DO S Ot 327.23 OBSTRUCTIVE SLEEP APNEA (ADULT) (PEDIATR 06/19/2015 KARRI FRYE DOLINE S Ot 427.2 PAROX TACHYCARDIA NOS 07/07/2015 MAYI FARMER, UNIQUE S Ot 327.23 OBSTRUCTIVE SLEEP APNEA (ADULT) (PEDIATR 07/17/2015 JAKE PARK HAZMAT TECHNICIAN Ot 789.06 07/25/2015 JAKE PARK HAZMAT TECHNICIAN Ot 573.8 07/25/2015 JAKE PARK HAZMAT TECHNICIAN Ot 789.06 10/30/2015 UNIQUE FRYE DO S [...] 02/18/2016 Ot V76.12 02/18/2016 NEETA, MART R IT APPLICATIONS DEVELOPER Ot 553.3 02/18/2016 NEETA, MART R IT APPLICATIONS DEVELOPER Ot 562.10 02/18/2016 NEETA, MART R IT APPLICATIONS DEVELOPER Ot 789.00 02/18/2016 NEETA, MART R IT APPLICATIONS DEVELOPER Ot 789.00 02/18/2016 ART SANTACRUZINA R IT APPLICATIONS DEVELOPER Ot 625.8 02/18/2016 ORENDER DO, UNIQUE S Ot V76.12 02/18/2016 Ot V76.12 02/18/2016 VANBECELAERE, JAKE M HAZMAT TECHNICIAN Ot 427.9 02/18/2016 VANBECELAERE, JAKE M HAZMAT TECHNICIAN Ot 789.06 02/18/2016 VANBECELAERE, JAKE M HAZMAT TECHNICIAN Ot 573.8 02/18/2016 VANBECELAERE, JAKE M HAZMAT TECHNICIAN Ot 789.06 02/18/2016 FERNNDER DO, UNIQUE S Ot R41.3 02/18/2016 [facility] R51 02/19/2016 SHIVANI CHAVARRIA IT APPLICATIONS DEVELOPER Ot Z12.31 03/03/2016 SHIVANI CHAVARRIA IT APPLICATIONS DEVELOPER Ot Z12.31 03/17/2016 SHIVANI CHAVARRIA IT APPLICATIONS DEVELOPER Ot R10.84 GENERALIZED ABDOMINAL PAIN 05/24/2016 ORENDER DO, UNIQUE S Ot E86.0 DEHYDRATION 05/24/2016 ORENDER DO, UNIQUE S Ot R11.0 NAUSEA 05/24/2016 ORENDER DO, UNQIUE S Ot R51 HEADACHE 05/25/2016 ORENDER DO, [...] MAMMO-MALIGN NEOPLASM OF SHAUN 02/21/2017 MART SANTACRUZ IT APPLICATIONS DEVELOPER Ot 553.3 DIAPHRAGMATIC HERNIA 02/21/2017 MART SANTACRUZ R IT APPLICATIONS DEVELOPER Ot 562.10 DIVERTICULOSIS COLON (W/O MENT OF HEMORR 02/21/2017 MART SANTACRUZ IT APPLICATIONS DEVELOPER Ot 789.00 ABDOMINAL PAIN, UNSPECIFIED SITE 02/21/2017 MART SANTACRUZ IT APPLICATIONS DEVELOPER Ot 789.00 ABDOMINAL PAIN, UNSPECIFIED SITE 02/21/2017 MART SANTACRUZ IT APPLICATIONS DEVELOPER Ot 625.8 FEM GENITAL SYMPTOMS NEC 02/21/2017 UNIQUE FRYE DO S Ot V76.12 OTH SCREEN MAMMO-MALIGN NEOPLASM OF SHAUN 02/21/2017 Ot V76.12 OTH SCREEN MAMMO-MALIGN NEOPLASM OF SHAUN 02/21/2017 VANJAKE EPSTEIN M HAZMAT TECHNICIAN Ot 427.9 CARDIAC DYSRHYTHMIA NOS 02/21/2017 JAKE PARK M HAZMAT TECHNICIAN Ot 789.06 ABDOMINAL PAIN, EPIGASTRIC 02/21/2017 JAKE PARK M HAZMAT TECHNICIAN Ot 573.8 LIVER DISORDERS NEC 02/21/2017 JAKE PARK M HAZMAT TECHNICIAN Ot 789.06 ABDOMINAL PAIN, EPIGASTRIC 02/21/2017 KARRI FRYE DOLINE S Ot R41.3 OTHER AMNESIA 02/21/2017 KARRI FRYE DOLINE S Ot R51 HEADACHE 02/21/2017 SHIVANI CHAVARRIA IT APPLICATIONS DEVELOPER Ot Z12.31 ENCNTR SCREEN MAMMOGRAM FOR MALIGNANT NE 02/21/2017 SHIVANI CHAVARRIA IT APPLICATIONS DEVELOPER Ot R10.84 GENERALIZED ABDOMINAL PAIN 02/21/2017 UNIQUE [...] MAMMO-MALIGN NEOPLASM OF SHAUN 09/05/2017 MART SANTACRUZ IT APPLICATIONS DEVELOPER Ot 553.3 DIAPHRAGMATIC HERNIA 09/05/2017 MART SANTACRUZ IT APPLICATIONS DEVELOPER Ot 562.10 DIVERTICULOSIS COLON (W/O MENT OF HEMORR 09/05/2017 MART SANTACRUZ IT APPLICATIONS DEVELOPER Ot 789.00 ABDOMINAL PAIN, UNSPECIFIED SITE 09/05/2017 MART SANTACRUZ IT APPLICATIONS DEVELOPER Ot 789.00 ABDOMINAL PAIN, UNSPECIFIED SITE 09/05/2017 MART SANTACRUZ IT APPLICATIONS DEVELOPER Ot 625.8 FEM GENITAL SYMPTOMS NEC 09/05/2017 MAYI FARMER UNIQUE S Ot V76.12 OTH SCREEN MAMMO-MALIGN NEOPLASM OF SHAUN 09/05/2017 Ot V76.12 OTH SCREEN MAMMO-MALIGN NEOPLASM OF SHAUN 09/05/2017 JAKE PARK M HAZMAT TECHNICIAN Ot 427.9 CARDIAC DYSRHYTHMIA NOS 09/05/2017 XAVIER, JAKE M HAZMAT TECHNICIAN Ot 789.06 ABDOMINAL PAIN, EPIGASTRIC 09/05/2017 VANLUCIAN, JAKE M HAZMAT TECHNICIAN Ot 573.8 LIVER DISORDERS NEC 09/05/2017 VANHUBERTELAESUSIE, JAKE M HAZMAT TECHNICIAN Ot 789.06 ABDOMINAL PAIN, EPIGASTRIC 09/05/2017 UNIQUE FRYE DO S Ot R41.3 OTHER AMNESIA 09/05/2017 UNIQUE FRYE DO S Ot R51 HEADACHE 09/05/2017 SHIVANI CHAVARRIA IT APPLICATIONS DEVELOPER Ot Z12.31 ENCNTR SCREEN MAMMOGRAM FOR MALIGNANT NE 09/05/2017 SHIVANI CHAVARRIA IT APPLICATIONS DEVELOPER Ot R10.84 GENERALIZED ABDOMINAL PAIN 09/05/2017 IRVING FRYE DOQUELINE S Ot E86.0 DEHYDRATION 09/05/2017 ORENDER DO, UNIQUE S Ot R11.0 NAUSEA 09/05/2017 [facility], [facility]QUE S Ot R51 HEADACHE 09/05/2017 ORENDER DO, UNIQUE S Ot Z12.31 ENCNTR SCREEN MAMMOGRAM FOR MALIGNANT NE 09/06/2017 OTHER, UNLISTED Ot M17.12 UNILATERAL PRIMARY OSTEOARTHRITIS, LEFT 09/11/2017 OTHER, UNLISTED Ot M17.12 UNILATERAL PRIMARY OSTEOARTHRITIS, LEFT 09/29/2017 OTHER, UNLISTED Ot M17.12 UNILATERAL PRIMARY OSTEOARTHRITIS, LEFT 10/06/2017 OTHER, UNLISTED Ot M17.12 UNILATERAL PRIMARY OSTEOARTHRITIS, LEFT 11/08/2017 BRAYAN, GOLDEN R IT APPLICATIONS DEVELOPER Ot 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 11/08/2017 BRAYAN, GOLDEN R IT APPLICATIONS DEVELOPER Ot M17.12 UNILATERAL PRIMARY OSTEOARTHRITIS, LEFT 11/08/2017 BRAYAN, GOLDEN R IT APPLICATIONS DEVELOPER Ot M71.22 SYNOVIAL CYST OF POPLITEAL SPACE [GARCIA] 11/23/2017 BRAYAN, GOLDEN R IT APPLICATIONS DEVELOPER Ot 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 11/23/2017 BRAYAN, GOLDEN R IT APPLICATIONS DEVELOPER Ot M17.12 UNILATERAL PRIMARY OSTEOARTHRITIS, LEFT 11/23/2017 BRAYAN, GOLDEN R IT APPLICATIONS DEVELOPER Ot M71.22 SYNOVIAL CYST OF POPLITEAL SPACE [GARCIA] 12/02/2017 BRAYAN, GOLDEN R IT APPLICATIONS DEVELOPER Ot 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 12/02/2017 BRAYAN, GOLDEN R IT APPLICATIONS DEVELOPER Ot M17.12 UNILATERAL PRIMARY OSTEOARTHRITIS, LEFT 12/02/2017 BRAYAN, GOLDEN R IT APPLICATIONS DEVELOPER Ot M71.22 SYNOVIAL CYST OF POPLITEAL SPACE [GARCIA] 01/12/2018 YEISON DO, PRIYANKA Laura Ot M17.12 UNILATERAL PRIMARY OSTEOARTHRITIS, LEFT 02/23/2018 [facility]IQUE S Ot Z12.31 ENCNTR [...] PNEUMONIA, UNSPECIFIED ORGANISM 05/11/2018 BRAYAN, GOLDEN R IT APPLICATIONS DEVELOPER Ot R06.00 DYSPNEA, UNSPECIFIED 05/11/2018 BRAYAN, GOLDEN R IT APPLICATIONS DEVELOPER Ot R79.1 ABNORMAL COAGULATION PROFILE 06/01/2018 ORENDER DO, UNIQUE S Ot I51.7 CARDIOMEGALY 06/01/2018 ORENDER DO, UNIQUE S Ot J18.9 PNEUMONIA, UNSPECIFIED ORGANISM 06/01/2018 BRAYAN, GOLDEN R IT APPLICATIONS DEVELOPER Ot R06.00 DYSPNEA, UNSPECIFIED 06/01/2018 BRAYAN, GOLDEN R IT APPLICATIONS DEVELOPER Ot R79.1 ABNORMAL COAGULATION PROFILE 06/08/2018 ORENDER DO, UNIQUE S Ot I51.7 CARDIOMEGALY 06/08/2018 ORENDER DO, UNIQUE S Ot J18.9 PNEUMONIA, UNSPECIFIED ORGANISM 06/08/2018 BRAYAN, GOLDEN R IT APPLICATIONS DEVELOPER Ot R06.00 DYSPNEA, UNSPECIFIED 06/08/2018 BRAYAN, GOLDEN R IT APPLICATIONS DEVELOPER Ot R79.1 ABNORMAL COAGULATION PROFILE 06/14/2018 ORENDER DO, UNIQUE S Ot I51.7 CARDIOMEGALY 06/14/2018 ORENDER DO, UNIQUE S Ot R07.9 CHEST PAIN, UNSPECIFIED 06/16/2018 ORENDER DO, UNIQUE S Ot M54.2 CERVICALGIA 06/16/2018 ORENDER DO, UNIQUE S Ot R51 HEADACHE 06/23/2018 ORENDER DO, UNIQUE S Ot I10 ESSENTIAL (PRIMARY) HYPERTENSION 06/23/2018 ORENDER DO, UNIQUE S Ot I27.20 PULMONARY HYPERTENSION, UNSPECIFIED 06/23/2018 ORENDER DO, UNIQUE S Ot I48.91 UNSPECIFIED ATRIAL FIBRILLATION 06/23/2018 ORENDER DO, UNIQUE S Ot R06.03 ACUTE RESPIRATORY DISTRESS 06/23/2018 ORENDER DO, UNIQUE S Ot R07.89 OTHER CHEST PAIN 06/23/2018 ORENDER DO, UNIQUE S Ot Z87.01 PERSONAL HISTORY OF PNEUMONIA (RECURRENT 06/23/2018 ORENDER DO, UNIQUE S Ot I10 ESSENTIAL (PRIMARY) HYPERTENSION 06/23/2018 ORENDER DO, UNIQUE S Ot I27.20 PULMONARY HYPERTENSION, UNSPECIFIED 06/23/2018 ORENDER DO, UNIQUE S Ot I48.91 UNSPECIFIED ATRIAL FIBRILLATION 06/23/2018 ORENDER DO, UNIQUE S Ot R06.03 ACUTE RESPIRATORY DISTRESS 06/23/2018 ORENDER DO, UNIQUE S Ot R07.89 OTHER CHEST PAIN 06/23/2018 ORENDER DO, UNIQUE S Ot Z87.01 PERSONAL HISTORY OF PNEUMONIA (RECURRENT 06/23/2018 ORENDER DO, UNIQUE S Ot I10 ESSENTIAL (PRIMARY) HYPERTENSION 06/23/2018 ORENDER DO, UNIQUE S Ot I27.20 PULMONARY HYPERTENSION, UNSPECIFIED 06/23/2018 ORENDER DO, UNIQUE S Ot I48.91 UNSPECIFIED ATRIAL FIBRILLATION 06/23/2018 ORENDER DO, UNIQUE S Ot R06.03 ACUTE RESPIRATORY DISTRESS 06/23/2018 ORENDER DO, UNIQUE S Ot R07.89 OTHER CHEST PAIN 06/23/2018 ORENDER DO, UNIQUE S Ot Z87.01 PERSONAL HISTORY OF PNEUMONIA (RECURRENT 06/24/2018 ORENDER DO, UNIQUE S Ot I10 ESSENTIAL (PRIMARY) HYPERTENSION 06/24/2018 ORENDER DO, UNIQUE S Ot I27.20 PULMONARY HYPERTENSION, UNSPECIFIED 06/24/2018 ORENDER DO, UNIQUE S Ot I48.91 UNSPECIFIED ATRIAL FIBRILLATION 06/24/2018 ORENDER DO, UNIQUE S Ot R06.03 ACUTE RESPIRATORY DISTRESS 06/24/2018 ORENDER DO, UNIQUE S Ot R07.89 OTHER CHEST PAIN 06/24/2018 ORENDER DO, UNIQUE S Ot Z87.01 PERSONAL HISTORY OF PNEUMONIA (RECURRENT 06/24/2018 ORENDER DO, UNIQUE S Ot E66.9 OBESITY, UNSPECIFIED 06/24/2018 UNIQUE FRYE DO Ot G47.30 SLEEP APNEA, UNSPECIFIED 06/24/2018 UNIQUE FRYE DO Ot I10 ESSENTIAL (PRIMARY) HYPERTENSION 06/24/2018 MONA UNIQUE FARMER Ot I27.20 PULMONARY HYPERTENSION, UNSPECIFIED 06/24/2018 MONA UNIQUE FARMER Ot I34.0 NONRHEUMATIC MITRAL (VALVE) INSUFFICIENC 06/24/2018 UNIQUE FRYE DO S Ot I48.2 CHRONIC ATRIAL FIBRILLATION 06/24/2018 MONA UNIQUE S Ot J96.01 ACUTE RESPIRATORY FAILURE WITH HYPOXIA 06/24/2018 UNIQUE FRYE DO S Ot R07.89 OTHER CHEST PAIN 06/24/2018 MONA UNIQUE S Ot R41.3 OTHER AMNESIA 06/24/2018 MAYI FARMER UNIQUE S Ot R51 HEADACHE 06/24/2018 [facility] Ot R53.1 WEAKNESS 06/24/2018 MONA UNIQUE Mullen Ot Z68.37 BODY MASS INDEX (BMI) 37.0-37.9, ADULT 06/24/2018 UNIQUE FRYE DO Ot Z79.01 SNF (CURRENT) USE OF ANTICOAGULANT 06/24/2018 UNIQUE FRYE DO Ot Z87.01 PERSONAL HISTORY OF PNEUMONIA (RECURRENT 07/05/2018 FERNIRAM FARMER UNIQUE Mullen Ot M54.2 CERVICALGIA 07/05/2018 [facility] S Ot R51 HEADACHE 07/18/2018 MART SANTACRUZ IT APPLICATIONS DEVELOPER Ot 553.3 DIAPHRAGMATIC HERNIA 07/18/2018 MART SANTACRUZ IT APPLICATIONS DEVELOPER Ot 562.10 DIVERTICULOSIS COLON (W/O MENT OF HEMORR 07/18/2018 MART SANTACRUZ APRN Ot 789.00 ABDOMINAL PAIN, UNSPECIFIED SITE 07/18/2018 MART SANTACRUZ IT APPLICATIONS DEVELOPER Ot 789.00 ABDOMINAL PAIN, UNSPECIFIED SITE 07/18/2018 MART SANTACRUZ IT APPLICATIONS DEVELOPER Ot 625.8 FEM GENITAL SYMPTOMS NEC 07/18/2018 MONAMICHELLE FARMER UNIQUE Mullen Ot V76.12 OTH SCREEN MAMMO-MALIGN NEOPLASM OF SHAUN 07/18/2018 Ot V76.12 OTH SCREEN MAMMO-MALIGN NEOPLASM OF SHAUN 07/18/2018 JAKE PARK HAZMAT TECHNICIAN Ot 427.9 CARDIAC DYSRHYTHMIA NOS 07/18/2018 JAKE PARK HAZMAT TECHNICIAN Ot 789.06 ABDOMINAL PAIN, EPIGASTRIC 07/18/2018 JAKE PARK HAZMAT TECHNICIAN Ot 573.8 LIVER DISORDERS NEC 07/18/2018 JAKE PARK HAZMAT TECHNICIAN Ot 789.06 ABDOMINAL PAIN, EPIGASTRIC 07/18/2018 ORENDER DO, UNIQUE S Ot R41.3 OTHER AMNESIA 07/18/2018 ORENDER DO, UNIQUE S Ot R51 HEADACHE 07/18/2018 SHIVANI CHAVARRIA APRN Ot Z12.31 ENCNTR SCREEN MAMMOGRAM FOR MALIGNANT NE 07/18/2018 SHIVANI CHAVARRIA IT APPLICATIONS DEVELOPER Ot R10.84 GENERALIZED ABDOMINAL PAIN 07/18/2018 FERNNDER DO, UNIQUE S Ot E86.0 DEHYDRATION 07/18/2018 ORENDER DO, UNIQUE S Ot R11.0 NAUSEA 07/18/2018 ORENDER DO, UNIQUE S Ot R51 HEADACHE 07/18/2018 ORENDER DO, UNIQUE S Ot Z12.31 ENCNTR SCREEN MAMMOGRAM FOR MALIGNANT NE 07/18/2018 OTHER, UNLISTED Ot M17.12 UNILATERAL PRIMARY OSTEOARTHRITIS, LEFT 07/18/2018 GOLDEN SCHMIDT APRN Ot 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 07/18/2018 GOLDEN SCHMIDT APRN Ot M17.12 UNILATERAL PRIMARY OSTEOARTHRITIS, LEFT 07/18/2018 GOLDEN SCHMIDT IT APPLICATIONS DEVELOPER Ot M71.22 SYNOVIAL CYST OF POPLITEAL SPACE [GARCIA] 07/18/2018 FERNNDER DO, UNIQUE S Ot Z12.31 ENCNTR SCREEN MAMMOGRAM FOR MALIGNANT NE 07/18/2018 FERNNDER , UNIQUE S Ot I51.7 CARDIOMEGALY 07/18/2018 FERNNDER , UNIQUE S Ot J18.9 PNEUMONIA, UNSPECIFIED ORGANISM 07/18/2018 GOLDEN SCHMIDT APRN Ot R06.00 DYSPNEA, UNSPECIFIED 07/18/2018 GOLDEN SCHMIDT APRN Ot R79.1 ABNORMAL COAGULATION PROFILE 07/18/2018 FERNUNIQUE WALDEN DO S Ot I51.7 CARDIOMEGALY 07/18/2018 FERNKARRI WALDEN DOLINE S Ot R07.9 CHEST PAIN, UNSPECIFIED 07/24/2018 Iris SALMON MD Ot E66.01 MORBID (SEVERE) OBESITY DUE TO EXCESS CA 07/24/2018 Iris SALMON MD Ot E78.5 HYPERLIPIDEMIA, UNSPECIFIED 07/24/2018 Iris SALMON MD Ot I11.0 HYPERTENSIVE HEART DISEASE WITH HEART FA 07/24/2018 Iris SALMON MD Ot I34.0 NONRHEUMATIC MITRAL (VALVE) INSUFFICIENC 07/24/2018 Iris SALMON MD Ot I48.0 PAROXYSMAL ATRIAL FIBRILLATION 07/24/2018 Iris SALMON MD Ot I50.32 CHRONIC DIASTOLIC (CONGESTIVE) HEART QUINTIN 07/24/2018 Iris SALMON MD Ot Z68.41 BODY MASS INDEX (BMI) 40.0-44.9, ADULT 07/24/2018 Iris SALMON MD Ot Z79.01 UTILITY TENDER CARDING (CURRENT) USE OF ANTICOAGULANT 07/24/2018 Iris SALMON MD Ot Z79.82 SNF (CURRENT) USE OF ASPIRIN 07/25/2018 Iris SALMON MD Ot E66.01 MORBID (SEVERE) OBESITY DUE TO EXCESS CA 07/25/2018 Iris SALMON MD Ot E78.5 HYPERLIPIDEMIA, UNSPECIFIED 07/25/2018 Iris SALMON MD Ot I11.0 HYPERTENSIVE HEART DISEASE WITH HEART FA 07/25/2018 Iris SALMON MD Ot I34.0 NONRHEUMATIC MITRAL (VALVE) INSUFFICIENC 07/25/2018 Iris SALMON MD Ot I48.0 PAROXYSMAL ATRIAL FIBRILLATION 07/25/2018 Iris SALMON MD Ot I50.32 CHRONIC DIASTOLIC (CONGESTIVE) HEART QUINTIN 07/25/2018 Iris SALMON MD Ot Z68.41 BODY MASS INDEX (BMI) 40.0-44.9, ADULT 07/25/2018 Iris SALOMN MD Ot Z79.01 UTILITY TENDER CARDING (CURRENT) USE OF ANTICOAGULANT 07/25/2018 Iris SALMON MD Ot Z79.82 UTILITY TENDER CARDING (CURRENT) USE OF ASPIRIN 07/25/2018 Iris SALMON MD Ot E66.01 MORBID (SEVERE) OBESITY DUE TO EXCESS CA 07/25/2018 Iris SALMON MD Ot E78.5 HYPERLIPIDEMIA, UNSPECIFIED 07/25/2018 Iris SALMON MD Ot I11.0 HYPERTENSIVE HEART DISEASE WITH HEART FA 07/25/2018 Iris SALMON MD Ot I34.0 NONRHEUMATIC MITRAL (VALVE) INSUFFICIENC 07/25/2018 Iris SALMON MD Ot I48.0 PAROXYSMAL ATRIAL FIBRILLATION 07/25/2018 Iris SALMON MD Ot I50.32 CHRONIC DIASTOLIC (CONGESTIVE) HEART QUINTIN 07/25/2018 Iris SALMON MD Ot Z68.41 BODY MASS INDEX (BMI) 40.0-44.9, ADULT 07/25/2018 Iris SALMON MD Ot Z79.01 SNF (CURRENT) USE OF ANTICOAGULANT 07/25/2018 Iris SALMON MD Ot Z79.82 UTILITY TENDER CARDING (CURRENT) USE OF ASPIRIN 07/26/2018 Iris SALMON MD Ot E66.01 MORBID (SEVERE) OBESITY DUE TO EXCESS CA 07/26/2018 Iris SALMON MD Ot E78.5 HYPERLIPIDEMIA, UNSPECIFIED 07/26/2018 Iris SALMON MD Ot I11.0 HYPERTENSIVE HEART DISEASE WITH HEART FA 07/26/2018 Iris SALMON MD Ot I34.0 NONRHEUMATIC MITRAL (VALVE) INSUFFICIENC 07/26/2018 Iris SALMON MD Ot I48.0 PAROXYSMAL ATRIAL FIBRILLATION 07/26/2018 Iris SALMON MD Ot I50.32 CHRONIC DIASTOLIC (CONGESTIVE) HEART QUINTIN 07/26/2018 Iris SALMON MD Ot Z68.41 BODY MASS INDEX (BMI) 40.0-44.9, ADULT 07/26/2018 Iris SALMON MD Ot Z79.01 SNF (CURRENT) USE OF ANTICOAGULANT 07/26/2018 Iris SALMON MD Ot Z79.82 SNF (CURRENT) USE OF ASPIRIN 08/10/2018 Iris SALMON MD Ot E66.01 MORBID (SEVERE) OBESITY DUE TO EXCESS CA 08/10/2018 Iris SALMON MD Ot I11.0 HYPERTENSIVE HEART DISEASE WITH HEART FA 08/10/2018 Iris SALMON MD Ot I34.0 NONRHEUMATIC MITRAL (VALVE) INSUFFICIENC 08/10/2018 Iris SALMON MD Ot I48.1 PERSISTENT ATRIAL FIBRILLATION 08/10/2018 Iris SALMON MD Ot I50.32 CHRONIC DIASTOLIC (CONGESTIVE) HEART QUINTIN 08/10/2018 Iris SALMON MD Ot Z68.41 BODY MASS INDEX (BMI) 40.0-44.9, ADULT 08/16/2018 Iris SALMON MD Ot E66.01 MORBID (SEVERE) OBESITY DUE TO EXCESS CA 08/16/2018 Iris SALMON MD Ot E78.5 HYPERLIPIDEMIA, UNSPECIFIED 08/16/2018 Iris SALMON MD Ot I11.0 HYPERTENSIVE HEART DISEASE WITH HEART FA 08/16/2018 Iris SALMON MD Ot I34.0 NONRHEUMATIC MITRAL (VALVE) INSUFFICIENC 08/16/2018 Iris SALMON MD Ot I48.0 PAROXYSMAL ATRIAL FIBRILLATION 08/16/2018 Iris SALMON MD Ot I50.32 CHRONIC DIASTOLIC (CONGESTIVE) HEART QUINTIN 08/16/2018 Iris SALMON MD Ot Z68.41 BODY MASS INDEX (BMI) 40.0-44.9, ADULT 08/16/2018 Iris SALMON MD Ot Z79.01 SNF (CURRENT) USE OF ANTICOAGULANT 08/16/2018 Iris SALMON MD Ot Z79.82 SNF (CURRENT) USE OF ASPIRIN 08/23/2018 Iris SALMON MD Ot E66.01 MORBID (SEVERE) OBESITY DUE TO EXCESS CA 08/23/2018 Iris SALMON MD Ot E78.5 HYPERLIPIDEMIA, UNSPECIFIED 08/23/2018 Iris SALMON MD Ot I11.0 HYPERTENSIVE HEART DISEASE WITH HEART FA 08/23/2018 Iris SALMON MD Ot I34.0 NONRHEUMATIC MITRAL (VALVE) INSUFFICIENC 08/23/2018 Iris SALMON MD Ot I48.0 PAROXYSMAL ATRIAL FIBRILLATION 08/23/2018 Iris SALMON MD, Ot I50.32 CHRONIC DIASTOLIC (CONGESTIVE) HEART QUINTIN 08/23/2018 Iris SALMON MD Ot Z68.41 BODY MASS INDEX (BMI) 40.0-44.9, ADULT 08/23/2018 Iris SALMON MD Ot Z79.01 UTILITY TENDER CARDING (CURRENT) USE OF ANTICOAGULANT 08/23/2018 Iris SALMON MD Ot Z79.82 SNF (CURRENT) USE OF ASPIRIN 08/24/2018 FERNNDER DO, UNIQUE S Ot G47.33 OBSTRUCTIVE SLEEP APNEA (ADULT) (PEDIATR 08/24/2018 ORENDER DO, UNIQUE S Ot G47.33 OBSTRUCTIVE SLEEP APNEA (ADULT) (PEDIATR 08/25/2018 ORENDER DO, UNIQUE S Ot G47.33 OBSTRUCTIVE SLEEP APNEA (ADULT) (PEDIATR 08/25/2018 ORENDER DO, UNIQUE S Ot G47.36 SLEEP RELATED HYPOVENTILATION IN CONDITI 08/25/2018 FERNNDER DO UNIQUE S Ot I10 ESSENTIAL (PRIMARY) HYPERTENSION 08/25/2018 FERNNDER DO UNIQUE S Ot I47.9 PAROXYSMAL TACHYCARDIA, UNSPECIFIED 08/25/2018 ORENDER DO, UNIQUE S Ot I48.91 UNSPECIFIED ATRIAL FIBRILLATION 08/25/2018 FERNNDER DO UNIQUE S Ot R06.83 SNORING 08/25/2018 FERNNDER DO, UNIQUE S Ot R09.02 HYPOXEMIA 08/25/2018 FERNNDER DO UNIQUE S Ot Z79.82 UTILITY TENDER CARDING (CURRENT) USE OF ASPIRIN 08/25/2018 FERNNDMICHELLE FARMER UNIQUE S Ot Z79.899 OTHER UTILITY TENDER CARDING (CURRENT) DRUG THERAPY 08/28/2018 ORENDER DO, UNIQUE S Ot G47.33 OBSTRUCTIVE SLEEP APNEA (ADULT) (PEDIATR 08/28/2018 FERNNDER DO, UNIQUE S Ot G47.36 SLEEP RELATED HYPOVENTILATION IN CONDITI 08/28/2018 ORENDER DO, UNIQUE S Ot I10 ESSENTIAL (PRIMARY) HYPERTENSION 08/28/2018 ORENDER DO, UNIQUE S Ot I47.9 PAROXYSMAL TACHYCARDIA, UNSPECIFIED 08/28/2018 ORENDER DO, UNIQUE S Ot I48.91 UNSPECIFIED ATRIAL FIBRILLATION 08/28/2018 ORENDER DO, UNIQUE S Ot R06.83 SNORING 08/28/2018 FERNNDER DO, UNIQUE S Ot R09.02 HYPOXEMIA 08/28/2018 FERNNDER DO, UNIQUE S Ot Z79.82 SNF (CURRENT) USE OF ASPIRIN 08/28/2018 FERNNDER DO UNIQUE S Ot Z79.899 OTHER SNF (CURRENT) DRUG THERAPY 08/30/2018 Iris SALMON MD Ot E66.01 MORBID (SEVERE) OBESITY DUE TO EXCESS CA 08/30/2018 Iris SALMON MD Ot I11.0 HYPERTENSIVE HEART DISEASE WITH HEART FA 08/30/2018 Iris SALMON MD Ot I34.0 NONRHEUMATIC MITRAL (VALVE) INSUFFICIENC 08/30/2018 Iris SALMON MD Ot I48.1 PERSISTENT ATRIAL FIBRILLATION 08/30/2018 Iris SALMON MD Ot I50.32 CHRONIC DIASTOLIC (CONGESTIVE) HEART QUINTIN 08/30/2018 Iris SALMON MD Ot Z68.41 BODY MASS INDEX (BMI) 40.0-44.9, ADULT 09/06/2018 Iris SALMON MD Ot E66.01 MORBID (SEVERE) OBESITY DUE TO EXCESS CA 09/06/2018 Iris SALMON MD Ot I11.0 HYPERTENSIVE HEART DISEASE WITH HEART FA 09/06/2018 Iris SALMON MD Ot I34.0 NONRHEUMATIC MITRAL (VALVE) INSUFFICIENC 09/06/2018 Iris SALMON MD Ot I48.1 PERSISTENT ATRIAL FIBRILLATION 09/06/2018 Iris SALMON MD Ot I50.32 CHRONIC DIASTOLIC (CONGESTIVE) HEART QUINTIN 09/06/2018 Iris SALMON MD Ot Z68.41 BODY MASS INDEX (BMI) 40.0-44.9, ADULT 10/09/2018 Iris SALMON MD Ot I50.32 CHRONIC DIASTOLIC (CONGESTIVE) HEART QUINTIN 10/09/2018 Iris SALMON MD Ot J90 PLEURAL EFFUSION, NOT ELSEWHERE CLASSIFI 10/09/2018 Iris SALMON MD Ot Z98.890 OTHER SPECIFIED POSTPROCEDURAL STATES 10/11/2018 ORENDER DO, UNIQUE S Ot D64.9 ANEMIA, UNSPECIFIED 10/11/2018 ORENDER DO, UNIQUE S Ot I48.2 CHRONIC ATRIAL FIBRILLATION 10/11/2018 ORENDER DO, UNIQEU S Ot I50.23 ACUTE ON CHRONIC SYSTOLIC (CONGESTIVE) H 10/13/2018 ORENDER DO, UNIQUE S Ot D64.9 ANEMIA, UNSPECIFIED 10/13/2018 ORENDER DO, UNIQUE S Ot I48.2 CHRONIC ATRIAL FIBRILLATION 10/13/2018 ORENDER DO, UNIQUE S Ot I50.23 ACUTE ON CHRONIC SYSTOLIC (CONGESTIVE) H 10/26/2018 Iris SALMON MD Ot I50.32 CHRONIC DIASTOLIC (CONGESTIVE) HEART QUINTIN 10/26/2018 Iris SALMON MD Ot J90 PLEURAL EFFUSION, NOT ELSEWHERE CLASSIFI 10/26/2018 Iris SALMON MD Ot Z98.890 OTHER SPECIFIED POSTPROCEDURAL STATES 11/02/2018 Iris SALMON MD Ot I50.32 CHRONIC DIASTOLIC (CONGESTIVE) HEART QUINTIN 11/02/2018 Iris SALMON MD Ot J90 PLEURAL EFFUSION, NOT ELSEWHERE CLASSIFI 11/02/2018 Iris SALMON MD Ot Z98.890 OTHER SPECIFIED POSTPROCEDURAL STATES 11/02/2018 ORENDER DO, UNIQUE S Ot R53.1 WEAKNESS 11/02/2018 ORENDER DO, UNIQUE S Ot Z95.2 PRESENCE OF PROSTHETIC HEART VALVE 11/24/2018 UNIQUE FRYE DO Ot R53.1 WEAKNESS 11/24/2018 UNIQUE FRYE DO Ot Z95.2 PRESENCE OF PROSTHETIC HEART VALVE 12/01/2018 UNIQUE FRYE DO Ot R53.1 WEAKNESS 12/01/2018 UNIQUE FRYE DO Ot Z95.2 PRESENCE OF PROSTHETIC HEART VALVE Procedures There is no data. Results Test [...] plasma albumin measurement (mass/volume) 4.0 g/dL 3.2-4.5 Whole blood basic metabolic panel - 06/24/18 03:05 Serum or plasma sodium measurement (moles/volume) 143 mmol/L 135-145 Serum or plasma potassium measurement (moles/volume) 3.4 mmol/L 3.6-5.0 Serum or plasma chloride measurement (moles/volume) 101 mmol/L 98-107 Carbon dioxide 29 mmol/L 21-32 Serum or plasma anion gap determination (moles/volume) 13 mmol/L 5-14 Serum or plasma urea nitrogen measurement (mass/volume) 16 mg/dL 7-18 Serum or plasma creatinine measurement (mass/volume) 0.96 mg/dL 0.60-1.30 Serum or plasma urea nitrogen/creatinine mass ratio 17 NRG Serum or plasma creatinine measurement with calculation of estimated glomerular filtration rate 58 NRG Serum or plasma glucose measurement (mass/volume) 98 mg/dL 70-105 Serum or plasma calcium measurement (mass/volume) 9.2 mg/dL 8.5-10.1 Magnesium - 06/24/18 03:05 Magnesium 1.5 mg/dL 1.8-2.4 Complete blood count (CBC) with automated white blood cell (WBC) differential - 06/24/18 03:05 Blood leukocytes automated count (number/volume) 7.2 10*3/uL 4.3-11.0 Blood erythrocytes automated count (number/volume) 4.18 10*6/uL 4.35-5.85 Venous blood hemoglobin measurement (mass/volume) 12.8 g/dL 11.5-16.0 Blood hematocrit (volume fraction) 38 % 35-52 Automated erythrocyte mean corpuscular volume 92 [foz_us] 80-99 Automated erythrocyte mean corpuscular hemoglobin (mass per erythrocyte) 31 pg 25-34 Automated erythrocyte mean corpuscular hemoglobin concentration measurement ( mass/volume) 33 g/dL 32-36 Automated erythrocyte distribution width ratio 15.3 % 10.0-14.5 Automated blood platelet count (count/volume) 226 10*3/uL 130-400 Automated blood platelet mean volume measurement 10.6 [foz_us] 7.4-10.4 Automated blood neutrophils/100 leukocytes 66 % 42-75 Automated blood lymphocytes/100 leukocytes 18 % 12-44 Blood monocytes/100 leukocytes 11 % 0-12 Automated blood eosinophils/100 leukocytes 5 % 0-10 Automated blood basophils/100 leukocytes 1 % 0-10 Blood neutrophils automated count (number/volume) 4.7 10*3 1.8-7.8 Blood lymphocytes automated count (number/volume) 1.3 10*3 1.0-4.0 Blood monocytes automated count (number/volume) 0.8 10*3 0.0-1.0 Automated eosinophil count 0.4 10*3/uL 0.0-0.3 Automated blood basophil count (count/volume) 0.0 10*3/uL 0.0-0.1 RED CELLS LEUKO REDUCED AS1 - 10/11/18 09:30 RED CELLS LEUKO REDUCED AS1 TRANSFUSED 10/11/18 1308 NRG Blood type T Indirect antibody screen panel - 10/11/18 09:30 ABO+Rh group AN NRG Transfusion band number [id number] NRG Blood group antibody screen NEGATIVE NRG Whole blood hemoglobin and hematocrit panel - 10/11/18 13:00 Venous blood hemoglobin measurement (mass/volume) 7.9 g/dL 11.5-16.0 Blood hematocrit (volume fraction) 25 % 35-52 Whole blood hemoglobin and hematocrit panel - 10/11/18 15:30 Venous blood hemoglobin measurement (mass/volume) 8.6 g/dL 11.5-16.0 Blood hematocrit (volume fraction) 27 % 35-52 Encounters ACCT No. Visit Date/Time Discharge Status Pt. Type Provider Facility Loc./Unit Complaint [id number] 07/07/2015 22:29:27 07/07/2015 23:59:59 CLS Outpatient Shivani Chavarria [id number] 07/07/2015 22:18:40 07/07/2015 23:59:59 CLS Outpatient Shivani Chavarria [id number] 07/07/2015 22:16:21 07/07/2015 23:59:59 CLS Outpatient Shivani Chavarria [id number] 12/04/2018 12:49:00 12/04/2018 23:59:59 CLS Outpatient UNIQUE FRYE DO S [facility] REHAB GENERAL WEAKNESS; S/P TRICUSPID VALVE REPAIR [id number] 10/11/2018 08:55:00 10/11/2018 14:35:00 DIS Outpatient UNIQUE FRYE DO [facility] SDC ANEMIA, CHRONIC AFIB, [id number] 10/04/2018 13:55:00 10/04/2018 23:59:59 CLS Outpatient Iris SALMON MD [facility] RAD R06.00 [id number] 08/24/2018 20:35:00 08/25/2018 06:37:00 DIS Outpatient UNIQUE FRYE DO [facility] SLEEP OBSTRUCTIVE SLEEP APENA [id number] 08/02/2018 13:16:00 08/02/2018 23:59:59 CLS Outpatient Iris SALMON MD [facility] RT CHRONIC DIASTOLIC CONGESTIVE HEART FAILURE,HTN [id number] 07/20/2018 08:52:00 07/20/2018 23:59:59 CLS Outpatient Iris SALMON MD [facility] CATH PERSISTENT ATRIAL FIBRILLATION [id number] 06/22/2018 12:10:00 06/24/2018 15:18:00 DIS Inpatient UNIQUE FRYE DO [facility] ICU CHEST PAIN [id number] 06/21/2018 10:29:00 06/21/2018 23:59:59 CLS Outpatient UNIQUE FRYE DO [facility] REHAB CERVICALGIA WITH CEPHALGIA [id number] 06/13/2018 06:48:00 06/13/2018 23:59:59 CLS Outpatient UNIQUE FRYE DO [facility] CARD CHEST PAIN [id number] 05/10/2018 13:40:00 05/10/2018 23:59:59 CLS Outpatient GOLDEN SCHMIDT APRN [facility] RAD ASPNEA,ELEVATED,D- DIMER [id number] 05/08/2018 11:34:00 05/08/2018 23:59:59 CLS Outpatient KARRI FRYE DOLINE S [facility] RAD PNEUMONIA [id number] 03/02/2018 09:27:00 03/02/2018 23:59:59 CLS Outpatient MONAER , UNIQUE S [facility] RAD SCREENING [id number] 01/12/2018 12:53:00 01/12/2018 14:23:00 DIS Outpatient PRIYANKA LATHAM DO [facility] REHAB PRIMARY OA L KNEE [id number] 11/02/2017 09:06:00 11/02/2017 23:59:59 CLS Outpatient GOLDEN SCHMIDT IT APPLICATIONS DEVELOPER [facility] RAD LT KNEE PAIN [id number] 09/05/2017 14:14:00 09/05/2017 23:59:59 CLS Outpatient OTHER, UNLISTED [facility] RAD LT KNEE PAIN [id number] 02/21/2017 09:41:00 02/21/2017 23:59:59 CLS Outpatient IRVING FRYE DOQUELINE S [facility] RAD SCREENING [id number] 05/21/2016 12:14:00 05/21/2016 23:59:59 CLS Outpatient IRVING FRYE DOQUELINE S [facility] LAB NAUSEA,COPHALGIA [id number] 03/03/2016 15:34:00 03/03/2016 23:59:59 CLS Outpatient SHIVANI CHAVARRIA IT APPLICATIONS DEVELOPER [facility] RAD GENERAL ABDOMINAL PAIN [id number] 02/18/2016 08:16:00 02/18/2016 23:59:59 CLS Outpatient SHIVANI CHAVARRIA IT APPLICATIONS DEVELOPER [facility] RAD SCREENING [id number] 10/28/2015 14:21:00 10/28/2015 23:59:59 CLS Outpatient MAYI FARMER, UNIQUE S [facility] RAD MEMORY LOSS, CEPHALGIA [id number] 07/10/2015 09:20:00 07/10/2015 23:59:59 CLS Outpatient JAKE PARK HAZMAT TECHNICIAN [facility] CARD EPIGASTRIC PAIN LIVER CYST [id number] 07/06/2015 19:55:00 07/07/2015 05:00:00 DIS Outpatient UNIQUE FRYE DO S [facility] SLEEP OBSERVED APNEAS CESAR [id number] 07/02/2015 07:36:00 07/02/2015 23:59:59 CLS Outpatient JAKE PARK HAZMAT TECHNICIAN [facility] RAD EPIGASTRIC PAIN [id number] 06/18/2015 20:53:00 06/19/2015 06:00:00 DIS Outpatient UNIQUE FRYE DO S [facility] SLEEP OBSERVED APNEAS SNORING HTN EXCESSIVE DAYTIME SLEE [id number] 05/13/2015 08:31:00 05/13/2015 23:59:59 CLS Outpatient JAKE PARK Iris HAZMAT TECHNICIAN [facility] CARD IRREGULAR HEARTBEAT [id number] 12/24/2013 07:09:00 12/24/2013 23:59:59 CLS Outpatient UNIQUE FRYE DO S [facility] RAD SCREENING [id number] 04/24/2013 15:26:00 04/24/2013 23:59:59 CLS Outpatient MART SANTACRUZ R IT APPLICATIONS DEVELOPER [facility] RAD ABDOMINAL CYST [id number] 04/19/2013 07:53:00 04/19/2013 23:59:59 CLS Outpatient NEETA MART R IT APPLICATIONS DEVELOPER [facility] RAD ABD PAIN [id number] 04/18/2013 09:05:00 04/18/2013 23:59:59 CLS Outpatient NEETA MART R IT APPLICATIONS DEVELOPER [facility] LAB ABD PAIN [id number] 12/06/2018 10:45:00 PEN Preadmit KARRI FRYE DOLINE S [facility] RAD ABDOMINAL PAIN, DIARRHEA [id number] 02/04/2015 08:17:00 Document Registration [id number] 11/29/2012 10:21:00 Document Registration [id number] 05/08/2012 14:21:00 Document Registration [id number] 05/02/2012 08:32:00 Document Registration [id number] 04/14/2012 13:59:00 Document Registration [id number] 11/11/2011 09:51:00 Document Registration [id number] 04/19/2011 08:09:00 Document Registration [id number] 03/01/2011 08:01:00 Document Registration [id number] 02/23/2011 12:41:00 Document Registration 02/201712/05/2018 13:07:15 ACT Outpatient Unique Frye
[2018-12-07] MEDS ORDERED: CATHETER FLUSH 10 ML SYR IV PRN (14:00)
[2018-12-07] MEDS ORDERED: WARF4TAB70 PO (14:37)
[2018-12-07] MEDS ORDERED: WARF1TAB82 PO (14:37)
[2018-12-07] MEDS ORDERED: DOXA2TAB2 PO (14:40)
[2018-12-07] MEDS ORDERED: AMLO10TA6 PO (14:40)
[2018-12-07] MEDS ORDERED: CARV6.252 PO (14:40)
[2018-12-07] MEDS ORDERED: POTA10TA14 PO (14:40)
[2018-12-07] MEDS ORDERED: ATOR40TA70 PO (14:40)
[2018-12-07] MEDS ORDERED: METR-197 PO (14:49)
[2018-12-07] MEDS ORDERED: SPIR25TA5 PO (14:49)
[2018-12-07] MEDS ORDERED: FERR325T18 PO (14:49)
[2018-12-07] MEDS ORDERED: CLOT15CR5 TOP (14:49)
[2018-12-07] MEDS ORDERED: MULT-35 PO (14:49)
[2018-12-07] MEDS ORDERED: CYAN10006 PO (14:49)
[2018-12-07] MEDS ORDERED: FURO40TA4 PO (14:49)
--- NOTE | 2018-12-07 14:53 | NUR ---
SPOKE WITH THE PATIENT ABOUT HIS MEDICATIONS. WE WENT OVER THE EXT MED HX WELL HER LIST, HER LIST IS NOT COMPLETELY UP TO DATE BUT SHE IS AWARE OF THE NECESSARY CHANGES. SHE FILLED COLESTIPOL 11-07-18 HOWEVER STATES IT UPSET HER STOMACH AND SHE IS NOT CURRENTLY TAKING IT. SHE FILLED CARDURA 2MG #180 FOR 90 DAYS 10-24-18 - SHE STATES THIS HAD BEEN DECREASED TO ONCE DAILY THEN ON TUESDAY THIS WEEK IT WAS STOPPED COMPLETELY. HER LASIX WAS 40MG BID AND POTASSIUM 10MEQ BID HOWEVER ON TUESDAY THESE WERE BOTH DECREASED TO ONCE DAILY UNTIL THESE SYMPTOMS RESOLVE. SHE STATES HER CURRENT WARFARIN DOSE IS 4MG SAT SUN AND 5MG TUE,,TUE,TH,FRI. SHE TAKES THE FOLLOWING OTC: IRON DAILY B12 DAILY MTV DAILY ASPIRIN 81MG DAILY
[2018-12-07] MEDS: NS IV 1000 ML 1,000 ML IV SCH ×2 (15:17→22:58)
[2018-12-07] MEDS: metroNIDAZOLE 500 MG (FLAGYL) TAB PO SCH ×2 (15:17→21:23)
[2018-12-07] MEDS: PANTOPRAZOLE 40 MG (PROTONIX) VIAL IV SCH (15:17)
[2018-12-07 16:00] VITALS: BP 121/62
--- NOTE | 2018-12-07 17:57 | History & Physicial ---
History of Present Illness History of Present Illness Reason for visit/HPI This is a 68 year old female who has had diarrhea for 2-3 weeks. She has had stool studies which were negative as well as a negative CT scan of the abdomen and pelvis. She was started on flagyl to cover colitis but was having ongoing diarrhea and was becoming more weak. I wanted to admit her at the beginning of the weak but she refused. She did agree to receiving 1 Liter of IVFs in my office which did make her feel better but at her followup today she was very weak her creatinine was up to 1.52 so it was decided to admit her overnight for IVFs. Date of Admission Dec 07, 2018 at 13:24 Date Seen by a Provider: Dec 07, 2018 Time Seen by a Provider: 12:20 I consulted on this patient on 12/07/18 17:52 Attending Physician Unique Frye DO Admitting Physician Unique Frye DO Consult Allergies and Home Medications Allergies Coded Allergies: No Known Drug Allergies (Unverified , 04/19/11) Home Medications Amlodipine Besylate 10 Mg Tablet, 10 MG PO HS, (Reported) Aspirin 81 Mg Tablet.dr, 81 MG PO DAILY, (Reported) Atorvastatin Calcium 40 Mg Tablet, 40 MG PO 1929, (Reported) Carvedilol 6.25 Mg Tablet, 6.25 MG PO BID, (Reported) Clotrimazole 15 Gm Cream..g., TOP BID, (Reported) APPLY TO SCAR Cyanocobalamin (Vitamin B-12) 1,000 Mcg Tablet, 1,000 MCG PO DAILY, (Reported) Ferrous Sulfate 325 Mg Tablet, 325 MG PO DAILY, (Reported) Furosemide 40 Mg Tablet, 40 MG PO DAILY, (Reported) Metronidazole 500 Mg Tablet, 500 MG PO TID, (Reported) 10 DAY SUPPLY FILLED 12-06-17 Multivitamin 1 Each Tablet, 1 TAB PO DAILY, (Reported) Potassium Chloride 10 Meq Tab.er.prt, 10 MEQ PO DAILY, (Reported) Spironolactone 25 Mg Tablet, 25 MG PO DAILY, (Reported) Warfarin Sodium 4 Mg Tablet, 4 MG PO 2099, (Reported) Warfarin Sodium 1 Mg Tablet, 1 MG PO MoTuWeThFr@2100, (Reported) TAKES AN ADDITIONAL 1MG TABLET ON MON - FRI FOR A TOTAL DOSE OF 5MG 5 DAYS A WEEK Patient Home Medication List Home Medication List Reviewed: Yes Past Lbsolic-Xsijsx-Ynsdux Hx Patient Social History Alcohol Use: Denies Use Recreational Drug Use: No Smoking Status: Never a Smoker Physical Abuse Screen: No Sexual Abuse: No Recent Foreign Travel: No Contact w/other who traveled: No Recent Hopitalizations: No Recent Infectious Disease Expo: No Immunizations Up To Date Date of Pneumonia Vaccine: May 28, 2015 Date of Influenza Vaccine: Aug 24, 2018 Seasonal Allergies Seasonal Allergies: No Surgeries No (BREAST BIOPSY, FOOT SURG, EYE SURG) Respiratory Yes Currently Using CPAP: Yes Currently Using BIPAP: No Cardiovascular Yes (OPEN HEART SURG 02017) Neurological No Genitourinary No Gastrointestinal Yes Diverticulosis Musculoskeletal Yes Arthritis Endocrine History of Endocrine Disorders: No HEENT History of HEENT Disorders: No Cancer No Psychosocial History of Psychiatric Problem: No Integumentary History of Skin or Integumenta: No Blood Transfusions History of Blood Disorders: No Family Medical History Family Hx: Dementia 19 MOTHER Diabetes mellitus G8 BROTHER FH: CABG (coronary artery bypass surgery) 19 FATHER FH: stroke 19 FATHER G8 BROTHER Myocardial infarction 19 FATHER TIAs G8 SISTER Review of Systems Constitutional: weakness EENTM: No see HPI, No no symptoms reported, No ear discharge, No hearing loss, No ear pain, No blurred vision, No double vision, No eye pain, No tearing, No vision loss, No dental problems, No hoarseness, No mouth pain, No mouth swelling , No epistaxis, No nose congestion, No nose pain, No throat pain, No throat swelling, No other Respiratory: dyspnea on exertion, short of breath Cardiovascular: edema Gastrointestinal: diarrhea, loss of appetite, nausea Genitourinary: decreased output Musculoskeletal: muscle weakness Skin: No no symptoms reported, No see HPI, No change in color, No change in hair/nails, No dryness, No hx of skin cancer, No lesions, No lumps, No pruritus , No rash, No other Psychiatric/Neurological: Weakness Physical Exam Vital Signs Vital Signs - First Documented 12/07/18 16:00 Temp 98.4 Pulse 66 Resp 18 B/P (MAP) 121/62 (81) Pulse Ox 100 O2 Delivery Room Air Capillary Refill : Height, Weight, BMI Height: 5'6.00" Weight: 244lbs. 0.5oz. 110.313057pq; 39.4 BMI Method: General Appearance: Moderate Distress HEENT: Normal ENT Inspection Neck: Supple Respiratory: Lungs Clear Cardiovascular: Systolic Murmur, Gallop/S4, Irregularly Irregular Gastrointestinal: Normal Bowel Sounds, Non Tender, Soft Rectal: Deferred Back: No CVA Tenderness Extremity: Non Tender, No Calf Tenderness, No Pedal Edema Neurologic/Psychiatric: Alert, Oriented x3 Skin: Warm/Dry, Pallor Assessment/Plan Assessment and Plan 1. Acute Dehydration with Acute Renal Insufficiency--admit for IVFs 2. Diarrhea--admit and start immodium and monitor 3. Hypertension--resume home meds 4. Chronic Atrial Fibrillation--resume home meds Admission Diagnosis Admission Status: Observation Clinical Quality Measures DVT/VTE Risk/Contraindication: Risk Factor Score Per Nursin RFS Level Per Nursing on Admit: 3=High UNIQUE FRYE DO Dec 07, 2018 17:57
[2018-12-07] MEDS ORDERED: PATIENT MAY USE OWN MEDS, ALL MC SCH (18:00)
[2018-12-07] MEDS ORDERED: ACETAMINOPHEN 325 MG TABLET PO PRN (18:00)
[2018-12-07 20:00] VITALS: BP 117/56
[2018-12-07] MEDS: ATORVASTATIN 40 MG (LIPITOR) TABLET PO SCH (20:10)
[2018-12-07] MEDS ORDERED: warFARin 1 MG (COUMADIN) TAB PO SCH (21:00)
[2018-12-07] MEDS ORDERED: NON-FORMULARY MEDICATION 1 EA EA (Amlodipine Besylate 10 MG) PO SCH (21:00)
[2018-12-07] MEDS ORDERED: NON-FORMULARY MEDICATION 1 EA EA (Warfarin Sodium 4 MG) PO SCH (21:00)
[2018-12-07] MEDS: warFARin 2 MG (COUMADIN) TAB PO SCH (21:23)
[2018-12-07] MEDS: amLODIPine 10 MG (NORVASC) TAB PO SCH (21:23)
[2018-12-07] MEDS: CARVEDILOL 6.25 MG (COREG) TAB PO SCH (21:24)
[2018-12-08 00:40] VITALS: BP 114/4
[2018-12-08 04:44] LABS: BASOPHILS % (AUTO) 0 % (0-10); EOSINOPHILS # (AUTO) 0.2 10^3/uL (0.0-0.3); EOSINOPHILS % (AUTO) 5 % (0-10); HEMATOCRIT 28 % (35-52); HEMOGLOBIN 8.5 G/DL (11.5-16.0); LYMPHOCYTES # (AUTO) 1.1 X 10^3 (1.0-4.0); LYMPHOCYTES % (AUTO) 26 % (12-44); MEAN CORPUSCULAR HEMOGLOBIN 29 PG (25-34); MEAN CORPUSCULAR HGB CONC 31 G/DL (32-36); MEAN CORPUSCULAR VOLUME 94 FL (80-99); MEAN PLATELET VOLUME 9.1 FL (7.4-10.4); MONOCYTES # (AUTO) 0.5 X 10^3 (0.0-1.0); MONOCYTES % (AUTO) 11 % (0-12); NEUTROPHILS # (AUTO) 2.4 X 10^3 (1.8-7.8); NEUTROPHILS % (AUTO) 58 % (42-75); PLATELET COUNT 169 10^3/uL (130-400); RED BLOOD COUNT 2.98 10^6/uL (4.35-5.85); WHITE BLOOD COUNT 4.1 10^3/uL (4.3-11.0)
[2018-12-08 04:55] LABS: INR 3.7 (0.8-1.4)
[2018-12-08 05:08] LABS: ALBUMIN 3.8 GM/DL (3.2-4.5); BILIRUBIN,TOTAL 0.8 MG/DL (0.1-1.0); CALCIUM 9.2 MG/DL (8.5-10.1); CREATININE SERUM 1.44 MG/DL (0.60-1.30); POTASSIUM 3.9 MMOL/L (3.6-5.0); TOTAL PROTEIN 6.5 GM/DL (6.4-8.2)
[2018-12-08] MEDS: metroNIDAZOLE 500 MG (FLAGYL) TAB PO SCH ×3 (06:35→22:39)
[2018-12-08] MEDS: NS IV 1000 ML 1,000 ML IV SCH ×4 (06:35→22:39)
[2018-12-08 08:00] VITALS: BP 113/58
[2018-12-08] MEDS: ASPIRIN E.C. 81 MG (ECOTRIN) TAB PO SCH (09:06)
[2018-12-08] MEDS: PANTOPRAZOLE 40 MG (PROTONIX) VIAL IV SCH (09:06)
[2018-12-08] MEDS: CARVEDILOL 6.25 MG (COREG) TAB PO SCH ×2 (09:06→20:54)
--- NOTE | 2018-12-08 14:29 | Progress Note (SOAP) ---
Subjective Date Seen by a Provider: Dec 08, 2018 Time Seen by a Provider: 14:26 Subjective/Events-last exam Fwup dehydration with acute renal insufficiency, diarrhea, Hypertension, Chronic Atrial Fibrillation, chronic anemia. Feeling a little better but still very weak. No BM since admission. Objective Exam Vital Signs Date Time Temp Pulse Resp B/P (MAP) Pulse Ox O2 Delivery O2 Flow Rate FiO2 12/08/18 08:00 98.5 60 16 113/58 (76) 98 Room Air 12/08/18 08:00 Nasal Cannula 3.00 12/08/18 00:40 97.7 61 18 114/4 (40) 98 NIV CPAP 3.00 12/07/18 23:30 Nasal Cannula 3.00 12/07/18 20:00 98.2 61 18 117/56 (76) 97 Room Air 12/07/18 20:00 Nasal Cannula 3.00 12/07/18 16:00 98.4 66 18 121/62 (81) 100 Room Air I & O 12/08/18 07:00 Intake Total 810 ml Output Total 650 ml Balance 160 ml Capillary Refill : Less Than 3 Seconds General Appearance: No Apparent Distress Neck: Supple Respiratory: Lungs Clear Cardiovascular: Systolic Murmur, Gallop/S4, Irregularly Irregular Gastrointestinal: normal bowel sounds, non tender, soft Extremity: Non Tender, No Calf Tenderness, No Pedal Edema Neurologic/Psychiatric: Alert, Oriented x3 Skin: Pallor Results Lab Laboratory Tests 12/08/18 04:35: White Blood Count 4.1L, Red Blood Count 2.98L, Hemoglobin 8.5L, Hematocrit 28L, Mean Corpuscular Volume 94, Mean Corpuscular Hemoglobin 29, Mean Corpuscular Hemoglobin Concent 31L, Red Cell Distribution Width 15.0H, Platelet Count 169, Mean Platelet Volume 9.1, Neutrophils (%) (Auto) 58, Lymphocytes (%) (Auto) 26, Monocytes (%) (Auto) 11, Eosinophils (%) (Auto) 5, Basophils (%) (Auto) 0, Neutrophils # (Auto) 2.4, Lymphocytes # (Auto) 1.1, Monocytes # (Auto) 0.5, Eosinophils # (Auto) 0.2, Basophils # (Auto) 0.0, Prothrombin Time 37.0H, INR Comment 3.7H, Sodium Level 142, Potassium Level 3.9, Chloride Level 107, Carbon Dioxide Level 24, Anion Gap 11, Blood Urea Nitrogen 19H, Creatinine 1.44H, Estimat Glomerular Filtration Rate 36, BUN/Creatinine Ratio 13, Glucose Level 86 , Calcium Level 9.2, Corrected Calcium 9.4, Total Bilirubin 0.8, Aspartate Amino Transf (AST/SGOT) 36H, Alanine Aminotransferase (ALT/SGPT) 25, Alkaline Phosphatase 73, Total Protein 6.5, Albumin 3.8 Assessment/Plan Assessment/Plan Assess & Plan/Chief Complaint 1. Acute Dehydration with acute renal insufficiency--continue IVFs and BUN/Cr in AM 2. Diarrhea--currently resolved--will see how does today and through tomorrow 3. Hypertension--home meds resumed 4. Chronic Atrial Fibrillation--INR elevated so will decrease coumadin dose and repeat PT/INR in AM 5. Chronic Anemia--on iron, recheck CBC in AM Clinical Quality Measures Admission Status Admission Dx 1. Acute Dehydration with Acute Renal Insufficiency--admit for IVFs 2. Diarrhea--admit and start immodium and monitor 3. Hypertension--resume home meds 4. Chronic Atrial Fibrillation--resume home meds DVT/VTE Risk/Contraindication: Risk Factor Score Per Nursin RFS Level Per Nursing on Admit: 3=High CAPO SEE DO Dec 08, 2018 14:29
[2018-12-08 16:00] VITALS: BP 118/61
[2018-12-08] MEDS: amLODIPine 10 MG (NORVASC) TAB PO SCH (20:54)
[2018-12-08] MEDS: ATORVASTATIN 40 MG (LIPITOR) TABLET PO SCH (20:54)
[2018-12-08] MEDS: warFARin 2 MG (COUMADIN) TAB PO SCH (20:54)
[2018-12-08 23:27] VITALS: BP 118/64
[2018-12-09] MEDS: NS IV 1000 ML 1,000 ML IV SCH (06:02)
[2018-12-09] MEDS: metroNIDAZOLE 500 MG (FLAGYL) TAB PO SCH (06:02)
[2018-12-09 07:42] LABS: BASOPHILS % (AUTO) 1 % (0-10); EOSINOPHILS # (AUTO) 0.2 10^3/uL (0.0-0.3); EOSINOPHILS % (AUTO) 5 % (0-10); HEMATOCRIT 26 % (35-52); HEMOGLOBIN 7.9 G/DL (11.5-16.0); LYMPHOCYTES # (AUTO) 0.9 X 10^3 (1.0-4.0); LYMPHOCYTES % (AUTO) 23 % (12-44); MEAN CORPUSCULAR HEMOGLOBIN 29 PG (25-34); MEAN CORPUSCULAR HGB CONC 31 G/DL (32-36); MEAN CORPUSCULAR VOLUME 94 FL (80-99); MEAN PLATELET VOLUME 9.5 FL (7.4-10.4); MONOCYTES # (AUTO) 0.5 X 10^3 (0.0-1.0); MONOCYTES % (AUTO) 12 % (0-12); NEUTROPHILS # (AUTO) 2.3 X 10^3 (1.8-7.8); NEUTROPHILS % (AUTO) 59 % (42-75); PLATELET COUNT 158 10^3/uL (130-400); RED BLOOD COUNT 2.73 10^6/uL (4.35-5.85); RED CELL DISTRIBUTION WIDTH 15.1 % (10.0-14.5); WHITE BLOOD COUNT 3.9 10^3/uL (4.3-11.0)
[2018-12-09 07:54] LABS: ALBUMIN 3.6 GM/DL (3.2-4.5); BILIRUBIN,TOTAL 0.6 MG/DL (0.1-1.0); CALCIUM 8.8 MG/DL (8.5-10.1); CREATININE SERUM 1.18 MG/DL (0.60-1.30); POTASSIUM 4.1 MMOL/L (3.6-5.0); TOTAL PROTEIN 6.1 GM/DL (6.4-8.2)
[2018-12-09 07:59] LABS: INR 4.9 (0.8-1.4)
[2018-12-09 08:02] LABS: PROTHROMBIN TIME PATIENT 46.1 SEC (12.2-14.7)
[2018-12-09 08:26] VITALS: BP 124/60
[2018-12-09] MEDS: ASPIRIN E.C. 81 MG (ECOTRIN) TAB PO SCH (08:43)
[2018-12-09] MEDS ORDERED: POLYETHYLENE GLYCOL 17 GM (MIRALAX) PACK PO NR (08:45)
[2018-12-09] MEDS ORDERED: PANTOPRAZOLE 40 MG (PROTONIX) TAB PO SCH (09:00)
[2018-12-09] MEDS: CARVEDILOL 6.25 MG (COREG) TAB PO SCH (09:14)
[2018-12-09] MEDS ORDERED: LIDOCAINE UROJET 2% GEL 10 ML PKG ONE (10:55)
[2018-12-09] MEDS ORDERED: POLYETHYLENE GLYCOL 17 GM (MIRALAX) PACK PO ONE (12:00)
[2018-12-09] MEDS ORDERED: OMEP40CA36 PO (12:07)
--- NOTE | 2018-12-09 12:08 | Discharge Summary-Hospitalist ---
Diagnosis/Chief Complaint Date of Admission Dec 07, 2018 at 13:24 Date of Discharge Discharge Date: Dec 09, 2018 Discharge Diagnosis (1) Renal failure Status: Resolved (2) Warfarin toxicity Status: Acute (3) Anemia Status: Chronic (4) Dehydration Status: Resolved (5) Sleep apnea Status: Chronic (6) Obesity Status: Chronic (7) Debility Status: Chronic (8) Weakness Status: Acute (9) Atrial fibrillation Status: Chronic Discharge Summary Discharge Physical Exam Allergies: Coded Allergies: No Known Drug Allergies (Unverified , 04/19/11) Vitals & I&Os Vital Signs Date Time Temp Pulse Resp B/P (MAP) Pulse Ox O2 Delivery O2 Flow Rate FiO2 12/09/18 08:26 98.2 61 17 124/60 (81) 98 Room Air 12/09/18 08:20 3.00 General Appearance: No Apparent Distress, WD/WN, Obese Respiratory: Chest Non Tender, Lungs Clear, Normal Breath Sounds, No Accessory Muscle Use, No Respiratory Distress Cardiovascular: No Edema, No Gallop, No JVD, No Murmur, Normal Peripheral Pulses, Irregularly Irregular Neurologic/Psychiatric: Alert, Oriented x3, No Motor/Sensory Deficits, Normal Mood/Affect Hospital Course Hospital course: Patient had an uneventful hospital course she was admitted for acute renal failure due to severe dehydration from severe diarrhea and diuretic use. She was placed on IV fluids and provided supportive care. All of her acute illness issues resolved at time of discharge but she was supratherapeutic on her INR so she was told to hold her warfarin Tuesday and Tuesday and have an INR checked by primary care provider on Tuesday. No other medicine changes were made other than what primary care provider specified at time of discharge. Labs (last 24 hrs) Laboratory Tests 12/09/18 07:29: White Blood Count 3.9L, Red Blood Count 2.73L, Hemoglobin 7.9L, Hematocrit 26L, Mean Corpuscular Volume 94, Mean Corpuscular Hemoglobin 29, Mean Corpuscular Hemoglobin Concent 31L, Red Cell Distribution Width 15.1H, Platelet Count 158, Mean Platelet Volume 9.5, Neutrophils (%) (Auto) 59, Lymphocytes (%) (Auto) 23, Monocytes (%) (Auto) 12, Eosinophils (%) (Auto) 5, Basophils (%) (Auto) 1, Neutrophils # (Auto) 2.3, Lymphocytes # (Auto) 0.9L, Monocytes # (Auto) 0.5, Eosinophils # (Auto) 0.2, Basophils # (Auto) 0.0, Prothrombin Time 46.1*H, INR Comment 4.9H, Sodium Level 140, Potassium Level 4.1, Chloride Level 110H, Carbon Dioxide Level 21, Anion Gap 9, Blood Urea Nitrogen 15, Creatinine 1.18, Estimat Glomerular Filtration Rate 46, BUN/Creatinine Ratio 13, Glucose Level 90 , Calcium Level 8.8, Corrected Calcium 9.1, Total Bilirubin 0.6, Aspartate Amino Transf (AST/SGOT) 29, Alanine Aminotransferase (ALT/SGPT) 21, Alkaline Phosphatase 69, Total Protein 6.1L, Albumin 3.6 Patient resulted labs reviewed. Pending Labs Laboratory Tests 12/09/18 07:29: White Blood Count 3.9, Red Blood Count 2.73, Hemoglobin 7.9, Hematocrit 26, Mean Corpuscular Volume 94, Mean Corpuscular Hemoglobin 29, Mean Corpuscular Hemoglobin Concent 31, Red Cell Distribution Width 15.1, Platelet Count 158, Mean Platelet Volume 9.5, Neutrophils (%) (Auto) 59, Lymphocytes (%) (Auto) 23, Monocytes (%) (Auto) 12, Eosinophils (%) (Auto) 5, Basophils (%) (Auto) 1, Neutrophils # (Auto) 2.3, Lymphocytes # (Auto) 0.9, Monocytes # (Auto) 0.5, Eosinophils # (Auto) 0.2, Basophils # (Auto) 0.0, Prothrombin Time 46.1, INR Comment 4.9, Sodium Level 140, Potassium Level 4.1, Chloride Level 110, Carbon Dioxide Level 21, Anion Gap 9, Blood Urea Nitrogen 15, Creatinine 1.18, Estimat Glomerular Filtration Rate 46, BUN/Creatinine Ratio 13, Glucose Level 90, Calcium Level 8.8, Corrected Calcium 9.1, Total Bilirubin 0.6, Aspartate Amino Transf (AST/SGOT) 29, Alanine Aminotransferase (ALT/SGPT) 21, Alkaline Phosphatase 69, Total Protein 6.1, Albumin 3.6 Discussion & Recommendations Discharge Planning: <30 minutes discharge planning Discharge Home Medications: Active Scripts Active Omeprazole 40 Mg Capsule.dr 40 Mg PO DAILY Reported Ferrous Sulfate 325 Mg Tablet 325 Mg PO DAILY Metronidazole 500 Mg Tablet 500 Mg PO TID 10 Days 10 DAY SUPPLY FILLED 1-9-18 Clotrimazole 15 Gm Cream..g. TOP BID APPLY TO SCAR Amlodipine Besylate 10 Mg Tablet 10 Mg PO HS Carvedilol 6.25 Mg Tablet 6.25 Mg PO BID Atorvastatin Calcium 40 Mg Tablet 40 Mg PO 1929 Aspirin EC (Aspirin) 81 Mg Tablet.dr 81 Mg PO DAILY Instructions to patient/family Please see electronic discharge instructions given to patient. Clinical Quality Measures DVT/VTE Risk/Contraindication: Risk Factor Score Per Nursin RFS Level Per Nursing on Admit: 3=High Problem Qualifiers (1) Renal failure: Renal failure chronicity: acute Acute renal failure type: unspecified Qualified Codes: N17.9 - Acute kidney failure, unspecified (2) Warfarin toxicity: Encounter type: initial encounter (3) Anemia: Anemia type: unspecified type Qualified Codes: D64.9 - Anemia, unspecified (4) Sleep apnea: Sleep apnea type: unspecified type Qualified Codes: G47.30 - Sleep apnea, unspecified (5) Obesity: Obesity type: due to excess calories Obesity classification: adult class 3 ( BMI >= 40) Body mass index: BMI 40.0-44.9 (6) Atrial fibrillation: Atrial fibrillation type: chronic Qualified Codes: I48.2 - Chronic atrial fibrillation ISAIAH ESCALONA DO Dec 09, 2018 12:08
== END 2018-12-09 12:07 | disposition home or self-care (01) ==
LOC: 4TH 13:20 → UNDOADMOB 13:24 → 4TH 13:24 → UNDODISOB 12-09 12:25
PROVIDERS: ADMIT Family Medicine; ATTEND Family Medicine
DX: E86.0 Dehydration (principal); R19.7 Diarrhea, unspecified; I10 Essential (primary) hypertension; N17.9 Acute kidney failure, unspecified; D64.9 Anemia, unspecified; E66.9 Obesity, unspecified; R53.1 Weakness; I48.2 Chronic atrial fibrillation; G47.30 Sleep apnea, unspecified; Z79.82 Long term (current) use of aspirin; Z79.899 Other long term (current) drug therapy; Z68.41 Body mass index [BMI] 40.0-44.9, adult; Z79.01 Long term (current) use of anticoagulants
CPT/HCPCS: 36415; 80053; 85025; 85610

== ENCOUNTER 2019-01-02 15:04 | Outpatient (RCR) | payer MEDICARE ==
[~2019-01-02 15:04] MED LIST changes: +AMLO10TA7 PO; -AMLO5TAB7 PO; +AMLO5TAB9 PO; +ATOR40TA70 PO; +CARV6.252 PO; +CLOT15CR5 TOP; +CYAN10006 PO; +DOXA2TAB2 PO; +FERR325T18 PO; +FURO40TA4 PO; +METR-145 PO; +MULT-35 PO; +OMEP40CA36 PO; +POTA10TA14 PO; +SPIR25TA5 PO; +WARF1TAB82 PO; +WARF4TAB70 PO
== END 2019-01-04 | disposition home or self-care (01) ==
PROVIDERS: ATTEND Family Medicine
DX: R53.1 Weakness (principal); Z95.2 Presence of prosthetic heart valve

== ENCOUNTER → 2019-03-27 | Outpatient (CLI) | payer MEDICARE ==
--- NOTE | 2019-03-27 13:24 | Diagnostic Imaging Report ---
PROCEDURE: US Renal Bilateral. TECHNIQUE: Multiple real-time grayscale images were obtained over the kidneys in various projections bilaterally. INDICATION: Chronic kidney disease. FINDINGS: Right kidney measures 7.8 x 4.5 x 5.6 image. Left kidney measures 10.2 x 4.3 x 4.1 cm. Both kidneys demonstrate a relatively normal renal cortical thickness and echogenicity. There is no hydronephrosis, calculi or mass. Bladder is normal. Right ureteral jet was present. Left ureteral jet was not seen. Bladder is otherwise unremarkable. IVC is not imaged. IMPRESSION: Unremarkable sonographic appearance of the kidney apart from some atrophy of the right kidney. Left ureteral jet was not visualized. Dictated by: Dictated on workstation # [id number]
== END ==
LOC: RAD 12:23
PROVIDERS: ATTEND Internal Medicine Nephrology
DX: N18.3 Chronic kidney disease, stage 3 (moderate) (principal)
CPT/HCPCS: 76770

== ENCOUNTER 2019-04-06 11:23 | Outpatient (RCR) | payer MEDICARE | END 2019-04-10 | disposition home or self-care (01) | LOC: CR 11:23 | PROVIDERS: ATTEND Family Medicine | DX: Z48.812 Encounter for surgical aftercare following surgery on the circulatory system (principal); Z95.2 Presence of prosthetic heart valve | CPT/HCPCS: 93798 ==

== ENCOUNTER 2019-04-13 11:26 | Outpatient (RCR) | payer MEDICARE ==
[~2019-04-13 11:26] MED LIST changes: +CYAN-41 PO; -CYAN10006 PO
== END 2019-07-10 | disposition home or self-care (01) ==
LOC: CR 11:26
PROVIDERS: ATTEND Family Medicine
DX: Z48.812 Encounter for surgical aftercare following surgery on the circulatory system (principal); Z95.2 Presence of prosthetic heart valve
CPT/HCPCS: 93798

== ENCOUNTER → 2019-06-20 | Outpatient (RCR) | payer MEDICARE ==
[~2019-06-20] MED LIST changes: -CYAN-41 PO; +CYAN10006 PO
== END | disposition home or self-care (01) ==
LOC: CR3 05-21 11:00
PROVIDERS: ATTEND Family Medicine
DX: Z29.8 Encounter for other specified prophylactic measures (principal)

== ENCOUNTER 2019-07-18 10:53 | Outpatient (RCR) | payer MEDICARE ==
[~2019-07-18 10:53] MED LIST changes: +CYAN-41 PO; -CYAN10006 PO
== END 2019-07-22 | disposition home or self-care (01) ==
LOC: CR3 10:53
PROVIDERS: ATTEND Family Medicine
DX: Z29.8 Encounter for other specified prophylactic measures (principal)

== ENCOUNTER 2019-08-08 05:41 | Outpatient (CLI) | payer MEDICARE ==
[~2019-08-08] VITALS: Ht 167.7 cm; Wt 111.7 kg
[2019-08-08] MEDS ORDERED: AMLO2.5T4 PO (13:38)
[2019-08-08] MEDS ORDERED: WARF-48 PO (13:43)
[2019-08-08] MEDS ORDERED: BUME1TAB8 PO ×2 (13:43)
[2019-08-08] MEDS ORDERED: POTA10TA6 PO (13:43)
[2019-08-08] MEDS ORDERED: WARF7.5T49 PO (13:43)
[2019-08-08] MEDS ORDERED: FAMO20TA3 PO (13:43)
== END 2019-08-08 13:47 | disposition home or self-care (01) ==
LOC: PREOP 05:41
PROVIDERS: ATTEND Specialist
DX: Z01.818 Encounter for other preprocedural examination (principal)

== ENCOUNTER 2019-08-10 07:58 | Day surgery (SDC) | payer MEDICARE ==
[~2019-08-10] VITALS: Ht 170.2 cm; Wt 111.7 kg
[~2019-08-10 07:58] MED LIST changes: +AMLO2.5T4 PO; +BUME1TAB8 PO; +FAMO20TA3 PO; +POTA10TA6 PO; +WARF-48 PO; +WARF7.5T49 PO
[2019-08-10] MEDS ORDERED: LIDOCAINE PF 1% 2 ML AMP IR PRN (08:00)
[2019-08-10] MEDS ORDERED: POVIDONE (BETADINE) OPHTH SOLN 5% 30 ML OP ONE (08:00)
[2019-08-10] MEDS ORDERED: MOXIFLOXACIN OPHTH SOLN 5 MG/ML 0.3 ML SYRINGE OP ONE (08:00)
[2019-08-10] MEDS ORDERED: TIMOLOL MALEATE 0.5% 5 ML (TIMOPTIC) BTL OU PRN (08:00)
[2019-08-10 08:10] VITALS: BP 128/62
[2019-08-10] MEDS: TETRACAINE 0.5% OPHTH SOLN 4 ML BTL (SINGLE DOSE ONLY) OU PRN ×4 (08:17→08:40)
[2019-08-10] MEDS: CYCLOPENTOLATE 1% (CYCLOGYL) 2 ML DROPS OP SCH ×3 (08:26→08:40)
[2019-08-10] MEDS: PHENYLEPHRINE 10% OPHTH (NEO-SYN) 5 ML BTL OU SCH ×3 (08:26→08:40)
[2019-08-10] MEDS ORDERED: MIDAZOLAM 2 MG/2 ML (VERSED) VIAL ONE (08:55)
--- NOTE | 2019-08-10 08:55 | Ophthalmologist Pre-Op Note ---
Pre-Operative Progress Note H&P Reviewed The H&P was reviewed, patient examined and no changes noted. Date H&P Reviewed: Aug 10, 2019 Time H&P Reviewed: 08:55 Pre-Op Dx Cataract, Left Eye DONALDO CANSECO MD Aug 10, 2019 08:55
--- NOTE | 2019-08-10 09:22 | Ophthalmology Operative Report ---
Cataract removal/placement IOL PREOPERATIVE DIAGNOSIS: Cataract Left Eye POSTOPERATIVE DIAGNOSIS: Cataract Left Eye PROCEDURE: Cataract removal and placement of posterior chamber implant, left eye SURGEON: Mick Canseco ANESTHESIA: Topical with sedation COMPLICATIONS: None ESTIMATED BLOOD LOSS: Minimal DESCRIPTION OF PROCEDURE: After proper informed consent was obtained, the patient, a 69 female, was taken to the Operating Room and the left eye was anesthetized with tetracaine. The left eye was then prepped and draped in the usual manner. A wire lid speculum was placed. A paracentesis was made at the left hand position. Preservative free lidocaine was injected into the anterior chamber followed by viscoelastic. A clear corneal incision was made in the temporal position. A capsulorrhexis was preformed and the central nuclear and cortical material were removed. The posterior capsule was polished and an Swapnil 18.5 [id number] was placed into the capsular bag. The residual viscoelastic was aspirated and balanced saline solution was injected into the anterior chamber. Moxifloxacin was injected into the anterior chamber. The wound was checked and found to be water tight. The patient tolerated the procedure well without complications. MICK CANSECO MD Aug 10, 2019 09:21
[2019-08-10 09:30] VITALS: BP 142/78
[2019-08-10] MEDS ORDERED: acetaZOLAMIDE ER 500 MG CAP (DIAMOX SEQUELS) PO ONE (10:00)
== END 2019-08-10 09:30 | disposition home or self-care (01) ==
LOC: SDC 07:58
PROVIDERS: ATTEND Specialist
DX: H25.12 Age-related nuclear cataract, left eye (principal); H40.9 Unspecified glaucoma; E78.5 Hyperlipidemia, unspecified; K21.9 Gastro-esophageal reflux disease without esophagitis; I48.1 Persistent atrial fibrillation; I10 Essential (primary) hypertension; R06.02 Shortness of breath; R03.0 Elevated blood-pressure reading, without diagnosis of hypertension; R10.9 Unspecified abdominal pain; Z95.1 Presence of aortocoronary bypass graft; Z79.899 Other long term (current) drug therapy; Z99.89 Dependence on other enabling machines and devices; Z98.51 Tubal ligation status; Z79.01 Long term (current) use of anticoagulants; Z83.518 Family history of other specified eye disorder; Z82.49 Family history of ischemic heart disease and other diseases of the circulatory system; Z83.3 Family history of diabetes mellitus

== ENCOUNTER → 2019-08-22 | Outpatient (RCR) | payer MEDICARE | END | disposition home or self-care (01) | LOC: CR3 07-23 11:00 | PROVIDERS: ATTEND Family Medicine | DX: Z29.8 Encounter for other specified prophylactic measures (principal) ==

== ENCOUNTER 2019-08-29 05:58 | Outpatient (CLI) | payer MEDICARE ==
[~2019-08-29] VITALS: Ht 167.7 cm; Wt 111.7 kg
== END 2019-08-30 10:11 | disposition home or self-care (01) ==
LOC: PREOP 05:58
PROVIDERS: ATTEND Specialist
DX: Z01.818 Encounter for other preprocedural examination (principal)

== ENCOUNTER 2019-08-31 09:16 | Day surgery (SDC) | payer MEDICARE ==
[~2019-08-31] VITALS: Ht 167 cm; Wt 111.7 kg
[2019-08-31 09:23] VITALS: BP 155/102
[2019-08-31] MEDS ORDERED: POVIDONE (BETADINE) OPHTH SOLN 5% 30 ML OP ONE (09:30)
[2019-08-31] MEDS ORDERED: TIMOLOL MALEATE 0.5% 5 ML (TIMOPTIC) BTL OU PRN (09:30)
[2019-08-31] MEDS ORDERED: MOXIFLOXACIN OPHTH SOLN 5 MG/ML 0.3 ML SYRINGE OP ONE (09:30)
[2019-08-31] MEDS ORDERED: LIDOCAINE PF 1% 2 ML AMP IR PRN (09:30)
[2019-08-31] MEDS: TETRACAINE 0.5% OPHTH SOLN 4 ML BTL (SINGLE DOSE ONLY) OU PRN ×4 (09:37→10:05)
[2019-08-31] MEDS: PHENYLEPHRINE 10% OPHTH (NEO-SYN) 5 ML BTL OU SCH ×3 (09:46→10:05)
[2019-08-31] MEDS: CYCLOPENTOLATE 1% (CYCLOGYL) 2 ML DROPS OP SCH ×3 (09:46→10:05)
[2019-08-31] MEDS ORDERED: MIDAZOLAM 2 MG/2 ML (VERSED) VIAL ONE (10:15)
--- NOTE | 2019-08-31 10:16 | Ophthalmologist Pre-Op Note ---
Pre-Operative Progress Note H&P Reviewed The H&P was reviewed, patient examined and no changes noted. Date H&P Reviewed: Aug 31, 2019 Time H&P Reviewed: 10:16 Pre-Op Dx Cataract, Right Eye DONALDO CANSECO MD Aug 31, 2019 10:16
--- NOTE | 2019-08-31 10:45 | Ophthalmology Operative Report ---
Cataract removal/placement IOL PREOPERATIVE DIAGNOSIS: Cataract Right Eye POSTOPERATIVE DIAGNOSIS: Cataract Right Eye PROCEDURE: Cataract removal and placement of posterior chamber implant, right eye SURGEON: Mick Canseco ANESTHESIA: Topical with sedation COMPLICATIONS: None ESTIMATED BLOOD LOSS: Minimal DESCRIPTION OF PROCEDURE: After proper informed consent was obtained, the patient, a 69 female, was taken to the Operating Room and the right eye was anesthetized with tetracaine. The right eye was then prepped and draped in the usual manner. A wire lid speculum was placed. A paracentesis was made at the left hand position. Preservative free lidocaine was injected into the anterior chamber followed by viscoelastic. A clear corneal incision was made in the temporal position. A capsulorrhexis was preformed and the central nuclear and cortical material were removed. The posterior capsule was polished and Swapnil [id number] 18.5 IOL was placed into the capsular bag. The residual viscoelastic was aspirated and balanced saline solution was injected into the anterior chamber. Moxifloxacin was injected into the anterior chamber. The wound was checked and found to be water tight. The patient tolerated the procedure well without complications. MICK CANSECO MD Aug 31, 2019 10:45
[2019-08-31 10:52] VITALS: BP 135/65
[2019-08-31] MEDS ORDERED: acetaZOLAMIDE ER 500 MG CAP (DIAMOX SEQUELS) PO ONE (11:00)
--- NOTE | 2019-08-31 12:36 | Anesthesia-General Post-Op ---
MAC Patient Condition Mental Status/LOC: Same as Preop Cardiovascular: Satisfactory Nausea/Vomiting: Absent Respiratory: Satisfactory Pain: Controlled Complications: Absent Post Op Complications Complications None Follow Up Care/Instructions Patient Instructions None needed. Anesthesiology Discharge Order Discharge Order Patient is doing well, no complaints, stable vital signs, no apparent adverse anesthesia problems. No complications reported per nursing. LEILANI CHEN CRNA Aug 31, 2019 12:36
== END 2019-08-31 10:52 | disposition home or self-care (01) ==
LOC: SDC 09:16
PROVIDERS: ATTEND Specialist
DX: H25.11 Age-related nuclear cataract, right eye (principal); I10 Essential (primary) hypertension; I48.91 Unspecified atrial fibrillation; K21.9 Gastro-esophageal reflux disease without esophagitis; Z95.1 Presence of aortocoronary bypass graft; Z83.518 Family history of other specified eye disorder; Z82.49 Family history of ischemic heart disease and other diseases of the circulatory system; Z83.3 Family history of diabetes mellitus; Z79.899 Other long term (current) drug therapy

== ENCOUNTER → 2019-09-17 | Outpatient (CLI) | payer MEDICARE ==
[~2019-09-17] MED LIST changes: -METO-395 PO; +MTP100TCR PO; +OMEP40CA27 PO; -OMEP40CA36 PO; +RT-ALBUTEROL SULF 2.5 MG/3 ML PRE-MIX VIAL INH ONE
== END ==
LOC: RT 12:02
PROVIDERS: ATTEND Nurse Practitioner Family
DX: I48.19 Other persistent atrial fibrillation (principal); E66.01 Morbid (severe) obesity due to excess calories; G47.33 Obstructive sleep apnea (adult) (pediatric); J98.4 Other disorders of lung
CPT/HCPCS: 94060; 94640; 94726; 94729

== ENCOUNTER 2019-09-21 11:09 | Outpatient (RCR) | payer MEDICARE ==
[~2019-09-21 11:09] MED LIST changes: +METO-395 PO; -MTP100TCR PO; -OMEP40CA27 PO; +OMEP40CA36 PO; -RT-ALBUTEROL SULF 2.5 MG/3 ML PRE-MIX VIAL INH ONE
== END 2019-09-23 | disposition home or self-care (01) ==
LOC: CR3 11:09
PROVIDERS: ATTEND Family Medicine
DX: Z29.8 Encounter for other specified prophylactic measures (principal)

== ENCOUNTER → 2019-10-24 | Outpatient (RCR) | payer MEDICARE | END | disposition home or self-care (01) | LOC: CR3 09-24 11:16 | PROVIDERS: ATTEND Family Medicine | DX: Z29.8 Encounter for other specified prophylactic measures (principal) ==

== ENCOUNTER 2019-11-26 11:22 | Outpatient (RCR) | payer MEDICARE | END 2019-11-28 | disposition home or self-care (01) | LOC: CR3 11:22 | PROVIDERS: ATTEND Family Medicine | DX: I08.1 Rheumatic disorders of both mitral and tricuspid valves (principal); Z29.8 Encounter for other specified prophylactic measures ==

== ENCOUNTER → 2019-12-14 | Outpatient (CLI) | payer MEDICARE ==
[~2019-12-14] MED LIST changes: -METO-395 PO; +MTP100TCR PO; +OMEP40CA27 PO; -OMEP40CA36 PO
--- NOTE | 2019-12-14 11:56 | Diagnostic Imaging Report ---
INDICATION: Abdominal pain. COMPARISON: 12/06/2018 TECHNIQUE: Single radiograph of abdomen dated 12/14/2019. FINDINGS: Gas and stool are identified within the colon, including extending into the lower pelvis. No dilated loops of small bowel. No differential air-fluid levels. No free air. Multiple phleboliths within the lower pelvis. Calcified uterine fibroid is noted within the left pelvis. Scattered osseous degenerative changes without acute osseous abnormality. IMPRESSION: No acute abnormality. Small calcified uterine fibroid. Dictated by: Dictated on workstation # [id number]
== END ==
LOC: RAD 10:49
PROVIDERS: ATTEND Nurse Practitioner Family
DX: D25.9 Leiomyoma of uterus, unspecified (principal)
CPT/HCPCS: 74018

== ENCOUNTER 2019-12-26 11:43 | Outpatient (RCR) | payer MEDICARE | END 2019-12-30 | disposition home or self-care (01) | LOC: CR3 11:43 | PROVIDERS: ATTEND Family Medicine | DX: I08.1 Rheumatic disorders of both mitral and tricuspid valves (principal); Z29.8 Encounter for other specified prophylactic measures ==

== ENCOUNTER 2020-01-28 11:19 | Outpatient (RCR) | payer MEDICARE | END 2020-01-30 | disposition home or self-care (01) | LOC: CR3 11:19 | PROVIDERS: ATTEND Family Medicine | DX: I08.1 Rheumatic disorders of both mitral and tricuspid valves (principal); Z29.8 Encounter for other specified prophylactic measures ==

== ENCOUNTER 2020-02-06 11:02 | Outpatient (RCR) | payer MEDICARE | END 2020-03-05 | disposition home or self-care (01) | LOC: CR3 11:02 | PROVIDERS: ATTEND Family Medicine | DX: Z29.8 Encounter for other specified prophylactic measures (principal) ==

== ENCOUNTER → 2020-06-30 | Outpatient (CLI) | payer MEDICARE ==
[~2020-06-30] MED LIST changes: +CLOT15CR28 TOP; -CLOT15CR5 TOP
== END ==
LOC: CARD 10:30
PROVIDERS: ATTEND Internal Medicine Interventional Cardiology
DX: I50.22 Chronic systolic (congestive) heart failure (principal); I48.19 Other persistent atrial fibrillation; I08.1 Rheumatic disorders of both mitral and tricuspid valves
CPT/HCPCS: 93306

== ENCOUNTER → 2020-07-01 | Outpatient (CLI) | payer MEDICARE | END | disposition home or self-care (01) | LOC: PREOP 05:49 → EDSTATUS 15:00 | PROVIDERS: ATTEND Specialist | DX: Z01.818 Encounter for other preprocedural examination (principal) ==

== ENCOUNTER 2020-07-23 05:54 | Outpatient (CLI) | payer MEDICARE ==
[~2020-07-23] VITALS: Ht 167 cm; Wt 111.8 kg
== END 2020-07-24 10:15 | disposition home or self-care (01) ==
LOC: PREOP 05:54
PROVIDERS: ATTEND Specialist
DX: Z01.818 Encounter for other preprocedural examination (principal)

== ENCOUNTER 2020-07-25 08:41 | Day surgery (SDC) | payer MEDICARE ==
[~2020-07-25] VITALS: Ht 167 cm; Wt 111.8 kg
[2020-07-25 09:00] VITALS: BP 130/77
[2020-07-25] MEDS ORDERED: TROPICAMIDE 1% OPH SOLN (MYDRIACYL) 15 ML BTL OU PRN (09:15)
[2020-07-25] MEDS ORDERED: TETRACAINE 0.5% OPHTH SOLN 4 ML BTL (SINGLE DOSE ONLY) OU PRN (09:15)
[2020-07-25] MEDS ORDERED: PHENYLEPHRINE 10% OPHTH (NEO-SYN) 5 ML BTL OU PRN (09:15)
[2020-07-25 09:50] VITALS: BP 130/77
--- NOTE | 2020-07-25 10:14 | Ophthalmology Operative Report ---
YAG Capsulotomy PREOPERATIVE DIAGNOSIS: Secondary Cataract Bilateral POSTOPERATIVE DIAGNOSIS: Secondary Cataract Bilateral PROCEDURE: YAG Capsulotomy, Bilateral SURGEON: Mick Canseco ANESTHESIA: Topical anesthesia COMPLICATIONS: None ESTIMATED BLOOD LOSS: Minimal DESCRIPTION OF PROCEDURE: After proper informed consent was obtained, the patient's, a 70 female , received one drop of Tropicamide and one drop of Tetracaine in each eye. The patient was then placed at the YAG laser and using a power of [ 4.0] millijoules and bursts [ 21] right eye and [26 ] left eye were used to fashion a central capsulotomy. The patient tolerated the procedure well without complications. MICK CANSECO MD Jul 25, 2020 10:14
--- NOTE | 2020-07-25 10:14 | Ophthalmologist Pre-Op Note ---
Pre-Operative Progress Note H&P Reviewed The H&P was reviewed, patient examined and no changes noted. Date H&P Reviewed: Jul 25, 2020 Time H&P Reviewed: 09:35 Pre-Op Dx Secondary Cataract, Bilateral Eyes DONALDO CANSECO MD Jul 25, 2020 10:14
== END 2020-07-25 09:50 | disposition home or self-care (01) ==
LOC: SDC 08:41
PROVIDERS: ATTEND Specialist
DX: H26.493 Other secondary cataract, bilateral (principal); I48.91 Unspecified atrial fibrillation; Z83.3 Family history of diabetes mellitus

== ENCOUNTER → 2020-09-05 | Outpatient (CLI) | payer MEDICARE ==
[~2020-09-05] MED LIST changes: +ASPI-1238 PO; -ASPI-983 PO; -WARF1TAB82 PO; +WARF4TAB3 PO; -WARF4TAB70 PO; +WARF7.5T3 PO; -WARF7.5T49 PO; +WRF1T PO
== END ==
LOC: LABNPT 05:25
PROVIDERS: ATTEND Internal Medicine Interventional Cardiology
DX: Z01.812 Encounter for preprocedural laboratory examination (principal)

== ENCOUNTER 2020-12-04 09:06 | Outpatient (CLI) | payer MEDICARE ==
[~2020-12-04] VITALS: Ht 167.7 cm; Wt 111.8 kg
[~2020-12-04 09:06] MED LIST changes: +AMLO-250 PO; +AMLO-251 PO; -AMLO10TA7 PO; -AMLO5TAB9 PO; +CLN.2T PO; -CLON0.2T PO
[2020-12-04] MEDS ORDERED: NS IV 1000 ML 1,000 ML ONE ×2 (09:26→09:29)
[2020-12-04] MEDS ORDERED: methylPREDNISolone 125 MG (Solu-MEDROL) VIAL ONE (09:28)
[2020-12-04] MEDS: NS IV 1000 ML 1,000 ML IV SCH ×2 (09:39→10:40)
[2020-12-04 09:54] LABS: HEMOGLOBIN 10.6 g/dL (11.5-16.0); MEAN PLATELET VOLUME 10.5 fL (9.0-12.2); WHITE BLOOD COUNT 5.7 10^3/uL (4.3-11.0)
[2020-12-04 10:19] LABS: ALBUMIN 3.7 GM/DL (3.2-4.5); BILIRUBIN,TOTAL 0.5 MG/DL (0.1-1.0); CREATININE SERUM 1.42 MG/DL (0.60-1.30); POTASSIUM 3.3 MMOL/L (3.6-5.0); TOTAL PROTEIN 6.9 GM/DL (6.4-8.2)
[2020-12-04] MEDS ORDERED: methylPREDNISolone 125 MG (Solu-MEDROL) VIAL IV ONE (10:45)
[2020-12-04 11:50] VITALS: BP 147/78
== END 2020-12-04 11:55 | disposition home or self-care (01) ==
LOC: SDC 09:06
PROVIDERS: ATTEND Family Medicine
DX: R19.7 Diarrhea, unspecified (principal); E86.0 Dehydration; K52.9 Noninfective gastroenteritis and colitis, unspecified
CPT/HCPCS: 36415; 80053; 85027; 96360; 96361; 96374

== ENCOUNTER 2021-02-06 05:28 | Outpatient (RCR) | payer MEDICARE ==
[~2021-02-06] VITALS: Ht 167.7 cm; Wt 106.5 kg
[~2021-02-06 05:28] MED LIST changes: +POTA10CA43 PO
== END 2021-02-06 09:34 | disposition home or self-care (01) ==
LOC: PREOP 05:28
PROVIDERS: ATTEND Surgery
DX: Z01.812 Encounter for preprocedural laboratory examination (principal); K21.9 Gastro-esophageal reflux disease without esophagitis; R19.7 Diarrhea, unspecified; Z20.822 Contact with and (suspected) exposure to COVID-19
CPT/HCPCS: 87635

== ENCOUNTER 2021-02-10 10:03 | Day surgery (SDC) | payer MEDICARE ==
[~2021-02-10] VITALS: Ht 168 cm; Wt 107.0 kg
[~2021-02-10 10:03] MED LIST changes: +LACTATED RINGERS 1,000 ML IV ONE
[2021-02-10] MEDS ORDERED: LACTATED RINGERS 1,000 ML IV STA (10:06)
--- NOTE | 2021-02-10 10:13 | Progress Note-Pre Operative ---
Pre-Operative Progress Note H&P Reviewed The H&P was reviewed, patient examined and no changes noted. Date Seen by Provider: Feb 10, 2021 Time Seen by Provider: 10:12 Date H&P Reviewed: Feb 10, 2021 Time H&P Reviewed: 10:12 Pre-Operative Diagnosis: diarrhea gerd hx polyps SHONDA BOLAND DO Feb 10, 2021 10:13
[2021-02-10] MEDS ORDERED: HURRICAINE EXT TUBE (BENZOCAINE) XX PRN (10:15)
[2021-02-10 10:33] VITALS: BP 133/89
[2021-02-10] MEDS ORDERED: MIDAZOLAM 2 MG/2 ML (VERSED) VIAL ONE (11:27)
[2021-02-10] MEDS ORDERED: PROPOFOL INJECTION 50 ML IV ONE (11:27)
[2021-02-10] MEDS ORDERED: HURRICAINE EXT TUBE (BENZOCAINE) ONE (11:55)
[2021-02-10] MEDS ORDERED: proPOfol 200 MG/20 ML (DIPRIVAN) VIAL IV ONE (12:17)
[2021-02-10 12:55] VITALS: BP 120/65
--- NOTE | 2021-02-10 12:57 | Progress Note-Post Operative ---
Post-Operative Progess Note Surgeon (s)/Healthcare Financial Analyst (s) Surgeon SHONDA BOLAND DO Healthcare Financial Analyst: na Pre-Operative Diagnosis diarrhea gerd hx polyps Post-Operative Diagnosis slight gastritis, hiatal hernia, colon polyps Procedure & Operative Findings Date of Procedure 02/10/21 Procedure Performed/Findings egd c biopsies, colonoscopy c random cold biopsies cold polypectomy, snare polypectomy of anorectal polyp Anesthesia Type per underwriting clerks supervisor Estimated Blood Loss Estimated blood loss (mL): none Specimens/Packing Specimens Removed antrum, ge, random colon, sigmoid polyp SHONDA BOLAND DO Feb 10, 2021 12:57
[2021-02-10 13:00] VITALS: BP_SYST 121; BP_SYST 99; BP_DIAS 56; BP_DIAS 57
--- NOTE | 2021-02-10 13:04 | Discharge Inst-Simple/Standard ---
Discharge Inst-Standard Patient Instructions/Follow Up Plan of Care/Instructions/FU: 2-3 weeks Crow Activity as Tolerated: Yes Discharge Diet: Regular Diet SHONDA BOLAND DO Feb 10, 2021 13:04
--- NOTE | 2021-02-10 13:22 | Anesthesia-General Post-Op ---
MAC Patient Condition Mental Status/LOC: Same as Preop Cardiovascular: Satisfactory Nausea/Vomiting: Absent Respiratory: Satisfactory Pain: Controlled Complications: Absent Post Op Complications Complications None Follow Up Care/Instructions Patient Instructions None needed. Anesthesiology Discharge Order Discharge Order Patient is doing well, no complaints, stable vital signs, no apparent adverse anesthesia problems. No complications reported per nursing. JEROMY LAND CRNA Feb 10, 2021 13:22
[2021-02-10 13:30] VITALS: BP 133/89
--- NOTE | 2021-02-10 14:42 | OPERATIVE REPORT ---
DATE OF SERVICE: 02/10/2021 PREOPERATIVE DIAGNOSES: Gastroesophageal reflux disease, diarrhea and history of colon polyps. POSTOPERATIVE DIAGNOSES: Slight gastritis, hiatal hernia, and colon polyps. SURGEON: Shonda Maria DO ANESTHESIA: Per KIER PLEATER. PROCEDURE: EGD with biopsies, colonoscopy with random cold biopsies, cold polypectomy and snare polypectomy of the rectal polyp. ESTIMATED BLOOD LOSS: None. COMPLICATIONS: None. INDICATIONS: The patient is a 70-year-old female with a need for EGD and colonoscopy. She understands risks and benefits of procedure and wished to proceed with procedure. Consent was signed in the chart. DESCRIPTION OF PROCEDURE: The patient was taken to the endoscopy suite, placed in left lateral recumbent position. Timeout was performed. Scope was inserted in mouth, down the esophagus, stomach and into the duodenum without difficulty. There were no polyps, masses or ulcerations within the duodenum. Scope was slowly retracted back into the stomach where it was further insufflated. Slight changes appearing to be gastritis were present. Biopsy of the antrum was obtained. Scope was retroflexed noting some small and benign appearing polyps and hiatal hernia, no other pathology noted. Scope was returned to its normal position, slowly withdrawn to the distal esophagus and biopsy of the GE junction was obtained. Scope was slowly retracted back until completely remove, noting no other pathology. Digital rectal exam was performed noting a very tiny anorectal polyp. No other palpable polyps, masses or ulcerations. Scope was inserted in the rectum, advanced all the way to cecum with minimal difficulty. Prep was adequate with irrigation and suction. Scope was then slowly retracted back. There were no polyps, masses or ulcerations in the cecum, ascending, transverse and descending colon. As the scope was being retracted, several random cold biopsies were obtained. In sigmoid colon, there was a very small polyp, which cold biopsy polypectomy was performed. Scope was then continuously slowly retracted back into the rectum where scope was retroflexed noting a small polyp. Scope was returned to its normal position. Snare polypectomy was performed; however, the specimen was able to be obtained due to the flatulence occurring at the same time as the polypectomy and the scope was inserted multiple times and retracted and unable to find a specimen. Scope was then slowly retracted back until completely removed, noting no other pathology. The patient tolerated procedure well without any complications. She was taken to recovery room in stable condition. RECOMMENDATIONS: Follow up on biopsy results and would recommend repeat colonoscopy in 5 years if any issues before that be seen at that time. The patient will follow up on biopsy results in 2 to 3 weeks. Job ID: [id number] DocumentID: [id number] Dictated Date: 02/10/2021 13:01:09 Manager Agency Date: 02/10/2021 14:41:28 Dictated By: SHONDA MARIA DO
== END 2021-02-10 14:00 | disposition home or self-care (01) ==
LOC: ENDO 10:03
PROVIDERS: ATTEND Surgery
DX: K21.00 Gastro-esophageal reflux disease with esophagitis, without bleeding (principal); K63.5 Polyp of colon; K44.9 Diaphragmatic hernia without obstruction or gangrene; K29.70 Gastritis, unspecified, without bleeding; K62.1 Rectal polyp; G47.33 Obstructive sleep apnea (adult) (pediatric); I13.0 Hypertensive heart and chronic kidney disease with heart failure and stage 1 through stage 4 chronic kidney disease, or unspecified chronic kidney disease; N18.30 Chronic kidney disease, stage 3 unspecified; I50.32 Chronic diastolic (congestive) heart failure; E78.5 Hyperlipidemia, unspecified; G47.30 Sleep apnea, unspecified; I48.19 Other persistent atrial fibrillation; E66.01 Morbid (severe) obesity due to excess calories; Z68.37 Body mass index [BMI] 37.0-37.9, adult; Z79.01 Long term (current) use of anticoagulants; Z79.899 Other long term (current) drug therapy; Z86.010 Personal history of colon polyps; Z95.1 Presence of aortocoronary bypass graft; Z83.3 Family history of diabetes mellitus
CPT/HCPCS: 88305; 88313

== ENCOUNTER 2021-03-25 17:49 | Outpatient (RCR) | payer MEDICARE ==
[~2021-03-25 17:49] MED LIST changes: -LACTATED RINGERS 1,000 ML IV ONE
== END 2021-04-01 | disposition home or self-care (01) ==
LOC: CR3 17:49
PROVIDERS: ATTEND Family Medicine
DX: Z29.8 Encounter for other specified prophylactic measures (principal)

== ENCOUNTER 2021-05-01 12:58 | Outpatient (RCR) | payer MEDICARE | END 2021-05-03 | disposition home or self-care (01) | LOC: CR3 12:58 | PROVIDERS: ATTEND Family Medicine | DX: Z29.8 Encounter for other specified prophylactic measures (principal) ==

== ENCOUNTER 2021-05-20 11:49 | Outpatient (RCR) | payer MEDICARE ==
[~2021-05-20 11:49] MED LIST changes: -OMEP40CA27 PO; +OMEP40CA6 PO
[2021-05-29] MEDS ORDERED: CYCL10TA9 PO (14:35)
[2021-05-29] MEDS ORDERED: TRAM-42 PO (14:35)
== END 2021-06-03 | disposition home or self-care (01) ==
LOC: CR3 11:49
PROVIDERS: ATTEND Family Medicine
DX: Z29.8 Encounter for other specified prophylactic measures (principal)

== ENCOUNTER 2021-05-29 09:54 | Emergency (ER) | payer MEDICARE ==
[~2021-05-29] VITALS: Ht 167.7 cm; Wt 104.3 kg
[2021-05-29 10:21] LABS: BASOPHILS % (AUTO) 1 % (0-10); EOSINOPHILS % (AUTO) 1 % (0-10); HEMATOCRIT 34 % (35-52); HEMOGLOBIN 10.5 g/dL (11.5-16.0); LYMPHOCYTES # (AUTO) 0.8 10^3/uL (1.0-4.0); LYMPHOCYTES % (AUTO) 18 % (12-44); MEAN CORPUSCULAR HEMOGLOBIN 29 pg (25-34); MEAN CORPUSCULAR HGB CONC 31 g/dL (32-36); MEAN CORPUSCULAR VOLUME 92 fL (80-99); MEAN PLATELET VOLUME 9.7 fL (9.0-12.2); MONOCYTES # (AUTO) 0.4 10^3/uL (0.0-1.0); MONOCYTES % (AUTO) 10 % (0-12); NEUTROPHILS # (AUTO) 3.2 10^3/uL (1.8-7.8); NEUTROPHILS % (AUTO) 71 % (42-75); PLATELET COUNT 166 10^3/uL (130-400); WHITE BLOOD COUNT 4.4 10^3/uL (4.3-11.0)
[2021-05-29 10:32] LABS: ALBUMIN 4.2 GM/DL (3.2-4.5); POTASSIUM 3.8 MMOL/L (3.6-5.0)
[2021-05-29 10:34] LABS: CALCIUM 9.8 MG/DL (8.5-10.1)
[2021-05-29 10:35] LABS: TOTAL PROTEIN 7.1 GM/DL (6.4-8.2)
[2021-05-29 10:36] LABS: BILIRUBIN,TOTAL 1.1 MG/DL (0.1-1.0)
[2021-05-29 10:38] LABS: CREATININE SERUM 1.33 MG/DL (0.60-1.30)
[2021-05-29 10:41] LABS: MAGNESIUM 1.7 MG/DL (1.6-2.4)
[2021-05-29 10:43] LABS: INR 2.2 (0.8-1.4); PROTHROMBIN TIME PATIENT 24.5 SEC (12.2-14.7)
--- NOTE | 2021-05-29 10:44 | Diagnostic Imaging Report ---
Indication: Chest pain. Time of exam: 10:43 AM Correlation is made with prior chest 06/24/2018. Heart is enlarged. Changes of median sternotomy. No infiltrate or failure is detected. There is no effusion or pneumothorax. Impression: Cardiomegaly and status post CABG. No acute feature is detected. Dictated by: Dictated on workstation # [id number]
[2021-05-29] MEDS: NITROGLYCERIN 0.4 MG SL TABS BTL 25'S SL PRN ×2 (11:19→11:31)
[2021-05-29] MEDS ORDERED: ACETAMINOPHEN 500 MG TAB (TYLENOL) PO ONE (12:30)
[2021-05-29] MEDS ORDERED: ORPHENADRINE 60 MG/2 ML (NORFLEX) AMP (ED ONLY) IV ONE (12:30)
--- NOTE | 2021-05-29 13:29 | Consultation-Cardiology ---
HPI-Cardiology Cardiology Consultation Date of Consultation 05/29/21 Date of Admission Time Seen by Provider: 13:26 Indication: Chest pain HPI 71-year-old lady with history of mitral and tricuspid valve repairs, history of paroxysmal atrial fibrillation underwent ablation with Dr. Turner, patient was rescheduled for another ablation that was postponed and Dr. Turner has left town . She has been doing well, started to have chest pain in the retrosternal area, mild dyspnea, using oxygen at home. No syncope or near syncopal episodes, came into the emergency room, currently feeling better. Home Medications & Allergies Allergies: Coded Allergies: No Known Drug Allergies (Unverified , 04/19/11) Home Medication List Reviewed: Yes [id number] Hx Patient Social History Marital Status: 2nd Hand Smoke Exposure: No Recent Hopitalizations: No Have you traveled recently?: No Immunizations Up To Date Date of Pneumonia Vaccine: May 28, 2015 Date of Influenza Vaccine: Aug 22, 2020 Past Medical History Discussed below Family Medical History Family History: Dementia 19 MOTHER Diabetes mellitus G8 BROTHER FH: CABG (coronary artery bypass surgery) 19 FATHER FH: stroke 19 FATHER G8 BROTHER Myocardial infarction 19 FATHER TIAs G8 SISTER Review of Systems-General Review of Systems Constitutional: no symptoms reported, see HPI EENTM: see HPI, no symptoms reported Respiratory: no symptoms reported, see HPI, dyspnea on exertion Cardiovascular: see HPI, chest pain; No edema, No Hx of Intervention, No palpitations, No syncope, No vascular heart diseas, No other Gastrointestinal: no symptoms reported, see HPI Genitourinary: no symptoms reported, see HPI Musculoskeletal: no symptoms reported, see HPI Skin: no symptoms reported, see HPI Psychiatric/Neurological: No Symptoms Reported, See HPI Reviewed Test Results Reviewed Test Results Lab Laboratory Tests Test 05/29/21 10:08 05/29/21 12:20 Range/Units White Blood Count 4.4 4.3-11.0 10^3/uL Red Blood Count 3.67 L 3.80-5.11 10^6/uL Hemoglobin 10.5 L 11.5-16.0 g/dL Hematocrit 34 L 35-52 % Mean Corpuscular Volume 92 80-99 fL Mean Corpuscular Hemoglobin 29 25-34 pg Mean Corpuscular Hemoglobin Concent 31 L 32-36 g/dL Red Cell Distribution Width 14.8 H 10.0-14.5 % Platelet Count 166 130-400 10^3/uL Mean Platelet Volume 9.7 9.0-12.2 fL Immature Granulocyte % (Auto) 0 % Neutrophils (%) (Auto) 71 42-75 % Lymphocytes (%) (Auto) 18 12-44 % Monocytes (%) (Auto) 10 0-12 % Eosinophils (%) (Auto) 1 0-10 % Basophils (%) (Auto) 1 0-10 % Neutrophils # (Auto) 3.2 1.8-7.8 10^3/uL Lymphocytes # (Auto) 0.8 L 1.0-4.0 10^3/uL Monocytes # (Auto) 0.4 0.0-1.0 10^3/uL Eosinophils # (Auto) 0.0 0.0-0.3 10^3/uL Basophils # (Auto) 0.0 0.0-0.1 10^3/uL Immature Granulocyte # (Auto) 0.0 0.0-0.1 10^3/uL Prothrombin Time 24.5 H 12.2-14.7 SEC INR Comment 2.2 H 0.8-1.4 Activated Partial Thromboplast Time 42 H 24-35 SEC Sodium Level 142 135-145 MMOL/L Potassium Level 3.8 3.6-5.0 MMOL/L Chloride Level 104 98-107 MMOL/L Carbon Dioxide Level 28 21-32 MMOL/L Anion Gap 10 5-14 MMOL/L Blood Urea Nitrogen 17 7-18 MG/DL Creatinine 1.33 H 0.60-1.30 MG/DL Estimat Glomerular Filtration Rate 40 BUN/Creatinine Ratio 13 Glucose Level 92 70-105 MG/DL Calcium Level 9.8 8.5-10.1 MG/DL Corrected Calcium 9.6 8.5-10.1 MG/DL Magnesium Level 1.7 1.6-2.4 MG/DL Total Bilirubin 1.1 H 0.1-1.0 MG/DL Aspartate Amino Transf (AST/SGOT) 22 5-34 U/L Alanine Aminotransferase (ALT/SGPT) 17 0-55 U/L Alkaline Phosphatase 88 40-136 U/L Myoglobin 69.8 10.0-92.0 NG/ML Troponin I < 0.028 < 0.028 <0.028 NG/ML C-Reactive Protein High Sensitivity 1.94 H 0.00-0.50 MG/DL B-Type Natriuretic Peptide 174.7 H <100.0 PG/ML Total Protein 7.1 6.4-8.2 GM/DL Albumin 4.2 3.2-4.5 GM/DL Physical Exam Physical Exam Vital Signs Vital Signs - First Documented 05/29/21 09:54 Temp 36.2 Pulse 74 Resp 20 B/P (MAP) 169/102 (124) Pulse Ox 99 O2 Delivery Nasal Cannula O2 Flow Rate 2.0 Capillary Refill : Less Than 3 Seconds Height, Weight, BMI Height: 5'6.00" Weight: 249lbs. 3.2oz. [id number]; 37.00 BMI Method: General Appearance: No Apparent Distress, WD/WN Eyes: Bilateral Eye Normal Inspection, Bilateral Eye PERRL, Bilateral Eye EOMI HEENT: PERRL/EOMI, TMs Normal, Normal ENT Inspection, Pharynx Normal, Moist Mucous Membranes Neck: Full Range of Motion, Normal Inspection, Non Tender, Supple, Carotid Bruit Respiratory: Chest Non Tender, Normal Breath Sounds, No Accessory Muscle Use, No Respiratory Distress Cardiovascular: No Edema, No Gallop, No JVD, No Murmur, Normal Peripheral Pulses, Irregularly Irregular Gastrointestinal: Normal Bowel Sounds, No Organomegaly, No Pulsatile Mass, Non Tender, Soft Back: Normal Inspection, No CVA Tenderness, No Vertebral Tenderness Extremity: Normal Capillary Refill, Normal Inspection, Normal Range of Motion, Non Tender, No Calf Tenderness, No Pedal Edema Neurologic/Psychiatric: Alert, Oriented x3, No Motor/Sensory Deficits, Normal Mood/Affect Skin: Normal Color, Warm/Dry Lymphatic: No Adenopathy A/P-Cardiology Admission Diagnosis Chest pain Coronary artery disease Hypertension Hyperlipidemia Assessment/Plan Chest pain nonspecific etiology, reporting improvement, known to have mild coronary artery disease per cardiac catheterization 2018. Continue to monitor Coronary artery disease, history of cardiac catheterization done in August 2018 reporting mild disease nonobstructive disease with medical therapy recommended History of mitral and tricuspid valve repair using the mitral ring. Done with Dr. River in August 2018 at . Has been feeling well. Paroxysmal atrial fibrillation, had history of atrial fibrillation with rapid ventricular response, heart rate is better she is borderline bradycardic. Tolerating her current medication well. Patient failed ablation in the past, she is inquiring about having another ablation which will be done at a tertiary care center. Hypertension, restart home medication monitor blood pressure Hyperlipidemia, monitor lipids COPD, oxygen dependent, using oxygen at home. Clinical Quality Measures AMI/AHF: ASA po Prior to arrival: CARRIE Montejo MD May 29, 2021 13:29
[2021-05-29] MEDS ORDERED: CYCL10TA9 PO (14:35)
[2021-05-29] MEDS ORDERED: TRAM-42 PO (14:35)
--- NOTE | 2021-05-29 14:36 | ED Chest Pain ---
General Chief Complaint: Chest Pain Stated Complaint: CHEST TIGHTNESS Nursing Triage Note: ARRIVES FROM DR BARRON OFFICE C/O "CHEST HEAVINESS" STATES DR WAS CONCERNED SHE SHOULD GET CHECKED OUT IN LIGHT OF THE COMMING WEEKEND AND BECAUSE SHE HAS BEEN HAVING SX FOR 3 DAYS COUNTING TODAY. PATIENT DENIES FEVER, CHILLS, CHANGE IN BOWEL HABIT, OR NAUSEA. SPOUSE IN ROOM WITH PATIENT. Source: patient Exam Limitations: no limitations History of Present Illness Date Seen by Provider: May 29, 2021 Time Seen by Provider: 10:05 Initial Comments This 71-year-old woman presents to the emergency room with complaints of right- sided chest heaviness. She also has pain in the right neck that seems to be musculoskeletal in nature and radiates down to the right shoulder. She has tender tense musculature associated with this. She has multiple premature beats noted on the monitor during evaluation. She has history of atrial fibrillation and has well controlled anticoagulation on monitored warfarin therapy. Dr. Turner was her primary moisture tester. She is transitioning care to Dr. Gillette and has an appointment in June 08. She also has had a bit of shortness of breath with these symptoms. She has had COVID-19 and has been duly vaccinated. Allergies and Home Medications Allergies Coded Allergies: No Known Drug Allergies (Unverified , 04/19/11) Home Medications Amlodipine Besylate 2.5 Mg Tablet, 2.5 MG PO HS, (Reported) Atorvastatin Calcium 40 Mg Tablet, 40 MG PO 1930, (Reported) Bumetanide 1 Mg Tablet, 1 MG PO DAILY@1200, (Reported) Bumetanide 1 Mg Tablet, 2 MG PO DAILY, (Reported) take 2 (1mg) tab Carvedilol 6.25 Mg Tablet, 6.25 MG PO BID, (Reported) Cyclobenzaprine HCl 10 Mg Tablet, 10 MG PO Q8H PRN for SPASMS Prescribed by: JENNIFER BROWNING on 05/29/21 1435 Famotidine 20 Mg Tablet, 20 MG PO BID, (Reported) Potassium Chloride 10 Meq Tab.er.prt, 30 MEQ PO DAILY, (Reported) Potassium Chloride 10 Meq Capsule.er, 10 MEQ PO NOON, (Reported) Tramadol HCl 50 Mg Tablet, 50 MG PO Q6H PRN for PAIN-BREAKTHROUGH Prescribed by: JENNIFER BROWNING on 05/29/21 1436 Warfarin Sodium 5 Mg Tablet, 5 MG PO DAILY, (Reported) Patient Home Medication List Home Medication List Reviewed: Yes Review of Systems Review of Systems Constitutional: no symptoms reported, see HPI Respiratory: No Symptoms Reported Cardiovascular: See HPI Musculoskeletal: no symptoms reported, see HPI Skin: no symptoms reported, see HPI Psychiatric/Neurological: No Symptoms Reported, See HPI Endocrine: No Symptoms Reported Hematologic/Lymphatic: See HPI Past Pyyvqmc-Gsdcqv-Prmjdn Hx Patient Social History Tobacco Use?: No Substance use?: No Pt feels they are or have been: No Immunizations Up To Date Influenza Vaccine Up-to-Date: Yes; Up-to-Date First/Initial COVID19 Vaccinat: JAN 24 2021 Second COVID19 Vaccination Ryne: FEBRUARY 19 2021 COVID19 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: [email or web address] Seasonal Allergies Seasonal Allergies: No Past Medical History Surgery/Hospitalization HX: CHRONIC OXYGEN USAGE, HEART FAILURE AND RESPIRITORY FAILURE, A FIB HX Surgeries: Yes Breast (Biopsy), Eye Surgery, Orthopedic, Vascular Surgery Respiratory: Yes (WEARS OXYGEN, CPAP, ) Pneumonia, Sleep Apnea Currently Using CPAP: Yes Currently Using BIPAP: No Cardiac: Yes (OPEN HEART SURG 0 2018/HEART FAILURE) Atrial Fibrillation, Valvular Heart Disease Neurological: No Genitourinary: No Gastrointestinal: Yes Diverticulosis Musculoskeletal: Yes Arthritis Endocrine: No HEENT: No Cancer: No Psychosocial: No Integumentary: No Blood Disorders: No Family Medical History Dementia 19 MOTHER Diabetes mellitus G8 BROTHER FH: CABG (coronary artery bypass surgery) 19 FATHER FH: stroke 19 FATHER G8 BROTHER Myocardial infarction 19 FATHER TIAs G8 SISTER Physical Exam Vital Signs Vital Signs - First Documented 05/29/21 09:54 Temp 36.2 Pulse 74 Resp 20 B/P (MAP) 169/102 (124) Pulse Ox 99 O2 Delivery Nasal Cannula O2 Flow Rate 2.0 Capillary Refill : Less Than 3 Seconds Height, Weight, BMI Height: 5'6.00" Weight: 249lbs. 3.2oz. 112.557925xs; 37.00 BMI Method: General Appearance: No Apparent Distress, WD/WN HEENT: PERRL/EOMI, Normal ENT Inspection Neck: Normal Inspection, Other (Tenderness to palpation in the right trapezius muscle which is tight and spasmed) Respiratory: Lungs Clear, Normal Breath Sounds, No Accessory Muscle Use, Other (Tenderness to palpation of the anterior chest) Cardiovascular: No Edema, No Murmur, Irregularly Irregular Gastrointestinal: Non Tender, Soft Extremity: Normal Inspection, Non Tender, No Pedal Edema Neurologic/Psychiatric: Alert, Oriented x3, No Motor/Sensory Deficits, Normal Mood/Affect, deicer repairer II-XII Norm as Tested Skin: Normal Color, Warm/Dry Progress/Results/Core Measures Results/Orders Lab Results Laboratory Tests Test 05/29/21 10:08 05/29/21 12:20 Range/Units White Blood Count 4.4 4.3-11.0 10^3/uL Red Blood Count 3.67 L 3.80-5.11 10^6/uL Hemoglobin 10.5 L 11.5-16.0 g/dL Hematocrit 34 L 35-52 % Mean Corpuscular Volume 92 80-99 fL Mean Corpuscular Hemoglobin 29 25-34 pg Mean Corpuscular Hemoglobin Concent 31 L 32-36 g/dL Red Cell Distribution Width 14.8 H 10.0-14.5 % Platelet Count 166 130-400 10^3/uL Mean Platelet Volume 9.7 9.0-12.2 fL Immature Granulocyte % (Auto) 0 % Neutrophils (%) (Auto) 71 42-75 % Lymphocytes (%) (Auto) 18 12-44 % Monocytes (%) (Auto) 10 0-12 % Eosinophils (%) (Auto) 1 0-10 % Basophils (%) (Auto) 1 0-10 % Neutrophils # (Auto) 3.2 1.8-7.8 10^3/uL Lymphocytes # (Auto) 0.8 L 1.0-4.0 10^3/uL Monocytes # (Auto) 0.4 0.0-1.0 10^3/uL Eosinophils # (Auto) 0.0 0.0-0.3 10^3/uL Basophils # (Auto) 0.0 0.0-0.1 10^3/uL Immature Granulocyte # (Auto) 0.0 0.0-0.1 10^3/uL Prothrombin Time 24.5 H 12.2-14.7 SEC INR Comment 2.2 H 0.8-1.4 Activated Partial Thromboplast Time 42 H 24-35 SEC Sodium Level 142 135-145 MMOL/L Potassium Level 3.8 3.6-5.0 MMOL/L Chloride Level 104 98-107 MMOL/L Carbon Dioxide Level 28 21-32 MMOL/L Anion Gap 10 5-14 MMOL/L Blood Urea Nitrogen 17 7-18 MG/DL Creatinine 1.33 H 0.60-1.30 MG/DL Estimat Glomerular Filtration Rate 40 BUN/Creatinine Ratio 13 Glucose Level 92 70-105 MG/DL Calcium Level 9.8 8.5-10.1 MG/DL Corrected Calcium 9.6 8.5-10.1 MG/DL Magnesium Level 1.7 1.6-2.4 MG/DL Total Bilirubin 1.1 H 0.1-1.0 MG/DL Aspartate Amino Transf (AST/SGOT) 22 5-34 U/L Alanine Aminotransferase (ALT/SGPT) 17 0-55 U/L Alkaline Phosphatase 88 40-136 U/L Myoglobin 69.8 10.0-92.0 NG/ML Troponin I < 0.028 < 0.028 <0.028 NG/ML C-Reactive Protein High Sensitivity 1.94 H 0.00-0.50 MG/DL B-Type Natriuretic Peptide 174.7 H <100.0 PG/ML Total Protein 7.1 6.4-8.2 GM/DL Albumin 4.2 3.2-4.5 GM/DL My Orders Orders - JENNIFER GRIFFIN MD Cbc With Automated Diff (05/29/21 10:08) Magnesium (05/29/21 10:08) Chest 1 View, Ap/Pa Only (05/29/21 10:08) Ekg Tracing (05/29/21 10:08) Comprehensive Metabolic Panel (05/29/21 10:08) Myoglobin Serum (05/29/21 10:08) Protime With Inr (05/29/21 10:08) Partial Thromboplastin Time (05/29/21 10:08) O2 (05/29/21 10:08) Monitor-Rhythm Ecg Trace Only (05/29/21 10:08) Ed Iv/Invasive Line Start (05/29/21 10:08) BNP (05/29/21 10:08) Troponin I (05/29/21 10:08) Hs C Reactive Protein (05/29/21 10:08) Nitroglycerin 0.4 Mg Btl 25's (Nitrostat (05/29/21 11:00) Troponin I (05/29/21 12:10) Orphenadrine Inj (Ed Only) (Norflex Inje (05/29/21 12:30) Acetaminophen Tablet (Tylenol Tablet) (05/29/21 12:30) Medications Given in ED Current Medications Medications Dose Ordered Sig/Ana Route Start Time Stop Time Status Last Admin Dose Admin Acetaminophen 1,000 mg ONCE ONCE PO 05/29/21 12:30 05/29/21 12:31 DC 05/29/21 12:37 1,000 MG Nitroglycerin 0.4 mg UD PRN SL 05/29/21 11:00 05/29/21 15:58 DC 05/29/21 11:31 0.4 MG Orphenadrine Citrate 30 mg ONCE ONCE IV 05/29/21 12:30 05/29/21 12:31 DC 05/29/21 12:37 30 MG Vital Signs/I&O 05/29/21 05/29/21 05/29/21 05/29/21 09:54 09:54 10:08 15:00 Temp 36.2 Pulse 74 59 Resp 20 18 B/P (MAP) 169/102 (124) 134/75 Pulse Ox 99 99 100 O2 Delivery Nasal Cannula Nasal Cannula Nasal Cannula Room Air O2 Flow Rate 2.0 2.0 2.00 Blood Pressure Mean: 124 Progress Progress Note : Progress Note Pain seemed to improve some with nitroglycerin. Chart was reviewed and cardiac angiography from 2018 was reviewed. This demonstrated no obstructive coronary artery disease. 2-hour troponin rule out was pursued. Repeat troponin was negative. Case was discussed with Dr. Sonya devine and I concur that work-up can be safely pursued further in the outpatient setting. The frequent PVCs were noted. Increasing beta-uziel therapy was considered but ultimately not advised due to heart rate in the 50s and 60s. Initial ECG Impression Date: May 29, 2021 Initial ECG Impression Time: 10:06 Initial ECG Rate: 70 Initial ECG Rhythm: A Fib/Flutter Initial ECG Impression: Atrial Fibrillation Comment Atrial fibrillation with frequent PVCs. LVH. No ST elevation or depression. Diagnostic Imaging Diagonstic Imaging: Xray Plain Films/CT/US/NM/MRI: chest Comments NAME: ASHLEE HOYT [facility] REC#: [id number] PT STATUS: REG ER : 1950 PHYSICIAN: JENNIFER GRIFFIN MD ADMIT DATE: 05/29/21/ER Signed Date of Exam:05/29/21 CHEST 1 VIEW, AP/PA ONLY Indication: Chest pain. Time of exam: 10:43 AM Correlation is made with prior chest 06/24/2018. Heart is enlarged. Changes of median sternotomy. No infiltrate or failure is detected. There is no effusion or pneumothorax. Impression: Cardiomegaly and status post CABG. No acute feature is detected. Dictated by: Dictated on workstation # [id number] Dict: 05/29/21 1043 Trans: 05/29/21 1547 CVB [id number] Interpreted by: CRISTINE OSMAN MD Electronically signed by: CRISTINE OSMAN MD 05/29/21 1547 Departure Impression Primary Impression: Chest pain Qualified Codes: R07.9 - Chest pain, unspecified Additional Impressions: PVCs (premature ventricular contractions) Neck muscle spasm Disposition: HOME, SELF-CARE Condition: Improved Departure-Patient Inst. Decision time for Depature: 14:32 Referrals: CAPO SEE DO (PCP/Family) Primary Care Physician Patient Instructions: Chest Pain, Adult ED Add. Discharge Instructions: Keep your appointment with the moisture tester. Continue your medications as previously prescribed. Try cyclobenzaprine instead of baclofen for muscle relaxer. For primary pain control try Tylenol (acetaminophen) up to 1000 mg every 6 hours as needed. Add Ultram (tramadol) as prescribed for pain not controlled by Tylenol. You may apply gentle heat to the sore areas to help the muscles relax. Return to care if you have worsening symptoms. Call with questions or concerns. All discharge instructions reviewed with patient and/or family. Voiced understanding. Scripts Cyclobenzaprine HCl (Cyclobenzaprine HCl) 10 Mg Tablet 10 MG PO Q8H PRN for SPASMS, #10 TAB 0 Refills Prov: JENNIFER GRIFFIN MD 05/29/21 Tramadol HCl (Ultram) 50 Mg Tablet 50 MG PO Q6H PRN for PAIN-BREAKTHROUGH, #10 TAB Prov: JENNIFER GRIFFIN MD 05/29/21 Copy Copies To 1: CAPO SEE DO Copies To 2: MILLER GILLETTE JR, MD BRUEGGEMANN, JOSHUA T MD May 29, 2021 14:36
[2021-05-29 15:00] VITALS: BP 134/75
== END 2021-05-29 15:00 | disposition home or self-care (01) ==
LOC: EDUNIT# 09:55 → ER 09:58
DX: R07.9 Chest pain, unspecified (principal); I49.3 Ventricular premature depolarization; M62.838 Other muscle spasm; I48.91 Unspecified atrial fibrillation; Z79.01 Long term (current) use of anticoagulants; Z79.899 Other long term (current) drug therapy
CPT/HCPCS: 36415; 71045; 80053; 83735; 83874; 83880; 84484; 85025; 85610; 85730; 86141; 93005; 93041

== ENCOUNTER → 2021-06-05 | Outpatient (CLI) | payer MEDICARE ==
[~2021-06-05] MED LIST changes: +CYCL10TA9 PO; +TRAM-42 PO
--- NOTE | 2021-06-05 10:23 | Diagnostic Imaging Report ---
Indication: Neck pain, radiculopathy. Comparison: None Findings: 3 views of the cervical column demonstrate normal alignment. There is no subluxation or fracture. Jigy-vr-esuvyizi diffuse degenerative disc disease and facet joint arthropathy is seen. There is no osseous lesion. Impression: Diffuse degenerative changes. Dictated by: Dictated on workstation # [id number]
--- NOTE | 2021-06-09 08:12 | Cardiac Procedure Note ---
Cardiology Procedures Date of Procedure HOLTER MONITOR DATE OF PROCEDURE: 06/05/2021. INDICATION: Premature ventricular complexes and permanent atrial fibrillation. PROCEDURE: A 24-hour Holter monitor was obtained for a total 24 hours. The study quality is adequate. RESULTS: 1. Baseline atrial fibrillation with an average heart rate of 72 bpm, ranging from 42-88 bpm. 2. There were frequent (1728), isolated premature ventricular complexes, 771 ventricular couplets and numerous runs of wide-complex tachycardia which may be ventricular tachycardia versus aberrantly conducted atrial fibrillation. 3. The longest R-R interval was 2.1 seconds. 4. No cardiac symptoms were reported during the test. IMPRESSION: 1. This is a 24-hour Holter monitor report. 2. Baseline atrial fibrillation with an average heart rate of 72 bpm, ranging from 42-88 bpm with numerous episodes of ventricular ectopy as isolated and couplet beats as well as runs of ventricular ectopy versus aberrantly conducted atrial fibrillation with a total burden of 30%. 3. No cardiac symptoms were reported during the test. MILLER HOBSON JR, MD Jun 09, 2021 08:12
== END ==
LOC: CARD 09:30
PROVIDERS: ATTEND Family Medicine
DX: M47.22 Other spondylosis with radiculopathy, cervical region (principal); I48.20 Chronic atrial fibrillation, unspecified; I49.3 Ventricular premature depolarization; I34.0 Nonrheumatic mitral (valve) insufficiency
CPT/HCPCS: 72040; 93225; 93226

== ENCOUNTER → 2021-06-16 | Outpatient (CLI) | payer MEDICARE | LOC: CARD 10:32 | PROVIDERS: ATTEND Internal Medicine Cardiovascular Disease | DX: I08.3 Combined rheumatic disorders of mitral, aortic and tricuspid valves (principal); Z98.890 Other specified postprocedural states | CPT/HCPCS: 93306 ==

== ENCOUNTER 2021-07-21 14:31 | Outpatient (RCR) | payer MEDICARE | END 2021-09-21 | disposition home or self-care (01) | PROVIDERS: ATTEND Family Medicine | DX: M50.30 Other cervical disc degeneration, unspecified cervical region (principal); I11.9 Hypertensive heart disease without heart failure; M81.0 Age-related osteoporosis without current pathological fracture ==

== ENCOUNTER 2021-07-22 11:10 | Outpatient (RCR) | payer MEDICARE | END 2021-07-29 | LOC: CR3 11:10 | PROVIDERS: ATTEND Family Medicine | DX: Z29.8 Encounter for other specified prophylactic measures (principal) ==

== ENCOUNTER 2021-10-19 11:03 | Outpatient (RCR) | payer MEDICARE ==
[~2021-10-19 11:03] MED LIST changes: +CYCL10TA25 PO; -CYCL10TA9 PO; +POTA-160 PO; +POTA-164 PO; -POTA10TA14 PO; -POTA10TA36 PO; +POTA10TA37 PO; -POTA10TA6 PO
[2021-11-03] MEDS ORDERED: PANT40TA52 PO (14:37)
[2021-11-03] MEDS ORDERED: CALC0.253 PO (14:37)
[2021-11-03] MEDS ORDERED: BUDE3CAP5 PO (14:37)
[2021-11-03] MEDS ORDERED: BENZ100C18 PO (14:37)
[2021-11-03] MEDS ORDERED: DICY20TA PO (14:37)
[2021-11-03] MEDS ORDERED: ALLO100T PO (14:37)
[2021-11-03] MEDS ORDERED: PRD20T PO (14:37)
[2021-11-03] MEDS ORDERED: INUL1TAB3 PO (14:37)
[2021-11-03] MEDS ORDERED: DOXY100T2 PO (14:37)
[2021-11-03] MEDS ORDERED: BACL5TAB PO (14:37)
== END 2021-11-04 | disposition home or self-care (01) ==
LOC: CR3 11:03
PROVIDERS: ATTEND Family Medicine
DX: Z29.8 Encounter for other specified prophylactic measures (principal)

== ENCOUNTER 2021-11-03 10:40 | Inpatient (IN) | payer MEDICARE ==
[~2021-11-03] VITALS: Ht 167.6 cm; Wt 101.9 kg
[2021-11-03] MEDS ORDERED: AZITHROMYCIN INJECTION 500 MG in NS (IVPB) 250 ML IV SCH (11:07)
[2021-11-03] MEDS ORDERED: ONDANSETRON 4 MG/2 ML (SDV) Z0FRAN IV PRN (11:15)
[2021-11-03] MEDS ORDERED: PATIENT MAY USE OWN MEDS, ALL PO SCH (11:15)
[2021-11-03 11:41] VITALS: BP 170/81
[2021-11-03 11:42] LABS: BASOPHILS % (AUTO) 0 % (0-10); EOSINOPHILS % (AUTO) 0 % (0-10); HEMATOCRIT 33 % (35-52); HEMOGLOBIN 10.4 g/dL (11.5-16.0); LYMPHOCYTES # (AUTO) 0.8 10^3/uL (1.0-4.0); LYMPHOCYTES % (AUTO) 15 % (12-44); MEAN CORPUSCULAR HEMOGLOBIN 30 pg (25-34); MEAN CORPUSCULAR HGB CONC 32 g/dL (32-36); MEAN CORPUSCULAR VOLUME 95 fL (80-99); MEAN PLATELET VOLUME 9.6 fL (9.0-12.2); MONOCYTES # (AUTO) 0.5 10^3/uL (0.0-1.0); MONOCYTES % (AUTO) 11 % (0-12); NEUTROPHILS # (AUTO) 3.6 10^3/uL (1.8-7.8); NEUTROPHILS % (AUTO) 73 % (42-75); PLATELET COUNT 168 10^3/uL (130-400); WHITE BLOOD COUNT 4.9 10^3/uL (4.3-11.0)
[2021-11-03 12:04] LABS: INR 3.2 (0.8-1.4); PROTHROMBIN TIME PATIENT 33.6 SEC (12.2-14.7)
[2021-11-03 12:34] LABS: ALANINE AMINOTRANSFERASE 36 U/L (0-55); ALBUMIN 3.5 GM/DL (3.2-4.5); ALKALINE PHOSPHATASE 57 U/L (40-136); BILIRUBIN,TOTAL 1.2 MG/DL (0.1-1.0); BUN/CREATININE RATIO 23; CARBON DIOXIDE 27 MMOL/L (21-32); CHLORIDE 104 MMOL/L (98-107); CREATINE KINASE MB 3.6 NG/ML (<6.6); CREATININE SERUM 1.61 MG/DL (0.60-1.30); GFR ESTIMATED 32; GLUCOSE 82 MG/DL (70-105); MAGNESIUM 1.4 MG/DL (1.6-2.4); POTASSIUM 3.1 MMOL/L (3.6-5.0); SODIUM 143 MMOL/L (135-145); TOTAL PROTEIN 6.1 GM/DL (6.4-8.2)
[2021-11-03] MEDS ORDERED: amLODIPine 5 MG (NORVASC) TAB PO NR (13:15)
[2021-11-03] MEDS ORDERED: CATHETER FLUSH 10 ML SYR IV PRN (13:30)
[2021-11-03] MEDS: cefTRIAXone 1 GM PRE-MIX 50 ML IV SCH (13:33)
[2021-11-03] MEDS: ACETAMINOPHEN 325 MG TABLET PO PRN ×2 (13:36→20:57)
[2021-11-03] MEDS: RT-ALBUTEROL/IPRATROPIUM 3 ML (DUONEB) VIAL INH SCH ×3 (13:47→22:59)
[2021-11-03] MEDS: CATHETER FLUSH 10 ML SYR IV SCH ×2 (14:00→20:58)
[2021-11-03] MEDS ORDERED: PRD20T PO (14:37)
[2021-11-03] MEDS ORDERED: BUDE3CAP5 PO (14:37)
[2021-11-03] MEDS ORDERED: DICY20TA PO (14:37)
[2021-11-03] MEDS ORDERED: DOXY100T2 PO (14:37)
[2021-11-03] MEDS ORDERED: CALC0.253 PO (14:37)
[2021-11-03] MEDS ORDERED: BENZ100C18 PO (14:37)
[2021-11-03] MEDS ORDERED: INUL1TAB3 PO (14:37)
[2021-11-03] MEDS ORDERED: BACL5TAB PO (14:37)
[2021-11-03] MEDS ORDERED: ALLO100T PO (14:37)
[2021-11-03] MEDS ORDERED: PANT40TA52 PO (14:37)
--- NOTE | 2021-11-03 15:43 | Diagnostic Imaging Report ---
INDICATION: Dyspnea and pneumonia. TECHNIQUE: PA and lateral chest obtained at 03:36 p.m. and compared to 05/29/2021. FINDINGS: There is post-sternotomy change and cardiomegaly with prosthetic valve and left atrial appendage clip. There is central vascular congestion with diffuse interstitial infiltrate and/or edema. There is no consolidation or pneumothorax or pleural fluid collection. IMPRESSION: Cardiomegaly with central vascular congestion and interstitial edema versus infiltrate. No consolidation or pleural fluid. Dictated by: Dictated on workstation # [id number]
[2021-11-03 16:00] VITALS: BP 122/64
[2021-11-03] MEDS ORDERED: KCL 20 MEQ TAB (K-DUR) PO NR (17:00)
[2021-11-03] MEDS: MAGNESIUM 1 GM/100 ML IVPB 100 ML IV SCH ×2 (17:36→18:29)
[2021-11-03] MEDS ORDERED: warFARin 2 MG (COUMADIN) TAB PO SCH (18:00)
[2021-11-03] MEDS: BENZONATATE 100 MG (TESSALON) CAPSULE PO SCH (19:26)
[2021-11-03 20:00] VITALS: BP 162/94
[2021-11-03] MEDS: amLODIPine 2.5MG (NORVASC) TAB PO SCH (20:58)
[2021-11-03] MEDS: PANTOPRAZOLE 40 MG (PROTONIX) TAB PO SCH (20:58)
[2021-11-03] MEDS ORDERED: RT-ALBUTEROL/IPRATROPIUM 3 ML (DUONEB) VIAL ONE (22:51)
[2021-11-03 23:56] VITALS: BP 158/85
[2021-11-04] MEDS: RT-ALBUTEROL/IPRATROPIUM 3 ML (DUONEB) VIAL INH SCH ×6 (03:23→22:04)
[2021-11-04] MEDS: ACETAMINOPHEN 325 MG TABLET PO PRN ×2 (04:23→17:21)
[2021-11-04 04:24] VITALS: BP 160/89
[2021-11-04] MEDS: CATHETER FLUSH 10 ML SYR IV SCH ×3 (04:28→19:31)
[2021-11-04 06:30] LABS: POTASSIUM 3.6 MMOL/L (3.6-5.0)
[2021-11-04 06:31] LABS: CALCIUM 8.7 MG/DL (8.5-10.1)
[2021-11-04 06:35] LABS: CREATININE SERUM 1.34 MG/DL (0.60-1.30)
[2021-11-04 06:38] LABS: INR 3.6 (0.8-1.4); PROTHROMBIN TIME PATIENT 36.4 SEC (12.2-14.7)
[2021-11-04] MEDS ORDERED: PANTOPRAZOLE 40 MG (PROTONIX) TAB PO SCH (07:00)
[2021-11-04 08:00] VITALS: BP 155/76
[2021-11-04] MEDS: BENZONATATE 100 MG (TESSALON) CAPSULE PO SCH ×3 (08:12→19:30)
[2021-11-04] MEDS: BUDESONIDE ER 3 MG CAP (ENTOCORT) PO SCH (08:14)
[2021-11-04] MEDS: BUMETANIDE 1 MG (BUMEX) TAB PO SCH (08:15)
--- NOTE | 2021-11-04 09:13 | History & Physical ---
CHLOE HURTADO 11/04/21 0913: History of Present Illness History of Present Illness Reason for visit/HPI Juany Coyle is a 71 YO female with a history of A-fib with RVR, renal failure, HTN, obesity, GERD, CESAR, and anemia, who presents for evaluation and management of hypoxia and dyspnea following recent onset of illness on Tuesday, Oct 29, 2021. Juany states that initially she became fatigued with general malaise; this prompted her to seek evaluation at an urgent care, and was tested for COVID-19. Her COVID screening was negative, so she was given doxycycline, prednisone, and Tessalon Perles for suspected bronchitis. Juany states that she did not experience much relief from treatment, and continued to develop worsening cough, congestion, and dyspnea. Upon follow-up with Dr. Frye, Juany was admitted to the medical floor for further work-up. Upon my visit, she denies any chest pain, Nausea, or vomiting, but states that she has had chills, night sweats, cough, SOA, and some insomnia 2/2 steroids. CXR revealed cardiomegaly and central vascular congestion, but was negative for any consolidation or pleural fluid. Juany states that she is feeling significantly better today; her cough has diminished, she is able to speak without becoming SOA, and reports that she does not feel nearly as out of breath. Juany is conversational and has pleasant affect, and is accompanied by her . Date of Admission Nov 03, 2021 at 10:40 Date Seen by a Provider: Nov 04, 2021 Time Seen by a Provider: 08:50 I consulted on this patient on 11/04/21 08:50 Attending Physician Capo Frye DO Admitting Physician Capo Frye DO Consult Allergies and Home Medications Allergies Coded Allergies: No Known Drug Allergies (Unverified , 04/19/11) Patient Home Medication List Home Medication List Reviewed: Yes Allopurinol (Allopurinol) 100 Mg Tablet, 100 MG PO MO,WE,FR, (Reported) Entered as Reported by: THU HENSON on 11/03/21 3428 Last Action: Reviewed Amlodipine Besylate (Amlodipine Besylate) 2.5 Mg Tablet, 2.5 MG PO HS, (Reported) Entered as Reported by: HOMER AUGUSTIN on 08/08/19 1338 Last Action: Continued Atorvastatin Calcium (Atorvastatin Calcium) 40 Mg Tablet, 40 MG PO 1999, (Reported) Entered as Reported by: AURELIANO SOTO on 12/07/18 144 Last Action: Continued Baclofen (Baclofen) 5 Mg Tablet, 5 MG PO HS PRN for MUSCLE SPASMS, (Reported) Entered as Reported by: THU HENSON on 11/03/211436 Last Action: Reviewed Benzonatate (Tessalon Perles) 100 Mg Capsule, 200 MG PO Q8H, (Reported) Entered as Reported by: THU HENSON on 11/03/211436 Last Action: Continued Budesonide (Budesonide EC) 3 Mg Capdr...er, 6 MG PO DAILY, (Reported) Entered as Reported by: THU HENSON on 11/03/211436 Last Action: Continued Bumetanide (Bumetanide) 1 Mg Tablet, 2 MG PO DAILY, (Reported) Entered as Reported by: HOMER AUGUSTIN on 08/08/19 1343 Last Action: Continued Calcitriol (Calcitriol) 0.25 Mcg Capsule, 0.25 MCG PO MO,WE,FR, (Reported) Entered as Reported by: THU HENSON on 11/03/211436 Last Action: Reviewed Carvedilol (Carvedilol) 6.25 Mg Tablet, 6.25 MG PO BIDPC, (Reported) Entered as Reported by: AURELIANO SOTO on 12/07/18 144 Last Action: Continued Dicyclomine HCl (Dicyclomine HCl) 20 Mg Tablet, 20 MG PO TID PRN for DIGESTIVE CRAMPING, (Reported) Entered as Reported by: THU HENSON on 11/03/211436 Last Action: Reviewed Doxycycline Hyclate (Doxycycline Hyclate) 100 Mg Tablet, 100 MG PO BID, (Reported) Entered as Reported by: THU HENSON on 11/03/211436 Last Action: Reviewed Inulin/Chromium Picolinate (Fiber Select Gummies Tab Chew) 1 Each Tab.chew, 1 EACH PO BID, (Reported) Entered as Reported by: THU HENSON on 11/03/211436 Last Action: Reviewed Pantoprazole Sodium (Pantoprazole Sodium) 40 Mg Tablet.dr, 40 MG PO 1999, (Reported) Entered as Reported by: THU HENSON on 11/03/211436 Last Action: Continued Potassium Chloride (Potassium Chloride) 10 Meq Tab.er.prt, 20 MEQ PO 0700,1200,1900, (Reported) Entered as Reported by: RYAN MORALES on 02/03/211210 Last Action: Reviewed Prednisone (Prednisone) 20 Mg Tab, 40 MG PO DAILY, (Reported) Entered as Reported by: THU HENSON on 11/03/211436 Last Action: Reviewed Warfarin Sodium (Warfarin Sodium) 5 Mg Tablet, 5 MG PO HS, (Reported) Entered as Reported by: RYAN MORALES on 02/03/211210 Last Action: Reviewed Discontinued Medications Bumetanide (Bumetanide) 1 Mg Tablet, 1 MG PO DAILY@1200, (Reported) Discontinued Reason: Duplicate Order Entered as Reported by: HOMER AUGUSTIN on 08/08/19 1343 Last Action: Discontinued Cyclobenzaprine HCl (Cyclobenzaprine HCl) 10 Mg Tablet, 10 MG PO Q8H PRN for SPASMS Discontinued Reason: Duplicate Order Prescribed by: JENNIFER BROWNING on 05/29/21 1435 Last Action: Discontinued Famotidine (Acid Repairer Auto Clocks (FAMOTIDINE)) 20 Mg Tablet, 20 MG PO BID, (Reported) Discontinued Reason: No Longer Taking Entered as Reported by: HOMER AUGUSTIN on 08/08/19 1343 Last Action: Discontinued Potassium Chloride (Potassium Chloride) 10 Meq Capsule.er, 10 MEQ PO NOON, (Reported) Discontinued Reason: Duplicate Order Entered as Reported by: RYAN MORALES on 02/03/211210 Last Action: Discontinued Tramadol HCl (Ultram) 50 Mg Tablet, 50 MG PO Q6H PRN for PAIN-BREAKTHROUGH Discontinued Reason: No Longer Taking Prescribed by: JENNIFER BROWNING on 05/29/21 143 Last Action: Discontinued Past Ijfstdw-Qckpaf-Vsvivc Hx Patient Social History Marrital Status: Employed/Student: retired Tobacco Use?: No Substance use?: No Alcohol Use?: No Immunizations Up To Date Date of Influenza Vaccine: Sep 15, 2021 First/Initial COVID19 Vaccinat: DEC 2020 Second COVID19 Vaccination Ryne: JANUARY 2021 Tetanus Booster (TDap): Unknown Date of Pneumonia Vaccine: May 28, 2015 Seasonal Allergies Seasonal Allergies: No Current Status Advance Directives: No Communicates: Verbally Primary Language: Bermudian Preferred Spoken Language: Bermudian Sensory deficits: Vision impairment Past Medical History Surgeries: Breast, Eye Surgery, Orthopedic, Vascular Surgery Pneumonia, Sleep Apnea Currently Using CPAP: Yes Currently Using BIPAP: No Atrial Fibrillation, Valvular Heart Disease Diverticulosis Arthritis Blood Disorders: No Family Medical History Dementia 19 MOTHER Diabetes mellitus G8 BROTHER FH: CABG (coronary artery bypass surgery) 19 FATHER FH: stroke 19 FATHER G8 BROTHER Myocardial infarction 19 FATHER TIAs G8 SISTER Review of Systems Constitutional: chills, diaphoresis; No dizziness, No fever; malaise, weakness EENTM: No ear pain, No blurred vision, No double vision Respiratory: cough, dyspnea on exertion, short of breath, wheezing Cardiovascular: No chest pain, No palpitations Gastrointestinal: No abdominal pain, No constipation Genitourinary: No decreased output, No dysuria : No Musculoskeletal: No joint pain, No joint swelling Physical Exam Vital Signs Vital Signs - First Documented 11/03/21 11/03/21 11:00 11:41 Temp 36.9 Pulse 73 Resp 22 B/P (MAP) 170/81 (110) Pulse Ox 98 O2 Delivery Nasal Cannula O2 Flow Rate 4.00 Capillary Refill : Height, Weight, BMI Height: 5'6.00" Weight: 249lbs. 3.2oz. 112.720884dp; 36.31 BMI Method: General Appearance: No Apparent Distress, WD/WN Eyes: Bilateral Eye Normal Inspection, Bilateral Eye PERRL, Bilateral Eye EOMI HEENT: PERRL/EOMI, TMs Normal, Normal ENT Inspection Neck: Full Range of Motion, Normal Inspection, Non Tender Respiratory: No Accessory Muscle Use, No Respiratory Distress, Decreased Breath Sounds, Wheezing Cardiovascular: Normal Peripheral Pulses, Irregularly Irregular Gastrointestinal: Non Tender, Soft Rectal: Deferred Extremity: Pedal Edema (Pitting edema, Bilat, more significant on L LE) Neurologic/Psychiatric: Alert, Oriented x3, No Motor/Sensory Deficits, Normal Mood/Affect, child development assistant II-XII Norm as Tested Skin: Normal Color, Warm/Dry, Petechia (R foot) Assessment/Plan Assessment and Plan Hypoxia Dyspnea Suspected Pneumonia Continue Rocephin and Budesonide Continue Bumex Continue Tessalon Perles for cough Continue Duoneb treatments Await blood cultures Monitor closely Prolonged PT with Petechiae on R foot (?) Consider ordering fibrinogen, D-dimer Monitor platelets A-Fib with RVR, on anticoagulation HTN Consider cardiology consult -Patient is interested in referral, as 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 moved CKD Patient in need of new paralegal legal secretary Obesity Anemia Admission Diagnosis Admission Status: Inpatient Order (span 2 midnights) FERNIRAMCAPO Sebas 11/04/21 1726: Allergies and Home Medications Allergies Coded Allergies: No Known Drug Allergies (Unverified , 04/19/11) Patient Home Medication List Allopurinol (Allopurinol) 100 Mg Tablet, 100 MG PO MO,WE,FR, (Reported) Entered as Reported by: THU HENSON on 11/03/211436 Last Action: Reviewed Amlodipine Besylate (Amlodipine Besylate) 2.5 Mg Tablet, 2.5 MG PO HS, (Reported) Entered as Reported by: HOMER AUGUSTIN on 08/08/19 1338 Last Action: Continued Atorvastatin Calcium (Atorvastatin Calcium) 40 Mg Tablet, 40 MG PO 1999, (Re ported) Entered as Reported by: AURELIANO SOTO on 12/07/18 1440 Last Action: Continued Baclofen (Baclofen) 5 Mg Tablet, 5 MG PO HS PRN for MUSCLE SPASMS, (Reported) Entered as Reported by: THU HENSON on 11/03/211436 Last Action: Reviewed Benzonatate (Tessalon Perles) 100 Mg Capsule, 200 MG PO Q8H, (Reported) Entered as Reported by: THU HENSON on 11/03/211436 Last Action: Continued Budesonide (Budesonide EC) 3 Mg Capdr...er, 6 MG PO DAILY, (Reported) Entered as Reported by: THU HENSON on 11/03/211436 Last Action: Continued Bumetanide (Bumetanide) 1 Mg Tablet, 2 MG PO DAILY, (Reported) Entered as Reported by: HOMER AUGUSTIN on 08/08/19 1343 Last Action: Continued Calcitriol (Calcitriol) 0.25 Mcg Capsule, 0.25 MCG PO MO,WE,FR, (Reported) Entered as Reported by: THU HENSON on 11/03/211436 Last Action: Reviewed Carvedilol (Carvedilol) 6.25 Mg Tablet, 6.25 MG PO BIDPC, (Reported) Entered as Reported by: AURELIANO SOTO on 12/07/18 1440 Last Action: Continued Dicyclomine HCl (Dicyclomine HCl) 20 Mg Tablet, 20 MG PO TID PRN for DIGESTIVE CRAMPING, (Reported) Entered as Reported by: THU HENSON on 11/03/211436 Last Action: Reviewed Doxycycline Hyclate (Doxycycline Hyclate) 100 Mg Tablet, 100 MG PO BID, (R eported) Entered as Reported by: THU HENSON on 11/03/211436 Last Action: Reviewed Inulin/Chromium Picolinate (Fiber Select Gummies Tab Chew) 1 Each Tab.chew, 1 EACH PO BID, (Reported) Entered as Reported by: THU HENSON on 11/03/211436 Last Action: Reviewed Pantoprazole Sodium (Pantoprazole Sodium) 40 Mg Tablet.dr, 40 MG PO 1999, (Reported) Entered as Reported by: THU HENSON on 11/03/211436 Last Action: Continued Potassium Chloride (Potassium Chloride) 10 Meq Tab.er.prt, 20 MEQ PO 0700,1200,1900, (Reported) Entered as Reported by: RYAN MORALES on 02/03/21 121 Last Action: Reviewed Prednisone (Prednisone) 20 Mg Tab, 40 MG PO DAILY, (Reported) Entered as Reported by: THU HENSON on 11/03/211436 Last Action: Reviewed Warfarin Sodium (Warfarin Sodium) 5 Mg Tablet, 5 MG PO HS, (Reported) Entered as Reported by: RYAN MORALES on 02/03/21 121 Last Action: Reviewed Discontinued Medications Bumetanide (Bumetanide) 1 Mg Tablet, 1 MG PO DAILY@1200, (Reported) Discontinued Reason: Duplicate Order Entered as Reported by: HOMER AUGUSTIN on 08/08/19 1343 Last Action: Discontinued Cyclobenzaprine HCl (Cyclobenzaprine HCl) 10 Mg Tablet, 10 MG PO Q8H PRN for SPASMS Discontinued Reason: Duplicate Order Prescribed by: JENNIFER BROWNING on 05/29/21 1435 Last Action: Discontinued Famotidine (Acid Repairer Auto Clocks (FAMOTIDINE)) 20 Mg Tablet, 20 MG PO BID, (Reported) Discontinued Reason: No Longer Taking Entered as Reported by: HOMER AUGUSTIN on 08/08/19 1343 Last Action: Discontinued Potassium Chloride (Potassium Chloride) 10 Meq Capsule.er, 10 MEQ PO NOON, (Reported) Discontinued Reason: Duplicate Order Entered as Reported by: RYAN MORALES on 02/03/21 1211 Last Action: Discontinued Tramadol HCl (Ultram) 50 Mg Tablet, 50 MG PO Q6H PRN for PAIN-BREAKTHROUGH Discontinued Reason: No Longer Taking Prescribed by: JENNIFER BROWNING on 05/29/21 1436 Last Action: Discontinued Past Upjcdgu-Lfgrvp-Wtrhwk Hx Family Medical History Dementia 19 MOTHER Diabetes mellitus G8 BROTHER FH: CABG (coronary artery bypass surgery) 19 FATHER FH: stroke 19 FATHER G8 BROTHER Myocardial infarction 19 FATHER TIAs G8 SISTER Supervisory-Addendum Brief Verification & Attestation Participated in pt care: history, physical Personally performed: exam, history, supervision of care Care discussed with: Medical Student Procedures: n/a Patient seen and assessed and agree with above assessment/plan, but would add Acute on Chronic Diastolic CHF--Bumex restarted and CESAR--resumed home CPAP. CHLOE HURTADO Nov 04, 2021 09:13 CAPO FRYE DO Nov 04, 2021 17:26
[2021-11-04 12:00] VITALS: BP 125/70
[2021-11-04] MEDS: cefTRIAXone 1 GM PRE-MIX 50 ML IV SCH (12:06)
--- NOTE | 2021-11-04 14:37 | Consultation-Cardiology ---
HPI-Cardiology Cardiology Consultation Date of Consultation 11/04/21 Date of Admission Time Seen by Provider: 08:50 Indication: Dyspnea HPI Patient is a 71 y/o female with history of diastolic dysfunction, mitral and tricuspid valve repair in 2018, atrial fibrillation. Direct admit from Dr. Hernandez office d/t bronchitis with worsening dyspnea and suspected pneumonia. Patient reports she had been having increased dyspnea with cough and fatigue over the last week. COVID negative. Denies any recent chest pain or palpitations. Denies any dizziness or lightheadedness. Reporting some improvement of her dyspnea today. Home Medications & Allergies Allergies: Coded Allergies: No Known Drug Allergies (Unverified , 04/19/11) Home Medication List Reviewed: Yes WLR-Urxyep-Slgtmc Hx Patient Social History Marital Status: Employed/Student: retired 2nd Hand Smoke Exposure: No Recent Hopitalizations: No Have you traveled recently?: No Alcohol Use?: No Immunizations Up To Date Date of Pneumonia Vaccine: May 28, 2015 Date of Influenza Vaccine: Sep 15, 2021 Past Medical History Diastolic dysfunction, atrial fibrillation, CKD, COPD Family Medical History Significant Family History: No Pertinent Family Hx Family History: Dementia 19 MOTHER Diabetes mellitus G8 BROTHER FH: CABG (coronary artery bypass surgery) 19 FATHER FH: stroke 19 FATHER G8 BROTHER Myocardial infarction 19 FATHER TIAs G8 SISTER Review of Systems-General Review of Systems Constitutional: chills, diaphoresis; No dizziness, No fever; malaise, weakness EENTM: No ear pain, No blurred vision, No double vision Respiratory: cough, dyspnea on exertion, short of breath, wheezing Cardiovascular: No chest pain, No palpitations Gastrointestinal: No abdominal pain, No constipation Genitourinary: No decreased output, No dysuria : No Musculoskeletal: No joint pain, No joint swelling Reviewed Test Results Reviewed Test Results Lab Laboratory Tests 11/04/21 05:28: Sodium Level 141, Potassium Level 3.6, Chloride Level 104, Carbon Dioxide Level 26, Anion Gap 11, Blood Urea Nitrogen 28H, Creatinine 1.34H, Estimat Glomerular Filtration Rate 39, BUN/Creatinine Ratio 21, Glucose Level 79, Calcium Level 8.7, Magnesium Level 2.0 11/04/21 06:00: Prothrombin Time 36.4H, INR Comment 3.6H ECG Impression ECG Initial ECG Rhythm: A Fib/Flutter Initial ECG Comparisson: Unchanged Physical Exam Physical Exam Vital Signs Vital Signs - First Documented 11/03/21 11/03/21 11:00 11:41 Temp 36.9 Pulse 73 Resp 22 B/P (MAP) 170/81 (110) Pulse Ox 98 O2 Delivery Nasal Cannula O2 Flow Rate 4.00 Capillary Refill : Height, Weight, BMI Height: 5'6.00" Weight: 249lbs. 3.2oz. 112.418280fm; 36.31 BMI Method: General Appearance: No Apparent Distress, WD/WN Eyes: Bilateral Eye Normal Inspection, Bilateral Eye PERRL, Bilateral Eye EOMI HEENT: PERRL/EOMI, TMs Normal, Normal ENT Inspection Neck: Full Range of Motion, Normal Inspection, Non Tender Respiratory: No Accessory Muscle Use, No Respiratory Distress, Decreased Breath Sounds, Wheezing Cardiovascular: Normal Peripheral Pulses, Irregularly Irregular Gastrointestinal: Non Tender, Soft Rectal: Deferred Extremity: Pedal Edema (Pitting edema, Bilat, more significant on L LE) Neurologic/Psychiatric: Alert, Oriented x3, No Motor/Sensory Deficits, Normal M ood/Affect, physician scribe II-XII Norm as Tested Skin: Normal Color, Warm/Dry, Petechia (R foot) A/P-Cardiology Admission Diagnosis Dyspnea Chronic atrial fibrillation Bronchitis COPD Diastolic dysfunction Assessment/Plan Dyspnea, likely multifactorial d/t bronchitis, AE COPD and acute diastolic dysfunction. Reporting some improvement. Continue to monitor. Acute bronchitis with suspected pneumonia, started on antibiotics management per PCP AE COPD, currently on oxygen, management per medical services. Acute diastolic dysfunction. Maintained on Bumex as outpatient. 2D Echo done in May showing diastolic dysfunction with EF 50-55%, mild MR, mod TR. I will continue to diurese and continue to monitor. Coronary artery disease, history of cardiac catheterization done in August 2018 reporting mild disease nonobstructive disease with medical therapy recommended History of mitral and tricuspid valve repair using the mitral ring. Done with Dr. River in August 2018 at [facility]. Persistent atrial fibrillation. Patient failed ablation in the past, recently seen by Dr. Higgins last month to discuss possibility of redo ablation. Currently rate controlled. Maintained on Coumadin. Hypertension, controlled, continue to monitor. Hyperlipidemia, monitor lipids CKD, continue to monitor renal function. Hx of COVID in September 2020. Thank you for allowing us to participate in the management of Ms. Coyle. This is Josie Torres PA-C, as a scribe for Dr. Hassan. Patient was seen and evaluated with Josie, interviewed and examined the patient, agree with the current scribed note Patient has been having dyspnea, probably acute bronchitis with exacerbation of COPD, responding to treatment, reporting some improvement but still having significant cough and wheezing Had mild elevation in BNP with chest x-ray suggestive of increase pulmonary congestion. Had diastolic dysfunction on echo from May 2021, probably worsened by the renal insufficiency Has been maintained on Bumex as an outpatient Had persistent atrial fibrillation, underwent ablation in the past which has failed, currently seeing Dr. Higgins as an outpatient, continue on Coumadin and monitor INR. Monitor blood pressure and lipids JOSIE ALEJANDRE Nov 04, 2021 14:37 CARRIE HASSAN MD Nov 04, 2021 16:13
[2021-11-04 16:00] VITALS: BP 142/87
[2021-11-04] MEDS: AZITHROMYCIN 250 MG TAB (ZITHROMAX) PO SCH (17:42)
[2021-11-04] MEDS: PANTOPRAZOLE 40 MG (PROTONIX) TAB PO SCH (19:32)
[2021-11-04] MEDS: amLODIPine 2.5MG (NORVASC) TAB PO SCH (19:32)
[2021-11-04 20:23] VITALS: BP 151/79
[2021-11-04 23:22] VITALS: BP 124/75
[2021-11-05] MEDS: RT-ALBUTEROL/IPRATROPIUM 3 ML (DUONEB) VIAL INH SCH ×6 (02:29→22:10)
[2021-11-05 03:35] VITALS: BP 137/88
[2021-11-05 05:44] LABS: HEMATOCRIT 32 % (35-52); HEMOGLOBIN 10.4 g/dL (11.5-16.0); MEAN CORPUSCULAR HEMOGLOBIN 30 pg (25-34); MEAN CORPUSCULAR HGB CONC 33 g/dL (32-36); MEAN CORPUSCULAR VOLUME 92 fL (80-99); MEAN PLATELET VOLUME 9.6 fL (9.0-12.2); PLATELET COUNT 174 10^3/uL (130-400); WHITE BLOOD COUNT 4.5 10^3/uL (4.3-11.0)
[2021-11-05] MEDS: CATHETER FLUSH 10 ML SYR IV SCH ×3 (05:55→19:39)
[2021-11-05 05:57] LABS: INR 2.8 (0.8-1.4); PROTHROMBIN TIME PATIENT 29.8 SEC (12.2-14.7)
[2021-11-05 05:58] LABS: POTASSIUM 3.3 MMOL/L (3.6-5.0)
[2021-11-05 06:00] LABS: CALCIUM 8.9 MG/DL (8.5-10.1)
[2021-11-05 06:04] LABS: CREATININE SERUM 1.26 MG/DL (0.60-1.30)
[2021-11-05 08:00] VITALS: BP 146/60
[2021-11-05] MEDS: BENZONATATE 100 MG (TESSALON) CAPSULE PO SCH ×3 (08:31→19:39)
[2021-11-05] MEDS: AZITHROMYCIN 250 MG TAB (ZITHROMAX) PO SCH (08:31)
[2021-11-05] MEDS: BUMETANIDE 1 MG (BUMEX) TAB PO SCH (08:32)
[2021-11-05] MEDS: BUDESONIDE ER 3 MG CAP (ENTOCORT) PO SCH (08:32)
--- NOTE | 2021-11-05 08:34 | Cardiology Progress Note ---
Subjective Date Seen by Provider: Nov 05, 2021 Time Seen by Provider: 08:30 Subjective/Events-last exam Patient is laying down in bed, feeling better, still having cough and shortness of breath Review of Systems General: No Chills, No Night Sweats, No Fatigue, No Malaise, No Appetite, No Ot her HEENT: No Head Aches, No Visual Changes, No Eye Pain, No Ear Pain, No Dysp hasia, No Sinus Congestion, No Post Nasal Drip, No Sore Throat, No Other Pulmonary: Dyspnea, Cough; No Pleuritic Chest Pain, No Other Cardiovascular: No: Chest Pain, Palpitations, Orthopnea, Paroxysmal Noc. Dyspnea, Edema, Lt Headedness, Other Focused Exam Lactate Level 11/03/21 11:30: Lactic Acid Level 0.73 Objective-Cardiology Exam Last Set of Vital Signs Vital Signs 11/05/21 11/05/21 08:00 08:12 Temp 36.8 Pulse 60 Resp 18 B/P (MAP) 146/60 (88) Pulse Ox 99 O2 Delivery Nasal Cannula O2 Flow Rate 4.00 I&O Intake and Output 11/05/21 00:00 Intake Total 1270 ml Output Total 1400 ml Balance -130 ml Intake Oral 1270 ml Output Urine Total 1400 ml # Voids 2 General: Alert, Oriented X3, Cooperative HEENT: Atraumatic, PERRLA Neck: Supple, No JVD, No Thyromegaly Lungs: Normal Air Movement, Other (Bilateral rhonchi, bilateral wheezing) Heart: Normal S1, Normal S2, No Murmurs, Other (Atrial fibrillation) Abdomen: Normal Bowel Sounds, Soft, No Tenderness, No Hepatosplenomegaly, No Masses Extremities: No Clubbing, No Cyanosis, No Edema, Normal Pulses, No Tenderness/Swelling Skin: No Rashes, No Breakdown, No Significant Lesion Neuro: Normal Gait, Normal Speech, Strength at 5/5 X4 Ext, Normal Tone, Sensation Intact Psych/Mental Status: Mental Status NL, Mood NL Results Lab Laboratory Tests 11/05/21 05:24 A/P-Cardiology Admission Diagnosis Dyspnea Chronic atrial fibrillation Bronchitis COPD Diastolic dysfunction Assessment/Plan Dyspnea, likely multifactorial d/t bronchitis, AE COPD and acute diastolic dysfunction. Reporting some improvement, still having wheezing and cough, consider starting steroids again. Discussed with Dr. SEE Hypokalemia, given KCl 20 mEq today. Monitor electrolytes Acute bronchitis with suspected pneumonia, started on antibiotics management per PCP AE COPD, currently on oxygen, management per medical services. Acute diastolic dysfunction. Maintained on Bumex as outpatient. 2D Echo done in May showing diastolic dysfunction with EF 50-55%, mild MR, mod TR. I will continue to diurese and continue to monitor. Coronary artery disease, history of cardiac catheterization done in August 2018 reporting mild disease nonobstructive disease with medical therapy recommended History of mitral and tricuspid valve repair using the mitral ring. Done with Dr. River in August 2018 at . Persistent atrial fibrillation. Patient failed ablation in the past, recently seen by Dr. Higgins last month to discuss possibility of redo ablation. Currently rate controlled. Maintained on Coumadin. Hypertension, controlled, continue to monitor. Hyperlipidemia, monitor lipids CKD, continue to monitor renal function. Hx of COVID in September 2020. CARRIE SILVA MD Nov 05, 2021 08:34
[2021-11-05] MEDS ORDERED: KCL 20 MEQ TAB (K-DUR) PO NR (08:39)
[2021-11-05] MEDS ORDERED: methylPREDNISolone 40 MG/ML (Solu-MEDROL) VIAL IV NR (08:52)
--- NOTE | 2021-11-05 09:12 | Progress Note ---
Subjective Subjective Date Seen by Provider: Nov 05, 2021 Time Seen by Provider: 09:04 Upon follow-up for dyspnea and suspected pneumonia, Juany continues to improve; she states that she feels less short of air, and is able to ambulate with more ease. She reports that her energy is improving, as well as her appetite. Juany's cough is more pronounced and productive, however, this is 2/2 to improved airflow in her lungs. Juany denies any chills, nausea, vomiting, or pain. Though, she states that she did not get restful sleep last night. Juany is conversational and has pleasant affect. She is sitting comfortably in bed and is accompanied by her . Review of Systems General: No Chills, No Night Sweats, No Fatigue, No Malaise, No Appetite, No Other HEENT: No Head Aches, No Visual Changes, No Eye Pain, No Ear Pain, No Dysphasia, No Sinus Congestion, No Post Nasal Drip, No Sore Throat, No Other Pulmonary: Dyspnea, Cough; No Pleuritic Chest Pain, No Other Cardiovascular: No: Chest Pain, Palpitations, Orthopnea, Paroxysmal Noc. Dyspnea, Edema, Lt Headedness, Other Gastrointestinal: No: Nausea, Vomiting, Abdominal Pain Genitourinary: No Dysuria, No Frequency Neurological: No: Weakness Objective Exam Vital Signs Vital Signs Date Time Temp Pulse Resp B/P (MAP) Pulse Ox O2 Delivery O2 Flow Rate FiO2 11/05/21 08:12 60 11/05/21 08:00 36.8 67 18 146/60 (88) 99 Nasal Cannula 4.00 11/05/21 07:06 99 Nasal Cannula 4.00 11/05/21 03:35 36.6 72 20 137/88 (104) 100 NIV CPAP 4.00 11/05/21 02:29 95 Nasal Cannula 4.00 11/05/21 01:00 60 11/04/21 23:22 36.3 73 18 124/75 (91) 95 NIV CPAP 4.00 11/04/21 22:05 94 Nasal Cannula 4.00 11/04/21 20:23 35.7 69 18 151/79 (103) 98 Nasal Cannula 4.00 11/04/21 19:35 Nasal Cannula 4.00 11/04/21 19:00 66 11/04/21 18:41 98 Nasal Cannula 4.00 11/04/21 16:00 37.0 78 18 142/87 (105) 97 Nasal Cannula 4.00 11/04/21 14:52 97 Nasal Cannula 4.00 11/04/21 12:47 73 11/04/21 12:00 36.4 78 20 125/70 (88) 97 NIV CPAP 4.00 11/04/21 10:32 97 Nasal Cannula 4.00 I & O 11/05/21 07:00 Intake Total 1070 ml Output Total 1800 ml Balance -730 ml General Appearance: No Apparent Distress, WD/WN Eyes: Bilateral Eye Normal Inspection, Bilateral Eye PERRL, Bilateral Eye EOMI HEENT: PERRL/EOMI, TMs Normal, Normal ENT Inspection Neck: Full Range of Motion, Normal Inspection, Non Tender Respiratory: No Accessory Muscle Use, No Respiratory Distress, Decreased Breath Sounds, Wheezing Cardiovascular: Normal Peripheral Pulses, Irregularly Irregular Gastrointestinal: Non Tender, Soft Rectal: Deferred Extremity: Pedal Edema (Pitting edema, Bilat, more significant on L LE) Neurologic/Psychiatric: Alert, Oriented x3, No Motor/Sensory Deficits, Normal 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, 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 Norm as Tested Skin: Normal Color, Warm/Dry, Petechia (R foot) Results Lab Laboratory Tests 11/05/21 05:24: White Blood Count 4.5, Red Blood Count 3.44L, Hemoglobin 10.4L, Hematocrit 32L, Mean Corpuscular Volume 92, Mean Corpuscular Hemoglobin 30, Mean Corpuscular Hemoglobin Concent 33, Red Cell Distribution Width 13.7, Platelet Count 174, Mean Platelet Volume 9.6, Prothrombin Time 29.8H, INR Comment 2.8H, Sodium Level 142, Potassium Level 3.3L, Chloride Level 101, Carbon Dioxide Level 28, Anion Gap 13, Blood Urea Nitrogen 25H, Creatinine 1.26, Estimat Glomerular Filtration Rate 42, BUN/Creatinine Ratio 20, Glucose Level 88, Calcium Level 8.9 Microbiology 11/03/21 Blood Culture - Preliminary, Resulted No growth Meds Item Value Date Time Methylprednisolone 40 mg 11/05/21 1200 Sodium Succinate Q6HR/IV (Solu-MEDROL INJECTION) Methylprednisolone 40 mg 11/05/21 0852 Sodium Succinate 0852/IV (Solu-MEDROL INJECTION) Potassium Chloride 20 meq 11/05/21 0839 (K Dur Tablet) 0839/PO Azithromycin 250 mg 11/04/21 1715 (Zithromax DAILY/PO 11/05/21 0831 Tablet) Bumetanide BUMETANIDE 2 MG = 2 TA... 11/04/21 0900 (Bumex Tablet) DAILY/PO 11/05/21 0832 Budesonide BUDESONIDE ER 6 MG = 2... 11/04/21 0900 (Entocort Er DAILY/PO 11/05/21 0832 Capsule) Amlodipine AMLODIPINE 2.5 MG = 1 ... 11/03/212099 Besylate HS/PO 11/04/21 193 (Norvasc Tablet) Pantoprazole PANTOPRAZOLE 40 MG = 1... 11/03/211999 Sodium 2000/PO 11/04/21 193 (Protonix Tablet) Atorvastatin ATORVASTATIN 40 MG = 1... 11/03/211999 Calcium 2000/PO 11/04/21 193 (Lipitor Tablet) Benzonatate 200 mg 11/03/21 1900 (Tessalon Perles) TID/PO 11/05/21 0831 Carvedilol CARVEDILOL 6.25 MG = 1... 11/03/21 1800 (Coreg Tablet) BIDPC/PO 11/05/21 0831 Sodium Chloride 10-40 ML 11/03/21 1400 (Catheter Flush Q8HR/IV 11/05/21 0555 Syringe) Albuterol/ 3 ml 11/03/21 1400 Ipratropium RTQ4HR/INH 11/05/21 0706 (Duoneb Inhalation Solution) Sodium Chloride 10-40 ML 11/03/21 1330 (Catheter Flush NEEDED PRN/IV Syringe) Ceftriaxone 50 ml @ 100 mls/hr 11/03/21 1200 Sodium/Dextrose Q24H/IV 11/04/21 1206 Acetaminophen 650 mg 11/03/21 1215 (Tylenol Tablet) Q4H PRN/PO 11/04/21 1721 Ondansetron HCl 4 mg 11/03/21 1115 (Zofran Q6H PRN/IV Injection (Sdv)) Miscellaneous 11/03/21 1115 (Patient May Use UD/PO Own Meds, All) Assessment/Plan Assessment/Plan Assessment and Plan Hypoxia Dyspnea Suspected Pneumonia Continue Rocephin, Budesonide, and PO azithromycin (250mg) Continue Bumex for diuresis Continue Tessalon Perles for cough Solumedrol was initiated Await blood cultures Continue to monitor Acute on Chronic COPD Continue Oxygen Acute exacerbation of diastolic dysfunction Dr. Hassan was consulted and is following up with patient A-Fib with RVR Warfarin was held d/t PT/INR Hypokalemia Potassium supplementation initiated by Dr. 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 Agree with above but will add IV solumedrol for COPD exacerbation, give one dose of coumadin 1mg tonight and repeat PT/INR in AM and repeat CXR in AM to reassess pneumonia. CHLOE HURTADO Nov 05, 2021 09:12 CAPO SEE DO Nov 05, 2021 18:53
[2021-11-05 12:00] VITALS: BP 146/86
[2021-11-05] MEDS: methylPREDNISolone 40 MG/ML (Solu-MEDROL) VIAL IV SCH ×3 (12:03→22:49)
[2021-11-05] MEDS: cefTRIAXone 1 GM PRE-MIX 50 ML IV SCH (12:14)
[2021-11-05 16:00] VITALS: BP 124/76
[2021-11-05] MEDS ORDERED: guaiFENesin/CODEINE (ROBITUSSIN AC) 10ML UDC PO PRN (19:00)
[2021-11-05] MEDS ORDERED: warFARin 1 MG (COUMADIN) TAB PO NR (19:00)
[2021-11-05] MEDS: amLODIPine 2.5MG (NORVASC) TAB PO SCH (19:40)
[2021-11-05] MEDS: PANTOPRAZOLE 40 MG (PROTONIX) TAB PO SCH (19:40)
[2021-11-05 19:51] VITALS: BP 147/83
[2021-11-05 23:25] VITALS: BP 149/90
[2021-11-06] MEDS: RT-ALBUTEROL/IPRATROPIUM 3 ML (DUONEB) VIAL INH SCH ×3 (02:36→10:20)
[2021-11-06 03:01] VITALS: BP 152/87
[2021-11-06] MEDS: methylPREDNISolone 40 MG/ML (Solu-MEDROL) VIAL IV SCH ×2 (05:16→11:30)
[2021-11-06] MEDS: CATHETER FLUSH 10 ML SYR IV SCH (05:16)
[2021-11-06 06:16] LABS: INR 1.9 (0.8-1.4); PROTHROMBIN TIME PATIENT 22.5 SEC (12.2-14.7)
[2021-11-06 06:18] LABS: POTASSIUM 3.2 MMOL/L (3.6-5.0)
[2021-11-06 06:19] LABS: CALCIUM 9.4 MG/DL (8.5-10.1)
[2021-11-06 06:23] LABS: CREATININE SERUM 1.16 MG/DL (0.60-1.30)
[2021-11-06 06:26] LABS: MAGNESIUM 1.8 MG/DL (1.6-2.4)
[2021-11-06 07:37] VITALS: BP 134/94
[2021-11-06] MEDS ORDERED: KCL 20 MEQ TAB (K-DUR) PO NR (08:39)
[2021-11-06] MEDS: BENZONATATE 100 MG (TESSALON) CAPSULE PO SCH (08:54)
[2021-11-06] MEDS: BUDESONIDE ER 3 MG CAP (ENTOCORT) PO SCH (08:57)
[2021-11-06] MEDS: AZITHROMYCIN 250 MG TAB (ZITHROMAX) PO SCH (08:59)
[2021-11-06] MEDS: BUMETANIDE 1 MG (BUMEX) TAB PO SCH (08:59)
[2021-11-06] MEDS ORDERED: PRD20T PO (09:02)
[2021-11-06] MEDS ORDERED: WARF-48 PO (09:02)
[2021-11-06] MEDS ORDERED: CEFD300C3 PO (09:03)
[2021-11-06] MEDS ORDERED: AZIT250T12 PO (09:05)
[2021-11-06] MEDS ORDERED: ALBU2.5V4 INH (09:08)
--- NOTE | 2021-11-06 10:13 | Discharge Summary ---
RAMIROPhuCHLOE DIOP 11/06/21 1013: Diagnosis/Chief Complaint Date of Admission Nov 03, 2021 at 10:40 Date of Discharge Discharge Date: Nov 06, 2021 Discharge Diagnosis Pneumonia Reason Hospital Visit Juany Coyle is a 71 YO female with a history of A-fib with RVR, COPD, renal failure, HTN, obesity, GERD, CESAR, and anemia, who presents for evaluation and management of hypoxia and dyspnea following recent onset of illness on Tuesday, Oct 29, 2021. Juany states that initially she became fatigued with g eneral malaise; this prompted her to seek evaluation at an urgent care, and was tested for COVID-19. Her COVID screening was negative, so she was given doxycycline, prednisone, and Tessalon Perles for suspected bronchitis. Juany states that she did not experience much relief from treatment, and continued to develop worsening cough, congestion, and dyspnea. Upon follow-up with Dr. Jeniffer aguirre, Juany was admitted to the medical floor for further work-up. On evaluation, Juany demonstrated a dry cough, which frequently interrupted her speech, and prevented her from aerating her lungs fully. She also necessitated 4 L/min of oxygen via NC due to her hypoxic state. Upon work-up, CXR revealed cardiomegaly and central venous congestion. Ceftriaxone and Azithromycin were initiated in addition to IV Solumedrol. Cardiology was also consulted for acute exacerbation of diastolic dysfunction and A-fib. It was determined that bumetinide was sufficient to diurese her. As well, due to her h/o a-fib and present hypokalemia, potassium supplementation was initiated. It was noted that her INR and PT were supratherapeutic, so her Coumadin was held until those v alues decreased to therapeutic range, upon which coumadin was resumed at half dose (1 mg). Juany's lung function and cough improved following these interventions and was able to ambulate and speak with more ease. Today, she states she feels well enough to go home. A repeat CXR was ordered prior to her discharge to determine if there was improvement. On discharge, she will be sent home with a prednisone taper, Cefdinir, 2 days of azithromycin, potassium 20 MEQ, nebuulizer, and breathing treatment. She is also to restart her Coumadin at a dose of 2.5 mg. Juany is to have repeat blood work done to monitor potassium, INR and PT. She will RTC next week to follow-up. Discharge Summary Hospital Course Was the Problem List Reviewed?: Yes Labs Laboratory Tests 11/03/21 11:30: Red Blood Count 3.48L, Hemoglobin 10.4L, Hematocrit 33L, Lymphocytes # (Auto) 0.8L, Prothrombin Time 33.6H, INR Comment 3.2H, Potassium Level 3.1L, Blood Urea Nitrogen 37H, Creatinine 1.61H, Magnesium Level 1.4L, Total Bilirubin 1.2H, C- Reactive Protein High Sensitivity 6.17H, B-Type Natriuretic Peptide 115.5H, Total Protein 6.1L 11/04/21 05:28: Blood Urea Nitrogen 28H, Creatinine 1.34H 11/04/21 06:00: Prothrombin Time 36.4H, INR Comment 3.6H 11/05/21 05:24: Red Blood Count 3.44L, Hemoglobin 10.4L, Hematocrit 32L, Prothrombin Time 29.8H, INR Comment 2.8H, Potassium Level 3.3L, Blood Urea Nitrogen 25H 11/06/21 05:57: Prothrombin Time 22.5H, INR Comment 1.9H, Potassium Level 3.2L, Blood Urea Nitrogen 26H, Glucose Level 150H Procedures None. Discharge Physical Examination Allergies: Coded Allergies: No Known Drug Allergies (Unverified , 04/19/11) Vitals & I&Os Vital Signs Date Time Temp Pulse Resp B/P (MAP) Pulse Ox O2 Delivery O2 Flow Rate FiO2 11/06/21 07:37 36.8 69 22 134/94 (107) 98 Nasal Cannula 4.00 General Appearance: Alert, Oriented X3, Cooperative, No Acute Distress HEENT: Atraumatic, PERRLA, EOMI Cardiovascular: Other (Irregular) Abdominal: Normal Bowel Sounds, Soft Extremities: No Clubbing, No Cyanosis Skin: No Rashes, No Breakdown Neuro: Normal Gait, Normal Speech, Strength at 5/5 X4 Ext Psych/Mental Status: Mental Status NL Discharge Home Medications Reviewed and agree with Discharge Medication list on patient's Discharge Instruction sheet Instructions to Patient/Family Please see electronic discharge instructions given to patient. CAPO FRYE DO 11/06/21 1126: Diagnosis/Chief Complaint Discharge Diagnosis 1. Community Acquired Pneumonia--improved 2. Acute on Chronic Respiratory Failure--improving 3. Acute Exacerbation of COPD--improved with steroids/albuterol 4. Acute on Chronic Diastolic Congestive Heart Failure--improved with diuresis 5. Chronic Atrial Fibrillation--rate controlled 6. Hypertension--stable 7. Hypokalemia--on oral replacement 8. Acute on Chronic Renal Insufficiency--BUN/Cr back to baseline 9. Acute on Chronic Anemia--H/H stable 10. Microscopic Colitis--stable on entocort 11. Generalized weakness--will resume cardiac rehab once over pneumonia 12. Hypomagnesemia--improved after replacement 13. Supratherapeutic INR--resolved Discharge Summary Hospital Course Hospital Course Juany Coyle is a 71 YO female with a history of A-fib with RVR, COPD, renal failure, HTN, obesity, GERD, CESAR, and anemia, who presents for evaluation and management of hypoxia and dyspnea following recent onset of illness on Oct. Juany states that initially she became fatigued with general malaise; this prompted her to seek evaluation at an urgent care, and was tested for COVID-19. Her COVID screening was negative, so she was given doxycycline, prednisone, and Tessalon Perles for suspected bronchitis. Juany states that she did not experience much relief from treatment, and continued to develop worsening cough, congestion, and dyspnea. Upon follow-up with Dr. Frye, Juany was hypoxic in the office so was admitted to the medical floor for further work-up. On evaluation, Juany demonstrated a dry cough, which frequently interrupted her speech, and prevented her from aerating her lungs fully. She also necessitated 4 L/min of oxygen via NC due to her hypoxic state. Upon work-up, CXR revealed cardiomegaly and central venous congestion with possible infiltrates. Ceftriaxone and Azithromycin were initiated in addition to IV Solumedrol. Cardiology was also consulted for acute exacerbation of diastolic dysfunction and A-fib. It was determined that bumetinide was sufficient to diurese her. As well, due to her h/o a-fib and present hypokalemia, potassium supplementation was initiated. It was noted that her INR and PT were supratherapeutic, so her Coumadin was held until those values decreased to therapeutic range, upon which coumadin was resumed at half dose (1 mg). Juany's lung function and cough improved following these interventions and was able to ambulate and speak with more ease. Today, she states she feels well enough to go home. A repeat CXR was ordered prior to her discharge to determine if there was improvement. On discharge, she will be sent home with a prednisone taper, Cefdinir, 2 days of azithromycin, potassium 20 MEQ, nebuulizer, and breathing treatment. She is also to restart her Coumadin at a dose of 2.5 mg. Juany is to have repeat blood work done to monitor potassium, INR and PT. She will RTC next week to follow-up. Discharge Physical Examination Allergies: Coded Allergies: No Known Drug Allergies (Unverified , 04/19/11) General Appearance: Alert, Oriented X3 Respiratory: Other (decreased aeration with rales in bases) Cardiovascular: Other (Irregularly irregular) Abdominal: Normal Bowel Sounds, Soft Extremities: No Clubbing, No Cyanosis, No Edema Psych/Mental Status: Mental Status NL Supervisory-Addendum Brief Verification & Attestation Participated in pt care: history, physical Personally performed: exam, history, supervision of care Care discussed with: Medical Student Procedures: n/a Results interpretation: Verified all documentation Patient seen and assessed and agree with above documentation and plan for DC. CHLOE HURTADO Nov 06, 2021 10:13 CAPO FRYE DO Nov 06, 2021 11:26
--- NOTE | 2021-11-06 11:26 | Diagnostic Imaging Report ---
INDICATION: Pneumonia, follow-up. TIME OF EXAM: 10:50 a.m. COMPARISON: Correlation is made with prior chest from 11/03/2021. FINDINGS: The heart is enlarged but stable. Changes of median sternotomy are noted. Congestive changes have improved when compared with study three days earlier. No infiltrate is seen on today's study. No effusion or pneumothorax is detected. IMPRESSION: Improvement in congestive changes when compared with examination three days earlier. Dictated by: Dictated on workstation # [id number]
[2021-11-06] MEDS: cefTRIAXone 1 GM PRE-MIX 50 ML IV SCH (11:30)
[2021-11-06 11:58] VITALS: BP 157/77
[2021-11-06] MEDS ORDERED: warFARin 3 MG (COUMADIN) TAB PO SCH (18:00)
== END 2021-11-06 13:11 | disposition home or self-care (01) | DRG 193 ==
LOC: 4TH 10:40
PROVIDERS: ADMIT Family Medicine; ATTEND Family Medicine
PROC: 5A09357 Assistance with Respiratory Ventilation, Less than 24 Consecutive Hours, Continuous Positive Airway Pressure (ICD-10-PCS; principal; 2021-11-03)
DX: J18.9 Pneumonia, unspecified organism (principal); I50.33 Acute on chronic diastolic (congestive) heart failure; J96.21 Acute and chronic respiratory failure with hypoxia; I13.0 Hypertensive heart and chronic kidney disease with heart failure and stage 1 through stage 4 chronic kidney disease, or unspecified chronic kidney disease; J44.0 Chronic obstructive pulmonary disease with (acute) lower respiratory infection; J44.1 Chronic obstructive pulmonary disease with (acute) exacerbation; I48.19 Other persistent atrial fibrillation; I48.91 Unspecified atrial fibrillation; E66.9 Obesity, unspecified; K21.9 Gastro-esophageal reflux disease without esophagitis; G47.33 Obstructive sleep apnea (adult) (pediatric); Z20.822 Contact with and (suspected) exposure to COVID-19; Z79.01 Long term (current) use of anticoagulants; Z79.899 Other long term (current) drug therapy; K57.90 Diverticulosis of intestine, part unspecified, without perforation or abscess without bleeding; M19.90 Unspecified osteoarthritis, unspecified site; N18.9 Chronic kidney disease, unspecified; D64.9 Anemia, unspecified; Z79.4 Long term (current) use of insulin; Z95.2 Presence of prosthetic heart valve; J20.9 Acute bronchitis, unspecified; I25.10 Atherosclerotic heart disease of native coronary artery without angina pectoris; E87.6 Hypokalemia; Z86.16 Personal history of COVID-19; K52.839 Microscopic colitis, unspecified; R53.1 Weakness; E83.42 Hypomagnesemia; Z68.36 Body mass index [BMI] 36.0-36.9, adult; R79.1 Abnormal coagulation profile
CPT/HCPCS: 36415; 71046; 80048; 80053; 82553; 83605; 83735; 83880; 84443; 84484; 85025; 85027; 85610; 86141; 87040; 93005; 94640; 94760

== ENCOUNTER 2022-01-25 11:23 | Outpatient (RCR) | payer MEDICARE ==
[~2022-01-25 11:23] MED LIST changes: +ALBU2.5V4 INH; +ALLO100T PO; +AZIT250T12 PO; +BACL5TAB PO; +BENZ100C18 PO; +BUDE3CAP5 PO; +CALC0.253 PO; +CEFD300C3 PO; +DICY20TA PO; +DOXY100T2 PO; +INUL1TAB3 PO; +PANT40TA52 PO; +PRD20T PO
== END 2022-01-27 | disposition home or self-care (01) ==
LOC: CR3 11:23
PROVIDERS: ATTEND Family Medicine
DX: Z29.8 Encounter for other specified prophylactic measures (principal)

== ENCOUNTER 2022-03-24 11:21 | Outpatient (RCR) | payer MEDICARE | END 2022-03-27 | disposition home or self-care (01) | LOC: CR3 11:21 | PROVIDERS: ATTEND Family Medicine | DX: Z29.8 Encounter for other specified prophylactic measures (principal) ==

== ENCOUNTER 2022-05-26 14:32 | Outpatient (RCR) | payer MEDICARE | END 2022-05-27 | disposition home or self-care (01) | LOC: CR3 14:32 | PROVIDERS: ATTEND Family Medicine | DX: Z29.8 Encounter for other specified prophylactic measures (principal) ==

== ENCOUNTER 2022-07-26 15:05 | Outpatient (RCR) | payer MEDICARE ==
[2022-07-28] MEDS ORDERED: TORS20TA3 PO (07:16)
[2022-07-28] MEDS ORDERED: WRF2.5T PO (07:16)
[2022-07-28] MEDS ORDERED: METO5TAB6 PO (07:16)
[2022-07-28] MEDS ORDERED: MAGN400T39 PO (07:16)
[2022-07-28] MEDS ORDERED: WARF-48 PO (07:16)
[2022-07-28] MEDS ORDERED: LOSA50TA63 PO (07:16)
[2022-07-28] MEDS ORDERED: ERGO1250 PO (07:16)
[2022-07-28] MEDS ORDERED: FLUT9.9S NS (07:16)
== END 2022-07-27 | disposition home or self-care (01) ==
LOC: CR3 15:05
PROVIDERS: ATTEND Family Medicine
DX: Z29.8 Encounter for other specified prophylactic measures (principal)

== ENCOUNTER 2022-07-28 10:15 | Day surgery (SDC) | payer MEDICARE ==
[~2022-07-28] VITALS: Ht 167.6 cm; Wt 105.1 kg
[2022-07-28] VITALS (11 sets, daily range): BP systolic 94–149; BP diastolic 46–78
--- NOTE | 2022-07-28 07:01 | Diagnostic Imaging Report ---
Indication: Cardiac dysrhythmia AP view of the chest is obtained. Comparison is made to examination of 05/29/2021 There is stable cardiomegaly with surgical findings again noted in the mediastinum. No pneumothorax, consolidation or pleural fluid is seen. There is no overt pulmonary edema. IMPRESSION: Stable cardiomegaly without acute abnormality. Dictated by: Dictated on workstation # [id number]
[2022-07-28 07:03] LABS: BILIRUBIN,URINE NEGATIVE (NEGATIVE); CLARITY,URINE CLEAR; COLOR,URINE YELLOW; GLUCOSE, URINE (UA) NEGATIVE (NEGATIVE); KETONES,URINE NEGATIVE (NEGATIVE); LEUKOCYTE ESTERASE ,URINE NEGATIVE (NEGATIVE); NITRITE,URINE NEGATIVE (NEGATIVE); PH,URINE 6.5 (5-9); PROTEIN,URINE NEGATIVE (NEGATIVE)
[2022-07-28 07:03] LABS: HEMATOCRIT 34 % (35-52); HEMOGLOBIN 10.9 g/dL (11.5-16.0); MEAN CORPUSCULAR HEMOGLOBIN 29 pg (25-34); MEAN CORPUSCULAR HGB CONC 32 g/dL (32-36); MEAN CORPUSCULAR VOLUME 91 fL (80-99); MEAN PLATELET VOLUME 9.4 fL (9.0-12.2); PLATELET COUNT 210 10^3/uL (130-400); WHITE BLOOD COUNT 7.2 10^3/uL (4.3-11.0)
[2022-07-28 07:19] LABS: ALBUMIN 4.1 GM/DL (3.2-4.5); POTASSIUM 3.4 MMOL/L (3.6-5.0)
[2022-07-28 07:20] LABS: CALCIUM 10.2 MG/DL (8.5-10.1)
[2022-07-28 07:22] LABS: TOTAL PROTEIN 7.3 GM/DL (6.4-8.2)
[2022-07-28 07:24] LABS: BACTERIA,URINE NEGATIVE /HPF; HYALINE CASTS, URINE 0-2 /LPF; WBC,URINE 0-2 /HPF
[2022-07-28 07:25] LABS: CREATININE SERUM 2.16 MG/DL (0.60-1.30)
[2022-07-28 08:11] LABS: INR 2.2 (0.8-1.4); PROTHROMBIN TIME PATIENT 24.7 SEC (12.2-14.7)
--- NOTE | 2022-07-28 08:26 | Cardiac Procedure Note-CS/ASA ---
Pre-Procedure Note Pre-Op Procedure Note Date of Available H&P: Jul 20, 2022 Date H&P Reviewed: Jul 28, 2022 Time H&P Reviewed: 08:00 History & Physical: H&P Reviewed, Patient Examed, No changes noted Pre-Operative Diagnosis: atrial fibrillation Conscious Sedation Pre-Proced Time 08:00 ASA Score 3 For ASA 3 and 4: Consider anesthesia and medical clearance. Also, for patients with a history of failed moderate sedation consider anesthesia. Airway Lungs Heart ASA score ASA 1: a normal healthy patient ASA 2: a patient with a mild systemic disease (mid diabetes, controlled hypertension, obesity x ASA 3: a patient with a severe systemic disease that limits activity (angina, COPD, prior Myocardial infarction) ASA 4: a patient with an incapacitating disease that is a constant threat to life (CHF, renal failure) ASA 5: a moribund patient not expected to survive 24 hrs. (ruptured aneurysm) ASA 6: a declared brain- patient whose organs are being harvested. For emergent operations, add the letter E after the classification Mallampati Classification Grade 3 Sedation Plan Analgesia, Amnesia, Plan communicated to team members, Discussed options with patient/fam, Discussed risks with patient/fam The patient is an appropriate candidate to undergo the planned procedure, sedation, and anesthesia. The patient immediately re-assessed prior to indication. CARRIE SILVA MD Jul 28, 2022 08:26
--- NOTE | 2022-07-28 08:28 | Discharge Inst-Post CATH ---
Discharge Inst-CATH/EP Problems Reviewed?: Yes Post Cardiac Cath/EP D/C Inst Follow Up/Plan Appointment with Dr. Hassan's office in 2 to 4 weeks <b>CARDIAC CATH/EP PROCEDURE DISCHARGE INSTRUCTIONS</b> ACTIVITY * Go Home directly and rest. * Limit activity of the leg (or wrist if it was used) for 7 days including aer obics, swimming, jogging, bicycling, etc. * Restrict stair-climbing for 7 days if possible, if not, climb up with your non-cath leg, then bring together on the same step. * Avoid lifting, pushing, pulling or excessive movement of the affected extremi ty for 7 days. * Customary sexual activity may be resumed after 2 days-use caution not to use a position that strains or causes pain to the affected extremity. * No driving for 24 hours. * NO SMOKING. * Avoid straining for bowel movements for 7 days. * Gentle walking on level ground is allowed. * Returning to work will depend on the type of procedure and the results. Your doctor will discuss this with you. CALL YOUR DOCTOR FOR ANY OF THE FOLLOWING: *If bleeding from the puncture site occurs- Apply gentle pressure to site with clean cloth and call your doctor or EMS. * If a knot or lump forms under the skin, increases in size, or causes pain. * If bruising appears to be worsening or moving further down your leg instead of disappearing. * Temperature above 101 F. CARE OF YOUR GROIN INCISION; * Bruising or purple discoloration of the skin near the puncture site is common. * You may shower only, no bathtub bathing for 5 days. Be careful to avoid slipping as your leg may feel stiff. * If a closure device was used on your femoral artery, please see the attached guide regarding care of the device and your leg. * Leave dressing on FOR 24 hours. CARE OF YOUR WRIST INCISION; * Bruising or purple discoloration of the skin near the puncture site is common. * You may shower. * DO NOT submerge wrist. * Leave dressing on FOR 24 hours. CARRIE HASSAN MD Jul 28, 2022 08:28
--- NOTE | 2022-07-28 08:29 | Clinic Account Progress/Dx ---
Clinic Account Progress/Dx DIAGNOSIS: Date Seen by Provider: Jul 28, 2022 Time Seen by Provider: 08:28 Paroxysmal atrial fibrillation Hypertension Left atrial closure Hyperlipidemia CARRIE SILVA MD Jul 28, 2022 08:29
[~2022-07-28 10:15] MED LIST changes: +ERGO1250 PO; +FLUT9.9S NS; +LIDOCAINE 2% VISCOUS 15 ML UDC ONE; +LIDOCAINE 2% VISCOUS 15 ML UDC PO ONE; +LOSA50TA63 PO; +MAGN400T39 PO; +METO5TAB6 PO; +MIDAZOLAM 5 MG/5 ML (VERSED) VIAL IV ONE; +MIDAZOLAM 5 MG/5 ML (VERSED) VIAL ONE; +NS IV 1000 ML 1,000 ML IV ONE; +NS IV 1000 ML 1,000 ML ONE; +POTA-177 PO; -POTA10TA37 PO; +TORS20TA3 PO; +WRF2.5T PO; +fentaNYL INJ 100 MCG/2 ML AMP IV ONE; +fentaNYL INJ 100 MCG/2 ML AMP ONE
== END 2022-07-28 10:43 | disposition home or self-care (01) ==
LOC: CATH 10:15
PROVIDERS: ATTEND Internal Medicine Cardiovascular Disease
DX: I48.0 Paroxysmal atrial fibrillation (principal); I65.23 Occlusion and stenosis of bilateral carotid arteries; E78.2 Mixed hyperlipidemia; I12.9 Hypertensive chronic kidney disease with stage 1 through stage 4 chronic kidney disease, or unspecified chronic kidney disease; N18.30 Chronic kidney disease, stage 3 unspecified; Z99.81 Dependence on supplemental oxygen; J44.1 Chronic obstructive pulmonary disease with (acute) exacerbation; Z79.899 Other long term (current) drug therapy; Z86.16 Personal history of COVID-19
CPT/HCPCS: 36415; 71045; 80053; 80061; 81000; 85027; 85610; 85730; 87081; 93005; 93312

== ENCOUNTER 2022-09-20 11:04 | Outpatient (RCR) | payer MEDICARE ==
[~2022-09-20 11:04] MED LIST changes: -LIDOCAINE 2% VISCOUS 15 ML UDC ONE; -LIDOCAINE 2% VISCOUS 15 ML UDC PO ONE; -MIDAZOLAM 5 MG/5 ML (VERSED) VIAL IV ONE; -MIDAZOLAM 5 MG/5 ML (VERSED) VIAL ONE; -NS IV 1000 ML 1,000 ML IV ONE; -NS IV 1000 ML 1,000 ML ONE; -fentaNYL INJ 100 MCG/2 ML AMP IV ONE; -fentaNYL INJ 100 MCG/2 ML AMP ONE
== END 2022-09-26 | disposition home or self-care (01) ==
LOC: CR3 11:04
PROVIDERS: ATTEND Family Medicine
DX: Z29.8 Encounter for other specified prophylactic measures (principal)

== ENCOUNTER 2022-10-25 14:58 | Outpatient (RCR) | payer MEDICARE | END 2022-10-27 | disposition home or self-care (01) | LOC: CR3 14:58 | PROVIDERS: ATTEND Family Medicine | DX: Z29.8 Encounter for other specified prophylactic measures (principal) ==

== ENCOUNTER → 2022-11-10 | Outpatient (CLI) | payer MEDICARE ==
[~2022-11-10] MED LIST changes: +NS IV 1000 ML 1,000 ML IV ONE; +NS IV 1000 ML 1,000 ML ONE
[2022-11-10 14:06] VITALS: BP 136/88
[2022-11-10 15:12] LABS: BILIRUBIN,URINE NEGATIVE (NEGATIVE); CLARITY,URINE CLEAR; COLOR,URINE YELLOW; GLUCOSE, URINE (UA) NEGATIVE (NEGATIVE); KETONES,URINE NEGATIVE (NEGATIVE); LEUKOCYTE ESTERASE ,URINE 1+ (NEGATIVE); NITRITE,URINE NEGATIVE (NEGATIVE); PH,URINE 5.5 (5-9); PROTEIN,URINE NEGATIVE (NEGATIVE)
[2022-11-10 15:24] LABS: BACTERIA,URINE FEW /HPF; SQUAMOUS EPITHELIAL CELL,UR RARE /HPF
== END ==
LOC: SDC 13:35
PROVIDERS: ATTEND Nurse Practitioner Family
DX: E86.0 Dehydration (principal); R30.0 Dysuria; U09.9 Post COVID-19 condition, unspecified
CPT/HCPCS: 81000; 87077; 87088; 87186; 96360

== ENCOUNTER → 2022-12-06 | Outpatient (CLI) | payer MEDICARE ==
[~2022-12-06] MED LIST changes: -NS IV 1000 ML 1,000 ML IV ONE; -NS IV 1000 ML 1,000 ML ONE
== END ==
LOC: CARD 13:08
PROVIDERS: ATTEND Nurse Practitioner Family
DX: I51.7 Cardiomegaly (principal); I50.20 Unspecified systolic (congestive) heart failure; I34.0 Nonrheumatic mitral (valve) insufficiency; Z95.2 Presence of prosthetic heart valve
CPT/HCPCS: 93306

== ENCOUNTER 2023-01-26 11:14 | Outpatient (RCR) | payer MEDICARE ==
[~2023-01-26 11:14] MED LIST changes: -POTA10CA43 PO; +POTA10CA44 PO
== END 2023-01-27 | disposition home or self-care (01) ==
LOC: CR3 11:14
PROVIDERS: ATTEND Family Medicine
DX: Z29.8 Encounter for other specified prophylactic measures (principal)

== ENCOUNTER 2023-03-09 09:00 | Day surgery (SDC) | payer MEDICARE ==
[~2023-03-09] VITALS: Ht 167.6 cm; Wt 108.0 kg
[2023-03-09] VITALS (11 sets, daily range): BP systolic 121–163; BP diastolic 56–72
[2023-03-09 07:35] LABS: HEMATOCRIT 34 % (35-52); HEMOGLOBIN 10.4 g/dL (11.5-16.0); MEAN CORPUSCULAR HEMOGLOBIN 30 pg (25-34); MEAN CORPUSCULAR HGB CONC 31 g/dL (32-36); MEAN CORPUSCULAR VOLUME 95 fL (80-99); MEAN PLATELET VOLUME 10.3 fL (9.0-12.2); PLATELET COUNT 175 10^3/uL (130-400); WHITE BLOOD COUNT 7.1 10^3/uL (4.3-11.0)
--- NOTE | 2023-03-09 07:36 | Diagnostic Imaging Report ---
CHEST 1 VIEW, AP/PA ONLY Indication: Dyspnea Comparison: 07/28/2022 Findings: Cardiomegaly with mild hazy central opacities. Status post mitral valve replacement and left atrial appendage occlusion. No pleural effusion or pneumothorax. Impression: 1. Potential mild pulmonary edema versus atypical infection. Dictated by: Dictated on workstation # [id number]
[2023-03-09 07:53] LABS: INR 1.1 (0.8-1.4); PROTHROMBIN TIME PATIENT 14.2 SEC (12.2-14.7)
[2023-03-09 07:56] LABS: ALBUMIN 4.4 GM/DL (3.2-4.5); BILIRUBIN,TOTAL 1.4 MG/DL (0.1-1.0); CALCIUM 10.6 MG/DL (8.5-10.1); CREATININE SERUM 1.76 MG/DL (0.60-1.30); TOTAL PROTEIN 7.1 GM/DL (6.4-8.2)
[~2023-03-09 09:00] MED LIST changes: +ACET325T38 PO; +ATOR20TA66 PO; +CRAN500T4 PO; +FURO80TA3 PO; +LOPE2CAP PO; +METO2.5T PO; +NS IV 1000 ML 1,000 ML IV SCH; +OMEG100032 PO; +POLY30DR6 OP; +POTA-51 PO; +PSYL0.4C2 PO
[2023-03-09] MEDS ORDERED: NS IV 1000 ML 1,000 ML ONE (09:02)
[2023-03-09] MEDS ORDERED: LIDOCAINE 1% INJ 20 ML VIAL ONE (09:02)
[2023-03-09] MEDS ORDERED: HEParin (CATH LAB) 2,000 ML IV ONE (09:02)
--- NOTE | 2023-03-09 09:04 | Cardiac Procedure Note-CS/ASA ---
Pre-Procedure Note Pre-Op Procedure Note Date of Available H&P: Feb 28, 2023 Date H&P Reviewed: Mar 09, 2023 Time H&P Reviewed: 09:03 History & Physical: H&P Reviewed, Patient Examed, No changes noted Pre-Operative Diagnosis: pulmonary hypertension Moderate Sedation PreProcedure Time 09:03 ASA Score 3 Airway Lungs Heart ASA score ASA 1: a normal healthy patient ASA 2: a patient with a mild systemic disease (mid diabetes, controlled hypertension, obesity ASA 3: a patient with a severe systemic disease that limits activity (angina, COPD, prior Myocardial infarction) ASA 4: a patient with an incapacitating disease that is a constant threat to life (CHF, renal failure) ASA 5: a moribund patient not expected to survive 24 hrs. (ruptured aneurysm) ASA 6: a declared brain- patient whose organs are being harvested. For emergent operations, add the letter E after the classification Mallampati Classification Grade 3 Sedation Plan Analgesia, Amnesia, Plan communicated to team members, Discussed options with patient/fam, Discussed risks with patient/fam The patient is an appropriate candidate to undergo the planned procedure, sedation, and anesthesia. The patient immediately re-assessed prior to indication. CARRIE SILVA MD Mar 09, 2023 09:04
[2023-03-09] MEDS ORDERED: MIDAZOLAM 5 MG/5 ML (VERSED) VIAL ONE (09:06)
[2023-03-09] MEDS ORDERED: fentaNYL INJ 100 MCG/2 ML AMP ONE (09:06)
[2023-03-09] MEDS ORDERED: ADENOSINE 90 MG/30 ML (ADENOSCAN) VIAL IV ONE (09:14)
--- NOTE | 2023-03-09 10:18 | Discharge Inst-Post CATH ---
Discharge Inst-CATH/EP Problems Reviewed?: Yes Post Cardiac Cath/EP D/C Inst Follow Up/Plan Appointment with Dr. Hassan's office in 2 to 4 weeks <b>CARDIAC CATH/EP PROCEDURE DISCHARGE INSTRUCTIONS</b> ACTIVITY * Go Home directly and rest. * Limit activity of the leg (or wrist if it was used) for 7 days including aer obics, swimming, jogging, bicycling, etc. * Restrict stair-climbing for 7 days if possible, if not, climb up with your non-cath leg, then bring together on the same step. * Avoid lifting, pushing, pulling or excessive movement of the affected extremi ty for 7 days. * Customary sexual activity may be resumed after 2 days-use caution not to use a position that strains or causes pain to the affected extremity. * No driving for 24 hours. * NO SMOKING. * Avoid straining for bowel movements for 7 days. * Gentle walking on level ground is allowed. * Returning to work will depend on the type of procedure and the results. Your doctor will discuss this with you. CALL YOUR DOCTOR FOR ANY OF THE FOLLOWING: *If bleeding from the puncture site occurs- Apply gentle pressure to site with clean cloth and call your doctor or EMS. * If a knot or lump forms under the skin, increases in size, or causes pain. * If bruising appears to be worsening or moving further down your leg instead of disappearing. * Temperature above 101 F. CARE OF YOUR GROIN INCISION; * Bruising or purple discoloration of the skin near the puncture site is common. * You may shower only, no bathtub bathing for 5 days. Be careful to avoid slipping as your leg may feel stiff. * If a closure device was used on your femoral artery, please see the attached guide regarding care of the device and your leg. * Leave dressing on FOR 24 hours. CARE OF YOUR WRIST INCISION; * Bruising or purple discoloration of the skin near the puncture site is common. * You may shower. * DO NOT submerge wrist. * Leave dressing on FOR 24 hours. CARRIE HASSAN MD Mar 09, 2023 10:18
--- NOTE | 2023-03-09 10:24 | Cardiac Cath Report ---
Cardiac Cath Report Physician (s)/Development Administrator (s) Physician CARRIE SILVA MD Pre-Procedure Diagnosis Pre-Procedure Diagnosis: pulmonary hypertension Post-Procedure Note Procedure Start Date: Mar 09, 2023 Name of Procedure: Right heart catheterization Findings/Procedure Note Patient has underlying pulmonary hypertension, she was scheduled for right heart catheterization with vasodilator challenge. After explaining the procedure to the patient all pros and cons were explained all questions were answered patient was placed on the cardiac catheterization laboratory, right groin was prepped in a sterile fashion, local anesthesia applied, 7 [place] sheath was placed in the right femoral vein, balloontipped [place] catheter was advanced to the right atrium, right ventricle, main pulmonary artery then to the left pulmonary artery and advanced to the wedge position. Multiple maneuvers were done. Hemodynamic described below. At the end of the procedure catheter and sheath were removed. Hemodynamics: PA pressure 90/37/57 Pulmonary capillary wedge pressure of 38 2-minute of adenosine PA pressure 80/30/53 Pulmonary capillary wedge pressure 35 4 minutes of adenosine 76/30/51 Pulmonary capillary wedge pressure 35 6 minutes of adenosine PA 79/25/50 PCW 42 RV 68/18/22 76/11/27 RA 23 Oxygen saturation FA 90 PA 62.7 RV 59.5 L RA 58.2 HR a 54.6 Mid RA 57.2 Cardiac output by thermodilution 5.23, by Ayden equation 5.16 Cardiac index by thermodilution 2.44, cardiac index 2.40 Conclusion Pulmonary hypertension with moderate response to vasodilator CC Dr. Nolen Anesthesia Type: Conscious Sedation Estimated blood loss (mL): 10 ml Contrast Amount: 0 ml Total Radiation Dose: 168 mGy Post-Procedure Diagnosis Post-operative diagnosis: COPD Pulmonary hypertension Hypertension Hypoxemia CARRIE SILVA MD Mar 09, 2023 10:24
[2023-03-09] MEDS ORDERED: NS IV 1000 ML 1,000 ML IV SCH (10:30)
[2023-03-09] MEDS ORDERED: PATIENT MAY USE OWN MEDS, ALL PO SCH (10:30)
[2023-03-09] MEDS ORDERED: KCL 20 MEQ TAB (K-DUR) PO NR (10:30)
[2023-03-09] MEDS: POTASSIUM CL 10MEQ/50ML IVPB 50 ML IV SCH ×2 (11:11→12:20)
== END 2023-03-09 14:05 | disposition home or self-care (01) ==
LOC: CATH 09:00 → SDC 10:40 → CATH 14:05
PROVIDERS: ATTEND Internal Medicine Cardiovascular Disease
DX: I27.20 Pulmonary hypertension, unspecified (principal); I12.9 Hypertensive chronic kidney disease with stage 1 through stage 4 chronic kidney disease, or unspecified chronic kidney disease; E78.2 Mixed hyperlipidemia; I48.20 Chronic atrial fibrillation, unspecified; I25.10 Atherosclerotic heart disease of native coronary artery without angina pectoris; I48.21 Permanent atrial fibrillation; I08.3 Combined rheumatic disorders of mitral, aortic and tricuspid valves; I48.0 Paroxysmal atrial fibrillation; I44.7 Left bundle-branch block, unspecified; I65.23 Occlusion and stenosis of bilateral carotid arteries; J44.9 Chronic obstructive pulmonary disease, unspecified; N18.30 Chronic kidney disease, stage 3 unspecified; R09.02 Hypoxemia; E66.01 Morbid (severe) obesity due to excess calories; Z68.38 Body mass index [BMI] 38.0-38.9, adult; Z86.16 Personal history of COVID-19; Z99.81 Dependence on supplemental oxygen; Z98.890 Other specified postprocedural states; Z79.899 Other long term (current) drug therapy
CPT/HCPCS: 71045; 80053; 80061; 85027; 85610; 85730; 93005; 93451; 96365; 96366; C1769; C1894; 36415

== ENCOUNTER 2023-03-25 11:12 | Outpatient (RCR) | payer MEDICARE ==
[~2023-03-25 11:12] MED LIST changes: -NS IV 1000 ML 1,000 ML IV SCH
== END 2023-03-27 | disposition home or self-care (01) ==
LOC: CR3 11:12
PROVIDERS: ATTEND Family Medicine
DX: Z29.8 Encounter for other specified prophylactic measures (principal)

== ENCOUNTER 2023-05-25 11:29 | Outpatient (RCR) | payer MEDICARE ==
[~2023-05-25 11:29] MED LIST changes: +POTA-330 PO; -POTA-51 PO
== END 2023-05-27 | disposition home or self-care (01) ==
LOC: CR3 11:29
PROVIDERS: ATTEND Family Medicine
DX: Z29.8 Encounter for other specified prophylactic measures (principal)

== ENCOUNTER → 2023-07-27 | Outpatient (RCR) | payer MEDICARE ==
[~2023-07-27] MED LIST changes: -POTA10CA44 PO; +POTA10CA84 PO
== END | disposition home or self-care (01) ==
LOC: CR3 05-30 11:25
PROVIDERS: ATTEND Family Medicine
DX: Z29.8 Encounter for other specified prophylactic measures (principal)

== ENCOUNTER 2023-08-08 11:19 | Outpatient (RCR) | payer MEDICARE ==
[~2023-08-08 11:19] MED LIST changes: +FAMO-356 PO; -FAMO20TA3 PO
== END 2023-09-26 | disposition home or self-care (01) ==
LOC: CR3 11:19
PROVIDERS: ATTEND Family Medicine
DX: Z01.89 Encounter for other specified special examinations (principal)

== ENCOUNTER 2023-08-18 19:02 | Outpatient (CLI) | payer MEDICARE | END 2023-08-19 06:40 | LOC: SLEEP 19:02 | PROVIDERS: ATTEND Nurse Practitioner Family | DX: G47.33 Obstructive sleep apnea (adult) (pediatric) (principal); R06.83 Snoring | CPT/HCPCS: 95811 ==

== ENCOUNTER 2023-10-22 14:52 | Emergency (ER) | payer MEDICARE ==
[~2023-10-22] VITALS: Ht 165 cm; Wt 109.0 kg
[2023-10-22] MEDS ORDERED: HYDROcodone/ACETAMINOPHEN 5 MG/325 MG TABLET PO ONE (15:15)
[2023-10-22] MEDS ORDERED: ONDANSETRON 4 MG ORAL DISSOLVE TABLET PO ONE (15:15)
--- NOTE | 2023-10-22 15:19 | ED Integumentary General ---
General Stated Complaint: PROBLEM WITH STITCHES LEFT LEG Source: patient, family () Exam Limitations: no limitations History of Present Illness Date Seen by Provider: Oct 22, 2023 Time Seen by Provider: 15:00 Initial Comments Patient is a 73-year-old female who presents to the emergency department with a chief complaint of wound issue. She was at [facility] yesterday getting onto the train and stepped up and missed her footing hitting her left [place]tega on the edge of the train. She sustained a 10 cm curvilinear laceration over the distal anterior lower leg. Presented to a local emergency department where she had the wound thoroughly cleansed, irrigated and repaired. She had her tetanus updated and was started on some antibiotics. Patient is not on blood thinners. She is concerned because the inferior margin of the most distal portion of the laceration appears to have . She is concerned that the sutures are pulling apart. Complains of pain to the distal leg. Timing/Duration: yesterday Severity: moderate Location: extremities (Left lower leg) Possible Cause: other (Laceration) Associated Symptoms: other (Leg pain) Allergies and Home Medications Allergies Coded Allergies: No Known Drug Allergies (Unverified , 04/19/11) Patient Home Medication List Home Medication List Reviewed: Yes Acetaminophen (Tylenol) 325 Mg Tablet, 650 MG PO Q6H PRN for PAIN-MILD (1-4), ( Reported) Entered as Reported by: JAY JAY TUCKER on 03/09/23812 Allopurinol (Allopurinol) 100 Mg Tablet, 100 MG PO ,,,,TUE, (Reported) Entered as Reported by: THU HENSON on 11/03/21 143 Atorvastatin Calcium (Atorvastatin Calcium) 20 Mg Tablet, 20 MG PO HS, (Reported) Entered as Reported by: JAY JAY TUCKER on 03/09/23 08 Budesonide (Budesonide EC) 3 Mg Capdr...er, 6 MG PO DAILY, (Reported) Entered as Reported by: THU HENSON on 11/03/21 143 Carvedilol (Carvedilol) 6.25 Mg Tablet, 6.25 MG PO BID, (Reported) Entered as Reported by: AURELIANO SOTO on 12/07/18 1440 Cranberry Extract (Cranberry) 500 Mg Tablet, 1,000 MG PO DAILY, (Reported) Entered as Reported by: JAY JAY TUCKER on 03/09/23812 Dicyclomine HCl (Dicyclomine HCl) 20 Mg Tablet, 20 MG PO MO,WE,FR PRN for IRR ITABLE BOWELS, (Reported) Entered as Reported by: JAY JAY TUCKER on 03/09/23812 Fluticasone Propionate (Flonase Allergy Relief) 50 Mcg/Actuation [place].susp, 1 S PRAY NS DAILY PRN for CONGESTION, (Reported) Entered as Reported by: JAY JAY TUCKER on 03/09/23812 Furosemide (Furosemide) 80 Mg Tablet, 80 MG PO DAILY, (Reported) Entered as Reported by: JAY JAY TUCKER on 03/09/23812 Loperamide HCl (Loperamide) 2 Mg Capsule, 2 MG PO HS PRN for DIARRHEA, (Reported) Entered as Reported by: JAY JAY TUCKER on 03/09/23812 Losartan Potassium (Losartan Potassium) 50 Mg Tablet, 50 MG PO HS, (Reported) Entered as Reported by: JAY JAY TUCKER on 03/09/23812 Magnesium Oxide (Magnesium) 400 Mg Magnesium Tablet, 400 MG PO DAILY, (Reported) Entered as Reported by: JAY JAY TUCKER on 03/09/23812 Metolazone (Metolazone) 2.5 Mg Tablet, 2.5 MG PO DAILY PRN for FLUID RETENTION, (Reported) Entered as Reported by: JAY JAY TUCKER on 03/09/23812 Woodman-3/Dha/Epa/Fish Oil (Fish Oil 1,000 mg Softgel) 1,000 Mg (120 Mg-180 Mg) Capsule, 1,000 MG PO DAILY, (Reported) Entered as Reported by: JAY JAY TUCKER on 03/09/23812 Pantoprazole Sodium (Pantoprazole Sodium) 40 Mg Tablet.dr, 40 MG PO DAILY, (Reported) Entered as Reported by: JAY JAY TUCKER on 03/09/23812 Polyethylene Glycol 400 (Visine Dry Eye Relief) 1 % Drops, 1 DROP OP BID, (Reported) Entered as Reported by: JAY JAY TUCKER on 03/09/23812 Potassium Chloride (Potassium Chloride) 20 Meq Tablet.er, 20 MEQ PO TID, (Reported) Entered as Reported by: JAY JAY TUCKER on 03/09/23812 Psyllium Husk (Metamucil) 0.4 Gram Capsule, 0.4 GM PO TID, (Reported) Entered as Reported by: JAY JAY TUCKER on 03/09/23812 Review of Systems Review of Systems Constitutional: see HPI Respiratory: no symptoms reported Cardiovascular: edema Gastrointestinal: no symptoms reported Musculoskeletal: other (Left lower leg pain) Skin: other (Skin laceration) Past Anouhnb-Vlbzpg-Ryrcox Hx Immunizations Up To Date First/Initial COVID19 Vaccinat: DEC 2020 Second COVID19 Vaccination Ryne: JANUARY 2021 Seasonal Allergies Seasonal Allergies: No Past Medical History Surgeries: Yes Breast, Eye Surgery, Orthopedic, Vascular Surgery Respiratory: Yes (WEARS OXYGEN, CPAP, ) Pneumonia, Sleep Apnea, COPD Currently Using CPAP: Yes Currently Using BIPAP: No Cardiac: Yes (OPEN HEART SURG 02017/HEART FAILURE) Atrial Fibrillation, High Cholesterol, Hypertension, Valvular Heart Disease Neurological: No Genitourinary: No Renal Failure Gastrointestinal: Yes Diverticulosis, Chronic Diarrhea Musculoskeletal: Yes Arthritis Endocrine: No HEENT: No Cancer: No Psychosocial: No Integumentary: No Blood Disorders: No Family Medical History Dementia 19 MOTHER Diabetes mellitus G8 BROTHER FH: CABG (coronary artery bypass surgery) 19 FATHER FH: stroke 19 FATHER G8 BROTHER Myocardial infarction 19 FATHER TIAs G8 SISTER No Pertinent Family Hx Physical Exam Vital Signs Capillary Refill : General Appearance: WD/WN, no apparent distress Respiratory: no respiratory distress, no accessory muscle use Extremities: swelling (2+ pitting edema bilateral lower extremities. The left lower extremity has an approximately 10 cm curvilinear laceration over the distal anterior left lower leg. It is closed in both superficial interrupted and horizontal mattress sutures. There is about a 3 to 4 cm area where the proximal skin has pulled away from the subcutaneous tissues leaving exposed subcutaneous fat. No active bleeding. There is hematoma approximately 6 to 7 cm just cephalad to the laceration. Mildly erythematous. Slightly warm. Nonfluctuant.) Neurologic/Psychiatric: alert, normal mood/affect, oriented x 3 Skin: warm/dry Progress/Results/Core Measures Results/Orders My Orders Orders - IZZY SANTIAGO MD Hydrocodone/Apap 5/325 Tablet (Hydrocod (10/22/23 15:15) Ondansetron Oral Dissolve Tab (Ondanset (10/22/23 15:15) Progress Progress Note : Time: 15:16 Progress Note Patient seen and evaluated by me. Evaluation today includes history and physical exam. Pertinent physical exam findings well-developed well-nourished obese female in no acute distress. Stable vital signs. She has an approximate 10 cm curvilinear laceration to the distal anterior left lower extremity. Sutured in both superficial interrupted and horizontal mattress sutures. Tender to palpation just proximal to the suture line in the area of fairly significant hematoma. Mild erythema and warmth. No purulent drainage. Exposed subcutaneous fat along a 3 to 4 cm margin of the laceration. Discussed continued wound care with the patient. She is currently on antibiotics. Her tetanus was updated. Will refer her to Dr. Beatris Beckham, wound care for evaluation and further management. The sutures will need to stay in for at least 2 weeks. I recommended that she keep a close eye on the area for signs of infection. We cleansed the wound with surgical soap and saline. Applied Xeroform gauze with dry 4 x 4's over the laceration. I instructed her to wash with a mild soap and water, pat dry and then reapply a dressing after her shower this evening. We will give her contact information for Dr. Beckham to call on Tuesday for a follow-up appointment this week. Patient and her are comfortable with the plan of care. I also recommended ice packs to the lower leg as well as elevation to reduce swelling. I feel like this laceration was closed actually very well and looks really good in consideration with her health, obesity/edema and general medical condition. Would expect this to have happened in light of the edema in her legs and ongoing swelling due to the hematoma and injury. Patient and her seem appreciative of the care, all questions are sought and answered. Patient is discharged home. Departure Impression Primary Impression: Encounter for assessment of wound Disposition: 01 HOME, SELF-CARE Condition: Stable Departure-Patient Inst. Decision time for Depature: 15:20 Referrals: CAPO SEE DO (PCP/Family) Primary Care Physician BEATRIS BECKHAM MD Add. Discharge Instructions: Keep your left leg elevated while at rest to help decrease swelling. Apply ice packs over the area of the wound intermittently over the next 2 to 3 days to help with swelling and discomfort. After you shower, be sure and pat the wound dry. Apply a square of the Xeroform gauze over the stitches. Cover with 4 x 4's and rewrap. Please call the wound care clinic, Dr. Beckham on Tuesday for a follow-up appointment next week. If you develop a fever over 101, worsening swelling, redness or pain please return to the emergency department for reevaluation. Hydrocodone 5 mg tablets 1/2 to 1 tablet every 6 hours as needed for pain. You can take 1 additional extra strength Tylenol with the hydrocodone for pain management. I have also prescribed you ondansetron/Zofran 4 mg orally disintegrating tablets. You can take 1 every 8 hours as needed for nausea. Sometimes hydroco done can upset your stomach. Hydrocodone can also cause constipation. If you are having to take this daily it is a good idea to take a daily stool softener as well. Return to the emergency department for any new, concerning or emergent complaints. Scripts Ondansetron (Ondansetron Odt) 4 Mg Tab.rapdis 4 MG SL Q8H PRN for NAUSEA/VOMITING, #12 TAB Prov: IZYZ SANTIAGO MD 10/22/23 Hydrocodone/Acetaminophen (Hydrocodone-Acetamin 5-325 mg) 5 Mg-325 Mg Tablet 1 TAB PO Q6H PRN for PAIN-MODERATE (5-7), #12 TAB 1/2 to 1 tablet every 6 hours as needed for pain Prov: IZZY SANTIAGO MD 10/22/23 Images Extremities-Lower 1 - Moderate, Ecchymosis, Edema, Laceration, Swelling, Tenderness Copy Copies To 1: CAPO SEE DO Copies To 2: BEATRIS BECKHAM MD, KATHRYN M MD Oct 22, 2023 15:19
[2023-10-22] MEDS ORDERED: ACHD5005 PO (15:24)
[2023-10-22] MEDS ORDERED: ONDA4TAB11 SL (15:24)
[2023-10-22 15:38] VITALS: BP 118/72
== END 2023-10-22 15:38 | disposition home or self-care (01) ==
LOC: EDUNIT# 14:52 → ER 14:54
DX: S81.812A Laceration without foreign body, left lower leg, initial encounter (principal); E66.9 Obesity, unspecified; G47.30 Sleep apnea, unspecified; Z23 Encounter for immunization; Z99.89 Dependence on other enabling machines and devices; Z68.41 Body mass index [BMI] 40.0-44.9, adult; V81.4XXA Person injured while boarding or alighting from railway train or railway vehicle, initial encounter

== ENCOUNTER → 2023-10-25 | Outpatient (CLI) | payer MEDICARE ==
[~2023-10-25] MED LIST changes: +ACHD5005 PO; +ONDA4TAB11 SL
== END ==
LOC: WOUNDCARE 13:16
PROVIDERS: ATTEND Family Medicine
DX: I96 Gangrene, not elsewhere classified (principal); S81.812A Laceration without foreign body, left lower leg, initial encounter; I89.0 Lymphedema, not elsewhere classified; N18.30 Chronic kidney disease, stage 3 unspecified; D46.4 Refractory anemia, unspecified; J44.9 Chronic obstructive pulmonary disease, unspecified
CPT/HCPCS: 99212

== ENCOUNTER → 2023-11-04 | Outpatient (CLI) | payer MEDICARE | LOC: WOUNDCARE 10:17 | PROVIDERS: ATTEND Family Medicine | DX: I96 Gangrene, not elsewhere classified (principal); S81.812A Laceration without foreign body, left lower leg, initial encounter; I89.0 Lymphedema, not elsewhere classified; N18.30 Chronic kidney disease, stage 3 unspecified; D46.4 Refractory anemia, unspecified; J44.9 Chronic obstructive pulmonary disease, unspecified; S80.822A Blister (nonthermal), left lower leg, initial encounter | CPT/HCPCS: 11042; 11045; 87070; 87205; A6197; G0463; 87077 ==